=== PATIENT | female | born 1945 | race Caucasian/White ===

== ENCOUNTER 2022-07-15 05:37 | Outpatient (CLI) | payer MEDICARE ==
[~2022-07-15] VITALS: Ht 162.6 cm; Wt 83.9 kg
[~2022-07-15 05:37] MED LIST: DONE10TA5 PO; FLORASTOR 250 MG PO; LEVE100S PO; LEVE500T19 PO; LISI20TA PO; LORA0.5T34 PO; METH500T7 PO; METO25TA PO; NAPR-689 PO; OMEP20CA12 PO; RISP0.2516 PO; ZOLP10TA5 PO; [UNRECOGNIZED DRUG - OTHER] PO
[2022-07-15] MEDS ORDERED: MTP25TSR PO (11:47)
[2022-07-15] MEDS ORDERED: LEVE10006 PO (11:47)
[2022-07-15] MEDS ORDERED: DONE10TA41 PO (11:47)
[2022-07-15] MEDS ORDERED: CHOL10007 PO (11:47)
[2022-07-15] MEDS ORDERED: FERR-84 PO (11:47)
[2022-07-15] MEDS ORDERED: OXYB5TAB13 PO (11:47)
[2022-07-15] MEDS ORDERED: RISP0.5T65 PO (11:47)
[2022-07-15] MEDS ORDERED: PRAM0.252 PO (11:47)
[2022-07-15] MEDS ORDERED: LISI20TA26 PO (11:47)
[2022-07-15] MEDS ORDERED: OMEP20TA56 PO (11:47)
== END 2022-07-15 11:50 | disposition home or self-care (01) ==
LOC: PREOP 05:37
PROVIDERS: ATTEND Surgery
DX: Z01.818 Encounter for other preprocedural examination (principal)

== ENCOUNTER 2022-07-26 10:00 | Day surgery (SDC) | payer MEDICAID, MEDICARE ==
[~2022-07-26] VITALS: Ht 162.6 cm; Wt 83.9 kg
[~2022-07-26 10:00] MED LIST changes: +CHOL10007 PO; +DONE10TA41 PO; +FERR-84 PO; +LEVE10006 PO; +LISI20TA26 PO; +MTP25TSR PO; +OMEP20TA56 PO; +OXYB5TAB13 PO; +PRAM0.252 PO; +RISP0.5T65 PO
[2022-07-26] MEDS ORDERED: LACTATED RINGERS 1,000 ML IV STA (10:02)
[2022-07-26] MEDS ORDERED: HURRICAINE EXT TUBE (BENZOCAINE) XX PRN (10:15)
[2022-07-26 10:20] VITALS: BP 168/79
--- NOTE | 2022-07-26 10:46 | Progress Note-Pre Operative ---
Pre-Operative Progress Note Date of Available H&P: Jul 08, 2022 Date H&P Reviewed: Jul 26, 2022 Time H&P Reviewed: 10:45 History & Physical: H&P Reviewed, Patient Examed, No changes noted Pre-Operative Diagnosis: Anemia, colon screening KOURTNEY BHATIA DO Jul 26, 2022 10:46
[2022-07-26] MEDS ORDERED: PROPOFOL INJECTION 50 ML IV ONE (11:37)
[2022-07-26 12:10] VITALS: BP 121/60
[2022-07-26 12:15] VITALS: BP 143/119
--- NOTE | 2022-07-26 12:16 | Progress Note-Post Operative ---
Post-Operative Progess Note Surgeon (s)/Lcac Operator (s) Surgeon KOURTNEY BHATIA DO Lcac Operator: none Pre-Operative Diagnosis Anemia, colon screening Post-Operative Diagnosis Gastritis Hiatal Hernia Polyp/mass Asc colon diverticula int hemorrhoids Procedure & Operative Findings Date of Procedure 07/26/22 Procedure Performed/Findings EGD with biopsy Colonoscopy with hot biopsy PROCEDURE NOTE: After informed consent was obtained, the patient was brought to the endoscopy suite, placed in bed in left lateral decubitus position. She was administered IV sedation by Anesthesia who then monitored vitals the entire time, heart rate, blood pressure and pulse ox and the scope was inserted down the mouth through the esophagus into the stomach. On the way down, noted some mild esophagitis, took a picture, pushed into the stomach, pushed past the antrum into the duodenum. Duodenum looked good. Pulled back and did a biopsy of antrum, then retroflexed the scope, saw very small hiatal hernia, took a picture of this and then pulled the scope into the GE junction and then did a biopsy of the GE junction. Pushed the scope back into the stomach, suctioned all the air out of the stomach. At this point pulled the scope up the esophagus and out the mouth. Switched camera, switched gloves, went down below and started the colonoscopy. Pushed towards the cecum and just before I got to the cecum saw a mass/large polyp. I took a picture of this and then pushed past it and was only about 15cm from the cecum, took a picture of appendiceal orifice and noted the ileocecal valve. Then slowly withdrew the scope insufflating to look circumferentially at the clark starting in the cecum and up the ascending colon. Elected to do a hot biopsy of the mass/large polyp; got two biopsies. Continued up to the hepatic flexure, then down the transverse colon to the splenic flexure, into the descending colon and down into the sigmoid. Throughout here I saw some large diverticula and took a picture. Finally, into the rectal vault and retroflexed the scope. Took picture of the internal hemorrhoids. The patient tolerated the procedure and she recovered in the endoscopy suite. Recommended for repeat colonoscopy in 1 year Anesthesia Type IV sedation by Anesthesia Estimated Blood Loss Estimated blood loss (mL): scant Specimens/Packing Specimens Removed antral bx GE jxn bx Asc colon mass KOURTNEY BHATIA DO Jul 26, 2022 12:16
--- NOTE | 2022-07-26 12:18 | Endoscopy Discharge Instruct ---
Endo Procedure/Findings Findings 1.: Hiatal Hernia, Gastritis 2.: Polyp 3.: Diverticulosis 4.: Internal Hemorrhoids Discharge Instructions - Activity: You might feel a little sleepy until tomorrow. This is due to the medicine you received to relax you. Until tomorrow, you should: NOT drive a car, operate machinery or power tools. NOT drink any alcoholic beverages. NOT make any important decisions or sign importortant papers. Do not return to work until tomorrow, unless otherwise instructed. Resume previous activities tomorrow. Diet: Start by taking liquids. If you tolerate liquids, advance to solid food. 1.: EGD in 3 years 2.: Colonoscopy in 1 year Notify Physician - If you experience excessive bleeding, unusual abdominal pain, fever, or chest pain, contact your doctor immediately. KOURTNEY BHATIA DO Jul 26, 2022 12:18
[2022-07-26 12:20] VITALS: BP 146/71
[2022-07-26 12:55] VITALS: BP 150/72
--- NOTE | 2022-07-26 13:27 | Anesthesia-General Post-Op ---
MAC Patient Condition Mental Status/LOC: Same as Preop Cardiovascular: Satisfactory Nausea/Vomiting: Absent Respiratory: Satisfactory Pain: Controlled Complications: Absent Post Op Complications Complications None Follow Up Care/Instructions Patient Instructions None needed. Anesthesiology Discharge Order Discharge Order Patient was doing well after the procedure with no complaints, stable vital signs, no apparent adverse anesthesia problems. No complications reported per nursing. RUBEN MENA DO Jul 26, 2022 13:27
== END 2022-07-26 13:19 | disposition home or self-care (01) ==
LOC: ENDO 10:00
PROVIDERS: ATTEND Surgery
DX: C18.2 Malignant neoplasm of ascending colon (principal); K29.50 Unspecified chronic gastritis without bleeding; K44.9 Diaphragmatic hernia without obstruction or gangrene; K57.30 Diverticulosis of large intestine without perforation or abscess without bleeding; K64.8 Other hemorrhoids; K63.5 Polyp of colon; K20.90 Esophagitis, unspecified without bleeding; D50.9 Iron deficiency anemia, unspecified; E66.9 Obesity, unspecified; Z68.31 Body mass index [BMI] 31.0-31.9, adult

== ENCOUNTER → 2022-08-09 | Outpatient (CLI) | payer MEDICARE | LOC: CARD 12:58 | PROVIDERS: ATTEND Internal Medicine Cardiovascular Disease | DX: I08.3 Combined rheumatic disorders of mitral, aortic and tricuspid valves (principal); I11.9 Hypertensive heart disease without heart failure; I25.10 Atherosclerotic heart disease of native coronary artery without angina pectoris | CPT/HCPCS: 93306 ==

== ENCOUNTER 2022-08-11 05:58 | Outpatient (CLI) | payer MEDICARE ==
[~2022-08-11] VITALS: Ht 162.6 cm; Wt 84.8 kg
[2022-08-12] MEDS ORDERED: FERR220S15 PO (10:15)
== END 2022-08-12 10:16 | disposition home or self-care (01) ==
LOC: PREOP 05:58
PROVIDERS: ATTEND Surgery
DX: Z01.818 Encounter for other preprocedural examination (principal)

== ENCOUNTER 2022-08-18 08:55 | Inpatient (IN) | payer MEDICARE ==
[2022-08-18] VITALS (11 sets, daily range): BP systolic 116–187; BP diastolic 69–104
[~2022-08-18] VITALS: Ht 162.5 cm; Wt 98.7 kg
[~2022-08-18 08:55] MED LIST changes: +FERR220S15 PO
[2022-08-18] MEDS ORDERED: CLINDAMYCIN 600 MG/50 ML IVPB 50 ML IV ONE (09:15)
[2022-08-18] MEDS ORDERED: BUP/EPI 0.5% 1:200,000 (SENSORCAINE) 30 ML VIAL ONE (09:15)
[2022-08-18] MEDS ORDERED: ROCURONIUM 50 MG/5 ML (ZEMURON) VIAL IV ONE (09:58)
[2022-08-18] MEDS ORDERED: proPOfol 200 MG/20 ML (DIPRIVAN) VIAL IV ONE (09:58)
[2022-08-18] MEDS ORDERED: ONDANSETRON 4 MG/2 ML (SDV) Z0FRAN ONE (09:58)
[2022-08-18] MEDS ORDERED: LIDOCAINE PF 2% 5 ML (XYLOCAINE) VIAL ONE (09:58)
[2022-08-18] MEDS ORDERED: fentaNYL INJ 100 MCG/2 ML AMP ONE ×2 (09:58→12:44)
[2022-08-18] MEDS ORDERED: MIDAZOLAM 2 MG/2 ML (VERSED) VIAL ONE (09:59)
[2022-08-18 10:10] LABS: BASOPHILS % (AUTO) 1 % (0-10); EOSINOPHILS # (AUTO) 0.1 10^3/uL (0.0-0.3); EOSINOPHILS % (AUTO) 2 % (0-10); HEMATOCRIT 30 % (35-52); HEMOGLOBIN 8.8 g/dL (11.5-16.0); LYMPHOCYTES # (AUTO) 1.1 10^3/uL (1.0-4.0); LYMPHOCYTES % (AUTO) 29 % (12-44); MEAN CORPUSCULAR HEMOGLOBIN 21 pg (25-34); MEAN CORPUSCULAR HGB CONC 29 g/dL (32-36); MEAN CORPUSCULAR VOLUME 72 fL (80-99); MEAN PLATELET VOLUME 9.5 fL (9.0-12.2); MONOCYTES # (AUTO) 0.5 10^3/uL (0.0-1.0); MONOCYTES % (AUTO) 13 % (0-12); NEUTROPHILS # (AUTO) 2.2 10^3/uL (1.8-7.8); NEUTROPHILS % (AUTO) 56 % (42-75); PLATELET COUNT 294 10^3/uL (130-400); WHITE BLOOD COUNT 3.9 10^3/uL (4.3-11.0)
[2022-08-18] MEDS: LACTATED RINGERS 1,000 ML IV PRN ×3 (10:39→13:04)
--- NOTE | 2022-08-18 10:43 | Progress Note-Pre Operative ---
Pre-Operative Progress Note Date of Available H&P: Aug 03, 2022 Date H&P Reviewed: Aug 18, 2022 Time H&P Reviewed: 10:39 History & Physical: H&P Reviewed, Patient Examed, No changes noted Pre-Operative Diagnosis: Colon Cancer - right side KOURTNEY BHATIA DO Aug 18, 2022 10:43
[2022-08-18] MEDS ORDERED: BUP/EPI 0.5% 1:200,000 (SENSORCAINE) 30 ML VIAL INJ ONE (11:35)
[2022-08-18] MEDS ORDERED: GLYCOPYRROLATE 0.2 MG/ML (ROBINUL) 2 ML VIAL ONE (12:11)
[2022-08-18] MEDS ORDERED: NEOSTIGMINE (BLOXIVERZ ) 1 MG/1ML 10 ML VIAL ONE (12:11)
[2022-08-18] MEDS ORDERED: PHENYLEPHRINE INJ 10 MG/ML (FOR PYXIS KITS ONLY) ONE (12:13)
[2022-08-18] MEDS ORDERED: PHENYLEPHRINE 100 MCG/ML 10 ML (ANESTHESIA) SYR ONE (12:14)
--- NOTE | 2022-08-18 12:14 | Progress Note-Post Operative ---
Post-Operative Progess Note Surgeon (s)/Media Promoter (s) Surgeon KOURTNEY BHATIA DO Media Promoter: Jah Pre-Operative Diagnosis Colon Cancer - right side Post-Operative Diagnosis same plus intraperitoneal mass Procedure & Operative Findings Date of Procedure 08/18/22 Procedure Performed/Findings 1) Lap hand assisted Right Hemicolectomy 2) Exc intraperitoneal mass Anesthesia Type GET Estimated Blood Loss Estimated blood loss (mL): less than 50ml Specimens/Packing Specimens Removed right colon with appy and portion of TI intraperitoneal mass KOURTNEY BHATIA DO Aug 18, 2022 12:14
[2022-08-18] MEDS ORDERED: BUPIVACAINE 0.5% 30 ML (SENSORCAINE) VIAL ONE (12:17)
[2022-08-18] MEDS ORDERED: BUPIVACAINE 0.5% 30 ML (SENSORCAINE) VIAL INJ ONE (12:19)
[2022-08-18] MEDS ORDERED: SUGAMMADEX 500 MG/5 ML VIAL (BRIDION) IV ONE ×2 (12:43→13:14)
[2022-08-18] MEDS ORDERED: HYDROmorphone 2 MG/ML VIAL (DILAUDID) ONE (12:56)
[2022-08-18] MEDS ORDERED: HYDROmorphone 2 MG/ML VIAL (DILAUDID) IV ONE (13:00)
[2022-08-18] MEDS ORDERED: fentaNYL INJ 100 MCG/2 ML AMP IVP ONE (13:00)
[2022-08-18] MEDS ORDERED: ONDANSETRON 4 MG/2 ML (SDV) Z0FRAN IVP PRN (13:00)
[2022-08-18] MEDS ORDERED: ESMOLOL 100 MG/10 ML (BREVIBLOC) VIAL ONE (13:14)
[2022-08-18] MEDS: metroNIDAZOLE 500MG/100ML IVPB 100 ML IV SCH ×2 (16:01→23:30)
[2022-08-18] MEDS: LACTATED RINGERS 1,000 ML IV SCH ×2 (16:01→19:55)
[2022-08-18] MEDS: ACETAMINOPHEN 500 MG TAB (TYLENOL) PO SCH ×2 (16:02→23:31)
[2022-08-18] MEDS: KETOROLAC 30 MG/ML VIAL IVP SCH ×2 (16:02→21:51)
[2022-08-18] MEDS: morphine INJ 4 MG/ML 1 ML (VIAL/SYRINGE) IVP PRN (20:06)
[2022-08-18] MEDS: CLINDAMYCIN 600 MG/50 ML IVPB 50 ML IV SCH (20:06)
--- NOTE | 2022-08-18 23:36 | OPERATIVE REPORT ---
DATE OF SERVICE: 08/18/2022 PREOPERATIVE DIAGNOSIS: Right colon cancer. POSTOPERATIVE DIAGNOSES: 1. Right colon cancer. 2. Intraperitoneal mass. SURGEON: Cruzito Aragon DO TRIMMER HELPER: Monico Tyson DO ANESTHESIA: General endotracheal tube. SPECIMEN: 1. Right colon with cecum, ascending colon, appendix and portion of terminal ileum. 2. Intraperitoneal mass. ESTIMATED BLOOD LOSS: Less than 50 mL FLUIDS: Per anesthesia. POSTOPERATIVE CONDITION: Stable. INDICATIONS FOR PROCEDURE: The patient is a 76-year-old female who had a colonoscopy, which unfortunately found colon cancer on the right colon, needed to get this removed. FINDINGS: The patient had a right colon mass. Did not feel any obvious lymphadenopathy. Liver felt okay. There was a small white mass on the small intestine. This intraperitoneal mass was removed and sent to pathology. DESCRIPTION OF PROCEDURE: After informed consent was obtained, the patient was brought to the operating room and placed on the table in supine position. She was sterilely prepped and draped in normal fashion. We made an incision in the midline from just below the umbilicus to just above. Approximately 8 cm incision using a 15 blade, carried down through the skin and subcutaneous tissue, then deepened down to subcutaneous tissue with Bovie electrocautery down to fascia. Fascia incised with Bovie electrocautery and bluntly entered the abdomen, swept a finger around and made sure the fascia was about 8 cm defect as well. Placed a malleable and then placed another port, a 12 mm port in the upper abdomen using local lidocaine. An 11 blade for stab incision and VersaStep system, all done under direct visualization. At this point, hooked this up to the pneumoperitoneum and placed a wound protector and then the GelPort and then placed another port in the right lower quadrant, a 5 mm VersaStep system using local lidocaine 11 blade for stab incision and VersaStep system, all under direct visualization. The patient was placed slightly reverse Trendelenburg, rotated to the left, placed my hand into the abdomen. I could feel the tumor and then used the spatula with Bovie cautery to come along the white line of Toldt in the right pericolic gutter going up around the hepatic flexure and across taking some adhesions down from the liver and found the duodenum, pushed this away and down and rotated the rest of the specimen. The right colon and some of the transverse colon into the midline, freed up down around the terminal ileum as well. Once I had this freed up with some blunt dissection and Bovie electrocautery, then elected to pull this through the hand port, able to get this up and placed a GAYATHRI-75 across the terminal ileum just past the mesenteric sail, clamped and fired thereby transecting and made a defect in the mesentery with Bovie electrocautery and then went above on the transverse colon about 6 inches away from the colon cancer. Made a defect in the mesentery with Bovie cautery. Then, using another GAYATHRI-75 clamped, held for 30 seconds and then fired thereby transecting this and then came across the mesentery going straight down and then across to take this portion of colon out. The cecum, ascending colon and portion of transverse colon as well as terminal ileum and appendix. This was removed, passed off the table and sent to pathology. I then elected to create a [id number] functional end-to-end anastomosis coloenterotomy. Made a defect in the antimesenteric border of the small intestine as well another defect in the taenia of the transverse colon with Bovie electrocautery, placed a GAYATHRI-75 one side on either one of the intestine clamped and held this together then held for 30 seconds and then fired thereby creating a [id number] functional end-to-end anastomosis using another GAYATHRI-75 to close the coloenterotomy. This closed nicely. I had irrigated with IrriSept to reduce infection, then irrigated with some saline, suctioned this out. There was no bleeding. Found what looked like a small white mass in the peritoneum right along the small intestine. Elected to remove this with Bovie electrocautery. There was a little bit of bleeding. This was controlled with 3-0 Vicryl suture. The patient was then placed supine, dropped everything back in, suctioned this out, looked around, did not see any other obvious pathology. At this point, then elected to close the incision, removed the wound protector, closed the fascia with #1 PDS suture running from the inferior to the superior portion tying to itself and then looked back in the abdomen. The incision was closed nicely, took a picture of this and then removed all ports under direct visualization allowed pneumoperitoneum to escape, closed the port incisions with adriana as well as closed the midline incision with adriana. Area was cleaned and dried, dressings placed. The patient tolerated the procedure. Sponge and needle counts correct at the end of the case and she was transferred to recovery room in stable condition. Dr. Tyson assisted in this case, helping to make incisions, close incisions, identify anatomy and hold anatomy out of the way. Job ID: [id number] DocumentID: [id number] Dictated Date: 08/18/2022 15:17:53 [place] Mixer Operator Date: 08/18/2022 23:34:00 Dictated By: DO JERO MCKNIGHT
[2022-08-19] VITALS (7 sets, daily range): BP systolic 105–164; BP diastolic 52–74
[2022-08-19] MEDS: morphine INJ 4 MG/ML 1 ML (VIAL/SYRINGE) IVP PRN ×2 (00:21→23:08)
[2022-08-19] MEDS: LACTATED RINGERS 1,000 ML IV SCH ×4 (01:10→22:49)
[2022-08-19] MEDS: KETOROLAC 30 MG/ML VIAL IVP SCH ×4 (03:58→20:03)
[2022-08-19] MEDS: CLINDAMYCIN 600 MG/50 ML IVPB 50 ML IV SCH (03:58)
[2022-08-19] MEDS: ACETAMINOPHEN 500 MG TAB (TYLENOL) PO SCH ×3 (06:29→22:50)
--- NOTE | 2022-08-19 08:01 | Progress Note - Surgery ---
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 She says that she is feeling tired this morning and has been experiencing some pain in her stomach that she describes as crampy, 4/10, worsened by movement and mostly present in the midline of her abdomen. She has not yet had a BM or passed flatus. Has not been up and ambulating since her surgery. During the interview, she became nauseous and vomited while complaining of worsening stomach pain. For this she was administered toradol. Review of Systems General: No Chills, No Night Sweats; Fatigue HEENT: No Head Aches, No Visual Changes Pulmonary: No Dyspnea, No Cough Cardiovascular: No: Chest Pain, Palpitations Gastrointestinal: Nausea, Vomiting, Abdominal Pain, Other (Has not passed flatus or had a BM) Genitourinary: Other (Has not urinated since her catheter was removed) Neurological: No: Weakness, Numbness, Confusion Objective Exam Vital Signs Date Time Temp Pulse Resp B/P (MAP) Pulse Ox O2 Delivery O2 Flow Rate FiO2 08/19/22 07:40 36.5 68 18 105/53 (70) 100 Nasal Cannula 3.00 08/19/22 06:13 Nasal Cannula 3.00 08/19/22 04:31 36.3 69 20 105/53 (70) 98 Nasal Cannula 3.00 08/19/22 00:02 36.6 75 20 109/52 (71) 95 Nasal Cannula 3.00 08/18/22 20:10 Nasal Cannula 3.00 08/18/22 19:57 36.5 82 16 116/69 (85) 98 Nasal Cannula 3.00 08/18/22 16:39 Nasal Cannula 3.00 08/18/22 16:06 36.4 118 10 133/75 (94) 99 Nasal Cannula 3.00 08/18/22 14:06 36.1 105 18 163/74 (103) 96 Nasal Cannula 3.00 08/18/22 13:50 Nasal Cannula 3.00 08/18/22 13:40 Nasal Cannula 3.00 08/18/22 13:40 36.5 22 160/80 (106) 95 Nasal Cannula 3.00 08/18/22 13:30 14 162/81 (108) 93 OxyMask 4.00 08/18/22 13:25 OxyMask 10 08/18/22 13:20 16 166/87 (113) 94 OxyMask 10 08/18/22 13:10 24 175/95 (121) 94 OxyMask 10 08/18/22 13:10 OxyMask 10 08/18/22 13:00 12 160/91 (114) 93 OxyMask 10 08/18/22 12:55 OxyMask 10 08/18/22 12:50 12 183/104 (130) 96 OxyMask 10 08/18/22 12:40 Non Rebreather 10 08/18/22 12:40 36.5 20 187/102 (130) 95 Non Rebreather 10 08/18/22 09:15 36.6 104 20 147/90 (109) 98 Room Air 08/18/22 09:05 98 Room Air I & O 08/19/22 07:00 Intake Total 3400 ml Output Total 650 ml Balance 2750 ml Capillary Refill : General Appearance: Mild Distress (Patient became nauseous during the interview and began to experience increased abdominal pain) HEENT: PERRL/EOMI, Moist Mucous Membranes; No Scleral Icterus (L), No Scleral Icterus (R) Neck: Non Tender, Supple; No Carotid Bruit, No Thyromegaly Respiratory: Chest Non Tender, Lungs Clear, Normal Breath Sounds, No Accessory Muscle Use, No Respiratory Distress Cardiovascular: No Gallop, No Murmur, Normal Peripheral Pulses Peripheral Pulses: 2+ Radial Pulses (R), 2+ Radial Pulses (L) Gastrointestinal: soft, abnormal bowel sounds (Absent bowel sounds), distended; No guarding; tenderness (Mostly relegated to midline) Extremity: Normal Capillary Refill, Non Tender, No Calf Tenderness, Calf Tenderness, Pedal Edema (Wearing sequential compression stockings) Neurologic/Psychiatric: Alert, Oriented x3 Skin: Normal Color, Warm/Dry; No Jaundice Results Lab Laboratory Tests 08/18/22 10:00: White Blood Count 3.9L, Red Blood Count 4.17, Hemoglobin 8.8L, Hematocrit 30L, Mean Corpuscular Volume 72L, Mean Corpuscular Hemoglobin 21L, Mean Corpuscular Hemoglobin Concent 29L, Red Cell Distribution Width 18.2H, Platelet Count 294, Mean Platelet Volume 9.5, Immature Granulocyte % (Auto) 0, Neutrophils (%) (Auto) 56, Lymphocytes (%) (Auto) 29, Monocytes (%) (Auto) 13H, Eosinophils (%) (Auto) 2, Basophils (%) (Auto) 1, Neutrophils # (Auto) 2.2, Lymphocytes # (Auto) 1.1, Monocytes # (Auto) 0.5, Eosinophils # (Auto) 0.1, Basophils # (Auto) 0.0, Immature Granulocyte # (Auto) 0.0 Assessment/Plan Assessment/Plan Admission Diagonsis Moderately differentiated adenocarcinoma of ascending colon Assessment/Plan Moderately differentiated adenocarcinoma of ascending colon - post-op day 1 following bowel resection, patient has not yet passed flatus or had a BM, not yet up and ambulating, will continue pain and nausea management and plan to have patient up and walking with nursing assistance. Anemia - possibly due to iron deficiency or chronic disease, continue to monitor for changes in hemoglobin and physical signs of worsening anemia. DVT prophylaxis - enoxaparin sodium to be administered. CRUZITO ARAGON DO 08/19/22 1648: Subjective Time Seen by a Provider: 11:47 Subjective/Events-last exam Pt seen and examined, sitting up in chair. She had some emesis this am and still feels a little nauseous. She would like to advance her diet, wants more than liquids. She apparently did not walk until just before I saw her this morning. Review of Systems General: No Chills, No Night Sweats; Fatigue Pulmonary: No Dyspnea, No Cough Cardiovascular: No: Chest Pain, Palpitations Gastrointestinal: Nausea, Vomiting, Abdominal Pain, Other (Has not passed flatus or had a BM) Genitourinary: Other (Has not urinated since her catheter was removed) Objective Exam General Appearance: Mild Distress (Patient became nauseous during the interview and began to experience increased abdominal pain) HEENT: PERRL/EOMI, Moist Mucous Membranes Respiratory: Lungs Clear, Normal Breath Sounds, No Accessory Muscle Use, No Respiratory Distress Cardiovascular: Regular Rate, Rhythm, No Murmur Gastrointestinal: abnormal bowel sounds (Absent bowel sounds), distended; No guarding; tenderness (Mostly relegated to midline), other (incisions are c/d/i) Extremity: Pedal Edema (Wearing sequential compression stockings) Assessment/Plan Assessment/Plan Assessment/Plan S/P Right Hemicolectomy Plan to encourage ambulation and IS use, will also have PT see to help pt walk. Will keep on clears and if she feel better will try soft diet at dinner. Supervisory-Addendum Brief Verification & Attestation Participated in pt care: history, MDM, physical Personally performed: exam, history, MDM, supervision of care Care discussed with: Medical Student Procedures: n/a Verification and Attestation of Medical Student E/M Service A medical student performed and documented this service. I then reviewed and verified all information documented by the medical student and made modifications to such information, when appropriate. I personally performed a physical exam, medical decision making and then discussed any differences between the notes and made revisions as necessary to create one note. Cruzito Aragon , 08/19/22 , 16:48 MARY ANN RAMIREZ Aug 19, 2022 08:01 CRUZITO ARAGON DO Aug 19, 2022 16:48
--- NOTE | 2022-08-19 08:26 | Anesthesia-General Post-Op ---
General Patient Condition Mental Status/LOC: Same as Preop Cardiovascular: Satisfactory Nausea/Vomiting: Absent Respiratory: Satisfactory Pain: Controlled Complications: Absent Post Op Complications Complications None Follow Up Care/Instructions Patient Instructions None needed. Anesthesia/Patient Condition Patient Condition Patient is doing well, no complaints, stable vital signs, no apparent adverse anesthesia problems. No complications reported per nursing. FRANCESCO SHEIKH CRNA Aug 19, 2022 08:26
[2022-08-19] MEDS: PANTOPRAZOLE 40 MG (PROTONIX) VIAL IVP SCH (08:40)
[2022-08-19] MEDS ORDERED: CATHETER FLUSH 10 ML SYR IVP PRN (09:00)
[2022-08-19] MEDS ORDERED: PRAM0.257 PO (11:08)
[2022-08-19] MEDS: ENOXAPARIN 40 MG/0.4 ML (LOVENOX) SYR SC SCH (14:12)
--- NOTE | 2022-08-19 14:26 | Physical Therapy Evaluation ---
PT Evaluation-General Medical Diagnosis Admission Date Aug 18, 2022 at 08:55 Medical Diagnosis: colon cancer Onset Date: Aug 18, 2022 Therapy Diagnosis Therapy Diagnosis: debility Height/Weight Height (Feet): 5 Height (Inches): 4.00 Weight (Pounds): 193 Weight (Ounces): 3.0 Precautions Precautions/Isolations: Fall Prevention, Standard Precautions Referral Physician: Margo Medical History Current History s/p colon resection Reviewed History: Yes Social History Home: Single Level Current Living Status: Other Family Prior Prior Level of Function SCALE: Activities may be completed with or without assistive devices. 7-Rsdzlbdiqn-roaaysl completes the activity by him/herself with no assistance from a helper. 5-Set-up or Clean-up Assistance-helper sets up or cleans up; patient completes activity. [place] assists only prior to or following the activity. 4-Supervision or Touching Assistance-helper provides verbal cues and/or touching/steadying and/or contact guard assistance as patient completes activity. Assistance may be provided throughout the activity or intermittently. 3-Partial/Moderate Assistance-helper does LESS THAN HALF the effort. [place] lifts, holds or supports trunk or limbs, but provides less than half the effort. 2-Substantial/Maximal Assistance-helper does MORE THAN HALF the effort. [place] lifts or holds trunk or limbs and provides more than half the effort. 2-Hsopnjgme-elskvn does ALL the effort. Patient does none of the effort to complete the activity. Or, the assistance of 2 or more helpers is required for the patient to complete the activity. If activity was not attempted, code reason: 7-Patient Refused. 9-Not Applicable-not attempted and the patient did not perform the activity before the current illness, exacerbation or injury. 10-Not Attempted due to Environmental Limitations-(lack of equipment, weather restraints, etc.). 88-Not Attempted due to Medical Conditions or Safety Concerns. Bed Mobility: 6 Transfers (B,C,W/C): 6 Gait: 6 Stairs: 6 Indoor Mobility (Ambulation): Independent Stairs: Independent Prior Devices Use: None PT Evaluation-Current Subjective Patient agrees to PT. Pain Numeric Pain Scale: 8 Location: Lower Location Body Site: Abdomen Pain Description: Acute Objective Patient Orientation: Person, Time, Situation Attachments: IV ROM/Strength ROM Lower Extremities bilateral LE WFL Strength Lower Extremities 3/5 grossly bilateral LE all planes Sensory Vision: Functional Hearing: Functional Transfers Sit to Lying (QC): 3 Lying to Sitting/Side of Bed(Q: 3 Sit to Stand (QC): 3 Gait Mode of Locomotion: Walk Anticipated Mode of Locomotion: Walk Walk 10 feet (QC): 4 Walk 50 ft with 2 Turns(QC): 4 Walk 150 ft (QC): 4 Distance: 225' Gait Assistive Device: FWW Comments/Gait Description slow, steady pace Balance Sitting Static: Normal Sitting Dynamic: Normal Standing Static: Fair Standing Dynamic: Fair Assessment/Needs Patient will benefit from skilled PT to address functional strength and mobility to improve current LOF to safely return to home with family at maximum LOF. Rehab Potential: Fair PT Mcc Goals Radial Saw Operator Goals PT Mcc Goals Time Frame: Sep 04, 2022 Roll Left & Right (QC): 6 Sit to Lying (QC): 6 Lying-Sitting on Side/Bed(QC): 6 Sit to Stand (QC): 6 Chair/Bxi-uq-Mikos Xfer(QC): 6 Toilet Transfer (QC): 6 Walk 10 feet (QC): 6 Walk 50ft with 2 Turns (QC): 6 Walk 150 ft (QC): 6 PT Plan Problem List Problem List: Activity Tolerance, Functional Strength, Safety, Balance, Gait, Transfer, Bed Mobility Treatment/Plan Treatment Plan: Continue Plan of Care Treatment Plan: Bed Mobility, Education, Functional Activity Earlene, Functional Strength, Gait, Safety, Therapeutic Exercise, Transfers Treatment Duration: Sep 04, 2022 Frequency: 6 times per week Estimated Hrs Per Day: .25 hour per day Patient and/or Family Agrees t: Yes Time Time In: 1322 Time Out: 1340 DATE: Aug 19, 2022 Total Billed Treatment Time: 18 Total Billed Treatment 1 visit EVMod 18 min BRIGETTE FRANCISCO PT Aug 19, 2022 14:26
[2022-08-19] MEDS: ONDANSETRON 4 MG/2 ML (SDV) Z0FRAN IVP PRN (20:03)
[2022-08-20 03:29] VITALS: BP 163/72
[2022-08-20] MEDS: KETOROLAC 30 MG/ML VIAL IVP SCH ×4 (03:32→21:58)
[2022-08-20] MEDS: ACETAMINOPHEN 500 MG TAB (TYLENOL) PO SCH ×3 (06:02→23:47)
[2022-08-20] MEDS: LACTATED RINGERS 1,000 ML IV SCH ×3 (06:14→22:09)
--- NOTE | 2022-08-20 07:26 | Progress Note - Surgery ---
TOYA JUNG 08/20/22 0726: Subjective Date Seen by a Provider: Aug 20, 2022 Time Seen by a Provider: 07:14 Subjective/Events-last exam Patient is sitting up in bed uncomfortably this morning. Stating that she has a "rough" night. She had worsening abdominal pain throughout the night which she said was an 8/10 and then received morphine which she says improved it to a 5/10 currently. Her current pain has remained unchanged from yesterday. She was not able to eat any soft food. She sipped some apple juice yesterday with little discomfort, but has not sipped any other liquids at this time. She has not had any flatus or BM since surgery. She was able to ambulate down the trivedi twice yesterday with PT. She is using IS. She had multiple episodes of dry heaving throughout the night. She did have nausea this morning but was improved with Zofran. She denies SOB, chest pain, fever, or chills. Is voiding without problem. She has no other complaints at this time. Review of Systems General: No Chills, No Night Sweats; Fatigue HEENT: No Head Aches, No Sore Throat Pulmonary: No Dyspnea, No Cough Cardiovascular: No: Chest Pain, Edema Gastrointestinal: Nausea, Vomiting (Dry heaving), Abdominal Pain Genitourinary: No Dysuria, No Hematuria Musculoskeletal: No: neck pain, back pain Neurological: Weakness; No: Numbness Objective Exam Vital Signs Date Time Temp Pulse Resp B/P (MAP) Pulse Ox O2 Delivery O2 Flow Rate FiO2 08/20/22 03:29 36.3 105 20 163/72 (102) 93 Nasal Cannula 2.00 08/19/22 23:05 37.0 94 20 164/74 (104) 95 Nasal Cannula 2.00 08/19/22 20:11 95 Nasal Cannula 2.00 08/19/22 20:10 36.3 95 16 137/63 (87) 83 Room Air 08/19/22 19:50 Room Air 08/19/22 16:00 36.9 75 16 149/67 (94) 91 Room Air 08/19/22 15:33 Room Air 08/19/22 11:33 36.7 66 18 110/57 (74) 91 Room Air 08/19/22 08:18 Room Air 0.00 08/19/22 08:07 99 Nasal Cannula 3.00 08/19/22 08:00 99 Room Air 08/19/22 07:40 36.5 68 18 105/53 (70) 100 Nasal Cannula 3.00 I & O 08/20/22 07:00 Intake Total 5920 ml Output Total 1800 ml Balance 4120 ml Capillary Refill : General Appearance: No Apparent Distress, Anxious, Mild Distress, Obese HEENT: PERRL/EOMI, Moist Mucous Membranes Neck: Non Tender, Supple Respiratory: Lungs Clear, Normal Breath Sounds, No Accessory Muscle Use, No Respiratory Distress Cardiovascular: Regular Rate, Rhythm, No Murmur Peripheral Pulses: 2+ Radial Pulses (R), 2+ Radial Pulses (L) Gastrointestinal: distended; No guarding; tenderness (Diffuse) Extremity: No Pedal Edema, Calf Tenderness, Other (Wearing sequential compression stockings) Neurologic/Psychiatric: Alert, Oriented x3 Skin: Normal Color, Warm/Dry, Other (Incisions are dry, clean, and intact) Results Lab Microbiology 08/18/22 MRSA Screen - Final, Complete MRSA not isolated Assessment/Plan Assessment/Plan Assessment/Plan S/P Right Hemicolectomy- Day 2 Moderately differentiated adenocarcinoma of ascending colon Anemia DVT prophylaxis Plan Continue pain management Continue with PT/ encourage ambulation Continue with clear liquid diet/ advance as tolerated IS CRUZITO ARAGON DO 08/20/22 1511: Subjective Time Seen by a Provider: 14:34 Subjective/Events-last exam Pt seen and examined, she was asleep in her bed. She was easily arousable and stated pain is a little better. Still only taking liquids. Review of Systems General: Fatigue Pulmonary: No Dyspnea, No Cough Cardiovascular: No: Chest Pain Gastrointestinal: Nausea, Vomiting (Dry heaving), Abdominal Pain Neurological: Weakness Objective Exam General Appearance: No Apparent Distress, Anxious, Obese HEENT: Moist Mucous Membranes Respiratory: Lungs Clear, Normal Breath Sounds, No Accessory Muscle Use, No Respiratory Distress Cardiovascular: Regular Rate, Rhythm, No Murmur Gastrointestinal: No distended, No guarding; tenderness (Diffuse), other (incisions c/d/i) Extremity: Other (Wearing sequential compression stockings) Neurologic/Psychiatric: Alert, Oriented x3 Assessment/Plan Assessment/Plan Assessment/Plan S/P Right Hemicolectomy- Day 2 Moderately differentiated adenocarcinoma of ascending colon Anemia DVT prophylaxis Plan Continue pain management Continue with PT - pt told she has to get up and ambulate, its the only way she is going to get better Continue with clear liquid diet/ advance as tolerated. Encourage IS Supervisory-Addendum Brief Verification & Attestation Participated in pt care: history, MDM, physical Personally performed: exam, history, MDM, supervision of care Care discussed with: Medical Student Procedures: n/a Verification and Attestation of Medical Student E/M Service A medical student performed and documented this service. I then reviewed and verified all information documented by the medical student and made modifications to such information, when appropriate. I personally performed a physical exam, medical decision making and then discussed any differences between the notes and made revisions as necessary to create one note. Cruzito Aragon , 08/20/22 , 15:11 TOYA JUNG Aug 20, 2022 07:26 CRUZITO ARAGON DO Aug 20, 2022 15:11
[2022-08-20 07:44] VITALS: BP 143/69
[2022-08-20] MEDS: PANTOPRAZOLE 40 MG (PROTONIX) VIAL IVP SCH (09:21)
--- NOTE | 2022-08-20 11:13 | Physical Therapy Daily Note ---
PT Daily Note-Current Subjective Patient agrees to PT. Pain Section J - Health Conditions 1. Rarely or not at all 2. Occasionally 3. Frequently 4. Almost constantly 8. Unable to answer Pain Effect on Sleep: 2 Pain Interference with Therapy: 2 Pain Interference w/Day-to-Day: 2 Mental Status Patient Orientation: Normal For Age Attachments: IV Transfers SCALE: Activities may be completed with or without assistive devices. 8-Hbtmlbnmys-xqzobog completes the activity by him/herself with no assistance from a helper. 5-Set-up or Clean-up Assistance-helper sets up or cleans up; patient completes activity. [place] assists only prior to or following the activity. 4-Supervision or Touching Assistance-helper provides verbal cues and/or touching/steadying and/or contact guard assistance as patient completes ac tivity. Assistance may be provided throughout the activity or intermittently. 3-Partial/Moderate Assistance-helper does LESS THAN HALF the effort. [place] lifts, holds or supports trunk or limbs, but provides less than half the effort. 2-Substantial/Maximal Assistance-helper does MORE THAN HALF the effort. [place] lifts or holds trunk or limbs and provides more than half the effort. 7-Uhbdmoass-xcjywk does ALL the effort. Patient does none of the effort to complete the activity. Or, the assistance of 2 or more helpers is required for the patient to complete the activity. If activity was not attempted, code reason: 7-Patient Refused. 9-Not Applicable-not attempted and the patient did not perform the activity before the current illness, exacerbation or injury. 10-Not Attempted due to Environmental Limitations-(lack of equipment, weather restraints, etc.). 88-Not Attempted due to Medical Conditions or Safety Concerns. Sit to Lying (QC): 3 (assist for bilateral LE's) Lying to Sitting/Side of Bed(Q: 4 Sit to Stand (QC): 4 Gait Training Distance: 300' Walk 10 feet (QC): 4 Walk 50 ft with 2 Turns(QC): 4 Walk 150 ft (QC): 4 Gait Assistive Device: FWW slow, steady gait sequence with multiple standing recovery periods due to SOA and fatigue Exercises Seated Therapy Exercises: Ankle pumps, Long arc quads Seated Reps: 15 Assessment Patient requires time to complete all functional tasks due to fatigue and decreased functional endurance. PT to continue to increase activity as patient tolerates. PT Prison Goals Prison Goals PT Prison Goals Time Frame: Sep 04, 2022 Roll Left & Right (QC): 6 Sit to Lying (QC): 6 Lying-Sitting on Side/Bed(QC): 6 Sit to Stand (QC): 6 Chair/Nux-vn-Hhxof Xfer(QC): 6 Toilet Transfer (QC): 6 Walk 10 feet (QC): 6 Walk 50ft with 2 Turns (QC): 6 Walk 150 ft (QC): 6 PT Plan Treatment/Plan Treatment Plan: Continue Plan of Care Treatment Plan: Bed Mobility, Education, Functional Activity Earlene, Functional Strength, Gait, Safety, Therapeutic Exercise, Transfers Treatment Duration: Sep 04, 2022 Frequency: 6 times per week Estimated Hrs Per Day: .25 hour per day Patient and/or Family Agrees t: Yes Time Time In: 1030 Time Out: 1053 DATE: Aug 20, 2022 Total Billed Treatment Time: 23 Total Billed Treatment 1 visit FA x 2 23 min BRIGETTE FRANCISCO PT Aug 20, 2022 11:13
[2022-08-20 11:24] VITALS: BP 111/66
[2022-08-20] MEDS: ENOXAPARIN 40 MG/0.4 ML (LOVENOX) SYR SC SCH (12:10)
[2022-08-20] MEDS: morphine INJ 4 MG/ML 1 ML (VIAL/SYRINGE) IVP PRN (12:11)
[2022-08-20 16:00] VITALS: BP 159/81
[2022-08-20 20:03] VITALS: BP 145/70
[2022-08-20 23:14] VITALS: BP 145/77
[2022-08-21] VITALS (8 sets, daily range): BP systolic 133–192; BP diastolic 65–89
[2022-08-21] MEDS: KETOROLAC 30 MG/ML VIAL IVP SCH ×4 (03:44→19:34)
[2022-08-21] MEDS: LACTATED RINGERS 1,000 ML IV SCH ×2 (06:13→20:25)
[2022-08-21] MEDS: ACETAMINOPHEN 500 MG TAB (TYLENOL) PO SCH ×2 (06:49→14:18)
[2022-08-21] MEDS ORDERED: NON-FORMULARY MEDICATION 1 EA EA (Cholecalciferol (Vitamin D3) (Vitamin D3) 25 MCG) PO SCH (09:00)
--- NOTE | 2022-08-21 09:02 | Progress Note - Surgery ---
TOYA JUNG 08/21/22 0902: Subjective Date Seen by a Provider: Aug 21, 2022 Time Seen by a Provider: 08:56 Subjective/Events-last exam Patient is sitting up in the chair this morning appearing uncomfortable. She states that her abdominal pain is worse than yesterday, rating it a 6/10 compare d to a 5/10 yesterday. She does endorse flatus today but no BM yet. She was able to walk the trivedi 4 times yesterday. She is tolerating liquids currently. She has not been using her IS as instructed. She denies any fever, chills, chest pain, N/V/D, dysuria, or hematuria. Review of Systems General: No Chills, No Night Sweats; Fatigue HEENT: No Head Aches, No Sore Throat Pulmonary: Dyspnea, Cough Cardiovascular: Edema; No: Chest Pain Gastrointestinal: Abdominal Pain; No: Nausea, Vomiting Genitourinary: No Dysuria, No Hematuria Musculoskeletal: back pain, leg pain Neurological: Weakness; No: Numbness Objective Exam Vital Signs Date Time Temp Pulse Resp B/P (MAP) Pulse Ox O2 Delivery O2 Flow Rate FiO2 08/21/22 08:05 36.6 116 20 171/85 (113) 97 Nasal Cannula 2.00 08/21/22 03:21 37.1 109 18 156/70 (98) 95 High Flow N/C 2.00 08/20/22 23:14 36.5 105 16 145/77 (99) 98 High Flow N/C 1.00 08/20/22 20:03 36.6 103 20 145/70 (95) 94 Nasal Cannula 2.00 08/20/22 20:00 Nasal Cannula 1.00 08/20/22 19:18 Nasal Cannula 1.00 08/20/22 16:00 36.9 114 20 159/81 (107) 92 High Flow N/C 1.00 08/20/22 11:24 36.1 101 18 111/66 (81) 90 Room Air I & O 08/21/22 07:00 Intake Total 2200 ml Output Total 950 ml Balance 1250 ml Capillary Refill : General Appearance: No Apparent Distress, Anxious, Obese HEENT: PERRL/EOMI, Moist Mucous Membranes Neck: Non Tender, Supple Respiratory: No Accessory Muscle Use, No Respiratory Distress, Crackles (Bilateral lower lobes) Cardiovascular: No Murmur, Tachycardia Peripheral Pulses: 2+ Radial Pulses (R), 2+ Radial Pulses (L) Gastrointestinal: No distended, No guarding; tenderness (Diffuse, very minor) Extremity: Calf Tenderness, Pedal Edema (+2 bilaterally), Other Neurologic/Psychiatric: Alert, Oriented x3 Skin: Normal Color, Warm/Dry, Other (Incisions clean, dry, and intact) Results Lab Microbiology 08/18/22 MRSA Screen - Final, Complete MRSA not isolated Assessment/Plan Assessment/Plan Assessment/Plan S/P Right Hemicolectomy- POD #3 Moderately differentiated adenocarcinoma of ascending colon Anemia DVT prophylaxis HTN/Tachycardia Plan Continue pain management Continue with PT - encourage ambulation Continue with clear liquid diet/ advance as tolerated. Encourage IS CRUZITO ARAGON DO 08/21/22 1414: Subjective Time Seen by a Provider: 12:34 Subjective/Events-last exam Pt seen and examined, she states pain is better now and she passed some gas. She is tolerating clears. Nurse is concerned about elevated BP and mild tachycardia. Review of Systems General: No Chills, No Night Sweats; Fatigue Pulmonary: Dyspnea, Cough Cardiovascular: Edema; No: Chest Pain Gastrointestinal: Abdominal Pain; No: Nausea, Vomiting Musculoskeletal: back pain, leg pain Neurological: Weakness Objective Exam General Appearance: No Apparent Distress, Anxious, Obese HEENT: Moist Mucous Membranes Respiratory: No Accessory Muscle Use, No Respiratory Distress, Crackles (Bilateral lower lobes) Cardiovascular: No Murmur, Tachycardia Gastrointestinal: soft; No distended, No guarding; tenderness (Diffuse, very minor), other (incisions c/d/i) Extremity: Calf Tenderness, Pedal Edema (+2 bilaterally) Neurologic/Psychiatric: Alert, Oriented x3 Assessment/Plan Assessment/Plan Assessment/Plan S/P Right Hemicolectomy- POD #3 for Moderately differentiated adenocarcinoma of ascending colon HTN - resumed home meds and will monitor Tachycardia - ordered Metoprolol 5mg Anemia DVT prophylaxis Plan Continue pain management Continue with PT - encourage ambulation Continue with clear liquid diet/ advance as tolerated. Encourage IS Supervisory-Addendum Brief Verification & Attestation Participated in pt care: history, MDM, physical Personally performed: exam, history, MDM, supervision of care Care discussed with: Medical Student Procedures: n/a Verification and Attestation of Medical Student E/M Service A medical student performed and documented this service. I then reviewed and verified all information documented by the medical student and made modifications to such information, when appropriate. I personally performed a physical exam, medical decision making and then discussed any differences between the notes and made revisions as necessary to create one note. Cruzito Aragon , 08/21/22 , 14:14 TOYA JUNG Aug 21, 2022 09:02 CRUZITO ARAGON DO Aug 21, 2022 14:14
[2022-08-21] MEDS: OXYBUTYNIN (DITROPAN) 5 MG TAB PO SCH ×2 (09:31→21:27)
[2022-08-21] MEDS: PANTOPRAZOLE 40 MG (PROTONIX) VIAL IVP SCH (09:31)
[2022-08-21] MEDS: risperiDONE 0.5 MG (RisperDAL) TABLET PO SCH ×2 (09:31→21:48)
[2022-08-21] MEDS: lisINopril 20 MG (PRINIVIL) TABLET PO SCH (09:31)
--- NOTE | 2022-08-21 10:01 | Physical Therapy Daily Note ---
PT Daily Note-Current Subjective Pt agreeable to ambulation. Pain Section J - Health Conditions 1. Rarely or not at all 2. Occasionally 3. Frequently 4. Almost constantly 8. Unable to answer Pain Effect on Sleep: 2 Pain Interference with Therapy: 2 Pain Interference w/Day-to-Day: 2 Transfers SCALE: Activities may be completed with or without assistive devices. 7-Uxnaxybans-hyctcbh completes the activity by him/herself with no assistance from a helper. 5-Set-up or Clean-up Assistance-helper sets up or cleans up; patient completes activity. [place] assists only prior to or following the activity. 4-Supervision or Touching Assistance-helper provides verbal cues and/or touching/steadying and/or contact guard assistance as patient completes activity. Assistance may be provided throughout the activity or intermittently. 3-Partial/Moderate Assistance-helper does LESS THAN HALF the effort. [place] lifts, holds or supports trunk or limbs, but provides less than half the effort. 2-Substantial/Maximal Assistance-helper does MORE THAN HALF the effort. [place] lifts or holds trunk or limbs and provides more than half the effort. 7-Yetqrblll-lchovr does ALL the effort. Patient does none of the effort to complete the activity. Or, the assistance of 2 or more helpers is required for the patient to complete the activity. If activity was not attempted, code reason: 7-Patient Refused. 9-Not Applicable-not attempted and the patient did not perform the activity before the current illness, exacerbation or injury. 10-Not Attempted due to Environmental Limitations-(lack of equipment, weather restraints, etc.). 88-Not Attempted due to Medical Conditions or Safety Concerns. Sit to Stand (QC): 4 Chair/Tmu-rm-Sljcm Xfer(QC): 4 Gait Training Gait Assistive Device: FWW Ambulated 350ft with FWW and SBA for balance. Pt had some shortness of breath, requiring verbal cues for pacing. Assessment Demonstrated steady gait with no lateral deviation. She will benefit from continued PT for generalized strengthening and mobility training. PT Assisted Goals [facility] Representative Goals PT Assisted Goals Time Frame: Sep 04, 2022 Roll Left & Right (QC): 6 Sit to Lying (QC): 6 Lying-Sitting on Side/Bed(QC): 6 Sit to Stand (QC): 6 Chair/Qdf-sg-Xwoik Xfer(QC): 6 Toilet Transfer (QC): 6 Walk 10 feet (QC): 6 Walk 50ft with 2 Turns (QC): 6 Walk 150 ft (QC): 6 PT Plan Treatment/Plan Treatment Plan: Continue Plan of Care Treatment Plan: Bed Mobility, Education, Functional Activity Earlene, Functional Strength, Gait, Safety, Therapeutic Exercise, Transfers Treatment Duration: Sep 04, 2022 Frequency: 6 times per week Estimated Hrs Per Day: .25 hour per day Patient and/or Family Agrees t: Yes Time Time In: 929 Time Out: 944 DATE: Aug 21, 2022 Total Billed Treatment Time: 15 Total Billed Treatment visit, gait 15 minutes KAYA BROWN PT Aug 21, 2022 10:01
[2022-08-21] MEDS ORDERED: RT-ALBUTEROL SULF 2.5 MG/3 ML PRE-MIX VIAL ONE (10:19)
[2022-08-21] MEDS ORDERED: RT-ALBUTEROL SULF 2.5 MG/3 ML PRE-MIX VIAL INH PRN (10:30)
[2022-08-21] MEDS: ENOXAPARIN 40 MG/0.4 ML (LOVENOX) SYR SC SCH (12:20)
[2022-08-21] MEDS: meTOprolol 5 MG/5 ML (LOPRESSOR) VIAL IV PRN ×2 (14:17→22:28)
[2022-08-21] MEDS: ONDANSETRON 4 MG/2 ML (SDV) Z0FRAN IVP PRN (20:32)
[2022-08-21] MEDS ORDERED: NON-FORMULARY MEDICATION 1 EA EA (Pramipexole Di-HCl (Pramipexole Dihydrochloride) 0.25 MG PO SCH (21:00)
[2022-08-21] MEDS: PRAMIPEXOLE 0.125 MG (MIRAPEX) TABLET PO SCH (21:11)
[2022-08-21] MEDS: DONEPEZIL 10 MG (ARICEPT) TAB PO SCH ×2 (21:27→21:49)
[2022-08-21] MEDS: morphine INJ 4 MG/ML 1 ML (VIAL/SYRINGE) IVP PRN ×2 (21:50→23:47)
[2022-08-21] MEDS: RT-ALBUTEROL SULF 2.5 MG/3 ML PRE-MIX VIAL INH SCH (22:13)
[2022-08-21] MEDS ORDERED: morphine INJ 4 MG/ML 1 ML (VIAL/SYRINGE) IVP ONE (23:30)
[2022-08-21] MEDS ORDERED: ENALAPRILAT 2.5 MG/2 ML (VASOTEC) VIAL IV ONE ×2 (23:30→23:38)
[2022-08-22] VITALS: BP 179/83
[2022-08-22] MEDS: ACETAMINOPHEN 500 MG TAB (TYLENOL) PO SCH ×4 (00:16→22:01)
[2022-08-22 01:53] LABS: BASOPHILS % (AUTO) 0 % (0-10); EOSINOPHILS % (AUTO) 1 % (0-10); HEMATOCRIT 32 % (35-52); HEMOGLOBIN 9.3 g/dL (11.5-16.0); LYMPHOCYTES # (AUTO) 0.2 10^3/uL (1.0-4.0); LYMPHOCYTES % (AUTO) 8 % (12-44); MEAN CORPUSCULAR HEMOGLOBIN 21 pg (25-34); MEAN CORPUSCULAR HGB CONC 29 g/dL (32-36); MEAN CORPUSCULAR VOLUME 73 fL (80-99); MEAN PLATELET VOLUME 9.8 fL (9.0-12.2); MONOCYTES # (AUTO) 0.1 10^3/uL (0.0-1.0); MONOCYTES % (AUTO) 7 % (0-12); NEUTROPHILS # (AUTO) 1.6 10^3/uL (1.8-7.8); NEUTROPHILS % (AUTO) 83 % (42-75); PLATELET COUNT 309 10^3/uL (130-400); WHITE BLOOD COUNT 1.9 10^3/uL (4.3-11.0)
[2022-08-22 02:02] LABS: ALBUMIN 2.6 GM/DL (3.2-4.5); POTASSIUM 3.9 MMOL/L (3.6-5.0)
[2022-08-22 02:03] LABS: CALCIUM 8.6 MG/DL (8.5-10.1)
[2022-08-22 02:06] LABS: BILIRUBIN,TOTAL 0.9 MG/DL (0.1-1.0)
[2022-08-22 02:08] LABS: CREATININE SERUM 0.92 MG/DL (0.60-1.30)
[2022-08-22] MEDS ORDERED: APIXABAN 5 MG (ELIQUIS) TABLET PO ONE (02:30)
[2022-08-22] MEDS ORDERED: meTOprolol SUCCINATE 100 MG (TOPROL XL) TAB PO ONE (02:30)
[2022-08-22] MEDS ORDERED: LACTATED RINGERS 1,000 ML IV SCH ×3 (02:30→22:30)
[2022-08-22 03:30] VITALS: BP 88/51
[2022-08-22] MEDS: KETOROLAC 30 MG/ML VIAL IVP SCH ×3 (03:48→15:59)
[2022-08-22] MEDS: ONDANSETRON 4 MG/2 ML (SDV) Z0FRAN IVP PRN (05:58)
--- NOTE | 2022-08-22 06:06 | Progress Note - Surgery ---
TOYA JUNG 08/22/22 0606: Subjective Date Seen by a Provider: Aug 22, 2022 Time Seen by a Provider: 06:01 Subjective/Events-last exam Patient is laying in bed this morning in mild distress. She is repeatedly exclaiming "it hurts" this morning referring to her abdominal pain, which she rates a 7/10 this morning. Last night she received her first solid meal since surgery and ate all her mashed potatoes and chicken and wanted more after she was finished. After eating she started having increased pain. She has not had any flatus since eating dinner last night, and no BM since yesterday morning. She was able to ambulate yesterday. She has not be using her IS routinely. She denies any N/V/D, fever, chills, or chest pain at this time. She does endorse SOB. Review of Systems General: No Chills; Fatigue, Malaise HEENT: No Head Aches, No Sore Throat Pulmonary: Dyspnea; No Cough Cardiovascular: Edema; No: Chest Pain Gastrointestinal: Abdominal Pain; No: Nausea, Vomiting Genitourinary: No Dysuria, No Hematuria Musculoskeletal: back pain; No: leg pain Neurological: Weakness; No: Numbness Focused Exam Lactate Level 08/22/22 01:45: Lactic Acid Level 1.92 Objective Exam Vital Signs Date Time Temp Pulse Resp B/P (MAP) Pulse Ox O2 Delivery O2 Flow Rate FiO2 08/22/22 03:30 37.7 130 22 88/51 (63) 98 Nasal Cannula 3.00 08/22/22 01:01 134 08/22/22 00:00 38.3 126 24 179/83 (115) 94 Nasal Cannula 2.00 08/21/22 22:13 87 Nasal Cannula 2.00 08/21/22 20:00 Nasal Cannula 1.00 08/21/22 19:40 36.9 103 20 136/65 (88) 93 Nasal Cannula 2.00 08/21/22 19:22 36.8 106 91 08/21/22 19:05 88 Nasal Cannula 2.00 08/21/22 16:30 37.1 95 22 133/77 (95) 94 Nasal Cannula 2.00 08/21/22 11:49 36.7 119 20 161/79 (106) 97 Nasal Cannula 2.00 08/21/22 10:46 36.8 106 95 08/21/22 10:22 95 Nasal Cannula 1.00 08/21/22 09:07 36.8 106 20 192/89 (123) 94 Nasal Cannula 2.00 08/21/22 09:00 Nasal Cannula 1.00 08/21/22 08:05 36.6 116 20 171/85 (113) 97 Nasal Cannula 2.00 I & O 08/22/22 07:00 Intake Total 840 ml Output Total 400 ml Balance 440 ml Capillary Refill : General Appearance: Anxious, Mild Distress, Obese HEENT: PERRL/EOMI, Moist Mucous Membranes Neck: Non Tender, Supple Respiratory: No Accessory Muscle Use, No Respiratory Distress, Crackles (Bilateral lower lobes) Cardiovascular: No Murmur, Tachycardia Peripheral Pulses: 2+ Radial Pulses (R), 2+ Radial Pulses (L) Gastrointestinal: soft; No distended, No guarding; tenderness (Tender to pa lpation in epigastsric region), other (Incison clean, dry, intact.) Extremity: Calf Tenderness, Pedal Edema (+2 bilaterally) Neurologic/Psychiatric: Alert, Oriented x3 Skin: Normal Color, Warm/Dry Results Lab Laboratory Tests 08/22/22 01:45: White Blood Count 1.9L, Red Blood Count 4.39, Hemoglobin 9.3L, Hematocrit 32L, Mean Corpuscular Volume 73L, Mean Corpuscular Hemoglobin 21L, Mean Corpuscular Hemoglobin Concent 29L, Red Cell Distribution Width 18.6H, Platelet Count 309, Mean Platelet Volume 9.8, Immature Granulocyte % (Auto) 1, Neutrophils (%) (Auto) 83H, Lymphocytes (%) (Auto) 8L, Monocytes (%) (Auto) 7, Eosinophils (%) (Auto) 1, Basophils (%) (Auto) 0, Neutrophils # (Auto) 1.6L, Lymphocytes # (Auto) 0.2L, Monocytes # (Auto) 0.1, Eosinophils # (Auto) 0.0, Basophils # (Auto) 0.0, Immature Granulocyte # (Auto) 0.0, Sodium Level 139, Potassium Level 3.9, Chloride Level 109H, Carbon Dioxide Level 21, Anion Gap 9, Blood Urea Nitrogen 15, Creatinine 0.92, Estimat Glomerular Filtration Rate 64, BUN/Creatinine Ratio 16, Glucose Level 110H, Lactic Acid Level 1.92, Calcium Level 8.6, Corrected Calcium 9.7, Total Bilirubin 0.9, Aspartate Amino Transf (AST/SGOT) 16, Alanine Aminotransferase (ALT/SGPT) 19, Alkaline Phosphatase 53, Total Protein 5.0L, Albumin 2.6L Microbiology 08/18/22 MRSA Screen - Final, Complete MRSA not isolated Assessment/Plan Assessment/Plan Assessment/Plan S/P Right Hemicolectomy- POD #4 for Moderately differentiated adenocarcinoma of ascending colon HTN - resumed home meds and will monitor. Last BP of 88/51 Tachycardia - ordered Metoprolol 5mg, currently active Anemia- Hgb at 9.3 from 8.8 DVT prophylaxis Plan Continue pain management Continue with PT - encourage ambulation Soft diet currently- continue but encourage slower eating and smaller portions Monitor HR and BP Encourage IS CRUZITO ARAGON DO 08/22/22 1237: Subjective Time Seen by a Provider: 12:51 Subjective/Events-last exam Pt seen and examined, lying in bed sleeping and does not appear to be in any distress. Easily arousable and does complain of some abdominal pain. I spoke with the nurse multiple times during the night regarding the patient and coordinated care with Hospitalist. Review of Systems General: No Chills; Fatigue HEENT: No Head Aches Pulmonary: Dyspnea; No Cough Cardiovascular: Edema; No: Chest Pain Gastrointestinal: No: Nausea, Vomiting Genitourinary: No Dysuria, No Hematuria Neurological: Weakness Objective Exam General Appearance: Anxious, Mild Distress, Obese Respiratory: No Accessory Muscle Use, No Respiratory Distress, Crackles (Bilateral lower lobes) Cardiovascular: No Murmur, Tachycardia (with occasional skipped beat) Gastrointestinal: soft, distended; No guarding; tenderness (Tender to palpation in epigastsric region), other ([place]ison clean, dry, intact.) Extremity: Calf Tenderness, Pedal Edema Neurologic/Psychiatric: Alert Skin: Normal Color, Warm/Dry Assessment/Plan Assessment/Plan Assessment/Plan S/P Right Hemicolectomy- POD #4 for Moderately differentiated adenocarcinoma of ascending colon HTN - resumed home meds and will monitor. Last BP of 88/51 Tachycardia - ordered Metoprolol 5mg, currently active Anemia- Hgb at 9.3 from 8.8 DVT prophylaxis Plan Pt was transferred to ICU, because after having problems with HTN she became hypotensive. I reviewed the CT myself, upper lungs look fine; she does have atelectasis and some pleural effusion. Abd/Pelvis shows fluid, dilated stomach and very dilated large bowel as well. I don't think she has leak, there is no free air in the abdomen. Most likely the fluid is the saline we washed abdomen with and some old blood. I had nurse place NGT and she is NPO. Continue pain management Continue with PT - encourage ambulation Monitor HR and BP - will control with pressors if needed (will watch MAC and try to keep above 65) she is getting her third bolus of LR Encourage IS Supervisory-Addendum Brief Verification & Attestation Participated in pt care: history, MDM, physical Personally performed: exam, history, MDM, supervision of care Care discussed with: Medical Student Procedures: n/a Verification and Attestation of Medical Student E/M Service A medical student performed and documented this service. I then reviewed and verified all information documented by the medical student and made modifications to such information, when appropriate. I personally performed a physical exam, medical decision making and then discussed any differences between the notes and made revisions as necessary to create one note. Cruzito Aragon , 08/22/22 , 12:37 TOYA JUNG Aug 22, 2022 06:06 CRUZITO ARAGON DO Aug 22, 2022 12:37
[2022-08-22 07:49] LABS: BILIRUBIN,URINE 1+ (NEGATIVE); CLARITY,URINE SL CLOUDY; COLOR,URINE ORANGE; GLUCOSE, URINE (UA) NEGATIVE (NEGATIVE); KETONES,URINE NEGATIVE (NEGATIVE); LEUKOCYTE ESTERASE ,URINE NEGATIVE (NEGATIVE); NITRITE,URINE NEGATIVE (NEGATIVE); PH,URINE 5.5 (5-9); PROTEIN,URINE 2+ (NEGATIVE)
[2022-08-22] MEDS: meTOprolol 5 MG/5 ML (LOPRESSOR) VIAL IV SCH (08:05)
[2022-08-22 08:09] LABS: BACTERIA,URINE FEW /HPF
[2022-08-22 08:10] LABS: GRANULAR CASTS,URINE RARE /LPF
[2022-08-22] MEDS: lisINopril 20 MG (PRINIVIL) TABLET PO SCH (08:35)
[2022-08-22] MEDS: OXYBUTYNIN (DITROPAN) 5 MG TAB PO SCH ×2 (08:36→22:01)
[2022-08-22] MEDS ORDERED: GENTAMICIN 40 MG/ML 2 ML INJ SDV IV SCH (08:45)
--- NOTE | 2022-08-22 08:55 | Tele-ICU Consult ---
Progress Note video rounds completed 76 y/o female who underwent a right hemicolectomy for cancer on aug 18. So now 4 days post op. Developed severe abdominal pain and transferred to ICU Currently tachycardic to 111 and also received beta blockers so pulse may be blunted BP: 91/46 LR bolus of 1 liter currently running WBC has gone from 3.9 on 08/[address] of abdomen IMP: sepsis, possible anastomtic leak PLAN: antibiotics started, she is allergic to pen and floxins so I chose clinda and gent Awaiting CT abdomen Stop beta blockets Hold apixaban Keep NPO Focused Exam Lactate Level 08/22/22 01:45: Lactic Acid Level 1.92 Height, Weight, BMI Height: 5'4.00" Weight: 193lbs. 3.0oz. 87.274664lo; 32.11 BMI Method: Labs Laboratory Tests 08/22/22 01:45 Results Results/Procedures Labs Laboratory Tests 08/22/22 01:45 Patient resulted labs reviewed. Results Labs Labs Laboratory Tests 08/22/22 01:45: White Blood Count 1.9L, Red Blood Count 4.39, Hemoglobin 9.3L, Hematocrit 32L, Mean Corpuscular Volume 73L, Mean Corpuscular Hemoglobin 21L, Mean Corpuscular Hemoglobin Concent 29L, Red Cell Distribution Width 18.6H, Platelet Count 309, Mean Platelet Volume 9.8, Immature Granulocyte % (Auto) 1, Neutrophils (%) (Auto) 83H, Lymphocytes (%) (Auto) 8L, Monocytes (%) (Auto) 7, Eosinophils (%) (Auto) 1, Basophils (%) (Auto) 0, Neutrophils # (Auto) 1.6L, Lymphocytes # (Auto) 0.2L, Monocytes # (Auto) 0.1, Eosinophils # (Auto) 0.0, Basophils # (Auto) 0.0, Immature Granulocyte # (Auto) 0.0, Sodium Level 139, Potassium Level 3.9, Chloride Level 109H, Carbon Dioxide Level 21, Anion Gap 9, Blood Urea Nitrogen 15, Creatinine 0.92, Estimat Glomerular Filtration Rate 64, BUN/Creatinine Ratio 16, Glucose Level 110H, Lactic Acid Level 1.92, Calcium Level 8.6, Corrected Calcium 9.7, Total Bilirubin 0.9, Aspartate Amino Transf (AST/SGOT) 16, Alanine Aminotransferase (ALT/SGPT) 19, Alkaline Phosphatase 53, Total Protein 5.0L, Albumin 2.6L 08/22/22 07:00: Urine Color ORANGE, Urine Clarity SL CLOUDY, Urine pH 5.5, Urine Specific [place] 1.025H, Urine Protein 2+H, Urine Glucose (UA) NEGATIVE, Urine Ketones NEGATIVE, Urine Nitrite NEGATIVE, Urine Bilirubin 1+H, Urine Urobilinogen 0.2, Urine Leukocyte Esterase NEGATIVE, Urine RBC (Auto) NEGATIVE, Urine RBC NONE, Urine WBC 2-5, Urine Squamous Epithelial Cells 5-10, Urine Crystals NONE, Urine Bacteria FEWH, Urine Casts PRESENT, Urine Hyaline Casts 5-10H, Urine Granular Casts RARE, Urine Mucus MODERATEH, Urine Culture Indicated YES Microbiology 08/18/22 MRSA Screen - Final, Complete MRSA not isolated MARY ANN CLIFFORD MD Aug 22, 2022 08:55
[2022-08-22] MEDS ORDERED: meTOprolol SUCCINATE 100 MG (TOPROL XL) TAB PO SCH (09:00)
[2022-08-22] MEDS ORDERED: APIXABAN 5 MG (ELIQUIS) TABLET PO SCH (09:00)
[2022-08-22] MEDS ORDERED: GENTAMICIN IV SCH (09:00)
[2022-08-22] MEDS ORDERED: NS IV SCH (09:00)
[2022-08-22] MEDS: PANTOPRAZOLE 40 MG (PROTONIX) VIAL IVP SCH (09:06)
[2022-08-22] MEDS: LACTATED RINGERS 1,000 ML IV SCH ×3 (09:07→20:26)
[2022-08-22] MEDS ORDERED: NS 100 ML (IVPB) BAG IV ONE (09:45)
[2022-08-22] MEDS ORDERED: IOHEXOL 350 MG/ML 100 ML (OMNIPAQUE 350) VIAL IV ONE (09:45)
--- NOTE | 2022-08-22 09:54 | Diagnostic Imaging Report ---
PROCEDURE: CT abdomen and pelvis without contrast. TECHNIQUE: Multiple contiguous axial images were obtained through the abdomen and pelvis without the use of intravenous contrast. Auto Exposure Controls were utilized during the CT exam to meet ALARA standards for radiation dose reduction. DATE: August 22, 2022. COMPARISON: None. INDICATION: 76-year-old female, abdominal pain. FINDINGS: There are limitations for evaluation of the abdominal organs, neoplastic processes, abscess, and limited evaluation of the vasculature relating to the lack of intravenous contrast. There are trace bilateral pleural effusions. There is nonspecific dependent airspace consolidation in the right lower lobe and left lower lobe. There is mild atelectasis in the lingula and right middle lobe. The heart is not grossly enlarged. There is no identified pericardial effusion. The liver is unremarkable in size and contour. The gallbladder is surgically absent. There is no biliary ductal dilation. The main pancreatic duct is not grossly dilated. Noncontrast assessment of the pancreatic parenchyma is unremarkable. The spleen is normal in size. There are accessory splenules. The adrenal glands are unremarkable. There is a low-attenuation right renal lesion on axial image 76 measuring 2.8 cm in size. Internal attenuation is consistent with a benign cyst. There is an exophytic left renal lesion which is indeterminate on axial image 86 measuring 1.3 cm in size. The urinary collecting systems are not distended. There is no identified renal or ureteral stone. Urinary bladder is collapsed. There is a Phillips catheter in the urinary bladder. There is distention of the colon up to approximately 6.6 cm in diameter. There are sutures at the level of the right colon. There is no evidence to suggest acute appendicitis. There are skin adriana along the midline anterior abdominal wall. There is a small volume ascites with attenuation compatible with simple fluid. There is no identified free intraperitoneal air. There is no identified focal well-demarcated drainable fluid collection. There are atherosclerotic calcifications. There is no identified abnormally enlarged lymph node in the abdomen or pelvis which meets CT size criteria for adenopathy. There are areas of nonspecific subcutaneous edema. There are multilevel degenerative changes of the spine. There is no identified acute bony abnormality. IMPRESSION: CT ABDOMEN AND PELVIS. 1. Trace bilateral pleural effusions. 2. Dependent airspace consolidation in the right and left lower lobes which may reflect aspiration, pneumonia, and/or atelectasis. 3. Small volume ascites. No identified focal drainable fluid collection. 4. Mild distention of the colon up to 6.6 cm in diameter. Dictated by: Dictated on workstation # [id number]
[2022-08-22] MEDS: morphine INJ 4 MG/ML 1 ML (VIAL/SYRINGE) IVP PRN ×3 (09:55→20:01)
[2022-08-22] MEDS: CLINDAMYCIN 900 MG/50 ML IVPB 50 ML IV SCH ×2 (09:55→16:55)
--- NOTE | 2022-08-22 09:57 | Diagnostic Imaging Report ---
Exam: CT angiography chest with intravenous contrast. Date: August 22, 2022. Indication: 76-year-old female, tachycardia, shortness of breath. Comparison: None. Technique: Axial CT angiographic images of the chest were obtained with intravenous contrast. Coronal and sagittal reformats were obtained and provided. 3-dimensional reformats were also obtained and provided. All CT scans use one or more of the following dose optimizing techniques: automated exposure control, MA and/or KvP adjustment based on patient size and exam type or iterative reconstruction. . Findings: There is no identified pulmonary embolus. The heart is not enlarged. There is no identified pericardial effusion. There are atherosclerotic calcifications. There are trace bilateral pleural effusions. There is dependent airspace consolidation in the right and left lower lobes which is largely homogeneously enhancing most consistent with atelectasis. There is no pneumothorax. The central airways are patent. There is no identified abnormally enlarged mediastinal, hilar, or axillary lymph node meeting CT size criteria for adenopathy. There is no identified acute bony abnormality. Impression: 1. No identified pulmonary embolus. 2. Trace bilateral pleural effusions with dependent atelectasis in the right and left lower lobes. Dictated by: Dictated on workstation # [id number]
--- NOTE | 2022-08-22 10:01 | Consultation - Hospitalist ---
HPI History of Present Illness: HPI/Chief Complaint Pt is a 76yoCF who was admitted to the hospital for colon resection due to adenocarcinoma. She underwent resection on 08/18. She had been doing well postoperatively until last night per patient. She states she was advanced to a soft diet and ate too much and then developed severe abd pain. Overnight she developed sinus tachycardia and hypertension. Cardiology was consulted for this and recommended EKG which confirmed sinus tachycardia. He started IV lopressor and Eliquis. She remained tachycardiac as well and then developed hypotension at that point medicine consult was requested. I recommended transfer to ICU and updated eICU. CTA chest was ordered and eICU recommended adding abd/pelvis which I agree with. I saw patient in the ICU just shortly after returning from CT though reports are not back yet. She states she is short of breath and is unsure when that started. She is limited by her dyspnea in giving me history thus most of history is obtained from the records. She does request pain medicine for her abd though. Source: patient Date Seen 08/22/22 Attending Physician [place] PCP Admitting Physician: Cruzito Aragon DO Attending Physician: Cruzito Aragon DO Referring Physician Date of Admission Aug 18, 2022 at 08:55 Home Medications & Allergies Home Medications Reviewed patient Home Medication Reconciliation performed by pharmacy medication reconciliations bench technician and/or nursing. Patients Allergies have been reviewed. Allergies Allergies Coded Allergies amoxicillin (Verified Allergy, Unknown, ENDS UP IN HOSPITAL DOESN'T KNOW FOR SURE, 08/12/22) moxifloxacin (Verified Allergy, Unknown, NOT SURE, 08/12/22) penicillin G (Unverified Allergy, Unknown, ?, 08/12/22) polyethylene glycol 3350 (Verified Allergy, Unknown, SKIN ISSUES TURNS BROWN, 08/12/22) Sulfa (Sulfonamide Antibiotics) (Verified Adverse Reaction, Unknown, EMESIS, 08/18/22) aspirin (Verified Adverse Reaction, Unknown, EMESIS, 08/18/22) Past Vayxzzf-Lqoonz-Rappvs Hx Patient Social History Tobacco Use?: No Smoking Status: Never a Smoker Substance use?: No Alcohol Use?: No Pt feels they are or have been: No Immunizations Up To Date Date of Influenza Vaccine: May 27, 2022 First/Initial COVID19 Vaccinat: 2020 Second COVID19 Vaccination Asim: 2021 Tetanus Booster (TDap): Unknown Date of Pneumonia Vaccine: May 27, 2022 Seasonal Allergies Seasonal Allergies: Yes Current Status Advance Directives: No Communicates: Verbally Primary Language: Ecuadorean Past Medical History Surgeries: Adenoidectomy, Hysterectomy, Tonsillectomy Currently Using CPAP: No Currently Using BIPAP: No Hypertension Dementia, Seizure Disorder 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 Review of Systems Constitutional: see HPI Physical Exam Physical Exam Vital Signs Vital Signs - First Documented 08/18/22 08/18/22 09:05 09:15 Temp 36.6 Pulse 104 Resp 20 B/P (MAP) 147/90 (109) Pulse Ox 98 O2 Delivery Room Air Capillary Refill : Height, Weight, BMI Height: 5'4.00" Weight: 193lbs. 3.0oz. 87.277050ac; 32.11 BMI Method: General Appearance: Anxious, Mild Distress (short of breath), Obese Respiratory: No Respiratory Distress, Crackles (in both bases), Other (shallow respirations) Cardiovascular: No Murmur, Tachycardia (regular) Gastrointestinal: Abnormal Bowel Sounds (quiet though present), Distended, Tenderness (mild and diffuse), Other (surgical wounds appear clean, dry, and intact) Genital/Rectal: Other (catheter in plae) Extremity: Calf Tenderness (right), Pedal Edema (+2 bilaterally) Neurologic/Psychiatric: Alert, Oriented x3 Skin: No Mottled Results Results/Procedures Labs Laboratory Tests 08/22/22 01:45 Patient resulted labs reviewed. Imaging: Reviewed Imaging Report Assessment/Plan Assessment and Plan Assess & Plan/Chief Complaint Sinus tachycardia Hypotension Etiology unclear at this time She is leukopenia so infectious work up started UA and blood cultures ordered CT Chest Abd Pelvis ordered as well Lactic acid this AM normal Cardiology consulted, appreciate recs Lopressor as BP can tolerate (SBP was 127 when I was in room) Continue abx IVF increased this AM to 150ml/hr and received 1 L bolus per eICU I spoke with Dr Aragon and with eICU physician this AM in coordinating care Adenocarcinoma of colon s/p resection by Dr Aragon Management per primary Pain regimen 2 BMs on 08/20 DVT ppx: LUCA Darling MD Aug 22, 2022 10:01
[2022-08-22] MEDS: VITAMIN D3 25 MCG (1,000 UNITS) TABLET PO SCH (10:05)
[2022-08-22] MEDS: risperiDONE 0.5 MG (RisperDAL) TABLET PO SCH ×2 (10:06→22:01)
[2022-08-22] MEDS: RT-ALBUTEROL SULF 2.5 MG/3 ML PRE-MIX VIAL INH SCH ×2 (10:47→21:44)
[2022-08-22] MEDS: ENOXAPARIN 40 MG/0.4 ML (LOVENOX) SYR SC SCH (10:53)
--- NOTE | 2022-08-22 12:39 | Diagnostic Imaging Report ---
Indication: NG placement FINDINGS: NG catheter in its lucent port are below the diaphragm in the stomach. There is mild patchy bibasilar opacities likely partial atelectasis. IMPRESSION: Og catheter in good position within the stomach. Dictated by: Dictated on workstation # [id number]
[2022-08-22] MEDS: NOREPINEPHRINE 8 MG/250 ML 250 ML IV SCH ×2 (14:18→21:00)
[2022-08-22 14:28] LABS: BASOPHILS % (AUTO) 0 % (0-10); EOSINOPHILS % (AUTO) 0 % (0-10); HEMATOCRIT 32 % (35-52); HEMOGLOBIN 9.1 g/dL (11.5-16.0); LYMPHOCYTES # (AUTO) 0.7 10^3/uL (1.0-4.0); LYMPHOCYTES % (AUTO) 8 % (12-44); MEAN CORPUSCULAR HEMOGLOBIN 21 pg (25-34); MEAN CORPUSCULAR HGB CONC 28 g/dL (32-36); MEAN CORPUSCULAR VOLUME 75 fL (80-99); MEAN PLATELET VOLUME 10.4 fL (9.0-12.2); MONOCYTES # (AUTO) 0.5 10^3/uL (0.0-1.0); MONOCYTES % (AUTO) 6 % (0-12); NEUTROPHILS # (AUTO) 7.6 10^3/uL (1.8-7.8); NEUTROPHILS % (AUTO) 86 % (42-75); PLATELET COUNT 340 10^3/uL (130-400); WHITE BLOOD COUNT 8.8 10^3/uL (4.3-11.0)
--- NOTE | 2022-08-22 15:51 | Progress Note-Post Operative ---
Post-Operative Progess Note Surgeon (s)/Ad Operations Intern (s) Surgeon KOURTNEY BHATIA DO Ad Operations Intern: none Pre-Operative Diagnosis Hypotension Post-Operative Diagnosis same Procedure & Operative Findings Date of Procedure 08/22/22 Procedure Performed/Findings Central Line Placement The patient was in their bed in the ICU, was prepped and draped in a sterile fashion. A surgical pause was performed. Ultrasound was used to locate the internal jugular vein. Once located anesthetic was infiltrated above it. Using an 18 gauge finder needle and watching with the US; the left internal jugular vein was accessed. Dark nonpulsatile blood was withdrawn. The wire was inserted. US assured proper placement. The needle was removed. A [#11] blade scalpel was used to make a stab incision along the guidewire. Dilator sheath was then advanced over the wire using Seldinger technique and the dilator was removed. The [place] catheter was inserted over the guide wire using the Seldinger technique. The [place] wire was removed. The catheter was then accessed in all three ports, good flash of blood was seen and it was then flushed with saline without any difficulty. The catheter was sutured in place with 3-0 silk on a needle. The area was then washed and dried. Sterile dressing was placed over incision. The patient tolerated the procedure well without complication. Anesthesia Type Local lidocaine Estimated Blood Loss Estimated blood loss (mL): scant Specimens/Packing Specimens Removed none KOURTNEY BHATIA DO Aug 22, 2022 15:51
[2022-08-22 16:02] LABS: BAND NEUTROPHILS 36 %; LYMPHOCYTES % (MANUAL) 8 %; METAMYELOCYTES % 6 %; MONOCYTES % (MANUAL) 5 %; MYELOCYTES % 1 %; NEUTROPHILS % (MANUAL) 44 %
[2022-08-22 16:03] LABS: BURR CELLS MODERATE; HYPOCHROMASIA SLIGHT; PLATELET ESTIMATE NORMAL; POIKILOCYTOSIS MODERATE; TOXIC GRANULATION/VACUOLAZATIO 2+
--- NOTE | 2022-08-22 16:18 | Consultation-Cardiology ---
HPI-Cardiology Cardiology Consultation: Date of Consultation 08/22/22 Time Seen by a Provider: 15:50 Date of Admission Attending Physician [place]/On License Of [facility] Admitting Physician Admitting Physician: Cruzito Aragon DO Attending Physician: Cruzito Aragon DO Consulting Physician NEAL ROMERO MD, MA, FACP, FACC, [facility] [place] Physician requesting consult: Dr Aragon HPI: Chief Complaint: Reason for Card consult: Tachycardia 76 yo woman who underwent partial colectomy and excision of intraperitoneal mass by Dr Aragon on 08/18/22. On the floor she became tachycardic in the early hours of today. ECG showed sinus tach, but A Fl with 2:1 AV conduction couldn't be definitively excluded. Accordingly, treatment with beta-mercedes (for rate control) and apixaban (for stroke prophylaxis was given). She had been noting gen malaise and some shortness of breath. Earlier, on the evening of 08/21/22, she had developed marked abdominal discomfort after diet advancement which had gradually improved but not resolved. Later this morning (08/22/22) she had started to become hypotensive and was still exhibiting sinus tach. After establishing that tachycardia is sinus tach, apixaban has been stopped. Dr Aragon asked for Hospitalist and ICU consults and pt was transferred to the ICU. Heart rate improved with fluid boluses for hypotension. She is currently awake but does not communicate much. She does not report cp or shortness of breath. Has gen malaise. Review of Systems-Cardiology Review of Systems Constitutional: other (She is not able to respond to question in detail. To the extent a review of systems could be obtained is detailed above under HPI) WTO-Iigwge-Ojymis Hx Patient Social History Smoking Status: Never a Smoker 2nd Hand Smoke Exposure: No Have you traveled recently?: No Alcohol Use?: No Pt feels they are or have been: No Immunizations Up To Date Tetanus Booster (TDap): Unknown Date of Pneumonia Vaccine: May 27, 2022 Date of Influenza Vaccine: May 27, 2022 Past Medical History PMH As described under Assessment. Family Medical History Family History: Patient reports no known family medical history. Allergies and Home Medications Allergies Coded Allergies: amoxicillin (Verified Allergy, Unknown, ENDS UP IN HOSPITAL DOESN'T KNOW FOR SURE, 08/12/22) moxifloxacin (Verified Allergy, Unknown, NOT SURE, 08/12/22) penicillin G (Unverified Allergy, Unknown, ?, 08/12/22) polyethylene glycol 3350 (Verified Allergy, Unknown, SKIN ISSUES TURNS BROWN, 08/12/22) Sulfa (Sulfonamide Antibiotics) (Verified Adverse Reaction, Unknown, EMESIS, 08/18/22) aspirin (Verified Adverse Reaction, Unknown, EMESIS, 08/18/22) Patient Home Medication List Home Medication List Reviewed: Yes Cholecalciferol (Vitamin D3) (Vitamin D3) 25 Mcg (1000 Unit) Capsule, 25 MCG PO DAILY, (Reported) Entered as Reported by: JOSHUA BASHIR on 07/15/221146 Last Action: Converted Donepezil HCl (Donepezil HCl) 10 Mg Tablet, 10 MG PO HS, (Reported) Entered as Reported by: JOSHUA BASHIR on 07/15/221146 Last Action: Continued Ferrous Sulfate (Ferrous Sulfate) 220 Mg (44 Mg Iron)/5 Ml Elix, 5 ML PO MO,WE,FR, (Reported) Entered as Reported by: ALECIA VAZQUEZ on 08/12/22 1015 Last Action: Held Levetiracetam (Levetiracetam) 1,000 Mg Tablet, 1,000 MG PO BID, (Reported) Entered as Reported by: JOSHUA BASHIR on 07/15/221146 Last Action: Continued Lisinopril (Lisinopril) 20 Mg Tablet, 20 MG PO DAILY, (Reported) Entered as Reported by: JOSHUA BASHIR on 07/15/221146 Last Action: Continued Metoprolol Succinate (Metoprolol Succinate) 25 Mg Tab.er.24h, 25 MG PO DAILY, (Reported) Entered as Reported by: JOSHUA BASHIR on 07/15/221146 Last Action: Continued Omeprazole (Omeprazole) 20 Mg Tablet.dr, 20 MG PO BID, (Reported) Entered as Reported by: JOSHUA BASHIR on 07/15/221146 Last Action: Converted Oxybutynin Chloride (Oxybutynin Chloride) 5 Mg Tablet, 5 MG PO BID, (Reported) Entered as Reported by: JOSHUA BASHIR on 07/15/221146 Last Action: Continued Pramipexole Di-HCl (Pramipexole Dihydrochloride) 0.25 Mg Tablet, 0.25 MG PO HS, (Reported) Entered as Reported by: TRACY ORELLANA on 08/19/22 1108 Last Action: Converted Risperidone (Risperidone) 0.5 Mg Tablet, 0.5 MG PO BID, (Reported) Entered as Reported by: JOSHUA BASHIR on 07/15/22 1147 Last Action: Continued Discontinued Medications Pramipexole Di-HCl (Mirapex) 0.25 Mg Tablet, 0.25 MG PO DAILY, (Reported) Discontinued Reason: Duplicate Order Entered as Reported by: JOSHUA BASHIR on 07/15/22 1147 Last Action: Discontinued Physical Exam-Cardiology Physical Exam Vital Signs/I&O 08/22/22 08/22/22 08/22/22 08/22/22 07:00 07:00 08:00 08:00 Temp 37.5 Pulse 115 113 111 Resp 42 15 B/P (MAP) 84/53 (68) 92/55 (66) Pulse Ox 94 97 O2 Delivery Nasal Cannula Nasal Cannula O2 Flow Rate 3.00 3.00 08/22/22 08/22/22 08/22/22 08/22/22 09:00 10:00 10:47 11:00 Pulse 110 118 113 Resp 15 28 21 B/P (MAP) 91/46 (61) 127/64 (85) 97/50 (56) Pulse Ox 96 97 95 93 O2 Delivery Nasal Cannula Nasal Cannula Nasal Cannula Nasal Cannula O2 Flow Rate 3.00 3.00 4.00 3.00 08/22/22 08/22/22 08/22/22 08/22/22 11:19 12:00 12:00 12:35 Temp 37.1 Pulse 109 107 Resp 13 B/P (MAP) 93/42 (58) Pulse Ox 97 94 O2 Delivery Nasal Cannula Nasal Cannula O2 Flow Rate 3.00 3.00 08/22/22 08/22/22 08/22/22 08/22/22 13:00 14:00 14:18 15:00 Pulse 106 105 112 110 Resp 11 9 21 B/P (MAP) 95/58 (73) 75/48 (59) 75/48 89/56 (70) Pulse Ox 98 97 98 O2 Delivery Nasal Cannula Nasal Cannula Nasal Cannula O2 Flow Rate 3.00 3.00 3.00 08/22/22 16:00 Pulse 115 Resp 15 B/P (MAP) 89/50 (67) Pulse Ox 99 O2 Delivery Nasal Cannula O2 Flow Rate 3.00 08/22/22 00:00 Intake Total 840 ml Output Total 400 ml Balance 440 ml Capillary Refill : Constitutional: well-developed, well-nourished, other (awake but provides minimal or no response to questions) HEENT: PERRL, EOMI Neck: carotid pulses are 2 + bilaterally, with good upstrokes Respiratory: No accessory muscle use; chest expansion is symmetric, chest is bilaterally symmetric, other (fair to good, bilateral air entry) Cardiovascular: regular rate-rhythm, S1 and S2, systolic murmur (soft SAM at cardb ase) Gastrointestinal: distended; No audible bowel sounds Extremities: No clubbing, No cyanosis, No significant edema Neurologic/Psychiatric: other (appears to be able to move all limbs) Skin: normal color, cool; No rash on exposed areas, No ulcerations on exposed areas Data Review Labs Laboratory Tests 08/22/22 01:45: White Blood Count 1.9L, Red Blood Count 4.39, Hemoglobin 9.3L, Hematocrit 32L, Mean Corpuscular Volume 73L, Mean Corpuscular Hemoglobin 21L, Mean Corpuscular Hemoglobin Concent 29L, Red Cell Distribution Width 18.6H, Platelet Count 309, Mean Platelet Volume 9.8, Immature Granulocyte % (Auto) 1, Neutrophils (%) (Auto) 83H, Lymphocytes (%) (Auto) 8L, Monocytes (%) (Auto) 7, Eosinophils (%) (Auto) 1, Basophils (%) (Auto) 0, Neutrophils # (Auto) 1.6L, Lymphocytes # (Auto) 0.2L, Monocytes # (Auto) 0.1, Eosinophils # (Auto) 0.0, Basophils # (Auto) 0.0, Immature Granulocyte # (Auto) 0.0, Sodium Level 139, Potassium Level 3.9, Chloride Level 109H, Carbon Dioxide Level 21, Anion Gap 9, Blood Urea Nitrogen 15, Creatinine 0.92, Estimat Glomerular Filtration Rate 64, BUN/Creatinine Ratio 16, Glucose Level 110H, Lactic Acid Level 1.92, Calcium Level 8.6, Corrected Calcium 9.7, Total Bilirubin 0.9, Aspartate Amino Transf (AST/SGOT) 16, Alanine Aminotransferase (ALT/SGPT) 19, Alkaline Phosphatase 53, Total Protein 5.0L, Albumin 2.6L 08/22/22 07:00: Urine Color ORANGE, Urine Clarity SL CLOUDY, Urine pH 5.5, Urine Specific [place] 1.025H, Urine Protein 2+H, Urine Glucose (UA) NEGATIVE, Urine Ketones NEGATIVE, Urine Nitrite NEGATIVE, Urine Bilirubin 1+H, Urine Urobilinogen 0.2, Urine Leukocyte Esterase NEGATIVE, Urine RBC (Auto) NEGATIVE, Urine RBC NONE, Urine WBC 2-5, Urine Squamous Epithelial Cells 5-10, Urine Crystals NONE, Urine Bacteria FEWH, Urine Casts PRESENT, Urine Hyaline Casts 5-10H, Urine Granular Casts RARE, Urine Mucus MODERATEH, Urine Culture Indicated YES 08/22/22 14:16: White Blood Count 8.8, Red Blood Count 4.32, Hemoglobin 9.1L, Hematocrit 32L, Mean Corpuscular Volume 75L, Mean Corpuscular Hemoglobin 21L, Mean Corpuscular Hemoglobin Concent 28L, Red Cell Distribution Width 19.0H, Platelet Count 340, Mean Platelet Volume 10.4, Immature Granulocyte % (Auto) 0, Neutrophils (%) (Auto) 86H, Lymphocytes (%) (Auto) 8L, Monocytes (%) (Auto) 6, Eosinophils (%) (Auto) 0, Basophils (%) (Auto) 0, Neutrophils # (Auto) 7.6, Lymphocytes # (Auto) 0.7L, Monocytes # (Auto) 0.5, Eosinophils # (Auto) 0.0, Basophils # (Auto) 0.0, Immature Granulocyte # (Auto) 0.0, Neutrophils % (Manual) 44, Lymphocytes % (Manual) 8, Monocytes % (Manual) 5, Metamyelocytes % 6, Myelocytes % 1, Band Neutrophils 36, Toxic Granulation 2+, Platelet Estimate NORMAL, Hypochromasia SLIGHT, Poikilocytosis MODERATE, Arik Cells MODERATE Microbiology 08/18/22 MRSA Screen - Final, Complete MRSA not isolated Laboratory Tests 08/22/22 01:45 08/22/22 14:16 A/P-Cardiology Assessment/Admission Diagnosis Probable septic shock - Day 5 of partial colon and intraperitoneal mass resection - Leukopenia Sinus tach and hypotension due to shock No evidence of PE on pulm CT angio of 2/26/23 Discussion and Recomendations * Management of septic shock is with Hosp and Surg and eICU svces * DVT prophylaxis * Not suitable for bb at this time * Monitor labs * Discussed case with NEAL Prasad MD FACP FACC [facility] Aug 22, 2022 16:18
--- NOTE | 2022-08-22 17:20 | Tele-ICU Progress Note ---
Progress Note WBC has risen to 8.8 from 1.9 with 36% bands HR 140 levophed started due to persistent hypotension despite fluids Surgeon has seen patient and ordered an NGT Antibiotics start (gent/clinda) Focused Exam Lactate Level 08/22/22 01:45: Lactic Acid Level 1.92 Height, Weight, BMI Height: 5'4.00" Weight: 193lbs. 3.0oz. [id number]; 32.11 BMI Method: Labs Laboratory Tests 08/22/22 01:45 08/22/22 14:16 Results Results/Procedures Labs Laboratory Tests 08/22/22 01:45 08/22/22 14:16 Patient resulted labs reviewed. Imaging: Reviewed Imaging Report Results Labs Labs Laboratory Tests 08/22/22 01:45: White Blood Count 1.9L, Red Blood Count 4.39, Hemoglobin 9.3L, Hematocrit 32L, Mean Corpuscular Volume 73L, Mean Corpuscular Hemoglobin 21L, Mean Corpuscular Hemoglobin Concent 29L, Red Cell Distribution Width 18.6H, Platelet Count 309, Mean Platelet Volume 9.8, Immature Granulocyte % (Auto) 1, Neutrophils (%) (Auto) 83H, Lymphocytes (%) (Auto) 8L, Monocytes (%) (Auto) 7, Eosinophils (%) (Auto) 1, Basophils (%) (Auto) 0, Neutrophils # (Auto) 1.6L, Lymphocytes # (Auto) 0.2L, Monocytes # (Auto) 0.1, Eosinophils # (Auto) 0.0, Basophils # (Auto) 0.0, Immature Granulocyte # (Auto) 0.0, Sodium Level 139, Potassium Level 3.9, Chloride Level 109H, Carbon Dioxide Level 21, Anion Gap 9, Blood Urea Nitrogen 15, Creatinine 0.92, Estimat Glomerular Filtration Rate 64, BUN/Creati nine Ratio 16, Glucose Level 110H, Lactic Acid Level 1.92, Calcium Level 8.6, C orrected Calcium 9.7, Total Bilirubin 0.9, Aspartate Amino Transf (AST/SGOT) 16, Alanine Aminotransferase (ALT/SGPT) 19, Alkaline Phosphatase 53, Total Protein 5.0L, Albumin 2.6L 08/22/22 07:00: Urine Color ORANGE, Urine Clarity SL CLOUDY, Urine pH 5.5, Urine Specific [place] 1.025H, Urine Protein 2+H, Urine Glucose (UA) NEGATIVE, Urine Ketones NEGATIVE, Urine Nitrite NEGATIVE, Urine Bilirubin 1+H, Urine Urobilinogen 0.2, Urine Leukocyte Esterase NEGATIVE, Urine RBC (Auto) NEGATIVE, Urine RBC NONE, Urine WBC 2-5, Urine Squamous Epithelial Cells 5-10, Urine Crystals NONE, Urine Bacteria FEWH, Urine Casts PRESENT, Urine Hyaline Casts 5-10H, Urine Granular Casts RARE, Urine Mucus MODERATEH, Urine Culture Indicated YES 08/22/22 14:16: White Blood Count 8.8, Red Blood Count 4.32, Hemoglobin 9.1L, Hematocrit 32L, Mean Corpuscular Volume 75L, Mean Corpuscular Hemoglobin 21L, Mean Corpuscular Hemoglobin Concent 28L, Red Cell Distribution Width 19.0H, Platelet Count 340, Mean Platelet Volume 10.4, Immature Granulocyte % (Auto) 0, Neutrophils (%) (Auto) 86H, Lymphocytes (%) (Auto) 8L, Monocytes (%) (Auto) 6, Eosinophils (%) (Auto) 0, Basophils (%) (Auto) 0, Neutrophils # (Auto) 7.6, Lymphocytes # (Auto) 0.7L, Monocytes # (Auto) 0.5, Eosinophils # (Auto) 0.0, Basophils # (Auto) 0.0, Immature Granulocyte # (Auto) 0.0, Neutrophils % (Manual) 44, Lymphocytes % (Manual) 8, Monocytes % (Manual) 5, Metamyelocytes % 6, Myelocytes % 1, Band Neutrophils 36, Toxic Granulation 2+, Platelet Estimate NORMAL, Hypochromasia SLIGHT, Poikilocytosis MODERATE, [place] Cells MODERATE Microbiology 08/18/22 MRSA Screen - Final, Complete MRSA not isolated MARY ANN CLIFFORD MD Aug 22, 2022 17:20
[2022-08-22] MEDS ORDERED: TROUGH ORDER-PHARMACY XX NR (18:00)
[2022-08-22 21:57] LABS: BASOPHILS # (AUTO) 0.1 10^3/uL (0.0-0.1); BASOPHILS % (AUTO) 1 % (0-10); EOSINOPHILS % (AUTO) 0 % (0-10); HEMATOCRIT 35 % (35-52); HEMOGLOBIN 9.8 g/dL (11.5-16.0); LYMPHOCYTES % (AUTO) 6 % (12-44); MEAN CORPUSCULAR HEMOGLOBIN 21 pg (25-34); MEAN CORPUSCULAR HGB CONC 28 g/dL (32-36); MEAN CORPUSCULAR VOLUME 75 fL (80-99); MEAN PLATELET VOLUME 10.6 fL (9.0-12.2); MONOCYTES # (AUTO) 0.8 10^3/uL (0.0-1.0); MONOCYTES % (AUTO) 5 % (0-12); NEUTROPHILS # (AUTO) 14.9 10^3/uL (1.8-7.8); NEUTROPHILS % (AUTO) 87 % (42-75); PLATELET COUNT 459 10^3/uL (130-400); WHITE BLOOD COUNT 17.1 10^3/uL (4.3-11.0)
[2022-08-22] MEDS: DONEPEZIL 10 MG (ARICEPT) TAB PO SCH (22:01)
[2022-08-22] MEDS: PRAMIPEXOLE 0.125 MG (MIRAPEX) TABLET PO SCH (22:01)
[2022-08-22 22:20] LABS: ALBUMIN 2.1 GM/DL (3.2-4.5); CALCIUM 8.5 MG/DL (8.5-10.1); CREATININE SERUM 2.29 MG/DL (0.60-1.30); POTASSIUM 4.7 MMOL/L (3.6-5.0); TOTAL PROTEIN 4.5 GM/DL (6.4-8.2)
[2022-08-22 22:21] LABS: BAND NEUTROPHILS 41 %; NEUTROPHILS % (MANUAL) 29 %
[2022-08-22 22:22] LABS: ATYPICAL LYMPHOCYTES 3 %; ELLIPT/OVALOCYTES SLIGHT; HYPOCHROMASIA MODERATE; LYMPHOCYTES % (MANUAL) 6 %; METAMYELOCYTES % 19 %; MONOCYTES % (MANUAL) 1 %; MYELOCYTES % 1 %; NUCLEATED RED BLOOD CELLS 5; POIKILOCYTOSIS MODERATE; TOXIC GRANULATION/VACUOLAZATIO 2+
[2022-08-22 22:23] LABS: BURR CELLS MODERATE
[2022-08-22 22:24] LABS: PLATELET ESTIMATE SLIGHTLY ELEVATED
[2022-08-22 23:26] VITALS: BP 88/49
[2022-08-22] MEDS ORDERED: HYDROCORTISONE 100 MG/2 ML (Solu-CORTEF) VIAL IV ONE (23:30)
[2022-08-22] MEDS ORDERED: ALBUMIN 5% 12.5 GM/250 ML 250 ML IV ONE ×2 (23:30→23:33)
[2022-08-22] MEDS ORDERED: HYDROCORTISONE 100 MG/2 ML (Solu-CORTEF) VIAL ONE (23:32)
[2022-08-23] VITALS (8 sets, daily range): BP systolic 87–137; BP diastolic 39–64
[2022-08-23] MEDS: NOREPINEPHRINE 8 MG/250 ML 250 ML IV SCH ×8 (00:05→21:33)
[2022-08-23] MEDS: CLINDAMYCIN 900 MG/50 ML IVPB 50 ML IV SCH ×3 (00:28→17:10)
[2022-08-23] MEDS: LACTATED RINGERS 1,000 ML IV SCH ×4 (02:46→23:27)
[2022-08-23 03:25] LABS: BASOPHILS # (AUTO) 0.1 10^3/uL (0.0-0.1); BASOPHILS % (AUTO) 1 % (0-10); EOSINOPHILS % (AUTO) 0 % (0-10); HEMATOCRIT 30 % (35-52); HEMOGLOBIN 8.7 g/dL (11.5-16.0); LYMPHOCYTES # (AUTO) 0.9 10^3/uL (1.0-4.0); LYMPHOCYTES % (AUTO) 5 % (12-44); MEAN CORPUSCULAR HEMOGLOBIN 22 pg (25-34); MEAN CORPUSCULAR HGB CONC 29 g/dL (32-36); MEAN CORPUSCULAR VOLUME 75 fL (80-99); MEAN PLATELET VOLUME 10.5 fL (9.0-12.2); MONOCYTES % (AUTO) 5 % (0-12); NEUTROPHILS # (AUTO) 17.2 10^3/uL (1.8-7.8); NEUTROPHILS % (AUTO) 87 % (42-75); PLATELET COUNT 417 10^3/uL (130-400); WHITE BLOOD COUNT 19.9 10^3/uL (4.3-11.0)
[2022-08-23 03:38] LABS: CALCIUM 8.3 MG/DL (8.5-10.1); CREATININE SERUM 2.41 MG/DL (0.60-1.30); MAGNESIUM 1.5 MG/DL (1.6-2.4); PHOSPHORUS 5.1 MG/DL (2.3-4.7); POTASSIUM 4.7 MMOL/L (3.6-5.0)
[2022-08-23] MEDS ORDERED: MAGNESIUM 1 GM/100 ML IVPB 400 ML IV ONE (04:38)
[2022-08-23] MEDS: MAGNESIUM 1 GM/100 ML IVPB 100 ML IV SCH ×3 (04:42→06:41)
[2022-08-23] MEDS ORDERED: NS IV 500 ML 500 ML IV PRN (04:45)
[2022-08-23] MEDS: POTASSIUM CL 10MEQ/50ML IVPB 50 ML IV SCH (04:50)
[2022-08-23] MEDS: KCL 20 MEQ TAB (K-DUR) PO SCH (04:50)
--- NOTE | 2022-08-23 06:09 | Progress Note - Surgery ---
TOYA JUNG 08/23/22 0609: Subjective Date Seen by a Provider: Aug 23, 2022 Time Seen by a Provider: 06:01 Subjective/Events-last exam Patient is laying in bed sleeping this morning. She is somnolent and has difficulty maintaining awareness. She is currently on BiPAP and able to nod yes or no to answer pointed questions briefly before returning to sleep. She responds no when asked if she is having stomach pain, but nods yes when asked if she feels the same as yesterday. Patient unable to endorse or describe in any detail how she is feeling otherwise. She is currently on Levophed and has NG tube in place. Urine output has been minimal since 18:00 last night. No BM was recorded according to nursing staff since moving up to ICU. Clindamycin currently running. Hilton is here in waiting room at this time. Review of Systems General: Night Sweats Pulmonary: Cough Cardiovascular: Edema Gastrointestinal: No: Vomiting Genitourinary: No Hematuria Neurological: Weakness Focused Exam Lactate Level 08/22/22 21:45: Lactic Acid Level 3.82*H 08/23/22 03:00: Lactic Acid Level 3.60*H 08/23/22 04:50: Lactic Acid Level 2.80*H Lactic Acid Level Laboratory Tests Test 08/23/22 03:00 08/23/22 04:50 Lactic Acid Level 3.60 MMOL/L (0.50-2.00) *H 2.80 MMOL/L (0.50-2.00) *H Objective Exam Vital Signs Date Time Temp Pulse Resp B/P (MAP) Pulse Ox O2 Delivery O2 Flow Rate FiO2 08/23/22 05:00 108 15 110/57 (65) 97 NIV Bilevel 30.00 08/23/22 04:42 121 123/51 08/23/22 04:00 36.0 08/23/22 04:00 111 14 114/57 (74) 97 NIV Bilevel 30.00 08/23/22 04:00 99 NIV Bilevel 30 08/23/22 03:00 113 9 112/53 (76) 96 NIV Bilevel 30.00 08/23/22 02:25 121 12 95 30.00 08/23/22 02:04 128 88/49 08/23/22 02:00 120 8 138/54 (81) 93 NIV Bilevel 30.00 08/23/22 01:45 120 7 130/63 (98) 93 NIV Bilevel 30.00 08/23/22 01:30 118 9 122/58 (77) 94 NIV Bilevel 30.00 08/23/22 01:19 118 10 99/56 (67) 95 NIV Bilevel 30.00 08/23/22 01:00 120 08/23/22 01:00 120 11 103/51 (67) 95 NIV Bilevel 30.00 08/23/22 00:20 36.8 08/23/22 00:05 128 88/49 08/23/22 00:00 126 8 108/52 (70) 94 NIV Bilevel 30.00 08/22/22 23:59 99 NIV Bilevel 30 08/22/22 23:55 NIV Bilevel 30.00 08/22/22 23:45 125 12 94/54 (67) 95 Simple Mask 5.00 08/22/22 23:26 128 14 97 30.00 08/22/22 23:08 124 15 85/52 (63) 98 Simple Mask 5.00 08/22/22 22:54 Simple Mask 5.00 08/22/22 22:39 130 19 88 Nasal Cannula 4.00 08/22/22 22:15 131 18 99/61 (78) 91 Nasal Cannula 3.00 08/22/22 22:00 134 25 101/46 (51) 93 Nasal Cannula 3.00 08/22/22 21:45 93 Nasal Cannula 3.00 08/22/22 21:00 116 94/50 08/22/22 21:00 126 28 89/53 (65) 96 Nasal Cannula 3.00 08/22/22 20:01 124 31 82/66 (71) 91 Nasal Cannula 3.00 08/22/22 20:00 97 Nasal Cannula 3.00 08/22/22 19:36 36.6 Nasal Cannula 3.00 08/22/22 19:20 131 25 96/59 (73) 95 Nasal Cannula 3.00 08/22/22 19:00 117 08/22/22 19:00 117 10 94/58 (64) 95 Nasal Cannula 3.00 08/22/22 18:20 18 94/50 (65) 97 Nasal Cannula 3.00 08/22/22 18:00 116 30 101/62 (74) 97 Nasal Cannula 3.00 08/22/22 17:00 110 18 99/73 (84) 99 Nasal Cannula 3.00 08/22/22 16:00 115 15 89/50 (67) 99 Nasal Cannula 3.00 08/22/22 16:00 96 Nasal Cannula 3.00 08/22/22 15:00 110 21 89/56 (70) 98 Nasal Cannula 3.00 08/22/22 14:18 112 75/48 08/22/22 14:00 105 9 75/48 (59) 97 Nasal Cannula 3.00 08/22/22 13:00 106 11 95/58 (73) 98 Nasal Cannula 3.00 08/22/22 12:35 107 08/22/22 12:00 109 13 93/42 (58) 94 Nasal Cannula 3.00 08/22/22 12:00 97 Nasal Cannula 3.00 08/22/22 11:19 37.1 08/22/22 11:00 113 21 97/50 (56) 93 Nasal Cannula 3.00 08/22/22 10:47 95 Nasal Cannula 4.00 08/22/22 10:00 118 28 127/64 (85) 97 Nasal Cannula 3.00 08/22/22 09:00 110 15 91/46 (61) 96 Nasal Cannula 3.00 08/22/22 08:00 111 15 92/55 (66) 97 Nasal Cannula 3.00 08/22/22 08:00 37.5 08/22/22 07:00 113 08/22/22 07:00 115 42 84/53 (68) 94 Nasal Cannula 3.00 I & O 08/23/22 07:00 Intake Total 3234.5 ml Output Total 600 ml Balance 2634.5 ml Capillary Refill : General Appearance: Anxious, Mild Distress, Obese HEENT: PERRL/EOMI; No Scleral Icterus (L), No Scleral Icterus (R) Neck: Non Tender, Supple Respiratory: Chest Non Tender, No Accessory Muscle Use, No Respiratory Distress, Crackles (Bilateral lower lobes), Other (On BiPAP) Cardiovascular: No Murmur, Tachycardia Peripheral Pulses: 2+ Radial Pulses (R), 2+ Radial Pulses (L) Gastrointestinal: soft, distended; No guarding; tenderness (Tender to palpation in epigastsric region), other (Incison clean, dry, intact. NG tube in place) Extremity: Calf Tenderness, Pedal Edema (+1 bilaterally), Other (Compression cuffs on lower extremity bilaterally) Neurologic/Psychiatric: Alert, Other (Orientited to person, arouses to name being called) Skin: Normal Color, Diaphoresis Lymphatic: No Adenopathy Results Lab Laboratory Tests 08/22/22 07:00: Urine Color ORANGE, Urine Clarity SL CLOUDY, Urine pH 5.5, Urine Specific [place] 1.025H, Urine Protein 2+H, Urine Glucose (UA) NEGATIVE, Urine Ketones NEGATIVE, Urine Nitrite NEGATIVE, Urine Bilirubin 1+H, Urine Urobilinogen 0.2, Urine Leukocyte Esterase NEGATIVE, Urine RBC (Auto) NEGATIVE, Urine RBC NONE, Urine WBC 2-5, Urine Squamous Epithelial Cells 5-10, Urine Crystals NONE, Urine Bacteria FEWH, Urine Casts PRESENT, Urine Hyaline Casts 5-10H, Urine Granular Casts RARE, Urine Mucus MODERATEH, Urine Culture Indicated YES 08/22/22 14:16: White Blood Count 8.8, Red Blood Count 4.32, Hemoglobin 9.1L, Hematocrit 32L, Mean Corpuscular Volume 75L, Mean Corpuscular Hemoglobin 21L, Mean Corpuscular Hemoglobin Concent 28L, Red Cell Distribution Width 19.0H, Platelet Count 340, Mean Platelet Volume 10.4, Immature Granulocyte % (Auto) 0, Neutrophils (%) (Auto) 86H, Lymphocytes (%) (Auto) 8L, Monocytes (%) (Auto) 6, Eosinophils (%) (Auto) 0, Basophils (%) (Auto) 0, Neutrophils # (Auto) 7.6, Lymphocytes # (Auto) 0.7L, Monocytes # (Auto) 0.5, Eosinophils # (Auto) 0.0, Basophils # (Auto) 0.0, Immature Granulocyte # (Auto) 0.0, Neutrophils % (Manual) 44, Lymphocytes % (Manual) 8, Monocytes % (Manual) 5, Metamyelocytes % 6, Myelocytes % 1, Band Neutrophils 36, Toxic Granulation 2+, Platelet Estimate NORMAL, Hypochromasia SLIGHT, Poikilocytosis MODERATE, [place] Cells MODERATE 08/22/22 21:45: White Blood Count 17.1H, Red Blood Count 4.65, Hemoglobin 9.8L, Hematocrit 35, Mean Corpuscular Volume 75L, Mean Corpuscular Hemoglobin 21L, Mean Corpuscular Hemoglobin Concent 28L, Red Cell Distribution Width 19.6H, Platelet Count 459H, Mean Platelet Volume 10.6, Immature Granulocyte % (Auto) 1, Neutrophils (%) (Auto) 87H, Lymphocytes (%) (Auto) 6L, Monocytes (%) (Auto) 5, Eosinophils (%) (Auto) 0, Basophils (%) (Auto) 1, Neutrophils # (Auto) 14.9H, Lymphocytes # (Auto) 1.0, Monocytes # (Auto) 0.8, Eosinophils # (Auto) 0.0, Basophils # (Auto) 0.1, Immature Granulocyte # (Auto) 0.2H, Neutrophils % (Manual) 29, Lymphocytes % (Manual) 6, Monocytes % (Manual) 1, Metamyelocytes % 19, Myelocytes % 1, Band Neutrophils 41, Toxic Granulation 2+, Platelet Estimate SLIGHTLY ELEVATED, Hypochromasia MODERATE, Poikilocytosis MODERATE, [place] Cells MODERATE, Nucleated Red Blood Cells 5, Atypical Lymphocytes 3, Elliptocytes SLIGHT, Sodium Level 140, Potassium Level 4.7, Chloride Level 108H, Carbon Dioxide Level 19L, Anion Gap 13, Blood Urea Nitrogen 22H, Creatinine 2.29H, Estimat Glomerular Filtration Rate 21, BUN/Creatinine Ratio 10, Glucose Level 113H, Lactic Acid Level 3.82*H, Calcium Level 8.5, Corrected Calcium 10.0, Total Bilirubin 1.0, Aspartate Amino Transf (AST/SGOT) 16, Alanine Aminotransferase (ALT/SGPT) 15, Alkaline Phosphatase 43, Total Protein 4.5L, Albumin 2.1L, Random Gentamicin Level 8.8 08/22/22 22:40: Venous Blood pH 7.17L, Venous Blood Partial Pressure CO2 61H, Venous Blood HCO3 22 08/23/22 03:00: White Blood Count 19.9H, Red Blood Count 4.00, Hemoglobin 8.7L, Hematocrit 30L, Mean Corpuscular Volume 75L, Mean Corpuscular Hemoglobin 22L, Mean Corpuscular Hemoglobin Concent 29L, Red Cell Distribution Width 19.3H, Platelet Count 417H, Mean Platelet Volume 10.5, Immature Granulocyte % (Auto) 3, Neutrophils (%) (Auto) 87H, Lymphocytes (%) (Auto) 5L, Monocytes (%) (Auto) 5, Eosinophils (%) (Auto) 0, Basophils (%) (Auto) 1, Neutrophils # (Auto) 17.2H, Lymphocytes # (Auto) 0.9L, Monocytes # (Auto) 1.0, Eosinophils # (Auto) 0.0, Basophils # (Auto) 0.1, Immature Granulocyte # (Auto) 0.6H, Sodium Level 137, Potassium L evel 4.7, Chloride Level 108H, Carbon Dioxide Level 18L, Anion Gap 11, Blood Urea Nitrogen 23H, Creatinine 2.41H, Estimat Glomerular Filtration Rate 20, BUN/Creatinine Ratio 10, Glucose Level 139H, Lactic Acid Level 3.60*H, Calcium Level 8.3L, Phosphorus Level 5.1H, Magnesium Level 1.5L 08/23/22 04:50: Lactic Acid Level 2.80*H Microbiology 08/18/22 MRSA Screen - Final, Complete MRSA not isolated Assessment/Plan Assessment/Plan Assessment/Plan S/P Right Hemicolectomy- POD #5 for Moderately differentiated adenocarcinoma of ascending colon Acute Hypotension/Possible septic shock- On levophed Acute respiratory distress- On BiPAP Leukocytosis HTN Tachycardia Anemia- Hgb at 8.7 from 9.8 DVT prophylaxis Plan: In ICU Continue IV fluids, Abx, BiPAP Continue levophed/Monitor vitals/Fluid bolus as needed NPO NG tube in place Pain management KOURTNEY ARAGON DO 08/23/22 1245: Subjective Time Seen by a Provider: 10:14 Subjective/Events-last exam Pt seen and examined, she is on BiPap but alert. Complains of abdominal pain only when moving or if abd is palpated. Her Lactic Acid came down a little bit and she started making a little bit of urine. I saw her twice, once at 10 and once just afternoon. Spoke with Hilton who is power of sports attorney. Spoke with nurse all night long and today, as well as coordinated with Hospitalist. Review of Systems General: Night Sweats, Fatigue, Malaise Pulmonary: Dyspnea, Cough Cardiovascular: Edema; No: Chest Pain Gastrointestinal: Abdominal Pain; No: Vomiting Genitourinary: No Hematuria Objective Exam General Appearance: Anxious, Mild Distress, Obese HEENT: PERRL/EOMI, Other (NG tube in place) Respiratory: Chest Non Tender, No Accessory Muscle Use, No Respiratory Distress, Crackles (Bilateral lower lobes) Cardiovascular: No Murmur, Tachycardia Peripheral Pulses: 2+ Radial Pulses (R), 2+ Radial Pulses (L) Gastrointestinal: soft, distended; No guarding; tenderness (Tender to palpation in epigastsric region), other (Incison clean, dry, intact) Extremity: Calf Tenderness, Pedal Edema (+1 bilaterally), Other (Compression cuffs on lower extremity bilaterally) Neurologic/Psychiatric: Alert, Other (Orientited to person, arouses to name being called) Skin: Diaphoresis Assessment/Plan Assessment/Plan Assessment/Plan Acute Hypotension/Possible septic shock- On levophed Acute respiratory distress- On BiPAP S/P Right Hemicolectomy- POD #5 for Moderately differentiated adenocarcinoma of ascending colon Leukocytosis HTN Tachycardia Anemia- Hgb at 8.7 from 9.8 DVT prophylaxis Plan: I ordered a bladder pressure to rule out Abdominal compartment syndrome and it was 12; which is normal. I tried some Solucortef last night and still we are having problems with her pressure. I spoke with another surgeon, discussing options and even though there is no free air; best thing to do is probably at least put a scope in and look. I spoke to [facility] about this and to get consent; Diagnostic Laparoscopy, possible Laparotomy and all other indicated procedures. Will go to the OR now. She has had multiple fluid boluses. Continue IV fluids, Abx, BiPAP, Continue levophed/Monitor vitals/Fluid bolus as needed, NPO, NG tube in place Supervisory-Addendum Brief Verification & Attestation Participated in pt care: history, MDM, physical Personally performed: exam, history, MDM, supervision of care Care discussed with: Medical Student Procedures: n/a Verification and Attestation of Medical Student E/M Service A medical student performed and documented this service. I then reviewed and verified all information documented by the medical student and made modifications to such information, when appropriate. I personally performed a physical exam, medical decision making and then discussed any differences between the notes and made revisions as necessary to create one note. Kourtney Aragon , 08/23/22 , 12:46 TOYA JUNG Aug 23, 2022 06:09 KOURTNEY ARAGON DO Aug 23, 2022 12:45
[2022-08-23] MEDS: ACETAMINOPHEN 500 MG TAB (TYLENOL) PO SCH ×3 (06:41→22:25)
[2022-08-23] MEDS: RT-ALBUTEROL SULF 2.5 MG/3 ML PRE-MIX VIAL INH SCH ×2 (06:49→21:23)
--- NOTE | 2022-08-23 06:56 | Diagnostic Imaging Report ---
INDICATION: Fluid overload Portable chest 11:42 PM There is an NG tube that enters the stomach. Left IJ central line tip projects over the SVC. There is vascular congestion. There are no effusions or pneumothoraces. Heart size is within normal limits. IMPRESSION: Pulmonary vascular congestion. No significant change from earlier the day. Dictated by: Dictated on workstation # [id number]
--- NOTE | 2022-08-23 07:40 | Physical Therapy Progress Note ---
Therapy Progress Note Patient transferred to ICU due to decline in status. PT will require new orders. BRIGETTE FRANCISCO PT Aug 23, 2022 07:40
[2022-08-23] MEDS ORDERED: NS IV 1000 ML 1,000 ML ONE ×2 (08:01→20:08)
[2022-08-23] MEDS: levETIRAcetam 1000 mg/NS 100ml IVPB IV SCH ×2 (09:02→20:22)
[2022-08-23] MEDS: VITAMIN D3 25 MCG (1,000 UNITS) TABLET PO SCH (09:17)
[2022-08-23] MEDS: OXYBUTYNIN (DITROPAN) 5 MG TAB PO SCH ×2 (09:17→20:21)
[2022-08-23] MEDS: risperiDONE 0.5 MG (RisperDAL) TABLET PO SCH ×2 (09:17→20:21)
[2022-08-23] MEDS: lisINopril 20 MG (PRINIVIL) TABLET PO SCH (09:17)
[2022-08-23] MEDS: PANTOPRAZOLE 40 MG (PROTONIX) VIAL IVP SCH (09:17)
[2022-08-23] MEDS: ENOXAPARIN 40 MG/0.4 ML (LOVENOX) SYR SC SCH (09:33)
--- NOTE | 2022-08-23 10:14 | Tele-ICU Progress Note ---
Subjective Date Seen by a Provider: Aug 23, 2022 Time Seen by a Provider: 11:56 Subjective/Events-last exam (Tele-ICU Physician , consultation) Available chart/ vitals / labs / Images reviewed H&P is from ER notes Patient's information available about PMH, allergy reviewed in EMR. ROS as per chart and RN report Video assessment done using teleICU camera, rest of exam as per RN Discussed with RN. She is a 76-year-old female who is morbidly obese apparently found to have adenocarcinoma of the ascending colon for which she underwent right hemicolectomy on 08/18/2022 and postoperatively she was recuperating and surgical floor and today she developed a respiratory distress hypoxia, hypotension. Her lactic acid is elevated. Also her urine output is decreased. She has signs and symptoms of sepsis hence she is transferred to the intensive care unit and started on IV Levophed. She is also placed on a BiPAP ventilation. Her abdomen is markedly distended and tender suspicious for some acute process. Hence she is being taken to operating room for diagnostic laparoscopy and further evalua tion. It is expected that she would come back on mechanical ventilation. Impression 1. Acute hypoxic respiratory failure secondary to possible underlying sepsis, pneumonia and bibasilar atelectasis 2. Hypotension secondary to possible sepsis 3. Lactic acidosis secondary to sepsis 4. 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 5. Morbid obesity. 6. Perioperative anemia stable. Recommendations 1. We will await the operative report 2. Patient will be possibly on mechanical ventilation and I will start on vent settings and sedation. 3. DVT prophylaxis and ulcer prophylaxis 4. Continue IV antibiotics with clindamycin and gentamicin as she has multiple allergies 5. Continue monitor her urine output and resuscitate with IV fluids 6. Continue Levophed and add vasopressin if necessary. 7. Continue keep her n.p.o. for now Coordination of care with bedside consultants and primary care physician Critical care time spent today is 38 minutes 14.52 OP NOTE REVIEWED. SHE HAS ANASTAMOTIC LEAK. SEE DETAILS IN OP NOTE Sepsis Event Evaluation Height, Weight, BMI Height: 5'4.00" Weight: 193lbs. 3.0oz. 87.667505zp; 32.11 BMI Method: Focused Exam Lactate Level 08/23/22 04:50: Lactic Acid Level 2.80*H 08/23/22 06:30: Lactic Acid Level 2.58*H 08/23/22 08:20: Lactic Acid Level 2.78*H Lactic Acid Level Laboratory Tests Test 08/23/22 06:30 08/23/22 08:20 Lactic Acid Level 2.58 MMOL/L (0.50-2.00) *H 2.78 MMOL/L (0.50-2.00) *H Exam Exam Patient acknowledged, consented, and participated in this virtual visit which was conducted using real time audio/video Vital Signs Date Time Temp Pulse Resp B/P (MAP) Pulse Ox O2 Delivery O2 Flow Rate FiO2 08/23/22 09:00 116 14 113/48 (69) 93 NIV Bilevel 30.00 08/23/22 08:24 122 115/50 08/23/22 08:00 120 21 126/46 (72) 96 NIV Bilevel 30.00 08/23/22 08:00 37.1 08/23/22 07:29 112 08/23/22 07:00 112 12 117/58 (77) 96 NIV Bilevel 30.00 08/23/22 06:49 110 17 97 30.00 08/23/22 06:00 112 12 107/64 (78) 97 NIV Bilevel 30.00 08/23/22 05:00 108 15 110/57 (65) 97 NIV Bilevel 30.00 08/23/22 04:42 121 123/51 08/23/22 04:00 36.0 08/23/22 04:00 111 14 114/57 (74) 97 NIV Bilevel 30.00 08/23/22 04:00 99 NIV Bilevel 30 08/23/22 03:00 113 9 112/53 (76) 96 NIV Bilevel 30.00 08/23/22 02:25 121 12 95 30.00 08/23/22 02:04 128 88/49 08/23/22 02:00 120 8 138/54 (81) 93 NIV Bilevel 30.00 08/23/22 01:45 120 7 130/63 (98) 93 NIV Bilevel 30.00 08/23/22 01:30 118 9 122/58 (77) 94 NIV Bilevel 30.00 08/23/22 01:19 118 10 99/56 (67) 95 NIV Bilevel 30.00 08/23/22 01:00 120 08/23/22 01:00 120 11 103/51 (67) 95 NIV Bilevel 30.00 08/23/22 00:20 36.8 08/23/22 00:05 128 88/49 08/23/22 00:00 126 8 108/52 (70) 94 NIV Bilevel 30.00 08/22/22 23:59 99 NIV Bilevel 30 08/22/22 23:55 NIV Bilevel 30.00 08/22/22 23:45 125 12 94/54 (67) 95 Simple Mask 5.00 08/22/22 23:26 128 14 97 30.00 08/22/22 23:08 124 15 85/52 (63) 98 Simple Mask 5.00 08/22/22 22:54 Simple Mask 5.00 08/22/22 22:39 130 19 88 Nasal Cannula 4.00 08/22/22 22:15 131 18 99/61 (78) 91 Nasal Cannula 3.00 08/22/22 22:00 134 25 101/46 (51) 93 Nasal Cannula 3.00 08/22/22 21:45 93 Nasal Cannula 3.00 08/22/22 21:00 116 94/50 08/22/22 21:00 126 28 89/53 (65) 96 Nasal Cannula 3.00 08/22/22 20:01 124 31 82/66 (71) 91 Nasal Cannula 3.00 08/22/22 20:00 97 Nasal Cannula 3.00 08/22/22 19:36 36.6 Nasal Cannula 3.00 08/22/22 19:20 131 25 96/59 (73) 95 Nasal Cannula 3.00 08/22/22 19:00 117 08/22/22 19:00 117 10 94/58 (64) 95 Nasal Cannula 3.00 08/22/22 18:20 18 94/50 (65) 97 Nasal Cannula 3.00 08/22/22 18:00 116 30 101/62 (74) 97 Nasal Cannula 3.00 08/22/22 17:00 110 18 99/73 (84) 99 Nasal Cannula 3.00 08/22/22 16:00 115 15 89/50 (67) 99 Nasal Cannula 3.00 08/22/22 16:00 96 Nasal Cannula 3.00 08/22/22 15:00 110 21 89/56 (70) 98 Nasal Cannula 3.00 08/22/22 14:18 112 75/48 08/22/22 14:00 105 9 75/48 (59) 97 Nasal Cannula 3.00 08/22/22 13:00 106 11 95/58 (73) 98 Nasal Cannula 3.00 08/22/22 12:35 107 08/22/22 12:00 109 13 93/42 (58) 94 Nasal Cannula 3.00 08/22/22 12:00 97 Nasal Cannula 3.00 08/22/22 11:19 37.1 08/22/22 11:00 113 21 97/50 (56) 93 Nasal Cannula 3.00 08/22/22 10:47 95 Nasal Cannula 4.00 I & O 08/23/22 07:00 Intake Total 3234.5 ml Output Total 600 ml Balance 2634.5 ml Height & Weight Height: 5'4.00" Weight: 193lbs. 3.0oz. 87.057888eq; 32.11 BMI Method: General Appearance: Anxious, Mild Distress, Obese HEENT: PERRL/EOMI; No Scleral Icterus (L), No Scleral Icterus (R) Neck: Non Tender, Supple Respiratory: Chest Non Tender, No Accessory Muscle Use, No Respiratory Dis tress, Crackles (Bilateral lower lobes), Other (On BiPAP) Cardiovascular: No Murmur, Tachycardia Peripheral Pulses: 2+ Radial Pulses (R), 2+ Radial Pulses (L) Gastrointestinal: soft, distended; No guarding; tenderness (Tender to palpation in epigastsric region), other (Incison clean, dry, intact. NG tube in place) Extremity: Calf Tenderness, Pedal Edema (+1 bilaterally), Other (Compression cuffs on lower extremity bilaterally) Neurologic/Psychiatric: Alert, Other (Orientited to person, arouses to name being called) Skin: Normal Color, Diaphoresis Lymphatic: No Adenopathy Other comments PE PER RN Results Lab Laboratory Tests 08/22/22 01:45 08/22/22 14:16 08/22/22 21:45 08/23/22 03:00 Assessment/Plan Assessment/Plan ABOVE Critical Care: Ventilator Management Time spent with patient (mins): 38 ALEK MINOR MD Aug 23, 2022 10:14
--- NOTE | 2022-08-23 10:19 | Cardiology Progress Note ---
Subjective Date Seen by Provider: Aug 23, 2022 Time Seen by Provider: 10:14 Subjective/Events-last exam Patient in bed, currently maintained on BiPAP, NG tube in place. C/o nose pain. Review of Systems General: Fatigue, Malaise Pulmonary: Dyspnea Cardiovascular: No: Chest Pain, Palpitations, Orthopnea, Paroxysmal Noc. Dyspnea, Edema, Lt Headedness, Other Focused Exam Lactate Level 08/23/22 04:50: Lactic Acid Level 2.80*H 08/23/22 06:30: Lactic Acid Level 2.58*H 08/23/22 08:20: Lactic Acid Level 2.78*H Lactic Acid Level Laboratory Tests Test 08/23/22 08:20 Lactic Acid Level 2.78 MMOL/L (0.50-2.00) *H Objective-Cardiology Exam Last Set of Vital Signs Vital Signs 08/23/22 08/23/22 08/23/22 08/23/22 08/23/22 04:00 08:00 09:00 10:16 10:18 Temp 37.1 Pulse 109 Resp 19 B/P (MAP) 113/48 (69) Pulse Ox 94 O2 Delivery Nasal Cannula O2 Flow Rate 2.00 FiO2 30 I&O Intake and Output 08/23/22 00:00 Intake Total 3634.5 ml Output Total 235 ml Balance 3399.5 ml Intake Oral 425 ml IV Total 3209.5 ml Output Urine Total 235 ml General: Alert, Cooperative Lungs: Other (decreased breath sounds) Heart: Normal S1, Normal S2, Other (tachycardic) Abdomen: Other (Distended, diminished bowel sounds, diffuse tenderness) Extremities: No Clubbing, Other (+1-2 edema BLE) Skin: No Rashes, No Significant Lesion Results Lab Laboratory Tests 08/22/22 14:16 08/22/22 21:45 08/23/22 03:00 A/P-Cardiology Admission Diagnosis Septic shock Hypotension Adenocardinoma Assessment/Plan Adenocarinoma of ascending colon, post op Day 6 of partial colon and intraperitoneal mass resection Abdominal pain with abdominal distention, hypotension Discussed with Dr. Aragon, possible laparoscopy to evaluate for any causes for sepsis. Sinus tach and hypotension due toprobable septic shock, maintained on pressors, continue to monitor. No evidence of PE on pulm CT angio of 08/22/22 Hypertension, currently hypotensive, continue to monitor. Nonobstructive carotid artery stenosis per carotid duplex done Jul 2022. Supervisory-Addendum Brief Supervisory Addendum Participated in pt care: history, MDM, physical Personally performed: exam, history, MDM Care discussed with: PIERO Results interpretation: Verified all documentation Notes: Patient was seen and evaluated with Nick, examination performed, management plan was discussed, agree with the current scribed note, I made few changes to the note using Italic font Patient was seen at bedside, lethargic, having significant abdominal pain Diffuse abdominal tenderness on exam with diminished bowel sounds Discussed with Dr. Aragon, due to her deterioration possible laparoscopic evaluation for any other sources of her sepsis Continue with supportive care with pressors and IV fluid Monitor H&H. NICK MONAHAN Aug 23, 2022 10:19 NORMA DIAMOND MD Aug 23, 2022 10:39
[2022-08-23] MEDS ORDERED: LACTATED RINGERS 1,000 ML IV SCH ×2 (10:30→18:30)
[2022-08-23] MEDS ORDERED: ETOMIDATE IV SOLN 20 MG/10 ML VIAL ONE (12:26)
[2022-08-23] MEDS ORDERED: LIDOCAINE PF 2% 5 ML (XYLOCAINE) VIAL ONE (12:28)
[2022-08-23] MEDS ORDERED: ROCURONIUM 50 MG/5 ML (ZEMURON) VIAL IV ONE (12:28)
[2022-08-23] MEDS ORDERED: fentaNYL INJ 100 MCG/2 ML AMP ONE (12:29)
[2022-08-23] MEDS ORDERED: SUCCINYLCHOLINE INJ 20 MG/1 ML 10 ML VIAL ONE (13:43)
[2022-08-23] MEDS ORDERED: ISOFLURANE (FORANE) 15 ML/15 MIN INHALATION ONE (13:51)
--- NOTE | 2022-08-23 14:23 | Progress Note-Post Operative ---
Post-Operative Progess Note Surgeon (s)/Last Remodeler Repairer (s) Surgeon KOURTNEY BHATIA DO Last Remodeler Repairer: Jah Pre-Operative Diagnosis Hypotension, Sepsis Post-Operative Diagnosis Anastomotic leak Procedure & Operative Findings Date of Procedure 08/23/22 Procedure Performed/Findings Diagnostic Laparoscopy, Laparotomy with colon resection Abd washout Anesthesia Type GET Estimated Blood Loss Estimated blood loss (mL): less than 30ml Specimens/Packing Specimens Removed portion of colon, TI KOURTNEY BHATIA DO Aug 23, 2022 14:23
--- NOTE | 2022-08-23 14:27 | Progress Note ---
Subjective Subjective/Events-last exam Pt seen at 1030. She nods and shakes head. When asked if she could speak, she shook her head. She does nod when asked if she has pain, and grabs her abdomen when she coughs. Focused Exam Lactate Level 08/23/22 04:50: Lactic Acid Level 2.80*H 08/23/22 06:30: Lactic Acid Level 2.58*H 08/23/22 08:20: Lactic Acid Level 2.78*H Objective Exam Last Set of Vital Signs Vital Signs Date Time Temp Pulse Resp B/P (MAP) Pulse Ox O2 Delivery O2 Flow Rate FiO2 08/23/22 13:00 121 25 126/54 (78) 96 NIV Bilevel 30.00 08/23/22 12:00 37.6 08/23/22 11:55 30 Capillary Refill : I&O Intake and Output 08/23/22 00:00 Intake Total 3634.5 ml Output Total 235 ml Balance 3399.5 ml Intake Oral 425 ml IV Total 3209.5 ml Output Urine Total 235 ml General: Severe Distress Lungs: Clear to Auscultation Heart: Other (tachycardia) Abdomen: Soft, Other (diffuse ttp) Extremities: Other (1+ pedal edema) Neuro: Other (somnolent, but does nod/shake head when spoken to, laying with eyes closed) Results/Procedures Lab Laboratory Tests 08/22/22 21:45: White Blood Count 17.1H, Red Blood Count 4.65, Hemoglobin 9.8L, Hematocrit 35, Mean Corpuscular Volume 75L, Mean Corpuscular Hemoglobin 21L, Mean Corpuscular Hemoglobin Concent 28L, Red Cell Distribution Width 19.6H, Platelet Count 459H, Mean Platelet Volume 10.6, Immature Granulocyte % (Auto) 1, Neutrophils (%) (Auto) 87H, Lymphocytes (%) (Auto) 6L, Monocytes (%) (Auto) 5, Eosinophils (%) (Auto) 0, Basophils (%) (Auto) 1, Neutrophils # (Auto) 14.9H, Lymphocytes # (Auto) 1.0, Monocytes # (Auto) 0.8, Eosinophils # (Auto) 0.0, Basophils # (Auto) 0.1, Immature Granulocyte # (Auto) 0.2H, Neutrophils % (Manual) 29, Lymphocytes % (Manual) 6, Monocytes % (Manual) 1, Metamyelocytes % 19, Myelocytes % 1, Band Neutrophils 41, Nucleated Red Blood Cells 5, Atypical Lymphocytes 3, Toxic Granulation 2+, Platelet Estimate SLIGHTLY ELEVATED, Hypochromasia MODERATE, Poikilocytosis MODERATE, [place] Cells MODERATE, Elliptocytes SLIGHT, Sodium Level 140, Potassium Level 4.7, Chloride Level 108H, Carbon Dioxide Level 19L, Anion Gap 13, Blood Urea Nitrogen 22H, Creatinine 2.29H, Estimat Glomerular Filtration Rate 21, BUN/Creatinine Ratio 10, Glucose Level 113H, Lactic Acid Level 3.82*H, Calcium Level 8.5, Corrected Calcium 10.0, Total Bilirubin 1.0, Aspartate Amino Transf (AST/SGOT) 16, Alanine Aminotransferase (ALT/SGPT) 15, Alkaline Phosphatase 43, Total Protein 4.5L, Albumin 2.1L, Random Gentamicin Level 8.8 08/22/22 22:40: Venous Blood pH 7.17L, Venous Blood Partial Pressure CO2 61H, Venous Blood HCO3 22 08/23/22 03:00: White Blood Count 19.9H, Red Blood Count 4.00, Hemoglobin 8.7L, Hematocrit 30L, Mean Corpuscular Volume 75L, Mean Corpuscular Hemoglobin 22L, Mean Corpuscular Hemoglobin Concent 29L, Red Cell Distribution Width 19.3H, Platelet Count 417H, Mean Platelet Volume 10.5, Immature Granulocyte % (Auto) 3, Neutrophils (%) (Auto) 87H, Lymphocytes (%) (Auto) 5L, Monocytes (%) (Auto) 5, Eosinophils (%) (Auto) 0, Basophils (%) (Auto) 1, Neutrophils # (Auto) 17.2H, Lymphocytes # (Auto) 0.9L, Monocytes # (Auto) 1.0, Eosinophils # (Auto) 0.0, Basophils # (Auto) 0.1, Immature Granulocyte # (Auto) 0.6H, Sodium Level 137, Potassium Level 4.7, Chloride Level 108H, Carbon Dioxide Level 18L, Anion Gap 11, Blood Urea Nitrogen 23H, Creatinine 2.41H, Estimat Glomerular Filtration Rate 20, BUN/Creatinine Ratio 10, Glucose Level 139H, Lactic Acid Level 3.60*H, Calcium Level 8.3L, Phosphorus Level 5.1H, Magnesium Level 1.5L 08/23/22 04:50: Lactic Acid Level 2.80*H 08/23/22 06:30: Lactic Acid Level 2.58*H 08/23/22 08:20: Lactic Acid Level 2.78*H Microbiology 08/22/22 Blood Culture - Preliminary, Resulted Gram Positive Cocci in Chains 08/18/22 MRSA Screen - Final, Complete MRSA not isolated Assessment/Plan Assessment/Plan (1) S/P colon resection Status: Acute Assessment & Plan: Surgery following, appreciate recommendations. (2) Sepsis Status: Acute Assessment & Plan: Moved to ICU, received IVF boluses, remained hypotensive and started on norepinephrine. Blood cx with gram pos cocci. Continued on clindamycin and gentamicin. Qualifiers: (3) Acute kidney injury Status: Acute Assessment & Plan: Acute on chronic, suspect secondary to sepsis. IVF and n orepi as above as well as treating underlying infection. Monitor closely. (4) Hyperphosphatemia Status: Acute (5) Colon cancer Assessment & Plan: s/p resection as above. (6) GERD (gastroesophageal reflux disease) Status: Chronic (7) Seizure disorder Status: Chronic (8) Hypertension Status: Chronic Assessment & Plan: Currently hypotensive Qualifiers: Qualified Codes: I10 - Essential (primary) hypertension (9) Alzheimer disease Status: Chronic (10) CKD (chronic kidney disease) Status: Chronic Qualifiers: Qualified Codes: N18.31 - Chronic kidney disease, stage 3a (11) Goals of care, counseling/discussion Status: Acute Assessment & Plan: Critically ill, No family at bedside currently, when asked if she would want compressions and intubation, she did shake her head yes. BETTY CASTILLO MD Aug 23, 2022 14:27
[2022-08-23] MEDS ORDERED: VASOPRESSIN (PYXIS DRIP KIT) 20 UNIT/1 ML VIAL IV PRN (14:45)
[2022-08-23] MEDS: PROPOFOL DRIP (ICU) 100 ML IV SCH ×3 (15:00→23:27)
--- NOTE | 2022-08-23 15:17 | Diagnostic Imaging Report ---
INDICATION: Intubation. TECHNIQUE: Single view chest 2:49 PM. CORRELATION STUDY: 08/22/2022 FINDINGS: Endotracheal tube has been placed. Tip is at the level of the clavicles, approximately 5.2 cm above the ai. Nasogastric tube tip passes below the left hemidiaphragm with tip in the body of the stomach. Left-sided central line unchanged, tip at the cavoatrial junction. Heart is enlarged. Mediastinum unremarkable. Vasculature overall within normal limits. Small pleural effusion, minimal atelectasis or infiltrate in both lung bases bases appears increased on the right . IMPRESSION: 1. Bibasilar atelectasis and/or infiltrate along with small effusions adversely changed at the right lung base. Dictated by: Dictated on workstation # [id number]
[2022-08-23 16:22] LABS: ABG BASE EXCESS -4.8 MMOL/L (-2.5-2.5); ABG OXYGEN SATURATION 99 % (94-100); ABG PCO2 41 MMHG (35-45); ABG PO2 133 MMHG (79-93); ABG TCO2 21.7 MMOL/L (21.0-31.0)
[2022-08-23 16:23] LABS: ABG PH 7.32 (7.37-7.43)
[2022-08-23 16:24] LABS: INSPIRED O2 30%; PATIENT TEMP 36.6; VENTILATOR YES
[2022-08-23] MEDS: morphine INJ 4 MG/ML 1 ML (VIAL/SYRINGE) IVP PRN (17:24)
[2022-08-23] MEDS ORDERED: ALBUMIN 25% 25 GM/100 ML 200 ML IV ONE (18:30)
[2022-08-23] MEDS: PRAMIPEXOLE 0.125 MG (MIRAPEX) TABLET PO SCH (20:21)
[2022-08-23] MEDS: DONEPEZIL 10 MG (ARICEPT) TAB PO SCH (20:21)
[2022-08-23] MEDS: ALBUMIN 25% 25 GM/100 ML 100 ML IV SCH (21:36)
--- NOTE | 2022-08-23 22:29 | OPERATIVE REPORT ---
DATE OF SERVICE: 08/23/2022 PREOPERATIVE DIAGNOSES: Hypotension, sepsis, fluid in the abdomen. POSTOPERATIVE DIAGNOSIS: Anastomotic leak. PROCEDURES: 1. Diagnostic laparoscopy with laparotomy and colon resection. 2. Abdominal washout, placement of drains. SURGEON: Cruzito Aragon DO COMMODITY MANAGEMENT SPECIALIST: Monico Tyson DO ANESTHESIA: General endotracheal tube. SPECIMENS: Portion of colon and terminal ileum. ESTIMATED BLOOD LOSS: Less than 30 mL. FLUIDS: Per Anesthesia. POSTOPERATIVE CONDITION: Stable. INDICATIONS FOR PROCEDURE: The patient is a 76-year-old female who had a colon resection on 08/18/2022, has been doing okay, but not really progressing very well and then became hypotensive late Tuesday night. CT showed some fluid, but no free air, no really other obvious source, today tried abdominal compartment pressure appeared to be normal, but elected to take her to the OR to look just to be safe. FINDINGS: The patient had an anastomotic leak right at the crotch of the anastomosis. DESCRIPTION OF PROCEDURE: After informed consent was obtained, the patient was brought to the operating room and placed on the table in supine position. She was sterilely prepped and draped in normal fashion. I started by first taking out the adriana in the upper port incision and then gently inserting the 12-Irish VersaStep port through the previous opening, went in easily, created pneumoperitoneum and then placed the scope. There was a lot of bile-stained liquid, very dilated colon. At this point, then just elected to open, went through the previous midline incision and then opened superiorly and inferiorly found a lot of the feculent liquid, suctioned all of this out and then started copiously irrigating, first started with 2-3 liters of warm normal saline, looked at the transverse colon and anastomosis; it was very distended and then looked it appeared to be at the crotch of the terminal ileum to the transverse colon. There was a small leak coming out with some thick greenish fluid coming out. This was probably the site of the problem. At this point, I elected to resect this, went distal to this about 8-10 cm on the terminal ileum, made a defect in the mesentery with Bovie electrocautery and then we placed a GAYATHRI-75 here. Clamp held for 30 seconds and then transected. From the stretching of the colon was dilated, there was a small serosal tear, elected to go just distal to this, freed the omentum off of this transverse colon and then at the mesentery made a defect with Bovie electrocautery as well as blunt dissection, placed a GAYATHRI-75 across, clamp, held for 30 seconds, then fired thereby resecting this and then came across the mesentery with a LigaSure, clamping, coagulating and transecting. This was then passed off the table, then made a defect in the tinea of the transverse colon, allowed the air to escape and then made another defect with the Bovie electrocautery on the antimesenteric portion of the terminal ileum, placed a small portion of the GAYATHRI in this, the larger portion of the transverse colon brought in together, clamped, held for 30 seconds and then fired, also through a crotch stitch to hold this together and then closed the enterocolotomy with TA stapler. At this point, then irrigated with another 5 liters of warm normal saline until it was almost clear. No other obvious pathology. A drain placed in the right pericolic gutter, placed through the previous right lower quadrant port, made another small stab incision in the left lower quadrant and brought a hemostat through this incision through the skin wall and into the abdomen and then placed another RICCARDO drain down in the pelvis and then up in the left pericolic gutter. Both of these were sutured in place with a 2-0 silk suture. We then dropped the anastomosis back in, it looked good. I tried to free up as much of the fibrinous material as possible. There was no bleeding and then placed the omentum back into the midline and then elected to close this incision closing with #1 double stranded PDS suture running from superior portion to the inferior portion tying to itself, elected to close the upper port site with adriana again and because this was gross contamination, elected to just place a Kerlix with Betadine into the midline incision. Area was cleaned and dried. A drain sponge was placed and were hooked up to bulb suction. Area was cleaned and dried dressing placed and the patient transferred back to ICU in stable condition. Her blood pressure got better as soon as we opened the belly as did breathing a little bit better too. Dr. Tyson assisted in this case helping to make incisions, identify anatomy, hold anatomy out of the way and help with the anastomosis. Job ID: [id number] DocumentID: [id number] Dictated Date: 08/23/2022 14:48:13 High School Director Date: 08/23/2022 22:27:00 Dictated By: DO JERO MCKNIGHT
[2022-08-24] VITALS (9 sets, daily range): BP systolic 112–151; BP diastolic 50–71
[2022-08-24] MEDS ORDERED: LACTATED RINGERS 1,000 ML IV ONE
[2022-08-24] MEDS: NOREPINEPHRINE 8 MG/250 ML 250 ML IV SCH ×6 (00:44→18:49)
[2022-08-24] MEDS: CLINDAMYCIN 900 MG/50 ML IVPB 50 ML IV SCH ×2 (00:44→08:07)
[2022-08-24] MEDS: morphine INJ 4 MG/ML 1 ML (VIAL/SYRINGE) IVP PRN ×3 (02:31→08:35)
[2022-08-24 05:00] LABS: BASOPHILS # (AUTO) 0.1 10^3/uL (0.0-0.1); BASOPHILS % (AUTO) 1 % (0-10); EOSINOPHILS # (AUTO) 0.2 10^3/uL (0.0-0.3); EOSINOPHILS % (AUTO) 2 % (0-10); HEMATOCRIT 22 % (35-52); LYMPHOCYTES # (AUTO) 1.5 10^3/uL (1.0-4.0); LYMPHOCYTES % (AUTO) 11 % (12-44); MEAN CORPUSCULAR HEMOGLOBIN 21 pg (25-34); MEAN CORPUSCULAR HGB CONC 30 g/dL (32-36); MEAN CORPUSCULAR VOLUME 70 fL (80-99); MEAN PLATELET VOLUME 10.7 fL (9.0-12.2); MONOCYTES # (AUTO) 0.5 10^3/uL (0.0-1.0); MONOCYTES % (AUTO) 4 % (0-12); NEUTROPHILS # (AUTO) 11.2 10^3/uL (1.8-7.8); NEUTROPHILS % (AUTO) 83 % (42-75); PLATELET COUNT 299 10^3/uL (130-400); WHITE BLOOD COUNT 13.6 10^3/uL (4.3-11.0)
[2022-08-24 05:04] LABS: ABG OXYGEN SATURATION 98 % (94-100); ABG PCO2 46 MMHG (35-45); ABG PO2 118 MMHG (79-93); ABG TCO2 23.6 MMOL/L (21.0-31.0)
[2022-08-24 05:08] LABS: ABG PH 7.31 (7.37-7.43); ALLENS TEST YES-POS
[2022-08-24 05:09] LABS: INSPIRED O2 40%; PATIENT TEMP 37.4; VENTILATOR YES
[2022-08-24 05:10] LABS: HEMOGLOBIN 6.6 g/dL (11.5-16.0)
[2022-08-24 05:21] LABS: ALBUMIN 2.2 GM/DL (3.2-4.5); BILIRUBIN,TOTAL 1.2 MG/DL (0.1-1.0); CALCIUM 8.1 MG/DL (8.5-10.1); CREATININE SERUM 3.14 MG/DL (0.60-1.30); POTASSIUM 3.8 MMOL/L (3.6-5.0); TOTAL PROTEIN 3.9 GM/DL (6.4-8.2)
[2022-08-24] MEDS: inSUlin ASPART (NovoLOG) 1 UNIT/0.01 ML (CHARGE PER UNIT) SC SCH ×3 (05:29→18:02)
[2022-08-24] MEDS: KCL 20 MEQ TAB (K-DUR) PO SCH (05:38)
[2022-08-24] MEDS: ACETAMINOPHEN 500 MG TAB (TYLENOL) PO SCH ×3 (05:38→23:22)
[2022-08-24] MEDS: MAGNESIUM 1 GM/100 ML IVPB 100 ML IV SCH (05:38)
[2022-08-24] MEDS: POTASSIUM CL 10MEQ/50ML IVPB 50 ML IV SCH (05:38)
[2022-08-24] MEDS ORDERED: NS IV 500 ML 500 ML IV SCH (05:45)
[2022-08-24] MEDS: ALBUMIN 25% 25 GM/100 ML 100 ML IV SCH ×3 (05:48→17:54)
[2022-08-24] MEDS: LACTATED RINGERS 1,000 ML IV SCH ×3 (05:51→17:54)
[2022-08-24] MEDS: PROPOFOL DRIP (ICU) 100 ML IV SCH ×4 (06:34→20:54)
--- NOTE | 2022-08-24 06:46 | Diagnostic Imaging Report ---
INDICATION: Respiratory failure Portable chest 4:12 AM There is ET tube projects over the trachea. NG tube enters the stomach. Left IJ central line tip projects over the SVC. There is some volume loss at both lung bases. Pulmonary vascularity is upper limits of normal. Heart does not appear enlarged. IMPRESSION: Basilar atelectasis. There is shallow lung volumes compared to previous day, which accentuates the bronchovascular lung markings. Dictated by: Dictated on workstation # [id number]
[2022-08-24] MEDS: RT-ALBUTEROL SULF 2.5 MG/3 ML PRE-MIX VIAL INH SCH ×2 (07:00→21:28)
--- NOTE | 2022-08-24 07:27 | Physical Therapy Progress Note ---
Therapy Progress Note Patient transferred to ICU due to decline in status. PT will require new orders. BRIGETTE FRANCISCO PT Aug 24, 2022 07:27
[2022-08-24] MEDS: levETIRAcetam 1000 mg/NS 100ml IVPB IV SCH ×2 (08:06→20:55)
[2022-08-24] MEDS: PANTOPRAZOLE 40 MG (PROTONIX) VIAL IVP SCH (08:06)
--- NOTE | 2022-08-24 08:31 | Cardiology Progress Note ---
Subjective Date Seen by Provider: Aug 24, 2022 Time Seen by Provider: 08:28 Subjective/Events-last exam Patient was seen at bedside, laying down comfortably Sedated and intubated Review of Systems General: Other (Unable to provide review of system) Focused Exam Lactate Level 08/23/22 04:50: Lactic Acid Level 2.80*H 08/23/22 06:30: Lactic Acid Level 2.58*H 08/23/22 08:20: Lactic Acid Level 2.78*H Objective-Cardiology Exam Last Set of Vital Signs Vital Signs 08/24/22 08/24/22 06:00 07:50 Temp 37.6 Pulse 137 Resp 16 B/P (MAP) 118/51 Pulse Ox 95 O2 Delivery Mechanical Ventilator O2 Flow Rate 40.00 FiO2 40 I&O Intake and Output 08/24/22 00:00 Intake Total 4600 ml Output Total 1440 ml Balance 3160 ml Intake Oral 0 ml IV Total 4600 ml Output Urine Total 260 ml Oral Regurgitation 350 ml Drainage Total 780 ml Estimated Blood Loss 50 ml General: Other (Sedated and intubated) Lungs: Clear to Auscultation Heart: Other (tachycardia) Abdomen: Soft, Other (Absent bowel sounds) Extremities: Other (1+ pedal edema) Skin: No Rashes, No Significant Lesion Neuro: Other (Sedated and intubated) Psych/Mental Status: Other (Sedated and intubated) Results Lab Laboratory Tests 08/24/22 04:50 A/P-Cardiology Admission Diagnosis Septic shock Hypotension Adenocardinoma Assessment/Plan Adenocarinoma of ascending colon, post op Day 6 of partial colon and intraperitoneal mass resection Status post acute abdomen on August 23, 2022 underwent exploratory laparotomy, anastomosis leak was noted Currently having a drain, managed by surgical team Septic shock, hypotensive, tachycardic, respiratory failure Receiving IV fluid Receiving Levophed Continue with supportive care Ventilator dependent respiratory failure, sedated and intubated Managed by medical team Sinus tachycardia secondary to sepsis Continue with supportive care History of hypertension Currently hypotensive, maintained on IV fluid and Levophed Continue to monitor Nonobstructive carotid artery stenosis per carotid duplex done Jul 2022. NORMA DIAMOND MD Aug 24, 2022 08:31
--- NOTE | 2022-08-24 08:33 | Progress Note - Surgery ---
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 She is being followed for sepsis and hemodynamic instability necessitating mechanical ventilation as well as anemia, RA, and postoperative dementia. At the time of this encounter, she is intubated and sedated. Focused Exam Sepsis Stage: Sepsis Lactate Level 08/23/22 04:50: Lactic Acid Level 2.80*H 08/23/22 06:30: Lactic Acid Level 2.58*H 08/23/22 08:20: Lactic Acid Level 2.78*H Objective Exam Vital Signs Date Time Temp Pulse Resp B/P (MAP) Pulse Ox O2 Delivery O2 Flow Rate FiO2 08/24/22 07:50 37.6 137 16 118/51 95 Mechanical Ventilator 40 08/24/22 07:32 37.4 130 18 132/61 99 Mechanical Ventilator 40 08/24/22 07:06 124 08/24/22 07:00 123 18 100 40 08/24/22 06:35 122 116/60 08/24/22 06:34 113 119/59 08/24/22 06:33 113 119/59 08/24/22 06:00 113 16 119/59 (77) 100 Mechanical Ventilator 40.00 08/24/22 05:00 113 16 118/52 (76) 100 Mechanical Ventilator 40.00 08/24/22 04:00 100 Mechanical Ventilator 40 08/24/22 04:00 112 16 100 Mechanical Ventilator 40.00 08/24/22 03:55 112 122/83 08/24/22 03:27 112 122/83 08/24/22 03:00 113 16 100 Mechanical Ventilator 40.00 08/24/22 02:38 112 122/83 08/24/22 02:26 109 16 100 40 08/24/22 02:00 111 16 100 Mechanical Ventilator 40.00 08/24/22 01:00 109 16 100 Mechanical Ventilator 40.00 08/24/22 01:00 109 08/24/22 00:54 37.4 Mechanical Ventilator 40.00 08/24/22 00:44 113 146/47 08/24/22 00:00 109 16 100 Mechanical Ventilator 45.00 08/23/22 23:59 100 Mechanical Ventilator 45 08/23/22 23:27 113 146/47 08/23/22 23:26 112 121/65 08/23/22 23:00 117 16 100 Mechanical Ventilator 45.00 08/23/22 22:47 Mechanical Ventilator 45.00 08/23/22 22:05 113 146/47 08/23/22 22:00 112 16 100 Mechanical Ventilator 50.00 08/23/22 21:33 105 137/64 08/23/22 21:23 105 16 100 60 08/23/22 21:00 103 16 100 Mechanical Ventilator 50.00 08/23/22 20:46 103 106/58 08/23/22 20:26 Mechanical Ventilator 50.00 08/23/22 20:19 102 131/52 08/23/22 20:00 100 Mechanical Ventilator 60 08/23/22 20:00 99 16 100 Mechanical Ventilator 60.00 08/23/22 19:44 98 142/52 08/23/22 19:12 36.9 08/23/22 19:11 98 151/61 08/23/22 19:00 96 08/23/22 19:00 96 16 128/54 (78) 100 Mechanical Ventilator 60.00 08/23/22 18:47 98 104/56 08/23/22 18:46 99 16 100 60 08/23/22 18:00 98 15 104/56 (72) 100 Mechanical Ventilator 60.00 08/23/22 17:00 104 16 107/61 (76) 100 Mechanical Ventilator 60.00 08/23/22 16:38 100 Mechanical Ventilator 60 08/23/22 16:00 108 15 92/53 (66) 100 Mechanical Ventilator 60.00 08/23/22 15:59 105 76/41 08/23/22 15:00 105 114/47 08/23/22 15:00 109 15 92/57 (69) 100 Mechanical Ventilator 60.00 08/23/22 14:45 36.5 15 90/52 (65) 97 Mechanical Ventilator 08/23/22 14:45 109 16 83/50 (61) 98 Mechanical Ventilator 60.00 08/23/22 14:45 Mechanical Ventilator 08/23/22 14:32 Mechanical Ventilator 08/23/22 14:32 36.5 20 87/39 (55) 98 Mechanical Ventilator 2/27/23 14:32 115 16 98 60 2/27/23 14:30 115 90/52 (65) Mechanical Ventilator 60.00 08/23/22 13:00 121 25 126/54 (78) 96 NIV Bilevel 30.00 08/23/22 12:24 122 82/45 08/23/22 12:22 115 08/23/22 12:00 117 16 97/44 (61) 96 NIV Bilevel 30.00 08/23/22 12:00 37.6 08/23/22 11:59 NIV Bilevel 30.00 08/23/22 11:55 97 NIV Bilevel 30 08/23/22 11:51 126 22 95 30.00 08/23/22 11:00 124 17 103/45 (64) 95 NIV Bilevel 30.00 08/23/22 10:18 94 Nasal Cannula 2.00 08/23/22 10:16 109 19 96 30.00 08/23/22 10:00 114 36 102/49 (66) 98 NIV Bilevel 30.00 08/23/22 09:00 116 14 113/48 (69) 93 NIV Bilevel 30.00 I & O 08/24/22 07:00 Intake Total 6500 ml Output Total 1355 ml Balance 5145 ml Capillary Refill : Less Than 3 Seconds General Appearance: Chronically ill, Other (intubated and sedated) HEENT: Pharynx Normal, Moist Mucous Membranes Neck: Non Tender, Supple Respiratory: No Accessory Muscle Use, Crackles (Bilateral lower lobes), Other (on mechanical ventilation) Cardiovascular: No Murmur, Tachycardia Peripheral Pulses: 2+ Radial Pulses (R), 2+ Radial Pulses (L) Gastrointestinal: soft, abnormal bowel sounds, distended (mildly) Extremity: Pedal Edema (marked, bilateral ), Other (Compression cuffs on lower extremity bilaterally) Neurologic/Psychiatric: Other (intubated and sedated currently) Skin: Normal Color, Diaphoresis Lymphatic: No Adenopathy Results Lab Laboratory Tests 08/23/22 16:14: Blood Gas Puncture Site LEFT RADIAL, Blood Gas Patient Temperature 36.6, Arterial Blood pH 7.32*L, Arterial Blood Partial Pressure CO2 41, Arterial Blood Partial Pressure O2 133H, Arterial Blood HCO3 20L, Arterial Blood Total CO2 21.7, Arterial Blood Oxygen Saturation 99, Arterial Blood Base Excess -4.8L, Aiden Test NA, Blood Gas Ventilator Setting YES, Blood Gas Inspired Oxygen 30% 08/24/22 04:46: Blood Gas Puncture Site LT RADIAL, Blood Gas Patient Temperature 37.4, Arterial Blood pH 7.31*L, Arterial Blood Partial Pressure CO2 46H, Arterial Blood Partial Pressure O2 118H, Arterial Blood HCO3 22L, Arterial Blood Total CO2 23.6, Arterial Blood Oxygen Saturation 98, Arterial Blood Base Excess -3.0L, Aiden Test YES-POS, Blood Gas Ventilator Setting YES, Blood Gas Inspired Oxygen 40% 08/24/22 04:50: White Blood Count 13.6H, Red Blood Count 3.13L, Hemoglobin 6.6#*L, Hematocrit 22L, Mean Corpuscular Volume 70L, Mean Corpuscular Hemoglobin 21L, Mean Corpuscular Hemoglobin Concent 30L, Red Cell Distribution Width 18.7H, Platelet Count 299, Mean Platelet Volume 10.7, Immature Granulocyte % (Auto) 1, Neutrophils (%) (Auto) 83H, Lymphocytes (%) (Auto) 11L, Monocytes (%) (Auto) 4, Eosinophils (%) (Auto) 2, Basophils (%) (Auto) 1, Neutrophils # (Auto) 11.2H, Lymphocytes # (Auto) 1.5, Monocytes # (Auto) 0.5, Eosinophils # (Auto) 0.2, Basophils # (Auto) 0.1, Immature Granulocyte # (Auto) 0.1, Sodium Level 132L, Potassium Level 3.8, Chloride Level 103, Carbon Dioxide Level 20L, Anion Gap 9, Blood Urea Nitrogen 29H, Creatinine 3.14#H, Estimat Glomerular Filtration Rate 15, BUN/Creatinine Ratio 9, Glucose Level 109H, Calcium Level 8.1L, Corrected Calcium 9.5, Phosphorus Level 3.0, Magnesium Level 2.0, Total Bilirubin 1.2H, Aspartate Amino Transf (AST/SGOT) 16, Alanine Aminotransferase (ALT/SGPT) 11, Alkaline Phosphatase 44, Total Protein 3.9L, Albumin 2.2L Microbiology 08/23/22 Gram Stain, Resulted Pending 08/23/22 Sputum Culture - Preliminary, Resulted Oxidase Pos Gram Negative Jon 08/22/22 Blood Culture - Preliminary, Resulted Streptococcus viridans 08/22/22 Urine Culture - Final, Complete NO GROWTH Assessment/Plan Assessment/Plan Assessment/Plan Sepsis/Hypotension/Metabolic acidosis - streptococcus viridins isolated in blood culture (2/27) - normotensive as of 08/24; pressors discontinued - continue IV fluids - continue gentamicin and clindamycin Acute kidney injury - likely related to sepsis - Cr 3.14 on 08/24 up from 2.42 on 08/23 Anemia - Hb 6.6 on 08/24; currently receiving 1 unit - monitor and transfuse as needed S/P colon resection - adenocarcinoma of ascending colon - right hemicolectomy on 08/18 - colon resection on 08/23 - continue soft diet KOURTNEY ARAGON DO 08/24/22 1438: Subjective Time Seen by a Provider: 11:12 Subjective/Events-last exam Pt seen and examined, sedated and intubated. Review of Systems unable to obtain, pt intubated Objective Exam General Appearance: Chronically ill, Other (intubated and sedated) HEENT: Other (ET and NGT in place) Respiratory: Crackles (Bilateral lower lobes), Other (on mechanical ventilation) Cardiovascular: No Murmur, Tachycardia Gastrointestinal: soft, abnormal bowel sounds, distended (mildly), other (incision still packed with Betadine soaked kerlix, drain sites look fine and bulb suction with serous fluid only) Extremity: Pedal Edema (marked, bilateral ), Other (Compression cuffs on lower extremity bilaterally) Neurologic/Psychiatric: Other (intubated and sedated currently) Skin: Pallor Assessment/Plan Assessment/Plan Assessment/Plan Sepsis/Hypotension/Metabolic acidosis - due to anastomotic Leak - streptococcus viridins isolated in blood culture (08/23) - normotensive as of 08/24 still on pressors - continue IV fluids - continue gentamicin and clindamycin Acute kidney injury - likely related to sepsis - Cr 3.14 on 08/24 up from 2.42 on 08/23 Anemia - Hb 6.6 on 08/24; received 1 unit - monitor and transfuse as needed S/P colon resection - adenocarcinoma of ascending colon - right hemicolectomy on 08/18 - repeat colon resection on 08/23 Pt is fluid overloaded now, this usually takes about 3 days after surgery for pt to diurese; may take longer if renal function doesn't come back. Hopefully the RA is only due to sepsis and now that the problem has been fixed they will get better. Wean from vent as tolerated. Supervisory-Addendum Brief Verification & Attestation Participated in pt care: history, MDM, physical Personally performed: exam, history, MDM, supervision of care Care discussed with: Medical Student Procedures: n/a Verification and Attestation of Medical Student E/M Service A medical student performed and documented this service. I then reviewed and verified all information documented by the medical student and made modifications to such information, when appropriate. I personally performed a physical exam, medical decision making and then discussed any differences between the notes and made revisions as necessary to create one note. Kourtney Aragon , 08/24/22 , 14:38 DARRON HIGGINS Aug 24, 2022 08:33 KOURTNEY ARAGON DO Aug 24, 2022 14:38
[2022-08-24] MEDS: VITAMIN D3 25 MCG (1,000 UNITS) TABLET PO SCH (08:38)
[2022-08-24] MEDS: lisINopril 20 MG (PRINIVIL) TABLET PO SCH (08:38)
[2022-08-24] MEDS: OXYBUTYNIN (DITROPAN) 5 MG TAB PO SCH ×2 (08:38→20:44)
[2022-08-24] MEDS: risperiDONE 0.5 MG (RisperDAL) TABLET PO SCH ×2 (08:38→20:44)
--- NOTE | 2022-08-24 08:45 | Progress Note ---
Subjective Subjective/Events-last exam Went back to OR yesterday, anastomotic leak repaired. This morning she is still on the mechanical ventilator, significantly tachycardic, creatinine continues to worsen and urine output has decreased. Focused Exam Lactate Level 08/23/22 04:50: Lactic Acid Level 2.80*H 08/23/22 06:30: Lactic Acid Level 2.58*H 08/23/22 08:20: Lactic Acid Level 2.78*H Objective Exam Last Set of Vital Signs Vital Signs Date Time Temp Pulse Resp B/P (MAP) Pulse Ox O2 Delivery O2 Flow Rate FiO2 08/24/22 08:00 130 17 117/56 (76) 99 Mechanical Ventilator 40.00 08/24/22 07:50 37.6 40 Capillary Refill : Less Than 3 Seconds I&O Intake and Output 08/24/22 00:00 Intake Total 4600 ml Output Total 1440 ml Balance 3160 ml Intake Oral 0 ml IV Total 4600 ml Output Urine Total 260 ml Oral Regurgitation 350 ml Drainage Total 780 ml Estimated Blood Loss 50 ml General: Other (intubated) Lungs: Other (ronchi) Heart: Other (tachycardic) Abdomen: Normal Bowel Sounds, Other (distended but relatively soft, drain in place, dressing in place) Extremities: Other (2+ pitting edema) Results/Procedures Lab Laboratory Tests 08/23/22 16:14: Blood Gas Puncture Site LEFT RADIAL, Blood Gas Patient Temperature 36.6, Arterial Blood pH 7.32*L, Arterial Blood Partial Pressure CO2 41, Arterial Blood Partial Pressure O2 133H, Arterial Blood HCO3 20L, Arterial Blood Total CO2 21.7, Arterial Blood Oxygen Saturation 99, Arterial Blood Base Excess -4.8L, Aiden Test NA, Blood Gas Ventilator Setting YES, Blood Gas Inspired Oxygen 30% 08/24/22 04:46: Blood Gas Puncture Site LT RADIAL, Blood Gas Patient Temperature 37.4, Arterial Blood pH 7.31*L, Arterial Blood Partial Pressure CO2 46H, Arterial Blood Partial Pressure O2 118H, Arterial Blood HCO3 22L, Arterial Blood Total CO2 23.6, Arterial Blood Oxygen Saturation 98, Arterial Blood Base Excess -3.0L, Aiden Test YES-POS, Blood Gas Ventilator Setting YES, Blood Gas Inspired Oxygen 40% 08/24/22 04:50: White Blood Count 13.6H, Red Blood Count 3.13L, Hemoglobin 6.6#*L, Hematocrit 22L, Mean Corpuscular Volume 70L, Mean Corpuscular Hemoglobin 21L, Mean Corpusc ular Hemoglobin Concent 30L, Red Cell Distribution Width 18.7H, Platelet Count 299, Mean Platelet Volume 10.7, Immature Granulocyte % (Auto) 1, Neutrophils (%) (Auto) 83H, Lymphocytes (%) (Auto) 11L, Monocytes (%) (Auto) 4, Eosinophils (%) (Auto) 2, Basophils (%) (Auto) 1, Neutrophils # (Auto) 11.2H, Lymphocytes # (Auto) 1.5, Monocytes # (Auto) 0.5, Eosinophils # (Auto) 0.2, Basophils # (Auto) 0.1, Immature Granulocyte # (Auto) 0.1, Sodium Level 132L, Potassium Level 3.8, Chloride Level 103, Carbon Dioxide Level 20L, Anion Gap 9, Blood Urea Nitrogen 29H, Creatinine 3.14#H, Estimat Glomerular Filtration Rate 15, BUN/Creatinine Ratio 9, Glucose Level 109H, Calcium Level 8.1L, Corrected Calcium 9.5, Phosphorus Level 3.0, Magnesium Level 2.0, Total Bilirubin 1.2H, Aspartate Amino Transf (AST/SGOT) 16, Alanine Aminotransferase (ALT/SGPT) 11, Alkaline Phosphatase 44, Total Protein 3.9L, Albumin 2.2L Microbiology 08/23/22 Gram Stain, Resulted Pending 08/23/22 Sputum Culture - Preliminary, Resulted Oxidase Pos Gram Negative Jon 08/22/22 Blood Culture - Preliminary, Resulted Streptococcus viridans 08/22/22 Urine Culture - Final, Complete NO GROWTH Assessment/Plan Assessment/Plan (1) S/P colon resection Status: Acute Assessment & Plan: Surgery following, appreciate recommendations. To OR for anastomotic leak repair on 08/23 (2) Sepsis Status: Acute Assessment & Plan: Moved to ICU, received IVF boluses, remained hypotensive and started on norepinephrine. Blood cx with gram pos cocci. Continued on clindamycin and gentamicin. 08/24- worsening in spite of surgical repair, change antibiotics to meropnem to avoid nephrotoxicity. Remaining tachycardic and hypotensive, now with decreasing urine output as well. Albumin ordered per [facility], appreciate recommendations. Qualifiers: (3) Acute kidney injury Status: Acute Assessment & Plan: Acute on chronic, suspect secondary to sepsis. IVF and norepi as above as well as treating underlying infection. Monitor closely. 08/24- worsening, but as of yet potassium remains normal. Treating infection with antibiotic change as above, continue IVF and norepinephrine. (4) Hyperphosphatemia Status: Acute Assessment & Plan: 08/24 normal today (5) Colon cancer Assessment & Plan: s/p resection as above. (6) GERD (gastroesophageal reflux disease) Status: Chronic (7) Seizure disorder Status: Chronic (8) Hypertension Status: Chronic Assessment & Plan: Currently hypotensive Qualifiers: Qualified Codes: I10 - Essential (primary) hypertension (9) Alzheimer disease Status: Chronic (10) CKD (chronic kidney disease) Status: Chronic Qualifiers: Qualified Codes: N18.31 - Chronic kidney disease, stage 3a (11) Goals of care, counseling/discussion Status: Acute Assessment & Plan: 08/23 Critically ill, No family at bedside currently, when asked if she would want compressions and intubation, she did shake her head yes. 08/24 updated granddaughter/DPOA by phone this morning BETTY CASTILLO MD Aug 24, 2022 08:45
[2022-08-24] MEDS ORDERED: NS IV SCH (09:00)
[2022-08-24] MEDS ORDERED: GENTAMICIN IV SCH (09:00)
--- NOTE | 2022-08-24 09:17 | Anesthesia-General Post-Op ---
General Patient Condition Mental Status/LOC: Same as Preop Cardiovascular: Satisfactory Nausea/Vomiting: Absent Respiratory: Unsatisfactory (remains on ventilator) Pain: Controlled Complications: Absent Post Op Complications Complications None Follow Up Care/Instructions Patient Instructions None needed. Anesthesia/Patient Condition Patient Condition Patient remains intubated, stable vital signs, no apparent adverse anesthesia problems. RACHEL Vail reported high BUN/Creatinine. Will be available for further consultation. JOYCELYN METZGER CRNA Aug 24, 2022 09:17
[2022-08-24] MEDS ORDERED: ENOXAPARIN INJECTION 30 MG/0.3 ML SYR SC SCH (10:30)
[2022-08-24] MEDS: VASOPRESSIN INJECTION 20 UNIT in NS (IVPB) 100 ML IV SCH ×2 (10:44→19:20)
[2022-08-24] MEDS: MEROPENEM 500 MG/NS 100 ML IVPB IV SCH ×4 (10:50→22:53)
--- NOTE | 2022-08-24 11:30 | Tele-ICU Progress Note ---
Subjective Date Seen by a Provider: Aug 24, 2022 Time Seen by a Provider: 11:30 Subjective/Events-last exam (Tele-ICU Physician , Progress Note ) Service provided via interactive audio and video telecommunications E-CARE system to a patient admitted to ICU bed in [facility]. Patient is seen today due to persistent need of ICU care Available chart/ vitals / labs / Images reviewed Video assessment done using teleICU camera, rest of exam as per RN Discussed with RN Events overnight : febrile hemodynamically stable Respiratory - 40 % I/O = pos VENT SETTINGS and ABG reviewed NOT CANDIDATE for SBTreviewed possible contraindications including Cardiovascular Stability /Sedation Score / FI02/PEEP / ABG / CXR/ secretions Sedation, discussed with RN, RASS on propofol 25 , morphine prn Drips: LR 150 Pressors- levo 0.47 Hospital course: (08/18) 76F s/p Lap R hemicolectomy and excision of intraperitoneal mass. (08/22) to ICU with hypotension, tachycardia, and increased pain, r/o Intra- abdominal process - ?Anastomosis leak. CTA = Neg P Embolus. CT A/P = ?Asp PN A. (08/23) OR-Diagnostic Laparoscopy, laparotomy with colon resection and washout INTUBATED A/P Acute hypoxic respiratory failure secondary to possible underlying sepsis, pneumonia and bibasilar atelectasis- INTUBATED 08/20 - AC 40 % . increase rr to 22 with acidosis Shock -?secondary to possible sepsis -LEVO 0.47 adding vaso 08/24 Sepsis -clindamycin and gentamicin 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 - as per sx RA - worsenig Cr to 3 on 08/24 - follow with hydration , albumin , transfusion Anemia - hb 6.6 - tramsfusion 1 u PRBC 08/24 (Perioperative anemia hb 9 - no obvious bleeding - follow Lines : L IJ 08/22 (Central Line Necessity Reviewed) Phillips: + OG: Nutrition: npo - as per SX Analgesia: Anxiety/ delirium VTE Prophylaxis: heparin sq if no active bleeding Stress Ulcer Prophylaxis: ppi Plans in collaboration with bedside consultants and IM MDs. Discussed with RN to reach out if any questions or concerns A total of 35 minutes of critical care time was devoted to this patient today, required to treat and/or prevent further deterioration of critical care condition ( as above ) . I am remotely monitoring this patient from another state. I am unable to do the bedside exam, and history/physical and pertinent information is taken from other notes in the computer and bedside staff. Sepsis Event Evaluation Height, Weight, BMI Height: 5'4.00" Weight: 193lbs. 3.0oz. [id number]; 32.11 BMI Method: Focused Exam Lactate Level 08/23/22 04:50: Lactic Acid Level 2.80*H 08/23/22 06:30: Lactic Acid Level 2.58*H 08/23/22 08:20: Lactic Acid Level 2.78*H Exam Exam Patient acknowledged, consented, and participated in this virtual visit which was conducted using real time audio/video Vital Signs Date Time Temp Pulse Resp B/P (MAP) Pulse Ox O2 Delivery O2 Flow Rate FiO2 08/24/22 11:24 124 151/71 08/24/22 11:00 131 30 137/60 (85) 97 Mechanical Ventilator 40.00 08/24/22 10:56 124 22 98 40 08/24/22 10:50 123 80/58 08/24/22 10:44 123 80/58 08/24/22 10:31 125 80/58 08/24/22 10:07 37.7 129 20 135/68 98 Mechanical Ventilator 40 08/24/22 10:00 131 22 135/68 (90) 100 Mechanical Ventilator 40.00 08/24/22 09:00 137 17 145/62 (89) 99 Mechanical Ventilator 40.00 08/24/22 08:00 130 17 117/56 (76) 99 Mechanical Ventilator 40.00 08/24/22 07:50 37.6 137 16 118/51 95 Mechanical Ventilator 40 08/24/22 07:32 37.4 130 18 132/61 99 Mechanical Ventilator 40 08/24/22 07:06 124 08/24/22 07:00 123 18 100 40 08/24/22 07:00 122 17 112/50 (70) 100 Mechanical Ventilator 40.00 08/24/22 06:35 122 116/60 08/24/22 06:34 113 119/59 08/24/22 06:33 113 119/59 08/24/22 06:00 113 16 119/59 (77) 100 Mechanical Ventilator 40.00 08/24/22 05:00 113 16 118/52 (76) 100 Mechanical Ventilator 40.00 08/24/22 04:00 100 Mechanical Ventilator 40 08/24/22 04:00 112 16 100 Mechanical Ventilator 40.00 08/24/22 03:55 112 122/83 08/24/22 03:27 112 122/83 08/24/22 03:00 113 16 100 Mechanical Ventilator 40.00 08/24/22 02:38 112 122/83 08/24/22 02:26 109 16 100 40 08/24/22 02:00 111 16 100 Mechanical Ventilator 40.00 08/24/22 01:00 109 16 100 Mechanical Ventilator 40.00 08/24/22 01:00 109 08/24/22 00:54 37.4 Mechanical Ventilator 40.00 08/24/22 00:44 113 146/47 08/24/22 00:00 109 16 100 Mechanical Ventilator 45.00 08/23/22 23:59 100 Mechanical Ventilator 45 08/23/22 23:27 113 146/47 08/23/22 23:26 112 121/65 08/23/22 23:00 117 16 100 Mechanical Ventilator 45.00 08/23/22 22:47 Mechanical Ventilator 45.00 08/23/22 22:05 113 146/47 08/23/22 22:00 112 16 100 Mechanical Ventilator 50.00 08/23/22 21:33 105 137/64 08/23/22 21:23 105 16 100 60 08/23/22 21:00 103 16 100 Mechanical Ventilator 50.00 08/23/22 20:46 103 106/58 08/23/22 20:26 Mechanical Ventilator 50.00 08/23/22 20:19 102 131/52 08/23/22 20:00 100 Mechanical Ventilator 60 08/23/22 20:00 99 16 100 Mechanical Ventilator 60.00 08/23/22 19:44 98 142/52 08/23/22 19:12 36.9 08/23/22 19:11 98 151/61 08/23/22 19:00 96 08/23/22 19:00 96 16 128/54 (78) 100 Mechanical Ventilator 60.00 08/23/22 18:47 98 104/56 08/23/22 18:46 99 16 100 60 08/23/22 18:00 98 15 104/56 (72) 100 Mechanical Ventilator 60.00 08/23/22 17:00 104 16 107/61 (76) 100 Mechanical Ventilator 60.00 08/23/22 16:38 100 Mechanical Ventilator 60 08/23/22 16:00 108 15 92/53 (66) 100 Mechanical Ventilator 60.00 08/23/22 15:59 105 76/41 08/23/22 15:00 105 114/47 08/23/22 15:00 109 15 92/57 (69) 100 Mechanical Ventilator 60.00 08/23/22 14:45 36.5 15 90/52 (65) 97 Mechanical Ventilator 08/23/22 14:45 109 16 83/50 (61) 98 Mechanical Ventilator 60.00 08/23/22 14:45 Mechanical Ventilator 08/23/22 14:32 Mechanical Ventilator 08/23/22 14:32 36.5 20 87/39 (55) 98 Mechanical Ventilator 08/23/22 14:32 115 16 98 60 08/23/22 14:30 115 90/52 (65) Mechanical Ventilator 60.00 08/23/22 13:00 121 25 126/54 (78) 96 NIV Bilevel 30.00 08/23/22 12:24 122 82/45 08/23/22 12:22 115 08/23/22 12:00 117 16 97/44 (61) 96 NIV Bilevel 30.00 08/23/22 12:00 37.6 08/23/22 11:59 NIV Bilevel 30.00 08/23/22 11:55 97 NIV Bilevel 30 08/23/22 11:51 126 22 95 30.00 I & O 08/24/22 07:00 Intake Total 6500 ml Output Total 1355 ml Balance 5145 ml Height & Weight Height: 5'4.00" Weight: 193lbs. 3.0oz. 87.415213oq; 32.11 BMI Method: General Appearance: Chronically ill, Other (intubated and sedated) HEENT: Pharynx Normal, Moist Mucous Membranes Neck: Non Tender, Supple Respiratory: No Accessory Muscle Use, Crackles (Bilateral lower lobes), Other (on mechanical ventilation) Cardiovascular: No Murmur, Tachycardia Capillary Refill: Less Than 3 Seconds Peripheral Pulses: 2+ Radial Pulses (R), 2+ Radial Pulses (L) Gastrointestinal: soft, abnormal bowel sounds, distended (mildly) Extremity: Pedal Edema (marked, bilateral ), Other (Compression cuffs on lower extremity bilaterally) Neurologic/Psychiatric: Other (intubated and sedated currently) Skin: Normal Color, Diaphoresis Lymphatic: No Adenopathy Results Lab Laboratory Tests 08/22/22 14:16 08/22/22 21:45 08/23/22 03:00 08/24/22 04:50 Assessment/Plan Assessment/Plan 1 WALI HOGAN MD Aug 24, 2022 11:30
[2022-08-24 12:06] LABS: HEMOGLOBIN 7.3 g/dL (11.5-16.0)
[2022-08-24] MEDS: APAP 325 MG/10.15 ML LIQ (TYLENOL) UDC NG PRN (12:06)
[2022-08-24] MEDS ORDERED: APAP 325 MG/10.15 ML LIQ (TYLENOL) UDC PO PRN (12:15)
[2022-08-24 16:55] LABS: BASOPHILS # (AUTO) 0.1 10^3/uL (0.0-0.1); BASOPHILS % (AUTO) 1 % (0-10); EOSINOPHILS # (AUTO) 0.4 10^3/uL (0.0-0.3); EOSINOPHILS % (AUTO) 2 % (0-10); HEMATOCRIT 22 % (35-52); LYMPHOCYTES # (AUTO) 1.2 10^3/uL (1.0-4.0); LYMPHOCYTES % (AUTO) 6 % (12-44); MEAN CORPUSCULAR HEMOGLOBIN 23 pg (25-34); MEAN CORPUSCULAR HGB CONC 32 g/dL (32-36); MEAN CORPUSCULAR VOLUME 71 fL (80-99); MEAN PLATELET VOLUME 9.8 fL (9.0-12.2); MONOCYTES # (AUTO) 0.6 10^3/uL (0.0-1.0); MONOCYTES % (AUTO) 3 % (0-12); NEUTROPHILS % (AUTO) 88 % (42-75); PLATELET COUNT 224 10^3/uL (130-400); WHITE BLOOD COUNT 20.5 10^3/uL (4.3-11.0)
[2022-08-24 17:20] LABS: POTASSIUM 3.9 MMOL/L (3.6-5.0)
[2022-08-24 17:25] LABS: CREATININE SERUM 3.39 MG/DL (0.60-1.30)
--- NOTE | 2022-08-24 17:56 | Tele-ICU Progress Note ---
Progress Note almost anuric - UO last 8 h only 90 cc ( as per RN , abd is not ditendenet , + soft - do not suspect high intraabd pressure on Fio2 40 % , but exam is worse as per RN CVP 12 cmH20 ECHO 08/09/22 - EF 55% , RVSP 50 mmHg repeated Hb 7.[address] 3.4- worsening more acidotic will cont gentle hydration , try bumex x1 with albumin will benefit from renal consult will page PCP Focused Exam Lactate Level 08/23/22 04:50: Lactic Acid Level 2.80*H 08/23/22 06:30: Lactic Acid Level 2.58*H 08/23/22 08:20: Lactic Acid Level 2.78*H Height, Weight, BMI Height: 5'4.00" Weight: 193lbs. 3.0oz. 87.720933js; 32.11 BMI Method: WALI HOGAN MD Aug 24, 2022 17:56
[2022-08-24] MEDS ORDERED: BUMETANIDE 1 MG/4 ML (BUMEX) VIAL IV NR (18:00)
--- NOTE | 2022-08-24 18:34 | Consultation ---
History of Present Illness History of Present Illness Patient Consulted On(asim/time) 08/24/22 18:34 Date Seen by Provider: Aug 24, 2022 Time Seen by Provider: 09:22 Reason for Visit: ra History of Present Illness Mrs. Mcnamara is a 76yoCF who was admitted to the hospital for colon resection due to adenocarcinoma s/p resection on 08/18 complicated by anastomotic leak now with RA. Pt is current on the vent and the history was obtained from her daughter and the RN. Pt was not on nsaids at home. making urine. noe in place. Has edema Allergies and Home Medications Allergies Coded Allergies: amoxicillin (Verified Allergy, Unknown, ENDS UP IN HOSPITAL DOESN'T KNOW FOR SURE, 08/12/22) moxifloxacin (Verified Allergy, Unknown, NOT SURE, 08/12/22) penicillin G (Unverified Allergy, Unknown, ?, 08/12/22) polyethylene glycol 3350 (Verified Allergy, Unknown, SKIN ISSUES TURNS BROWN, 08/12/22) Sulfa (Sulfonamide Antibiotics) (Verified Adverse Reaction, Unknown, EMESIS, 08/18/22) aspirin (Verified Adverse Reaction, Unknown, EMESIS, 08/18/22) Patient Home Medication List Home Medication List Reviewed: Yes Cholecalciferol (Vitamin D3) (Vitamin D3) 25 Mcg (1000 Unit) Capsule, 25 MCG PO DAILY, (Reported) Entered as Reported by: JOSHUA BASHIR on 07/15/22 1147 Last Action: Converted Donepezil HCl (Donepezil HCl) 10 Mg Tablet, 10 MG PO HS, (Reported) Entered as Reported by: JOSHUA BASHIR on 07/15/22 1147 Last Action: Continued Ferrous Sulfate (Ferrous Sulfate) 220 Mg (44 Mg Iron)/5 Ml Elix, 5 ML PO MO,WE,FR, (Reported) Entered as Reported by: ALECIA VAZQUEZ on 08/12/22 1015 Last Action: Held Levetiracetam (Levetiracetam) 1,000 Mg Tablet, 1,000 MG PO BID, (Reported) Entered as Reported by: JOSHUA BASHIR on 07/15/22 1147 Last Action: Continued Lisinopril (Lisinopril) 20 Mg Tablet, 20 MG PO DAILY, (Reported) Entered as Reported by: JOSHUA BASHIR on 07/15/221146 Last Action: Continued Metoprolol Succinate (Metoprolol Succinate) 25 Mg Tab.er.24h, 25 MG PO DAILY, (Reported) Entered as Reported by: JOSHUA BASHIR on 07/15/221146 Last Action: Continued Omeprazole (Omeprazole) 20 Mg Tablet.dr, 20 MG PO BID, (Reported) Entered as Reported by: JOSHUA BASHIR on 07/15/221146 Last Action: Converted Oxybutynin Chloride (Oxybutynin Chloride) 5 Mg Tablet, 5 MG PO BID, (Reported) Entered as Reported by: JOSHUA BASHIR on 07/15/221146 Last Action: Continued Pramipexole Di-HCl (Pramipexole Dihydrochloride) 0.25 Mg Tablet, 0.25 MG PO HS, (Reported) Entered as Reported by: TRACY ORELLANA on 08/19/22 1108 Last Action: Converted Risperidone (Risperidone) 0.5 Mg Tablet, 0.5 MG PO BID, (Reported) Entered as Reported by: JOSHUA BASHIR on 07/15/221146 Last Action: Continued Past Yxqtujk-Tztqhl-Szgzai Hx Patient Social History Tobacco Use?: No Smoking Status: Never a Smoker Substance use?: No Alcohol Use?: No Pt feels they are or have been: No Immunizations Up To Date Tetanus Booster (TDap): Unknown Influenza Vaccine Up-to-Date: Yes; Up-to-Date First/Initial COVID19 Vaccinat: 2020 Second COVID19 Vaccination Asim: 2020 Third COVID19 Vaccination Date: yes COVID19 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[employer] Seasonal Allergies Seasonal Allergies: Yes Past Medical History Surgeries: Yes ( cyst off of neck removed, tumor on right leg removed.) Adenoidectomy, Hysterectomy, Tonsillectomy Respiratory: No Currently Using CPAP: No Currently Using BIPAP: No Cardiac: Yes (BILAT LE VEIN STRIPPING) Hypertension Neurological: Yes (history seizures) Dementia, Seizure Disorder 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 Review of Systems-General Constitutional: see HPI Physical Exam-General Problems Physical Exam Vital Signs Vital Signs - First Documented 08/18/22 08/18/22 08/22/22 09:05 09:15 23:59 Temp 36.6 Pulse 104 Resp 20 B/P (MAP) 147/90 (109) Pulse Ox 98 O2 Delivery Room Air FiO2 30 Capillary Refill : Less Than 3 Seconds General Appearance: no apparent distress Cardiovascular: no JVD Extremities: pedal edema Assessment/Plan Assessment/Plan Admission Diagnosis/Plan RA due to infection, hypotension continue supportive care renally dose meds avoid hypotension and nephrotoxins will reduce rate of ivf to avoid overloading acute resp failure on vent cc managing adenocarcinoma s/p resection complicated by anastomotic leak surgery following supportive care anemia monitor closely Thank you for allowing me to participate in the care of this very pleasant patient. Today's visit was conducted via secure video chat. Admission Status: Inpatient Order (span 2 midnights) LINDA DORSEY MD Aug 24, 2022 18:34
[2022-08-24] MEDS: PRAMIPEXOLE 0.125 MG (MIRAPEX) TABLET PO SCH (20:44)
[2022-08-24] MEDS: DONEPEZIL 10 MG (ARICEPT) TAB PO SCH (20:44)
[2022-08-25] VITALS (15 sets, daily range): BP systolic 95–151; BP diastolic 42–63
[2022-08-25] MEDS: inSUlin ASPART (NovoLOG) 1 UNIT/0.01 ML (CHARGE PER UNIT) SC SCH ×4 (00:28→18:00)
[2022-08-25] MEDS: PROPOFOL DRIP (ICU) 100 ML IV SCH ×4 (02:04→19:30)
[2022-08-25] MEDS: NOREPINEPHRINE 8 MG/250 ML 250 ML IV SCH (02:15)
[2022-08-25] MEDS: morphine INJ 4 MG/ML 1 ML (VIAL/SYRINGE) IVP PRN (04:22)
[2022-08-25 04:44] LABS: ABG BASE EXCESS -4.6 MMOL/L (-2.5-2.5); ABG OXYGEN SATURATION 93 % (94-100); ABG PCO2 33 MMHG (35-45); ABG PH 7.39 (7.37-7.43); ABG PO2 61 MMHG (79-93); ABG TCO2 20.5 MMOL/L (21.0-31.0)
[2022-08-25 04:45] LABS: ALLENS TEST YES-POS
[2022-08-25 04:46] LABS: INSPIRED O2 30%; PATIENT TEMP 36.6; VENTILATOR YES
[2022-08-25 05:20] LABS: BASOPHILS # (AUTO) 0.1 10^3/uL (0.0-0.1); BASOPHILS % (AUTO) 1 % (0-10); EOSINOPHILS # (AUTO) 0.4 10^3/uL (0.0-0.3); EOSINOPHILS % (AUTO) 2 % (0-10); LYMPHOCYTES # (AUTO) 1.2 10^3/uL (1.0-4.0); LYMPHOCYTES % (AUTO) 6 % (12-44); MEAN CORPUSCULAR HEMOGLOBIN 22 pg (25-34); MEAN CORPUSCULAR HGB CONC 32 g/dL (32-36); MEAN CORPUSCULAR VOLUME 69 fL (80-99); MONOCYTES # (AUTO) 0.9 10^3/uL (0.0-1.0); MONOCYTES % (AUTO) 4 % (0-12); NEUTROPHILS # (AUTO) 17.6 10^3/uL (1.8-7.8); NEUTROPHILS % (AUTO) 86 % (42-75); PLATELET COUNT 211 10^3/uL (130-400); WHITE BLOOD COUNT 20.4 10^3/uL (4.3-11.0)
[2022-08-25 05:29] LABS: HEMOGLOBIN 6.6 g/dL (11.5-16.0)
[2022-08-25 05:30] LABS: HEMATOCRIT 20 % (35-52)
[2022-08-25] MEDS: LACTATED RINGERS 1,000 ML IV SCH (05:39)
[2022-08-25] MEDS: ALBUMIN 25% 25 GM/100 ML 100 ML IV SCH ×2 (05:39→14:04)
[2022-08-25 05:41] LABS: CALCIUM 8.2 MG/DL (8.5-10.1); CREATININE SERUM 3.01 MG/DL (0.60-1.30); MAGNESIUM 1.9 MG/DL (1.6-2.4); PHOSPHORUS 3.3 MG/DL (2.3-4.7); POTASSIUM 3.6 MMOL/L (3.6-5.0)
[2022-08-25] MEDS: POTASSIUM CL 10MEQ/50ML IVPB 50 ML IV SCH (06:04)
[2022-08-25] MEDS: MAGNESIUM 1 GM/100 ML IVPB 100 ML IV SCH (06:04)
[2022-08-25] MEDS: ACETAMINOPHEN 500 MG TAB (TYLENOL) PO SCH ×3 (06:05→21:53)
[2022-08-25] MEDS: KCL 20 MEQ TAB (K-DUR) PO SCH (06:05)
[2022-08-25] MEDS: RT-ALBUTEROL SULF 2.5 MG/3 ML PRE-MIX VIAL INH SCH ×2 (06:34→19:05)
[2022-08-25] MEDS: VASOPRESSIN INJECTION 20 UNIT in NS (IVPB) 100 ML IV SCH (07:16)
--- NOTE | 2022-08-25 08:09 | Physical Therapy Progress Note ---
Therapy Progress Note Patient transferred to ICU due to decline in status. PT will require new orders. EDMUNDO GREGORY PT Aug 25, 2022 08:09
--- NOTE | 2022-08-25 08:14 | Progress Note - Surgery ---
DARRON HIGGINS 08/25/22 0814: Subjective Date Seen by a Provider: Aug 25, 2022 Time Seen by a Provider: 07:40 Subjective/Events-last exam Patient currently intubated and mechanically ventilated. Per nursing, drainage in her RICCARDO bag has been serous with the left draining more than the right. 400 mL of urine output from 7:00 pm - 7:00 am (compared to ~ 50 mL yesterday). Focused Exam Lactate Level 08/23/22 04:50: Lactic Acid Level 2.80*H 08/23/22 06:30: Lactic Acid Level 2.58*H 08/23/22 08:20: Lactic Acid Level 2.78*H Objective Exam Vital Signs Date Time Temp Pulse Resp B/P (MAP) Pulse Ox O2 Delivery O2 Flow Rate FiO2 08/25/22 07:48 36.0 08/25/22 07:17 105 127/48 08/25/22 07:16 102 127/48 08/25/22 06:36 95 151/55 08/25/22 06:35 93 22 92 30 08/25/22 06:04 101 138/55 08/25/22 06:00 100 22 141/61 (88) 92 Mechanical Ventilator 30.00 08/25/22 05:00 101 22 138/55 (91) 94 Mechanical Ventilator 30.00 08/25/22 04:00 96 22 130/51 (77) 95 Mechanical Ventilator 30.00 08/25/22 04:00 94 Mechanical Ventilator 30 08/25/22 03:37 93 134/58 08/25/22 03:00 96 22 145/57 (86) 93 Mechanical Ventilator 30.00 08/25/22 02:36 98 22 96 30 08/25/22 02:15 104 146/65 08/25/22 02:04 104 146/65 08/25/22 02:00 98 22 141/59 (80) 95 Mechanical Ventilator 30.00 08/25/22 01:00 112 08/25/22 01:00 112 22 133/63 (83) Mechanical Ventilator 30.00 08/25/22 00:54 104 146/65 08/25/22 00:00 104 22 146/65 (82) 98 Mechanical Ventilator 30.00 08/24/22 23:59 99 Mechanical Ventilator 30 08/24/22 23:45 101 149/65 08/24/22 23:00 107 22 139/62 (81) 97 Mechanical Ventilator 30.00 08/24/22 22:24 111 163/66 08/24/22 22:00 110 22 158/70 (96) 97 Mechanical Ventilator 30.00 08/24/22 21:30 105 22 158/69 (98) 100 Mechanical Ventilator 30.00 08/24/22 21:28 105 22 100 40 08/24/22 20:54 109 155/65 08/24/22 20:43 109 155/65 08/24/22 20:24 105 150/69 08/24/22 20:05 37.6 107 18 159/73 (101) 100 Mechanical Ventilator 40.00 08/24/22 20:00 100 Mechanical Ventilator 40 08/24/22 19:40 106 153/71 08/24/22 19:20 107 147/54 08/24/22 19:00 108 08/24/22 19:00 108 22 140/67 (94) 100 Mechanical Ventilator 40.00 08/24/22 18:59 Arterial Line 08/24/22 18:49 107 147/54 08/24/22 18:32 107 22 100 40 08/24/22 18:00 107 21 138/66 (90) 100 Mechanical Ventilator 40.00 08/24/22 17:00 112 21 126/60 (82) 100 Mechanical Ventilator 40.00 08/24/22 16:34 37.8 08/24/22 16:24 112 154/67 08/24/22 16:10 100 Mechanical Ventilator 40 08/24/22 16:00 108 21 154/75 (101) 100 Mechanical Ventilator 40.00 08/24/22 16:00 112 154/67 08/24/22 15:00 112 21 150/64 (92) 98 Mechanical Ventilator 40.00 08/24/22 14:50 112 22 98 40 08/24/22 14:11 111 145/52 08/24/22 14:00 125 13 135/68 (90) 96 Mechanical Ventilator 40.00 08/24/22 13:00 111 08/24/22 13:00 110 21 145/52 (83) 100 Mechanical Ventilator 40.00 08/24/22 12:45 38.3 08/24/22 12:15 96 Mechanical Ventilator 40 08/24/22 12:06 38.5 08/24/22 12:00 124 22 138/71 (93) 94 Mechanical Ventilator 40.00 08/24/22 11:24 124 151/71 08/24/22 11:00 131 30 137/60 (85) 97 Mechanical Ventilator 40.00 08/24/22 10:56 124 22 98 40 08/24/22 10:50 123 80/58 08/24/22 10:44 123 80/58 08/24/22 10:31 125 80/58 08/24/22 10:07 37.7 129 20 135/68 98 Mechanical Ventilator 40 08/24/22 10:00 131 22 135/68 (90) 100 Mechanical Ventilator 40.00 08/24/22 09:00 137 17 145/62 (89) 99 Mechanical Ventilator 40.00 I & O 08/25/22 07:00 Intake Total 750 ml Output Total 1310 ml Balance -560 ml Capillary Refill : Less Than 3 Seconds General Appearance: Chronically ill, Other (intubated and sedated) HEENT: Other (ET and NGT in place) Neck: Supple; No Thyromegaly Respiratory: Crackles (Bilateral lower lobes), Other (on mechanical ventilation) Cardiovascular: No Murmur, Tachycardia Peripheral Pulses: 2+ Radial Pulses (R), 2+ Radial Pulses (L) Gastrointestinal: soft, abnormal bowel sounds (hypoactive), distended (mildly), other (incision still packed with Betadine soaked kerlix, some serosanginuous fluid along incision ) Extremity: Pedal Edema (marked, bilateral ), Other (Compression cuffs on lower extremity bilaterally) Neurologic/Psychiatric: Other (intubated and sedated currently) Skin: Pallor Lymphatic: No Adenopathy Results Lab Laboratory Tests 08/24/22 11:23: Glucometer 77 08/24/22 11:55: Hemoglobin 7.3L, Hematocrit 23L 08/24/22 16:50: Hemoglobin 7.0L, Hematocrit 22L, White Blood Count 20.5H, Red Blood Count 3.08L, Mean Corpuscular Volume 71L, Mean Corpuscular Hemoglobin 23L, Mean Corpuscular Hemoglobin Concent 32, Red Cell Distribution Width 19.9H, Platelet Count 224, Mean Platelet Volume 9.8, Immature Granulocyte % (Auto) 1, Neutrophils (%) (Auto) 88H, Lymphocytes (%) (Auto) 6L, Monocytes (%) (Auto) 3, Eosinophils (%) (Auto) 2, Basophils (%) (Auto) 1, Neutrophils # (Auto) 18.0H, Lymphocytes # (Auto) 1.2, Monocytes # (Auto) 0.6, Eosinophils # (Auto) 0.4H, Basophils # (Auto) 0.1, Immature Granulocyte # (Auto) 0.2H, Sodium Level 130L, Potassium Level 3.9, Chloride Level 101, Carbon Dioxide Level 18L, Anion Gap 11, Blood Urea Nitrogen 28H, Creatinine 3.39H, Estimat Glomerular Filtration Rate 13, BUN/Creatinine Ratio 8, Glucose Level 100, Calcium Level 8.0L 08/25/22 00:27: Glucometer 93 08/25/22 04:40: Blood Gas Puncture Site RT RADIAL, Blood Gas Patient Temperature 36.6, Arterial Blood pH 7.39, Arterial Blood Partial Pressure CO2 33L, Arterial Blood Partial Pressure O2 61L, Arterial Blood HCO3 20L, Arterial Blood Total CO2 20.5L, Arterial Blood Oxygen Saturation 93L, Arterial Blood Base Excess -4.6L, Aiden Test YES-POS, Blood Gas Ventilator Setting YES, Blood Gas Inspired Oxygen 30% 08/25/22 04:55: White Blood Count 20.4H, Red Blood Count 2.97L, Hemoglobin 6.6*L, Hematocrit 20*L, Mean Corpuscular Volume 69L, Mean Corpuscular Hemoglobin 22L, Mean Corpuscular Hemoglobin Concent 32, Red Cell Distribution Width 19.9H, Platelet Count 211, Mean Platelet Volume 10.0, Immature Granulocyte % (Auto) 1, Neutrophils (%) (Auto) 86H, Lymphocytes (%) (Auto) 6L, Monocytes (%) (Auto) 4, Eosinophils (%) (Auto) 2, Basophils (%) (Auto) 1, Neutrophils # (Auto) 17.6H, Lymphocytes # (Auto) 1.2, Monocytes # (Auto) 0.9, Eosinophils # (Auto) 0.4H, Basophils # (Auto) 0.1, Immature Granulocyte # (Auto) 0.3H, Sodium Level 131L, Potassium Level 3.6, Chloride Level 102, Carbon Dioxide Level 17L, Anion Gap 12, Blood Urea Nitrogen 28H, Creatinine 3.01H, Estimat Glomerular Filtration Rate 15, BUN/Creatinine Ratio 9, Glucose Level 97, Calcium Level 8.2L, Phosphorus Level 3.3, Magnesium Level 1.9, Triglycerides Level 137 Microbiology 08/23/22 Gram Stain - Final, Resulted 08/23/22 Sputum Culture - Preliminary, Resulted Pseudomonas aeruginosa 08/22/22 Blood Culture - Preliminary, Resulted Streptococcus mitis group 08/22/22 Urine Culture - Final, Complete NO GROWTH Assessment/Plan Assessment/Plan Assessment/Plan Sepsis/Hypotension/Metabolic acidosis - due to anastomotic Leak - streptococcus viridins isolated in blood culture (08/23) - normotensive as of 08/24 still on pressors - continue IV fluids - continue gentamicin and clindamycin Acute kidney injury - likely related to sepsis - Cr 3.01 down from 3.39 on 08/24 Anemia - Hb 6.6 on 08/25 s/p transfusion of 1 unit on 08/24 - monitor and transfuse as needed S/P colon resection - adenocarcinoma of ascending colon - right hemicolectomy on 08/18 - repeat colon resection on 08/23 Pt is fluid overloaded now, this usually takes about 3 days after surgery for pt to diurese; may take longer if renal function doesn't come back. Hopefully the RA is only due to sepsis and now that the problem has been fixed they will get better. Wean from vent as tolerated. KOURTNEY ARAGON DO 08/25/22 1613: Subjective Time Seen by a Provider: 08:31 Subjective/Events-last exam Pt seen and examined, intubated and sedated. Review of Systems unable to obtain, pt sedated Objective Exam General Appearance: Chronically ill, Other (intubated and sedated) HEENT: Other (ET and NGT in place) Respiratory: Crackles (Bilateral lower lobes), Other (on mechanical ventilation) Cardiovascular: Regular Rate, Rhythm, No Murmur Gastrointestinal: soft, abnormal bowel sounds (hypoactive), distended (mildly), other (incision still packed with Betadine soaked kerlix, some serosanginuous fluid along incision, serous fluid in drains) Extremity: Pedal Edema (marked, bilateral ), Other (Compression cuffs on lower extremity bilaterally) Skin: Pallor Assessment/Plan Assessment/Plan Assessment/Plan Sepsis/Hypotension/Metabolic acidosis - due to anastomotic Leak - streptococcus viridins isolated in blood culture (08/23) - normotensive as of 08/24 still on pressors - continue IV fluids - continue gentamicin and clindamycin Acute kidney injury - likely related to sepsis - Cr 3.01 down from 3.39 on 08/24 Anemia - Hb 6.6 on 08/25 s/p transfusion of 1 unit on 08/24, she is getting another unit - monitor and transfuse as needed S/P colon resection - adenocarcinoma of ascending colon - right hemicolectomy on 08/18 - repeat colon resection on 08/23 Pt is fluid overloaded now, this usually takes about 3 days after surgery for pt to diurese; may take longer if renal function doesn't come back. Hopefully the RA is only due to sepsis and now that the problem has been fixed they will get better. Wean from vent as tolerated. Supervisory-Addendum Brief Verification & Attestation Participated in pt care: history, MDM, physical Personally performed: exam, history, MDM, supervision of care Care discussed with: Medical Student Procedures: n/a Verification and Attestation of Medical Student E/M Service A medical student performed and documented this service. I then reviewed and verified all information documented by the medical student and made modifications to such information, when appropriate. I personally performed a physical exam, medical decision making and then discussed any differences between the notes and made revisions as necessary to create one note. Kourtney Aragon , 08/25/22 , 16:13 DARRON HIGGINS Aug 25, 2022 08:14 KOURTNEY ARAGON DO Aug 25, 2022 16:13
[2022-08-25] MEDS: OXYBUTYNIN (DITROPAN) 5 MG TAB PO SCH ×2 (08:38→19:34)
[2022-08-25] MEDS: PANTOPRAZOLE 40 MG (PROTONIX) VIAL IVP SCH (08:38)
[2022-08-25] MEDS: levETIRAcetam 1000 mg/NS 100ml IVPB IV SCH ×2 (08:38→21:36)
[2022-08-25] MEDS: lisINopril 20 MG (PRINIVIL) TABLET PO SCH (08:39)
[2022-08-25] MEDS: VITAMIN D3 25 MCG (1,000 UNITS) TABLET PO SCH (08:39)
[2022-08-25] MEDS: risperiDONE 0.5 MG (RisperDAL) TABLET PO SCH ×2 (08:39→19:34)
[2022-08-25] MEDS: MEROPENEM 500 MG/NS 100 ML IVPB IV SCH ×4 (09:44→22:27)
[2022-08-25] MEDS ORDERED: NS IV 500 ML 500 ML IV SCH ×2 (10:45→17:30)
[2022-08-25] MEDS: HYPOCHLOROUS ACID/NaCl (VASHE) 250 ML IR PRN (10:50)
--- NOTE | 2022-08-25 10:52 | Tele-ICU Progress Note ---
Subjective Date Seen by a Provider: Aug 25, 2022 Time Seen by a Provider: 10:52 Subjective/Events-last exam (Tele-ICU Physician , Progress Note ) Service provided via interactive audio and video telecommunications E-CARE system to a patient admitted to ICU bed in [facility]. Patient is seen today due to persistent need of ICU care Available chart/ vitals / labs / Images reviewed Video assessment done using teleICU camera, rest of exam as per RN Discussed with RN Events overnight : febrile hemodynamically stable Respiratory - 40 % I/O = pos VENT SETTINGS and ABG reviewed NOT CANDIDATE for SBTreviewed possible contraindications including Cardiovascular Stability /Sedation Score / FI02/PEEP / ABG / CXR/ secretions Sedation, discussed with RN, RASS on propofol 30 , morphine prn Drips: LR 42 Pressors- levo 0.47 Hospital course: (08/18) 76F s/p Lap R hemicolectomy and excision of intraperitoneal mass. (08/22) to ICU with hypotension, tachycardia, and increased pain, r/o Intra- abdominal process - ?Anastomosis leak. CTA = Neg P Embolus. CT A/P = ?Asp PNA. (08/23) OR-Diagnostic Laparoscopy, laparotomy with colon resection and washout INTUBATED 08/24 - AC 16 40 % levo , added vaso 1 u PRBC transfused ( hb 6.6) , CR 3.4 - hydration and lasix x1 ( anuric ) renal consult , CVP 12 , Echo ef 55% 08/25 - AC 22 450 30% +6 , Cr 3 , Hb 6.6 - 1uPRBC , wound vac placed 08/25 , OFF LEVO , vaso A/P Acute hypoxic respiratory failure secondary to possible underlying sepsis, pneumonia and bibasilar atelectasis- INTUBATED 08/20 - AC 22 450 30% +6 - minimal secretions Shock -?secondary to possible sepsis -LEVO OFF 08/25 , vaso 08/24 -ECHO 08/09/22 - EF 55% , RVSP 50 mmHg , CVP12 Sepsis ( off -clindamycin and gentamicin) - sputum + for PSA - changed to merrem 08/24 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 - as per sx , wound vac placed 08/25 RA - Cr to 3 on 08/24 , UO only 90 cc for day shift 08/24 - received lasix 40 x1 - -> UO 1200 - renal consulted - follow with hydration , albumin , transfusion Anemia (Perioperative anemia hb 9 - hb 6.6 - no obvious bleeding - follow -s/p tramsfusion 1 u PRBC 08/24 and 08/25 Hyponatremia - mild , follow Pulm HTN - ECHO 08/09/22 RVSP 50 mmHg - fluid status as per renal now - follow Nutrition - as per Sx , no parental feeding post op 08/23--> Lines : L IJ 08/22 (Central Line Necessity Reviewed) Phillips: + OG: Nutrition: npo - as per SX Analgesia: Anxiety/ delirium VTE Prophylaxis: heparin sq if no active bleeding Stress Ulcer Prophylaxis: ppi Plans in collaboration with bedside consultants and IM MDs. Discussed with RN to reach out if any questions or concerns A total of 34 minutes of critical care time was devoted to this patient today, required to treat and/or prevent further deterioration of critical care condition ( as above ) . I am remotely monitoring this patient from another state. I am unable to do the bedside exam, and history/physical and pertinent information is taken from other notes in the computer and bedside staff. Sepsis Event Evaluation Height, Weight, BMI Height: 5'4.00" Weight: 193lbs. 3.0oz. [id number]; 32.11 BMI Method: Focused Exam Lactate Level 08/23/22 04:50: Lactic Acid Level 2.80*H 08/23/22 06:30: Lactic Acid Level 2.58*H 08/23/22 08:20: Lactic Acid Level 2.78*H Exam Exam Patient acknowledged, consented, and participated in this virtual visit which was conducted using real time audio/video Vital Signs Date Time Temp Pulse Resp B/P (MAP) Pulse Ox O2 Delivery O2 Flow Rate FiO2 08/25/22 10:13 95 22 100 30 08/25/22 09:00 96 22 109/50 (69) 99 Mechanical Ventilator 30.00 08/25/22 08:35 98 108/51 08/25/22 08:00 104 21 121/55 (77) 92 Mechanical Ventilator 30.00 08/25/22 07:55 97 126/63 08/25/22 07:48 36.0 08/25/22 07:17 105 127/48 08/25/22 07:16 102 127/48 08/25/22 07:00 99 21 137/59 (85) 93 Mechanical Ventilator 30.00 08/25/22 06:56 99 08/25/22 06:36 95 151/55 08/25/22 06:35 93 22 92 30 08/25/22 06:04 101 138/55 08/25/22 06:00 100 22 141/61 (88) 92 Mechanical Ventilator 30.00 08/25/22 05:00 101 22 138/55 (91) 94 Mechanical Ventilator 30.00 08/25/22 04:00 96 22 130/51 (77) 95 Mechanical Ventilator 30.00 08/25/22 04:00 94 Mechanical Ventilator 30 08/25/22 03:37 93 134/58 08/25/22 03:00 96 22 145/57 (86) 93 Mechanical Ventilator 30.00 08/25/22 02:36 98 22 96 30 08/25/22 02:15 104 146/65 08/25/22 02:04 104 146/65 08/25/22 02:00 98 22 141/59 (80) 95 Mechanical Ventilator 30.00 08/25/22 01:00 112 08/25/22 01:00 112 22 133/63 (83) Mechanical Ventilator 30.00 08/25/22 00:54 104 146/65 08/25/22 00:00 104 22 146/65 (82) 98 Mechanical Ventilator 30.00 08/24/22 23:59 99 Mechanical Ventilator 30 08/24/22 23:45 101 149/65 08/24/22 23:00 107 22 139/62 (81) 97 Mechanical Ventilator 30.00 08/24/22 22:24 111 163/66 08/24/22 22:00 110 22 158/70 (96) 97 Mechanical Ventilator 30.00 08/24/22 21:30 105 22 158/69 (98) 100 Mechanical Ventilator 30.00 08/24/22 21:28 105 22 100 40 08/24/22 20:54 109 155/65 08/24/22 20:43 109 155/65 08/24/22 20:24 105 150/69 08/24/22 20:05 37.6 107 18 159/73 (101) 100 Mechanical Ventilator 40.00 08/24/22 20:00 100 Mechanical Ventilator 40 08/24/22 19:40 106 153/71 08/24/22 19:20 107 147/54 08/24/22 19:00 108 08/24/22 19:00 108 22 140/67 (94) 100 Mechanical Ventilator 40.00 08/24/22 18:59 Arterial Line 08/24/22 18:49 107 147/54 08/24/22 18:32 107 22 100 40 08/24/22 18:00 107 21 138/66 (90) 100 Mechanical Ventilator 40.00 08/24/22 17:00 112 21 126/60 (82) 100 Mechanical Ventilator 40.00 08/24/22 16:34 37.8 08/24/22 16:24 112 154/67 08/24/22 16:10 100 Mechanical Ventilator 40 08/24/22 16:00 108 21 154/75 (101) 100 Mechanical Ventilator 40.00 08/24/22 16:00 112 154/67 08/24/22 15:00 112 21 150/64 (92) 98 Mechanical Ventilator 40.00 08/24/22 14:50 112 22 98 40 08/24/22 14:11 111 145/52 08/24/22 14:00 125 13 135/68 (90) 96 Mechanical Ventilator 40.00 08/24/22 13:00 111 08/24/22 13:00 110 21 145/52 (83) 100 Mechanical Ventilator 40.00 08/24/22 12:45 38.3 08/24/22 12:15 96 Mechanical Ventilator 40 08/24/22 12:06 38.5 08/24/22 12:00 124 22 138/71 (93) 94 Mechanical Ventilator 40.00 08/24/22 11:24 124 151/71 08/24/22 11:00 131 30 137/60 (85) 97 Mechanical Ventilator 40.00 08/24/22 10:56 124 22 98 40 I & O 08/25/22 07:00 Intake Total 750 ml Output Total 1310 ml Balance -560 ml Height & Weight Height: 5'4.00" Weight: 193lbs. 3.0oz. 87.855253fc; 32.11 BMI Method: General Appearance: Chronically ill, Other (intubated and sedated) HEENT: Other (ET and NGT in place) Neck: Supple; No Thyromegaly Respiratory: Crackles (Bilateral lower lobes), Other (on mechanical ventilation) Cardiovascular: No Murmur, Tachycardia Capillary Refill: Less Than 3 Seconds Peripheral Pulses: 2+ Radial Pulses (R), 2+ Radial Pulses (L) Gastrointestinal: soft, abnormal bowel sounds (hypoactive), distended (mildly), other (incision still packed with Betadine soaked kerlix, some serosanginuous fluid along incision ) Extremity: Pedal Edema (marked, bilateral ), Other (Compression cuffs on lower extremity bilaterally) Neurologic/Psychiatric: Other (intubated and sedated currently) Skin: Pallor Lymphatic: No Adenopathy Results Lab Laboratory Tests 08/24/22 04:50 08/24/22 11:55 08/24/22 16:50 08/25/22 04:55 Assessment/Plan Assessment/Plan 1 WALI HOGAN MD Aug 25, 2022 10:52
--- NOTE | 2022-08-25 11:04 | Cardiology Progress Note ---
Subjective Date Seen by Provider: Aug 25, 2022 Time Seen by Provider: 10:45 Subjective/Events-last exam Patient sedated and intubated Focused Exam Lactate Level 08/23/22 04:50: Lactic Acid Level 2.80*H 08/23/22 06:30: Lactic Acid Level 2.58*H 08/23/22 08:20: Lactic Acid Level 2.78*H Objective-Cardiology Exam Last Set of Vital Signs Vital Signs 08/25/22 08/25/22 08/25/22 11:41 12:00 12:40 Temp 36.8 Pulse 98 Resp 21 B/P (MAP) 106/64 Pulse Ox 94 O2 Delivery Mechanical Ventilator O2 Flow Rate 30.00 FiO2 30 I&O Intake and Output 08/25/22 00:00 Intake Total 2650 ml Output Total 1205 ml Balance 1445 ml Intake Oral 0 ml IV Total 2550 ml Other 100 ml Output Urine Total 240 ml Drainage Total 965 ml General: Other (intubated) Lungs: Other (ronchi) Heart: Other (tachycardic) Abdomen: Normal Bowel Sounds, Other (distended but relatively soft, drain in place, dressing in place) Extremities: Other (2+ pitting edema) Skin: No Rashes, No Significant Lesion Neuro: Other (Sedated and intubated) Psych/Mental Status: Other (Sedated and intubated) Results Lab Laboratory Tests 08/24/22 16:50 08/25/22 04:55 A/P-Cardiology Admission Diagnosis Septic shock Hypotension Adenocardinoma Assessment/Plan Adenocarinoma of ascending colon, s/p partial colon and intraperitoneal mass resection Status post acute abdomen on August 23, 2022 underwent exploratory laparotomy, anastomosis leak was noted Currently having a drain, managed by surgical team Septic shock, hypotensive, tachycardic, respiratory failure Receiving IV fluid Receiving Levophed Continue with supportive care Ventilator dependent respiratory failure, sedated and intubated Managed by medical team Sinus tachycardia secondary to sepsis Continue with supportive care History of hypertension Currently hypotensive, maintained on IV fluid and Levophed Continue to monitor Nonobstructive carotid artery stenosis per carotid duplex done Jul 2022. Supervisory-Addendum Brief Supervisory Addendum Participated in pt care: history, MDM, physical Personally performed: exam, history, MDM Care discussed with: PIERO Results interpretation: Verified all documentation Notes: Patient was seen and evaluated with Nick, examination performed, management plan was discussed, agree with the current scribed note, I made few changes to the note using Italic font Patient was seen at bedside, laying down comfortably, sedated and intubated Heart rate is better today, blood pressure appears to be more stable Continue to monitor, try to wean her off the ventilator. NICK MONAHAN Aug 25, 2022 11:04 NORMA DIAMOND MD Aug 25, 2022 13:29
--- NOTE | 2022-08-25 11:17 | Progress Note ---
Subjective Subjective/Events-last exam Pt started on vasopressin last night and tapering norepinephrine. Renal function slightly improved this am and having better urine out put this morning. Focused Exam Lactate Level 08/23/22 04:50: Lactic Acid Level 2.80*H 08/23/22 06:30: Lactic Acid Level 2.58*H 08/23/22 08:20: Lactic Acid Level 2.78*H Objective Exam Last Set of Vital Signs Vital Signs Date Time Temp Pulse Resp B/P (MAP) Pulse Ox O2 Delivery O2 Flow Rate FiO2 08/25/22 10:13 95 22 100 30 08/25/22 09:00 109/50 (69) Mechanical Ventilator 30.00 08/25/22 07:48 36.0 Capillary Refill : Less Than 3 Seconds I&O Intake and Output 08/25/22 00:00 Intake Total 2650 ml Output Total 1205 ml Balance 1445 ml Intake Oral 0 ml IV Total 2550 ml Other 100 ml Output Urine Total 240 ml Drainage Total 965 ml General: Other (intubated) Lungs: Other (ronchi) Heart: Other (tachycardic) Abdomen: Normal Bowel Sounds, Soft Extremities: Other (2+ pitting edema) Results/Procedures Lab Laboratory Tests 08/24/22 11:23: Glucometer 77 08/24/22 11:55: Hemoglobin 7.3L, Hematocrit 23L 08/24/22 16:50: Hemoglobin 7.0L, Hematocrit 22L, White Blood Count 20.5H, Red Blood Count 3.08L, Mean Corpuscular Volume 71L, Mean Corpuscular Hemoglobin 23L, Mean Corpuscular Hemoglobin Concent 32, Red Cell Distribution Width 19.9H, Platelet Count 224, Mean Platelet Volume 9.8, Immature Granulocyte % (Auto) 1, Neutrophils (%) (Auto) 88H, Lymphocytes (%) (Auto) 6L, Monocytes (%) (Auto) 3, Eosinophils (%) (Auto) 2, Basophils (%) (Auto) 1, Neutrophils # (Auto) 18.0H, Lymphocytes # (Auto) 1.2, Monocytes # (Auto) 0.6, Eosinophils # (Auto) 0.4H, Basophils # (Auto) 0.1, Immature Granulocyte # (Auto) 0.2H, Sodium Level 130L, Potassium Level 3.9, Chloride Level 101, Carbon Dioxide Level 18L, Anion Gap 11, Blood Urea Nitrogen 28H, Creatinine 3.39H, Estimat Glomerular Filtration Rate 13, BUN/Creatinine Ratio 8, Glucose Level 100, Calcium Level 8.0L 08/25/22 00:27: Glucometer 93 08/25/22 04:40: Blood Gas Puncture Site RT RADIAL, Blood Gas Patient Temperature 36.6, Arterial Blood pH 7.39, Arterial Blood Partial Pressure CO2 33L, Arterial Blood Partial Pressure O2 61L, Arterial Blood HCO3 20L, Arterial Blood Total CO2 20.5L, Arterial Blood Oxygen Saturation 93L, Arterial Blood Base Excess -4.6L, Aiden Test YES-POS, Blood Gas Ventilator Setting YES, Blood Gas Inspired Oxygen 30% 08/25/22 04:55: White Blood Count 20.4H, Red Blood Count 2.97L, Hemoglobin 6.6*L, Hematocrit 20*L, Mean Corpuscular Volume 69L, Mean Corpuscular Hemoglobin 22L, Mean Corpuscular Hemoglobin Concent 32, Red Cell Distribution Width 19.9H, Platelet Count 211, Mean Platelet Volume 10.0, Immature Granulocyte % (Auto) 1, Kenny trophils (%) (Auto) 86H, Lymphocytes (%) (Auto) 6L, Monocytes (%) (Auto) 4, Eosinophils (%) (Auto) 2, Basophils (%) (Auto) 1, Neutrophils # (Auto) 17.6H, Lymphocytes # (Auto) 1.2, Monocytes # (Auto) 0.9, Eosinophils # (Auto) 0.4H, Basophils # (Auto) 0.1, Immature Granulocyte # (Auto) 0.3H, Sodium Level 131L, Potassium Level 3.6, Chloride Level 102, Carbon Dioxide Level 17L, Anion Gap 12, Blood Urea Nitrogen 28H, Creatinine 3.01H, Estimat Glomerular Filtration Rate 15, BUN/Creatinine Ratio 9, Glucose Level 97, Calcium Level 8.2L, Phosphorus Level 3.3, Magnesium Level 1.9, Triglycerides Level 137 Microbiology 08/23/22 Gram Stain - Final, Resulted 08/23/22 Sputum Culture - Preliminary, Resulted Pseudomonas aeruginosa 08/22/22 Blood Culture - Preliminary, Resulted Streptococcus mitis group 08/22/22 Urine Culture - Final, Complete NO GROWTH Assessment/Plan Assessment/Plan (1) S/P colon resection Status: Acute Assessment & Plan: Surgery following, appreciate recommendations. To OR for anastomotic leak repair on 08/23 (2) Sepsis Status: Acute Assessment & Plan: Moved to ICU, received IVF boluses, remained hypotensive and started on norepinephrine. Blood cx with gram pos cocci. Continued on clindamycin and gentamicin. 08/24- worsening in spite of surgical repair, change antibiotics to meropnem to avoid nephrotoxicity. Remaining tachycardic and hypotensive, now with decreasing urine output as well. Albumin ordered per [facility] ICU, appreciate recommendations. 08/25- slight improvement in renal function and heart rate, continue meropenem and vasopressin, titrate as able. Remains on ventilator, on 30% FiO2. Qualifiers: (3) Acute kidney injury Status: Acute Assessment & Plan: Acute on chronic, suspect secondary to sepsis. IVF and norepi as above as well as treating underlying infection. Monitor closely. 08/24- worsening, but as of yet potassium remains normal. Treating infection with antibiotic change as above, continue IVF and norepinephrine. 08/25- Nephrology consulted last night, anticipated need for transfer if UOP persistently decreased, but has improved this am and creatinine slightly improved also. Appreciate Nephrology recommendations. (4) Hyperphosphatemia Status: Resolved Assessment & Plan: 08/24 normalized. (5) Colon cancer Assessment & Plan: s/p resection as above. (6) GERD (gastroesophageal reflux disease) Status: Chronic (7) Seizure disorder Status: Chronic Assessment & Plan: On IV Keppra (8) Hypertension Status: Chronic Assessment & Plan: Currently hypotensive Qualifiers: Qualified Codes: I10 - Essential (primary) hypertension (9) Alzheimer disease Status: Chronic (10) CKD (chronic kidney disease) Status: Chronic Qualifiers: Qualified Codes: N18.31 - Chronic kidney disease, stage 3a (11) Anemia Status: Acute Assessment & Plan: Acute on chronic, suspect blood loss related to procedures and lab draws. s/p 1 unit PRBC 08/24 with improvement, but down below 7 again today, repeat transfusion. (12) Goals of care, counseling/discussion Status: Acute Assessment & Plan: 08/23 Critically ill, No family at bedside currently, when asked if she would want compressions and intubation, she did shake her head yes. 08/24 updated granddaughter/DPOA by phone this morning (13) DVT prophylaxis Status: Acute Assessment & Plan: heparin BETTY CASTILLO MD Aug 25, 2022 11:17
[2022-08-25 16:54] LABS: HEMOGLOBIN 6.9 g/dL (11.5-16.0)
[2022-08-25] MEDS: DONEPEZIL 10 MG (ARICEPT) TAB PO SCH (19:34)
[2022-08-25] MEDS: PRAMIPEXOLE 0.125 MG (MIRAPEX) TABLET PO SCH (19:34)
[2022-08-26] MEDS: inSUlin ASPART (NovoLOG) 1 UNIT/0.01 ML (CHARGE PER UNIT) SC SCH ×5 (00:13→23:38)
[2022-08-26] MEDS ORDERED: DEXTROSE 50% 50 ML (IMS) SYR IV ONE ×2 (00:15→12:45)
[2022-08-26] MEDS ORDERED: DEXTROSE 50% 50 ML (IMS) SYR ONE ×2 (00:17→12:35)
[2022-08-26] MEDS: PROPOFOL DRIP (ICU) 100 ML IV SCH ×2 (00:53→06:33)
[2022-08-26 02:22] VITALS: BP 118/59
[2022-08-26 03:30] LABS: ABG BASE EXCESS -4.5 MMOL/L (-2.5-2.5); ABG OXYGEN SATURATION 97 % (94-100); ABG PCO2 32 MMHG (35-45); ABG PO2 78 MMHG (79-93); ABG TCO2 20.4 MMOL/L (21.0-31.0); ALLENS TEST YES-POS
[2022-08-26 03:31] LABS: INSPIRED O2 30%; PATIENT TEMP 37.1; VENTILATOR YES
[2022-08-26 03:33] LABS: BASOPHILS # (AUTO) 0.1 10^3/uL (0.0-0.1); BASOPHILS % (AUTO) 0 % (0-10); EOSINOPHILS # (AUTO) 0.4 10^3/uL (0.0-0.3); EOSINOPHILS % (AUTO) 2 % (0-10); HEMATOCRIT 24 % (35-52); HEMOGLOBIN 8.1 g/dL (11.5-16.0); LYMPHOCYTES # (AUTO) 0.9 10^3/uL (1.0-4.0); LYMPHOCYTES % (AUTO) 4 % (12-44); MEAN CORPUSCULAR HEMOGLOBIN 24 pg (25-34); MEAN CORPUSCULAR HGB CONC 34 g/dL (32-36); MEAN CORPUSCULAR VOLUME 70 fL (80-99); MEAN PLATELET VOLUME 10.1 fL (9.0-12.2); MONOCYTES # (AUTO) 1.2 10^3/uL (0.0-1.0); MONOCYTES % (AUTO) 6 % (0-12); NEUTROPHILS # (AUTO) 18.2 10^3/uL (1.8-7.8); NEUTROPHILS % (AUTO) 84 % (42-75); PLATELET COUNT 186 10^3/uL (130-400); WHITE BLOOD COUNT 21.7 10^3/uL (4.3-11.0)
[2022-08-26 03:52] LABS: POTASSIUM 3.7 MMOL/L (3.6-5.0)
[2022-08-26 03:53] LABS: CALCIUM 8.2 MG/DL (8.5-10.1)
[2022-08-26 03:57] LABS: PHOSPHORUS 3.3 MG/DL (2.3-4.7)
[2022-08-26 03:58] LABS: CREATININE SERUM 2.71 MG/DL (0.60-1.30)
[2022-08-26] MEDS: POTASSIUM CL 10MEQ/50ML IVPB 50 ML IV SCH (04:28)
[2022-08-26] MEDS: MAGNESIUM 1 GM/100 ML IVPB 100 ML IV SCH (04:28)
[2022-08-26] MEDS: KCL 20 MEQ TAB (K-DUR) PO SCH (04:28)
[2022-08-26] MEDS: ACETAMINOPHEN 500 MG TAB (TYLENOL) PO SCH ×3 (04:29→22:30)
[2022-08-26] MEDS: RT-ALBUTEROL SULF 2.5 MG/3 ML PRE-MIX VIAL INH SCH ×2 (06:38→21:35)
[2022-08-26 06:39] VITALS: BP 112/64
--- NOTE | 2022-08-26 07:14 | Physical Therapy Progress Note ---
Therapy Progress Note Due to transfer to ICU and currently sedated and intubated, PT will require new orders when patient is deemed medically stable and able to actively participate with skilled PT. Until then, PT will remove patient from current schedule. BRIGETTE FRANCISCO PT Aug 26, 2022 07:14
--- NOTE | 2022-08-26 07:25 | Progress Note - Surgery ---
DARRON HIGGINS 08/26/22 0725: Subjective Date Seen by a Provider: Aug 26, 2022 Time Seen by a Provider: 07:00 Subjective/Events-last exam Patient sedated for mechanical intubation. RICCARDO bag draining serous fluid. Urine output 375 mL from 7:00pm to 7:00 am (compared to 500 mL the previous night. Focused Exam Lactate Level 08/23/22 08:20: Lactic Acid Level 2.78*H Objective Exam Vital Signs Date Time Temp Pulse Resp B/P (MAP) Pulse Ox O2 Delivery O2 Flow Rate FiO2 08/26/22 06:47 98 119/55 08/26/22 06:39 97 22 94 30 08/26/22 06:33 89 135/67 08/26/22 06:00 89 22 135/67 (89) 97 Mechanical Ventilator 30.00 08/26/22 05:00 91 21 119/58 (78) 97 Mechanical Ventilator 30.00 08/26/22 04:53 94 111/56 08/26/22 04:21 94 111/56 08/26/22 04:00 98 Mechanical Ventilator 30 08/26/22 04:00 93 21 111/57 (75) 97 Mechanical Ventilator 30.00 08/26/22 03:00 96 23 128/64 (85) 97 Mechanical Ventilator 30.00 08/26/22 02:22 98 22 95 30 08/26/22 02:00 98 32 123/61 (81) 95 Mechanical Ventilator 30.00 08/26/22 01:00 100 08/26/22 01:00 98 21 136/57 (83) 97 Mechanical Ventilator 30.00 08/26/22 00:53 99 115/57 08/26/22 00:25 36.9 08/26/22 00:00 96 21 123/56 (78) 96 Mechanical Ventilator 30.00 08/25/22 23:59 97 Mechanical Ventilator 30 08/25/22 23:42 99 115/57 08/25/22 23:00 99 21 115/57 (76) 96 Mechanical Ventilator 30.00 08/25/22 22:10 102 22 97 30 08/25/22 22:00 100 21 122/56 (78) 96 Mechanical Ventilator 30.00 08/25/22 21:00 90 22 128/58 (81) 98 Mechanical Ventilator 30.00 08/25/22 20:20 36.9 94 22 116/63 96 Mechanical Ventilator 30 08/25/22 20:00 96 Mechanical Ventilator 30 08/25/22 20:00 99 21 118/71 (87) 95 Mechanical Ventilator 30.00 08/25/22 20:00 98 83/43 08/25/22 19:59 36.7 08/25/22 19:53 101 84/41 08/25/22 19:30 103 101/47 08/25/22 19:25 37.1 103 22 101/47 (65) 93 Mechanical Ventilator 30.00 08/25/22 19:00 103 08/25/22 18:55 102 22 94 30 08/25/22 18:35 37.3 105 21 98/45 Mechanical Ventilator 30 08/25/22 18:30 37.3 105 22 97/46 94 Mechanical Ventilator 30 08/25/22 18:24 37.0 105 21 95/46 94 Mechanical Ventilator 30 08/25/22 18:19 37.2 105 21 99/42 94 Mechanical Ventilator 30 08/25/22 18:00 107 21 88/42 (57) 94 Mechanical Ventilator 30.00 08/25/22 17:00 104 21 98/50 (66) 94 Mechanical Ventilator 30.00 08/25/22 16:40 98 93/59 08/25/22 16:00 98 22 93/59 (70) 94 Mechanical Ventilator 30.00 08/25/22 16:00 94 Mechanical Ventilator 30 08/25/22 15:45 36.9 08/25/22 15:00 96 21 100/64 (76) 93 Mechanical Ventilator 30.00 08/25/22 14:00 96 22 96/45 (62) 95 Mechanical Ventilator 30.00 08/25/22 14:00 95 22 95 30 08/25/22 13:00 98 22 103/52 (69) 94 Mechanical Ventilator 30.00 08/25/22 13:00 98 08/25/22 12:40 98 106/64 08/25/22 12:00 94 Mechanical Ventilator 30 08/25/22 12:00 92 21 106/51 (69) 98 Mechanical Ventilator 30.00 08/25/22 11:41 36.8 08/25/22 11:38 36.9 93 22 104/48 99 Mechanical Ventilator 30 08/25/22 11:33 36.8 94 22 104/47 98 Mechanical Ventilator 30 08/25/22 11:27 36.6 93 22 109/52 99 Mechanical Ventilator 08/25/22 11:22 36.8 93 22 105/52 99 Mechanical Ventilator 30 08/25/22 11:17 98 106/64 08/25/22 11:00 93 21 108/53 (71) 99 Mechanical Ventilator 30.00 08/25/22 10:13 95 22 100 30 08/25/22 10:00 95 21 116/54 (74) 97 Mechanical Ventilator 30.00 08/25/22 09:00 96 22 109/50 (69) 99 Mechanical Ventilator 30.00 08/25/22 08:35 98 108/51 08/25/22 08:00 104 21 121/55 (77) 92 Mechanical Ventilator 30.00 08/25/22 08:00 94 Mechanical Ventilator 30 08/25/22 07:55 97 126/63 08/25/22 07:48 36.0 I & O 08/26/22 07:00 Intake Total 1000 ml Output Total 1340 ml Balance -340 ml Capillary Refill : Less Than 3 Seconds General Appearance: Chronically ill, Other (intubated and sedated) HEENT: Other (ET and NGT in place) Neck: Supple; No Thyromegaly Respiratory: Crackles (Bilateral lower lobes), Other (on mechanical ventilation) Cardiovascular: No Murmur, Tachycardia, Other (normal rhythm) Peripheral Pulses: 2+ Radial Pulses (R), 2+ Radial Pulses (L) Gastrointestinal: soft, abnormal bowel sounds (hypoactive), distended (mildly), other (incision still packed with Betadine soaked kerlix, some serosanginuous fluid along incision, serous fluid in drains) Extremity: Pedal Edema (bilateral, improving), Other (Compression cuffs on lower extremity bilaterally) Neurologic/Psychiatric: Other (intubated and sedated currently) Skin: Normal Color Lymphatic: No Adenopathy Results Lab Laboratory Tests 08/25/22 11:33: Glucometer 90 08/25/22 16:34: Hemoglobin 6.9*L, Hematocrit 21L 08/25/22 18:05: Glucometer 71 08/25/22 23:30: Hemoglobin 8.0L, Hematocrit 24L 08/26/22 00:11: Glucometer 69L 08/26/22 03:10: White Blood Count 21.7H, Red Blood Count 3.38L, Hemoglobin 8.1L, Hematocrit 24L, Mean Corpuscular Volume 70L, Mean Corpuscular Hemoglobin 24L, Mean Corpuscular Hemoglobin Concent 34, Red Cell Distribution Width 22.2H, Platelet Count 186, Mean Platelet Volume 10.1, Immature Granulocyte % (Auto) 4, Neutrophils (%) (Auto) 84H, Lymphocytes (%) (Auto) 4L, Monocytes (%) (Auto) 6, Eosinophils (%) (Auto) 2, Basophils (%) (Auto) 0, Neutrophils # (Auto) 18.2H, Lymphocytes # (Au to) 0.9L, Monocytes # (Auto) 1.2H, Eosinophils # (Auto) 0.4H, Basophils # (Auto) 0.1, Immature Granulocyte # (Auto) 0.9H, Sodium Level 133L, Potassium Level 3.7, Chloride Level 102, Carbon Dioxide Level 17L, Anion Gap 14, Blood Urea Nitrogen 29H, Creatinine 2.71H, Estimat Glomerular Filtration Rate 18, BUN/Creatinine Ratio 11, Glucose Level 78, Calcium Level 8.2L, Phosphorus Level 3.3, Magnesium Level 2.0 08/26/22 03:25: Blood Gas Puncture Site RRAD, Blood Gas Patient Temperature 37.1, Arterial Blood pH 7.40, Arterial Blood Partial Pressure CO2 32L, Arterial Blood Partial Pressure O2 78L, Arterial Blood HCO3 19L, Arterial Blood Total CO2 20.4L, Arterial Blood Oxygen Saturation 97, Arterial Blood Base Excess -4.5L, Aiden Test YES-POS, Blood Gas Ventilator Setting YES, Blood Gas Inspired Oxygen 30% Microbiology 08/23/22 Gram Stain - Final, Resulted 08/23/22 Sputum Culture - Preliminary, Resulted Pseudomonas aeruginosa 08/22/22 Blood Culture - Final, Complete Streptococcus mitis group See Comments 08/22/22 Urine Culture - Final, Complete NO GROWTH Assessment/Plan Assessment/Plan Assessment/Plan Sepsis/Hypotension/Metabolic acidosis - due to anastomotic Leak - streptococcus viridins isolated in blood culture (08/23) - normotensive as of 08/24 still on pressors - pH in normal range since 08/25 - continue IV fluids - continue gentamicin and clindamycin Acute kidney injury - likely related to sepsis - Cr continuing to trend down (2.71 today) Anemia - Hb stable 8.1 today s/p 3 units of blood - continue to monitor S/P colon resection - adenocarcinoma of ascending colon - right hemicolectomy on 08/18 - repeat colon resection on 08/23 Pt is fluid overloaded now, this usually takes about 3 days after surgery for pt to diurese; may take longer if renal function doesn't come back. Hopefully the RA is only due to sepsis and now that the problem has been fixed they will get better. Wean from vent as tolerated. KOURTNEY ARAGON DO 08/26/22 0948: Subjective Time Seen by a Provider: 08:38 Subjective/Events-last exam Pt seen and examined, intubated and sedated Objective Exam General Appearance: Chronically ill, Other (intubated and sedated) HEENT: Other (ET tube in place) Respiratory: Crackles (Bilateral lower lobes), Other (on mechanical ventilation) Cardiovascular: Regular Rate, Rhythm, No Murmur Gastrointestinal: soft, abnormal bowel sounds (hypoactive), distended (mildly), other (Wound VAC in place, some serosanginuous fluid along incision, serous fluid in drains) Extremity: Pedal Edema (bilateral, improving), Other (Compression cuffs on lower extremity bilaterally) Neurologic/Psychiatric: Other (intubated and sedated currently) Skin: Pallor Assessment/Plan Assessment/Plan Assessment/Plan Sepsis/Hypotension/Metabolic acidosis - improved - streptococcus viridins isolated in blood culture (08/23) - normotensive and now off pressors - pH in normal range since 08/25 - continue IV fluids - continue gentamicin and clindamycin Acute kidney injury - improving - likely related to sepsis - Cr continuing to trend down (2.71 today) Anemia - Hb stable 8.1 today s/p 3 units of blood - continue to monitor S/P colon resection - adenocarcinoma of ascending colon - right hemicolectomy on 08/18 - repeat colon resection on 08/23 Pt is fluid overloaded now, this usually takes about 3 days after surgery for pt to diurese; may take longer if renal function doesn't come back. Hopefully the RA is only due to sepsis and now that the problem has been fixed they will get better. Wean from vent as tolerated. Supervisory-Addendum Brief Verification & Attestation Participated in pt care: history, MDM, physical Personally performed: exam, history, MDM, supervision of care Care discussed with: Medical Student Procedures: n/a Verification and Attestation of Medical Student E/M Service A medical student performed and documented this service. I then reviewed and verified all information documented by the medical student and made modif ications to such information, when appropriate. I personally performed a physical exam, medical decision making and then discussed any differences between the notes and made revisions as necessary to create one note. Kourtney Aragon , 08/26/22 , 09:48 DARRON HIGGINS Aug 26, 2022 07:25 KOURTNEY ARAGON DO Aug 26, 2022 09:48
--- NOTE | 2022-08-26 07:48 | Cardiology Progress Note ---
Subjective Date Seen by Provider: Aug 26, 2022 Time Seen by Provider: 07:47 Subjective/Events-last exam Patient is sedated and intubated. Review of Systems General: Other (Unable to provide review of system) Focused Exam Lactate Level 08/23/22 08:20: Lactic Acid Level 2.78*H Objective-Cardiology Exam Last Set of Vital Signs Vital Signs 08/26/22 08/26/22 08/26/22 08/26/22 08/26/22 00:25 06:00 06:39 06:47 07:00 Temp 36.9 Pulse 98 Resp 22 B/P (MAP) 119/55 Pulse Ox 94 O2 Delivery Mechanical Ventilator O2 Flow Rate 30.00 FiO2 30 I&O Intake and Output 08/26/22 00:00 Intake Total 800 ml Output Total 1305 ml Balance -505 ml Intake Oral 0 ml IV Total 700 ml Other 100 ml Output Urine Total 760 ml Drainage Total 545 ml # Bowel Movements 1 General: Other (intubated) Lungs: Normal Air Movement, Other (ronchi) Heart: Other (tachycardic) Abdomen: Normal Bowel Sounds, Soft Extremities: Other (2+ pitting edema) Skin: No Rashes, No Significant Lesion Neuro: Other (Sedated and intubated) Psych/Mental Status: Other (Sedated and intubated) Results Lab Laboratory Tests 08/25/22 16:34 08/25/22 23:30 08/26/22 03:10 A/P-Cardiology Admission Diagnosis Septic shock Hypotension Adenocardinoma Assessment/Plan Adenocarinoma of ascending colon, s/p partial colon and intraperitoneal mass resection Status post acute abdomen on August 23, 2022 underwent exploratory laparotomy, anastomosis leak was noted Currently having a drain, managed by surgical team Septic shock, hypotensive, tachycardic, respiratory failure Receiving IV fluid Receiving norepinephrine Continue with supportive care Ventilator dependent respiratory failure, sedated and intubated Managed by medical team Sinus tachycardia secondary to sepsis Continue with supportive care History of hypertension Currently hypotensive, maintained on IV fluid and Levophed Continue to monitor Nonobstructive carotid artery stenosis per carotid duplex done Jul 2022. NORMA DIAMOND MD Aug 26, 2022 07:48
[2022-08-26] MEDS: levETIRAcetam 1000 mg/NS 100ml IVPB IV SCH ×2 (08:20→21:11)
[2022-08-26] MEDS: PANTOPRAZOLE 40 MG (PROTONIX) VIAL IVP SCH (08:20)
[2022-08-26] MEDS: VITAMIN D3 25 MCG (1,000 UNITS) TABLET PO SCH (08:23)
[2022-08-26] MEDS: risperiDONE 0.5 MG (RisperDAL) TABLET PO SCH ×2 (08:23→20:41)
[2022-08-26] MEDS: OXYBUTYNIN (DITROPAN) 5 MG TAB PO SCH ×2 (08:23→20:41)
[2022-08-26] MEDS: lisINopril 20 MG (PRINIVIL) TABLET PO SCH (08:24)
--- NOTE | 2022-08-26 09:20 | Progress Note ---
LINDA DORSEY MD 08/26/22 0920: Progress Note Assessment/Plan Assessment/Plan Sepsis/Hypotension/Metabolic acidosis - due to anastomotic Leak - streptococcus viridins isolated in blood culture (08/23) - normotensive as of 08/24 still on pressors - pH in normal range since 08/25 - continue IV fluids - continue gentamicin and clindamycin Acute kidney injury - likely related to sepsis - Cr continuing to trend down (2.71 today) Anemia - Hb stable 8.1 today s/p 3 units of blood - continue to monitor S/P colon resection - adenocarcinoma of ascending colon - right hemicolectomy on 08/18 - repeat colon resection on 08/23 Pt is fluid overloaded now, this usually takes about 3 days after surgery for pt to diurese; may take longer if renal function doesn't come back. Hopefully the RA is only due to sepsis and now that the problem has been fixed they will get better. Wean from vent as tolerated. Vitals Last set of Vitals Signs Vital Signs Date Time Temp Pulse Resp B/P (MAP) Pulse Ox O2 Delivery O2 Flow Rate FiO2 08/26/22 08:00 90 21 95/49 (64) 95 Mechanical Ventilator 30.00 08/26/22 08:00 36.5 08/26/22 06:39 30 I&O I&O Intake and Output 08/26/22 00:00 Intake Total 800 ml Output Total 1305 ml Balance -505 ml Intake Oral 0 ml IV Total 700 ml Other 100 ml Output Urine Total 760 ml Drainage Total 545 ml # Bowel Movements 1 Labs Laboratory Tests 08/25/22 11:33: Glucometer 90 08/25/22 16:34: Hemoglobin 6.9*L, Hematocrit 21L 08/25/22 18:05: Glucometer 71 08/25/22 23:30: Hemoglobin 8.0L, Hematocrit 24L 08/26/22 00:11: Glucometer 69L 08/26/22 03:10: White Blood Count 21.7H, Red Blood Count 3.38L, Hemoglobin 8.1L, Hematocrit 24L, Mean Corpuscular Volume 70L, Mean Corpuscular Hemoglobin 24L, Mean Corpuscular Hemoglobin Concent 34, Red Cell Distribution Width 22.2H, Platelet Count 186, Mean Platelet Volume 10.1, Immature Granulocyte % (Auto) 4, Neutrophils (%) (Auto) 84H, Lymphocytes (%) (Auto) 4L, Monocytes (%) (Auto) 6, Eosinophils (%) (Auto) 2, Basophils (%) (Auto) 0, Neutrophils # (Auto) 18.2H, Lymphocytes # (A uto) 0.9L, Monocytes # (Auto) 1.2H, Eosinophils # (Auto) 0.4H, Basophils # ( Auto) 0.1, Immature Granulocyte # (Auto) 0.9H, Sodium Level 133L, Potassium Level 3.7, Chloride Level 102, Carbon Dioxide Level 17L, Anion Gap 14, Blood Urea Nitrogen 29H, Creatinine 2.71H, Estimat Glomerular Filtration Rate 18, BUN/Creatinine Ratio 11, Glucose Level 78, Calcium Level 8.2L, Phosphorus Level 3.3, Magnesium Level 2.0 08/26/22 03:25: Blood Gas Puncture Site RRAD, Blood Gas Patient Temperature 37.1, Arterial Blood pH 7.40, Arterial Blood Partial Pressure CO2 32L, Arterial Blood Partial Pressure O2 78L, Arterial Blood HCO3 19L, Arterial Blood Total CO2 20.4L, Arterial Blood Oxygen Saturation 97, Arterial Blood Base Excess -4.5L, Aiden Test YES-POS, Blood Gas Ventilator Setting YES, Blood Gas Inspired Oxygen 30% Microbiology 08/23/22 Gram Stain - Final, Resulted 08/23/22 Sputum Culture - Preliminary, Resulted Pseudomonas aeruginosa 08/22/22 Blood Culture - Final, Complete Streptococcus mitis group See Comments 08/22/22 Urine Culture - Final, Complete NO GROWTH 09/29/22 0849: LINDA DORSEY MD Aug 26, 2022 09:20 Sep 29, 2022 08:49
[2022-08-26] MEDS: MEROPENEM 500 MG/NS 100 ML IVPB IV SCH ×4 (10:11→21:18)
[2022-08-26 10:34] VITALS: BP 101/54
--- NOTE | 2022-08-26 10:37 | Tele-ICU Progress Note ---
Subjective Date Seen by a Provider: Aug 26, 2022 Time Seen by a Provider: 10:37 Subjective/Events-last exam (Tele-ICU Physician , Progress Note ) Service provided via interactive audio and video telecommunications E-CARE system to a patient admitted to ICU bed in [facility]. Patient is seen today due to persistent need of ICU care Available chart/ vitals / labs / Images reviewed Video assessment done using teleICU camera, rest of exam as per RN Discussed with RN Events overnight : Afebrile hemodynamically stable Respiratory - 40 % I/O = pos VENT SETTINGS and ABG reviewed CANDIDATE for SBTreviewed possible contraindications including Cardiovascular Stability /Sedation Score / FI02/PEEP / ABG / CXR/ secretions Sedation, discussed with RN, RASS- 2 on propofol 30 , morphine prn Drips: off IV Pressors- OFF Hospital course: (08/18) 76F s/p Lap R hemicolectomy and excision of intraperitoneal mass. (08/22) to ICU with hypotension, tachycardia, and increased pain, r/o Intra- abdominal process - ?Anastomosis leak. CTA = Neg P Embolus. CT A/P = ?Asp PNA. (08/23) OR-Diagnostic Laparoscopy, laparotomy with colon resection and washout INTUBATED 08/24 - AC 16 40 % levo , added vaso 1 u PRBC transfused ( hb 6.6) , CR 3.4 - hydration and lasix x1 ( anuric ) renal consult , CVP 12 , Echo ef 55% 08/25 - AC 22 450 30% +6 , Cr 3 , Hb 6.6 - 2uPRBC , wound vac placed 08/25 , OFF LEVO , vaso 08/26- 30 % + 5 OFF levo A/P Acute hypoxic respiratory failure secondary to possible underlying sepsis, pneumonia and bibasilar atelectasis- INTUBATED 08/20 - AC 22 450 30% +6 - minimal secretions - try to decrease sedation , CANDIDAT for SBT, but not planning for liberation from vent today Shock -?secondary to possible sepsis -pressors OFF 08/26 -ECHO 08/09/22 - EF 55% , RVSP 50 mmHg , CVP12 Sepsis ( off -clindamycin and gentamicin) - sputum + for PSA - changed to merrem 08/24 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 - as per sx , wound vac placed 08/25 RA - Cr to 3 on 08/24 - renal consulted - follow with hydration , albumin , transfusion Volume overload - RVSP 50 mmHg , CVP12 - Cr improving , negative volume status now , will initiate diuresis soon Anemia (Perioperative anemia hb 9 - no obvious bleeding -s/p transfusion 1 u PRBC 08/24 , and 2 u PRBC 08/25 Hyponatremia - mild , follow Pulm HTN - ECHO 08/09/22 RVSP 50 mmHg - fluid status as per renal now - follow Nutrition - as per Sx , no parental feeding post op 08/23--> Lines : L IJ 08/22 (Central Line Necessity Reviewed) Phillips: + OG: Nutrition: npo - as per SX Analgesia: Anxiety/ delirium VTE Prophylaxis: heparin sq if no active bleeding Stress Ulcer Prophylaxis: ppi Plans in collaboration with bedside consultants and IM MDs. Discussed with RN to reach out if any questions or concerns A total of 34 minutes of critical care time was devoted to this patient today, required to treat and/or prevent further deterioration of critical care condition ( as above ) . Sepsis Event Evaluation Height, Weight, BMI Height: 5'4.00" Weight: 193lbs. 3.0oz. [id number]; 32.11 BMI Method: Exam Exam Patient acknowledged, consented, and participated in this virtual visit which was conducted using real time audio/video Vital Signs Date Time Temp Pulse Resp B/P (MAP) Pulse Ox O2 Delivery O2 Flow Rate FiO2 08/26/22 09:00 93 21 92/51 (65) 95 Mechanical Ventilator 30.00 08/26/22 08:00 90 21 95/49 (64) 95 Mechanical Ventilator 30.00 08/26/22 08:00 36.5 08/26/22 07:00 98 08/26/22 07:00 98 21 96/45 (62) 96 Mechanical Ventilator 30.00 08/26/22 06:47 98 119/55 08/26/22 06:39 97 22 94 30 08/26/22 06:33 89 135/67 08/26/22 06:00 89 22 135/67 (89) 97 Mechanical Ventilator 30.00 08/26/22 05:00 91 21 119/58 (78) 97 Mechanical Ventilator 30.00 08/26/22 04:53 94 111/56 3/2/23 04:21 94 111/56 08/26/22 04:00 98 Mechanical Ventilator 30 08/26/22 04:00 93 21 111/57 (75) 97 Mechanical Ventilator 30.00 08/26/22 03:00 96 23 128/64 (85) 97 Mechanical Ventilator 30.00 08/26/22 02:22 98 22 95 30 08/26/22 02:00 98 32 123/61 (81) 95 Mechanical Ventilator 30.00 08/26/22 01:00 100 08/26/22 01:00 98 21 136/57 (83) 97 Mechanical Ventilator 30.00 08/26/22 00:53 99 115/57 08/26/22 00:25 36.9 08/26/22 00:00 96 21 123/56 (78) 96 Mechanical Ventilator 30.00 08/25/22 23:59 97 Mechanical Ventilator 30 08/25/22 23:42 99 115/57 08/25/22 23:00 99 21 115/57 (76) 96 Mechanical Ventilator 30.00 08/25/22 22:10 102 22 97 30 08/25/22 22:00 100 21 122/56 (78) 96 Mechanical Ventilator 30.00 08/25/22 21:00 90 22 128/58 (81) 98 Mechanical Ventilator 30.00 08/25/22 20:20 36.9 94 22 116/63 96 Mechanical Ventilator 30 08/25/22 20:00 96 Mechanical Ventilator 30 08/25/22 20:00 99 21 118/71 (87) 95 Mechanical Ventilator 30.00 08/25/22 20:00 98 83/43 08/25/22 19:59 36.7 08/25/22 19:53 101 84/41 08/25/22 19:30 103 101/47 08/25/22 19:25 37.1 103 22 101/47 (65) 93 Mechanical Ventilator 30.00 08/25/22 19:00 103 08/25/22 18:55 102 22 94 30 08/25/22 18:35 37.3 105 21 98/45 Mechanical Ventilator 30 08/25/22 18:30 37.3 105 22 97/46 94 Mechanical Ventilator 30 08/25/22 18:24 37.0 105 21 95/46 94 Mechanical Ventilator 30 08/25/22 18:19 37.2 105 21 99/42 94 Mechanical Ventilator 30 08/25/22 18:00 107 21 88/42 (57) 94 Mechanical Ventilator 30.00 08/25/22 17:00 104 21 98/50 (66) 94 Mechanical Ventilator 30.00 08/25/22 16:40 98 93/59 08/25/22 16:00 98 22 93/59 (70) 94 Mechanical Ventilator 30.00 08/25/22 16:00 94 Mechanical Ventilator 30 08/25/22 15:45 36.9 08/25/22 15:00 96 21 100/64 (76) 93 Mechanical Ventilator 30.00 08/25/22 14:00 96 22 96/45 (62) 95 Mechanical Ventilator 30.00 08/25/22 14:00 95 22 95 30 08/25/22 13:00 98 22 103/52 (69) 94 Mechanical Ventilator 30.00 08/25/22 13:00 98 08/25/22 12:40 98 106/64 08/25/22 12:00 94 Mechanical Ventilator 30 08/25/22 12:00 92 21 106/51 (69) 98 Mechanical Ventilator 30.00 08/25/22 11:41 36.8 08/25/22 11:38 36.9 93 22 104/48 99 Mechanical Ventilator 30 08/25/22 11:33 36.8 94 22 104/47 98 Mechanical Ventilator 30 08/25/22 11:27 36.6 93 22 109/52 99 Mechanical Ventilator 08/25/22 11:22 36.8 93 22 105/52 99 Mechanical Ventilator 30 08/25/22 11:17 98 106/64 08/25/22 11:00 93 21 108/53 (71) 99 Mechanical Ventilator 30.00 I & O 08/26/22 07:00 Intake Total 1000 ml Output Total 1340 ml Balance -340 ml Height & Weight Height: 5'4.00" Weight: 193lbs. 3.0oz. [id number]; 32.11 BMI Method: General Appearance: Chronically ill, Other (intubated and sedated) HEENT: Other (ET tube in place) Neck: Supple; No Thyromegaly Respiratory: Crackles (Bilateral lower lobes), Other (on mechanical ventilation) Cardiovascular: Regular Rate, Rhythm, No Murmur Capillary Refill: Less Than 3 Seconds Peripheral Pulses: 2+ Radial Pulses (R), 2+ Radial Pulses (L) Gastrointestinal: soft, abnormal bowel sounds (hypoactive), distended (mildly), other (Wound VAC in place, some serosanginuous fluid along incision, serous fluid in drains) Extremity: Pedal Edema (bilateral, improving), Other (Compression cuffs on lower extremity bilaterally) Neurologic/Psychiatric: Other (intubated and sedated currently) Skin: Pallor Lymphatic: No Adenopathy Results Lab Laboratory Tests 08/24/22 11:55 08/24/22 16:50 08/25/22 04:55 08/25/22 16:34 08/25/22 23:30 08/26/22 03:10 Assessment/Plan Assessment/Plan 1 WALI HOGAN MD Aug 26, 2022 10:37
[2022-08-26] MEDS: NOREPINEPHRINE 8 MG/250 ML 250 ML IV SCH (12:34)
[2022-08-26 14:12] VITALS: BP 136/58
--- NOTE | 2022-08-26 14:39 | Progress Note - Hospitalist ---
KAYA SANCHES 08/26/22 1439: Subjective HPI/CC On Admission Date Seen by Provider: Aug 26, 2022 Time Seen by Provider: 09:30 Pt is sedated on propofol and on vent today. Pressors on standby at visit with maps in 60s trending up, propofol paused as well. Granddaughter at bedside and confirms hx of seizure, though last was in 2016. Very fluid overloaded with weight gain of 32 kg since 08/18/22. Nephro consulted. No major overnight events. Objective Exam Vital Signs Vital Signs Date Time Temp Pulse Resp B/P (MAP) Pulse Ox O2 Delivery O2 Flow Rate FiO2 08/26/22 14:12 103 20 94 30 08/26/22 12:00 112/87 (95) Mechanical Ventilator 30.00 08/26/22 12:00 36.7 Capillary Refill : Less Than 3 Seconds General Appearance: Obese, Other (on vent.) HEENT: Moist Mucous Membranes Neck: Supple; No JVD Respiratory: Lungs Clear, Other (on vent, equal chest expansion) Cardiovascular: Regular Rate, Rhythm, No JVD, No Murmur, Normal Peripheral Pulses Gastrointestinal: Soft, Distended Extremity: Pedal Edema, Swelling, Other (swelling in all extremities) Neurologic/Psychiatric: No Facial Droop; Other (occulocephalic mildly present, PERRL.) Skin: Normal Color Results/Procedures Lab Laboratory Tests 08/25/22 16:34 08/25/22 23:30 08/26/22 03:10 Patient resulted labs reviewed. 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 -08/23 anastomotic leak noted -drain placed by surgery, monitoring Septic shock AHRF Pneumonia -NorE, vaso paused, MAPs in 60s trending up -on vent with propofol for sedation, just paused at time of exam -cxr reviewed -blood cx grew nml skin edward x1 -sputum culture obtained from ET tube grew p aeru, on meropenem -awaiting susceptibility RA Fluid Overload -Rise to >3 creatinine, trending down -30kg weight gain since 08/18 -very edematous on exam -having adequate urine output -nephro on board Seizure d/o -on IV keppra, continue Hx of HTN -monitor Dispo: very fluid overloaded, can consider diuresis if urine outpt inadequate. off pressors and sedation this afternoon. Can try SBT on vent tomorrow. Critical Care: Critically Ill Patient CLARISSA FREDERICK DO 08/27/22 0500: Supervisory-Addendum Brief Verification & Attestation Participated in pt care: history, MDM, physical Personally performed: exam, history, MDM, supervision of care Care discussed with: Medical Student Procedures: n/a Results interpretation: Verified all documentation Verification and Attestation of Medical Student E/M Service A medical student performed and documented this service in my presence. I reviewed and verified all information documented by the medical student and made modifications to such information, when appropriate. I personally performed the physical exam and medical decision making. Clarissa Frederick, Aug 27, 2022,05:00 KAYA SANCHES Aug 26, 2022 14:39 CLARISSA FREDERICK DO Aug 27, 2022 05:00
[2022-08-26 18:40] VITALS: BP 123/59
[2022-08-26] MEDS: PRAMIPEXOLE 0.125 MG (MIRAPEX) TABLET PO SCH (20:41)
[2022-08-26] MEDS: DONEPEZIL 10 MG (ARICEPT) TAB PO SCH (20:41)
[2022-08-26 21:35] VITALS: BP 134/70
[2022-08-27 02:27] VITALS: BP 129/93
[2022-08-27] MEDS: NOREPINEPHRINE 8 MG/250 ML 250 ML IV SCH ×2 (04:12→19:43)
[2022-08-27 04:41] LABS: BASOPHILS % (AUTO) 0 % (0-10); LYMPHOCYTES % (AUTO) 5 % (12-44)
[2022-08-27 04:42] LABS: BASOPHILS # (AUTO) 0.1 10^3/uL (0.0-0.1); EOSINOPHILS # (AUTO) 0.3 10^3/uL (0.0-0.3); EOSINOPHILS % (AUTO) 1 % (0-10); HEMATOCRIT 25 % (35-52); HEMOGLOBIN 8.4 g/dL (11.5-16.0); MEAN CORPUSCULAR HEMOGLOBIN 24 pg (25-34); MEAN CORPUSCULAR HGB CONC 34 g/dL (32-36); MEAN CORPUSCULAR VOLUME 71 fL (80-99); MEAN PLATELET VOLUME 10.4 fL (9.0-12.2); MONOCYTES # (AUTO) 1.6 10^3/uL (0.0-1.0); MONOCYTES % (AUTO) 7 % (0-12); NEUTROPHILS # (AUTO) 17.1 10^3/uL (1.8-7.8); NEUTROPHILS % (AUTO) 81 % (42-75); PLATELET COUNT 240 10^3/uL (130-400); WHITE BLOOD COUNT 21.2 10^3/uL (4.3-11.0)
[2022-08-27 05:04] LABS: CALCIUM 8.4 MG/DL (8.5-10.1); CREATININE SERUM 1.82 MG/DL (0.60-1.30); PHOSPHORUS 3.5 MG/DL (2.3-4.7); POTASSIUM 3.6 MMOL/L (3.6-5.0)
[2022-08-27 05:06] LABS: ALBUMIN 2.4 GM/DL (3.2-4.5); BILIRUBIN,DIRECT 1.3 MG/DL (0.0-0.3); BILIRUBIN,INDIRECT 0.5 MG/DL; BILIRUBIN,TOTAL 1.8 MG/DL (0.1-1.0); TOTAL PROTEIN 4.4 GM/DL (6.4-8.2)
[2022-08-27 05:07] LABS: SMEAR SCAN COMMENT YES
[2022-08-27] MEDS: KCL 20 MEQ TAB (K-DUR) PO SCH (05:14)
[2022-08-27] MEDS: MAGNESIUM 1 GM/100 ML IVPB 100 ML IV SCH (05:14)
[2022-08-27] MEDS: POTASSIUM CL 10MEQ/50ML IVPB 50 ML IV SCH ×3 (05:21→07:39)
[2022-08-27] MEDS: inSUlin ASPART (NovoLOG) 1 UNIT/0.01 ML (CHARGE PER UNIT) SC SCH ×4 (06:07→23:44)
[2022-08-27] MEDS: PROPOFOL DRIP (ICU) 100 ML IV SCH ×3 (06:17→22:08)
[2022-08-27] MEDS: ACETAMINOPHEN 500 MG TAB (TYLENOL) PO SCH ×3 (06:18→22:07)
[2022-08-27 07:07] VITALS: BP 134/70
--- NOTE | 2022-08-27 07:12 | Progress Note - Surgery ---
DARRON HIGGINS 08/27/22 0712: Subjective Date Seen by a Provider: Aug 27, 2022 Time Seen by a Provider: 07:00 Subjective/Events-last exam Patient intubated for mechanical ventilation. She has been off propofal since last evening. She was somnolent on exam but responsive to questions on commands (shook head no when asked about abdominal pain, squeezed her hands when instructed). RICCARDO bag is draining serous fluid. Per nursing, she has a small BM yesterday. Urine output from 7pm - 7am was was 825 mL. Per E-ICU notes and nursing, E-ICU did not feel that patient was responsive or strong yesterday to enough to attempt an SBT. They plan to attempt an SBT today. Review of Systems Gastrointestinal: No: Nausea, Vomiting, Abdominal Pain Objective Exam Vital Signs Date Time Temp Pulse Resp B/P (MAP) Pulse Ox O2 Delivery O2 Flow Rate FiO2 08/27/22 06:00 101 19 136/68 (92) 97 Mechanical Ventilator 30.00 08/27/22 05:00 100 18 145/61 (86) 98 08/27/22 04:05 Mechanical Ventilator 30 08/27/22 04:00 103 19 147/67 (96) 97 08/27/22 03:36 37.0 08/27/22 03:00 105 18 132/72 (92) 97 08/27/22 02:27 108 22 97 30 08/27/22 02:00 113 21 129/93 (98) 96 08/27/22 01:30 105 21 151/83 (104) 96 08/27/22 01:00 147/73 (118) 08/27/22 01:00 105 08/27/22 01:00 105 19 147/73 (118) 95 08/27/22 00:00 114 20 158/68 (98) 94 Mechanical Ventilator 30.00 08/27/22 00:00 Mechanical Ventilator 30 08/26/22 23:51 37.1 08/26/22 23:00 105 24 130/62 (84) 96 Mechanical Ventilator 30.00 08/26/22 22:00 116 22 149/64 (92) 96 Mechanical Ventilator 30.00 08/26/22 21:35 98 18 98 30 08/26/22 21:00 18 08/26/22 21:00 98 14 130/67 (88) 98 Mechanical Ventilator 30.00 08/26/22 20:00 Mechanical Ventilator 30 08/26/22 20:00 100 18 128/63 (84) 97 Mechanical Ventilator 30.00 08/26/22 19:45 36.7 08/26/22 19:30 20 08/26/22 19:00 100 08/26/22 19:00 98 17 132/64 (86) 96 Mechanical Ventilator 30.00 08/26/22 18:40 99 19 96 30 08/26/22 18:00 100 18 118/57 (77) 96 Mechanical Ventilator 30.00 08/26/22 17:00 101 19 129/60 (83) 96 Mechanical Ventilator 30.00 08/26/22 16:00 101 22 125/60 (81) 95 Mechanical Ventilator 30.00 08/26/22 16:00 98 Mechanical Ventilator 30 08/26/22 15:00 104 20 118/57 (77) 95 Mechanical Ventilator 30.00 08/26/22 14:12 103 20 94 30 08/26/22 14:00 105 25 125/61 (82) 93 Mechanical Ventilator 30.00 08/26/22 13:00 110 08/26/22 13:00 110 24 119/56 (77) 93 Mechanical Ventilator 30.00 08/26/22 12:00 101 22 112/87 (95) 96 Mechanical Ventilator 30.00 08/26/22 12:00 98 Mechanical Ventilator 30 08/26/22 12:00 36.7 08/26/22 11:00 96 22 109/59 (76) 97 Mechanical Ventilator 30.00 08/26/22 10:34 93 22 95 30 08/26/22 10:00 91 21 106/59 (75) 94 Mechanical Ventilator 30.00 08/26/22 09:00 93 21 92/51 (65) 95 Mechanical Ventilator 30.00 08/26/22 08:00 90 21 95/49 (64) 95 Mechanical Ventilator 30.00 08/26/22 08:00 36.5 08/26/22 08:00 98 Mechanical Ventilator 30 I & O 08/27/22 07:00 Intake Total 1500 ml Output Total 2280 ml Balance -780 ml Capillary Refill : Less Than 3 Seconds General Appearance: Obese, Other (on vent.) HEENT: Moist Mucous Membranes Neck: Supple; No JVD Respiratory: Crackles (bilateral lower lobes), Other (on vent, equal chest expansion) Cardiovascular: Regular Rate, Rhythm, No JVD, No Murmur, Normal Peripheral Pulses Peripheral Pulses: 2+ Radial Pulses (R), 2+ Radial Pulses (L) Gastrointestinal: non tender, soft, abnormal bowel sounds (hypoactive), distended (mildly), other (Wound VAC in place, some serosanginuous fluid along incision, serous fluid in drains) Extremity: Pedal Edema, Swelling, Other (swelling in all extremities) Neurologic/Psychiatric: No Facial Droop Skin: Normal Color Lymphatic: No Adenopathy Results Lab Laboratory Tests 08/26/22 08:40: Stool Occult Blood Immunoassay POSITIVEH 08/26/22 11:57: Glucometer 62L 08/26/22 14:57: Glucometer 79 08/26/22 16:21: Glucometer 78 08/26/22 23:36: Glucometer 68L 08/27/22 04:15: White Blood Count 21.2H, Red Blood Count 3.50L, Hemoglobin 8.4L, Hematocrit 25L, Mean Corpuscular Volume 71L, Mean Corpuscular Hemoglobin 24L, Mean Corpuscular Hemoglobin Concent 34, Red Cell Distribution Width 22.9H, Platelet Count 240, Mean Platelet Volume 10.4, Immature Granulocyte % (Auto) 6, Neutrophils (%) (Auto) 81H, Lymphocytes (%) (Auto) 5L, Monocytes (%) (Auto) 7, Eosinophils (%) (Auto) 1, Basophils (%) (Auto) 0, Neutrophils # (Auto) 17.1H, Lymphocytes # (Auto) 1.0, Monocytes # (Auto) 1.6H, Eosinophils # (Auto) 0.3, Basophils # (Auto) 0.1, Immature Granulocyte # (Auto) 1.3H, Percent Immature Platelet Fraction 5.2, Sodium Level 135, Potassium Level 3.6, Chloride Level 105, Carbon Dioxide Level 18L, Anion Gap 12, Blood Urea Nitrogen 29H, Creatinine 1.82H, Estimat Glomerular Filtration Rate 28, BUN/Creatinine Ratio 16, Glucose Level 75, Calcium Level 8.4L, Phosphorus Level 3.5, Magnesium Level 2.0, Total Bilirubin 1.8H, Direct Bilirubin 1.3H, Indirect Bilirubin 0.5, Aspartate Amino Transf (AST/SGOT) 27, Alanine Aminotransferase (ALT/SGPT) 12, Alkaline Phosphatase 80, Total Protein 4.4L, Albumin 2.4L, Smear Scan YES 08/27/22 06:07: Glucometer 76 Microbiology 08/23/22 Gram Stain - Final, Resulted 08/23/22 Sputum Culture - Preliminary, Resulted Pseudomonas aeruginosa Culture In Progress 08/22/22 Blood Culture - Final, Complete Streptococcus mitis group See Comments 08/22/22 Urine Culture - Final, Complete NO GROWTH Assessment/Plan Assessment/Plan Assessment/Plan Sepsis/Hypotension/Metabolic acidosis - improved - streptococcus viridins isolated in blood culture (08/23) - normotensive and now off pressors - pH in normal range since 08/25 - continue IV fluids - continue gentamicin and clindamycin Acute kidney injury - improving - likely related to sepsis - Cr continuing to trend down (1.82 today) Anemia - Hb stable s/p 3 units of blood - continue to monitor S/P colon resection - adenocarcinoma of ascending colon - right hemicolectomy on 08/18 - repeat colon resection on 08/23 CRUZITO ARAGON DO 08/27/22 1239: Subjective Time Seen by a Provider: 08:41 Subjective/Events-last exam Pt seen and examined, on vent but off propofol. She does wake up and respond to some questions. Objective Exam General Appearance: Obese, Other (on vent.) Respiratory: Crackles (bilateral lower lobes), Other (on vent, equal chest expansion) Cardiovascular: Regular Rate, Rhythm, No Murmur Gastrointestinal: non tender, soft, abnormal bowel sounds (hypoactive), distended (mildly), other (Wound VAC in place, some serosanginuous fluid along incision, serous fluid in drains) Extremity: Pedal Edema, Swelling, Other (swelling in all extremities) Assessment/Plan Assessment/Plan Assessment/Plan Sepsis/Hypotension/Metabolic acidosis - improved - streptococcus viridins isolated in blood culture (08/23) - normotensive and now off pressors - pH in normal range since 08/25 - continue IV fluids - continue gentamicin and clindamycin Acute kidney injury - improving - likely related to sepsis - Cr continuing to trend down (1.82 today) and making much more urine Anemia - Hb stable s/p 3 units of blood - continue to monitor S/P colon resection - adenocarcinoma of ascending colon - right hemicolectomy on 08/18 - repeat colon resection on 08/23 Supervisory-Addendum Brief Verification & Attestation Participated in pt care: history, MDM, physical Personally performed: exam, history, MDM, supervision of care Care discussed with: Medical Student Procedures: n/a Verification and Attestation of Medical Student E/M Service A medical student performed and documented this service. I then reviewed and verified all information documented by the medical student and made modifications to such information, when appropriate. I personally performed a physical exam, medical decision making and then discussed any differences between the notes and made revisions as necessary to create one note. Cruzito Aragon , 08/27/22 , 12:39 DARRON HIGGINS Aug 27, 2022 07:12 CRUZITO ARAGON DO Aug 27, 2022 12:39
[2022-08-27] MEDS: RT-ALBUTEROL SULF 2.5 MG/3 ML PRE-MIX VIAL INH SCH ×2 (07:13→20:11)
[2022-08-27] MEDS: levETIRAcetam 1000 mg/NS 100ml IVPB IV SCH ×2 (08:29→20:56)
[2022-08-27] MEDS: MEROPENEM 500 MG/NS 100 ML IVPB IV SCH ×6 (08:30→23:42)
[2022-08-27] MEDS: PANTOPRAZOLE 40 MG (PROTONIX) VIAL IVP SCH (08:30)
[2022-08-27] MEDS: OXYBUTYNIN (DITROPAN) 5 MG TAB PO SCH ×2 (09:40→20:34)
[2022-08-27] MEDS: risperiDONE 0.5 MG (RisperDAL) TABLET PO SCH ×2 (09:40→20:34)
[2022-08-27] MEDS: lisINopril 20 MG (PRINIVIL) TABLET PO SCH (09:41)
[2022-08-27] MEDS: VITAMIN D3 25 MCG (1,000 UNITS) TABLET PO SCH (09:41)
[2022-08-27 10:13] VITALS: BP 133/65
[2022-08-27] MEDS: morphine INJ 4 MG/ML 1 ML (VIAL/SYRINGE) IVP PRN ×2 (10:19→15:22)
--- NOTE | 2022-08-27 10:25 | Cardiology Progress Note ---
Subjective Date Seen by Provider: Aug 27, 2022 Time Seen by Provider: 10:20 Subjective/Events-last exam Patient was seen at bedside, sedated and intubated. Has been doing well Review of Systems General: Other (Unable to provide review of system) Objective-Cardiology Exam Last Set of Vital Signs Vital Signs 08/27/22 08/27/22 08/27/22 08:00 09:00 10:13 Temp 36.7 Pulse 102 Resp 21 B/P (MAP) 124/59 (74) Pulse Ox 100 O2 Delivery Mechanical Ventilator O2 Flow Rate 30.00 FiO2 30 I&O Intake and Output 08/27/22 00:00 Intake Total 1600 ml Output Total 1915 ml Balance -315 ml Intake Oral 0 ml IV Total 1600 ml Output Urine Total 1300 ml Gastric Drainage Total 150 ml Drainage Total 465 ml # Bowel Movements 1 General: Other (intubated) Lungs: Normal Air Movement, Other Heart: Other (tachycardic) Abdomen: Normal Bowel Sounds, Soft Extremities: Other (2+ pitting edema) Skin: No Rashes, No Significant Lesion Neuro: Other (Sedated and intubated) Psych/Mental Status: Other (Sedated and intubated) Results Lab Laboratory Tests 08/27/22 04:15 A/P-Cardiology Admission Diagnosis Septic shock Hypotension Adenocardinoma Assessment/Plan Adenocarinoma of ascending colon, s/p partial colon and intraperitoneal mass resection Status post acute abdomen on August 23, 2022 underwent exploratory laparotomy, anastomosis leak was noted Currently having a drain, managed by surgical team Septic shock, hypotensive, tachycardic, respiratory failure Currently blood pressure and heart rate are better Managed by medical team. Ventilator dependent respiratory failure, sedated and intubated Managed by medical team Sinus tachycardia secondary to sepsis Continue with supportive care History of hypertension Currently hypotensive, maintained on IV fluid and Levophed Continue to monitor Nonobstructive carotid artery stenosis per carotid duplex done Jul 2022. NORMA DIAMOND MD Aug 27, 2022 10:25
--- NOTE | 2022-08-27 10:51 | Tele-ICU Progress Note ---
Subjective Date Seen by a Provider: Aug 27, 2022 Time Seen by a Provider: 10:51 Subjective/Events-last exam (Tele-ICU Physician , Progress Note ) Service provided via interactive audio and video telecommunications E-CARE system to a patient admitted to ICU bed in [facility]. Patient is seen today due to persistent need of ICU care Available chart/ vitals / labs / Images reviewed Video assessment done using teleICU camera, rest of exam as per RN Discussed with RN Events overnight : Afebrile hemodynamically stable Respiratory - 40 % I/O = pos VENT SETTINGS and ABG reviewed CANDIDATE for SBTreviewed possible contraindications including Cardiovascular Stability /Sedation Score / FI02/PEEP / ABG / CXR/ secretions Sedation, discussed with RN, RASS- 2 OFF Drips: off IV Pressors- OFF Hospital course: (08/18) 76F s/p Lap R hemicolectomy and excision of intraperitoneal mass. (08/22) to ICU with hypotension, tachycardia, and increased pain, r/o Intra- abdominal process - ?Anastomosis leak. CTA = Neg P Embolus. CT A/P = ?Asp PNA. (08/23) OR-Diagnostic Laparoscopy, laparotomy with colon resection and washout INTUBATED 08/24 - AC 16 40 % levo , added vaso 1 u PRBC transfused ( hb 6.6) , CR 3.4 - hydration and lasix x1 ( anuric ) renal consult , CVP 12 , Echo ef 55% 08/25 - AC 22 450 30% +6 , Cr 3 , Hb 6.6 - 2uPRBC , wound vac placed 08/25 , OFF LEVO , vaso 08/26- 30 % + 5 OFF levo A/P Acute hypoxic respiratory failure secondary to possible underlying sepsis, pneumonia and bibasilar atelectasis- INTUBATED 08/20 - AC 22 450 30% +6 - increased secretions -OFF sedation , CANDIDATE for SBT, but not planning for liberation from vent today Shock -?secondary to possible sepsis -pressors OFF 08/26 -ECHO 08/09/22 - EF 55% , RVSP 50 mmHg , CVP12 Sepsis ( off -clindamycin and gentamicin) - sputum + for PSA - changed to merrem 08/24 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 TPN - as per sx Lines : L IJ 08/22 (Central Line Necessity Reviewed) Phillips: + OG: Nutrition: npo - as per SX Analgesia: Anxiety/ delirium VTE Prophylaxis: heparin sq if no active bleeding Stress Ulcer Prophylaxis: ppi Plans in collaboration with bedside consultants and IM MDs. Discussed with RN to reach out if any questions or concerns A total of 34 minutes of critical care time was devoted to this patient today, required to treat and/or prevent further deterioration of critical care condition ( as above ) . Sepsis Event Evaluation Height, Weight, BMI Height: 5'4.00" Weight: 193lbs. 3.0oz. [id number]; 32.11 BMI Method: Exam Exam Patient acknowledged, consented, and participated in this virtual visit which was conducted using real time audio/video Vital Signs Date Time Temp Pulse Resp B/P (MAP) Pulse Ox O2 Delivery O2 Flow Rate FiO2 08/27/22 10:13 102 21 100 30 08/27/22 10:00 98 18 133/65 (88) 98 Mechanical Ventilator 30.00 08/27/22 09:00 98 18 124/59 (74) 98 Mechanical Ventilator 30.00 08/27/22 08:00 100 18 135/60 (82) 98 Mechanical Ventilator 30.00 08/27/22 08:00 36.7 08/27/22 08:00 Mechanical Ventilator 30 08/27/22 07:07 98 18 98 30 08/27/22 07:00 105 19 160/75 (103) 99 Mechanical Ventilator 30.00 08/27/22 07:00 99 08/27/22 06:00 101 19 136/68 (92) 97 Mechanical Ventilator 30.00 08/27/22 05:00 100 18 145/61 (86) 98 08/27/22 04:05 Mechanical Ventilator 30 08/27/22 04:00 103 19 147/67 (96) 97 08/27/22 03:36 37.0 08/27/22 03:00 105 18 132/72 (92) 97 08/27/22 02:27 108 22 97 30 08/27/22 02:00 113 21 129/93 (98) 96 08/27/22 01:30 105 21 151/83 (104) 96 08/27/22 01:00 147/73 (118) 08/27/22 01:00 105 08/27/22 01:00 105 19 147/73 (118) 95 08/27/22 00:00 114 20 158/68 (98) 94 Mechanical Ventilator 30.00 08/27/22 00:00 Mechanical Ventilator 30 08/26/22 23:51 37.1 08/26/22 23:00 105 24 130/62 (84) 96 Mechanical Ventilator 30.00 08/26/22 22:00 116 22 149/64 (92) 96 Mechanical Ventilator 30.00 08/26/22 21:35 98 18 98 30 08/26/22 21:00 18 08/26/22 21:00 98 14 130/67 (88) 98 Mechanical Ventilator 30.00 08/26/22 20:00 Mechanical Ventilator 30 08/26/22 20:00 100 18 128/63 (84) 97 Mechanical Ventilator 30.00 08/26/22 19:45 36.7 08/26/22 19:30 20 08/26/22 19:00 100 08/26/22 19:00 98 17 132/64 (86) 96 Mechanical Ventilator 30.00 08/26/22 18:40 99 19 96 30 08/26/22 18:00 100 18 118/57 (77) 96 Mechanical Ventilator 30.00 08/26/22 17:00 101 19 129/60 (83) 96 Mechanical Ventilator 30.00 08/26/22 16:00 101 22 125/60 (81) 95 Mechanical Ventilator 30.00 08/26/22 16:00 98 Mechanical Ventilator 30 08/26/22 15:00 104 20 118/57 (77) 95 Mechanical Ventilator 30.00 08/26/22 14:12 103 20 94 30 08/26/22 14:00 105 25 125/61 (82) 93 Mechanical Ventilator 30.00 08/26/22 13:00 110 08/26/22 13:00 110 24 119/56 (77) 93 Mechanical Ventilator 30.00 08/26/22 12:00 101 22 112/87 (95) 96 Mechanical Ventilator 30.00 08/26/22 12:00 98 Mechanical Ventilator 30 08/26/22 12:00 36.7 08/26/22 11:00 96 22 109/59 (76) 97 Mechanical Ventilator 30.00 I & O 08/27/22 07:00 Intake Total 1500 ml Output Total 2280 ml Balance -780 ml Height & Weight Height: 5'4.00" Weight: 193lbs. 3.0oz. 87.426952kb; 32.11 BMI Method: General Appearance: Obese, Other (on vent.) HEENT: Moist Mucous Membranes Neck: Supple; No JVD Respiratory: Crackles (bilateral lower lobes), Other (on vent, equal chest expansion) Cardiovascular: Regular Rate, Rhythm, No JVD, No Murmur, Normal Peripheral Pulses Capillary Refill: Less Than 3 Seconds Peripheral Pulses: 2+ Radial Pulses (R), 2+ Radial Pulses (L) Gastrointestinal: non tender, soft, abnormal bowel sounds (hypoactive), d istended (mildly), other (Wound VAC in place, some serosanginuous fluid along incision, serous fluid in drains) Extremity: Pedal Edema, Swelling, Other (swelling in all extremities) Neurologic/Psychiatric: No Facial Droop Skin: Normal Color Lymphatic: No Adenopathy Results Lab Laboratory Tests 08/25/22 16:34 08/25/22 23:30 08/26/22 03:10 08/27/22 04:15 Assessment/Plan Assessment/Plan 1 WALI HOGAN MD Aug 27, 2022 10:51
--- NOTE | 2022-08-27 11:54 | Wound Care Assessment ---
Wound Care Assessment Date Seen by Provider: Aug 27, 2022 Time Seen by Provider: 11:49 Chief Complaint Surgical dehiscence HPI This 76 year old patient was admitted to the hospital and found to have numerous complex medical ailments. 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 She did experience post-operative anemia. She does also exhibit signs of sepsis with pseudomonas on sputum culture (managed by primary team). She continues with leukocytosis. She has experienced acute kidney injury and nephrology is monitoring. GFR is 28 (baseline in 60's). She does also have PEM (see albumin). I was consulted to assist in wound vac management. She has had device on now for several days and has some improvements in measurements and new granulation. She continues with serous drainage (less noted today on exam). I will continue to follow while in hospital and will plan for follow up as outpatient (should she stay local) for advance wound care. Past Medical History: Admits Cancer, Treaments Adenocarcinoma ascending colon, PEM, Sepsis, pneumonia, acute renal injury, post-operative anemia, seizure disorder, difficulty weaning from vent Smoking Status: Never a Smoker Review of Systems Other systems Unable to obtain ROS due to vent status Exam Vital Signs Date Time Temp Pulse Resp B/P (MAP) Pulse Ox O2 Delivery O2 Flow Rate FiO2 08/27/22 11:00 102 25 137/82 (97) 97 Mechanical Ventilator 30.00 08/27/22 10:13 30 08/27/22 08:00 36.7 Capillary Refill : Less Than 3 Seconds General Appearance: mild distress (with wound vac change), obese Respiratory: other (on mechanical ventilator) Neurologic/Psychiatric: other (sedated on ventilator) Skin: normal color, warm/dry Wound assessment: 22x5x4.7cm. The epithelialization is small. There is no tunneling or undermining. Drainage is large and serosanguinous. Granulation is small and pink. Necrotic is small and slough. Fat is exposed, suture is exposed. The margins are flat. Results Laboratory Tests 08/26/22 11:57: Glucometer 62L 08/26/22 14:57: Glucometer 79 08/26/22 16:21: Glucometer 78 08/26/22 23:36: Glucometer 68L 08/27/22 04:15: White Blood Count 21.2H, Red Blood Count 3.50L, Hemoglobin 8.4L, Hematocrit 25L, Mean Corpuscular Volume 71L, Mean Corpuscular Hemoglobin 24L, Mean Corpuscular Hemoglobin Concent 34, Red Cell Distribution Width 22.9H, Platelet Count 240, Mean Platelet Volume 10.4, Immature Granulocyte % (Auto) 6, Neutrophils (%) (Auto) 81H, Lymphocytes (%) (Auto) 5L, Monocytes (%) (Auto) 7, Eosinophils (%) (Auto) 1, Basophils (%) (Auto) 0, Neutrophils # (Auto) 17.1H, Lymphocytes # (Auto) 1.0, Monocytes # (Auto) 1.6H, Eosinophils # (Auto) 0.3, Basophils # (Auto) 0.1, Immature Granulocyte # (Auto) 1.3H, Percent Immature Platelet Fraction 5.2, Sodium Level 135, Potassium Level 3.6, Chloride Level 105, Carbon Dioxide Level 18L, Anion Gap 12, Blood Urea Nitrogen 29H, Creatinine 1.82H, Estimat Glomerular Filtration Rate 28, BUN/Creatinine Ratio 16, Glucose Level 75, Calcium Level 8.4L, Phosphorus Level 3.5, Magnesium Level 2.0, Total Bilirubin 1.8H, Direct Bilirubin 1.3H, Indirect Bilirubin 0.5, Aspartate Amino Transf (AST/SGOT) 27, Alanine Aminotransferase (ALT/SGPT) 12, Alkaline Phosphatase 80, Total Protein 4.4L, Albumin 2.4L, Smear Scan YES 08/27/22 06:07: Glucometer 76 Microbiology 08/23/22 Gram Stain - Final, Resulted 08/23/22 Sputum Culture - Preliminary, Resulted Pseudomonas aeruginosa Culture In Progress 08/22/22 Blood Culture - Final, Complete Streptococcus mitis group See Comments 08/22/22 Urine Culture - Final, Complete NO GROWTH Assessment/Plan/Dx Assessment: 1. Surgical dehiscence 2. Adenocarcinoma s/p colonic resection 3. Acute kidney injury 4. Sepsis 5. Pneumonia (pseudomonal) 6. Post operative anemia 7. PEM Plan: 1. Continue wound vac at current settings. Beginning to see small improvements. 2. Defer to Surgical team 3. Defer to Nephrology 4. Defer to primary team 5. Defer to primary team 6. Defer to primary team 7. Protein supplementation would be warranted once feeding initiated MARK DIANA MD Aug 27, 2022 11:54
--- NOTE | 2022-08-27 14:26 | Progress Note - Hospitalist ---
KAYA SANCHES 08/27/22 1426: Subjective HPI/CC On Admission Roseann has been off of pressors and propofol since yesterday. She is satting well into 90s with vent at FiO2 30%. She nods her head when asked if she can hear me, squeezes hand on command. Granddaughter at bedside agrees she is less edematous. plan for SBT today. Review of Systems Gastrointestinal: No: Abdominal Pain Neurological: Weakness Objective Exam Vital Signs Vital Signs Date Time Temp Pulse Resp B/P (MAP) Pulse Ox O2 Delivery O2 Flow Rate FiO2 08/27/22 13:00 97 18 130/64 (78) 100 Mechanical Ventilator 30.00 08/27/22 12:00 30 08/27/22 08:00 36.7 Capillary Refill : Less Than 3 Seconds General Appearance: No Apparent Distress, Obese HEENT: PERRL/EOMI, Moist Mucous Membranes Neck: Non Tender, Supple; No JVD Respiratory: Rhonci, Other (some rhonci on exam, equal chest expansion. Vented on AC/VC+ with FiO2 30%.) Cardiovascular: Regular Rate, Rhythm, No JVD, No Murmur, Normal Peripheral Pulses Gastrointestinal: Normal Bowel Sounds, Non Tender, Soft; No Distended; Other (abdominal drain in place. output of ~0.5L since yesterday) Extremity: Swelling, Other (extremities with edema, mild improvement from yesterday. 2+ pitting edema at b/l ankles.) Neurologic/Psychiatric: Alert, Other (PERRL. corneal reflex intact.) Skin: Normal Color, Warm/Dry Results/Procedures Lab Laboratory Tests 08/27/22 04:15 Patient resulted labs reviewed. 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 -08/23 anastomotic leak noted -drain placed by surgery, monitoring -output from drain 465mL -BMx1 yesterday Septic shock AHRF Pneumonia -NorE, vaso paused, MAPs in 70s-90s over 24 hours -propofol paused since yesterday -cxr reviewed -blood cx grew nml skin edward x1 -sputum culture obtained from ET tube grew p aeru, on meropenem -awaiting susceptibility -Plan for SBT today, wean off vent as tolerated RA Fluid Overload -Rise to >3 creatinine, trending down, 1.82 today -30kg weight gain since 08/18 -very edematous on exam, improved today -having adequate urine output -nephro on board, happy with urine output Seizure d/o -on IV keppra, continue Hx of HTN -monitor Microcytic Anemia -received 3x blood transfusions so far. -Hgb trending up -[facility] noted hx of iron deficiency anemia -ordering iron studies Dispo: very fluid overloaded, improving. Weaning off vent with SBT today. possible extubation tomorrow if breathing improves. Only requiring 30% o2 with good o2 sats. CLARISSA FREDERICK DO 08/28/22 0540: Supervisory-Addendum Brief Verification & Attestation Participated in pt care: history, MDM, physical Personally performed: exam, history, MDM, supervision of care Care discussed with: Medical Student Procedures: n/a Results interpretation: Verified all documentation Verification and Attestation of Medical Student E/M Service A medical student performed and documented this service in my presence. I reviewed and verified all information documented by the medical student and made modifications to such information, when appropriate. I personally performed the physical exam and medical decision making. Clarissa Frederick Aug 28, 2022,05:40 KAYA SANCHES Aug 27, 2022 14:26 CLARISSA FREDERICK DO Aug 28, 2022 05:40
[2022-08-27 14:27] VITALS: BP 135/67
[2022-08-27 18:53] VITALS: BP 121/72
[2022-08-27 20:21] VITALS: BP 134/70
[2022-08-27] MEDS: DONEPEZIL 10 MG (ARICEPT) TAB PO SCH (20:33)
[2022-08-27] MEDS: PRAMIPEXOLE 0.125 MG (MIRAPEX) TABLET PO SCH (20:34)
[2022-08-28] VITALS (8 sets, daily range): BP systolic 125–153; BP diastolic 69–83
[2022-08-28 03:20] LABS: BASOPHILS # (AUTO) 0.1 10^3/uL (0.0-0.1); BASOPHILS % (AUTO) 0 % (0-10); EOSINOPHILS # (AUTO) 0.3 10^3/uL (0.0-0.3); EOSINOPHILS % (AUTO) 2 % (0-10); HEMATOCRIT 25 % (35-52); HEMOGLOBIN 8.4 g/dL (11.5-16.0); LYMPHOCYTES % (AUTO) 7 % (12-44); MEAN CORPUSCULAR HEMOGLOBIN 24 pg (25-34); MEAN CORPUSCULAR HGB CONC 34 g/dL (32-36); MEAN CORPUSCULAR VOLUME 72 fL (80-99); MEAN PLATELET VOLUME 10.4 fL (9.0-12.2); MONOCYTES # (AUTO) 1.2 10^3/uL (0.0-1.0); MONOCYTES % (AUTO) 8 % (0-12); NEUTROPHILS # (AUTO) 11.6 10^3/uL (1.8-7.8); NEUTROPHILS % (AUTO) 76 % (42-75); PLATELET COUNT 277 10^3/uL (130-400); WHITE BLOOD COUNT 15.2 10^3/uL (4.3-11.0)
[2022-08-28 03:40] LABS: ALBUMIN 2.2 GM/DL (3.2-4.5); BILIRUBIN,DIRECT 0.9 MG/DL (0.0-0.3); BILIRUBIN,INDIRECT 0.4 MG/DL; BILIRUBIN,TOTAL 1.3 MG/DL (0.1-1.0); CALCIUM 8.4 MG/DL (8.5-10.1); CREATININE SERUM 1.17 MG/DL (0.60-1.30); MAGNESIUM 1.9 MG/DL (1.6-2.4); POTASSIUM 3.9 MMOL/L (3.6-5.0); TOTAL PROTEIN 4.7 GM/DL (6.4-8.2)
[2022-08-28 03:51] LABS: EOSINOPHILS % (MANUAL) 1 %; LYMPHOCYTES % (MANUAL) 8 %; METAMYELOCYTES % 2 %; MONOCYTES % (MANUAL) 8 %; MYELOCYTES % 2 %; NEUTROPHILS % (MANUAL) 79 %; NUCLEATED RED BLOOD CELLS 1
[2022-08-28 03:52] LABS: HYPOCHROMASIA SLIGHT; POLYCHROMASIA SLIGHT
[2022-08-28] MEDS: POTASSIUM CL 10MEQ/50ML IVPB 50 ML IV SCH (04:04)
[2022-08-28] MEDS: MAGNESIUM 1 GM/100 ML IVPB 100 ML IV SCH ×2 (04:04→04:11)
[2022-08-28] MEDS: inSUlin ASPART (NovoLOG) 1 UNIT/0.01 ML (CHARGE PER UNIT) SC SCH ×4 (04:11→23:16)
[2022-08-28] MEDS: KCL 20 MEQ TAB (K-DUR) PO SCH (04:11)
[2022-08-28] MEDS: RT-ALBUTEROL SULF 2.5 MG/3 ML PRE-MIX VIAL INH SCH ×2 (06:35→22:33)
[2022-08-28] MEDS: ACETAMINOPHEN 500 MG TAB (TYLENOL) PO SCH ×3 (07:22→22:06)
[2022-08-28] MEDS: PROPOFOL DRIP (ICU) 100 ML IV SCH ×3 (07:23→23:33)
[2022-08-28] MEDS: OXYBUTYNIN (DITROPAN) 5 MG TAB PO SCH ×2 (07:25→20:15)
[2022-08-28] MEDS: lisINopril 20 MG (PRINIVIL) TABLET PO SCH (07:25)
[2022-08-28] MEDS: risperiDONE 0.5 MG (RisperDAL) TABLET PO SCH ×2 (07:25→20:15)
[2022-08-28] MEDS: VITAMIN D3 25 MCG (1,000 UNITS) TABLET PO SCH (07:25)
--- NOTE | 2022-08-28 07:36 | Progress Note - Hospitalist ---
Subjective HPI/CC On Admission Date Seen by Provider: Aug 28, 2022 Time Seen by Provider: 11:00 Roseann has been off of pressors and propofol since yesterday. She is satting well into 90s with vent at FiO2 30%. She nods her head when asked if she can hear me, squeezes hand on command. Granddaughter at bedside agrees she is less edematous. plan for SBT today. Subjective/Events-last exam Still intubated Labs reviewed Feeds tolerated Reviewed vent settings Review of Systems General: Fatigue, Malaise Objective Exam Vital Signs Vital Signs Date Time Temp Pulse Resp B/P (MAP) Pulse Ox O2 Delivery O2 Flow Rate FiO2 08/29/22 06:00 97 24 149/65 (93) 97 Mechanical Ventilator 21.00 08/29/22 04:00 36.2 08/29/22 04:00 21 Capillary Refill : Less Than 3 Seconds General Appearance: No Apparent Distress, WD/WN, Chronically ill, Other (sedated ) Respiratory: No Accessory Muscle Use, No Respiratory Distress, Decreased Breath Sounds Results/Procedures Lab Laboratory Tests 08/29/22 03:35 Patient resulted labs reviewed. Imaging: Reviewed Imaging Report Assessment/Plan Assessment and Plan Assess & Plan/Chief Complaint Assess & Plan/Chief Complaint Adenocarinoma of ascending colon s/p partial colon and intraperitoneal mass resection -08/23 anastomotic leak noted -drain placed by surgery, monitoring -output from drain 465mL -BMx1 yesterday Septic shock AHRF Pneumonia -NorE, vaso paused, MAPs in 70s-90s over 24 hours -propofol paused since yesterday -cxr reviewed -blood cx grew nml skin edward x1 -sputum culture obtained from ET tube grew p aeru, on meropenem -awaiting susceptibility -Plan for SBT today, wean off vent as tolerated RA Fluid Overload -Rise to >3 creatinine, trending down, 1.82 today -30kg weight gain since 08/18 -very edematous on exam, improved today -having adequate urine output -nephro on board, happy with urine output Seizure d/o -on IV keppra, continue Hx of HTN -monitor Microcytic Anemia -received 3x blood transfusions so far. -Hgb trending up -[facility] noted hx of iron deficiency anemia -ordering iron studies Dispo: very fluid overloaded, improving. Weaning off vent with SBT today. possible extubation soon if breathing improves. Only requiring 30% o2 with good o2 sats. Critical Care Critically Ill Patient KOBY FREDERICK DO Aug 28, 2022 07:36
--- NOTE | 2022-08-28 08:30 | Diagnostic Imaging Report ---
INDICATION: Pneumonia, intubated. TECHNIQUE: Single view chest 8:03 AM. CORRELATION STUDY: 08/24/2022 FINDINGS: Left IJ central line tip over the SVC along with endotracheal tube are present. Heart size and mediastinum are stable. Rather prominent infiltrate particularly in the right perihilar and basilar region, appears adversely increased from prior. Small effusions. Mildly prominent interstitial markings could be reflective of mild edema. IMPRESSION: 1. Stable support lines and tubes. 2. Increasing infiltrate like opacity in the right perihilar and basilar region. Small effusion along with probable component of interstitial edema. Dictated by: Dictated on workstation # [id number]
--- NOTE | 2022-08-28 08:32 | Progress Note - Surgery ---
ZAYALICE 08/28/22 0831: Subjective Date Seen by a Provider: Aug 28, 2022 Time Seen by a Provider: 07:10 Subjective/Events-last exam Pt s/p Laparoscopic hand assisted R hemicolonectomy and diagnostic lap with abd washout Pt is laying in bed, intubated. Pt is not on sedatives at this time and can nod to questions. Pt states that she is feeling worse today and c/o abd pain, this may be secondary to surgical pain now that pt is no longer sedated. Per nurse, pt had a small BM last night. L RICCARDO drain contains serous fluid and per nurse pt had 30-50mLs every 4hours overnight. R RICCARDO drain contains scant serosangous fluid and per nurse has had 5-20mls overnight. Pt urine output is .5ml/kg/hr today. Pt's WBC has improved but remains elevated, Hgb stable today. Pt was started on tube feeds yesterday and has been tolerating well per nurse. Pt started to become anxious and frustrated d/t to intubation and was unable to question her regarding ROS. SBT will attempted again today per nurse. Review of Systems Pulmonary: Cough Gastrointestinal: Abdominal Pain; No: Nausea, Vomiting limited d/t pt intubation and frustration Objective Exam Vital Signs Date Time Temp Pulse Resp B/P (MAP) Pulse Ox O2 Delivery O2 Flow Rate FiO2 08/28/22 08:00 107 24 148/71 (100) 90 Mechanical Ventilator 21.00 08/28/22 07:51 36.5 08/28/22 07:49 36.5 08/28/22 07:00 102 24 144/73 (98) 93 Mechanical Ventilator 21.00 08/28/22 07:00 99 08/28/22 06:35 99 22 96 21 08/28/22 06:00 96 22 153/70 (97) 95 Mechanical Ventilator 21.00 08/28/22 05:00 90 21 127/62 (83) 100 Mechanical Ventilator 21.00 08/28/22 04:00 88 21 132/60 (84) 93 Mechanical Ventilator 21.00 08/28/22 03:57 36.8 94 Mechanical Ventilator 21.00 08/28/22 03:56 94 Mechanical Ventilator 21 08/28/22 03:00 84 21 126/65 (85) 98 Mechanical Ventilator 30.00 08/28/22 02:00 93 22 125/69 (87) 97 Mechanical Ventilator 30.00 08/28/22 01:59 89 22 96 21 08/28/22 01:00 84 22 126/69 (88) 100 Mechanical Ventilator 30.00 08/28/22 01:00 87 08/28/22 00:00 86 21 125/71 (89) 100 Mechanical Ventilator 30.00 08/27/22 23:59 100 Mechanical Ventilator 30 08/27/22 23:41 36.6 100 Mechanical Ventilator 30.00 08/27/22 23:00 85 22 129/71 (90) 100 Mechanical Ventilator 30.00 08/27/22 22:08 88 131/71 08/27/22 22:00 89 17 133/81 (98) 100 Mechanical Ventilator 30.00 08/27/22 21:00 88 22 131/71 (91) 100 Mechanical Ventilator 30.00 08/27/22 20:35 37.2 18 100 Mechanical Ventilator 30.00 08/27/22 20:21 98 18 98 30 08/27/22 20:00 88 22 131/70 (90) 100 Mechanical Ventilator 30.00 08/27/22 19:43 98 134/70 08/27/22 19:17 100 Mechanical Ventilator 30 08/27/22 19:00 100 08/27/22 19:00 96 18 132/75 (94) 100 Mechanical Ventilator 30.00 08/27/22 18:53 97 19 100 30 08/27/22 18:00 90 18 121/72 (84) 100 Mechanical Ventilator 30.00 08/27/22 17:00 95 18 121/60 (75) 98 Mechanical Ventilator 30.00 08/27/22 16:18 Mechanical Ventilator 30 08/27/22 16:00 92 17 117/56 (74) 97 Mechanical Ventilator 30.00 08/27/22 15:50 36.9 08/27/22 15:31 99 135/67 08/27/22 15:00 96 18 130/62 (81) 98 Mechanical Ventilator 30.00 08/27/22 14:27 99 19 99 30 08/27/22 14:00 98 18 135/67 (90) 100 Mechanical Ventilator 30.00 08/27/22 13:00 97 18 130/64 (78) 100 Mechanical Ventilator 30.00 08/27/22 12:47 101 08/27/22 12:00 Mechanical Ventilator 30 08/27/22 12:00 102 18 137/64 (85) 98 Mechanical Ventilator 30.00 08/27/22 11:00 102 25 137/82 (97) 97 Mechanical Ventilator 30.00 08/27/22 10:13 102 21 100 30 08/27/22 10:00 98 18 133/65 (88) 98 Mechanical Ventilator 30.00 08/27/22 09:00 98 18 124/59 (74) 98 Mechanical Ventilator 30.00 I & O 08/28/22 07:00 Intake Total 890 ml Output Total 2555 ml Balance -1665 ml Capillary Refill : Less Than 3 Seconds General Appearance: Anxious, Mild Distress (secondary to intubation), Obese HEENT: PERRL/EOMI, Moist Mucous Membranes Neck: Non Tender, Supple; No JVD Respiratory: Crackles (B/L and diffuse), Rhonci, Other (some rhonci on exam, equal chest expansion. Vented on AC/VC+ with FiO2 30%.) Cardiovascular: No JVD, No Murmur, Tachycardia Gastrointestinal: soft, distended (mildly), other (Wound VAC in place, some some tissue granulation present incision, serous fluid in drains in L drain, serosangous in R drain) Extremity: No Calf Tenderness, Pedal Edema (1-2+ BL ), Swelling (UE B/L) Neurologic/Psychiatric: Alert, Oriented x3 (unable to fully assess d/t intubation) Skin: Normal Color, Warm/Dry, Other (some erythema and tenderness noted on lateral L neck beside bandage for central line) Lymphatic: No Adenopathy Results Lab Laboratory Tests 08/27/22 12:59: Glucometer 70 08/27/22 19:09: Glucometer 66L 08/27/22 23:41: Glucometer 75 08/28/22 03:05: White Blood Count 15.2H, Red Blood Count 3.44L, Hemoglobin 8.4L, Hematocrit 25L, Mean Corpuscular Volume 72L, Mean Corpuscular Hemoglobin 24L, Mean Corpuscular Hemoglobin Concent 34, Red Cell Distribution Width 23.3H, Platelet Count 277, Mean Platelet Volume 10.4, Immature Granulocyte % (Auto) 7, Neutrophils (%) (Auto) 76H, Lymphocytes (%) (Auto) 7L, Monocytes (%) (Auto) 8, Eosinophils (%) (Auto) 2, Basophils (%) (Auto) 0, Neutrophils # (Auto) 11.6H, Lymphocytes # (Auto) 1.0, Monocytes # (Auto) 1.2H, Eosinophils # (Auto) 0.3, Basophils # (Auto) 0.1, Immature Granulocyte # (Auto) 1.0H, Neutrophils % (Manual) 79, Lymphocytes % (Manual) 8, Monocytes % (Manual) 8, Eosinophils % (Manual) 1, Metamyelocytes % 2, Myelocytes % 2, Nucleated Red Blood Cells 1, Polychromasia SLIGHT, Hypochromasia SLIGHT, Sodium Level 136, Potassium Level 3.9, Chloride Level 107, Carbon Dioxide Level 19L, Anion Gap 10, Blood Urea Nitrogen 31H, Creatinine 1.17, Estimat Glomerular Filtration Rate 48, BUN/Creatinine Ratio 26, Glucose Level 93, Calcium Level 8.4L, Phosphorus Level 3.0, Magnesium Level 1.9, Total Bilirubin 1.3H, Direct Bilirubin 0.9H, Indirect Bilirubin 0.4, Aspartate Amino Transf (AST/SGOT) 33, Alanine Aminotransferase (ALT/SGPT) 14, Alkaline Phosphatase 73, Total Protein 4.7L, Albumin 2.2L Microbiology 08/23/22 Gram Stain - Final, Complete 08/23/22 Sputum Culture - Final, Complete Pseudomonas aeruginosa Mixed Bacterial Maida 08/22/22 Blood Culture - Final, Complete Streptococcus mitis group See Comments 08/22/22 Urine Culture - Final, Complete NO GROWTH Assessment/Plan Assessment/Plan Assessment/Plan S/P DAY 8 Laparoscopic hand assisted right hemicolectomy S/P DAY 5 Diagnostic lap with abd washout Septic shock secondary to S. viridins-resolved RA-improving Anemia-stable Leukocytosis-improving Continue Meropenem continue pain medication prn continue IVF continue tube feeds, consider moving medications to PO if tolerated via tube continue to monitor Hgb, transfuse <7 MONICO TYSON DO 08/28/22 1229: Subjective Subjective/Events-last exam Intubated not sedated. Pain present, not quite controlled she states. Adequte urine output. WBC decreasing. RICCARDO's serous drainage. Wound vac at midline. Objective Exam General Appearance: No Apparent Distress, Other (laying down, more comfortable at time of my visit, ) HEENT: PERRL/EOMI, Other (intubated) Neck: Non Tender, Supple Respiratory: Chest Non Tender, No Accessory Muscle Use, No Respiratory Distress Cardiovascular: Regular Rate, Rhythm, No JVD Gastrointestinal: soft, distended (minimal), other (Wound VAC in place, some some tissue granulation present incision, serous fluid in drains in L and R drains) Extremity: Pedal Edema (1-2+ BL ), Swelling (UE B/L) Neurologic/Psychiatric: Alert, No Motor/Sensory Deficits Skin: Normal Color, Warm/Dry Lymphatic: No Adenopathy Assessment/Plan Assessment/Plan Assessment/Plan S/P DAY 8 Laparoscopic hand assisted right hemicolectomy S/P DAY 5 Diagnostic lap with abd washout and colon resection and reanastamosis Septic shock secondary to S. viridins-resolved RA-improving Anemia-stable Leukocytosis-improving Continue Meropenem continue pain medication prn continue IVF continue tube feeds, consider moving medications to PO if tolerated via tube continue to monitor Hgb, transfuse <7 Supervisory-Addendum Brief Verification & Attestation Participated in pt care: history, MDM, physical Personally performed: exam, history, MDM, supervision of care Care discussed with: Medical Student Procedures: n/a Results interpretation: Verified all documentation Verification and Attestation of Medical Student E/M Service A medical student performed and documented this service in my presence. I reviewed and verified all information documented by the medical student and made modifications to such information, when appropriate. I personally performed the physical exam and medical decision making. Monico Tyson Aug 28, 2022,12:29 ALICE COLLAZO Aug 28, 2022 08:31 MONICO TYSON DO Aug 28, 2022 12:29
[2022-08-28] MEDS: PANTOPRAZOLE 40 MG (PROTONIX) VIAL IVP SCH (08:37)
[2022-08-28] MEDS: MEROPENEM 500 MG/NS 100 ML IVPB IV SCH ×6 (08:37→23:15)
[2022-08-28] MEDS: levETIRAcetam 1000 mg/NS 100ml IVPB IV SCH ×2 (08:37→20:15)
--- NOTE | 2022-08-28 08:56 | Cardiology Progress Note ---
Subjective Date Seen by Provider: Aug 28, 2022 Time Seen by Provider: 08:54 Subjective/Events-last exam Patient was seen at bedside, intubated, opening her eyes, following commands Review of Systems General: Other (Unable to provide review of system) Objective-Cardiology Exam Last Set of Vital Signs Vital Signs 08/28/22 08/28/22 08/28/22 06:35 07:51 08:00 Temp 36.5 Pulse 107 Resp 24 B/P (MAP) 148/71 (100) Pulse Ox 90 O2 Delivery Mechanical Ventilator O2 Flow Rate 21.00 FiO2 21 I&O Intake and Output 08/28/22 00:00 Intake Total 290 ml Output Total 2955 ml Balance -2665 ml Intake Oral 0 ml IV Total 200 ml Tube Feeding 40 ml Other 50 ml Output Urine Total 1625 ml Gastric Drainage Total 75 ml Drainage Total 355 ml Other 900 ml General: Other (intubated) Lungs: Normal Air Movement, Other Heart: Other (tachycardic) Abdomen: Normal Bowel Sounds, Soft Extremities: Other (2+ pitting edema) Skin: No Rashes, No Significant Lesion Neuro: Other (Intubated, following commands) Psych/Mental Status: Other (Intubated) Results Lab Laboratory Tests 08/28/22 03:05 A/P-Cardiology Admission Diagnosis Septic shock Hypotension Adenocardinoma Assessment/Plan Adenocarinoma of ascending colon, s/p partial colon and intraperitoneal mass resection Status post acute abdomen on August 23, 2022 underwent exploratory laparotomy, anastomosis leak was noted Currently having a drain, managed by surgical team Septic shock, hypotensive, tachycardic, respiratory failure Currently blood pressure and heart rate are better Currently off pressors Has significant peripheral edema, I will give Lasix 40 mg IV and evaluate response Ventilator dependent respiratory failure, Currently off sedation, multiple weaning trials. Managed by medical team Sinus tachycardia secondary to sepsis Continue with supportive care History of hypertension Currently hypotensive, maintained on IV fluid and Levophed Continue to monitor Nonobstructive carotid artery stenosis per carotid duplex done Jul 2022. NORMA DIAMOND MD Aug 28, 2022 08:56
[2022-08-28] MEDS ORDERED: FUROSEMIDE 40 MG/4 ML INJ (LASIX) IVP ONE ×2 (09:00)
--- NOTE | 2022-08-28 09:31 | Tele-ICU Progress Note ---
Subjective Date Seen by a Provider: Aug 28, 2022 Subjective/Events-last exam This virtual visit was conducted using real time audio/video. Thank you for asking us to see this patient for respiratory insufficiency due to pna, deconditioning Recent events: Short SBT this AM ended after 5 minutes: fatigue, increased RR, low TVs. Still creamy secretions. Repat CXR ordered and reviewed. PE: VSS. O2 sat 96% on AC 18/450/30/+5 HEENT: No obvious masses, adenopathy or JVD. Chest: clear to auscultation. CV: RRR S1 S2 No murmur or added sounds. Abd: Non-tender. Bowel sounds Y. : Unremarkable. [employer] MANAGEMENT SPECIALIST/psychiatric: Grossly intact. No obvious focal findings. Extremities: 2+ edema. Capillary refill < 3 seconds. Skin: unremarkable. Results: Elevated WCC 15.2, decreasing, BUN 31, Creat 2.2. Decreased Albumin 2.2. BG: none recently. CXR: Large RML infilt. Available chart/ vitals / labs / images reviewed. Video assessment done using teleICU camera, rest of exam as per RN. A/P: Respiratory insufficiency: Continue present management with vent, albut., prop. Monitor for increasing oxygenation needs. Critical Care: critically ill patient. Cont. PPI, keppra, abx, aricept, lisin., risperdal, Mirapex, SSI, Heparin. Discussed with RN . Asked RN to reach out to eICU if any questions or concerns later. Time spent with patient/coordination of care with other health professionals (mins): Sepsis Event Evaluation Height, Weight, BMI Height: 5'4.00" Weight: 193lbs. 3.0oz. 87.534475ps; 41.16 BMI Method: Exam Exam Patient acknowledged, consented, and participated in this virtual visit which was conducted using real time audio/video Vital Signs Date Time Temp Pulse Resp B/P (MAP) Pulse Ox O2 Delivery O2 Flow Rate FiO2 08/28/22 09:00 98 25 145/85 (107) 99 Mechanical Ventilator 21.00 08/28/22 08:00 107 24 148/71 (100) 90 Mechanical Ventilator 21.00 08/28/22 07:51 36.5 08/28/22 07:49 36.5 08/28/22 07:00 102 24 144/73 (98) 93 Mechanical Ventilator 21.00 08/28/22 07:00 99 08/28/22 06:35 99 22 96 21 08/28/22 06:00 96 22 153/70 (97) 95 Mechanical Ventilator 21.00 08/28/22 05:00 90 21 127/62 (83) 100 Mechanical Ventilator 21.00 08/28/22 04:00 88 21 132/60 (84) 93 Mechanical Ventilator 21.00 08/28/22 03:57 36.8 94 Mechanical Ventilator 21.00 08/28/22 03:56 94 Mechanical Ventilator 21 08/28/22 03:00 84 21 126/65 (85) 98 Mechanical Ventilator 30.00 08/28/22 02:00 93 22 125/69 (87) 97 Mechanical Ventilator 30.00 08/28/22 01:59 89 22 96 21 08/28/22 01:00 84 22 126/69 (88) 100 Mechanical Ventilator 30.00 08/28/22 01:00 87 08/28/22 00:00 86 21 125/71 (89) 100 Mechanical Ventilator 30.00 08/27/22 23:59 100 Mechanical Ventilator 30 08/27/22 23:41 36.6 100 Mechanical Ventilator 30.00 08/27/22 23:00 85 22 129/71 (90) 100 Mechanical Ventilator 30.00 08/27/22 22:08 88 131/71 08/27/22 22:00 89 17 133/81 (98) 100 Mechanical Ventilator 30.00 08/27/22 21:00 88 22 131/71 (91) 100 Mechanical Ventilator 30.00 08/27/22 20:35 37.2 18 100 Mechanical Ventilator 30.00 08/27/22 20:21 98 18 98 30 08/27/22 20:00 88 22 131/70 (90) 100 Mechanical Ventilator 30.00 08/27/22 19:43 98 134/70 08/27/22 19:17 100 Mechanical Ventilator 30 08/27/22 19:00 100 08/27/22 19:00 96 18 132/75 (94) 100 Mechanical Ventilator 30.00 08/27/22 18:53 97 19 100 30 08/27/22 18:00 90 18 121/72 (84) 100 Mechanical Ventilator 30.00 08/27/22 17:00 95 18 121/60 (75) 98 Mechanical Ventilator 30.00 08/27/22 16:18 Mechanical Ventilator 30 08/27/22 16:00 92 17 117/56 (74) 97 Mechanical Ventilator 30.00 08/27/22 15:50 36.9 08/27/22 15:31 99 135/67 08/27/22 15:00 96 18 130/62 (81) 98 Mechanical Ventilator 30.00 08/27/22 14:27 99 19 99 30 08/27/22 14:00 98 18 135/67 (90) 100 Mechanical Ventilator 30.00 08/27/22 13:00 97 18 130/64 (78) 100 Mechanical Ventilator 30.00 08/27/22 12:47 101 08/27/22 12:00 Mechanical Ventilator 30 08/27/22 12:00 102 18 137/64 (85) 98 Mechanical Ventilator 30.00 08/27/22 11:00 102 25 137/82 (97) 97 Mechanical Ventilator 30.00 08/27/22 10:13 102 21 100 30 08/27/22 10:00 98 18 133/65 (88) 98 Mechanical Ventilator 30.00 I & O 08/28/22 07:00 Intake Total 890 ml Output Total 2555 ml Balance -1665 ml Height & Weight Height: 5'4.00" Weight: 193lbs. 3.0oz. 87.591222jg; 41.16 BMI Method: General Appearance: Anxious, Mild Distress (secondary to intubation), Obese HEENT: PERRL/EOMI, Moist Mucous Membranes Neck: Non Tender, Supple; No JVD Respiratory: Crackles (B/L and diffuse), Rhonci, Other (some rhonci on exam, equal chest expansion. Vented on AC/VC+ with FiO2 30%.) Cardiovascular: No JVD, No Murmur, Tachycardia Capillary Refill: Less Than 3 Seconds Gastrointestinal: soft, distended (mildly), other (Wound VAC in place, some some tissue granulation present incision, serous fluid in drains in L drain, serosangous in R drain) Extremity: No Calf Tenderness, Pedal Edema (1-2+ BL ), Swelling (UE B/L) Neurologic/Psychiatric: Alert, Oriented x3 (unable to fully assess d/t intubation) Skin: Normal Color, Warm/Dry, Other (some erythema and tenderness noted on lateral L neck beside bandage for central line) Lymphatic: No Adenopathy Results Lab Laboratory Tests 08/27/22 04:15 08/28/22 03:05 Assessment/Plan Assessment/Plan See free text. Critical Care: Ventilator Management MAIA MCCLURE MD Aug 28, 2022 09:31
[2022-08-28] MEDS: morphine INJ 4 MG/ML 1 ML (VIAL/SYRINGE) IVP PRN ×2 (13:07→17:06)
[2022-08-28] MEDS: NOREPINEPHRINE 8 MG/250 ML 250 ML IV SCH (13:09)
[2022-08-28] MEDS: DONEPEZIL 10 MG (ARICEPT) TAB PO SCH (20:15)
[2022-08-28] MEDS: PRAMIPEXOLE 0.125 MG (MIRAPEX) TABLET PO SCH (20:15)
[2022-08-29] MEDS: morphine INJ 4 MG/ML 1 ML (VIAL/SYRINGE) IVP PRN ×4 (00:07→19:15)
[2022-08-29 02:06] VITALS: BP 107/83
[2022-08-29] MEDS: NOREPINEPHRINE 8 MG/250 ML 250 ML IV SCH ×2 (03:05→17:09)
[2022-08-29 03:53] LABS: BASOPHILS # (AUTO) 0.1 10^3/uL (0.0-0.1); BASOPHILS % (AUTO) 0 % (0-10); EOSINOPHILS # (AUTO) 0.4 10^3/uL (0.0-0.3); EOSINOPHILS % (AUTO) 2 % (0-10); HEMATOCRIT 25 % (35-52); HEMOGLOBIN 8.3 g/dL (11.5-16.0); LYMPHOCYTES # (AUTO) 0.9 10^3/uL (1.0-4.0); LYMPHOCYTES % (AUTO) 6 % (12-44); MEAN CORPUSCULAR HEMOGLOBIN 24 pg (25-34); MEAN CORPUSCULAR HGB CONC 33 g/dL (32-36); MEAN CORPUSCULAR VOLUME 73 fL (80-99); MEAN PLATELET VOLUME 10.2 fL (9.0-12.2); MONOCYTES # (AUTO) 1.2 10^3/uL (0.0-1.0); MONOCYTES % (AUTO) 8 % (0-12); NEUTROPHILS # (AUTO) 12.2 10^3/uL (1.8-7.8); NEUTROPHILS % (AUTO) 78 % (42-75); PLATELET COUNT 334 10^3/uL (130-400); WHITE BLOOD COUNT 15.6 10^3/uL (4.3-11.0)
[2022-08-29 04:03] LABS: ALBUMIN 2.2 GM/DL (3.2-4.5)
[2022-08-29 04:05] LABS: POTASSIUM 3.8 MMOL/L (3.6-5.0)
[2022-08-29 04:06] LABS: TOTAL PROTEIN 4.8 GM/DL (6.4-8.2)
[2022-08-29 04:08] LABS: BILIRUBIN,TOTAL 0.7 MG/DL (0.1-1.0)
[2022-08-29 04:10] LABS: PHOSPHORUS 3.3 MG/DL (2.3-4.7)
[2022-08-29 04:11] LABS: BILIRUBIN,DIRECT 0.5 MG/DL (0.0-0.3); BILIRUBIN,INDIRECT 0.2 MG/DL; CREATININE SERUM 0.89 MG/DL (0.60-1.30)
[2022-08-29] MEDS: POTASSIUM CL 10MEQ/50ML IVPB 50 ML IV SCH ×2 (04:54→04:59)
[2022-08-29] MEDS: MAGNESIUM 1 GM/100 ML IVPB 100 ML IV SCH (04:54)
[2022-08-29] MEDS: KCL 20 MEQ TAB (K-DUR) PO SCH (04:54)
[2022-08-29] MEDS: inSUlin ASPART (NovoLOG) 1 UNIT/0.01 ML (CHARGE PER UNIT) SC SCH ×4 (04:55→23:15)
[2022-08-29] MEDS: ACETAMINOPHEN 500 MG TAB (TYLENOL) PO SCH ×3 (06:48→22:20)
--- NOTE | 2022-08-29 07:15 | Progress Note - Hospitalist ---
Subjective HPI/CC On Admission Date Seen by Provider: Aug 29, 2022 Time Seen by Provider: 11:00 Roseann has been off of pressors and propofol since yesterday. She is satting well into 90s with vent at FiO2 30%. She nods her head when asked if she can hear me, squeezes hand on command. Granddaughter at bedside agrees she is less edematous. plan for SBT today. Subjective/Events-last exam Still on vent 450/15/11/20 Monitoring closely BM+ Objective Exam Vital Signs Vital Signs Date Time Temp Pulse Resp B/P (MAP) Pulse Ox O2 Delivery O2 Flow Rate FiO2 08/29/22 13:43 102 26 95 21 08/29/22 13:00 149/64 (97) Mechanical Ventilator 21.00 08/29/22 12:28 37.0 Capillary Refill : Less Than 3 Seconds General Appearance: Chronically ill, Other (intubated) Respiratory: Lungs Clear, Normal Breath Sounds Cardiovascular: Regular Rate, Rhythm Results/Procedures Lab Laboratory Tests 08/29/22 03:35 Patient resulted labs reviewed. Imaging: Reviewed Imaging Report Assessment/Plan Assessment and Plan Assess & Plan/Chief Complaint Assess & Plan/Chief Complaint Adenocarinoma of ascending colon s/p partial colon and intraperitoneal mass resection -08/23 anastomotic leak noted -drain placed by surgery, monitoring -output from drain 465mL -BM + Septic shock AHRF Pneumonia -NorE, vaso paused, MAPs in 70s-90s over 24 hours -propofol paused since yesterday -cxr reviewed -blood cx grew nml skin edward x1 -sputum culture obtained from ET tube grew p aeru, on meropenem -awaiting susceptibility -Plan for SBT today, wean off vent as tolerated RA Fluid Overload -Rise to >3 creatinine, trending down, 0/9 today -30kg weight gain since 08/18 -very edematous on exam, improved today -having adequate urine output -nephro on board, happy with urine output Seizure d/o -on IV keppra, continue Hx of HTN -monitor Microcytic Anemia -received 3x blood transfusions so far. -Hgb trending up -grandaughter noted hx of iron deficiency anemia -ordering iron studies Dispo: very fluid overloaded, improving. Weaning off vent with SBT today. possible extubation soon if breathing improves. Only requiring 30% o2 with good o2 sats. Critical Care Ventilator Management KOBY FREDERICK DO Aug 29, 2022 07:15
[2022-08-29] MEDS: RT-ALBUTEROL SULF 2.5 MG/3 ML PRE-MIX VIAL INH SCH ×2 (08:04→20:23)
[2022-08-29 08:10] VITALS: BP 107/83
--- NOTE | 2022-08-29 08:17 | Progress Note - Surgery ---
ZAYALICE 08/29/22 0817: Subjective Date Seen by a Provider: Aug 29, 2022 Time Seen by a Provider: 07:32 Subjective/Events-last exam Pt s/p Laparoscopic hand assisted R hemicolonectomy and diagnostic lap with abd washout Pt intubated and sleeping comfortably. Pt is able to roused and answer simple questions. Pt states that she is still having abd pain that she feels is not well controlled on her current pain medication. R and L RICCARDO drains contain scant serous fluid and wound vac contains serous fluid as well. SBT was attempted yesterday but pt became fatigued after ~5minutes and was placed back on mechanical ventilation. Pt is still coughing and producing sputum. CXR on 08/28 showed increasing infiltrate-like opacity in the R perihilar region and basilar region as well as a small effusion along with probable component of interstitial edema. Last BM was today. WBC today is unchanged from yesterday at 15.6. Was stool occult + on 08/26 but hgb remains stable, positive stool occult likely due to recent colon resections and anastomosis. Review of Systems limited d/t pt intubation and agitation Objective Exam Vital Signs Date Time Temp Pulse Resp B/P (MAP) Pulse Ox O2 Delivery O2 Flow Rate FiO2 08/29/22 07:00 95 14 132/59 (83) 98 Mechanical Ventilator 21.00 08/29/22 07:00 95 08/29/22 06:00 97 24 149/65 (93) 97 Mechanical Ventilator 21.00 08/29/22 05:00 90 22 118/54 (75) 94 Mechanical Ventilator 21.00 08/29/22 04:00 36.2 100 Mechanical Ventilator 21.00 08/29/22 04:00 100 Mechanical Ventilator 21 08/29/22 04:00 88 21 115/50 (71) 95 Mechanical Ventilator 21.00 08/29/22 03:05 88 115/50 08/29/22 03:00 87 21 108/49 (68) 95 Mechanical Ventilator 21.00 08/29/22 02:06 84 22 94 21 08/29/22 02:00 85 22 107/46 (66) 93 Mechanical Ventilator 21.00 08/29/22 01:11 84 08/29/22 01:00 82 22 102/50 (67) 94 Mechanical Ventilator 21.00 08/29/22 00:00 87 20 131/63 (85) 97 Mechanical Ventilator 21.00 08/28/22 23:33 82 144/74 08/28/22 23:31 95 Mechanical Ventilator 21 08/28/22 23:30 35.7 95 Mechanical Ventilator 21.00 08/28/22 23:00 85 20 138/56 (83) 95 Mechanical Ventilator 21.00 08/28/22 22:33 82 22 97 21 08/28/22 22:00 82 20 144/74 (97) 100 Mechanical Ventilator 30.00 08/28/22 21:00 90 20 155/90 (111) 98 Mechanical Ventilator 30.00 08/28/22 20:00 86 21 135/70 (91) 96 Mechanical Ventilator 30.00 08/28/22 19:39 97 Mechanical Ventilator 21 08/28/22 19:07 91 08/28/22 19:00 89 21 137/72 (93) 96 Mechanical Ventilator 30.00 08/28/22 18:58 96 22 97 21 08/28/22 18:00 92 23 145/74 (100) 96 Mechanical Ventilator 30.00 08/28/22 17:00 93 17 153/76 (100) 96 Mechanical Ventilator 30.00 08/28/22 16:00 97 22 153/77 (101) 95 Mechanical Ventilator 30.00 08/28/22 16:00 96 Mechanical Ventilator 21 08/28/22 15:00 98 24 152/74 (100) 95 Mechanical Ventilator 30.00 08/28/22 14:00 94 22 142/69 (96) 98 Mechanical Ventilator 30.00 08/28/22 13:46 94 22 98 21 08/28/22 13:45 95 24 96 21 08/28/22 13:27 96 26 96 21 08/28/22 13:09 99 136/73 08/28/22 13:00 99 08/28/22 13:00 100 22 148/83 (100) 98 Mechanical Ventilator 30.00 08/28/22 12:00 95 Mechanical Ventilator 21 08/28/22 12:00 100 24 140/73 (96) 94 Mechanical Ventilator 30.00 08/28/22 11:50 36.4 08/28/22 11:00 100 21 136/73 (91) 98 Mechanical Ventilator 30.00 08/28/22 10:00 104 21 98 30 3/4/23 10:00 103 21 144/88 (104) 98 Mechanical Ventilator 30.00 08/28/22 09:00 98 25 145/85 (107) 99 Mechanical Ventilator 21.00 I & O 08/29/22 07:00 Intake Total 1760 ml Output Total 2870 ml Balance -1110 ml Capillary Refill : Less Than 3 Seconds General Appearance: No Apparent Distress, WD/WN, Chronically ill, Other (i ntubated) HEENT: PERRL/EOMI, Other (intubated) Neck: Non Tender, Supple Respiratory: No Accessory Muscle Use, No Respiratory Distress, Crackles (present diffusely in b/l lungs) Cardiovascular: No JVD, No Murmur, Tachycardia Gastrointestinal: soft, distended (minimal), tenderness (diffusely), other (Wound VAC in place, some some tissue granulation present incision, serous fluid in drains in L and R drains) Extremity: Pedal Edema (1-2+ BL -unchanged from previous exam), Swelling (UE B/L- unchanged from previous exam) Neurologic/Psychiatric: Alert, No Motor/Sensory Deficits Skin: Normal Color, Warm/Dry Lymphatic: No Adenopathy Results Lab Laboratory Tests 08/28/22 12:00: Glucometer 120H 08/28/22 17:54: Glucometer 121H 08/28/22 23:09: Glucometer 110 08/29/22 03:35: White Blood Count 15.6H, Red Blood Count 3.45L, Hemoglobin 8.3L, Hematocrit 25L, Mean Corpuscular Volume 73L, Mean Corpuscular Hemoglobin 24L, Mean Corpuscular Hemoglobin Concent 33, Red Cell Distribution Width 24.2H, Platelet Count 334, Mean Platelet Volume 10.2, Immature Granulocyte % (Auto) 5, Neutrophils (%) (Auto) 78H, Lymphocytes (%) (Auto) 6L, Monocytes (%) (Auto) 8, Eosinophils (%) (Auto) 2, Basophils (%) (Auto) 0, Neutrophils # (Auto) 12.2H, Lymphocytes # (Auto) 0.9L, Monocytes # (Auto) 1.2H, Eosinophils # (Auto) 0.4H, Basophils # (Auto) 0.1, Immature Granulocyte # (Auto) 0.9H, Sodium Level 139, Potassium Level 3.8, Chloride Level 107, Carbon Dioxide Level 21, Anion Gap 11, Blood Urea Nitrogen 38H, Creatinine 0.89, Estimat Glomerular Filtration Rate 67, BUN/Creatinine Ratio 43, Glucose Level 114H, Calcium Level 8.0L, Phosphorus Level 3.3, Magnesium Level 2.0, Total Bilirubin 0.7, Direct Bilirubin 0.5H, Indirect Bilirubin 0.2, Aspartate Amino Transf (AST/SGOT) 39H, Alanine Aminotransferase (ALT/SGPT) 16, Alkaline Phosphatase 73, Total Protein 4.8L, Albumin 2.2L Microbiology 08/23/22 Gram Stain - Final, Complete 08/23/22 Sputum Culture - Final, Complete Pseudomonas aeruginosa Mixed Bacterial Maida 08/22/22 Blood Culture - Final, Complete Streptococcus mitis group See Comments 08/22/22 Urine Culture - Final, Complete NO GROWTH Assessment/Plan Assessment/Plan Assessment/Plan S/P DAY 8 Laparoscopic hand assisted right hemicolectomy S/P DAY 5 Diagnostic lap with abd washout and colon resection and re-anastamosis Septic shock secondary to S. viridins-resolved RA-improving Anemia-stable Leukocytosis-improving Continue Meropenem continue pain medication continue IVF continue tube feeds and PO medication as tolerated via tube continue to monitor Hgb, transfuse <7 MONICO TYSON DO 08/29/22 1242: Subjective Subjective/Events-last exam Intubated and wakes up to questions. Pain slightly improved. Wound vac in place. Drains serous drainage. Less swelling in upper extremities. Tolerating tube feeds. Tying to wean to extubate. Objective Exam General Appearance: No Apparent Distress, Chronically ill, Other (intubated) HEENT: PERRL/EOMI, Normal ENT Inspection, Other (intubated) Neck: Non Tender, Supple Respiratory: Chest Non Tender, No Accessory Muscle Use, No Respiratory Distress Cardiovascular: No JVD, Tachycardia Gastrointestinal: soft, distended (minimal), tenderness (diffusely miproving), other (Wound VAC in place, serous fluid in drains in L and R drains) Extremity: Pedal Edema (1-2+ BL -unchanged from previous exam), Swelling (UE B/L- less) Neurologic/Psychiatric: Alert Skin: Normal Color, Warm/Dry Lymphatic: No Adenopathy Assessment/Plan Assessment/Plan Assessment/Plan S/P DAY 9 Laparoscopic hand assisted right hemicolectomy S/P DAY 6 Diagnostic lap with abd washout and colon resection and re-anastamosis Septic shock secondary to S. viridins-resolved RA-improving Anemia-stable Leukocytosis-same Continue Meropenem continue pain medication continue IVF continue tube feeds and PO medication as tolerated via tube continue to monitor Hgb, transfuse <7 Hope to extubate soon. Wound vac in place Supervisory-Addendum Brief Verification & Attestation Participated in pt care: history, MDM, physical Personally performed: exam, history, MDM, supervision of care Care discussed with: Medical Student Procedures: n/a Results interpretation: Verified all documentation Verification and Attestation of Medical Student E/M Service A medical student performed and documented this service in my presence. I reviewed and verified all information documented by the medical student and made modifications to such information, when appropriate. I personally performed the physical exam and medical decision making. Monico Tyson Aug 29, 2022,12:42 ALICE COLLAZO Aug 29, 2022 08:17 MONICO TYSON DO Aug 29, 2022 12:42
[2022-08-29] MEDS: PROPOFOL DRIP (ICU) 100 ML IV SCH ×3 (08:28→23:14)
[2022-08-29] MEDS: MEROPENEM 500 MG/NS 100 ML IVPB IV SCH ×6 (08:37→23:14)
[2022-08-29] MEDS: PANTOPRAZOLE 40 MG (PROTONIX) VIAL IVP SCH (08:37)
[2022-08-29] MEDS: VITAMIN D3 25 MCG (1,000 UNITS) TABLET PO SCH (08:38)
[2022-08-29] MEDS: levETIRAcetam 1000 mg/NS 100ml IVPB IV SCH ×2 (08:38→20:40)
[2022-08-29] MEDS: risperiDONE 0.5 MG (RisperDAL) TABLET PO SCH ×2 (08:38→20:40)
[2022-08-29] MEDS: OXYBUTYNIN (DITROPAN) 5 MG TAB PO SCH ×2 (08:38→20:40)
[2022-08-29] MEDS: lisINopril 20 MG (PRINIVIL) TABLET PO SCH (08:38)
--- NOTE | 2022-08-29 09:24 | Cardiology Progress Note ---
Subjective Date Seen by Provider: Aug 29, 2022 Time Seen by Provider: 09:00 Subjective/Events-last exam Patient was seen at bedside, laying down in bed, ventilator dependent Review of Systems General: No Chills, No Night Sweats, No Fatigue, No Malaise, No Appetite; Other (Unable to provide review of system) HEENT: No Head Aches, No Visual Changes, No Eye Pain, No Ear Pain, No Dysphasia, No Sinus Congestion, No Post Nasal Drip, No Sore Throat, No Other Objective-Cardiology Exam Last Set of Vital Signs Vital Signs 08/30/22 08/30/22 08/30/22 00:00 06:43 08:00 Temp 36.9 Pulse 97 Resp 22 B/P (MAP) 118/54 (75) Pulse Ox 100 O2 Delivery Mechanical Ventilator O2 Flow Rate 21.00 FiO2 30 I&O Intake and Output 08/30/22 00:00 Intake Total 1800 ml Output Total 1300 ml Balance 500 ml IV Total 300 ml Tube Feeding 1200 ml Other 300 ml Output Urine Total 975 ml Drainage Total 325 ml # Bowel Movements 1 General: Other (intubated) Lungs: Normal Air Movement, Other Heart: Other (tachycardic) Abdomen: Normal Bowel Sounds, Soft Extremities: Other (2+ pitting edema) Skin: No Rashes, No Significant Lesion Neuro: Other (Intubated, following commands) Psych/Mental Status: Other (Intubated) Results Lab Laboratory Tests 08/30/22 03:40 A/P-Cardiology Admission Diagnosis Septic shock Hypotension Adenocardinoma Assessment/Plan Adenocarinoma of ascending colon, s/p partial colon and intraperitoneal mass resection Status post acute abdomen on August 23, 2022 underwent exploratory laparotomy, anastomosis leak was noted Currently having a drain, managed by surgical team Septic shock, hypotensive, tachycardic, respiratory failure Currently blood pressure and heart rate are better Currently off pressors Has significant peripheral edema, I will give Lasix 40 mg IV and evaluate response Ventilator dependent respiratory failure, Currently off sedation, multiple weaning trials. Managed by medical team Sinus tachycardia secondary to sepsis Continue with supportive care History of hypertension Currently hypotensive, maintained on IV fluid and Levophed Continue to monitor Nonobstructive carotid artery stenosis per carotid duplex done Jul 2022. NORMA DIAMOND MD Aug 29, 2022 09:24
[2022-08-29 10:20] VITALS: BP 113/50
--- NOTE | 2022-08-29 10:32 | Tele-ICU Progress Note ---
Subjective Date Seen by a Provider: Aug 29, 2022 Time Seen by a Provider: 10:26 Subjective/Events-last exam Tele-ICU Physician , consultation) Available chart/ vitals / labs / Images reviewed H&P is from ER notes Patient's information available about PMH, allergy reviewed in EMR. ROS as per chart and RN report Video assessment done using teleICU camera, rest of exam as per RN Discussed with RN. She is a 76-year-old female who is morbidly obese apparently found to have adenocarcinoma of the ascending colon for which she underwent right hemicolectomy on 08/18/2022 and postoperatively she was recuperating and surgical floor and today she developed a respiratory distress hypoxia, hypotension. Her lactic acid is elevated. Also her urine output is decreased. She has signs and symptoms of sepsis hence she is transferred to the intensive care unit and started on IV Levophed. She is also placed on a BiPAP ventilation. Her abdomen is markedly distended and tender suspicious for some acute process. Hence she is being taken to operating room for diagnostic laparoscopy and further evaluati on. It is expected that she would come back on mechanical ventilation. 08/27/22 she remained on vent. she failed SBT on 08/27/22. today she is off sedation, no pressors. on vent rr/21%/450/5. Impression 1. Acute hypoxic respiratory failure secondary to possible underlying sepsis, pneumonia and bibasilar atelectasis slowly improving, on vent 2. Hypotension secondary to possible sepsis improved 3. Lactic acidosis secondary to sepsis resolved 4. 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, had anastomotic leak requiring resection of colon again 5. Morbid obesity. 6. Perioperative anemia stable. Recommendations 1. We will try on sbt again on 30% fio2 and ps 10 and see the response 2. continue antibiotics 3. DVT prophylaxis and ulcer prophylaxis Coordination of care with bedside consultants and primary care physician Sepsis Event Evaluation Height, Weight, BMI Height: 5'4.00" Weight: 193lbs. 3.0oz. [id number]; 40.63 BMI Method: Exam Exam Patient acknowledged, consented, and participated in this virtual visit which was conducted using real time audio/video Vital Signs Date Time Temp Pulse Resp B/P (MAP) Pulse Ox O2 Delivery O2 Flow Rate FiO2 08/29/22 10:20 97 22 94 21 08/29/22 10:00 93 22 113/50 (70) 93 Mechanical Ventilator 21.00 08/29/22 09:00 101 24 133/58 (81) 93 Mechanical Ventilator 21.00 08/29/22 08:28 97 107/83 08/29/22 08:10 97 22 96 21 08/29/22 08:00 96 22 121/54 (77) 95 Mechanical Ventilator 21.00 08/29/22 07:00 95 14 132/59 (83) 98 Mechanical Ventilator 21.00 08/29/22 07:00 95 08/29/22 06:00 97 24 149/65 (93) 97 Mechanical Ventilator 21.00 08/29/22 05:00 90 22 118/54 (75) 94 Mechanical Ventilator 21.00 08/29/22 04:00 36.2 100 Mechanical Ventilator 21.00 08/29/22 04:00 100 Mechanical Ventilator 21 08/29/22 04:00 88 21 115/50 (71) 95 Mechanical Ventilator 21.00 08/29/22 03:05 88 115/50 08/29/22 03:00 87 21 108/49 (68) 95 Mechanical Ventilator 21.00 08/29/22 02:06 84 22 94 21 08/29/22 02:00 85 22 107/46 (66) 93 Mechanical Ventilator 21.00 08/29/22 01:11 84 08/29/22 01:00 82 22 102/50 (67) 94 Mechanical Ventilator 21.00 08/29/22 00:00 87 20 131/63 (85) 97 Mechanical Ventilator 21.00 08/28/22 23:33 82 144/74 08/28/22 23:31 95 Mechanical Ventilator 21 08/28/22 23:30 35.7 95 Mechanical Ventilator 21.00 08/28/22 23:00 85 20 138/56 (83) 95 Mechanical Ventilator 21.00 08/28/22 22:33 82 22 97 21 08/28/22 22:00 82 20 144/74 (97) 100 Mechanical Ventilator 30.00 08/28/22 21:00 90 20 155/90 (111) 98 Mechanical Ventilator 30.00 08/28/22 20:00 86 21 135/70 (91) 96 Mechanical Ventilator 30.00 08/28/22 19:39 97 Mechanical Ventilator 21 08/28/22 19:07 91 08/28/22 19:00 89 21 137/72 (93) 96 Mechanical Ventilator 30.00 08/28/22 18:58 96 22 97 21 08/28/22 18:00 92 23 145/74 (100) 96 Mechanical Ventilator 30.00 08/28/22 17:00 93 17 153/76 (100) 96 Mechanical Ventilator 30.00 08/28/22 16:00 97 22 153/77 (101) 95 Mechanical Ventilator 30.00 08/28/22 16:00 96 Mechanical Ventilator 21 08/28/22 15:00 98 24 152/74 (100) 95 Mechanical Ventilator 30.00 08/28/22 14:00 94 22 142/69 (96) 98 Mechanical Ventilator 30.00 08/28/22 13:46 94 22 98 21 08/28/22 13:45 95 24 96 21 08/28/22 13:27 96 26 96 21 08/28/22 13:09 99 136/73 08/28/22 13:00 99 08/28/22 13:00 100 22 148/83 (100) 98 Mechanical Ventilator 30.00 08/28/22 12:00 95 Mechanical Ventilator 21 08/28/22 12:00 100 24 140/73 (96) 94 Mechanical Ventilator 30.00 08/28/22 11:50 36.4 08/28/22 11:00 100 21 136/73 (91) 98 Mechanical Ventilator 30.00 I & O 08/29/22 07:00 Intake Total 1760 ml Output Total 2870 ml Balance -1110 ml Height & Weight Height: 5'4.00" Weight: 193lbs. 3.0oz. 87.515051vw; 40.63 BMI Method: General Appearance: No Apparent Distress, WD/WN, Chronically ill, Other (intubated) HEENT: PERRL/EOMI, Other (intubated) Neck: Non Tender, Supple Respiratory: No Accessory Muscle Use, No Respiratory Distress, Crackles (present diffusely in b/l lungs) Cardiovascular: No JVD, No Murmur, Tachycardia Capillary Refill: Less Than 3 Seconds Gastrointestinal: soft, distended (minimal), tenderness (diffusely), other (Wound VAC in place, some some tissue granulation present incision, serous fluid in drains in L and R drains) Extremity: Pedal Edema (1-2+ BL -unchanged from previous exam), Swelling (UE B/L- unchanged from previous exam) Neurologic/Psychiatric: Alert, No Motor/Sensory Deficits Skin: Normal Color, Warm/Dry Lymphatic: No Adenopathy Other comments PE PER RN Results Lab Laboratory Tests 08/28/22 03:05 08/29/22 03:35 Assessment/Plan Assessment/Plan ABOVE Critical Care: Critically Ill Patient Time spent with patient (mins): 25 ALEK MINOR MD Aug 29, 2022 10:32
[2022-08-29 10:45] LABS: ABG BASE EXCESS 1.1 MMOL/L (-2.5-2.5); ABG OXYGEN SATURATION 92 % (94-100); ABG PCO2 35 MMHG (35-45); ABG PH 7.47 (7.37-7.43); ABG PO2 61 MMHG (79-93); ABG TCO2 25.4 MMOL/L (21.0-31.0); ALLENS TEST YES-POS
[2022-08-29 10:46] LABS: INSPIRED O2 21%; PATIENT TEMP 37.8; VENTILATOR YES
[2022-08-29 13:43] VITALS: BP 149/64
[2022-08-29 18:44] VITALS: BP 117/53
[2022-08-29 20:25] VITALS: BP 117/53
[2022-08-29] MEDS: DONEPEZIL 10 MG (ARICEPT) TAB PO SCH (20:40)
[2022-08-29] MEDS: PRAMIPEXOLE 0.125 MG (MIRAPEX) TABLET PO SCH (20:40)
[2022-08-30 01:54] VITALS: BP 109/52
[2022-08-30 03:51] LABS: BASOPHILS % (AUTO) 0 % (0-10); EOSINOPHILS # (AUTO) 0.5 10^3/uL (0.0-0.3); EOSINOPHILS % (AUTO) 3 % (0-10); HEMATOCRIT 25 % (35-52); HEMOGLOBIN 7.9 g/dL (11.5-16.0); LYMPHOCYTES # (AUTO) 1.1 10^3/uL (1.0-4.0); LYMPHOCYTES % (AUTO) 8 % (12-44); MEAN CORPUSCULAR HEMOGLOBIN 23 pg (25-34); MEAN CORPUSCULAR HGB CONC 32 g/dL (32-36); MEAN CORPUSCULAR VOLUME 73 fL (80-99); MEAN PLATELET VOLUME 10.4 fL (9.0-12.2); MONOCYTES # (AUTO) 1.2 10^3/uL (0.0-1.0); MONOCYTES % (AUTO) 9 % (0-12); NEUTROPHILS # (AUTO) 10.7 10^3/uL (1.8-7.8); NEUTROPHILS % (AUTO) 76 % (42-75); PLATELET COUNT 433 10^3/uL (130-400); WHITE BLOOD COUNT 14.1 10^3/uL (4.3-11.0)
[2022-08-30 03:57] LABS: POTASSIUM 4.3 MMOL/L (3.6-5.0)
[2022-08-30 03:58] LABS: CALCIUM 7.7 MG/DL (8.5-10.1)
[2022-08-30 03:59] LABS: TOTAL PROTEIN 4.7 GM/DL (6.4-8.2)
[2022-08-30 04:01] LABS: BILIRUBIN,TOTAL 0.6 MG/DL (0.1-1.0)
[2022-08-30 04:02] LABS: PHOSPHORUS 2.9 MG/DL (2.3-4.7)
[2022-08-30 04:03] LABS: CREATININE SERUM 0.79 MG/DL (0.60-1.30)
[2022-08-30 04:04] LABS: BILIRUBIN,DIRECT 0.4 MG/DL (0.0-0.3); BILIRUBIN,INDIRECT 0.2 MG/DL
[2022-08-30] MEDS: inSUlin ASPART (NovoLOG) 1 UNIT/0.01 ML (CHARGE PER UNIT) SC SCH ×4 (04:10→23:41)
[2022-08-30] MEDS: KCL 20 MEQ TAB (K-DUR) PO SCH (04:10)
[2022-08-30] MEDS: MAGNESIUM 1 GM/100 ML IVPB 100 ML IV SCH (04:10)
[2022-08-30] MEDS: POTASSIUM CL 10MEQ/50ML IVPB 50 ML IV SCH (04:10)
[2022-08-30] MEDS: morphine INJ 4 MG/ML 1 ML (VIAL/SYRINGE) IVP PRN ×5 (04:35→18:27)
--- NOTE | 2022-08-30 06:35 | Progress Note - Surgery ---
DARRON HIGGINS 08/30/22 0635: Subjective Date Seen by a Provider: Aug 30, 2022 Time Seen by a Provider: 05:50 Subjective/Events-last exam Patient mechanically ventilated, off of propofal since 08/26. She is rousable and able to follow commands and answer questions; today, she appears uncomfortable and motions to her abdominal region, but shakes her head no when asked if she has pain in the region or pain otherwise. RICCARDO bag is draining serous fluid. Per nursing, her wound vac has been draining minimal, serous fluid. Urine output ~ 575 mL since 7pm last evening. She is continuing to cough and per nursing, has been producing "mucous" like sputum. They performed multiple lavages over the weekend. E-ICU continues to attempt weaning off ventilation. Review of Systems Gastrointestinal: No: Nausea, Vomiting, Abdominal Pain Objective Exam Vital Signs Date Time Temp Pulse Resp B/P (MAP) Pulse Ox O2 Delivery O2 Flow Rate FiO2 08/30/22 06:00 93 20 104/57 (73) 99 Mechanical Ventilator 21.00 08/30/22 05:00 94 20 109/51 (70) 100 Mechanical Ventilator 21.00 08/30/22 04:00 98 Mechanical Ventilator 25 08/30/22 04:00 98 20 136/66 (89) 97 Mechanical Ventilator 21.00 08/30/22 03:00 93 22 108/50 (69) 95 Mechanical Ventilator 21.00 08/30/22 02:00 98 22 105/47 (66) 95 Mechanical Ventilator 21.00 08/30/22 01:54 94 22 96 25 08/30/22 01:00 92 21 110/51 (70) 97 Mechanical Ventilator 21.00 08/30/22 00:23 89 08/30/22 00:00 36.9 99 Mechanical Ventilator 21.00 08/30/22 00:00 89 21 109/52 (71) 96 Mechanical Ventilator 21.00 08/29/22 23:59 96 Mechanical Ventilator 25 08/29/22 23:14 90 113/55 08/29/22 23:00 90 21 113/55 (74) 96 Mechanical Ventilator 21.00 08/29/22 22:00 92 22 101/50 (67) 95 Mechanical Ventilator 21.00 08/29/22 21:00 89 21 102/47 (65) 99 Mechanical Ventilator 21.00 08/29/22 20:25 90 22 100 30 08/29/22 20:00 100 Mechanical Ventilator 30 08/29/22 20:00 94 20 107/52 (70) 100 Mechanical Ventilator 21.00 08/29/22 20:00 36.2 100 Mechanical Ventilator 21.00 08/29/22 19:00 92 21 115/53 (73) 98 Mechanical Ventilator 21.00 08/29/22 18:59 91 08/29/22 18:44 95 22 98 21 08/29/22 18:00 93 23 117/53 (82) 98 Mechanical Ventilator 21.00 08/29/22 17:00 93 22 116/58 (77) 98 Mechanical Ventilator 21.00 08/29/22 16:00 96 12 175/117 (137) 98 Mechanical Ventilator 21.00 08/29/22 16:00 99 Mechanical Ventilator 21 08/29/22 15:00 94 15 159/77 (107) 95 Mechanical Ventilator 21.00 08/29/22 14:00 101 12 154/73 (97) 95 Mechanical Ventilator 21.00 08/29/22 13:43 102 26 95 21 08/29/22 13:00 96 21 149/64 (97) 92 Mechanical Ventilator 21.00 08/29/22 12:51 103 08/29/22 12:28 37.0 08/29/22 12:00 100 Mechanical Ventilator 21 08/29/22 12:00 97 23 147/75 (113) 93 Mechanical Ventilator 21.00 08/29/22 11:00 93 22 93 Mechanical Ventilator 21.00 08/29/22 10:20 97 22 94 21 08/29/22 10:00 93 22 113/50 (70) 93 Mechanical Ventilator 21.00 08/29/22 09:00 101 24 133/58 (81) 93 Mechanical Ventilator 21.00 08/29/22 08:28 97 107/83 08/29/22 08:10 97 22 96 21 08/29/22 08:00 96 22 121/54 (77) 95 Mechanical Ventilator 21.00 08/29/22 08:00 100 Mechanical Ventilator 21 08/29/22 07:00 95 14 132/59 (83) 98 Mechanical Ventilator 21.00 08/29/22 07:00 95 I & O 08/30/22 07:00 Intake Total 1700 ml Output Total 1300 ml Balance 400 ml Capillary Refill : Less Than 3 Seconds General Appearance: Chronically ill, Other (intubated) HEENT: Pharynx Normal, Moist Mucous Membranes, Other (intubated) Neck: Non Tender, Supple Respiratory: Lungs Clear, Normal Breath Sounds Cardiovascular: Regular Rate, Rhythm Gastrointestinal: soft, distended (minimal, improvement from previous examination), tenderness (diffusely, improving), other (Wound VAC in place, serous fluid in drains in L and R drains) Extremity: Pedal Edema (BL - improved from previous exam), Swelling (UE B/L- improved from previous exam) Neurologic/Psychiatric: Alert Skin: Normal Color, Warm/Dry Lymphatic: No Adenopathy Results Lab Laboratory Tests 08/29/22 10:35: Blood Gas Puncture Site RIGHT, Blood Gas Patient Temperature 37.8, Arterial Blood pH 7.47H, Arterial Blood Partial Pressure CO2 35, Arterial Blood Partial Pressure O2 61L, Arterial Blood HCO3 24, Arterial Blood Total CO2 25.4, Arterial Blood Oxygen Saturation 92L, Arterial Blood Base Excess 1.1, Aiden Test YES-POS, Blood Gas Ventilator Setting YES, Blood Gas Inspired Oxygen 21% 08/29/22 11:39: Glucometer 107 08/29/22 11:56: Glucometer 117H 08/29/22 17:02: Glucometer 110 08/29/22 23:14: Glucometer 103 08/30/22 03:40: White Blood Count 14.1H, Red Blood Count 3.37L, Hemoglobin 7.9L, Hematocrit 25L, Mean Corpuscular Volume 73L, Mean Corpuscular Hemoglobin 23L, Mean Corpuscular Hemoglobin Concent 32, Red Cell Distribution Width 25.2H, Platelet Count 433H, Mean Platelet Volume 10.4, Immature Granulocyte % (Auto) 4, Neutrophils (%) (Auto) 76H, Lymphocytes (%) (Auto) 8L, Monocytes (%) (Auto) 9, Eosinophils (%) (Auto) 3, Basophils (%) (Auto) 0, Neutrophils # (Auto) 10.7H, Lymphocytes # (Auto) 1.1, Monocytes # (Auto) 1.2H, Eosinophils # (Auto) 0.5H, Basophils # (Auto) 0.0, Immature Granulocyte # (Auto) 0.6H, Sodium Level 140, Potassium Level 4.3, Chloride Level 110H, Carbon Dioxide Level 20L, Anion Gap 10, Blood Urea Nitrogen 38H, Creatinine 0.79, Estimat Glomerular Filtration Rate 77, BUN/Creatinine Ratio 48, Glucose Level 105, Calcium Level 7.7L, Phosphorus Level 2.9, Magnesium Level 2.0, Total Bilirubin 0.6, Direct Bilirubin 0.4H, Indirect Bilirubin 0.2, Aspartate Amino Transf (AST/SGOT) 35H, Alanine Aminotransferase (ALT/SGPT) 18, Alkaline Phosphatase 58, Total Protein 4.7L, Albumin 2.0L Microbiology 08/23/22 Gram Stain - Final, Complete 08/23/22 Sputum Culture - Final, Complete Pseudomonas aeruginosa Mixed Bacterial Maida 08/22/22 Blood Culture - Final, Complete Streptococcus mitis group See Comments 08/22/22 Urine Culture - Final, Complete NO GROWTH Assessment/Plan Assessment/Plan Assessment/Plan S/P DAY 9 Laparoscopic hand assisted right hemicolectomy S/P DAY 6 Diagnostic lap with abd washout and colon resection and re-anastamosis Septic shock secondary to S. viridins-resolved RA-resolved Anemia-stable Leukocytosis-same Continue Meropenem continue pain medication continue IVF continue tube feeds and PO medication as tolerated via tube continue to monitor Hgb, transfuse <7 Hope to extubate soon. Wound vac in place KOURTNEY ARAGON DO 08/30/22 1124: Subjective Time Seen by a Provider: 10:43 Subjective/Events-last exam Pt seen and examined, still on vent but arousable and can squeeze hand to answer some questions. I was in room as the wound VAC was being changed. Nurse states pt is having small BMs. Review of Systems General: Fatigue Gastrointestinal: No: Nausea, Vomiting, Abdominal Pain Neurological: Weakness Objective Exam General Appearance: Chronically ill, Other (intubated) HEENT: Moist Mucous Membranes, Other (ET tube in place) Respiratory: Lungs Clear, Normal Breath Sounds, Other (mechanical ventilation) Gastrointestinal: soft, distended (minimal, improvement from previous examination), tenderness (diffusely, improving), other (Wound VAC taken down and midline incision looks great, serous fluid in drains in L and R drains) Extremity: Pedal Edema (BL - improved from previous exam), Swelling (UE B/L- improved from previous exam) Neurologic/Psychiatric: Alert Assessment/Plan Assessment/Plan Assessment/Plan S/P DAY 9 Laparoscopic hand assisted right hemicolectomy S/P DAY 6 Diagnostic lap with abd washout and colon resection and re-anastamosis Septic shock secondary to S. viridins-resolved RA-resolved Anemia-stable Leukocytosis-same Continue Meropenem, continue pain medication, continue IVF continue tube feeds and PO medication as tolerated via tube continue to monitor Hgb, transfuse <7 Hope to extubate soon. Wound vacchanged, change again on Supervisory-Addendum Brief Verification & Attestation Participated in pt care: history, MDM, physical Personally performed: exam, history, MDM, supervision of care Care discussed with: Medical Student Procedures: n/a Verification and Attestation of Medical Student E/M Service A medical student performed and documented this service. I then reviewed and verified all information documented by the medical student and made modifications to such information, when appropriate. I personally performed a physical exam, medical decision making and then discussed any differences between the notes and made revisions as necessary to create one note. Kourtney Aragon , 08/30/22 , 11:24 DARRON HIGGINS Aug 30, 2022 06:35 KOURTNEY ARAGON DO Aug 30, 2022 11:24
[2022-08-30] MEDS: RT-ALBUTEROL SULF 2.5 MG/3 ML PRE-MIX VIAL INH SCH ×2 (06:42→18:35)
[2022-08-30 06:43] VITALS: BP 104/57
[2022-08-30] MEDS: ACETAMINOPHEN 500 MG TAB (TYLENOL) PO SCH ×3 (08:33→23:40)
[2022-08-30] MEDS: risperiDONE 0.5 MG (RisperDAL) TABLET PO SCH ×2 (08:33→20:30)
[2022-08-30] MEDS: PANTOPRAZOLE 40 MG (PROTONIX) VIAL IVP SCH (08:33)
[2022-08-30] MEDS: VITAMIN D3 25 MCG (1,000 UNITS) TABLET PO SCH (08:33)
[2022-08-30] MEDS: lisINopril 20 MG (PRINIVIL) TABLET PO SCH (08:33)
[2022-08-30] MEDS: OXYBUTYNIN (DITROPAN) 5 MG TAB PO SCH ×2 (08:33→20:30)
[2022-08-30] MEDS: MEROPENEM 500 MG/NS 100 ML IVPB IV SCH ×6 (08:34→23:41)
--- NOTE | 2022-08-30 09:12 | Cardiology Progress Note ---
Subjective Date Seen by Provider: Aug 30, 2022 Time Seen by Provider: 09:09 Subjective/Events-last exam Patient was seen at bedside, ventilator dependent Review of Systems General: Other (Unable to provide review of system) Objective-Cardiology Exam Last Set of Vital Signs Vital Signs 08/30/22 08/30/22 08/30/22 00:00 06:43 08:00 Temp 36.9 Pulse 97 Resp 22 B/P (MAP) 118/54 (75) Pulse Ox 100 O2 Delivery Mechanical Ventilator O2 Flow Rate 21.00 FiO2 30 I&O Intake and Output 08/30/22 00:00 Intake Total 1800 ml Output Total 1300 ml Balance 500 ml IV Total 300 ml Tube Feeding 1200 ml Other 300 ml Output Urine Total 975 ml Drainage Total 325 ml # Bowel Movements 1 General: Other (intubated) Lungs: Normal Air Movement, Other Heart: Other (tachycardic) Abdomen: Normal Bowel Sounds, Soft Extremities: Other (2+ pitting edema) Skin: No Rashes, No Significant Lesion Neuro: Other (Intubated, following commands) Psych/Mental Status: Other (Intubated) Results Lab Laboratory Tests 08/30/22 03:40 A/P-Cardiology Admission Diagnosis Septic shock Hypotension Adenocardinoma Assessment/Plan Adenocarinoma of ascending colon, s/p partial colon and intraperitoneal mass resection Status post acute abdomen on August 23, 2022 underwent exploratory laparotomy, anastomosis leak was noted Currently having a drain, managed by surgical team Septic shock, hypotensive, tachycardic, respiratory failure Currently blood pressure and heart rate are better Currently off pressors Has significant peripheral edema, I will give Lasix 40 mg IV and evaluate response Ventilator dependent respiratory failure, Currently off sedation, multiple weaning trials. Managed by medical team Sinus tachycardia secondary to sepsis Continue with supportive care History of hypertension Currently hypotensive, maintained on IV fluid and Levophed Continue to monitor Nonobstructive carotid artery stenosis per carotid duplex done Jul 2022. NORMA DIAMOND MD Aug 30, 2022 09:12
[2022-08-30] MEDS: PROPOFOL DRIP (ICU) 100 ML IV SCH ×2 (09:26→17:57)
[2022-08-30] MEDS ORDERED: FUROSEMIDE 40 MG/4 ML INJ (LASIX) IVP NR (09:30)
[2022-08-30 10:30] VITALS: BP 115/56
[2022-08-30] MEDS: HYPOCHLOROUS ACID/NaCl (VASHE) 250 ML IR PRN (11:29)
[2022-08-30] MEDS: levETIRAcetam 1000 mg/NS 100ml IVPB IV SCH ×2 (11:29→20:30)
--- NOTE | 2022-08-30 12:08 | Progress Note - Hospitalist ---
KAYA SANCHES 08/30/22 1208: Subjective HPI/CC On Admission Date Seen by Provider: Aug 30, 2022 Time Seen by Provider: 09:00 Roseann has been off of pressors and propofol since Tuesday. She is satting well into 90s with vent at FiO2 30%. She nods her head when asked if she can hear me, squeezes hand on command. SBT over weekend was unsuccessful. Good UOP with minor edema on exam. Review of Systems HEENT: No Visual Changes Cardiovascular: No: Chest Pain Gastrointestinal: No: Abdominal Pain Objective Exam Vital Signs Vital Signs Date Time Temp Pulse Resp B/P (MAP) Pulse Ox O2 Delivery O2 Flow Rate FiO2 08/30/22 11:00 95 19 101/60 (74) 99 Mechanical Ventilator 21.00 08/30/22 10:30 30 08/30/22 00:00 36.9 Capillary Refill : Less Than 3 Seconds General Appearance: No Apparent Distress HEENT: PERRL/EOMI, Moist Mucous Membranes; No Scleral Icterus (L), No Scleral Icterus (R) Neck: Supple; No JVD Respiratory: Normal Breath Sounds, Other (on vent.) Cardiovascular: Regular Rate, Rhythm, No Gallop, No JVD, No Murmur, Normal Peripheral Pulses Gastrointestinal: Normal Bowel Sounds, Soft; No Distended Extremity: Normal Capillary Refill, No Pedal Edema Neurologic/Psychiatric: Alert, Motor Weakness Skin: Normal Color, Warm/Dry Results/Procedures Lab Laboratory Tests 08/30/22 03:40 Patient resulted labs reviewed. 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 -08/23 anastomotic leak noted -drain placed by surgery, monitoring -output from drain 465mL -BMx1 yesterday Septic shock AHRF Pneumonia -NorE, vaso paused, MAPs in 70s-90s over 24 hours -propofol paused since yesterday -cxr reviewed -blood cx grew nml skin edward x1 -sputum culture obtained from ET tube grew p aeru, on meropenem -awaiting susceptibility -SBT trials per icu team RA Fluid Overload -Rise to >3 creatinine, trending down, 1.82 today -30kg weight gain since 08/18 -very edematous on exam, improved today -having adequate urine output -nephro on board, happy with urine output -significantly improved edema on exam Seizure d/o -on IV keppra, continue Hx of HTN -monitor Microcytic Anemia -received 3x blood transfusions so far. -Hgb trending up -[facility] noted hx of iron deficiency anemia Dispo: Weaning off vent with SBT per icu team. Only requiring 30% o2 with good o2 sats. CLARISSA FREDERICK DO 08/31/22 0445: Supervisory-Addendum Brief Verification & Attestation Participated in pt care: history, MDM, physical Personally performed: exam, history, MDM, supervision of care Care discussed with: Medical Student Procedures: n/a Results interpretation: Verified all documentation Verification and Attestation of Medical Student E/M Service A medical student performed and documented this service in my presence. I reviewed and verified all information documented by the medical student and made modifications to such information, when appropriate. I personally performed the physical exam and medical decision making. Clarissa Frederick Aug 31, 2022,04:45 KAYA SANCHES Aug 30, 2022 12:08 CLARISSA FREDERICK DO Aug 31, 2022 04:45
--- NOTE | 2022-08-30 12:13 | Tele-ICU Progress Note ---
Subjective Date Seen by a Provider: Aug 30, 2022 Time Seen by a Provider: 12:10 Subjective/Events-last exam (Tele-ICU Physician , Progress Note ) Service provided via interactive audio and video telecommunications E-CARE system to a patient admitted to ICU bed in [facility]. Patient is seen today due to persistent need of ICU care Available chart/ vitals / labs / Images reviewed Video assessment done using teleICU camera, rest of exam as per RN Discussed with RN Events overnight : Afebrile hemodynamically stable Respiratory - 21 % I/O = pos VENT SETTINGS and ABG reviewed CANDIDATE for SBTreviewed possible contraindications including Cardiovascular Stability /Sedation Score / FI02/PEEP / ABG / CXR/ secretions Sedation, discussed with RN, RASS- -1 OFF [ropofol morphine qid prn Drips: off IV Pressors- OFF Hospital course: (08/18) 76F s/p Lap R hemicolectomy and excision of intraperitoneal mass. (08/22) to ICU with hypotension, tachycardia, and increased pain, r/o Intra- abdominal process - ?Anastomosis leak. CTA = Neg P Embolus. CT A/P = ?Asp PNA. (08/23) OR-Diagnostic Laparoscopy, laparotomy with colon resection and washout INTUBATED 08/24 - AC 16 40 % levo , added vaso 1 u PRBC transfused ( hb 6.6) , CR 3.4 - hydration and lasix x1 ( anuric ) renal consult , CVP 12 , Echo ef 55% 08/25 - AC 22 450 30% +6 , Cr 3 , Hb 6.6 - 2uPRBC , wound vac placed 08/25 , OFF LEVO , vaso 08/26- 30 % + 5 OFF levo A/P Acute hypoxic respiratory failure secondary to possible underlying sepsis, pneumonia and bibasilar atelectasis- INTUBATED 08/20 - AC 22 450 30% +6 -OFF sedation , CANDIDATE for SBT, planning ( hoping ) for liberation from vent soon Shock -?secondary to possible sepsis -pressors OFF 08/26 -ECHO 08/09/22 - EF 55% , RVSP 50 mmHg Sepsis ( off -clindamycin and gentamicin) - sputum + for PSA - changed to merrem 08/24 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 - as per sx , wound vac placed 08/25 RA resolved - follow with hydration , albumin , transfusion Volume overload - RVSP 50 mmHg , CVP12 - Cr improving , negative volume status now - HAS GOOD OU spontaneously , monitor , no need to initiate diuresis now ( but she is VO Anemia (Perioperative anemia hb 9 - no obvious bleeding -s/p transfusion 1 u PRBC 08/24 , and 2 u PRBC 08/25 Hyponatremia - resolved Pulm HTN - ECHO 08/09/22 RVSP 50 mmHg - fluid status as per renal now - follow Nutrition - as per Sx , no parental feeding post op 08/23--> ? TPN - as per sx LEFT leg tenderness 08/30 - Lines : L IJ 08/22 (Central Line Necessity Reviewed) Phillips: + OG: Nutrition: glycerna - up to goal Analgesia: Anxiety/ delirium VTE Prophylaxis: heparin sq if no active bleeding Stress Ulcer Prophylaxis: ppi Plans in collaboration with bedside consultants and IM MDs. Discussed with RN to reach out if any questions or concerns A total of 34 minutes of critical care time was devoted to this patient today, required to treat and/or prevent further deterioration of critical care condition ( as above ) . Sepsis Event Evaluation Height, Weight, BMI Height: 5'4.00" Weight: 193lbs. 3.0oz. 87.315064hg; 38.85 BMI Method: Exam Exam Patient acknowledged, consented, and participated in this virtual visit which was conducted using real time audio/video Vital Signs Date Time Temp Pulse Resp B/P (MAP) Pulse Ox O2 Delivery O2 Flow Rate FiO2 08/30/22 11:00 95 19 101/60 (74) 99 Mechanical Ventilator 21.00 08/30/22 10:30 100 26 98 30 08/30/22 10:00 98 18 115/56 (75) 98 Mechanical Ventilator 21.00 08/30/22 09:00 101 23 128/62 (84) 99 Mechanical Ventilator 21.00 08/30/22 08:00 97 22 118/54 (75) 100 Mechanical Ventilator 21.00 08/30/22 07:38 97 08/30/22 07:00 95 21 121/60 (80) 100 Mechanical Ventilator 21.00 08/30/22 06:43 95 23 97 30 08/30/22 06:00 93 20 104/57 (73) 99 Mechanical Ventilator 21.00 08/30/22 05:00 94 20 109/51 (70) 100 Mechanical Ventilator 21.00 08/30/22 04:00 98 Mechanical Ventilator 25 08/30/22 04:00 98 20 136/66 (89) 97 Mechanical Ventilator 21.00 08/30/22 03:00 93 22 108/50 (69) 95 Mechanical Ventilator 21.00 08/30/22 02:00 98 22 105/47 (66) 95 Mechanical Ventilator 21.00 08/30/22 01:54 94 22 96 25 08/30/22 01:00 92 21 110/51 (70) 97 Mechanical Ventilator 21.00 08/30/22 00:23 89 08/30/22 00:00 36.9 99 Mechanical Ventilator 21.00 08/30/22 00:00 89 21 109/52 (71) 96 Mechanical Ventilator 21.00 08/29/22 23:59 96 Mechanical Ventilator 25 08/29/22 23:14 90 113/55 08/29/22 23:00 90 21 113/55 (74) 96 Mechanical Ventilator 21.00 08/29/22 22:00 92 22 101/50 (67) 95 Mechanical Ventilator 21.00 08/29/22 21:00 89 21 102/47 (65) 99 Mechanical Ventilator 21.00 08/29/22 20:25 90 22 100 30 08/29/22 20:00 100 Mechanical Ventilator 30 08/29/22 20:00 94 20 107/52 (70) 100 Mechanical Ventilator 21.00 08/29/22 20:00 36.2 100 Mechanical Ventilator 21.00 08/29/22 19:00 92 21 115/53 (73) 98 Mechanical Ventilator 21.00 08/29/22 18:59 91 08/29/22 18:44 95 22 98 21 08/29/22 18:00 93 23 117/53 (82) 98 Mechanical Ventilator 21.00 08/29/22 17:00 93 22 116/58 (77) 98 Mechanical Ventilator 21.00 08/29/22 16:00 96 12 175/117 (137) 98 Mechanical Ventilator 21.00 08/29/22 16:00 99 Mechanical Ventilator 21 08/29/22 15:00 94 15 159/77 (107) 95 Mechanical Ventilator 21.00 08/29/22 14:00 101 12 154/73 (97) 95 Mechanical Ventilator 21.00 08/29/22 13:43 102 26 95 21 08/29/22 13:00 96 21 149/64 (97) 92 Mechanical Ventilator 21.00 08/29/22 12:51 103 08/29/22 12:28 37.0 I & O 08/30/22 07:00 Intake Total 1700 ml Output Total 1300 ml Balance 400 ml Height & Weight Height: 5'4.00" Weight: 193lbs. 3.0oz. 87.855019wn; 38.85 BMI Method: General Appearance: Chronically ill, Other (intubated) HEENT: Moist Mucous Membranes, Other (ET tube in place) Neck: Non Tender, Supple Respiratory: Lungs Clear, Normal Breath Sounds, Other (mechanical ventilation) Cardiovascular: Regular Rate, Rhythm Capillary Refill: Less Than 3 Seconds Gastrointestinal: soft, distended (minimal, improvement from previous examination), tenderness (diffusely, improving), other (Wound VAC taken down and midline incision looks great, serous fluid in drains in L and R drains) Extremity: Pedal Edema (BL - improved from previous exam), Swelling (UE B/L- improved from previous exam) Neurologic/Psychiatric: Alert Skin: Normal Color, Warm/Dry Lymphatic: No Adenopathy Results Lab Laboratory Tests 08/29/22 03:35 08/30/22 03:40 Assessment/Plan Assessment/Plan 1 WALI HOGAN MD Aug 30, 2022 12:13
[2022-08-30 14:20] VITALS: BP 125/59
[2022-08-30] MEDS: NOREPINEPHRINE 8 MG/250 ML 250 ML IV SCH (14:42)
[2022-08-30 18:36] VITALS: BP 115/50
[2022-08-30] MEDS: DexMEDEtomidine 250 ML DRIP 250 ML IV SCH (19:48)
[2022-08-30] MEDS: PRAMIPEXOLE 0.125 MG (MIRAPEX) TABLET PO SCH (20:30)
[2022-08-30] MEDS: DONEPEZIL 10 MG (ARICEPT) TAB PO SCH (20:30)
[2022-08-30] MEDS: MICONAZOLE 2% POWDER (DESENEX AF) 90 GM TOP SCH (20:31)
[2022-08-30 22:11] VITALS: BP 111/51
[2022-08-31] VITALS (10 sets, daily range): BP systolic 78–134; BP diastolic 41–470
[2022-08-31] MEDS: PROPOFOL DRIP (ICU) 100 ML IV SCH ×3 (01:20→14:53)
[2022-08-31] MEDS: NOREPINEPHRINE 8 MG/250 ML 250 ML IV SCH ×2 (03:05→12:23)
[2022-08-31 03:28] LABS: BASOPHILS % (AUTO) 0 % (0-10); EOSINOPHILS # (AUTO) 0.4 10^3/uL (0.0-0.3); EOSINOPHILS % (AUTO) 4 % (0-10); HEMATOCRIT 25 % (35-52); HEMOGLOBIN 7.9 g/dL (11.5-16.0); LYMPHOCYTES # (AUTO) 0.9 10^3/uL (1.0-4.0); LYMPHOCYTES % (AUTO) 8 % (12-44); MEAN CORPUSCULAR HEMOGLOBIN 24 pg (25-34); MEAN CORPUSCULAR HGB CONC 32 g/dL (32-36); MEAN CORPUSCULAR VOLUME 76 fL (80-99); MEAN PLATELET VOLUME 10.2 fL (9.0-12.2); MONOCYTES % (AUTO) 10 % (0-12); NEUTROPHILS # (AUTO) 7.9 10^3/uL (1.8-7.8); NEUTROPHILS % (AUTO) 75 % (42-75); PLATELET COUNT 514 10^3/uL (130-400); WHITE BLOOD COUNT 10.5 10^3/uL (4.3-11.0)
[2022-08-31 03:51] LABS: ALBUMIN 1.8 GM/DL (3.2-4.5); BILIRUBIN,DIRECT 0.4 MG/DL (0.0-0.3); BILIRUBIN,INDIRECT 0.2 MG/DL; BILIRUBIN,TOTAL 0.6 MG/DL (0.1-1.0); CALCIUM 7.9 MG/DL (8.5-10.1); CREATININE SERUM 0.97 MG/DL (0.60-1.30); MAGNESIUM 2.1 MG/DL (1.6-2.4); PHOSPHORUS 3.5 MG/DL (2.3-4.7); POTASSIUM 4.7 MMOL/L (3.6-5.0); TOTAL PROTEIN 4.7 GM/DL (6.4-8.2)
[2022-08-31] MEDS: MAGNESIUM 1 GM/100 ML IVPB 100 ML IV SCH (04:35)
[2022-08-31] MEDS: KCL 20 MEQ TAB (K-DUR) PO SCH (04:35)
[2022-08-31] MEDS: POTASSIUM CL 10MEQ/50ML IVPB 50 ML IV SCH (04:35)
[2022-08-31] MEDS: inSUlin ASPART (NovoLOG) 1 UNIT/0.01 ML (CHARGE PER UNIT) SC SCH ×3 (04:35→18:32)
[2022-08-31] MEDS: RT-ALBUTEROL SULF 2.5 MG/3 ML PRE-MIX VIAL INH SCH (06:27)
[2022-08-31] MEDS: morphine INJ 4 MG/ML 1 ML (VIAL/SYRINGE) IVP PRN ×2 (07:51→14:51)
--- NOTE | 2022-08-31 08:12 | Progress Note - Surgery ---
DARRON HIGGINS 08/31/22 0812: Subjective Date Seen by a Provider: Aug 31, 2022 Time Seen by a Provider: 07:20 Subjective/Events-last exam Patient intubated for mechanical ventilation (FiO2 30%). Per E-ICU notes, an SBT done yesterday lasted 30 minutes (previous SBT on 08/28 lasted 5 minutes). Today, she was awoken for the for the examination and was more notably more responsive when asked questions compared to previous assessments. Additionally, her fiberglass bonding machine tender was much stronger when instructed to squeeze hands. RICCARDO bags both draining serous fluid, approximately 5 mL each over 24 hrs. Per nursing, her wound vac was changed yesterday and draining minimal serous fluid. Urine output over 12 hrs was roughly 2300 mL, likely a result of Lasix given yesterday morning. Review of Systems Gastrointestinal: No: Nausea, Vomiting, Abdominal Pain Objective Exam Vital Signs Date Time Temp Pulse Resp B/P (MAP) Pulse Ox O2 Delivery O2 Flow Rate FiO2 08/31/22 08:01 36.7 08/31/22 07:23 90 08/31/22 06:27 84 26 97 30 08/31/22 06:00 78 16 124/60 (81) 99 Mechanical Ventilator 30.00 08/31/22 05:00 83 21 115/58 (77) 98 Mechanical Ventilator 30.00 08/31/22 04:00 99 Mechanical Ventilator 30 08/31/22 04:00 79 17 116/55 (75) 98 Mechanical Ventilator 30.00 08/31/22 03:00 81 15 114/57 (76) 99 Mechanical Ventilator 30.00 08/31/22 02:15 81 18 99 30 08/31/22 02:00 81 18 104/47 (66) 99 Mechanical Ventilator 30.00 08/31/22 01:20 81 111/51 08/31/22 01:00 80 16 109/54 (72) 99 Mechanical Ventilator 30.00 08/31/22 01:00 80 08/31/22 00:00 36.2 100 Mechanical Ventilator 30.00 08/31/22 00:00 81 17 103/52 (69) 100 Mechanical Ventilator 30.00 08/30/22 23:59 100 Mechanical Ventilator 30 08/30/22 23:48 81 111/51 08/30/22 23:00 81 17 107/58 (74) 100 Mechanical Ventilator 30.00 08/30/22 22:11 81 16 100 30 08/30/22 22:00 80 16 111/50 (70) 100 Mechanical Ventilator 30.00 08/30/22 21:00 90 16 124/50 (74) 100 Mechanical Ventilator 30.00 08/30/22 20:00 93 17 133/56 (81) 100 Mechanical Ventilator 30.00 08/30/22 19:48 94 115/50 08/30/22 19:33 36.5 08/30/22 19:23 100 Mechanical Ventilator 30 08/30/22 19:00 94 16 126/61 (82) 99 Mechanical Ventilator 21.00 08/30/22 19:00 94 08/30/22 18:36 103 18 98 30 08/30/22 18:00 87 16 115/50 (71) 100 Mechanical Ventilator 21.00 08/30/22 17:00 87 15 120/56 (77) 100 Mechanical Ventilator 21.00 08/30/22 16:15 95 Mechanical Ventilator 25 08/30/22 16:03 35.4 08/30/22 16:00 93 14 121/58 (79) 100 Mechanical Ventilator 21.00 08/30/22 15:00 100 27 130/91 (104) 100 Mechanical Ventilator 21.00 08/30/22 14:20 99 33 100 30 08/30/22 14:00 93 16 125/59 (81) 100 Mechanical Ventilator 21.00 08/30/22 13:00 97 15 136/62 (86) 100 Mechanical Ventilator 21.00 08/30/22 12:20 97 08/30/22 12:15 95 Mechanical Ventilator 25 08/30/22 12:00 98 15 109/62 (78) 100 Mechanical Ventilator 21.00 08/30/22 11:00 95 19 101/60 (74) 99 Mechanical Ventilator 21.00 08/30/22 10:30 100 26 98 30 08/30/22 10:00 98 18 115/56 (75) 98 Mechanical Ventilator 21.00 08/30/22 09:00 101 23 128/62 (84) 99 Mechanical Ventilator 21.00 I & O 08/31/22 07:00 Intake Total 1470 ml Output Total 2415 ml Balance -945 ml Capillary Refill : Less Than 3 Seconds General Appearance: No Apparent Distress HEENT: Moist Mucous Membranes; No Scleral Icterus (L), No Scleral Icterus (R) Neck: Non Tender, Supple Respiratory: Normal Breath Sounds, Other (on vent.) Cardiovascular: Regular Rate, Rhythm, No Gallop, No JVD, No Murmur Gastrointestinal: normal bowel sounds, non tender, distended (minimal, improvement from previous examination); No tenderness; other (serous fluid in drains in L and R drains) Extremity: No No Calf Tenderness; No Pedal Edema, Swelling (in hands bilaterally, minimal, improved from previous exam) Neurologic/Psychiatric: Alert, Motor Weakness (improved from previous exam) Skin: Normal Color, Warm/Dry Lymphatic: No Adenopathy Results Lab Laboratory Tests 08/30/22 11:32: Glucometer 105 08/30/22 13:06: Lab Scanned Report Transfusion Reaction Form 08/30/22 17:35: Glucometer 95 08/30/22 23:38: Glucometer 109 08/31/22 03:15: White Blood Count 10.5, Red Blood Count 3.30L, Hemoglobin 7.9L, Hematocrit 25L, Mean Corpuscular Volume 76L, Mean Corpuscular Hemoglobin 24L, Mean Corpuscular Hemoglobin Concent 32, Red Cell Distribution Width 25.3H, Platelet Count 514H, Mean Platelet Volume 10.2, Immature Granulocyte % (Auto) 2, Neutrophils (%) (Auto) 75, Lymphocytes (%) (Auto) 8L, Monocytes (%) (Auto) 10, Eosinophils (%) (Auto) 4, Basophils (%) (Auto) 0, Neutrophils # (Auto) 7.9H, Lymphocytes # (Auto) 0.9L, Monocytes # (Auto) 1.0, Eosinophils # (Auto) 0.4H, Basophils # (Au to) 0.0, Immature Granulocyte # (Auto) 0.2H, Sodium Level 141, Potassium Level 4.7, Chloride Level 110H, Carbon Dioxide Level 24, Anion Gap 7, Blood Urea Nitrogen 43H, Creatinine 0.97, Estimat Glomerular Filtration Rate 60, BUN/Creatinine Ratio 44, Glucose Level 108H, Calcium Level 7.9L, Phosphorus Level 3.5, Magnesium Level 2.1, Total Bilirubin 0.6, Direct Bilirubin 0.4H, Indirect Bilirubin 0.2, Aspartate Amino Transf (AST/SGOT) 36H, Alanine Aminotransferase (ALT/SGPT) 19, Alkaline Phosphatase 57, Total Protein 4.7L, Albumin 1.8L Microbiology 08/23/22 Gram Stain - Final, Complete 08/23/22 Sputum Culture - Final, Complete Pseudomonas aeruginosa Mixed Bacterial Maida 08/22/22 Blood Culture - Final, Complete Streptococcus mitis group See Comments 08/22/22 Urine Culture - Final, Complete NO GROWTH Assessment/Plan Assessment/Plan Assessment/Plan S/P DAY 13 Laparoscopic hand assisted right hemicolectomy S/P DAY 8 Diagnostic lap with abd washout and colon resection and re-anastamosis Septic shock secondary to S. viridins-resolved RA - resolved Anemia - stable Leukocytosis - resolved Continue Meropenem, continue pain medication, continue IVF continue tube feeds and PO medication as tolerated via tube continue to monitor Hgb, transfuse <7 Hope to extubate soon. KOURTNEY ARAGON DO 08/31/22 1406: Subjective Time Seen by a Provider: 11:41 Subjective/Events-last exam Pt seen and examined, she is still intubated but is mostly alert. Nurse states she did get a little hypotensive and E-ICU ordered albumin. Review of Systems unable to obtain Objective Exam General Appearance: No Apparent Distress Respiratory: Normal Breath Sounds, Other (on vent.) Cardiovascular: Regular Rate, Rhythm, No Murmur Gastrointestinal: soft, distended (minimal, improvement from previous examination), other (yellow serous fluid in L drain, the right now looks a little darker) Extremity: No Pedal Edema, Swelling (in hands bilaterally, minimal, improved from previous exam) Neurologic/Psychiatric: Alert Assessment/Plan Assessment/Plan Assessment/Plan Anemia - transfuse 1 Unit of PRBC Hypotension - I doubt albumin has any long lasting affect, hopefully blood will. Will monitor S/P DAY 13 Laparoscopic hand assisted right hemicolectomy S/P DAY 8 Diagnostic lap with abd washout and colon resection and re-anastamosis Septic shock secondary to S. viridins-resolved RA - resolved Leukocytosis - resolved Continue Meropenem, continue pain medication, continue IVF continue tube feeds and PO medication as tolerated via tube continue to monitor Hgb Hope to extubate soon. Supervisory-Addendum Brief Verification & Attestation Participated in pt care: history, MDM, physical Personally performed: exam, history, MDM, supervision of care Care discussed with: Medical Student Procedures: n/a Verification and Attestation of Medical Student E/M Service A medical student performed and documented this service. I then reviewed and verified all information documented by the medical student and made modifications to such information, when appropriate. I personally performed a ph ysical exam, medical decision making and then discussed any differences between the notes and made revisions as necessary to create one note. Kourtney Aragon , 08/31/22 , 14:06 DARRON HIGGINS Aug 31, 2022 08:12 KOURTNEY ARAGON DO Aug 31, 2022 14:06
--- NOTE | 2022-08-31 08:38 | Cardiology Progress Note ---
Subjective Date Seen by Provider: Aug 31, 2022 Time Seen by Provider: 08:37 Subjective/Events-last exam Patient is awake, ventilator dependent Review of Systems General: Other (Unable to provide review of system) Objective-Cardiology Exam Last Set of Vital Signs Vital Signs 08/31/22 08/31/22 08/31/22 08/31/22 06:00 06:27 07:23 08:01 Temp 36.7 Pulse 90 Resp 26 B/P (MAP) 124/60 (81) Pulse Ox 97 O2 Delivery Mechanical Ventilator O2 Flow Rate 30.00 FiO2 30 I&O l Intake and Output 08/31/22 00:00 Intake Total 1470 ml Output Total 2525 ml Balance -1055 ml IV Total 100 ml Tube Feeding 1000 ml Other 370 ml Output Urine Total 2350 ml Drainage Total 175 ml General: Other (intubated) Lungs: Normal Air Movement, Other Heart: Other (tachycardic) Abdomen: Normal Bowel Sounds, Soft Extremities: Other (2+ pitting edema) Skin: No Rashes, No Significant Lesion Neuro: Other (Intubated, following commands) Psych/Mental Status: Other (Intubated) Results Lab Laboratory Tests 08/31/22 03:15 A/P-Cardiology Admission Diagnosis Septic shock Hypotension Adenocardinoma Assessment/Plan Adenocarinoma of ascending colon, s/p partial colon and intraperitoneal mass resection Status post acute abdomen on August 23, 2022 underwent exploratory laparotomy, anastomosis leak was noted Currently having a drain, managed by surgical team Septic shock, hypotensive, tachycardic, respiratory failure Currently blood pressure and heart rate are better Currently off pressors Responded to Lasix, will give additional dose and evaluate tolerance and response Ventilator dependent respiratory failure, Currently off sedation, multiple weaning trials. Managed by medical team Sinus tachycardia secondary to sepsis Continue with supportive care History of hypertension Currently hypotensive, maintained on IV fluid and Levophed Continue to monitor Nonobstructive carotid artery stenosis per carotid duplex done Jul 2022. NORMA DIAMOND MD Aug 31, 2022 08:38
[2022-08-31] MEDS: PANTOPRAZOLE 40 MG (PROTONIX) VIAL IVP SCH (08:42)
[2022-08-31] MEDS: VITAMIN D3 25 MCG (1,000 UNITS) TABLET PO SCH (08:43)
[2022-08-31] MEDS: lisINopril 20 MG (PRINIVIL) TABLET PO SCH (08:43)
[2022-08-31] MEDS: MEROPENEM 500 MG/NS 100 ML IVPB IV SCH ×6 (08:43→21:58)
[2022-08-31] MEDS: OXYBUTYNIN (DITROPAN) 5 MG TAB PO SCH ×2 (08:43→21:56)
[2022-08-31] MEDS: levETIRAcetam 1000 mg/NS 100ml IVPB IV SCH ×2 (08:43→21:56)
[2022-08-31] MEDS: risperiDONE 0.5 MG (RisperDAL) TABLET PO SCH ×2 (08:43→21:56)
[2022-08-31] MEDS: ACETAMINOPHEN 500 MG TAB (TYLENOL) PO SCH ×3 (08:44→22:08)
[2022-08-31] MEDS ORDERED: FUROSEMIDE 40 MG/4 ML INJ (LASIX) IVP NR (09:00)
[2022-08-31] MEDS ORDERED: MEROPENEM 500 MG/NS 100 ML IVPB IV SCH ×2 (09:00)
[2022-08-31] MEDS: MICONAZOLE 2% POWDER (DESENEX AF) 90 GM TOP SCH ×2 (09:42→21:57)
[2022-08-31] MEDS ORDERED: ALBUMIN 25% 25 GM/100 ML 100 ML IV ONE (10:15)
--- NOTE | 2022-08-31 10:40 | Tele-ICU Progress Note ---
Subjective Date Seen by a Provider: Aug 31, 2022 Time Seen by a Provider: 10:39 Subjective/Events-last exam (Tele-ICU Physician , Progress Note ) Service provided via interactive audio and video telecommunications E-CARE system to a patient admitted to ICU bed in [facility]. Patient is seen today due to persistent need of ICU care Available chart/ vitals / labs / Images reviewed Video assessment done using teleICU camera, rest of exam as per RN Discussed with RN Events overnight : Afebrile hemodynamically stable Respiratory - 21 % I/O = pos VENT SETTINGS and ABG reviewed CANDIDATE for SBTreviewed possible contraindications including Cardiovascular Stability /Sedation Score / FI02/PEEP / ABG / CXR/ secretions Sedation, discussed with RN, RASS- -1 OFF [ropofol morphine qid prn Drips: off IV Pressors- OFF Hospital course: (08/18) 76F s/p Lap R hemicolectomy and excision of intraperitoneal mass. (08/22) to ICU with hypotension, tachycardia, and increased pain, r/o Intra- abdominal process - ?Anastomosis leak. CTA = Neg P Embolus. CT A/P = ?Asp PNA. (08/23) OR-Diagnostic Laparoscopy, laparotomy with colon resection and washout INTUBATED 08/24 - AC 16 40 % levo , added vaso 1 u PRBC transfused ( hb 6.6) , CR 3.4 - hydration and lasix x1 ( anuric ) renal consult , CVP 12 , Echo ef 55% 08/25 - AC 22 450 30% +6 , Cr 3 , Hb 6.6 - 2uPRBC , wound vac placed 08/25 , OFF LEVO , vaso 08/26- 30 % + 5 OFF levo , precedex prn 08/31 - followes command , SBT A/P Acute hypoxic respiratory failure secondary to possible underlying sepsis, pneumonia and bibasilar atelectasis- INTUBATED 08/20 - AC 22 450 30% +6 -OFF sedation , CANDIDATE for SBT, planning ( hoping ) for liberation from vent soon Hypoternsion 08/31 - suspected intravascular depletion and opioids effect, doubt new sepsis Shock resolved -pressors OFF 08/26 -ECHO 08/09/22 - EF 55% , RVSP 50 mmHg Sepsis ( off -clindamycin and gentamicin) - sputum + for PSA - changed to merrem 08/24 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 - as per sx , wound vac placed 08/25 RA resolved - follow with hydration , albumin , transfusion Volume overload - RVSP 50 mmHg , CVP12 - Cr improving , negative volume status now - HAS GOOD OU spontaneously , monitor , no need to initiate diuresis now ( but she is VO Anemia (Perioperative anemia hb 9 - no obvious bleeding -s/p transfusion 1 u PRBC 08/24 , and 2 u PRBC 08/25 Hyponatremia - resolved Pulm HTN - ECHO 08/09/22 RVSP 50 mmHg - fluid status as per renal now - follow Nutrition - as per Sx , no parental feeding post op 08/23--> ? TPN - as per sx LEFT leg tenderness 08/30 - Lines : L IJ 08/22 (Central Line Necessity Reviewed) Phillips: + OG: Nutrition: glycerna - up to goal Analgesia: Anxiety/ delirium VTE Prophylaxis: heparin sq if no active bleeding Stress Ulcer Prophylaxis: ppi Plans in collaboration with bedside consultants and IM MDs. Discussed with RN to reach out if any questions or concerns A total of 32 minutes of critical care time was devoted to this patient today, required to treat and/or prevent further deterioration of critical care condition ( as above ) . Sepsis Event Evaluation Height, Weight, BMI Height: 5'4.00" Weight: 193lbs. 3.0oz. [id number]; 38.55 BMI Method: Exam Exam Patient acknowledged, consented, and participated in this virtual visit which was conducted using real time audio/video Vital Signs Date Time Temp Pulse Resp B/P (MAP) Pulse Ox O2 Delivery O2 Flow Rate FiO2 08/31/22 10:17 90 19 97 30 08/31/22 09:00 85 19 84/43 (57) 99 Mechanical Ventilator 30.00 08/31/22 08:01 36.7 08/31/22 08:00 97 Mechanical Ventilator 30 08/31/22 08:00 89 27 103/61 (75) 98 Mechanical Ventilator 30.00 08/31/22 07:23 90 08/31/22 07:00 85 18 108/52 (70) 96 Mechanical Ventilator 30.00 08/31/22 06:27 84 26 97 30 08/31/22 06:00 78 16 124/60 (81) 99 Mechanical Ventilator 30.00 08/31/22 05:00 83 21 115/58 (77) 98 Mechanical Ventilator 30.00 08/31/22 04:00 99 Mechanical Ventilator 30 08/31/22 04:00 79 17 116/55 (75) 98 Mechanical Ventilator 30.00 08/31/22 03:00 81 15 114/57 (76) 99 Mechanical Ventilator 30.00 08/31/22 02:15 81 18 99 30 08/31/22 02:00 81 18 104/47 (66) 99 Mechanical Ventilator 30.00 08/31/22 01:20 81 111/51 08/31/22 01:00 80 16 109/54 (72) 99 Mechanical Ventilator 30.00 08/31/22 01:00 80 08/31/22 00:00 36.2 100 Mechanical Ventilator 30.00 08/31/22 00:00 81 17 103/52 (69) 100 Mechanical Ventilator 30.00 08/30/22 23:59 100 Mechanical Ventilator 30 08/30/22 23:48 81 111/51 08/30/22 23:00 81 17 107/58 (74) 100 Mechanical Ventilator 30.00 08/30/22 22:11 81 16 100 30 08/30/22 22:00 80 16 111/50 (70) 100 Mechanical Ventilator 30.00 08/30/22 21:00 90 16 124/50 (74) 100 Mechanical Ventilator 30.00 08/30/22 20:00 93 17 133/56 (81) 100 Mechanical Ventilator 30.00 08/30/22 19:48 94 115/50 08/30/22 19:33 36.5 08/30/22 19:23 100 Mechanical Ventilator 30 08/30/22 19:00 94 16 126/61 (82) 99 Mechanical Ventilator 21.00 08/30/22 19:00 94 08/30/22 18:36 103 18 98 30 08/30/22 18:00 87 16 115/50 (71) 100 Mechanical Ventilator 21.00 08/30/22 17:00 87 15 120/56 (77) 100 Mechanical Ventilator 21.00 08/30/22 16:15 95 Mechanical Ventilator 25 08/30/22 16:03 35.4 08/30/22 16:00 93 14 121/58 (79) 100 Mechanical Ventilator 21.00 08/30/22 15:00 100 27 130/91 (104) 100 Mechanical Ventilator 21.00 08/30/22 14:20 99 33 100 30 08/30/22 14:00 93 16 125/59 (81) 100 Mechanical Ventilator 21.00 08/30/22 13:00 97 15 136/62 (86) 100 Mechanical Ventilator 21.00 08/30/22 12:20 97 08/30/22 12:15 95 Mechanical Ventilator 25 08/30/22 12:00 98 15 109/62 (78) 100 Mechanical Ventilator 21.00 08/30/22 11:00 95 19 101/60 (74) 99 Mechanical Ventilator 21.00 I & O 08/31/22 07:00 Intake Total 1470 ml Output Total 2415 ml Balance -945 ml Height & Weight Height: 5'4.00" Weight: 193lbs. 3.0oz. [id number]; 38.55 BMI Method: General Appearance: No Apparent Distress HEENT: Moist Mucous Membranes; No Scleral Icterus (L), No Scleral Icterus (R) Neck: Non Tender, Supple Respiratory: Normal Breath Sounds, Other (on vent.) Cardiovascular: Regular Rate, Rhythm, No Gallop, No JVD, No Murmur Capillary Refill: Less Than 3 Seconds Gastrointestinal: normal bowel sounds, non tender, distended (minimal, improvement from previous examination); No tenderness; other (serous fluid in drains in L and R drains) Extremity: No No Calf Tenderness; No Pedal Edema, Swelling (in hands bilaterally, minimal, improved from previous exam) Neurologic/Psychiatric: Alert, Motor Weakness (improved from previous exam) Skin: Normal Color, Warm/Dry Lymphatic: No Adenopathy Results Lab Laboratory Tests 08/30/22 03:40 08/31/22 03:15 Assessment/Plan Assessment/Plan 1 WALI HOGAN MD Aug 31, 2022 10:40
[2022-08-31] MEDS ORDERED: NS IV 500 ML 500 ML IV SCH (11:45)
--- NOTE | 2022-08-31 12:09 | Progress Note - Hospitalist ---
KAYA SANCHES 08/31/22 1209: Subjective HPI/CC On Admission Date Seen by Provider: Aug 31, 2022 Time Seen by Provider: 09:00 Roseann has been off of pressors and propofol since Tuesday. On precedex now. She is satting well into 90s with vent at FiO2 30%. She nods her head when asked if she can hear me, squeezes hand on command. Lasix given yesterday with 2L out. SBT trial yesterday for 30 minutes before needing ACVC back on. Review of Systems Cardiovascular: No: Palpitations Musculoskeletal: other (denies pain.) Objective Exam Vital Signs Vital Signs Date Time Temp Pulse Resp B/P (MAP) Pulse Ox O2 Delivery O2 Flow Rate FiO2 08/31/22 11:00 99 13 100/43 (62) 98 Mechanical Ventilator 30.00 08/31/22 10:17 30 08/31/22 08:01 36.7 Capillary Refill : Less Than 3 Seconds General Appearance: No Apparent Distress HEENT: PERRL/EOMI, Pharynx Normal, Moist Mucous Membranes Neck: Non Tender, Supple; No JVD Respiratory: Lungs Clear, Normal Breath Sounds, Other (equal chest expansion.) Cardiovascular: Regular Rate, Rhythm, No Edema, No Gallop, No JVD, No Murmur, Normal Peripheral Pulses Gastrointestinal: Normal Bowel Sounds, Non Tender, Soft; No Distended; Other (wound vac and drain in place) Extremity: Normal Capillary Refill, Normal Inspection, No Pedal Edema Neurologic/Psychiatric: Alert, Motor Weakness, Other (A&ox2. follows commands. Lifts hand to gesture.) Skin: Normal Color, Warm/Dry Results/Procedures Lab Laboratory Tests 08/31/22 03:15 Patient resulted labs reviewed. 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 -08/23 anastomotic leak noted -drain placed by surgery, monitoring -wound vac and drain in place Septic shock AHRF Pneumonia -NorE, vaso paused, MAPs in 70s-90s over 24 hours -propofol paused since yesterday -cxr reviewed -blood cx grew nml skin edward x1 -sputum culture obtained from ET tube grew p aeru, on meropenem -awaiting susceptibility -SBT trials per icu team RA Fluid Overload -Rise to >3 creatinine, trending down, 1.82 today -30kg weight gain since 08/18 -very edematous on exam, improved today -having adequate urine output -nephro on board, happy with urine output -significantly improved edema on exam -lasix given yesterday -total output yesterday 2L -84 kg on admit, 116 peak, now 101kg Seizure d/o -on IV keppra, continue Hx of HTN -monitor Microcytic Anemia -received 3x blood transfusions so far. -Hgb trending up -[facility] noted hx of iron deficiency anemia Dispo: Weaning off vent with SBT per icu team. Only requiring 30% o2 with good o2 sats. CLARISSA FREDERICK DO 09/01/22 0442: Supervisory-Addendum Brief Verification & Attestation Participated in pt care: history, MDM, physical Personally performed: exam, history, MDM, supervision of care Care discussed with: Medical Student Procedures: n/a Results interpretation: Verified all documentation Verification and Attestation of Medical Student E/M Service A medical student performed and documented this service in my presence. I reviewed and verified all information documented by the medical student and made modifications to such information, when appropriate. I personally performed the physical exam and medical decision making. Clarissa Frederick Sep 01, 2022,04:42 KAYA SANCHES Aug 31, 2022 12:09 CLARISSA FREDERICK DO Sep 01, 2022 04:42
--- NOTE | 2022-08-31 13:50 | Progress Note ---
Progress Note Assessment/Plan Date Seen by Provider: Aug 25, 2022 Time Seen by Provider: 09:28 Events since last exam Pt remains intubated. no acute events overnight. Assessment/Plan RA -improving due to infection, hypotension continue supportive care renally dose meds avoid hypotension and nephrotoxins making urine stop ivf to avoid overloading acute resp failure on vent cc managing adenocarcinoma s/p resection complicated by anastomotic leak surgery following supportive care anemia monitor closely Thank you for allowing me to participate in the care of this very pleasant patient. Today's visit was conducted via secure video chat. Vitals Last set of Vitals Signs Vital Signs Date Time Temp Pulse Resp B/P (MAP) Pulse Ox O2 Delivery O2 Flow Rate FiO2 08/31/22 13:01 87 08/31/22 13:00 16 95/43 (60) 98 Mechanical Ventilator 30.00 08/31/22 12:18 36.9 08/31/22 10:17 30 I&O I&O Intake and Output 08/31/22 00:00 Intake Total 1470 ml Output Total 2525 ml Balance -1055 ml IV Total 100 ml Tube Feeding 1000 ml Other 370 ml Output Urine Total 2350 ml Drainage Total 175 ml Labs Laboratory Tests 08/30/22 17:35: Glucometer 95 08/30/22 23:38: Glucometer 109 08/31/22 03:15: White Blood Count 10.5, Red Blood Count 3.30L, Hemoglobin 7.9L, Hematocrit 25L, Mean Corpuscular Volume 76L, Mean Corpuscular Hemoglobin 24L, Mean Corpuscular Hemoglobin Concent 32, Red Cell Distribution Width 25.3H, Platelet Count 514H, Mean Platelet Volume 10.2, Immature Granulocyte % (Auto) 2, Neutrophils (%) (Auto) 75, Lymphocytes (%) (Auto) 8L, Monocytes (%) (Auto) 10, Eosinophils (%) (Auto) 4, Basophils (%) (Auto) 0, Neutrophils # (Auto) 7.9H, Lymphocytes # (Auto) 0.9L, Monocytes # (Auto) 1.0, Eosinophils # (Auto) 0.4H, Basophils # (Auto) 0.0, Immature Granulocyte # (Auto) 0.2H, Sodium Level 141, Potassium Level 4.7, Chloride Level 110H, Carbon Dioxide Level 24, Anion Gap 7, Blood Urea Nitrogen 43H, Creatinine 0.97, Estimat Glomerular Filtration Rate 60, BUN/Creatinine Ratio 44, Glucose Level 108H, Calcium Level 7.9L, Phosphorus Level 3.5, Magnesium Level 2.1, Total Bilirubin 0.6, Direct Bilirubin 0.4H, Indirect Bilirubin 0.2, Aspartate Amino Transf (AST/SGOT) 36H, Alanine Aminotransferase (ALT/SGPT) 19, Alkaline Phosphatase 57, Total Protein 4.7L, Albumin 1.8L 08/31/22 12:10: Glucometer 115H Microbiology 08/23/22 Gram Stain - Final, Complete 08/23/22 Sputum Culture - Final, Complete Pseudomonas aeruginosa Mixed Bacterial Maida 08/22/22 Blood Culture - Final, Complete Streptococcus mitis group See Comments 08/22/22 Urine Culture - Final, Complete NO GROWTH LINDA DORSEY MD Aug 31, 2022 13:50
--- NOTE | 2022-08-31 13:51 | Progress Note ---
Progress Note Assessment/Plan Date Seen by Provider: Aug 27, 2022 Time Seen by Provider: 11:00 Events since last exam Pt continues to make urine. cr improving. Assessment/Plan RA -improving due to infection, hypotension continue supportive care renally dose meds avoid hypotension and nephrotoxins making urine stop ivf to avoid overloading acute resp failure on vent cc managing adenocarcinoma s/p resection complicated by anastomotic leak surgery following supportive care anemia monitor closely Thank you for allowing me to participate in the care of this very pleasant patient. Today's visit was conducted via secure video chat. Vitals Last set of Vitals Signs Vital Signs Date Time Temp Pulse Resp B/P (MAP) Pulse Ox O2 Delivery O2 Flow Rate FiO2 08/31/22 13:01 87 08/31/22 13:00 16 95/43 (60) 98 Mechanical Ventilator 30.00 08/31/22 12:18 36.9 08/31/22 10:17 30 I&O I&O Intake and Output 08/31/22 00:00 Intake Total 1470 ml Output Total 2525 ml Balance -1055 ml IV Total 100 ml Tube Feeding 1000 ml Other 370 ml Output Urine Total 2350 ml Drainage Total 175 ml Labs Laboratory Tests 08/30/22 17:35: Glucometer 95 08/30/22 23:38: Glucometer 109 08/31/22 03:15: White Blood Count 10.5, Red Blood Count 3.30L, Hemoglobin 7.9L, Hematocrit 25L, Mean Corpuscular Volume 76L, Mean Corpuscular Hemoglobin 24L, Mean Corpuscular Hemoglobin Concent 32, Red Cell Distribution Width 25.3H, Platelet Count 514H, Mean Platelet Volume 10.2, Immature Granulocyte % (Auto) 2, Neutrophils (%) (Auto) 75, Lymphocytes (%) (Auto) 8L, Monocytes (%) (Auto) 10, Eosinophils (%) (Auto) 4, Basophils (%) (Auto) 0, Neutrophils # (Auto) 7.9H, Lymphocytes # (Auto ) 0.9L, Monocytes # (Auto) 1.0, Eosinophils # (Auto) 0.4H, Basophils # (Auto) 0.0, Immature Granulocyte # (Auto) 0.2H, Sodium Level 141, Potassium Level 4.7, Chloride Level 110H, Carbon Dioxide Level 24, Anion Gap 7, Blood Urea Nitrogen 43H, Creatinine 0.97, Estimat Glomerular Filtration Rate 60, BUN/Creatinine Ratio 44, Glucose Level 108H, Calcium Level 7.9L, Phosphorus Level 3.5, Magnesium Level 2.1, Total Bilirubin 0.6, Direct Bilirubin 0.4H, Indirect Bilirubin 0.2, Aspartate Amino Transf (AST/SGOT) 36H, Alanine Aminotransferase (ALT/SGPT) 19, Alkaline Phosphatase 57, Total Protein 4.7L, Albumin 1.8L 08/31/22 12:10: Glucometer 115H Microbiology 08/23/22 Gram Stain - Final, Complete 08/23/22 Sputum Culture - Final, Complete Pseudomonas aeruginosa Mixed Bacterial Maida 08/22/22 Blood Culture - Final, Complete Streptococcus mitis group See Comments 08/22/22 Urine Culture - Final, Complete NO GROWTH LINDA DORSEY MD Aug 31, 2022 13:51
[2022-08-31] MEDS: RT-ALBUTEROL/IPRATROPIUM 3 ML (DUONEB) VIAL INH SCH ×3 (14:15→21:34)
[2022-08-31] MEDS: DONEPEZIL 10 MG (ARICEPT) TAB PO SCH (21:56)
[2022-08-31] MEDS: PRAMIPEXOLE 0.125 MG (MIRAPEX) TABLET PO SCH (21:56)
[2022-08-31] MEDS: DexMEDEtomidine 250 ML DRIP 250 ML IV SCH (22:04)
[2022-09-01] VITALS (8 sets, daily range): BP systolic 106–171; BP diastolic 49–80
[2022-09-01] MEDS: PROPOFOL DRIP (ICU) 100 ML IV SCH ×3 (00:15→16:27)
[2022-09-01] MEDS: RT-ALBUTEROL/IPRATROPIUM 3 ML (DUONEB) VIAL INH SCH ×6 (02:38→22:16)
[2022-09-01] MEDS: MEROPENEM 500 MG/NS 100 ML IVPB IV SCH ×8 (02:56→20:39)
[2022-09-01 05:35] LABS: BASOPHILS % (AUTO) 0 % (0-10); EOSINOPHILS # (AUTO) 0.4 10^3/uL (0.0-0.3); EOSINOPHILS % (AUTO) 5 % (0-10); HEMATOCRIT 29 % (35-52); HEMOGLOBIN 9.4 g/dL (11.5-16.0); LYMPHOCYTES # (AUTO) 0.8 10^3/uL (1.0-4.0); LYMPHOCYTES % (AUTO) 8 % (12-44); MEAN CORPUSCULAR HEMOGLOBIN 25 pg (25-34); MEAN CORPUSCULAR HGB CONC 32 g/dL (32-36); MEAN CORPUSCULAR VOLUME 77 fL (80-99); MEAN PLATELET VOLUME 9.8 fL (9.0-12.2); MONOCYTES # (AUTO) 1.1 10^3/uL (0.0-1.0); MONOCYTES % (AUTO) 11 % (0-12); NEUTROPHILS # (AUTO) 7.3 10^3/uL (1.8-7.8); NEUTROPHILS % (AUTO) 74 % (42-75); PLATELET COUNT 640 10^3/uL (130-400); WHITE BLOOD COUNT 9.8 10^3/uL (4.3-11.0)
[2022-09-01 05:52] LABS: ABG BASE EXCESS 0.9 MMOL/L (-2.5-2.5); ABG OXYGEN SATURATION 97 % (94-100); ABG PCO2 39 MMHG (35-45); ABG PH 7.43 (7.37-7.43); ABG PO2 84 MMHG (79-93); ABG TCO2 25.8 MMOL/L (21.0-31.0); ALLENS TEST YES-POS; INSPIRED O2 30%; PATIENT TEMP 37.6; VENTILATOR YES
[2022-09-01] MEDS: POTASSIUM CL 10MEQ/50ML IVPB 50 ML IV SCH (06:00)
[2022-09-01] MEDS: MAGNESIUM 1 GM/100 ML IVPB 100 ML IV SCH (06:00)
[2022-09-01] MEDS: KCL 20 MEQ TAB (K-DUR) PO SCH (06:00)
[2022-09-01] MEDS: inSUlin ASPART (NovoLOG) 1 UNIT/0.01 ML (CHARGE PER UNIT) SC SCH ×4 (06:00→18:53)
[2022-09-01 06:02] LABS: ALBUMIN 2.2 GM/DL (3.2-4.5); BILIRUBIN,DIRECT 0.5 MG/DL (0.0-0.3); BILIRUBIN,INDIRECT 0.4 MG/DL; BILIRUBIN,TOTAL 0.9 MG/DL (0.1-1.0); CALCIUM 8.3 MG/DL (8.5-10.1); CREATININE SERUM 0.83 MG/DL (0.60-1.30); MAGNESIUM 2.2 MG/DL (1.6-2.4); PHOSPHORUS 3.5 MG/DL (2.3-4.7); POTASSIUM 4.9 MMOL/L (3.6-5.0); TOTAL PROTEIN 5.1 GM/DL (6.4-8.2)
[2022-09-01] MEDS: DexMEDEtomidine 250 ML DRIP 250 ML IV SCH ×2 (06:32→23:41)
[2022-09-01] MEDS: ACETAMINOPHEN 500 MG TAB (TYLENOL) PO SCH ×3 (06:33→22:31)
--- NOTE | 2022-09-01 07:28 | Progress Note - Surgery ---
DARRON HIGGINS 09/01/22 0728: Subjective Date Seen by a Provider: Sep 01, 2022 Time Seen by a Provider: 07:10 Subjective/Events-last exam Patient intubated for ventilation (FiO2 30%). Off propofal since 08/25. She was awoken for examination and was less alert compared to yesterdays assessment; she answered yes/no to questions and squeezed hands but with less strength than yesterday. Right RICCARDO bag draining minimal fluid that is darker than that observed previously and could be due to a blood clot in the RICCARDO tube. She is normotensive this morning after receiving NE, 1 unit of PRBC and albumin yesterday. Review of Systems Gastrointestinal: No: Nausea, Vomiting, Abdominal Pain Objective Exam Vital Signs Date Time Temp Pulse Resp B/P (MAP) Pulse Ox O2 Delivery O2 Flow Rate FiO2 09/01/22 06:33 37.6 09/01/22 06:32 80 116/53 09/01/22 06:00 76 16 116/62 (86) 100 Mechanical Ventilator 30.00 09/01/22 05:00 79 16 117/61 (81) 100 Mechanical Ventilator 30.00 09/01/22 04:00 100 Mechanical Ventilator 30 09/01/22 04:00 80 16 113/55 (79) 100 Mechanical Ventilator 30.00 09/01/22 03:00 80 16 117/57 (82) 100 Mechanical Ventilator 30.00 09/01/22 02:39 79 16 100 30 09/01/22 02:00 82 16 111/56 (78) 100 Mechanical Ventilator 30.00 09/01/22 01:00 85 09/01/22 01:00 85 16 104/53 (72) 100 Mechanical Ventilator 30.00 09/01/22 00:00 82 16 112/57 (78) 98 Mechanical Ventilator 30.00 08/31/22 23:59 98 Mechanical Ventilator 30 08/31/22 23:00 89 16 96/48 (66) 98 Mechanical Ventilator 30.00 08/31/22 22:38 36.9 08/31/22 22:08 37.1 08/31/22 22:04 86 131/61 08/31/22 22:00 87 16 131/61 (92) 100 Mechanical Ventilator 30.00 08/31/22 21:34 86 18 100 30 08/31/22 21:00 87 16 117/54 (80) 100 Mechanical Ventilator 30.00 08/31/22 20:00 37.1 08/31/22 20:00 98 Mechanical Ventilator 30 08/31/22 20:00 97 16 119/53 (75) 100 Mechanical Ventilator 30.00 08/31/22 19:00 101 16 125/57 (75) 100 Mechanical Ventilator 30.00 08/31/22 19:00 101 08/31/22 18:51 98 26 100 30 08/31/22 18:00 101 17 126/54 (78) 100 Mechanical Ventilator 30.00 08/31/22 17:46 36.7 99 16 121/55 100 Mechanical Ventilator 30 08/31/22 17:00 106 23 132/76 (94) 98 Mechanical Ventilator 30.00 08/31/22 16:00 112 26 111/79 (90) 97 Mechanical Ventilator 30.00 08/31/22 16:00 98 Mechanical Ventilator 30 08/31/22 16:00 37.0 08/31/22 15:00 111 18 91/32 (51) 96 Mechanical Ventilator 30.00 08/31/22 14:27 37.4 107 27 105/60 99 Mechanical Ventilator 30 08/31/22 14:17 101 22 100 30 08/31/22 14:10 104 37 99 30 08/31/22 14:07 37.7 93 23 112/42 100 Mechanical Ventilator 30 08/31/22 14:00 93 23 120/51 (74) 100 Mechanical Ventilator 30.00 08/31/22 13:01 87 08/31/22 13:00 90 16 95/43 (60) 98 Mechanical Ventilator 30.00 08/31/22 12:23 90/38 08/31/22 12:18 36.9 08/31/22 12:00 93 14 118/53 (74) 98 Mechanical Ventilator 30.00 08/31/22 12:00 97 Mechanical Ventilator 30 08/31/22 11:00 99 13 100/43 (62) 98 Mechanical Ventilator 30.00 08/31/22 10:17 90 19 97 30 08/31/22 10:00 90 20 89/47 (61) 96 Mechanical Ventilator 30.00 08/31/22 09:00 85 19 84/43 (57) 99 Mechanical Ventilator 30.00 08/31/22 08:01 36.7 08/31/22 08:00 97 Mechanical Ventilator 30 3/7/23 08:00 89 27 103/61 (75) 98 Mechanical Ventilator 30.00 I & O 09/01/22 07:00 Intake Total 2910 ml Output Total 1860 ml Balance 1050 ml Capillary Refill : Less Than 3 Seconds General Appearance: No Apparent Distress HEENT: Pharynx Normal, Moist Mucous Membranes Neck: Non Tender, Supple; No JVD Respiratory: Normal Breath Sounds, Other (on vent.) Cardiovascular: Regular Rate, Rhythm, No Murmur Gastrointestinal: normal bowel sounds, non tender, soft, other (right RICCARDO bag looks slightly darker) Extremity: No Pedal Edema Neurologic/Psychiatric: Alert, Motor Weakness (weaker compared to previous assessment ) Skin: Normal Color, Warm/Dry Lymphatic: No Adenopathy Results Lab Laboratory Tests 08/31/22 12:10: Glucometer 115H 08/31/22 17:51: Glucometer 103 09/01/22 00:35: Glucometer 108 09/01/22 05:20: White Blood Count 9.8, Red Blood Count 3.82, Hemoglobin 9.4L, Hematocrit 29L, Mean Corpuscular Volume 77L, Mean Corpuscular Hemoglobin 25, Mean Corpuscular Hemoglobin Concent 32, Red Cell Distribution Width 25.5H, Platelet Count 640H, Mean Platelet Volume 9.8, Immature Granulocyte % (Auto) 2, Neutrophils (%) (Auto) 74, Lymphocytes (%) (Auto) 8L, Monocytes (%) (Auto) 11, Eosinophils (%) (Auto) 5, Basophils (%) (Auto) 0, Neutrophils # (Auto) 7.3, Lymphocytes # (Auto) 0.8L, Monocytes # (Auto) 1.1H, Eosinophils # (Auto) 0.4H, Basophils # (Auto) 0.0, Immature Granulocyte # (Auto) 0.2H, Sodium Level 142, Potassium Level 4.9, Chloride Level 112H, Carbon Dioxide Level 23, Anion Gap 7, Blood Urea Nitrogen 39H, Creatinine 0.83, Estimat Glomerular Filtration Rate 73, BUN/Creatinine Ra ingrid 47, Glucose Level 111H, Calcium Level 8.3L, Phosphorus Level 3.5, Magnesium Level 2.2, Total Bilirubin 0.9, Direct Bilirubin 0.5H, Indirect Bilirubin 0.4, Aspartate Amino Transf (AST/SGOT) 32, Alanine Aminotransferase (ALT/SGPT) 19, Alkaline Phosphatase 49, Total Protein 5.1L, Albumin 2.2L 09/01/22 05:35: Blood Gas Puncture Site L BRACH, Blood Gas Patient Temperature 37.6, Arterial Blood pH 7.43, Arterial Blood Partial Pressure CO2 39, Arterial Blood Partial Pressure O2 84, Arterial Blood HCO3 25, Arterial Blood Total CO2 25.8, Arterial Blood Oxygen Saturation 97, Arterial Blood Base Excess 0.9, Aiden Test YES-POS, Blood Gas Ventilator Setting YES, Blood Gas Inspired Oxygen 30% Microbiology 08/23/22 Gram Stain - Final, Complete 08/23/22 Sputum Culture - Final, Complete Pseudomonas aeruginosa Mixed Bacterial Maida 08/22/22 Blood Culture - Final, Complete Streptococcus mitis group See Comments 08/22/22 Urine Culture - Final, Complete NO GROWTH Assessment/Plan Assessment/Plan Assessment/Plan Anemia - stable s/p 4th unit of PRBC on 08/31 Hypotension - normotensive today s/p 1 unit of PRBC, NE, and albumin on 08/31 S/P Laparoscopic hand assisted right hemicolectomy (08/18) S/P Diagnostic lap with abd washout and colon resection and re-anastamosis (08/23) Septic shock secondary to S. viridins-resolved RA - resolved Leukocytosis - resolved Continue Meropenem, continue pain medication, continue IVF continue tube feeds and PO medication as tolerated via tube continue to monitor Hgb Hope to extubate soon. KOURTNEY ARAGON DO 09/02/22 1223: Subjective Time Seen by a Provider: 13:11 Subjective/Events-last exam This is a late entry note, pt seen yesterday...note done today. Pt seen and examined, still intubate and nurse states SBT pt only lasted 7 minutes. Objective Exam General Appearance: No Apparent Distress, Other (intubated) Respiratory: Normal Breath Sounds, Other (on vent.) Cardiovascular: Regular Rate, Rhythm, No Murmur Gastrointestinal: normal bowel sounds, soft, other (right RICCARDO bag looks slightly darker, VAC in place) Extremity: No Pedal Edema Neurologic/Psychiatric: Alert, Motor Weakness (weaker compared to previous assessment ) Assessment/Plan Assessment/Plan Assessment/Plan Anemia - stable s/p 4th unit of PRBC on 08/31 Hypotension - normotensive today s/p 1 unit of PRBC, NE, and albumin on 08/31 S/P Laparoscopic hand assisted right hemicolectomy (08/18) S/P Diagnostic lap with abd washout and colon resection and re-anastamosis (08/23) Septic shock secondary to S. viridins-resolved RA - resolved Leukocytosis - resolved Continue Meropenem, continue pain medication, continue IVF continue tube feeds and PO medication as tolerated via tube continue to monitor Hgb, will D/C left RICCARDO drain. Supervisory-Addendum Brief Verification & Attestation Participated in pt care: history, MDM, physical Personally performed: exam, history, MDM, supervision of care Care discussed with: Medical Student Procedures: n/a Verification and Attestation of Medical Student E/M Service A medical student performed and documented this service. I then reviewed and verified all information documented by the medical student and made modifications to such information, when appropriate. I personally performed a physical exam, medical decision making and then discussed any differences andreww een the notes and made revisions as necessary to create one note. Kourtney Aragon , 09/02/22 , 12:23 DARRON HIGGINS Sep 01, 2022 07:28 KOURTNEY ARAGON DO Sep 02, 2022 12:23
[2022-09-01] MEDS: VITAMIN D3 25 MCG (1,000 UNITS) TABLET PO SCH (08:29)
[2022-09-01] MEDS: PANTOPRAZOLE 40 MG (PROTONIX) VIAL IVP SCH (08:29)
[2022-09-01] MEDS: risperiDONE 0.5 MG (RisperDAL) TABLET PO SCH ×2 (08:29→20:39)
[2022-09-01] MEDS: OXYBUTYNIN (DITROPAN) 5 MG TAB PO SCH ×2 (08:29→20:39)
[2022-09-01] MEDS: lisINopril 20 MG (PRINIVIL) TABLET PO SCH (08:32)
[2022-09-01] MEDS: levETIRAcetam 1000 mg/NS 100ml IVPB IV SCH ×2 (08:32→20:39)
[2022-09-01] MEDS: MICONAZOLE 2% POWDER (DESENEX AF) 90 GM TOP SCH ×2 (08:39→20:39)
[2022-09-01] MEDS: NOREPINEPHRINE 8 MG/250 ML 250 ML IV SCH (09:30)
--- NOTE | 2022-09-01 10:30 | Cardiology Progress Note ---
Subjective Date Seen by Provider: Sep 01, 2022 Time Seen by Provider: 09:00 Subjective/Events-last exam Patient intubated but alert, eyes open and following commands Objective-Cardiology Exam Last Set of Vital Signs Vital Signs 09/01/22 09/01/22 09/01/22 09/01/22 11:00 12:00 13:09 15:14 Temp 37.1 Pulse 128 Resp 20 B/P (MAP) 115/55 (75) Pulse Ox 96 O2 Delivery Mechanical Ventilator O2 Flow Rate 21.00 FiO2 30 I&O Intake and Output 09/01/22 00:00 Intake Total 2460 ml Output Total 1570 ml Balance 890 ml IV Total 750 ml Tube Feeding 1200 ml Enteral Flush 100 ml Other 410 ml Output Urine Total 1100 ml Stool Total 425 ml Drainage Total 45 ml # Bowel Movements 3 General: Alert, Cooperative, Other (intubated) Lungs: Normal Air Movement, Other Heart: Other (tachycardic) Abdomen: Normal Bowel Sounds, Soft Extremities: Other (2+ pitting edema) Skin: No Rashes, No Significant Lesion Neuro: Other (Intubated, following commands) Psych/Mental Status: Other (Intubated) Results Lab Laboratory Tests 09/01/22 05:20 A/P-Cardiology Admission Diagnosis Septic shock Hypotension Adenocardinoma Assessment/Plan Adenocarinoma of ascending colon, s/p partial colon and intraperitoneal mass resection Status post acute abdomen on August 23, 2022 underwent exploratory laparotomy, anastomosis leak was noted Currently having a drain, managed by surgical team Septic shock, hypotensive, tachycardic, respiratory failure Currently blood pressure and heart rate are better Currently off pressors Responded to Lasix Ventilator dependent respiratory failure, Currently off sedation, multiple weaning trials. Managed by medical team Sinus tachycardia secondary to sepsis Continue with supportive care History of hypertension, continue to monitor Nonobstructive carotid artery stenosis per carotid duplex done Jul 2022. Supervisory-Addendum Brief Supervisory Addendum Participated in pt care: history, MDM, physical Personally performed: exam, history, MDM Care discussed with: PIERO Results interpretation: Verified all documentation Notes: Patient was seen and evaluated with Nick, examination performed, management plan was discussed, agree with the current scribed note, I made few changes to the note using Italic font Patient was seen at bedside, laying down comfortably She was awake still on the ventilator. Working on weaning her off. Continue to monitor heart rate and blood pressure NICK MONAHAN Sep 01, 2022 10:30 NORMA DIAMOND MD Sep 01, 2022 16:13
--- NOTE | 2022-09-01 10:40 | Tele-ICU Progress Note ---
Subjective Date Seen by a Provider: Sep 01, 2022 Time Seen by a Provider: 10:40 Subjective/Events-last exam (Tele-ICU Physician , Progress Note ) Service provided via interactive audio and video telecommunications E-CARE system to a patient admitted to ICU bed in [facility]. Patient is seen today due to persistent need of ICU care Available chart/ vitals / labs / Images reviewed Video assessment done using teleICU camera, rest of exam as per RN Discussed with RN Events overnight : Afebrile hemodynamically stable Respiratory - 21 % I/O = pos VENT SETTINGS and ABG reviewed CANDIDATE for SBTreviewed possible contraindications including Cardiovascular Stability /Sedation Score / FI02/PEEP / ABG / CXR/ secretions Sedation, discussed with RN, RASS- -1 OFF [ropofol morphine qid prn Drips: off IV Pressors- OFF Hospital course: (08/18) 76F s/p Lap R hemicolectomy and excision of intraperitoneal mass. (08/22) to ICU with hypotension, tachycardia, and increased pain, r/o Intra- abdominal process - ?Anastomosis leak. CTA = Neg P Embolus. CT A/P = ?Asp PNA. (08/23) OR-Diagnostic Laparoscopy, laparotomy with colon resection and washout INTUBATED 08/24 - AC 16 40 % levo , added vaso 1 u PRBC transfused ( hb 6.6) , CR 3.4 - hydration and lasix x1 ( anuric ) renal consult , CVP 12 , Echo ef 55% 08/25 - AC 22 450 30% +6 , Cr 3 , Hb 6.6 - 2uPRBC , wound vac placed 08/25 , OFF LEVO , vaso 08/26- 30 % + 5 OFF levo , precedex prn 08/31 - followes command , SBT failed with rr 30+ and TV 200, 1 u PRBC , levo shortly 09/01 - 21% +5 , OFF levo A/P Acute hypoxic respiratory failure secondary to possible underlying sepsis, pneumonia and bibasilar atelectasis- INTUBATED 08/20 - AC 22 450 30% +6 -OFF sedation , SBT failed 08/31 with rr 30+ and TV 200, CANDIDATE for SBT, planning ( hoping ) for liberation from vent soon IF KEP FAILING SBT WITH WEAKNESS OF RESP MUSCLES , MIGHT NEED TRACH /PEG AND LTAC FOR MORE PROLONGED RECOVERY AND VENT LIBERATION Hypoternsion 08/31 - suspected intravascular depletion and opioids effect, doubt new sepsis Shock resolved -pressors OFF 08/26 - few hours levo 08/31 -ECHO 08/09/22 - EF 55% , RVSP 50 mmHg Sepsis ( off -clindamycin and gentamicin) - sputum + for PSA - changed to merrem 08/24 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 - as per sx , wound vac placed 08/25 RA resolved - follow with hydration , albumin , transfusion Volume overload - RVSP 50 mmHg , CVP12 - Cr improving , negative volume status now - HAS GOOD OU spontaneously , monitor , no need to initiate diuresis now ( but she is VO Anemia (Perioperative anemia hb 9 - no obvious bleeding -s/p transfusion 1 u PRBC 08/24 , and 2 u PRBC 08/25, 1 pRBC 08/31 Hyponatremia - resolved Pulm HTN - ECHO 08/09/22 RVSP 50 mmHg - fluid status as per renal now - follow Nutrition - as per Sx , - on Glycerna with pr Diarrhea- suspected as a result of TF started - FLEXYSEAL 08/30 Lines : L IJ 08/22 (Central Line Necessity Reviewed) Phillips: + FLEXYSEAL 08/30 OG: Nutrition: glycerna - up to goal Analgesia: Anxiety/ delirium VTE Prophylaxis: heparin sq if no active bleeding Stress Ulcer Prophylaxis: ppi Plans in collaboration with bedside consultants and IM MDs. Discussed with RN to reach out if any questions or concerns A total of 32 minutes of critical care time was devoted to this patient today, required to treat and/or prevent further deterioration of critical care condition ( as above ) . Sepsis Event Evaluation Height, Weight, BMI Height: 5'4.00" Weight: 193lbs. 3.0oz. [id number]; 40.55 BMI Method: Exam Exam Patient acknowledged, consented, and participated in this virtual visit which was conducted using real time audio/video Vital Signs Date Time Temp Pulse Resp B/P (MAP) Pulse Ox O2 Delivery O2 Flow Rate FiO2 09/01/22 09:00 117 12 106/47 (66) 99 Mechanical Ventilator 21.00 09/01/22 08:00 61 26 104/63 (77) 100 Mechanical Ventilator 21.00 09/01/22 07:27 21 09/01/22 07:27 89 09/01/22 07:20 Mechanical Ventilator 21.00 09/01/22 07:08 79 18 100 30 09/01/22 07:00 57 21 111/72 (85) 99 Mechanical Ventilator 30.00 09/01/22 06:33 37.6 09/01/22 06:32 80 116/53 09/01/22 06:00 76 16 116/62 (86) 100 Mechanical Ventilator 30.00 09/01/22 05:00 79 16 117/61 (81) 100 Mechanical Ventilator 30.00 09/01/22 04:00 100 Mechanical Ventilator 30 09/01/22 04:00 80 16 113/55 (79) 100 Mechanical Ventilator 30.00 09/01/22 03:00 80 16 117/57 (82) 100 Mechanical Ventilator 30.00 09/01/22 02:39 79 16 100 30 09/01/22 02:00 82 16 111/56 (78) 100 Mechanical Ventilator 30.00 09/01/22 01:00 85 09/01/22 01:00 85 16 104/53 (72) 100 Mechanical Ventilator 30.00 09/01/22 00:00 82 16 112/57 (78) 98 Mechanical Ventilator 30.00 08/31/22 23:59 98 Mechanical Ventilator 30 08/31/22 23:00 89 16 96/48 (66) 98 Mechanical Ventilator 30.00 08/31/22 22:38 36.9 08/31/22 22:08 37.1 08/31/22 22:04 86 131/61 08/31/22 22:00 87 16 131/61 (92) 100 Mechanical Ventilator 30.00 08/31/22 21:34 86 18 100 30 08/31/22 21:00 87 16 117/54 (80) 100 Mechanical Ventilator 30.00 08/31/22 20:00 37.1 08/31/22 20:00 98 Mechanical Ventilator 30 08/31/22 20:00 97 16 119/53 (75) 100 Mechanical Ventilator 30.00 08/31/22 19:00 101 16 125/57 (75) 100 Mechanical Ventilator 30.00 08/31/22 19:00 101 08/31/22 18:51 98 26 100 30 08/31/22 18:00 101 17 126/54 (78) 100 Mechanical Ventilator 30.00 08/31/22 17:46 36.7 99 16 121/55 100 Mechanical Ventilator 30 08/31/22 17:00 106 23 132/76 (94) 98 Mechanical Ventilator 30.00 08/31/22 16:00 112 26 111/79 (90) 97 Mechanical Ventilator 30.00 08/31/22 16:00 98 Mechanical Ventilator 30 08/31/22 16:00 37.0 08/31/22 15:00 111 18 91/32 (51) 96 Mechanical Ventilator 30.00 08/31/22 14:27 37.4 107 27 105/60 99 Mechanical Ventilator 30 08/31/22 14:17 101 22 100 30 08/31/22 14:10 104 37 99 30 08/31/22 14:07 37.7 93 23 112/42 100 Mechanical Ventilator 30 08/31/22 14:00 93 23 120/51 (74) 100 Mechanical Ventilator 30.00 08/31/22 13:01 87 08/31/22 13:00 90 16 95/43 (60) 98 Mechanical Ventilator 30.00 08/31/22 12:23 90/38 08/31/22 12:18 36.9 08/31/22 12:00 93 14 118/53 (74) 98 Mechanical Ventilator 30.00 08/31/22 12:00 97 Mechanical Ventilator 30 08/31/22 11:00 99 13 100/43 (62) 98 Mechanical Ventilator 30.00 I & O 09/01/22 07:00 Intake Total 2910 ml Output Total 1860 ml Balance 1050 ml Height & Weight Height: 5'4.00" Weight: 193lbs. 3.0oz. [id number]; 40.55 BMI Method: General Appearance: No Apparent Distress HEENT: Pharynx Normal, Moist Mucous Membranes Neck: Non Tender, Supple; No JVD Respiratory: Normal Breath Sounds, Other (on vent.) Cardiovascular: Regular Rate, Rhythm, No Murmur Capillary Refill: Less Than 3 Seconds Gastrointestinal: normal bowel sounds, non tender, soft, other (yellow serous fluid in L drain, the right now looks a little darker) Extremity: No Pedal Edema Neurologic/Psychiatric: Alert, Motor Weakness (weaker compared to previous assessment ) Skin: Normal Color, Warm/Dry Lymphatic: No Adenopathy Results Lab Laboratory Tests 08/31/22 03:15 09/01/22 05:20 Assessment/Plan Assessment/Plan 1 WALI HOGAN MD Sep 01, 2022 10:40
[2022-09-01] MEDS: morphine INJ 4 MG/ML 1 ML (VIAL/SYRINGE) IVP PRN ×2 (13:09→20:20)
--- NOTE | 2022-09-01 14:15 | Progress Note - Hospitalist ---
KAYA SANCHES 09/01/22 1415: Subjective HPI/CC On Admission Date Seen by Provider: Sep 01, 2022 Time Seen by Provider: 09:00 Roseann had an SBT trial yesterday, and was only able to tolerate about 5 minutes. She also had a drop in blood pressure yesterday requiring brief pressor support, presumably due to a medication administered. She is off pressors today, off precedex, and satting in 90s on 30% FiO2. Had discussion with granddaughter today about transitioning to a tracheostomy and PEG tube. They are reluctant to do so. They stated that she had poor respiratory function at home and took shallow breaths at baseline. Explained the benefits of doing trach/peg procedure for patients who requiring a longer amount of time on the ventilator. Review of Systems Gastrointestinal: No: Nausea, Abdominal Pain Objective Exam Vital Signs Vital Signs Date Time Temp Pulse Resp B/P (MAP) Pulse Ox O2 Delivery O2 Flow Rate FiO2 09/01/22 13:29 121 35 93 30 09/01/22 13:09 37.1 09/01/22 11:00 115/55 (75) Mechanical Ventilator 21.00 Capillary Refill : Less Than 3 Seconds General Appearance: No Apparent Distress HEENT: PERRL/EOMI, Moist Mucous Membranes; No Scleral Icterus (L), No Scleral Icterus (R) Neck: Normal Inspection, Non Tender, Supple; No JVD Respiratory: Lungs Clear, Other (decreased breath sounds left lower lung. 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 -08/23 anastomotic leak noted -drain placed by surgery, monitoring -wound vac and drain in place Septic shock AHRF Pneumonia -NorE, vaso paused, MAPs in 70s-90s over 24 hours -propofol paused since yesterday -cxr reviewed -blood cx grew nml skin edward x1 -sputum culture obtained from ET tube grew p aeru, on meropenem -awaiting susceptibility -SBT trials per icu team -cxr reviewed this AM, awaiting report, potentially decreased rib spacing left side, will consider bronch -discussion with family this afternoon about trach/peg placement RA Fluid Overload -Rise to >3 creatinine, trending down, 1.82 today -30kg weight gain since 08/18 -very edematous on exam, improved today -having adequate urine output -nephro on board, happy with urine output -significantly improved edema on exam -lasix given yesterday -total output yesterday 2L -84 kg on admit, 116 peak, now 101kg Seizure d/o -on IV keppra, continue Hx of HTN -monitor Microcytic Anemia -received 3x blood transfusions so far. -Hgb trending up -[facility] noted hx of iron deficiency anemia -pRBC transfusion yesterday, hgb up Dispo: To consider bronchoscopy. Day 9 on vent, Discussion with family about Trach/peg. CLARISSA FREDERICK DO 09/01/222051: Supervisory-Addendum Brief Verification & Attestation Participated in pt care: history, MDM, physical Personally performed: exam, history, MDM, supervision of care Care discussed with: Medical Student Procedures: n/a Results interpretation: Verified all documentation Verification and Attestation of Medical Student E/M Service A medical student performed and documented this service in my presence. I reviewed and verified all information documented by the medical student and made modifications to such information, when appropriate. I personally performed the physical exam and medical decision making. Clarissa Frederick Sep 01, 2022,20:52 KAYA SANCHES Sep 01, 2022 14:15 CLARISSA FREDERICK DO Sep 01, 2022 20:52
--- NOTE | 2022-09-01 17:06 | Diagnostic Imaging Report ---
EXAMINATION: Chest, one view. HISTORY: Intubated. COMPARISON: 08/28/2022. FINDINGS: Patient is intubated with the endotracheal tube 5 cm above the ai. Gastric tube is in the body of the stomach. Heart is enlarged. There is bibasilar atelectasis or pneumonia. No pneumothorax. There is superimposed pulmonary edema. IMPRESSION: 1. Bibasilar atelectasis or pneumonia with superimposed pulmonary edema, similar to prior exam. Dictated by: Dictated on workstation # [id number]
[2022-09-01] MEDS: PRAMIPEXOLE 0.125 MG (MIRAPEX) TABLET PO SCH (20:39)
[2022-09-01] MEDS: DONEPEZIL 10 MG (ARICEPT) TAB PO SCH (20:39)
[2022-09-01] MEDS: ALBUMIN 25% 25 GM/100 ML 100 ML IV SCH (22:31)
[2022-09-02] MEDS: inSUlin ASPART (NovoLOG) 1 UNIT/0.01 ML (CHARGE PER UNIT) SC SCH ×4 (00:35→17:05)
[2022-09-02] MEDS: PROPOFOL DRIP (ICU) 100 ML IV SCH ×3 (00:35→16:45)
[2022-09-02] MEDS: MEROPENEM 500 MG/NS 100 ML IVPB IV SCH ×8 (02:19→22:00)
[2022-09-02] MEDS: morphine INJ 4 MG/ML 1 ML (VIAL/SYRINGE) IVP PRN ×3 (02:19→14:17)
[2022-09-02 02:38] VITALS: BP 145/84
[2022-09-02] MEDS: RT-ALBUTEROL/IPRATROPIUM 3 ML (DUONEB) VIAL INH SCH ×6 (02:38→22:28)
[2022-09-02 03:27] LABS: BASOPHILS # (AUTO) 0.1 10^3/uL (0.0-0.1); BASOPHILS % (AUTO) 0 % (0-10); EOSINOPHILS # (AUTO) 0.2 10^3/uL (0.0-0.3); EOSINOPHILS % (AUTO) 1 % (0-10); HEMATOCRIT 28 % (35-52); HEMOGLOBIN 8.8 g/dL (11.5-16.0); LYMPHOCYTES # (AUTO) 1.7 10^3/uL (1.0-4.0); LYMPHOCYTES % (AUTO) 11 % (12-44); MEAN CORPUSCULAR HEMOGLOBIN 25 pg (25-34); MEAN CORPUSCULAR HGB CONC 31 g/dL (32-36); MEAN CORPUSCULAR VOLUME 79 fL (80-99); MEAN PLATELET VOLUME 9.8 fL (9.0-12.2); MONOCYTES # (AUTO) 1.1 10^3/uL (0.0-1.0); MONOCYTES % (AUTO) 7 % (0-12); NEUTROPHILS # (AUTO) 13.1 10^3/uL (1.8-7.8); NEUTROPHILS % (AUTO) 81 % (42-75); PLATELET COUNT 670 10^3/uL (130-400); WHITE BLOOD COUNT 16.3 10^3/uL (4.3-11.0)
[2022-09-02 03:37] LABS: ALBUMIN 2.6 GM/DL (3.2-4.5)
[2022-09-02 03:39] LABS: POTASSIUM 4.6 MMOL/L (3.6-5.0)
[2022-09-02 03:40] LABS: CALCIUM 8.4 MG/DL (8.5-10.1); TOTAL PROTEIN 5.4 GM/DL (6.4-8.2)
[2022-09-02 03:42] LABS: BILIRUBIN,TOTAL 0.5 MG/DL (0.1-1.0)
[2022-09-02 03:44] LABS: PHOSPHORUS 3.1 MG/DL (2.3-4.7)
[2022-09-02 03:45] LABS: BILIRUBIN,DIRECT 0.4 MG/DL (0.0-0.3); BILIRUBIN,INDIRECT 0.1 MG/DL; CREATININE SERUM 0.83 MG/DL (0.60-1.30)
[2022-09-02 03:47] LABS: MAGNESIUM 2.2 MG/DL (1.6-2.4)
[2022-09-02 03:54] LABS: ANISOCYTOSIS SLIGHT; BAND NEUTROPHILS 1 %; BASOPHILS % (MANUAL) 0 %; EOSINOPHILS % (MANUAL) 1 %; HYPOCHROMASIA MARKED; LYMPHOCYTES % (MANUAL) 12 %; MONOCYTES % (MANUAL) 1 %; NEUTROPHILS % (MANUAL) 83 %; REACTIVE LYMPHOCYTES 2 %; SCHISTOCYTES SLIGHT; TARGET CELLS MODERATE; TEAR DROP CELLS SLIGHT
[2022-09-02] MEDS: POTASSIUM CL 10MEQ/50ML IVPB 50 ML IV SCH (04:13)
[2022-09-02] MEDS: MAGNESIUM 1 GM/100 ML IVPB 100 ML IV SCH (04:13)
[2022-09-02] MEDS: KCL 20 MEQ TAB (K-DUR) PO SCH (04:13)
[2022-09-02] MEDS: ALBUMIN 25% 25 GM/100 ML 100 ML IV SCH (05:16)
[2022-09-02 07:19] VITALS: BP 126/63
--- NOTE | 2022-09-02 07:36 | Progress Note - Surgery ---
DARRON HIGGINS 09/02/22 0736: Subjective Date Seen by a Provider: Sep 02, 2022 Time Seen by a Provider: 07:00 Subjective/Events-last exam Patient intubated for ventilation (FiO2 30%). Her response to commands (hand squeeze) is stronger compared to yesterdays assessment. When asked if she is experiencing abdominal pain and nausea, she shakes her head yes. This morning, her RICCARDO bag is draining clear, dark fluid (similar to yesterday morning) as well as light brown, opaque fluid (not observed yesterday). Per nursing, total RICCARDO output was 20 mL over 24 hours, an increased compared to the previous 24 hrs (total drainage 15 mL). Urine output 625 mL over 12 hrs. Stool output 300 mL over 12 hrs. Patient had an episode of hypotension (95/44) yesterday evening; levophed was restarted and she is on a dose of 0.01 and normotensive at this time. Review of Systems Gastrointestinal: Nausea, Abdominal Pain Objective Exam Vital Signs Date Time Temp Pulse Resp B/P (MAP) Pulse Ox O2 Delivery O2 Flow Rate FiO2 09/02/22 07:19 79 16 96 30 09/02/22 07:00 79 09/02/22 06:00 86 16 120/64 (82) 99 Mechanical Ventilator 30.00 09/02/22 05:54 137/79 09/02/22 05:00 85 17 128/63 (84) 100 Mechanical Ventilator 30.00 09/02/22 04:00 90 19 128/59 (82) 98 Mechanical Ventilator 30.00 09/02/22 04:00 100 Mechanical Ventilator 30 09/02/22 04:00 37.2 16 99 Mechanical Ventilator 30.00 09/02/22 03:41 90 128/59 09/02/22 03:00 93 19 141/87 (105) 98 Mechanical Ventilator 30.00 09/02/22 02:38 84 16 100 30 09/02/22 02:30 90/46 09/02/22 02:22 195/84 09/02/22 02:00 93 17 145/73 (97) 99 Mechanical Ventilator 30.00 09/02/22 01:00 83 20 142/68 (92) 99 Mechanical Ventilator 30.00 09/02/22 01:00 82 09/02/22 00:35 93 134/66 09/02/22 00:00 86 16 129/60 (83) 99 Mechanical Ventilator 21.00 09/02/22 00:00 36.9 100 Mechanical Ventilator 30.00 09/01/22 23:59 100 Mechanical Ventilator 30 09/01/22 23:41 93 134/66 09/01/22 23:00 93 19 134/66 (88) 100 Mechanical Ventilator 21.00 09/01/22 22:17 86 20 100 30 09/01/22 22:00 85 19 130/60 (83) 100 Mechanical Ventilator 21.00 09/01/22 21:30 90/41 09/01/22 21:00 93 18 125/61 (82) 100 Mechanical Ventilator 21.00 09/01/22 20:00 98 16 109/49 (69) 100 Mechanical Ventilator 21.00 09/01/22 19:34 100 Mechanical Ventilator 30 09/01/22 19:00 100 09/01/22 19:00 101 20 111/46 (67) 100 Mechanical Ventilator 21.00 09/01/22 18:57 98 23 100 30 09/01/22 18:40 37.1 09/01/22 18:00 101 25 97/44 (61) 99 Mechanical Ventilator 21.00 09/01/22 17:45 99 17 95/44 (61) 99 Mechanical Ventilator 21.00 09/01/22 17:30 100 18 92/42 (59) 98 Mechanical Ventilator 21.00 09/01/22 17:27 37.5 09/01/22 17:15 103 25 91/41 (58) 98 Mechanical Ventilator 21.00 09/01/22 17:00 106 19 95/44 (61) 97 Mechanical Ventilator 21.00 09/01/22 16:30 38.9 09/01/22 16:30 38.9 09/01/22 16:00 126 25 101/38 (59) 97 Mechanical Ventilator 21.00 09/01/22 16:00 100 Mechanical Ventilator 21 09/01/22 15:57 38.8 09/01/22 15:14 128 20 96 30 09/01/22 15:00 131 33 110/45 (66) 97 Mechanical Ventilator 21.00 09/01/22 14:00 130 20 129/64 (85) 96 Mechanical Ventilator 21.00 09/01/22 13:50 134 28 93 30 09/01/22 13:29 121 35 93 30 09/01/22 13:09 37.1 09/01/22 13:00 113 33 151/65 (93) 90 Mechanical Ventilator 21.00 09/01/22 12:51 114 09/01/22 12:00 36.9 09/01/22 12:00 100 Mechanical Ventilator 21 09/01/22 12:00 109 28 149/83 (105) 93 Mechanical Ventilator 21.00 09/01/22 11:27 96 23 92 21 09/01/22 11:00 100 28 115/55 (75) 92 Mechanical Ventilator 21.00 09/01/22 10:32 114 106/57 09/01/22 10:00 112 20 122/54 (76) 91 Mechanical Ventilator 21.00 09/01/22 09:00 117 12 106/47 (66) 99 Mechanical Ventilator 21.00 09/01/22 08:00 61 26 104/63 (77) 100 Mechanical Ventilator 21.00 09/01/22 08:00 100 Mechanical Ventilator 21 I & O 09/02/22 07:00 Intake Total 2890 ml Output Total 1965 ml Balance 925 ml Capillary Refill : Less Than 3 Seconds General Appearance: No Apparent Distress HEENT: Pharynx Normal, Moist Mucous Membranes Neck: Non Tender, Supple; No JVD Respiratory: Normal Breath Sounds, Other (on vent.) Cardiovascular: Regular Rate, Rhythm, No Murmur Gastrointestinal: normal bowel sounds, soft, tenderness (diffusely), other (right RICCARDO bag draining fluid that is dark and clear mixed with opaque light brown) Extremity: No Pedal Edema Neurologic/Psychiatric: Alert, Motor Weakness (stronger today compared to previous assessment) Skin: Normal Color, Warm/Dry Lymphatic: No Adenopathy Results Lab Laboratory Tests 09/01/22 12:13: Glucometer 90 09/01/22 13:46: Lab Scanned Report Transfusion Reaction Form 09/01/22 18:50: Glucometer 117H 09/02/22 00:34: Glucometer 114H 09/02/22 03:14: White Blood Count 16.3H, Red Blood Count 3.58L, Hemoglobin 8.8L, Hematocrit 28L, Mean Corpuscular Volume 79L, Mean Corpuscular Hemoglobin 25, Mean Corpuscular Hemoglobin Concent 31L, Red Cell Distribution Width 25.8H, Platelet Count 670H, Mean Platelet Volume 9.8, Immature Granulocyte % (Auto) 1, Neutrophils (%) (Auto) 81H, Lymphocytes (%) (Auto) 11L, Monocytes (%) (Auto) 7, Eosinophils (%) (Auto) 1, Basophils (%) (Auto) 0, Neutrophils # (Auto) 13.1H, Lymphocytes # (Auto) 1.7, Monocytes # (Auto) 1.1H, Eosinophils # (Auto) 0.2, Basophils # (Auto) 0.1, Immature Granulocyte # (Auto) 0.2H, Neutrophils % (Manual) 83, Lymphocytes % (Manual) 12, Monocytes % (Manual) 1, Eosinophils % (Manual) 1, Basophils % (Manual) 0, Band Neutrophils 1, Reactive Lymphocytes 2, Hypochromasia MARKED, Anisocytosis SLIGHT, Target Cells MODERATE, Tear Drop Cells SLIGHT, Schistocytes SLIGHT, Sodium Level 144, Potassium Level 4.6, Chloride Level 114H, Carbon Dioxide Level 22, Anion Gap 8, Blood Urea Nitrogen 38H, Creatinine 0.83, Estimat Glomerular Filtration Rate 73, BUN/Creatinine Ratio 46, Glucose Level 119H, Calcium Level 8.4L, Phosphorus Level 3.1, Magnesium Level 2.2, Total Bilirubin 0.5, Direct Bilirubin 0.4H, Indirect Bilirubin 0.1, Aspartate Amino Transf (AST/SGOT) 22, Alanine Aminotransferase (ALT/SGPT) 18, Alkaline Phosphatase 47, Total Protein 5.4L, Albumin 2.6L, Procalcitonin 0.73H Microbiology 08/23/22 Gram Stain - Final, Complete 08/23/22 Sputum Culture - Final, Complete Pseudomonas aeruginosa Mixed Bacterial Maida 08/22/22 Blood Culture - Final, Complete Streptococcus mitis group See Comments 08/22/22 Urine Culture - Final, Complete NO GROWTH Assessment/Plan Assessment/Plan Assessment/Plan Anemia - stable Hypotension - normotensive on 0.01 Levophed since yesterday afternoon S/P Laparoscopic hand assisted right hemicolectomy (08/18) S/P Diagnostic lap with abd washout and colon resection and re-anastamosis (08/23) Septic shock secondary to S. viridins-resolved RA - resolved Leukocytosis - WBC 16.3 today after normal WBC on 08/31-09/01 Thrombocythemia - platelets 670 today Continue Meropenem, continue pain medication, continue IVF continue tube feeds and PO medication as tolerated via tube continue to monitor Hgb Hope to extubate soon. CHITRAKOURTNEY DARLING DO 09/02/22 1229: Subjective Time Seen by a Provider: 11:48 Subjective/Events-last exam Pt seen and examined, daughter at bedside. Pt is more alert today than I have seen in her in past week. Nurse states she is off pressors, they just finished wound VAC change and are about to do SBT. Objective Exam General Appearance: No Apparent Distress HEENT: Moist Mucous Membranes, Other (ET tube in place) Respiratory: Normal Breath Sounds, Other (on vent.) Cardiovascular: Regular Rate, Rhythm, No Murmur Gastrointestinal: normal bowel sounds, soft, tenderness (diffusely), other (right RICCARDO bag draining fluid that is darker, but looking more serosanguinous now. Midline incision looks good from picture Wound care team took. Lots of fecal material in bag) Neurologic/Psychiatric: Alert Assessment/Plan Assessment/Plan Assessment/Plan Anemia - stable Hypotension - resolved and off pressors S/P Laparoscopic hand assisted right hemicolectomy (08/18) S/P Diagnostic lap with abd washout and colon resection and re-anastamosis (08/23) Septic shock secondary to S. viridins-resolved RA - resolved Leukocytosis - WBC 16.3 today after normal WBC on 08/31-09/01 Thrombocythemia - platelets 670 today Continue Meropenem, continue pain medication, continue IVF. Will check UA, CXR and D/C central line as soon as pt gets PICC placed continue tube feeds and PO medication as tolerated via tube continue to monitor Hgb Hope to extubate soon, I did talk with Hilton about the fact that if she is on the vent for another 4 days and not improving she may need a trach Supervisory-Addendum Brief Verification & Attestation Participated in pt care: history, MDM, physical Personally performed: exam, history, MDM, supervision of care Care discussed with: Medical Student Procedures: n/a Verification and Attestation of Medical Student E/M Service A medical student performed and documented this service. I then reviewed and verified all information documented by the medical student and made modifications to such information, when appropriate. I personally performed a physical exam, medical decision making and then discussed any differences between the notes and made revisions as necessary to create one note. Kourtney Bhatia , 09/02/22 , 12:28 DARRON HIGGINS Sep 02, 2022 07:36 KOURTNEY BHATIA DO Sep 02, 2022 12:29
[2022-09-02] MEDS ORDERED: FUROSEMIDE 40 MG/4 ML INJ (LASIX) IVP NR (08:00)
[2022-09-02] MEDS: NOREPINEPHRINE 8 MG/250 ML 250 ML IV SCH ×2 (08:00→16:58)
--- NOTE | 2022-09-02 08:31 | Cardiology Progress Note ---
Subjective Date Seen by Provider: Sep 02, 2022 Time Seen by Provider: 08:31 Subjective/Events-last exam Patient is intubated, responding, failing weaning Objective-Cardiology Exam Last Set of Vital Signs Vital Signs 09/02/22 09/02/22 07:19 08:00 Pulse 88 Resp 16 B/P (MAP) 101/48 (65) Pulse Ox 97 O2 Delivery Mechanical Ventilator O2 Flow Rate 30.00 FiO2 30 I&O Intake and Output 09/02/22 00:00 Intake Total 2970 ml Output Total 1895 ml Balance 1075 ml IV Total 1100 ml Tube Feeding 1200 ml Enteral Flush 200 ml Other 470 ml Output Urine Total 1475 ml Stool Total 400 ml Drainage Total 20 ml # Bowel Movements 3 General: Alert, Cooperative, Other (intubated) Lungs: Normal Air Movement, Other Heart: Other (tachycardic) Abdomen: Normal Bowel Sounds, Soft Extremities: Other (2+ pitting edema) Skin: No Rashes, No Significant Lesion Neuro: Other (Intubated, following commands) Psych/Mental Status: Other (Intubated) Results Lab Laboratory Tests 09/02/22 03:14 A/P-Cardiology Admission Diagnosis Septic shock Hypotension Adenocardinoma Assessment/Plan Adenocarinoma of ascending colon, s/p partial colon and intraperitoneal mass resection Status post acute abdomen on August 23, 2022 underwent exploratory laparotomy, anastomosis leak was noted Currently having a drain, managed by surgical team Septic shock, hypotensive, tachycardic, respiratory failure Currently blood pressure and heart rate are better Currently off pressors Responded to Lasix Ventilator dependent respiratory failure, Failed multiple attempt for weaning, possible trach Sinus tachycardia secondary to sepsis Continue with supportive care History of hypertension, continue to monitor Nonobstructive carotid artery stenosis per carotid duplex done Jul 2022. NORMA DIAMOND MD Sep 02, 2022 08:31
[2022-09-02] MEDS: VITAMIN D3 25 MCG (1,000 UNITS) TABLET PO SCH (08:43)
[2022-09-02] MEDS: levETIRAcetam 1000 mg/NS 100ml IVPB IV SCH ×2 (08:43→20:48)
[2022-09-02] MEDS: lisINopril 20 MG (PRINIVIL) TABLET PO SCH (08:44)
[2022-09-02] MEDS: OXYBUTYNIN (DITROPAN) 5 MG TAB PO SCH ×2 (08:44→22:01)
[2022-09-02] MEDS: ACETAMINOPHEN 500 MG TAB (TYLENOL) PO SCH ×2 (08:44→15:00)
[2022-09-02] MEDS: PANTOPRAZOLE 40 MG (PROTONIX) VIAL IVP SCH (08:44)
[2022-09-02] MEDS: risperiDONE 0.5 MG (RisperDAL) TABLET PO SCH ×2 (08:44→22:01)
[2022-09-02] MEDS: ENOXAPARIN 40 MG/0.4 ML (LOVENOX) SYR SC SCH (09:00)
[2022-09-02] MEDS: MICONAZOLE 2% POWDER (DESENEX AF) 90 GM TOP SCH ×2 (09:23→22:01)
--- NOTE | 2022-09-02 09:33 | Tele-ICU Progress Note ---
Subjective Date Seen by a Provider: Sep 02, 2022 Time Seen by a Provider: 09:33 Subjective/Events-last exam Tele-ICU Physician , consultation) Available chart/ vitals / labs / Images reviewed H&P is from ER notes Patient's information available about PMH, allergy reviewed in EMR. ROS as per chart and RN report Video assessment done using teleICU camera, rest of exam as per RN Discussed with RN. She is a 76-year-old female who is morbidly obese apparently found to have adenocarcinoma of the ascending colon for which she underwent right hemicolectomy on 08/18/2022 and postoperatively she was recuperating and surgical floor and today she developed a respiratory distress hypoxia, hypotension. Her lactic acid is elevated. Also her urine output is decreased. She has signs and symptoms of sepsis hence she is transferred to the intensive care unit and started on IV Levophed. She is also placed on a BiPAP ventilation. Her abdomen is markedly distended and tender suspicious for some acute process. Hence she is being taken to operating room for diagnostic laparoscopy and further evaluati on. It is expected that she would come back on mechanical ventilation. 08/27/22 she remained on vent. she failed SBT on 08/27/22. today she is off sedation, no pressors. on vent rr/21%/450/5. 09/02/22 she is still remained on the vent. reportedly failed sbt's before. currently she is off the pressors but has mod. dose of precedex on board. resting comfortably. wbc count jumped to 16.5 she still has ruth drain and wound vac. Impression 1. Acute hypoxic respiratory failure secondary to possible underlying sepsis, pneumonia and clinically improving. 2. Hypotension secondary to possible sepsis improved 3. Lactic acidosis secondary to sepsis resolved 4. 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, had anastomotic leak requiring resection of colon again 5. Leucocytosis. Needs to be concerned about developing abscess in the belly. also troy peritonitis also to be concerned. 6. Perioperative anemia stable. Recommendations 1. We will try on sbt again on 30% fio2 and ps 10 and see the response 2. continue antibiotics and add fluconazole. 3. DVT prophylaxis and ulcer prophylaxis 4. will consider repeat ct abd,pelvis chest Coordination of care with bedside consultants and primary care physician critical care time spent approximately 25 minutes. Review of Systems ros per rn Sepsis Event Evaluation Height, Weight, BMI Height: 5'4.00" Weight: 193lbs. 3.0oz. [id number]; 39.95 BMI Method: Exam Exam Patient acknowledged, consented, and participated in this virtual visit which was conducted using real time audio/video Vital Signs Date Time Temp Pulse Resp B/P (MAP) Pulse Ox O2 Delivery O2 Flow Rate FiO2 09/02/22 08:00 88 16 101/48 (65) 97 Mechanical Ventilator 30.00 09/02/22 07:35 36.6 Mechanical Ventilator 30.00 09/02/22 07:35 84 122/58 09/02/22 07:35 87 122/58 09/02/22 07:19 79 16 96 30 09/02/22 07:00 78 16 122/64 (83) 97 Mechanical Ventilator 30.00 09/02/22 07:00 79 09/02/22 06:00 86 16 120/64 (82) 99 Mechanical Ventilator 30.00 09/02/22 05:54 137/79 09/02/22 05:00 85 17 128/63 (84) 100 Mechanical Ventilator 30.00 09/02/22 04:00 90 19 128/59 (82) 98 Mechanical Ventilator 30.00 09/02/22 04:00 100 Mechanical Ventilator 30 09/02/22 04:00 37.2 16 99 Mechanical Ventilator 30.00 09/02/22 03:41 90 128/59 09/02/22 03:00 93 19 141/87 (105) 98 Mechanical Ventilator 30.00 09/02/22 02:38 84 16 100 30 09/02/22 02:30 90/46 09/02/22 02:22 195/84 09/02/22 02:00 93 17 145/73 (97) 99 Mechanical Ventilator 30.00 09/02/22 01:00 83 20 142/68 (92) 99 Mechanical Ventilator 30.00 09/02/22 01:00 82 09/02/22 00:35 93 134/66 09/02/22 00:00 86 16 129/60 (83) 99 Mechanical Ventilator 21.00 09/02/22 00:00 36.9 100 Mechanical Ventilator 30.00 09/01/22 23:59 100 Mechanical Ventilator 30 09/01/22 23:41 93 134/66 09/01/22 23:00 93 19 134/66 (88) 100 Mechanical Ventilator 21.00 09/01/22 22:17 86 20 100 30 09/01/22 22:00 85 19 130/60 (83) 100 Mechanical Ventilator 21.00 09/01/22 21:30 90/41 09/01/22 21:00 93 18 125/61 (82) 100 Mechanical Ventilator 21.00 09/01/22 20:00 98 16 109/49 (69) 100 Mechanical Ventilator 21.00 09/01/22 19:34 100 Mechanical Ventilator 30 09/01/22 19:00 100 09/01/22 19:00 101 20 111/46 (67) 100 Mechanical Ventilator 21.00 09/01/22 18:57 98 23 100 30 09/01/22 18:40 37.1 09/01/22 18:00 101 25 97/44 (61) 99 Mechanical Ventilator 21.00 09/01/22 17:45 99 17 95/44 (61) 99 Mechanical Ventilator 21.00 09/01/22 17:30 100 18 92/42 (59) 98 Mechanical Ventilator 21.00 09/01/22 17:27 37.5 09/01/22 17:15 103 25 91/41 (58) 98 Mechanical Ventilator 21.00 09/01/22 17:00 106 19 95/44 (61) 97 Mechanical Ventilator 21.00 09/01/22 16:30 38.9 09/01/22 16:30 38.9 09/01/22 16:00 126 25 101/38 (59) 97 Mechanical Ventilator 21.00 09/01/22 16:00 100 Mechanical Ventilator 21 09/01/22 15:57 38.8 09/01/22 15:14 128 20 96 30 09/01/22 15:00 131 33 110/45 (66) 97 Mechanical Ventilator 21.00 09/01/22 14:00 130 20 129/64 (85) 96 Mechanical Ventilator 21.00 09/01/22 13:50 134 28 93 30 09/01/22 13:29 121 35 93 30 09/01/22 13:09 37.1 09/01/22 13:00 113 33 151/65 (93) 90 Mechanical Ventilator 21.00 09/01/22 12:51 114 09/01/22 12:00 36.9 09/01/22 12:00 100 Mechanical Ventilator 21 09/01/22 12:00 109 28 149/83 (105) 93 Mechanical Ventilator 21.00 09/01/22 11:27 96 23 92 21 09/01/22 11:00 100 28 115/55 (75) 92 Mechanical Ventilator 21.00 09/01/22 10:32 114 106/57 09/01/22 10:00 112 20 122/54 (76) 91 Mechanical Ventilator 21.00 I & O 09/02/22 07:00 Intake Total 2890 ml Output Total 1965 ml Balance 925 ml Height & Weight Height: 5'4.00" Weight: 193lbs. 3.0oz. 87.873605qy; 39.95 BMI Method: General Appearance: No Apparent Distress HEENT: Pharynx Normal, Moist Mucous Membranes Neck: Non Tender, Supple; No JVD Respiratory: Normal Breath Sounds, Other (on vent.) Cardiovascular: Regular Rate, Rhythm, No Murmur Capillary Refill: Less Than 3 Seconds Gastrointestinal: normal bowel sounds, soft, tenderness (diffusely), other (right RUTH bag draining fluid that is dark and clear mixed with opaque light brown) Extremity: No Pedal Edema Neurologic/Psychiatric: Alert, Motor Weakness (stronger today compared to previous assessment) Skin: Normal Color, Warm/Dry Lymphatic: No Adenopathy Other comments pe per rn Results Lab Laboratory Tests 09/01/22 05:20 09/02/22 03:14 Assessment/Plan Assessment/Plan as above Critical Care: Critically Ill Patient Time spent with patient (mins): 25 ALEK MINOR MD Sep 02, 2022 09:33
[2022-09-02] MEDS ORDERED: PROCHLORPERAZINE 10 MG/2ML INJ (COMPAZINE) IV PRN (09:45)
[2022-09-02] MEDS ORDERED: FLUCONAZOLE 200 MG/100 ML 100 ML IV NR (10:00)
[2022-09-02] MEDS: HYPOCHLOROUS ACID/NaCl (VASHE) 250 ML IR PRN (12:17)
--- NOTE | 2022-09-02 13:07 | Wound Care Assessment ---
Wound Care Assessment Date Seen by Provider: Sep 02, 2022 Time Seen by Provider: 13:02 Chief Complaint Surgical dehiscence HPI This 76 year old patient was admitted to the hospital and found to have numerous complex medical ailments. 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 She did experience post-operative anemia. She does also exhibit signs of sepsis with pseudomonas on sputum culture (managed by primary team). She does also have PEM (see albumin). I was consulted to assist in wound vac management. She has had improvements in measurement and granulation since initiation of wound vac therapy. She continues with serous drainage (less noted today on exam). She continues to struggle with vent weaning and there is now discussion of PEG, tracheostomy and nursing home acute care stay being appropriately discussed. Past Medical History: Admits Cancer, Treaments Smoking Status: Never a Smoker Review of Systems Other systems Unable to obtain ROS due to ventilator status Exam Vital Signs Date Time Temp Pulse Resp B/P (MAP) Pulse Ox O2 Delivery O2 Flow Rate FiO2 09/02/22 12:53 80 09/02/22 12:00 21 105/56 (72) 94 Mechanical Ventilator 25.00 09/02/22 07:45 30 09/02/22 07:35 36.6 Capillary Refill : Less Than 3 Seconds General Appearance: WD/WN, other (ventilator status) Respiratory: other (ventilator status) Extremities: no pedal edema Neurologic/Psychiatric: other (awake and agitated on occasion) Wound assessment: 21.7x2.8x4.0cm. The epithelialization is none. There is no tunneling or undermining. Drainage is large and serosanguinous. Granulation is medium and pink, necrotic is medium and slough. The margins are flat. Results Laboratory Tests 09/01/22 13:46: Lab Scanned Report Transfusion Reaction Form 09/01/22 18:50: Glucometer 117H 09/02/22 00:34: Glucometer 114H 09/02/22 03:14: White Blood Count 16.3H, Red Blood Count 3.58L, Hemoglobin 8.8L, Hematocrit 28L, Mean Corpuscular Volume 79L, Mean Corpuscular Hemoglobin 25, Mean Corpuscular Hemoglobin Concent 31L, Red Cell Distribution Width 25.8H, Platelet Count 670H, Mean Platelet Volume 9.8, Immature Granulocyte % (Auto) 1, Neutrophils (%) (Auto) 81H, Lymphocytes (%) (Auto) 11L, Monocytes (%) (Auto) 7, Eosinophils (%) (Auto) 1, Basophils (%) (Auto) 0, Neutrophils # (Auto) 13.1H, Lymphocytes # (Aut o) 1.7, Monocytes # (Auto) 1.1H, Eosinophils # (Auto) 0.2, Basophils # (Auto) 0.1, Immature Granulocyte # (Auto) 0.2H, Neutrophils % (Manual) 83, Lymphocytes % (Manual) 12, Monocytes % (Manual) 1, Eosinophils % (Manual) 1, Basophils % (Manual) 0, Band Neutrophils 1, Reactive Lymphocytes 2, Hypochromasia MARKED, Anisocytosis SLIGHT, Target Cells MODERATE, Tear Drop Cells SLIGHT, Schistocytes SLIGHT, Sodium Level 144, Potassium Level 4.6, Chloride Level 114H, Carbon Dioxide Level 22, Anion Gap 8, Blood Urea Nitrogen 38H, Creatinine 0.83, Estimat Glomerular Filtration Rate 73, BUN/Creatinine Ratio 46, Glucose Level 119H, Calcium Level 8.4L, Phosphorus Level 3.1, Magnesium Level 2.2, Total Bilirubin 0.5, Direct Bilirubin 0.4H, Indirect Bilirubin 0.1, Aspartate Amino Transf (AST/SGOT) 22, Alanine Aminotransferase (ALT/SGPT) 18, Alkaline Phosphatase 47, Total Protein 5.4L, Albumin 2.6L, Procalcitonin 0.73H Microbiology 08/23/22 Gram Stain - Final, Complete 08/23/22 Sputum Culture - Final, Complete Pseudomonas aeruginosa Mixed Bacterial Maida 08/22/22 Blood Culture - Final, Complete Streptococcus mitis group See Comments 08/22/22 Urine Culture - Final, Complete NO GROWTH Assessment/Plan/Dx Assessment: 1. Surgical dehiscence 2. Adenocarcinoma s/p colonic resection 3. Acute kidney injury 4. Sepsis 5. Pneumonia (pseudomonal) 6. Post operative anemia 7. PEM Plan: 1. Continue wound vac at current settings. 2. Defer to Surgical team 3. Defer to Nephrology 4. Defer to primary team 5. Defer to primary team 6. Defer to primary team 7. Protein supplementation would be warranted once feeding initiated MARK DIANA MD Sep 02, 2022 13:07
--- NOTE | 2022-09-02 13:10 | Progress Note - Hospitalist ---
KAYA SANCHES 09/02/22 1310: Subjective HPI/CC On Admission Date Seen by Provider: Sep 02, 2022 Time Seen by Provider: 11:00 Roseann had an episode overnight of soft pressures and was placed on .1 levo, off now with MAPs in 80s. She failed another SBT yesterday. Family is at bedside and is reluctant to continue with trach/peg. Granddaughter states that she is waiting for her sister, who is an icu nurse at [employer], to come evaluate her. She says she is worried that her grandma, Roseann, is dependent on the vent because she is allowed to remain on it, and she will take the easier route if given. Explained benefits of transitioning to tracheostomy for longer term ventilator patients, and the process for weaning patients off of a ventilator. Review of Systems General: No Chills Cardiovascular: No: Palpitations Gastrointestinal: No: Abdominal Pain Objective Exam Vital Signs Vital Signs Date Time Temp Pulse Resp B/P (MAP) Pulse Ox O2 Delivery O2 Flow Rate FiO2 09/02/22 12:53 80 09/02/22 12:00 21 105/56 (72) 94 Mechanical Ventilator 25.00 09/02/22 07:45 30 09/02/22 07:35 36.6 Capillary Refill : Less Than 3 Seconds General Appearance: No Apparent Distress, Obese HEENT: PERRL/EOMI, Moist Mucous Membranes; No Scleral Icterus (L), No Scleral Icterus (R) Neck: Normal Inspection, Non Tender, Supple; No JVD Respiratory: Lungs Clear, Normal Breath Sounds, Other (breath sounds heard in all lung lazo. on ventilator at FiO2 30) Cardiovascular: Regular Rate, Rhythm, No JVD, No Murmur, Normal Peripheral Pulses Gastrointestinal: Normal Bowel Sounds; No Distended; Other (drains in place, dressing changed today.) Extremity: Normal Capillary Refill, Normal Inspection, Non Tender, No Calf Tenderness, Pedal Edema Neurologic/Psychiatric: Alert (oriented x2), copping machine operator II-XII Norm as Tested, Other (moves limbs spontaneously) Skin: Normal Color, Warm/Dry; No Jaundice Results/Procedures Lab Laboratory Tests 09/02/22 03:14 Patient resulted labs reviewed. 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 -08/23 anastomotic leak noted -drain placed by surgery, monitoring -wound vac and drain in place Septic shock AHRF Pneumonia -NorE, vaso paused, MAPs in 70s-90s over 24 hours -propofol paused since yesterday -cxr reviewed -blood cx grew nml skin edward x1 -sputum culture obtained from ET tube grew p aeru, on meropenem -awaiting susceptibility -SBT trials per icu team -cxr 09/01 without change from prior -wbc count up, fluconazole added per icu team RA Fluid Overload -Rise to >3 creatinine, trending down -30kg weight gain since 08/18 -very edematous on exam, improved today -having adequate urine output -nephro on board, happy with urine output -significantly improved edema on exam -lasix today -84 kg on admit, 116 peak, now 105kg -1450cc uop yesterday, +900 on balance Seizure d/o -on IV keppra, continue Hx of HTN -monitor Microcytic Anemia -received 3x blood transfusions so far. -Hgb trending up -[facility] noted hx of iron deficiency anemia -pRBC transfusion yesterday, hgb up Dispo: Day 10 on vent, Discussion with family about Trach/peg. CLARISSA FREDERICK DO 09/03/22 0517: Supervisory-Addendum Brief Verification & Attestation Participated in pt care: history, MDM, physical Personally performed: exam, history, MDM, supervision of care Care discussed with: Medical Student Procedures: n/a Results interpretation: Verified all documentation Verification and Attestation of Medical Student E/M Service A medical student performed and documented this service in my presence. I reviewed and verified all information documented by the medical student and made modifications to such information, when appropriate. I personally performed the physical exam and medical decision making. Clarissa Frederick Sep 03, 2022,05:17 KAYA SANCHES Sep 02, 2022 13:10 CLARISSA FREDERICK DO Sep 03, 2022 05:17
[2022-09-02] MEDS: DexMEDEtomidine 250 ML DRIP 250 ML IV SCH (15:00)
[2022-09-02 18:43] VITALS: BP 103/47
[2022-09-02] MEDS: PRAMIPEXOLE 0.125 MG (MIRAPEX) TABLET PO SCH (22:01)
[2022-09-02] MEDS: DONEPEZIL 10 MG (ARICEPT) TAB PO SCH (22:01)
[2022-09-02 22:28] VITALS: BP 123/67
[2022-09-03] MEDS: ACETAMINOPHEN 500 MG TAB (TYLENOL) PO SCH ×4 (00:01→22:06)
[2022-09-03] MEDS: inSUlin ASPART (NovoLOG) 1 UNIT/0.01 ML (CHARGE PER UNIT) SC SCH ×5 (00:14→17:43)
[2022-09-03] MEDS: PROPOFOL DRIP (ICU) 100 ML IV SCH ×3 (02:11→16:54)
[2022-09-03 02:38] VITALS: BP 126/59
[2022-09-03] MEDS: RT-ALBUTEROL/IPRATROPIUM 3 ML (DUONEB) VIAL INH SCH ×6 (02:38→22:58)
[2022-09-03] MEDS: MEROPENEM 500 MG/NS 100 ML IVPB IV SCH ×2 (03:34)
[2022-09-03] MEDS: DexMEDEtomidine 250 ML DRIP 250 ML IV SCH (03:34)
[2022-09-03 03:50] LABS: BASOPHILS # (AUTO) 0.1 10^3/uL (0.0-0.1); BASOPHILS % (AUTO) 1 % (0-10); EOSINOPHILS # (AUTO) 0.4 10^3/uL (0.0-0.3); EOSINOPHILS % (AUTO) 4 % (0-10); HEMATOCRIT 29 % (35-52); LYMPHOCYTES # (AUTO) 1.1 10^3/uL (1.0-4.0); LYMPHOCYTES % (AUTO) 11 % (12-44); MEAN CORPUSCULAR HEMOGLOBIN 25 pg (25-34); MEAN CORPUSCULAR HGB CONC 31 g/dL (32-36); MEAN CORPUSCULAR VOLUME 79 fL (80-99); MEAN PLATELET VOLUME 9.6 fL (9.0-12.2); MONOCYTES # (AUTO) 0.8 10^3/uL (0.0-1.0); MONOCYTES % (AUTO) 8 % (0-12); NEUTROPHILS # (AUTO) 7.8 10^3/uL (1.8-7.8); NEUTROPHILS % (AUTO) 76 % (42-75); PLATELET COUNT 604 10^3/uL (130-400); WHITE BLOOD COUNT 10.2 10^3/uL (4.3-11.0)
[2022-09-03 03:59] LABS: ALBUMIN 2.6 GM/DL (3.2-4.5); POTASSIUM 4.5 MMOL/L (3.6-5.0)
[2022-09-03 04:00] LABS: CALCIUM 8.5 MG/DL (8.5-10.1)
[2022-09-03] MEDS: KCL 20 MEQ TAB (K-DUR) PO SCH (04:01)
[2022-09-03] MEDS: POTASSIUM CL 10MEQ/50ML IVPB 50 ML IV SCH (04:01)
[2022-09-03 04:02] LABS: TOTAL PROTEIN 5.2 GM/DL (6.4-8.2)
[2022-09-03] MEDS: MAGNESIUM 1 GM/100 ML IVPB 100 ML IV SCH (04:02)
[2022-09-03 04:03] LABS: BILIRUBIN,TOTAL 0.5 MG/DL (0.1-1.0)
[2022-09-03 04:05] LABS: CREATININE SERUM 0.81 MG/DL (0.60-1.30); PHOSPHORUS 2.9 MG/DL (2.3-4.7)
[2022-09-03 04:07] LABS: BILIRUBIN,DIRECT 0.4 MG/DL (0.0-0.3); BILIRUBIN,INDIRECT 0.1 MG/DL
[2022-09-03 04:08] LABS: MAGNESIUM 2.1 MG/DL (1.6-2.4)
[2022-09-03 05:39] LABS: ABG BASE EXCESS 0.3 MMOL/L (-2.5-2.5); ABG OXYGEN SATURATION 98 % (94-100); ABG PCO2 36 MMHG (35-45); ABG PH 7.44 (7.37-7.43); ABG PO2 78 MMHG (79-93); ABG TCO2 25.2 MMOL/L (21.0-31.0)
[2022-09-03 05:40] LABS: ALLENS TEST YES-POS; INSPIRED O2 25%; PATIENT TEMP 36.5; VENTILATOR YES
[2022-09-03 07:28] VITALS: BP 126/59
[2022-09-03] MEDS: NOREPINEPHRINE 8 MG/250 ML 250 ML IV SCH (08:08)
[2022-09-03] MEDS: lisINopril 20 MG (PRINIVIL) TABLET PO SCH (08:09)
[2022-09-03] MEDS: risperiDONE 0.5 MG (RisperDAL) TABLET PO SCH ×2 (08:09→20:08)
[2022-09-03] MEDS: VITAMIN D3 25 MCG (1,000 UNITS) TABLET PO SCH (08:09)
[2022-09-03] MEDS: OXYBUTYNIN (DITROPAN) 5 MG TAB PO SCH ×2 (08:09→20:08)
[2022-09-03] MEDS: ENOXAPARIN 40 MG/0.4 ML (LOVENOX) SYR SC SCH (08:09)
[2022-09-03] MEDS: levETIRAcetam 1000 mg/NS 100ml IVPB IV SCH ×2 (08:09→20:02)
[2022-09-03] MEDS: PANTOPRAZOLE 40 MG (PROTONIX) VIAL IVP SCH (08:09)
--- NOTE | 2022-09-03 08:35 | Tele-ICU Progress Note ---
Subjective Date Seen by a Provider: Sep 03, 2022 Subjective/Events-last exam Tele-ICU Physician , consultation) Available chart/ vitals / labs / Images reviewed H&P is from ER notes Patient's information available about PMH, allergy reviewed in EMR. ROS as per chart and RN report Video assessment done using teleICU camera, rest of exam as per RN Discussed with RN. She is a 76-year-old female who is morbidly obese apparently found to have adenocarcinoma of the ascending colon for which she underwent right hemicolectomy on 08/18/2022 and postoperatively she was recuperating and surgical floor and today she developed a respiratory distress hypoxia, hypotension. Her lactic acid is elevated. Also her urine output is decreased. She has signs and symptoms of sepsis hence she is transferred to the intensive care unit and started on IV Levophed. She is also placed on a BiPAP ventilation. Her abdomen is markedly distended and tender suspicious for some acute process. Hence she is being taken to operating room for diagnostic laparoscopy and further evaluation. It is expected that she would come back on mechanical ventilation. 08/27/22 she remained on vent. she failed SBT on 08/27/22. today she is off sedati on, no pressors. on vent rr/21%/450/5. 09/02/22 she is still remained on the vent. reportedly failed sbt's before. currently she is off the pressors but has mod. dose of precedex on board. resting comfortably. wbc count jumped to 16.5 she still has ruth drain and wound vac. 09/03/22. today her wbc count went down. ct of abd.&pelvic done, report still pending. but I have reviewed my self. in the chest she has flores. small to mod. pleural effusions present but no significant infiltrates seen. In the abdomen I noticed only surgical changes. at this we have tried on sbt with ps 10 and abg done after 80 minutes showed adequate gas exchange. I have discussed with her Daughter who is at bed side and explained that she has boarderline parameters to extubate and there some possibility that she might fail again requiring to reintubate. she is agreable to take that risk. Then she is extubated and put on 4l n/c. she tolerating well. no distress. she is able to coverse with her dtr and grand son. before and after extubation i have video watched her for more than 1 hr. I was in contact with her dtr and agricultural engineer frequently. Impression 1. Acute hypoxic respiratory failure secondary to possible underlying sepsis, pneumonia and clinically improved and extubated on 09/03/22. 2. Hypotension secondary to possible sepsis improved 3. Lactic acidosis secondary to sepsis resolved 4. 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, had anastomotic leak requiring resection of colon again 5. Leucocytosis improved. 6. Sunitha operative anemia stable. Recommendations 1. she is extubated this evening ie 09/03/22. tolerating well with 4l n/c 2. continue antibiotics and continue fluconazole. 3. DVT prophylaxis and ulcer prophylaxis 4. repeat ct abd,pelvis chest done final report pending 5. PT &OT Coordination of care with bedside consultants and primary care physician critical care time spent today approximately 60 minutes Review of Systems ros per rn Sepsis Event Evaluation Height, Weight, BMI Height: 5'4.00" Weight: 193lbs. 3.0oz. 87.765144zg; 39.95 BMI Method: Exam Exam Patient acknowledged, consented, and participated in this virtual visit which was conducted using real time audio/video Vital Signs Date Time Temp Pulse Resp B/P (MAP) Pulse Ox O2 Delivery O2 Flow Rate FiO2 09/03/22 08:21 100 Mechanical Ventilator 25 09/03/22 08:08 86 136/63 09/03/22 08:00 86 20 136/63 (87) 100 Mechanical Ventilator 25.00 09/03/22 07:28 86 17 100 25 09/03/22 07:00 81 21 135/66 (89) 100 Mechanical Ventilator 25.00 09/03/22 07:00 82 09/03/22 06:00 99 17 143/73 (96) 100 Mechanical Ventilator 25.00 09/03/22 05:00 85 17 143/73 (96) 100 Mechanical Ventilator 25.00 09/03/22 04:00 97 Mechanical Ventilator 25 09/03/22 04:00 36.2 09/03/22 04:00 93 16 132/64 (86) 100 Mechanical Ventilator 25.00 09/03/22 03:34 89 126/59 09/03/22 03:00 96 20 121/56 (77) 99 Mechanical Ventilator 25.00 09/03/22 02:38 89 17 98 25 09/03/22 02:00 94 18 127/61 (83) 96 Mechanical Ventilator 25.00 09/03/22 01:00 89 17 130/64 (86) 97 Mechanical Ventilator 25.00 09/03/22 01:00 90 09/03/22 00:00 98 37 136/69 (91) 93 Mechanical Ventilator 25.00 09/03/22 00:00 37.0 09/02/22 23:59 96 Mechanical Ventilator 25 09/02/22 23:00 91 16 133/66 (88) 97 Mechanical Ventilator 25.00 09/02/22 22:30 90 126/79 09/02/22 22:28 88 17 97 25 09/02/22 22:00 84 16 122/62 (82) 96 Mechanical Ventilator 25.00 09/02/22 21:00 88 18 124/58 (80) 95 Mechanical Ventilator 25.00 09/02/22 20:48 90 112/52 09/02/22 20:05 89 100/46 09/02/22 20:01 37.4 09/02/22 20:00 97 Mechanical Ventilator 25 09/02/22 19:45 90 104/49 09/02/22 19:42 36.1 90 17 102/48 (66) 99 Mechanical Ventilator 25.00 09/02/22 19:30 90 102/48 09/02/22 19:00 91 09/02/22 19:00 92 19 104/49 (67) 98 Mechanical Ventilator 25.00 09/02/22 19:00 93 103/47 09/02/22 18:43 93 21 98 25 09/02/22 18:00 86 30 108/48 (68) 99 Mechanical Ventilator 25.00 09/02/22 17:50 38.0 09/02/22 17:00 90 27 108/53 (71) 97 Mechanical Ventilator 25.00 09/02/22 16:38 96 Mechanical Ventilator 25 09/02/22 16:00 89 27 117/52 (73) 97 Mechanical Ventilator 25.00 09/02/22 15:27 37.3 09/02/22 15:00 89 112/53 09/02/22 15:00 89 31 119/57 (77) 98 Mechanical Ventilator 25.00 09/02/22 14:00 90 22 115/68 (84) 99 Mechanical Ventilator 25.00 09/02/22 13:30 37.2 09/02/22 13:00 80 20 120/63 (82) 100 Mechanical Ventilator 25.00 09/02/22 12:53 80 09/02/22 12:00 100 21 105/56 (72) 94 Mechanical Ventilator 25.00 09/02/22 12:00 98 Mechanical Ventilator 25 09/02/22 11:00 98 18 124/63 (83) 97 Mechanical Ventilator 25.00 09/02/22 10:45 Mechanical Ventilator 25.00 09/02/22 10:00 102 16 105/52 (69) 98 Mechanical Ventilator 30.00 09/02/22 09:00 103 20 112/55 (74) 99 Mechanical Ventilator 30.00 I & O 09/03/22 07:00 Intake Total 3080 ml Output Total 2415 ml Balance 665 ml Height & Weight Height: 5'4.00" Weight: 193lbs. 3.0oz. 87.633736zo; 39.95 BMI Method: General Appearance: No Apparent Distress, Obese HEENT: PERRL/EOMI, Moist Mucous Membranes; No Scleral Icterus (L), No Scleral Icterus (R) Neck: Normal Inspection, Non Tender, Supple; No JVD Respiratory: Lungs Clear, Normal Breath Sounds, Other (breath sounds heard in all lung lazo. on ventilator at FiO2 30) Cardiovascular: Regular Rate, Rhythm, No JVD, No Murmur, Normal Peripheral Pulses Capillary Refill: Less Than 3 Seconds Gastrointestinal: normal bowel sounds, soft, tenderness (diffusely), other (right RUTH bag draining fluid that is darker, but looking more serosanguinous now. Midline incision looks good from picture Wound care team took. Lots of fecal material in bag) Extremity: Normal Capillary Refill, Normal Inspection, Non Tender, No Calf Tenderness, Pedal Edema Neurologic/Psychiatric: Alert (oriented x2), bleach maker II-XII Norm as Tested, Other (moves limbs spontaneously) Skin: Normal Color, Warm/Dry; No Jaundice Lymphatic: No Adenopathy Other comments PE PER RN Results Lab Laboratory Tests 09/02/22 03:14 09/03/22 03:30 Assessment/Plan Assessment/Plan ABOVE Critical Care: Critically Ill Patient Time spent with patient (mins): 60 ALEK MINOR MD Sep 03, 2022 08:35
[2022-09-03] MEDS: MICONAZOLE 2% POWDER (DESENEX AF) 90 GM TOP SCH ×2 (08:36→20:11)
[2022-09-03] MEDS: FLUCONAZOLE 100 MG/50 ML 50 ML IV SCH (09:00)
--- NOTE | 2022-09-03 09:40 | Progress Note - Hospitalist ---
KAYA SANCHES 09/03/22 0940: Subjective HPI/CC On Admission Date Seen by Provider: Sep 03, 2022 Time Seen by Provider: 10:45 Roseann had a very reassuring SBT yesterday. She lasted 2 hours with SBT. No overnight events, off pressors, on precedex currently for planned ct. Granddaughter reports that she and her sister spoke with Roseann yesterday and affirmed that Roseann herself does not want to do Trach/peg. 2.4L out yesterday after lasix dose, though +565cc on balance. Review of Systems General: No Chills HEENT: No Head Aches Cardiovascular: No: Chest Pain Gastrointestinal: No: Abdominal Pain Objective Exam Vital Signs Vital Signs Date Time Temp Pulse Resp B/P (MAP) Pulse Ox O2 Delivery O2 Flow Rate FiO2 09/03/22 11:13 73 16 100 25 09/03/22 11:00 133/76 (95) Mechanical Ventilator 25.00 09/03/22 04:00 36.2 Capillary Refill : Less Than 3 Seconds General Appearance: No Apparent Distress HEENT: PERRL/EOMI, Moist Mucous Membranes; No Scleral Icterus (L), No Scleral Icterus (R) Neck: Normal Inspection, Non Tender, Supple; No JVD Respiratory: Lungs Clear, Normal Breath Sounds Cardiovascular: Regular Rate, Rhythm, No Gallop, No JVD, No Murmur, Normal Peripheral Pulses Gastrointestinal: Normal Bowel Sounds, Soft; No Distended Extremity: Normal Capillary Refill, Normal Inspection, Pedal Edema Neurologic/Psychiatric: Alert, Oriented x3 Skin: Normal Color, Warm/Dry Results/Procedures Lab Laboratory Tests 09/03/22 03:30 Patient resulted labs reviewed. 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 -08/23 anastomotic leak noted -drain placed by surgery, monitoring -wound vac and drain in place -ct abd pelvis lungs pending results Septic shock AHRF Pneumonia -NorE, vaso paused, MAPs in 70s-90s over 24 hours -propofol paused since yesterday -cxr reviewed -blood cx grew nml skin edward x1 -sputum culture obtained from ET tube grew p aeru, on meropenem -awaiting susceptibility -SBT trials per icu team -cxr 09/01 without change from prior -wbc count up, fluconazole added per icu team, down today RA Fluid Overload -Rise to >3 creatinine, trending down -30kg weight gain since 08/18 -very edematous on exam, improved today -having adequate urine output -nephro on board, happy with urine output -significantly improved edema on exam -lasix today -84 kg on admit, 116 peak, now 105kg -3L in, 2.4L out, 565 up on balance -continue diuresis Seizure d/o -on IV keppra, continue Hx of HTN -monitor Microcytic Anemia -received 4x blood transfusions so far. -Hgb trending up -[facility] noted hx of iron deficiency anemia -hgb trending up Dispo: Day 11 on vent, Discussion with family about Trach/peg. Continue diuresis, continue SBTs. CLARISSA FREDERICK DO 09/04/22 0611: Supervisory-Addendum Brief Verification & Attestation Participated in pt care: history, MDM, physical Personally performed: exam, history, MDM, supervision of care Care discussed with: Medical Student Procedures: n/a Results interpretation: Verified all documentation Verification and Attestation of Medical Student E/M Service A medical student performed and documented this service in my presence. I reviewed and verified all information documented by the medical student and made modifications to such information, when appropriate. I personally performed the physical exam and medical decision making. Clarissa Frederick Sep 04, 2022,06:11 KAYA SANCHES Sep 03, 2022 09:40 CLARISSA FREDERICK DO Sep 04, 2022 06:11
--- NOTE | 2022-09-03 09:40 | Progress Note - Surgery ---
MANUEL SUN 09/03/22 0940: Subjective Date Seen by a Provider: Sep 03, 2022 Time Seen by a Provider: 09:00 Subjective/Events-last exam Pt on vent and unresponsive this morning with family at bedside. Per nurse, pt tolerated SBT yesterday for 90 minutes, plans to CT and try again this morning. Central line was removed yesterday evening and wound vac was changed w/o no issues. Pt continues to to produce urine and stool, 275ml and 300ml respectively. RICCARDO bag continues to have dark red/brown serosanguenous drainage of approx. 10ml, down from 20ml yesterday. Pt did not require pressers overnight. Continued nutrition through feeding tube, tolerated well. Review of Systems Unable to gather information due to pt being unresponsive. Objective Exam Vital Signs Date Time Temp Pulse Resp B/P (MAP) Pulse Ox O2 Delivery O2 Flow Rate FiO2 09/03/22 09:00 86 23 138/67 (90) 100 Mechanical Ventilator 25.00 09/03/22 08:21 100 Mechanical Ventilator 25 09/03/22 08:08 86 136/63 09/03/22 08:00 86 20 136/63 (87) 100 Mechanical Ventilator 25.00 09/03/22 07:28 86 17 100 25 09/03/22 07:00 81 21 135/66 (89) 100 Mechanical Ventilator 25.00 09/03/22 07:00 82 09/03/22 06:00 99 17 143/73 (96) 100 Mechanical Ventilator 25.00 09/03/22 05:00 85 17 143/73 (96) 100 Mechanical Ventilator 25.00 09/03/22 04:00 97 Mechanical Ventilator 25 09/03/22 04:00 36.2 09/03/22 04:00 93 16 132/64 (86) 100 Mechanical Ventilator 25.00 09/03/22 03:34 89 126/59 09/03/22 03:00 96 20 121/56 (77) 99 Mechanical Ventilator 25.00 09/03/22 02:38 89 17 98 25 09/03/22 02:00 94 18 127/61 (83) 96 Mechanical Ventilator 25.00 09/03/22 01:00 89 17 130/64 (86) 97 Mechanical Ventilator 25.00 09/03/22 01:00 90 09/03/22 00:00 98 37 136/69 (91) 93 Mechanical Ventilator 25.00 09/03/22 00:00 37.0 09/02/22 23:59 96 Mechanical Ventilator 25 09/02/22 23:00 91 16 133/66 (88) 97 Mechanical Ventilator 25.00 09/02/22 22:30 90 126/79 09/02/22 22:28 88 17 97 25 09/02/22 22:00 84 16 122/62 (82) 96 Mechanical Ventilator 25.00 09/02/22 21:00 88 18 124/58 (80) 95 Mechanical Ventilator 25.00 09/02/22 20:48 90 112/52 09/02/22 20:05 89 100/46 09/02/22 20:01 37.4 09/02/22 20:00 97 Mechanical Ventilator 25 09/02/22 19:45 90 104/49 09/02/22 19:42 36.1 90 17 102/48 (66) 99 Mechanical Ventilator 25.00 09/02/22 19:30 90 102/48 09/02/22 19:00 91 09/02/22 19:00 92 19 104/49 (67) 98 Mechanical Ventilator 25.00 09/02/22 19:00 93 103/47 09/02/22 18:43 93 21 98 25 09/02/22 18:00 86 30 108/48 (68) 99 Mechanical Ventilator 25.00 09/02/22 17:50 38.0 09/02/22 17:00 90 27 108/53 (71) 97 Mechanical Ventilator 25.00 09/02/22 16:38 96 Mechanical Ventilator 25 09/02/22 16:00 89 27 117/52 (73) 97 Mechanical Ventilator 25.00 09/02/22 15:27 37.3 09/02/22 15:00 89 112/53 09/02/22 15:00 89 31 119/57 (77) 98 Mechanical Ventilator 25.00 09/02/22 14:00 90 22 115/68 (84) 99 Mechanical Ventilator 25.00 09/02/22 13:30 37.2 09/02/22 13:00 80 20 120/63 (82) 100 Mechanical Ventilator 25.00 09/02/22 12:53 80 09/02/22 12:00 100 21 105/56 (72) 94 Mechanical Ventilator 25.00 09/02/22 12:00 98 Mechanical Ventilator 25 09/02/22 11:00 98 18 124/63 (83) 97 Mechanical Ventilator 25.00 09/02/22 10:45 Mechanical Ventilator 25.00 09/02/22 10:00 102 16 105/52 (69) 98 Mechanical Ventilator 30.00 I & O 09/03/22 07:00 Intake Total 3080 ml Output Total 2415 ml Balance 665 ml Capillary Refill : Less Than 3 Seconds General Appearance: No Apparent Distress, Chronically ill, Obese HEENT: Moist Mucous Membranes; No Scleral Icterus (L), No Scleral Icterus (R) Neck: Normal Inspection, Non Tender, Supple, Other (Dressing over left cervial region where central line was placed, no drainage or surrounding errythema ) Respiratory: Lungs Clear, Normal Breath Sounds, Other (breath sounds heard in all lung lazo. on ventilator at FiO2 25) Cardiovascular: Regular Rate, Rhythm, No JVD, No Murmur, Normal Peripheral Pulses Gastrointestinal: normal bowel sounds, soft, other (right RICCARDO bag draining fluid that is dark brown/red,similar to yesterday. Midline incision covered by dressing, no surrounding errythema. 300ml of fecal material in bag) Extremity: Normal Capillary Refill, Normal Inspection, Pedal Edema (2+) Neurologic/Psychiatric: No Alert, No Oriented x3; Other (unresponsive ) Skin: Normal Color, Warm/Dry; No Jaundice Results Lab Laboratory Tests 09/02/22 13:04: Glucometer 100 09/02/22 17:02: Glucometer 109 09/02/22 20:28: Glucometer 98 09/03/22 00:14: Glucometer 98 09/03/22 03:30: White Blood Count 10.2, Red Blood Count 3.64L, Hemoglobin 9.0L, Hematocrit 29L, Mean Corpuscular Volume 79L, Mean Corpuscular Hemoglobin 25, Mean Corpuscular Hemoglobin Concent 31L, Red Cell Distribution Width 25.6H, Platelet Count 604H, Mean Platelet Volume 9.6, Immature Granulocyte % (Auto) 1, Neutrophils (%) (Auto) 76H, Lymphocytes (%) (Auto) 11L, Monocytes (%) (Auto) 8, Eosinophils (%) (Auto) 4, Basophils (%) (Auto) 1, Neutrophils # (Auto) 7.8, Lymphocytes # (Auto) 1.1, Monocytes # (Auto) 0.8, Eosinophils # (Auto) 0.4H, Basophils # (Auto) 0.1, Immature Granulocyte # (Auto) 0.1, Sodium Level 144, Potassium Level 4.5, Chloride Level 114H, Carbon Dioxide Level 22, Anion Gap 8, Blood Urea Nitrogen 36H, Creatinine 0.81, Estimat Glomerular Filtration Rate 75, BUN/Creatinine Ratio 44, Glucose Level 114H, Calcium Level 8.5, Corrected Calcium 9.6, Phosphorus Level 2.9, Magnesium Level 2.1, Total Bilirubin 0.5, Direct Bilirubin 0.4H, Indirect Bilirubin 0.1, Aspartate Amino Transf (AST/SGOT) 20, Alanine Aminotransferase (ALT/SGPT) 16, Alkaline Phosphatase 41, Total Protein 5.2L, Albumin 2.6L 09/03/22 05:20: Blood Gas Puncture Site LEFT RADIAL, Blood Gas Patient Temperature 36.5, Arterial Blood pH 7.44H, Arterial Blood Partial Pressure CO2 36, Arterial Blood Partial Pressure O2 78L, Arterial Blood HCO3 24, Arterial Blood Total CO2 25.2, Arterial Blood Oxygen Saturation 98, Arterial Blood Base Excess 0.3, Aiden Test YES-POS, Blood Gas Ventilator Setting YES, Blood Gas Inspired Oxygen 25% Microbiology 09/02/22 Gram Stain - Final, Resulted 09/02/22 Wound Culture, Resulted Pending 08/23/22 Gram Stain - Final, Complete 08/23/22 Sputum Culture - Final, Complete Pseudomonas aeruginosa Mixed Bacterial Maida 08/22/22 Blood Culture - Final, Complete Streptococcus mitis group See Comments 08/22/22 Urine Culture - Final, Complete NO GROWTH Assessment/Plan Assessment/Plan Assessment/Plan Anemia - stable Hypotension - resolved and off pressors S/P Laparoscopic hand assisted right hemicolectomy (08/18) S/P Diagnostic lap with abd washout and colon resection and re-anastamosis (08/23) Leukocytosis - resolved today. Down from 16.3 to 10.2 Thrombocythemia - platelets 604 today Finished Meropenem today, continue fluconazole therapy, continue pain medication, continue IVF, continue lasix therapy for LE edema continue tube feeds and PO medication as tolerated via tube continue to monitor Hgb, 9 today Per family, pt confirmed that she does not want a trach placed if needed. wound culture from midline incision pending CT and SBT scheduled for this morning KOURTNEY ARAGON DO 09/03/22 1453: Subjective Time Seen by a Provider: 14:46 Subjective/Events-last exam Pt seen and examined, on vent but getting SBT (doing well for past hour and a half). She is alert Objective Exam General Appearance: No Apparent Distress, Chronically ill, Obese HEENT: No Scleral Icterus (L), No Scleral Icterus (R) Neck: Other (Dressing over left cervial region where central line was placed, no drainage or surrounding errythema ) Respiratory: Lungs Clear, Normal Breath Sounds, Other (breath sounds heard in all lung lazo. on ventilator at FiO2 25) Cardiovascular: Regular Rate, Rhythm, No Murmur Gastrointestinal: normal bowel sounds, soft, other (right RICCARDO bag draining fluid that is dark brown/red,similar to yesterday. Midline incision covered by dressing, no surrounding errythema. 300ml of fecal material in bag) Extremity: Pedal Edema (2+, not worse than it has been) Neurologic/Psychiatric: No Alert, No Oriented x3; Other (unresponsive ) Skin: Normal Color, Warm/Dry Assessment/Plan Assessment/Plan Assessment/Plan Anemia - stable Hypotension - resolved and off pressors S/P Laparoscopic hand assisted right hemicolectomy (08/18) S/P Diagnostic lap with abd washout and colon resection and re-anastamosis (08/23) Leukocytosis - resolved today. Down from 16.3 to 10.2 Thrombocythemia - platelets 604 today Finished Meropenem today, continue fluconazole therapy, continue pain medication, continue IVF, continue lasix therapy for LE edema continue tube feeds and PO medication as tolerated via tube continue to monitor Hgb, 9 today Per family, pt confirmed that she does not want a trach placed if needed. wound culture from midline incision pending CT and SBT scheduled for this morning Supervisory-Addendum Brief Verification & Attestation Participated in pt care: history Personally performed: exam, history, MDM, supervision of care Care discussed with: Medical Student Procedures: n/a Verification and Attestation of Medical Student E/M Service A medical student performed and documented this service. I then reviewed and verified all information documented by the medical student and made modifications to such information, when appropriate. I personally performed a physical exam, medical decision making and then discussed any differences between the notes and made revisions as necessary to create one note. Kourtney Aragon 09/03/22 , 14:53 MANUEL SUN Sep 03, 2022 09:40 KOURTNEY ARAGON DO Sep 03, 2022 14:53
--- NOTE | 2022-09-03 09:41 | Cardiology Progress Note ---
Subjective Date Seen by Provider: Sep 03, 2022 Time Seen by Provider: 09:40 Subjective/Events-last exam Patient is ventilator dependent Review of Systems General: Other (Unable to provide review of system) Objective-Cardiology Exam Last Set of Vital Signs Vital Signs 09/03/22 09/03/22 09/03/22 04:00 08:21 09:00 Temp 36.2 Pulse 86 Resp 23 B/P (MAP) 138/67 (90) Pulse Ox 100 O2 Delivery Mechanical Ventilator O2 Flow Rate 25.00 FiO2 25 I&O Intake and Output 09/03/22 00:00 Intake Total 2910 ml Output Total 2820 ml Balance 90 ml IV Total 850 ml Tube Feeding 1200 ml Enteral Flush 200 ml Other 660 ml Output Urine Total 2275 ml Stool Total 525 ml Drainage Total 20 ml General: Alert, Cooperative, Other (intubated) Lungs: Normal Air Movement, Other Heart: Normal S1, Normal S2, Other (tachycardic) Abdomen: Normal Bowel Sounds, Soft Extremities: Other (2+ pitting edema) Skin: No Rashes, No Significant Lesion Neuro: Other (Intubated, following commands) Psych/Mental Status: Other (Intubated) Results Lab Laboratory Tests 09/03/22 03:30 A/P-Cardiology Admission Diagnosis Septic shock Hypotension Adenocardinoma Assessment/Plan Adenocarinoma of ascending colon, s/p partial colon and intraperitoneal mass resection Status post acute abdomen on August 23, 2022 underwent exploratory laparotomy, anastomosis leak was noted Currently having a drain, managed by surgical team Septic shock, hypotensive, tachycardic, respiratory failure Currently blood pressure and heart rate are better Currently off pressors Responded to Lasix Ventilator dependent respiratory failure, Failed multiple attempt for weaning, possible trach Had slightly better response yesterday, possible another trial today. Sinus tachycardia secondary to sepsis Heart rate is better, had transient episode of tachycardia probably during weaning. History of hypertension, continue to monitor Nonobstructive carotid artery stenosis per carotid duplex done Jul 2022. NORMA DIAMOND MD Sep 03, 2022 09:41
[2022-09-03 11:13] VITALS: BP 133/76
[2022-09-03] MEDS ORDERED: FUROSEMIDE 40 MG/4 ML INJ (LASIX) IVP NR ×2 (11:30→11:45)
[2022-09-03] MEDS: morphine INJ 4 MG/ML 1 ML (VIAL/SYRINGE) IVP PRN ×3 (13:31→21:43)
[2022-09-03 14:25] VITALS: BP 133/76
[2022-09-03 14:38] LABS: ABG BASE EXCESS 0.7 MMOL/L (-2.5-2.5); ABG OXYGEN SATURATION 95 % (94-100); ABG PCO2 36 MMHG (35-45); ABG PH 7.44 (7.37-7.43); ABG PO2 65 MMHG (79-93); ABG TCO2 25.5 MMOL/L (21.0-31.0)
[2022-09-03 14:39] LABS: ALLENS TEST YES-POS; INSPIRED O2 25%; PATIENT TEMP 36.9; VENTILATOR YES
--- NOTE | 2022-09-03 15:48 | Diagnostic Imaging Report ---
PROCEDURE: CT chest, abdomen, and pelvis without contrast. TECHNIQUE: Multiple contiguous axial images were obtained through the chest, abdomen, and pelvis without the use of intravenous contrast. Auto Exposure Controls were utilized during the CT exam to meet ALARA standards for radiation dose reduction. INDICATION: Pneumonia, anterior abdominal abscess. COMPARISON: CT chest of 08/22/[address] abdomen and pelvis of 08/22/2022. FINDINGS: CT CHEST: ET tube terminates in the upper trachea. Small bilateral pleural effusions have increased. The consolidation is associated with no pneumothorax. Enteric tube courses through the esophagus and into the stomach. The heart is enlarged without pericardial effusion. No mediastinal lymphadenopathy. No supraclavicular or axillary lymphadenopathy. No worrisome focal osseous lesion. CT ABDOMEN AND PELVIS: No free intraperitoneal air. A 4.4 x 5.3 cm fluid collection is present in the pelvis located cranial to the urinary bladder. There is a small amount of fluid but persistent in the right upper quadrant which may be partially loculated. Small amount of perisplenic fluid remains nonloculated. Unenhanced liver is grossly normal. No adrenal mass. No renal mass or obstructive uropathy. Urinary bladder is decompressed by a Phillips catheter. No bowel obstruction or pericolonic inflammatory change. The stomach is distended with fluid and air. No worrisome focal osseous lesion. IMPRESSION: 1. Small bilateral pleural effusions have increased in size. 2. The airspace consolidations adjacent to the effusions are most likely due to relaxation atelectasis. However, in the appropriate setting, pneumonia could be present. 3. The free fluid within the abdomen has diminished since the prior examination. There is now a small pocket loculated within the pelvis above the urinary bladder. The indwelling drain does not communicate with this region. Dictated by: Dictated on workstation # [id number]
[2022-09-03] MEDS: DONEPEZIL 10 MG (ARICEPT) TAB PO SCH (20:08)
[2022-09-03] MEDS: PRAMIPEXOLE 0.125 MG (MIRAPEX) TABLET PO SCH (20:08)
[2022-09-04] MEDS: NOREPINEPHRINE 8 MG/250 ML 250 ML IV SCH ×2 (00:04→15:19)
[2022-09-04] MEDS: PROPOFOL DRIP (ICU) 100 ML IV SCH ×4 (00:04→22:47)
[2022-09-04] MEDS: inSUlin ASPART (NovoLOG) 1 UNIT/0.01 ML (CHARGE PER UNIT) SC SCH ×4 (00:04→19:26)
[2022-09-04] MEDS: RT-ALBUTEROL/IPRATROPIUM 3 ML (DUONEB) VIAL INH SCH ×6 (02:28→22:35)
[2022-09-04 04:21] LABS: BASOPHILS # (AUTO) 0.1 10^3/uL (0.0-0.1); BASOPHILS % (AUTO) 1 % (0-10); EOSINOPHILS # (AUTO) 0.3 10^3/uL (0.0-0.3); EOSINOPHILS % (AUTO) 3 % (0-10); HEMATOCRIT 29 % (35-52); LYMPHOCYTES % (AUTO) 11 % (12-44); MEAN CORPUSCULAR HEMOGLOBIN 25 pg (25-34); MEAN CORPUSCULAR HGB CONC 31 g/dL (32-36); MEAN CORPUSCULAR VOLUME 80 fL (80-99); MEAN PLATELET VOLUME 9.4 fL (9.0-12.2); MONOCYTES % (AUTO) 11 % (0-12); NEUTROPHILS # (AUTO) 6.8 10^3/uL (1.8-7.8); NEUTROPHILS % (AUTO) 75 % (42-75); PLATELET COUNT 626 10^3/uL (130-400); WHITE BLOOD COUNT 9.1 10^3/uL (4.3-11.0)
[2022-09-04] MEDS: KCL 20 MEQ TAB (K-DUR) PO SCH (04:21)
[2022-09-04 04:32] LABS: ALBUMIN 2.5 GM/DL (3.2-4.5); POTASSIUM 3.9 MMOL/L (3.6-5.0)
[2022-09-04 04:33] LABS: CALCIUM 8.4 MG/DL (8.5-10.1)
[2022-09-04 04:34] LABS: TOTAL PROTEIN 5.1 GM/DL (6.4-8.2)
[2022-09-04 04:36] LABS: BILIRUBIN,TOTAL 0.5 MG/DL (0.1-1.0)
[2022-09-04 04:38] LABS: CREATININE SERUM 0.7 MG/DL (0.60-1.30); PHOSPHORUS 3.2 MG/DL (2.3-4.7)
[2022-09-04 04:40] LABS: BILIRUBIN,DIRECT 0.4 MG/DL (0.0-0.3); BILIRUBIN,INDIRECT 0.1 MG/DL
[2022-09-04] MEDS: MAGNESIUM 1 GM/100 ML IVPB 100 ML IV SCH (04:43)
[2022-09-04] MEDS: morphine INJ 4 MG/ML 1 ML (VIAL/SYRINGE) IVP PRN ×5 (04:47→20:43)
[2022-09-04] MEDS: POTASSIUM CL 10MEQ/50ML IVPB 50 ML IV SCH ×3 (04:48→05:37)
[2022-09-04] MEDS: ACETAMINOPHEN 500 MG TAB (TYLENOL) PO SCH ×3 (06:18→20:28)
[2022-09-04] MEDS: FLUCONAZOLE 100 MG/50 ML 50 ML IV SCH (08:17)
[2022-09-04] MEDS: MICONAZOLE 2% POWDER (DESENEX AF) 90 GM TOP SCH ×2 (08:18→20:22)
[2022-09-04] MEDS: ENOXAPARIN 40 MG/0.4 ML (LOVENOX) SYR SC SCH (08:18)
[2022-09-04] MEDS: levETIRAcetam 1000 mg/NS 100ml IVPB IV SCH ×2 (08:18→20:22)
[2022-09-04] MEDS: PANTOPRAZOLE 40 MG (PROTONIX) VIAL IVP SCH (08:18)
--- NOTE | 2022-09-04 08:32 | Progress Note - Surgery ---
DARRON HIGGINS 09/04/22 0832: Subjective Date Seen by a Provider: Sep 04, 2022 Time Seen by a Provider: 07:50 Subjective/Events-last exam Patient extubated and on 4.00 L of supplemental oxygen by nasal canula since 3:00 pm yesterday. She is alert but unable to answer questions verbally on exam; she continues to shake her head yes when asked about abdominal pain. 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 RICCARDO bag continues to drain dark red/brown serosanguinous fluid, approximately 17.5 mL overnight. Per nursing, overnight urine output was approximately 675 mL and stool output was approximately 800 mL. She has not required pressors since 09/02. Review of Systems Gastrointestinal: Abdominal Pain Objective Exam Vital Signs Date Time Temp Pulse Resp B/P (MAP) Pulse Ox O2 Delivery O2 Flow Rate FiO2 09/04/22 08:15 100 High Flow N/C 3.00 09/04/22 08:00 103 23 124/58 (83) 93 High Flow N/C 4.00 09/04/22 07:22 100 Nasal Cannula 3.00 09/04/22 07:00 109 25 126/62 (83) 100 High Flow N/C 4.00 09/04/22 07:00 109 09/04/22 06:00 110 24 129/60 (83) 100 High Flow N/C 4.00 09/04/22 05:00 120 149/76 (100) 100 High Flow N/C 4.00 09/04/22 04:00 36.7 09/04/22 04:00 97 High Flow N/C 5.00 09/04/22 04:00 113 27 122/57 (78) 100 High Flow N/C 4.00 09/04/22 03:00 114 19 125/56 (79) 100 High Flow N/C 4.00 09/04/22 02:28 100 Nasal Cannula 4.00 09/04/22 02:00 112 21 130/63 (85) 100 High Flow N/C 4.00 09/04/22 01:00 114 24 124/56 (78) 100 High Flow N/C 4.00 09/04/22 01:00 116 09/04/22 00:00 124 21 144/64 (90) 97 High Flow N/C 4.00 09/04/22 00:00 36.6 09/03/22 23:59 97 High Flow N/C 5.00 09/03/22 23:00 108 28 126/61 (82) 100 High Flow N/C 4.00 09/03/22 22:58 100 Nasal Cannula 5.00 09/03/22 22:00 116 31 126/59 (81) 100 High Flow N/C 4.00 09/03/22 21:00 112 27 132/62 (85) 100 High Flow N/C 4.00 09/03/22 20:00 118 37 146/63 (90) 99 High Flow N/C 4.00 09/03/22 20:00 97 High Flow N/C 5.00 09/03/22 19:34 37.5 09/03/22 19:26 37.5 09/03/22 19:00 122 36 141/73 (95) 95 High Flow N/C 4.00 09/03/22 19:00 120 09/03/22 18:49 100 Nasal Cannula 4.00 09/03/22 18:00 108 45 132/58 (82) 95 High Flow N/C 4.00 09/03/22 17:00 109 36 125/63 (83) 100 High Flow N/C 4.00 09/03/22 16:00 High Flow N/C 4.00 09/03/22 16:00 101 13 128/61 (83) 95 High Flow N/C 4.00 09/03/22 15:45 36.8 09/03/22 15:21 High Flow N/C 4.00 09/03/22 15:00 92 28 99/45 (65) 98 Mechanical Ventilator 25.00 09/03/22 14:25 90 28 99 25 09/03/22 14:00 81 26 96/44 (61) 98 Mechanical Ventilator 25.00 09/03/22 13:00 77 17 107/53 (71) 97 Mechanical Ventilator 25.00 09/03/22 12:41 84 09/03/22 12:00 84 17 135/64 (92) 97 Mechanical Ventilator 25.00 09/03/22 12:00 100 Mechanical Ventilator 25 09/03/22 12:00 36.9 09/03/22 11:13 73 16 100 25 09/03/22 11:00 84 21 133/76 (95) 100 Mechanical Ventilator 25.00 09/03/22 10:00 80 16 140/70 (93) 100 Mechanical Ventilator 25.00 09/03/22 09:00 86 23 138/67 (90) 100 Mechanical Ventilator 25.00 I & O 09/04/22 07:00 Intake Total 970 ml Output Total 3550 ml Balance -2580 ml Capillary Refill : Less Than 3 Seconds General Appearance: Mild Distress, Obese HEENT: No Scleral Icterus (L), No Scleral Icterus (R); Other (dry oral mucosa ) Neck: Normal Inspection, Non Tender, Supple; No JVD Respiratory: Lungs Clear, Normal Breath Sounds, Other (breath sounds heard in all lung lazo. on ventilator at FiO2 30) Cardiovascular: No JVD, No Murmur, Normal Peripheral Pulses, Tachycardia Gastrointestinal: normal bowel sounds, soft, guarding (on palpation of RLQ), tenderness (diffusely, worst in RLQ), other (right RICCARDO bag draining fluid that is darker, but looking more serosanguinous now.) Extremity: Normal Capillary Refill, Normal Inspection, Non Tender, No Calf Tenderness, Pedal Edema (2+ pitting) Neurologic/Psychiatric: Alert (oriented x2), Other (moves limbs spontaneously) Skin: Normal Color, Warm/Dry; No Jaundice Lymphatic: No Adenopathy Results Lab Laboratory Tests 09/03/22 11:27: Glucometer 113H 09/03/22 14:31: Blood Gas Puncture Site L RAD, Blood Gas Patient Temperature 36.9, Arterial Blood pH 7.44H, Arterial Blood Partial Pressure CO2 36, Arterial Blood Partial Pressure O2 65L, Arterial Blood HCO3 24, Arterial Blood Total CO2 25.5, Arterial Blood Oxygen Saturation 95, Arterial Blood Base Excess 0.7, Aiden Test YES-POS, Blood Gas Ventilator Setting YES, Blood Gas Inspired Oxygen 25% 09/03/22 17:37: Glucometer 77 09/03/22 23:51: Glucometer 89 09/04/22 04:15: White Blood Count 9.1, Red Blood Count 3.63L, Hemoglobin 9.0L, Hematocrit 29L, Mean Corpuscular Volume 80, Mean Corpuscular Hemoglobin 25, Mean Corpuscular Hemoglobin Concent 31L, Red Cell Distribution Width 26.0H, Platelet Count 626H, Mean Platelet Volume 9.4, Immature Granulocyte % (Auto) 0, Neutrophils (%) (Auto) 75, Lymphocytes (%) (Auto) 11L, Monocytes (%) (Auto) 11, Eosinophils (%) (Auto) 3, Basophils (%) (Auto) 1, Neutrophils # (Auto) 6.8, Lymphocytes # (Auto) 1.0, Monocytes # (Auto) 1.0, Eosinophils # (Auto) 0.3, Basophils # (Auto) 0.1, Immature Granulocyte # (Auto) 0.0, Sodium Level 145, Potassium Level 3.9, Chloride Level 114H, Carbon Dioxide Level 24, Anion Gap 7, Blood Urea Nitrogen 32H, Creatinine 0.70, Estimat Glomerular Filtration Rate 89, BUN/Creatinine Ratio 46, Glucose Level 87, Calcium Level 8.4L, Corrected Calcium 9.6, Phosphorus Level 3.2, Magnesium Level 2.0, Total Bilirubin 0.5, Direct Bilirubin 0.4H, Indirect Bilirubin 0.1, Aspartate Amino Transf (AST/SGOT) 32, Alanine Aminotransferase (ALT/SGPT) 22, Alkaline Phosphatase 42, Total Protein 5.1L, Albumin 2.5L Microbiology 09/02/22 Catheter Tip Culture - Preliminary, Resulted No growth 09/02/22 Gram Stain - Final, Resulted 09/02/22 Wound Culture - Preliminary, Resulted Pseudomonas aeruginosa 08/23/22 Gram Stain - Final, Complete 08/23/22 Sputum Culture - Final, Complete Pseudomonas aeruginosa Mixed Bacterial Maida 08/22/22 Urine Culture - Final, Complete NO GROWTH Assessment/Plan Assessment/Plan Assessment/Plan Anemia - stable Hypotension - resolved and off pressors S/P Laparoscopic hand assisted right hemicolectomy (08/18) S/P Diagnostic lap with abd washout and colon resection and re-anastamosis (08/23) Leukocytosis - resolved today Thrombocythemia - platelets 626 today continue fluconazole therapy, continue pain medication, continue IVF, continue lasix therapy for LE edema continue to monitor Hgb, 9 today wound culture from midline incision grew rare pseudomonas on 09/02 KOURTNEY ARAGON DO 09/04/22 1340: Subjective Time Seen by a Provider: 12:21 Subjective/Events-last exam Pt seen and examined, extubated and appears comfortable. She has a hard time answering questions, not much of a voice and takes a while to answer. Review of Systems Gastrointestinal: Abdominal Pain (mild) Objective Exam General Appearance: Mild Distress, Obese HEENT: Other (dry oral mucosa ) Respiratory: Lungs Clear (except at bases), Normal Breath Sounds, Other (breath sounds heard in all lung lazo, dullness to percussion bases) Cardiovascular: No Murmur, Tachycardia Gastrointestinal: normal bowel sounds, soft, guarding (on palpation of RLQ), tenderness (diffusely, worst in RLQ), other (right RICCARDO bag draining fluid that is darker, but looking more serosanguinous now.) Extremity: Pedal Edema (2+ pitting) Neurologic/Psychiatric: Alert (oriented x2) Assessment/Plan Assessment/Plan Assessment/Plan Anemia - stable Hypotension - resolved and off pressors S/P Laparoscopic hand assisted right hemicolectomy (08/18) S/P Diagnostic lap with abd washout and colon resection and re-anastamosis (08/23) Leukocytosis - resolved today Thrombocythemia - platelets 626 today continue fluconazole therapy, continue pain medication, continue IVF, continue lasix therapy for LE edema continue to monitor Hgb, 9 today wound culture from midline incision grew rare pseudomonas on 09/02 Supervisory-Addendum Brief Verification & Attestation Participated in pt care: history, MDM, physical Personally performed: exam, history, MDM, supervision of care Care discussed with: Medical Student Procedures: n/a Verification and Attestation of Medical Student E/M Service A medical student performed and documented this service. I then reviewed and verified all information documented by the medical student and made modifications to such information, when appropriate. I personally performed a physical exam, medical decision making and then discussed any differences between the notes and made revisions as necessary to create one note. Kourtney Aragon , 09/04/22 , 13:40 DARRON HIGGINS Sep 04, 2022 08:32 KOURTNEY ARAGON DO Sep 04, 2022 13:40
--- NOTE | 2022-09-04 08:50 | Progress Note - Hospitalist ---
Subjective HPI/CC On Admission Date Seen by Provider: Sep 04, 2022 Time Seen by Provider: 11:00 Roseann had a very reassuring SBT yesterday. She lasted 2 hours with SBT. No overnight events, off pressors, on precedex currently for planned ct. Granddaughter reports that she and her sister spoke with Roseann yesterday and affirmed that Roseann herself does not want to do Trach/peg. 2.4L out yesterday after lasix dose, though +565cc on balance. Subjective/Events-last exam Extubated yesterday afternoon Patient still very debilitated Appears chronically ill at baseline Does not converse Objective Exam Vital Signs Vital Signs Date Time Temp Pulse Resp B/P (MAP) Pulse Ox O2 Delivery O2 Flow Rate FiO2 09/05/22 06:19 93 High Flow N/C 3.00 09/05/22 06:14 36.6 110 09/05/22 06:00 19 128/61 (83) 09/03/22 14:25 25 Capillary Refill : Less Than 3 Seconds General Appearance: No Apparent Distress, WD/WN, Chronically ill Respiratory: Lungs Clear, Normal Breath Sounds Cardiovascular: Regular Rate, Rhythm Neurologic/Psychiatric: Alert Results/Procedures Lab Laboratory Tests 09/05/22 03:15 Patient resulted labs reviewed. Imaging: Reviewed Imaging Films, Reviewed Imaging Report Assessment/Plan Assessment and Plan Assess & Plan/Chief Complaint Assess & Plan/Chief Complaint Adenocarinoma of ascending colon s/p partial colon and intraperitoneal mass resection -08/23 anastomotic leak noted -drain placed by surgery, monitoring -output from drain 465mL -BM + Septic shock AHRF Pneumonia RA Fluid Overload Seizure d/o -on IV keppra, continue Hx of HTN -monitor Microcytic Anemia Critical Care Critically Ill Patient FREDERICK,KOBY SAL Sep 04, 2022 08:50
[2022-09-04] MEDS: VITAMIN D3 25 MCG (1,000 UNITS) TABLET PO SCH (09:00)
[2022-09-04] MEDS: OXYBUTYNIN (DITROPAN) 5 MG TAB PO SCH ×2 (09:00→19:27)
[2022-09-04] MEDS: risperiDONE 0.5 MG (RisperDAL) TABLET PO SCH ×2 (09:00→19:27)
[2022-09-04] MEDS: lisINopril 20 MG (PRINIVIL) TABLET PO SCH (09:00)
--- NOTE | 2022-09-04 09:32 | Tele-ICU Progress Note ---
Subjective Date Seen by a Provider: Sep 04, 2022 Subjective/Events-last exam This virtual visit was conducted using real time audio/video. Thank you for asking us to see this patient for respiratory insufficiency due to pna, deconditioning, sepsis. Pt has colon CA and is S/P ex lap x 2. Ptis currently growing PSA from abd incision. Extubated 09/03/2022. PE: VSS. O2 sat 100% on 4 LPM HEENT: No obvious masses, adenopathy or JVD. Chest: clear to auscultation, diminished. CV: RRR S1 S2 No murmur or added sounds. Abd: Non-tender. Bowel sounds Y. : Unremarkable. [employer]/psychiatric: Grossly intact. No obvious focal findings. Extremities: 3+ edema. Capillary refill < 3 seconds. Skin: unremarkable. Results: Elevated BUN 32, Creat 2.2. Decreased Albumin 2.5. AB.44/36/65 on 25%. CXR: Large RML infilt. Available chart/ vitals / labs / images reviewed. Video assessment done using teleICU camera, rest of exam as per RN. A/P: Respiratory insufficiency: Continue present management with Duonebs, O2. Monitor for increasing oxygenation needs. Critical Care: critically ill patient. Cont. PPI, keppra, abx, antifungal, aricept, lisin., risperdal, Mirapex, SSI, Lovenox. Discussed with RACHEL Mas. Asked RN to reach out to eICU if any questions or concerns later. Time spent with patient/coordination of care with other health professionals (mins): 22 Sepsis Event Evaluation Height, Weight, BMI Height: 5'4.00" Weight: 193lbs. 3.0oz. [id number]; 39.95 BMI Method: Exam Exam Patient acknowledged, consented, and participated in this virtual visit which was conducted using real time audio/video Vital Signs Date Time Temp Pulse Resp B/P (MAP) Pulse Ox O2 Delivery O2 Flow Rate FiO2 09/04/22 09:00 109 21 130/64 (91) 100 High Flow N/C 4.00 09/04/22 08:15 100 High Flow N/C 3.00 09/04/22 08:00 103 23 124/58 (83) 93 High Flow N/C 4.00 09/04/22 07:22 100 Nasal Cannula 3.00 09/04/22 07:00 109 25 126/62 (83) 100 High Flow N/C 4.00 09/04/22 07:00 109 09/04/22 06:00 110 24 129/60 (83) 100 High Flow N/C 4.00 09/04/22 05:00 120 149/76 (100) 100 High Flow N/C 4.00 09/04/22 04:00 36.7 09/04/22 04:00 97 High Flow N/C 5.00 09/04/22 04:00 113 27 122/57 (78) 100 High Flow N/C 4.00 09/04/22 03:00 114 19 125/56 (79) 100 High Flow N/C 4.00 09/04/22 02:28 100 Nasal Cannula 4.00 09/04/22 02:00 112 21 130/63 (85) 100 High Flow N/C 4.00 09/04/22 01:00 114 24 124/56 (78) 100 High Flow N/C 4.00 09/04/22 01:00 116 09/04/22 00:00 124 21 144/64 (90) 97 High Flow N/C 4.00 09/04/22 00:00 36.6 09/03/22 23:59 97 High Flow N/C 5.00 09/03/22 23:00 108 28 126/61 (82) 100 High Flow N/C 4.00 09/03/22 22:58 100 Nasal Cannula 5.00 09/03/22 22:00 116 31 126/59 (81) 100 High Flow N/C 4.00 09/03/22 21:00 112 27 132/62 (85) 100 High Flow N/C 4.00 09/03/22 20:00 118 37 146/63 (90) 99 High Flow N/C 4.00 09/03/22 20:00 97 High Flow N/C 5.00 09/03/22 19:34 37.5 09/03/22 19:26 37.5 09/03/22 19:00 122 36 141/73 (95) 95 High Flow N/C 4.00 09/03/22 19:00 120 09/03/22 18:49 100 Nasal Cannula 4.00 09/03/22 18:00 108 45 132/58 (82) 95 High Flow N/C 4.00 09/03/22 17:00 109 36 125/63 (83) 100 High Flow N/C 4.00 09/03/22 16:00 High Flow N/C 4.00 09/03/22 16:00 101 13 128/61 (83) 95 High Flow N/C 4.00 09/03/22 15:45 36.8 09/03/22 15:21 High Flow N/C 4.00 09/03/22 15:00 92 28 99/45 (65) 98 Mechanical Ventilator 25.00 09/03/22 14:25 90 28 99 25 09/03/22 14:00 81 26 96/44 (61) 98 Mechanical Ventilator 25.00 09/03/22 13:00 77 17 107/53 (71) 97 Mechanical Ventilator 25.00 09/03/22 12:41 84 09/03/22 12:00 84 17 135/64 (92) 97 Mechanical Ventilator 25.00 09/03/22 12:00 100 Mechanical Ventilator 25 09/03/22 12:00 36.9 09/03/22 11:13 73 16 100 25 09/03/22 11:00 84 21 133/76 (95) 100 Mechanical Ventilator 25.00 09/03/22 10:00 80 16 140/70 (93) 100 Mechanical Ventilator 25.00 I & O 09/04/22 07:00 Intake Total 970 ml Output Total 3550 ml Balance -2580 ml Height & Weight Height: 5'4.00" Weight: 193lbs. 3.0oz. [id number]; 39.95 BMI Method: General Appearance: Mild Distress, Obese HEENT: No Scleral Icterus (L), No Scleral Icterus (R); Other (dry oral mucosa ) Neck: Normal Inspection, Non Tender, Supple; No JVD Respiratory: Lungs Clear, Normal Breath Sounds, Other (breath sounds heard in all lung lazo. on ventilator at FiO2 30) Cardiovascular: No JVD, No Murmur, Normal Peripheral Pulses, Tachycardia Capillary Refill: Less Than 3 Seconds Gastrointestinal: normal bowel sounds, soft, guarding (on palpation of RLQ), tenderness (diffusely, worst in RLQ), other (right RICCARDO bag draining fluid that is darker, but looking more serosanguinous now.) Extremity: Normal Capillary Refill, Normal Inspection, Non Tender, No Calf Tenderness, Pedal Edema (2+ pitting) Neurologic/Psychiatric: Alert (oriented x2), Other (moves limbs spontaneously) Skin: Normal Color, Warm/Dry; No Jaundice Lymphatic: No Adenopathy Results Lab Laboratory Tests 09/03/22 03:30 09/04/22 04:15 Assessment/Plan Assessment/Plan See free text. Critical Care: Critically Ill Patient MAIA MCCLURE MD Sep 04, 2022 09:32
--- NOTE | 2022-09-04 10:43 | Cardiology Progress Note ---
Subjective Date Seen by Provider: Sep 04, 2022 Time Seen by Provider: 08:30 Subjective/Events-last exam Extubated. No acute events overnight. HRs higher but pt complaining of more pain. Objective-Cardiology Exam Last Set of Vital Signs Vital Signs 09/03/22 09/04/22 14:25 10:00 Pulse 106 Resp 24 B/P (MAP) 135/64 (96) Pulse Ox 100 O2 Delivery High Flow N/C O2 Flow Rate 4.00 FiO2 25 I&O Intake and Output 09/04/22 00:00 Intake Total 2010 ml Output Total 3450 ml Balance -1440 ml Intake Oral 30 ml IV Total 600 ml Tube Feeding 800 ml Enteral Flush 100 ml Other 480 ml Output Urine Total 2625 ml Stool Total 800 ml Drainage Total 25 ml General: Alert, Cooperative, Other (intubated) Lungs: Normal Air Movement, Other Heart: Normal S1, Normal S2, Other (tachycardic) Abdomen: Normal Bowel Sounds, Soft Extremities: Other (2+ pitting edema) Skin: No Rashes, No Significant Lesion Neuro: Other (Intubated, following commands) Psych/Mental Status: Other (Intubated) Other physical findings Gen: No acute distress; responding to yes and no questions appropriately. recently extubated. Neck: soft supple, no cervical LAD Luns: CTA-bilaterally, no wheezing, rales or rhonchi CV: nl s1/s2, no m-g-r, RRR Abd: soft nd, no HSM, + BS Ext: wwp, no c-c; 1+BLE edema; 2+ DP and femoral pulses skin: no lesions rashes or ecchymoses are noted. Results Lab Laboratory Tests 09/04/22 04:15 A/P-Cardiology Admission Diagnosis Septic shock Hypotension Adenocardinoma Assessment/Plan ## Adenocarinoma of ascending colon, s/p partial colon and intraperitoneal mass resection with acute abdomen on August 23, 2022 underwent exploratory laparotomy, anastomosis leak was noted - drain in place - management per surgical team. ## Septic shock, hypotensive, tachycardic, respiratory failure- RESOLVing, now off pressors - cont to monitor ## Ventilator dependent respiratory failure, IMPROVEd; now extubated. - cont to monitor ## Sinus tachycardia- normal physiologic response to pain, infection, stress - cont to monitor - no need for intervention at this time ## Dispo: - no need for active cardiology based interventions - we will sign off; pl call if questions JOSE MARTIN WEAVER MD Sep 04, 2022 10:43
[2022-09-04] MEDS: PRAMIPEXOLE 0.125 MG (MIRAPEX) TABLET PO SCH (19:27)
[2022-09-04] MEDS: DONEPEZIL 10 MG (ARICEPT) TAB PO SCH (19:27)
[2022-09-05] MEDS: morphine INJ 4 MG/ML 1 ML (VIAL/SYRINGE) IVP PRN ×5 (01:20→23:53)
[2022-09-05] MEDS: RT-ALBUTEROL/IPRATROPIUM 3 ML (DUONEB) VIAL INH SCH ×3 (03:20→21:15)
[2022-09-05] MEDS: RT-ALBUTEROL SULF 2.5 MG/3 ML PRE-MIX VIAL INH PRN (03:21)
[2022-09-05 03:23] LABS: BASOPHILS # (AUTO) 0.1 10^3/uL (0.0-0.1); BASOPHILS % (AUTO) 1 % (0-10); EOSINOPHILS # (AUTO) 0.3 10^3/uL (0.0-0.3); EOSINOPHILS % (AUTO) 3 % (0-10); HEMATOCRIT 31 % (35-52); HEMOGLOBIN 9.4 g/dL (11.5-16.0); LYMPHOCYTES # (AUTO) 0.9 10^3/uL (1.0-4.0); LYMPHOCYTES % (AUTO) 9 % (12-44); MEAN CORPUSCULAR HEMOGLOBIN 25 pg (25-34); MEAN CORPUSCULAR HGB CONC 30 g/dL (32-36); MEAN CORPUSCULAR VOLUME 82 fL (80-99); MEAN PLATELET VOLUME 9.6 fL (9.0-12.2); MONOCYTES # (AUTO) 0.9 10^3/uL (0.0-1.0); MONOCYTES % (AUTO) 10 % (0-12); NEUTROPHILS # (AUTO) 7.3 10^3/uL (1.8-7.8); NEUTROPHILS % (AUTO) 77 % (42-75); PLATELET COUNT 639 10^3/uL (130-400); WHITE BLOOD COUNT 9.6 10^3/uL (4.3-11.0)
[2022-09-05] MEDS: KCL 20 MEQ TAB (K-DUR) PO SCH (03:23)
[2022-09-05] MEDS: ACETAMINOPHEN 500 MG TAB (TYLENOL) PO SCH ×3 (03:23→19:40)
[2022-09-05 03:31] LABS: ALBUMIN 2.5 GM/DL (3.2-4.5); POTASSIUM 4.2 MMOL/L (3.6-5.0)
[2022-09-05 03:32] LABS: CALCIUM 8.8 MG/DL (8.5-10.1)
[2022-09-05 03:34] LABS: TOTAL PROTEIN 5.3 GM/DL (6.4-8.2)
[2022-09-05 03:35] LABS: BILIRUBIN,TOTAL 0.5 MG/DL (0.1-1.0)
[2022-09-05 03:37] LABS: CREATININE SERUM 0.64 MG/DL (0.60-1.30); PHOSPHORUS 3.2 MG/DL (2.3-4.7)
[2022-09-05 03:39] LABS: BILIRUBIN,DIRECT 0.4 MG/DL (0.0-0.3); BILIRUBIN,INDIRECT 0.1 MG/DL
[2022-09-05 03:40] LABS: MAGNESIUM 1.9 MG/DL (1.6-2.4)
[2022-09-05] MEDS: POTASSIUM CL 10MEQ/50ML IVPB 50 ML IV SCH (03:42)
[2022-09-05] MEDS: inSUlin ASPART (NovoLOG) 1 UNIT/0.01 ML (CHARGE PER UNIT) SC SCH ×4 (03:42→18:16)
[2022-09-05] MEDS: MAGNESIUM 1 GM/100 ML IVPB 100 ML IV SCH ×3 (03:55→05:10)
[2022-09-05 06:14] VITALS: BP 128/61
--- NOTE | 2022-09-05 07:36 | Progress Note - Hospitalist ---
Subjective HPI/CC On Admission Date Seen by Provider: Sep 05, 2022 Time Seen by Provider: 11:00 Roseann had a very reassuring SBT yesterday. She lasted 2 hours with SBT. No overnight events, off pressors, on precedex currently for planned ct. Granddaughter reports that she and her sister spoke with Roseann yesterday and affirmed that Roseann herself does not want to do Trach/peg. 2.4L out yesterday after lasix dose, though +565cc on balance. Subjective/Events-last exam Maintaining off vent Very slow progress Dysphagia prevents PO intake Overall prognosis poor Review of Systems HEENT: Dysphasia Neurological: Confusion Objective Exam Vital Signs Vital Signs Date Time Temp Pulse Resp B/P (MAP) Pulse Ox O2 Delivery O2 Flow Rate FiO2 09/05/22 13:00 112 09/05/22 13:00 27 159/78 (110) 92 High Flow N/C 3.00 09/05/22 11:54 36.5 09/03/22 14:25 25 Capillary Refill : Less Than 3 Seconds General Appearance: No Apparent Distress, WD/WN, Chronically ill Respiratory: Lungs Clear, Normal Breath Sounds, Decreased Breath Sounds Cardiovascular: Regular Rate, Rhythm Neurologic/Psychiatric: Alert, Disoriented Results/Procedures Lab Laboratory Tests 09/05/22 03:15 Patient resulted labs reviewed. Imaging: Reviewed Imaging Films, Reviewed Imaging Report Assessment/Plan Assessment and Plan Assess & Plan/Chief Complaint Assess & Plan/Chief Complaint Adenocarinoma of ascending colon s/p partial colon and intraperitoneal mass resection -08/23 anastomotic leak noted -drain placed by surgery, monitoring -output from drain 465mL -BM + Septic shock AHRF Pneumonia RA Fluid Overload Seizure d/o -on IV keppra, continue Hx of HTN -monitor Microcytic Anemia Plan: Speech therapy tomorrow for dysphagia Prognosis poor Needs [facility] Critical Care Critically Ill Patient FREDERICKLUCRETIA NATARAJANAmanda SAL Sep 05, 2022 07:36
[2022-09-05] MEDS: NOREPINEPHRINE 8 MG/250 ML 250 ML IV SCH ×2 (07:58→22:20)
[2022-09-05] MEDS: lisINopril 20 MG (PRINIVIL) TABLET PO SCH (08:19)
[2022-09-05] MEDS: ENOXAPARIN 40 MG/0.4 ML (LOVENOX) SYR SC SCH (08:19)
[2022-09-05] MEDS: PANTOPRAZOLE 40 MG (PROTONIX) VIAL IVP SCH (08:19)
[2022-09-05] MEDS: levETIRAcetam 1000 mg/NS 100ml IVPB IV SCH ×2 (08:19→20:36)
[2022-09-05] MEDS: VITAMIN D3 25 MCG (1,000 UNITS) TABLET PO SCH (08:20)
[2022-09-05] MEDS: risperiDONE 0.5 MG (RisperDAL) TABLET PO SCH ×2 (08:20→19:39)
[2022-09-05] MEDS: MICONAZOLE 2% POWDER (DESENEX AF) 90 GM TOP SCH ×2 (08:20→20:36)
[2022-09-05] MEDS: OXYBUTYNIN (DITROPAN) 5 MG TAB PO SCH ×2 (08:20→19:39)
--- NOTE | 2022-09-05 09:44 | Progress Note - Surgery ---
DARRON HIGGINS 09/05/22 0944: Subjective Subjective/Events-last exam On 5.00L of supplemental oxygen by nasal canula with saturation in the low 90s at this time. She is increasingly alert and making effort to talk but is still unable to verbally communicate. She shakes her head "yes" when asked if her abdomen hurts and also shakes her head "yes" when asked it is it getting better. Dark red/brown fluid similar to before is seen in RICCARDO drain, approximately 5 mL overnight. Urine output approximately 0.8 mL/kg/hr overnight. Review of Systems Gastrointestinal: Abdominal Pain; No: Nausea Objective Exam Vital Signs Date Time Temp Pulse Resp B/P (MAP) Pulse Ox O2 Delivery O2 Flow Rate FiO2 09/05/22 09:00 117 133/77 (90) 97 High Flow N/C 3.00 09/05/22 08:24 90 High Flow N/C 5.00 09/05/22 08:00 113 18 149/73 (109) 90 High Flow N/C 3.00 09/05/22 07:54 36.6 09/05/22 07:00 113 19 139/66 (84) 94 High Flow N/C 3.00 09/05/22 07:00 112 09/05/22 06:19 93 High Flow N/C 3.00 09/05/22 06:14 36.6 110 92 09/05/22 06:00 111 19 128/61 (83) 91 High Flow N/C 3.00 09/05/22 05:00 112 20 138/63 (88) 89 High Flow N/C 3.00 09/05/22 04:00 99 High Flow N/C 2.00 09/05/22 04:00 110 17 126/56 (79) 95 High Flow N/C 3.00 09/05/22 03:21 96 High Flow N/C 09/05/22 03:00 112 19 98 High Flow N/C 3.00 09/05/22 01:00 114 15 127/57 (80) 98 High Flow N/C 3.00 09/05/22 01:00 105 09/05/22 00:00 111 16 124/62 (82) 97 High Flow N/C 3.00 09/05/22 00:00 36.6 09/04/22 23:59 99 High Flow N/C 2.00 09/04/22 23:00 117 17 125/58 (80) 100 High Flow N/C 3.00 09/04/22 22:45 High Flow N/C 3.00 09/04/22 22:35 High Flow N/C 3.00 09/04/22 22:00 115 24 144/69 (94) 97 High Flow N/C 2.00 09/04/22 21:00 118 22 144/61 (88) 89 High Flow N/C 2.00 09/04/22 20:00 99 High Flow N/C 2.00 09/04/22 20:00 112 19 124/54 (77) 94 High Flow N/C 2.00 09/04/22 19:47 37.2 09/04/22 19:00 115 25 130/63 (85) 97 High Flow N/C 2.00 09/04/22 19:00 113 09/04/22 18:44 96 High Flow N/C 2.50 09/04/22 18:00 117 21 135/69 (82) 95 High Flow N/C 2.00 09/04/22 17:00 112 127/52 (87) 90 High Flow N/C 2.00 09/04/22 16:00 100 High Flow N/C 2.00 09/04/22 16:00 111 26 135/60 (86) 100 High Flow N/C 2.00 09/04/22 15:55 36.3 09/04/22 15:16 96 Nasal Cannula 2.00 09/04/22 15:00 112 22 139/87 (108) 97 High Flow N/C 2.00 09/04/22 14:00 113 18 128/67 (75) 100 High Flow N/C 2.00 09/04/22 13:00 100 High Flow N/C 2.00 09/04/22 13:00 108 21 127/60 (74) 100 High Flow N/C 2.00 09/04/22 12:38 117 09/04/22 12:00 37.5 09/04/22 12:00 115 25 125/57 (82) 100 High Flow N/C 2.00 09/04/22 11:08 100 Nasal Cannula 2.00 09/04/22 11:00 107 27 117/54 (82) 100 High Flow N/C 2.00 09/04/22 10:00 106 24 135/64 (96) 100 High Flow N/C 4.00 I & O 09/05/22 07:00 Intake Total 675 ml Output Total 985 ml Balance -310 ml Capillary Refill : Less Than 3 Seconds General Appearance: No Apparent Distress, Chronically ill HEENT: Other (dry oral mucosa ) Neck: Non Tender, Supple Respiratory: Lungs Clear, Normal Breath Sounds Cardiovascular: Regular Rate, Rhythm, Tachycardia, Other (regular rhythm) Gastrointestinal: normal bowel sounds, soft, guarding (on palpation of RLQ), tenderness (diffusely, worst in RLQ), other (right RICCARDO draining serosanguinous appearing fluid) Extremity: Pedal Edema (2+ pitting) Neurologic/Psychiatric: Alert Skin: Normal Color, Warm/Dry; No Jaundice Lymphatic: No Adenopathy Results Lab Laboratory Tests 09/04/22 11:31: Glucometer 77 09/04/22 18:47: Glucometer 86 09/05/22 01:10: Glucometer 82 09/05/22 03:15: White Blood Count 9.6, Red Blood Count 3.78L, Hemoglobin 9.4L, Hematocrit 31L, Mean Corpuscular Volume 82, Mean Corpuscular Hemoglobin 25, Mean Corpuscular Hemoglobin Concent 30L, Red Cell Distribution Width 25.7H, Platelet Count 639H, Mean Platelet Volume 9.6, Immature Granulocyte % (Auto) 1, Neutrophils (%) (Auto) 77H, Lymphocytes (%) (Auto) 9L, Monocytes (%) (Auto) 10, Eosinophils (%) (Auto) 3, Basophils (%) (Auto) 1, Neutrophils # (Auto) 7.3, Lymphocytes # (Auto) 0.9L, Monocytes # (Auto) 0.9, Eosinophils # (Auto) 0.3, Basophils # (Auto) 0.1, Immature Granulocyte # (Auto) 0.1, Sodium Level 149H, Potassium Level 4.2, Chloride Level 117H, Carbon Dioxide Level 21, Anion Gap 11, Blood Urea Nitrogen 28H, Creatinine 0.64, Estimat Glomerular Filtration Rate 91, BUN/Creatinine Ratio 44, Glucose Level 87, Calcium Level 8.8, Corrected Calcium 10.0, Phosphorus Level 3.2, Magnesium Level 1.9, Total Bilirubin 0.5, Direct Bilirubin 0.4H, Indirect Bilirubin 0.1, Aspartate Amino Transf (AST/SGOT) 27, Alanine Aminotransferase (ALT/SGPT) 24, Alkaline Phosphatase 52, Total Protein 5.3L, Albumin 2.5L Microbiology 09/02/22 Catheter Tip Culture - Preliminary, Resulted No growth 09/02/22 Gram Stain - Final, Resulted 09/02/22 Wound Culture - Preliminary, Resulted Pseudomonas aeruginosa YEAST 08/23/22 Gram Stain - Final, Complete 08/23/22 Sputum Culture - Final, Complete Pseudomonas aeruginosa Mixed Bacterial Maida 08/22/22 Urine Culture - Final, Complete NO GROWTH Assessment/Plan Assessment/Plan Assessment/Plan Anemia - stable Hypotension - resolved and off pressors S/P Laparoscopic hand assisted right hemicolectomy (08/18) S/P Diagnostic lap with abd washout and colon resection and re-anastamosis (08/23) Leukocytosis - resolved today Thrombocythemia - same continue fluconazole therapy, continue pain medication, continue IVF continue to monitor Hgb KOURTNEY ARAGON DO 09/05/22 1210: Subjective Time Seen by a Provider: 11:19 Subjective/Events-last exam Pt seen and examined, she is trying to talk more....just can't really get the words out. She is alert. Nurse is stating she is unable to swallow and cannot cough out the phlegm in back of throat. She has a rattling cough/breathing. Review of Systems Gastrointestinal: Abdominal Pain; No: Nausea Objective Exam General Appearance: No Apparent Distress, Chronically ill Respiratory: No Accessory Muscle Use, No Respiratory Distress, Decreased Breath Sounds (at base), Other (dullness to percussion base) Cardiovascular: Tachycardia Gastrointestinal: normal bowel sounds, soft, guarding (on palpation of RLQ), tenderness (diffusely, worst in RLQ), other (right RICCARDO draining serosanguinous appearing fluid, VAC in place) Extremity: Pedal Edema (2+ pitting) Neurologic/Psychiatric: Alert Assessment/Plan Assessment/Plan Assessment/Plan Anemia - stable Hypotension - resolved and off pressors S/P Laparoscopic hand assisted right hemicolectomy (08/18) S/P Diagnostic lap with abd washout and colon resection and re-anastamosis (08/23) Leukocytosis - resolved today Thrombocythemia - same continue fluconazole therapy, continue pain medication, continue IVF continue to monitor Hgb Need to get RT to aggressively treat lungs Pt will need some sort of outpt rehab Supervisory-Addendum Brief Verification & Attestation Participated in pt care: history, MDM, physical Personally performed: exam, history, MDM, supervision of care Care discussed with: Medical Student Procedures: n/a Verification and Attestation of Medical Student E/M Service A medical student performed and documented this service. I then reviewed and verified all information documented by the medical student and made modifications to such information, when appropriate. I personally performed a physical exam, medical decision making and then discussed any differences between the notes and made revisions as necessary to create one note. Kourtney Aragon , 09/05/22 , 12:10 DARRON HIGGINS Sep 05, 2022 09:44 KOURTNEY ARAGON DO Sep 05, 2022 12:10
--- NOTE | 2022-09-05 10:10 | Tele-ICU Progress Note ---
Progress Note video rounds completed 76 y/o female underwent right hemicolectomy complicated by anastomotic leak and taken back to OR on POD #5 Currently doing better afterrecovering from septic shock PE: VSS labs stable, rising WBC PLAN: continue current management, being followed by surgery Focused Exam Height, Weight, BMI Height: 5'4.00" Weight: 193lbs. 3.0oz. 87.581585sq; 39.95 BMI Method: Labs Laboratory Tests 09/05/22 03:15 Results Results/Procedures Labs Laboratory Tests 09/04/22 04:15 09/05/22 03:15 Patient resulted labs reviewed. Imaging: Reviewed Imaging Films, Reviewed Imaging Report Results Labs Labs Laboratory Tests 09/04/22 11:31: Glucometer 77 09/04/22 18:47: Glucometer 86 09/05/22 01:10: Glucometer 82 09/05/22 03:15: White Blood Count 9.6, Red Blood Count 3.78L, Hemoglobin 9.4L, Hematocrit 31L, Mean Corpuscular Volume 82, Mean Corpuscular Hemoglobin 25, Mean Corpuscular Hemoglobin Concent 30L, Red Cell Distribution Width 25.7H, Platelet Count 639H, Mean Platelet Volume 9.6, Immature Granulocyte % (Auto) 1, Neutrophils (%) (Aut o) 77H, Lymphocytes (%) (Auto) 9L, Monocytes (%) (Auto) 10, Eosinophils (%) (Auto) 3, Basophils (%) (Auto) 1, Neutrophils # (Auto) 7.3, Lymphocytes # (Auto) 0.9L, Monocytes # (Auto) 0.9, Eosinophils # (Auto) 0.3, Basophils # (Auto) 0.1, Immature Granulocyte # (Auto) 0.1, Sodium Level 149H, Potassium Level 4.2, Chlo ride Level 117H, Carbon Dioxide Level 21, Anion Gap 11, Blood Urea Nitrogen 28H, Creatinine 0.64, Estimat Glomerular Filtration Rate 91, BUN/Creatinine Ratio 44, Glucose Level 87, Calcium Level 8.8, Corrected Calcium 10.0, Phosphorus Level 3.2, Magnesium Level 1.9, Total Bilirubin 0.5, Direct Bilirubin 0.4H, Indirect Bilirubin 0.1, Aspartate Amino Transf (AST/SGOT) 27, Alanine Aminotransferase (ALT/SGPT) 24, Alkaline Phosphatase 52, Total Protein 5.3L, Albumin 2.5L Microbiology 09/02/22 Catheter Tip Culture - Preliminary, Resulted No growth 09/02/22 Gram Stain - Final, Resulted 09/02/22 Wound Culture - Preliminary, Resulted Pseudomonas aeruginosa YEAST 08/23/22 Gram Stain - Final, Complete 08/23/22 Sputum Culture - Final, Complete Pseudomonas aeruginosa Mixed Bacterial Maida 08/22/22 Urine Culture - Final, Complete NO GROWTH MARY ANN CLIFFORD MD Sep 05, 2022 10:10
[2022-09-05] MEDS: PROPOFOL DRIP (ICU) 100 ML IV SCH ×2 (10:28→17:22)
[2022-09-05] MEDS: FLUCONAZOLE 100 MG/50 ML 50 ML IV SCH (10:28)
[2022-09-05] MEDS: PRAMIPEXOLE 0.125 MG (MIRAPEX) TABLET PO SCH (19:39)
[2022-09-05] MEDS: DONEPEZIL 10 MG (ARICEPT) TAB PO SCH (19:39)
[2022-09-06] MEDS: inSUlin ASPART (NovoLOG) 1 UNIT/0.01 ML (CHARGE PER UNIT) SC SCH ×4 (00:26→18:26)
[2022-09-06] MEDS: PROPOFOL DRIP (ICU) 100 ML IV SCH ×2 (00:27→09:57)
[2022-09-06 03:00] LABS: BASOPHILS # (AUTO) 0.1 10^3/uL (0.0-0.1); BASOPHILS % (AUTO) 1 % (0-10); EOSINOPHILS # (AUTO) 0.4 10^3/uL (0.0-0.3); EOSINOPHILS % (AUTO) 4 % (0-10); HEMATOCRIT 33 % (35-52); HEMOGLOBIN 9.7 g/dL (11.5-16.0); LYMPHOCYTES # (AUTO) 1.1 10^3/uL (1.0-4.0); LYMPHOCYTES % (AUTO) 13 % (12-44); MEAN CORPUSCULAR HEMOGLOBIN 25 pg (25-34); MEAN CORPUSCULAR HGB CONC 29 g/dL (32-36); MEAN CORPUSCULAR VOLUME 84 fL (80-99); MEAN PLATELET VOLUME 9.4 fL (9.0-12.2); MONOCYTES # (AUTO) 1.1 10^3/uL (0.0-1.0); MONOCYTES % (AUTO) 13 % (0-12); NEUTROPHILS # (AUTO) 6.2 10^3/uL (1.8-7.8); NEUTROPHILS % (AUTO) 69 % (42-75); PLATELET COUNT 627 10^3/uL (130-400)
[2022-09-06 03:08] LABS: ALBUMIN 2.5 GM/DL (3.2-4.5)
[2022-09-06 03:09] LABS: CALCIUM 8.8 MG/DL (8.5-10.1)
[2022-09-06 03:11] LABS: TOTAL PROTEIN 5.3 GM/DL (6.4-8.2)
[2022-09-06] MEDS: POTASSIUM CL 10MEQ/50ML IVPB 50 ML IV SCH (03:11)
[2022-09-06] MEDS: KCL 20 MEQ TAB (K-DUR) PO SCH (03:11)
[2022-09-06 03:12] LABS: BILIRUBIN,TOTAL 0.4 MG/DL (0.1-1.0)
[2022-09-06 03:14] LABS: CREATININE SERUM 0.68 MG/DL (0.60-1.30); PHOSPHORUS 3.2 MG/DL (2.3-4.7)
[2022-09-06 03:16] LABS: BILIRUBIN,DIRECT 0.3 MG/DL (0.0-0.3); BILIRUBIN,INDIRECT 0.1 MG/DL
[2022-09-06 03:17] LABS: MAGNESIUM 2.1 MG/DL (1.6-2.4)
[2022-09-06] MEDS: MAGNESIUM 1 GM/100 ML IVPB 100 ML IV SCH (03:26)
[2022-09-06] MEDS: ACETAMINOPHEN 500 MG TAB (TYLENOL) PO SCH ×3 (06:36→22:39)
--- NOTE | 2022-09-06 07:19 | Progress Note - Surgery ---
DARRON HIGGINS 09/06/22 0719: Subjective Date Seen by a Provider: Sep 06, 2022 Time Seen by a Provider: 07:00 Subjective/Events-last exam On 3.00L of supplemental oxygen by nasal canula with saturation in the upper 90s at this time. She is alert on examination and making effort to talk but is still unable to verbally communicate. She shakes her head "yes" when asked if her abdomen hurts. RICCARDO is draining red-orange fluid tipple engineer than yesterday, approximately 5 mL overnight. Urine output approximately 0.96 mL/kg/hr overnight. Review of Systems Gastrointestinal: Abdominal Pain Objective Exam Vital Signs Date Time Temp Pulse Resp B/P (MAP) Pulse Ox O2 Delivery O2 Flow Rate FiO2 09/06/22 06:00 81 10 139/72 (94) 98 High Flow N/C 3.00 09/06/22 05:00 97 17 143/72 (100) 99 High Flow N/C 3.00 09/06/22 04:41 155 09/06/22 04:00 103 13 136/74 (94) 97 High Flow N/C 3.00 09/06/22 04:00 99 High Flow N/C 3.00 09/06/22 03:54 36.5 09/06/22 03:00 105 11 137/70 (92) 99 High Flow N/C 3.00 09/06/22 02:00 106 11 138/63 (92) 100 High Flow N/C 3.00 09/06/22 01:00 100 11 134/59 (89) 100 High Flow N/C 3.00 09/06/22 01:00 100 09/06/22 00:00 107 29 151/75 (100) 97 High Flow N/C 3.00 09/05/22 23:59 99 High Flow N/C 3.00 09/05/22 23:43 167 09/05/22 23:00 102 14 151/72 (99) 97 High Flow N/C 3.00 09/05/22 22:00 107 12 151/73 (98) 96 High Flow N/C 3.00 09/05/22 21:15 97 High Flow N/C 5.00 09/05/22 21:00 103 18 158/82 (111) 97 High Flow N/C 3.00 09/05/22 20:00 102 18 155/71 (108) 98 High Flow N/C 3.00 09/05/22 20:00 99 High Flow N/C 3.00 09/05/22 19:39 36.4 09/05/22 19:00 100 09/05/22 19:00 98 20 163/93 (135) 96 High Flow N/C 3.00 09/05/22 18:00 99 26 158/75 (107) 97 High Flow N/C 3.00 09/05/22 17:00 107 16 154/74 (102) 97 High Flow N/C 3.00 09/05/22 16:00 108 29 160/77 (109) 95 High Flow N/C 3.00 09/05/22 16:00 94 High Flow N/C 3.00 09/05/22 15:30 36.5 09/05/22 15:00 110 27 154/76 (106) 97 High Flow N/C 3.00 09/05/22 14:00 109 31 159/77 (108) 97 High Flow N/C 3.00 09/05/22 13:00 112 09/05/22 13:00 112 27 159/78 (110) 92 High Flow N/C 3.00 09/05/22 12:00 94 High Flow N/C 4.00 09/05/22 12:00 115 151/75 (101) 92 High Flow N/C 3.00 09/05/22 11:54 36.5 09/05/22 11:00 108 21 155/94 (122) 92 High Flow N/C 3.00 09/05/22 10:00 113 151/96 (123) 94 High Flow N/C 3.00 09/05/22 09:00 117 133/77 (90) 97 High Flow N/C 3.00 09/05/22 08:24 90 High Flow N/C 5.00 09/05/22 08:00 113 18 149/73 (109) 90 High Flow N/C 3.00 09/05/22 07:54 36.6 I & O 09/06/22 07:00 Intake Total 750 ml Output Total 830 ml Balance -80 ml Capillary Refill : Less Than 3 Seconds General Appearance: No Apparent Distress, Chronically ill HEENT: Other (dry oral mucosa ) Neck: Non Tender, Supple Respiratory: Lungs Clear, Normal Breath Sounds Cardiovascular: Regular Rate, Rhythm, Tachycardia Gastrointestinal: normal bowel sounds, soft, guarding (on palpation of RLQ), tenderness (diffusely, worst in RLQ), other (right RICCARDO draining serosanguinous appearing fluid, VAC in place) Extremity: Pedal Edema (2+ pitting) Neurologic/Psychiatric: Alert, Disoriented Skin: Normal Color, Warm/Dry; No Jaundice Lymphatic: No Adenopathy Results Lab Laboratory Tests 09/05/22 13:34: Glucometer 87 09/05/22 17:55: Glucometer 84 09/05/22 23:47: Glucometer 78 09/06/22 02:50: White Blood Count 9.0, Red Blood Count 3.95, Hemoglobin 9.7L, Hematocrit 33L, Mean Corpuscular Volume 84, Mean Corpuscular Hemoglobin 25, Mean Corpuscular Hemoglobin Concent 29L, Red Cell Distribution Width 25.3H, Platelet Count 627H, Mean Platelet Volume 9.4, Immature Granulocyte % (Auto) 1, Neutrophils (%) (Auto) 69, Lymphocytes (%) (Auto) 13, Monocytes (%) (Auto) 13H, Eosinophils (%) (Auto) 4, Basophils (%) (Auto) 1, Neutrophils # (Auto) 6.2, Lymphocytes # (Auto) 1.1, Monocytes # (Auto) 1.1H, Eosinophils # (Auto) 0.4H, Basophils # (Auto) 0.1, Immature Granulocyte # (Auto) 0.1, Sodium Level 150H, Potassium Level 4.0, Chloride Level 117H, Carbon Dioxide Level 23, Anion Gap 10, Blood Urea Nitrogen 25H, Creatinine 0.68, Estimat Glomerular Filtration Rate 90, BUN/Creatinine Ratio 37, Glucose Level 86, Calcium Level 8.8, Corrected Calcium 10.0, Phosphorus Level 3.2, Magnesium Level 2.1, Total Bilirubin 0.4, Direct Bilirubin 0.3, Indirect Bilirubin 0.1, Aspartate Amino Transf (AST/SGOT) 23, Alanine Aminotransferase (ALT/SGPT) 23, Alkaline Phosphatase 53, Total Protein 5.3L, Albumin 2.5L Microbiology 09/02/22 Catheter Tip Culture - Final, Complete No growth 09/02/22 Gram Stain - Final, Complete 09/02/22 Wound Culture - Final, Complete Pseudomonas aeruginosa YEAST 08/23/22 Gram Stain - Final, Complete 08/23/22 Sputum Culture - Final, Complete Pseudomonas aeruginosa Mixed Bacterial Maida 08/22/22 Urine Culture - Final, Complete NO GROWTH Assessment/Plan Assessment/Plan Assessment/Plan Anemia - stable Hypotension - resolved and off pressors S/P Laparoscopic hand assisted right hemicolectomy (08/18) S/P Diagnostic lap with abd washout and colon resection and re-anastamosis (08/23) Leukocytosis - resolved Thrombocythemia - same continue fluconazole therapy, continue pain medication, continue IVF continue to monitor Hgb Need to get RT to aggressively treat lungs Pt will need some sort of outpt rehab KOURTNEY ARAGON DO 09/06/22 1340: Subjective Time Seen by a Provider: 12:01 Subjective/Events-last exam Pt seen and examined, alert but still can't talk. Review of Systems Gastrointestinal: Abdominal Pain Objective Exam General Appearance: No Apparent Distress, Chronically ill Respiratory: Lungs Clear, Normal Breath Sounds, No Accessory Muscle Use, No Respiratory Distress, Decreased Breath Sounds (at bases) Cardiovascular: Regular Rate, Rhythm Gastrointestinal: soft, guarding (on palpation of RLQ), tenderness (minimal), other (right RICCARDO draining serosanguinous appearing fluid, VAC in place) Neurologic/Psychiatric: Alert Assessment/Plan Assessment/Plan Assessment/Plan Anemia - stable Hypotension - resolved and off pressors S/P Laparoscopic hand assisted right hemicolectomy (08/18) S/P Diagnostic lap with abd washout and colon resection and re-anastamosis (08/23) Leukocytosis - resolved Thrombocythemia - same continue fluconazole therapy, continue pain medication, continue IVF continue to monitor Hgb Need to get RT to aggressively treat lungs Pt will need some sort of outpt rehab Supervisory-Addendum Brief Verification & Attestation Participated in pt care: history, MDM, physical Personally performed: exam, history, MDM, supervision of care Care discussed with: Medical Student Procedures: n/a Verification and Attestation of Medical Student E/M Service A medical student performed and documented this service. I then reviewed and verified all information documented by the medical student and made modifications to such information, when appropriate. I personally performed a physical exam, medical decision making and then discussed any differences between the notes and made revisions as necessary to create one note. Kourtney Aragon , 09/06/22 , 13:40 DARRON HIGGINS Sep 06, 2022 07:19 KOURTNEY ARAGON DO Sep 06, 2022 13:40
[2022-09-06] MEDS: RT-ALBUTEROL/IPRATROPIUM 3 ML (DUONEB) VIAL INH SCH ×2 (07:56→19:52)
[2022-09-06] MEDS: levETIRAcetam 1000 mg/NS 100ml IVPB IV SCH ×2 (08:40→20:29)
[2022-09-06] MEDS: PANTOPRAZOLE 40 MG (PROTONIX) VIAL IVP SCH (08:40)
[2022-09-06] MEDS: FLUCONAZOLE 100 MG/50 ML 50 ML IV SCH (08:40)
[2022-09-06] MEDS: ENOXAPARIN 40 MG/0.4 ML (LOVENOX) SYR SC SCH (08:41)
[2022-09-06] MEDS: morphine INJ 4 MG/ML 1 ML (VIAL/SYRINGE) IVP PRN ×3 (09:02→22:38)
[2022-09-06] MEDS: risperiDONE 0.5 MG (RisperDAL) TABLET PO SCH ×2 (09:27→20:29)
[2022-09-06] MEDS: OXYBUTYNIN (DITROPAN) 5 MG TAB PO SCH ×2 (09:27→20:29)
[2022-09-06] MEDS: VITAMIN D3 25 MCG (1,000 UNITS) TABLET PO SCH (09:28)
[2022-09-06] MEDS: lisINopril 20 MG (PRINIVIL) TABLET PO SCH (09:28)
[2022-09-06] MEDS: MICONAZOLE 2% POWDER (DESENEX AF) 90 GM TOP SCH ×2 (09:28→20:30)
[2022-09-06] MEDS: D5W 1000 ML IV SOLUTION 1,000 ML IV SCH (09:57)
[2022-09-06] MEDS ORDERED: MEROPENEM 500 MG in NS (IVPB) 100 ML IV ONE (11:00)
--- NOTE | 2022-09-06 12:20 | Tele-ICU Progress Note ---
Subjective Date Seen by a Provider: Sep 06, 2022 Time Seen by a Provider: 12:19 Subjective/Events-last exam Subjective/Events-last exam (Tele-ICU Physician , Progress Note ) Service provided via interactive audio and video telecommunications E-CARE system to a patient admitted to ICU bed in [facility]. Patient is seen today due to persistent need of ICU care Available chart/ vitals / labs / Images reviewed Video assessment done using teleICU camera, rest of exam as per RN Discussed with RN Events overnight : Afebrile hemodynamically stable Respiratory - 2l I/O = even Drips: off IV Pressors- OFF Hospital course: (08/18) 76F s/p Lap R hemicolectomy and excision of intraperitoneal mass. (08/22) to ICU with hypotension, tachycardia, and increased pain, r/o Intra- abdominal process - ?Anastomosis leak. CTA = Neg P Embolus. CT A/P = ?Asp PNA. (08/23) OR-Diagnostic Laparoscopy, laparotomy with colon resection and washout INTUBATED 08/24 - AC 16 40 % levo , added vaso 1 u PRBC transfused ( hb 6.6) , CR 3.4 - hydration and lasix x1 ( anuric ) renal consult , CVP 12 , Echo ef 55% 08/25 - AC 22 450 30% +6 , Cr 3 , Hb 6.6 - 2uPRBC , wound vac placed 08/25 , OFF LEVO , vaso 08/26- 30 % + 5 OFF levo , precedex prn 08/31 - followes command , SBT failed with rr 30+ and TV 200, 1 u PRBC , levo shortly 09/01 - 21% +5 , OFF levo 09/03 EXTUBATED A/P Acute hypoxic respiratory failure secondary to possible underlying sepsis, pneumonia and bibasilar atelectasis - INTUBATED 08/20-EXTUBATED 09/03 Hypoternsion 08/31 - suspected intravascular depletion and opioids effect, doubt new sepsis Shock resolved -pressors OFF 08/26 - few hours levo 08/31 -ECHO 08/09/22 - EF 55% , RVSP 50 mmHg Sepsis ( off -clindamycin and gentamicin) - sputum + for PSA - changed to merrem 08/24 0 stopped 09/03 - fluconason 09/03 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 - as per sx , wound vac placed 08/25 RA resolved Anemia (Perioperative anemia hb 9 - no obvious bleeding -s/p transfusion 1 u PRBC 08/24 , and 2 u PRBC 08/25, 1 pRBC 08/31 Hyper natremia - start D5W until canstart PO Pulm HTN - ECHO 08/09/22 RVSP 50 mmHg Nutrition - need to assess wallow Diarrhea- suspected as a result of TF started - FLEXYSEAL 08/30 Lines : L IJ 08/22 - removed 09/02, PICC 09/02 (Central Line Necessity Reviewed) Phillips: + ,, FLEXYSEAL 08/30- [id number] 09/06 OG: Nutrition: need Analgesia: Anxiety/ delirium VTE Prophylaxis: heparin sq if no active bleeding Stress Ulcer Prophylaxis: ppi Plans in collaboration with bedside consultants and IM MDs. Discussed with RN to reach out if any questions or concerns A total of 20 minutes of critical care time was devoted to this patient today, required to treat and/or prevent further deterioration of critical care condition ( as above ) . Sepsis Event Evaluation Height, Weight, BMI Height: 5'4.00" Weight: 193lbs. 3.0oz. [id number]; 39.95 BMI Method: Exam Exam Patient acknowledged, consented, and participated in this virtual visit which was conducted using real time audio/video Vital Signs Date Time Temp Pulse Resp B/P (MAP) Pulse Ox O2 Delivery O2 Flow Rate FiO2 09/06/22 12:09 95 09/06/22 11:45 36.6 09/06/22 11:00 106 30 165/80 (108) 97 High Flow N/C 2.00 09/06/22 10:00 126 23 147/76 (99) 100 High Flow N/C 2.00 09/06/22 09:00 105 16 163/84 (110) 97 High Flow N/C 2.00 09/06/22 08:15 99 High Flow N/C 3.00 09/06/22 08:04 2.00 09/06/22 08:00 82 16 154/78 (103) 100 High Flow N/C 3.00 09/06/22 08:00 36.3 09/06/22 07:56 99 High Flow N/C 3.00 09/06/22 07:00 97 09/06/22 07:00 97 10 136/69 (91) 99 High Flow N/C 3.00 09/06/22 06:00 81 10 139/72 (94) 98 High Flow N/C 3.00 09/06/22 05:00 97 17 143/72 (100) 99 High Flow N/C 3.00 09/06/22 04:41 155 09/06/22 04:00 103 13 136/74 (94) 97 High Flow N/C 3.00 09/06/22 04:00 99 High Flow N/C 3.00 09/06/22 03:54 36.5 09/06/22 03:00 105 11 137/70 (92) 99 High Flow N/C 3.00 09/06/22 02:00 106 11 138/63 (92) 100 High Flow N/C 3.00 09/06/22 01:00 100 11 134/59 (89) 100 High Flow N/C 3.00 09/06/22 01:00 100 09/06/22 00:00 107 29 151/75 (100) 97 High Flow N/C 3.00 09/05/22 23:59 99 High Flow N/C 3.00 09/05/22 23:43 167 09/05/22 23:00 102 14 151/72 (99) 97 High Flow N/C 3.00 09/05/22 22:00 107 12 151/73 (98) 96 High Flow N/C 3.00 09/05/22 21:15 97 High Flow N/C 5.00 09/05/22 21:00 103 18 158/82 (111) 97 High Flow N/C 3.00 09/05/22 20:00 102 18 155/71 (108) 98 High Flow N/C 3.00 09/05/22 20:00 99 High Flow N/C 3.00 09/05/22 19:39 36.4 09/05/22 19:00 100 09/05/22 19:00 98 20 163/93 (135) 96 High Flow N/C 3.00 09/05/22 18:00 99 26 158/75 (107) 97 High Flow N/C 3.00 09/05/22 17:00 107 16 154/74 (102) 97 High Flow N/C 3.00 09/05/22 16:00 108 29 160/77 (109) 95 High Flow N/C 3.00 09/05/22 16:00 94 High Flow N/C 3.00 09/05/22 15:30 36.5 09/05/22 15:00 110 27 154/76 (106) 97 High Flow N/C 3.00 09/05/22 14:00 109 31 159/77 (108) 97 High Flow N/C 3.00 09/05/22 13:00 112 09/05/22 13:00 112 27 159/78 (110) 92 High Flow N/C 3.00 I & O 09/06/22 07:00 Intake Total 750 ml Output Total 830 ml Balance -80 ml Height & Weight Height: 5'4.00" Weight: 193lbs. 3.0oz. 87.499171zz; 39.95 BMI Method: General Appearance: No Apparent Distress, Chronically ill HEENT: Other (dry oral mucosa ) Neck: Non Tender, Supple Respiratory: Lungs Clear, Normal Breath Sounds Cardiovascular: Regular Rate, Rhythm, Tachycardia Capillary Refill: Less Than 3 Seconds Gastrointestinal: normal bowel sounds, soft, guarding (on palpation of RLQ), te nderness (diffusely, worst in RLQ), other (right RICCARDO draining serosanguinous appearing fluid, VAC in place) Extremity: Pedal Edema (2+ pitting) Neurologic/Psychiatric: Alert, Disoriented Skin: Normal Color, Warm/Dry; No Jaundice Lymphatic: No Adenopathy Results Lab Laboratory Tests 09/05/22 03:15 09/06/22 02:50 Assessment/Plan Assessment/Plan 1 WALI HOGAN MD Sep 06, 2022 12:20
[2022-09-06] MEDS: meTOprolol 5 MG/5 ML (LOPRESSOR) VIAL IV PRN (13:52)
[2022-09-06] MEDS: NOREPINEPHRINE 8 MG/250 ML 250 ML IV SCH (15:22)
--- NOTE | 2022-09-06 18:00 | Progress Note ---
Subjective Subjective/Events-last exam Patient able to answer simple questions as she is not able to talk. NPO. Review of Systems HEENT: Dysphasia, Sore Throat Pulmonary: Dyspnea Gastrointestinal: Abdominal Pain; No: Nausea, Vomiting Neurological: Weakness, Incoordination, Confusion Objective Exam Last Set of Vital Signs Vital Signs Date Time Temp Pulse Resp B/P (MAP) Pulse Ox O2 Delivery O2 Flow Rate FiO2 09/06/22 17:00 74 21 165/78 (107) 90 Room Air 09/06/22 16:00 2.00 09/06/22 15:59 36.6 09/03/22 14:25 25 Capillary Refill : Less Than 3 Seconds I&O Intake and Output 09/06/22 00:00 Intake Total 750 ml Output Total 905 ml Balance -155 ml Intake Oral 100 ml IV Total 650 ml Output Urine Total 900 ml Drainage Total 5 ml General: Alert, No Acute Distress Lungs: Other (basilar crackles, normal work of breathing) Heart: Regular Rate, No Murmurs Abdomen: Soft, Other (Wound vac in place) Extremities: Other (1+ pitting edema bilateral LE) Results/Procedures Lab Laboratory Tests 09/05/22 23:47: Glucometer 78 09/06/22 02:50: White Blood Count 9.0, Red Blood Count 3.95, Hemoglobin 9.7L, Hematocrit 33L, Mean Corpuscular Volume 84, Mean Corpuscular Hemoglobin 25, Mean Corpuscular Hemoglobin Concent 29L, Red Cell Distribution Width 25.3H, Platelet Count 627H, Mean Platelet Volume 9.4, Immature Granulocyte % (Auto) 1, Neutrophils (%) (Auto) 69, Lymphocytes (%) (Auto) 13, Monocytes (%) (Auto) 13H, Eosinophils (%) (Auto) 4, Basophils (%) (Auto) 1, Neutrophils # (Auto) 6.2, Lymphocytes # (Auto) 1.1, Monocytes # (Auto) 1.1H, Eosinophils # (Auto) 0.4H, Basophils # (Auto) 0.1, Immature Granulocyte # (Auto) 0.1, Sodium Level 150H, Potassium Level 4.0, Chloride Level 117H, Carbon Dioxide Level 23, Anion Gap 10, Blood Urea Nitrogen 25H, Creatinine 0.68, Estimat Glomerular Filtration Rate 90, BUN/Creatinine Ratio 37, Glucose Level 86, Calcium Level 8.8, Corrected Calcium 10.0, Phosphorus Level 3.2, Magnesium Level 2.1, Total Bilirubin 0.4, Direct Bilirubin 0.3, Indirect Bilirubin 0.1, Aspartate Amino Transf (AST/SGOT) 23, Alanine Aminotransferase (ALT/SGPT) 23, Alkaline Phosphatase 53, Total Protein 5.3L, Albumin 2.5L 09/06/22 11:38: Glucometer 87 Microbiology 09/02/22 Catheter Tip Culture - Final, Complete No growth 09/02/22 Gram Stain - Final, Complete 09/02/22 Wound Culture - Final, Complete Pseudomonas aeruginosa YEAST 08/23/22 Gram Stain - Final, Complete 08/23/22 Sputum Culture - Final, Complete Pseudomonas aeruginosa Mixed Bacterial Maida 08/22/22 Urine Culture - Final, Complete NO GROWTH Assessment/Plan Assessment/Plan (1) Sepsis Status: Resolved Assessment & Plan: Moved to ICU, received IVF boluses, remained hypotensive and started on norepinephrine. Blood cx with gram pos cocci. Continued on clindamycin and gentamicin. 08/24- worsening in spite of surgical repair, change antibiotics to meropnem to avoid nephrotoxicity. Remaining tachycardic and hypotensive, now with decreasing urine output as well. Albumin ordered per [facility] ICU, appreciate recommendations. 08/25- slight improvement in renal function and heart rate, continue meropenem and vasopressin, titrate as able. Remains on ventilator, on 30% FiO2. 09/07: Extubated over the weekend, wound culture pending, off antibiotics other then antifungals, spoke with Frieda and wound is still growing psuedomonas, Christiana openum restarted Qualifiers: (2) Dysphasia Status: Acute Assessment & Plan: 09/07: Speech out today but will be back tomorrow, patient has failed bedside swallow, continue NPO status (3) S/P colon resection Status: Acute Assessment & Plan: Surgery following, appreciate recommendations. To OR for anastomotic leak repair on 08/23 (4) Acute kidney injury Status: Resolved Assessment & Plan: Acute on chronic, suspect secondary to sepsis. IVF and norepi as above as well as treating underlying infection. Monitor closely. 08/24- worsening, but as of yet potassium remains normal. Treating infection with antibiotic change as above, continue IVF and norepinephrine. 08/25- Nephrology consulted last night, anticipated need for transfer if UOP persistently decreased, but has improved this am and creatinine slightly improved also. Appreciate Nephrology recommendations. (5) Hyperphosphatemia Status: Resolved Assessment & Plan: 08/24 normalized. (6) Colon cancer Assessment & Plan: s/p resection as above. (7) GERD (gastroesophageal reflux disease) Status: Chronic (8) Seizure disorder Status: Chronic Assessment & Plan: On IV Keppra (9) Hypertension Status: Chronic Assessment & Plan: Currently hypotensive 09/07: Will continue to monitor may need to restart home meds now that sepsis is resolved Qualifiers: Qualified Codes: I10 - Essential (primary) hypertension (10) Alzheimer disease Status: Chronic (11) CKD (chronic kidney disease) Status: Chronic Qualifiers: Qualified Codes: N18.31 - Chronic kidney disease, stage 3a (12) Anemia Status: Acute Assessment & Plan: Acute on chronic, suspect blood loss related to procedures and lab draws. s/p 1 unit PRBC 08/24 with improvement, but down below 7 again today, repeat transfusion. (13) Goals of care, counseling/discussion Status: Acute Assessment & Plan: 08/23 Critically ill, No family at bedside currently, when asked if she would want compressions and intubation, she did shake her head yes. 08/24 updated granddaughter/DPOA by phone this morning 09/07: Patient extubated over the weekend, will need SNF at discharge (14) DVT prophylaxis Status: Acute Assessment & Plan: heparin AMANDA ALLRED MD Sep 06, 2022 18:00
[2022-09-06] MEDS: PRAMIPEXOLE 0.125 MG (MIRAPEX) TABLET PO SCH (20:29)
[2022-09-06] MEDS: DONEPEZIL 10 MG (ARICEPT) TAB PO SCH (20:30)
[2022-09-07] MEDS: inSUlin ASPART (NovoLOG) 1 UNIT/0.01 ML (CHARGE PER UNIT) SC SCH ×5 (00:21→23:59)
[2022-09-07] MEDS: morphine INJ 4 MG/ML 1 ML (VIAL/SYRINGE) IVP PRN ×4 (02:51→21:14)
[2022-09-07 04:36] LABS: BASOPHILS # (AUTO) 0.1 10^3/uL (0.0-0.1); BASOPHILS % (AUTO) 1 % (0-10); EOSINOPHILS # (AUTO) 0.5 10^3/uL (0.0-0.3); EOSINOPHILS % (AUTO) 5 % (0-10); HEMATOCRIT 32 % (35-52); HEMOGLOBIN 9.5 g/dL (11.5-16.0); LYMPHOCYTES % (AUTO) 11 % (12-44); MEAN CORPUSCULAR HEMOGLOBIN 25 pg (25-34); MEAN CORPUSCULAR HGB CONC 30 g/dL (32-36); MEAN CORPUSCULAR VOLUME 83 fL (80-99); MEAN PLATELET VOLUME 9.4 fL (9.0-12.2); MONOCYTES # (AUTO) 1.1 10^3/uL (0.0-1.0); MONOCYTES % (AUTO) 13 % (0-12); NEUTROPHILS # (AUTO) 6.1 10^3/uL (1.8-7.8); NEUTROPHILS % (AUTO) 70 % (42-75); PLATELET COUNT 539 10^3/uL (130-400); WHITE BLOOD COUNT 8.7 10^3/uL (4.3-11.0)
[2022-09-07 04:48] LABS: ALBUMIN 2.3 GM/DL (3.2-4.5)
[2022-09-07 04:49] LABS: POTASSIUM 3.5 MMOL/L (3.6-5.0)
[2022-09-07 04:50] LABS: CALCIUM 8.8 MG/DL (8.5-10.1)
[2022-09-07 04:51] LABS: TOTAL PROTEIN 5.1 GM/DL (6.4-8.2)
[2022-09-07 04:53] LABS: BILIRUBIN,TOTAL 0.4 MG/DL (0.1-1.0)
[2022-09-07 04:54] LABS: PHOSPHORUS 3.1 MG/DL (2.3-4.7)
[2022-09-07 04:55] LABS: CREATININE SERUM 0.66 MG/DL (0.60-1.30)
[2022-09-07 04:58] LABS: MAGNESIUM 1.8 MG/DL (1.6-2.4)
[2022-09-07] MEDS: POTASSIUM CL 10MEQ/50ML IVPB 50 ML IV SCH ×4 (05:14→07:29)
[2022-09-07] MEDS: KCL 20 MEQ TAB (K-DUR) PO SCH (05:14)
[2022-09-07] MEDS: MAGNESIUM 1 GM/100 ML IVPB 100 ML IV SCH ×3 (05:15→05:36)
[2022-09-07] MEDS: D5W 1000 ML IV SOLUTION 1,000 ML IV SCH ×2 (05:35→21:14)
[2022-09-07] MEDS: ACETAMINOPHEN 500 MG TAB (TYLENOL) PO SCH ×3 (05:36→23:08)
[2022-09-07] MEDS: NOREPINEPHRINE 8 MG/250 ML 250 ML IV SCH (05:36)
[2022-09-07] MEDS: RT-ALBUTEROL/IPRATROPIUM 3 ML (DUONEB) VIAL INH SCH ×2 (07:03→20:33)
--- NOTE | 2022-09-07 08:23 | Physical Therapy Evaluation ---
PT Evaluation-General Medical Diagnosis Admission Date Aug 18, 2022 at 08:55 Medical Diagnosis: colon cancer Onset Date: Aug 18, 2022 Therapy Diagnosis Therapy Diagnosis: generalized weakness/debility Height/Weight Height (Feet): 5 Height (Inches): 4.00 Weight (Pounds): 193 Weight (Ounces): 3.0 Precautions Precautions/Isolations: Standard Precautions Weight Bear Status Right Lower Extremity: Right Weight Bearing/Tolerated Left Lower Extremity: Left Weight Bearing/Tolerated Referral Physician: Sharita Reason for Referral: Evaluation/Treatment Medical History Additional Medical History colon cancer Current History Patient transferred to ICU due to decline in status. Intubated for several days and recently extubated. Reviewed History: Yes Social History Home: Single Level Current Living Status: Other Family Prior Prior Level of Function SCALE: Activities may be completed with or without assistive devices. 5-Cxxdzoccad-bbzcbzu completes the activity by him/herself with no assistance from a helper. 5-Set-up or Clean-up Assistance-helper sets up or cleans up; patient completes activity. Alta assists only prior to or following the activity. 4-Supervision or Touching Assistance-helper provides verbal cues and/or touching/steadying and/or contact guard assistance as patient completes activity. Assistance may be provided throughout the activity or intermittently. 3-Partial/Moderate Assistance-helper does LESS THAN HALF the effort. Alta lifts, holds or supports trunk or limbs, but provides less than half the effort. 2-Substantial/Maximal Assistance-helper does MORE THAN HALF the effort. Alta lifts or holds trunk or limbs and provides more than half the effort. 4-Auqhshtxm-rqvkqm does ALL the effort. Patient does none of the effort to complete the activity. Or, the assistance of 2 or more helpers is required for the patient to complete the activity. If activity was not attempted, code reason: 7-Patient Refused. 9-Not Applicable-not attempted and the patient did not perform the activity before the current illness, exacerbation or injury. 10-Not Attempted due to Environmental Limitations-(lack of equipment, weather restraints, etc.). 88-Not Attempted due to Medical Conditions or Safety Concerns. Bed Mobility: 6 Transfers (B,C,W/C): 6 Gait: 6 Stairs: 6 Indoor Mobility (Ambulation): Independent Stairs: Independent Prior Devices Use: None PT Evaluation-Current Subjective Patient alert and agrees to PT. RN present to assist. Pain Numeric Pain Scale: 8 Location: Medial, Lower Location Body Site: Abdomen Pain Description: Acute Objective Patient Orientation: Person, Time, Situation Attachments: Central Line, Oxygen, Phillips Catheter wound vac abdomen ROM/Strength ROM Lower Extremities bilateral LE WFL (with noted edema) Strength Lower Extremities 2/5 grossly bilateral LE all planes Integumentary/Posture Integumentary refer to nursing notes Bladder Incontinence: Phillips Cath Posture WFL Neuromuscular (Tone, Coordination, Reflexes) diminished with all Sensory Vision: Functional Hearing: Functional Transfers Roll Left to Right (QC): 1 Sit to Lying (QC): 1 (x 2) Lying to Sitting/Side of Bed(Q: 1 (x 2) Sit to Stand (QC): 88 Chair/Kbo-vo-Hjpsk Xfer(QC): 88 Gait Does the Patient Walk?: No and Walking Goal IS indicated Balance Sitting Static: Poor Sitting Dynamic: Poor Assessment/Needs Patient will benefit from skilled PT to address functional strength and mobility to improve current LOF. Patient is severely debilitated and weak requiring d ependent assist of 2 for all mobility. Rehab Potential: Guarded PT Short Term Goals Short Term Goals Time Frame: Sep 18, 2022 Roll Left & Right: 2 Sit to lyin Lying to sitting on side of be: 2 Sit to stand: 2 Chair/[id number]-[id number] transfer: 2 PT Driving School Instructor Goals Driving School Instructor Goals PT Driving School Instructor Goals Time Frame: Oct 09, 2022 Roll Left & Right (QC): 6 Sit to Lying (QC): 6 Lying-Sitting on Side/Bed(QC): 6 Sit to Stand (QC): 6 Chair/Gzi-tz-Mjvbk Xfer(QC): 6 Toilet Transfer (QC): 6 Walk 10 feet (QC): 6 Walk 50ft with 2 Turns (QC): 6 Walk 150 ft (QC): 6 PT Plan Problem List Problem List: Activity Tolerance, Functional Strength, Safety, Balance, Gait, Transfer, Bed Mobility Treatment/Plan Treatment Plan: Continue Plan of Care Treatment Plan: Bed Mobility, Education, Functional Activity Earlene, Functional Strength, Gait, Safety, Therapeutic Exercise, Transfers Treatment Duration: Oct 09, 2022 Frequency: 6 times per week Estimated Hrs Per Day: .25 hour per day Patient and/or Family Agrees t: Yes Time Time In: 730 Time Out: 751 DATE: Sep 07, 2022 Total Billed Treatment Time: 21 Total Billed Treatment 1 visit EVModC 21 min BRIGETTE FRANCISCO PT Sep 07, 2022 08:23
[2022-09-07] MEDS: ENOXAPARIN 40 MG/0.4 ML (LOVENOX) SYR SC SCH (08:50)
[2022-09-07] MEDS: levETIRAcetam 1000 mg/NS 100ml IVPB IV SCH ×2 (08:50→21:14)
[2022-09-07] MEDS: FLUCONAZOLE 100 MG/50 ML 50 ML IV SCH (08:50)
[2022-09-07] MEDS: PANTOPRAZOLE 40 MG (PROTONIX) VIAL IVP SCH (08:50)
--- NOTE | 2022-09-07 09:19 | Occ Therapy Progress Note ---
Therapy Progress Note OT order received, RN advised to hold til this afternoon d/t recent pain medication makes pt sleepy and pt reports increased pain following PT HOLLIE DENSON OT Sep 07, 2022 09:19
--- NOTE | 2022-09-07 09:23 | Speech Therapy Progress Note ---
Therapy Progress Note Speech pathology received a clinical bedside swallowing evaluation and reviewed the patient's chart. ST attempted the evaluation at 0920. The patient recently received morphine and displayed increased drowsiness. The RN requested the ST return at a later time, approximately 1100, to re-attempt the evaluation. ST agrees with this plan of care and will return at a more appropriate time for the patient. Thank you for the consultation. MELINA GASPAR Sep 07, 2022 09:23
[2022-09-07] MEDS: lisINopril 20 MG (PRINIVIL) TABLET PO SCH (09:29)
[2022-09-07] MEDS: MICONAZOLE 2% POWDER (DESENEX AF) 90 GM TOP SCH ×2 (09:29→21:14)
[2022-09-07] MEDS: VITAMIN D3 25 MCG (1,000 UNITS) TABLET PO SCH (09:29)
[2022-09-07] MEDS: OXYBUTYNIN (DITROPAN) 5 MG TAB PO SCH ×2 (09:29→20:50)
[2022-09-07] MEDS: risperiDONE 0.5 MG (RisperDAL) TABLET PO SCH ×2 (09:29→20:50)
--- NOTE | 2022-09-07 09:39 | Tele-ICU Progress Note ---
Subjective Date Seen by a Provider: Sep 07, 2022 Time Seen by a Provider: 09:39 Subjective/Events-last exam (Tele-ICU Physician , Progress Note ) Service provided via interactive audio and video telecommunications E-CARE system to a patient admitted to ICU bed in [facility]. Patient is seen today due to persistent need of ICU care Available chart/ vitals / labs / Images reviewed Video assessment done using teleICU camera, rest of exam as per RN Discussed with RN Events overnight : Afebrile hemodynamically stable Respiratory - 2l I/O = even Drips: off IV Pressors- OFF Hospital course: (08/18) 76F s/p Lap R hemicolectomy and excision of intraperitoneal mass. (08/22) to ICU with hypotension, tachycardia, and increased pain, r/o Intra- abdominal process - ?Anastomosis leak. CTA = Neg P Embolus. CT A/P = ?Asp PNA. (08/23) OR-Diagnostic Laparoscopy, laparotomy with colon resection and washout INTUBATED 08/24 - AC 16 40 % levo , added vaso 1 u PRBC transfused ( hb 6.6) , CR 3.4 - hydration and lasix x1 ( anuric ) renal consult , CVP 12 , Echo ef 55% 08/25 - AC 22 450 30% +6 , Cr 3 , Hb 6.6 - 2uPRBC , wound vac placed 08/25 , OFF LEVO , vaso 08/26- 30 % + 5 OFF levo , precedex prn 08/31 - followes command , SBT failed with rr 30+ and TV 200, 1 u PRBC , levo shortly 09/01 - 21% +5 , OFF levo 09/03 EXTUBATED A/P Acute hypoxic respiratory failure secondary to possible underlying sepsis, pneumonia and bibasilar atelectasis - INTUBATED 08/20- EXTUBATED 09/03 Shock resolved -pressors OFF 08/26 - few hours levo 08/31 -ECHO 08/09/22 - EF 55% , RVSP 50 mmHg Sepsis ( off -clindamycin and gentamicin) - sputum + for PSA - changed to merrem 08/24 0 stopped 09/03 - fluconason 09/03 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 - as per sx , wound vac placed 08/25 RA resolved Anemia (Perioperative anemia hb 9 - no obvious bleeding -s/p transfusion 1 u PRBC 08/24 , and 2 u PRBC 08/25, 1 pRBC 08/31 Hyper natremia - start D5W until can start PO Pulm HTN - ECHO 08/09/22 RVSP 50 mmHg Nutrition - po Diarrhea- suspected as a result of TF started - FLEXYSEAL 08/30 - removed 09/06 Lines : L IJ 08/22 - removed 09/02, PICC 09/02 (Central Line Necessity Reviewed) Phillips: + ,, FLEXYSEAL 08/30- [id number] 09/06 OG: Nutrition: need Analgesia: Anxiety/ delirium VTE Prophylaxis: heparin sq if no active bleeding Stress Ulcer Prophylaxis: ppi Plans in collaboration with bedside consultants and IM MDs. Discussed with RN to reach out if any questions or concerns A total of 20 minutes of critical care time was devoted to this patient today, required to treat and/or prevent further deterioration of critical care condition ( as above ) . Sepsis Event Evaluation Height, Weight, BMI Height: 5'4.00" Weight: 193lbs. 3.0oz. [id number]; 39.95 BMI Method: Exam Exam Patient acknowledged, consented, and participated in this virtual visit which was conducted using real time audio/video Vital Signs Date Time Temp Pulse Resp B/P (MAP) Pulse Ox O2 Delivery O2 Flow Rate FiO2 09/07/22 09:00 89 13 141/69 (93) 99 Nasal Cannula 2.00 09/07/22 08:04 36.9 09/07/22 08:00 102 16 149/73 (98) 95 Nasal Cannula 2.00 09/07/22 07:48 95 Nasal Cannula 2.00 09/07/22 07:29 105 09/07/22 07:03 96 High Flow N/C 2.00 09/07/22 07:00 103 16 155/75 (101) 98 Nasal Cannula 2.00 09/07/22 06:00 103 15 148/71 (96) 97 Nasal Cannula 2.00 09/07/22 05:47 Nasal Cannula 2.00 09/07/22 05:00 102 14 152/75 (100) 88 Nasal Cannula 4.00 09/07/22 04:18 92 Nasal Cannula 4.00 09/07/22 04:00 92 Nasal Cannula 4.00 09/07/22 04:00 102 14 150/71 (105) 89 Nasal Cannula 3.00 09/07/22 03:27 36.6 09/07/22 03:00 104 26 159/76 (115) 89 Nasal Cannula 3.00 09/07/22 02:00 98 15 157/76 (87) 97 Nasal Cannula 3.00 09/07/22 01:00 100 09/07/22 01:00 100 15 153/72 (107) 96 Nasal Cannula 3.00 09/07/22 00:21 94 Nasal Cannula 3.00 09/07/22 00:00 96 13 156/73 (103) 94 Nasal Cannula 3.00 09/06/22 23:49 36.6 09/06/22 23:00 97 16 155/85 (119) 91 Nasal Cannula 3.00 09/06/22 22:00 93 21 156/75 (103) 95 Nasal Cannula 3.00 09/06/22 21:00 94 24 162/76 (119) 94 Nasal Cannula 3.00 09/06/22 20:52 100 35 88 Nasal Cannula 3.00 09/06/22 20:35 92 Nasal Cannula 1.00 09/06/22 20:10 98 14 99 Nasal Cannula 1.00 09/06/22 20:00 101 15 159/73 (89) 98 Nasal Cannula 1.00 09/06/22 19:52 100 High Flow N/C 2.00 09/06/22 19:00 98 16 151/77 (103) 100 09/06/22 19:00 36.8 Nasal Cannula 1.00 09/06/22 19:00 97 09/06/22 19:00 97 14 151/77 (103) 100 Nasal Cannula 1.00 09/06/22 18:00 100 32 160/80 (106) 95 Room Air 09/06/22 17:00 74 21 165/78 (107) 90 Room Air 09/06/22 16:50 92 Room Air 09/06/22 16:34 Room Air 09/06/22 16:00 84 15 159/74 (102) 100 High Flow N/C 2.00 09/06/22 15:59 36.6 09/06/22 15:00 84 13 149/68 (95) 100 High Flow N/C 2.00 09/06/22 14:00 71 14 144/69 (94) 100 High Flow N/C 2.00 09/06/22 13:00 105 25 167/81 (109) 100 High Flow N/C 2.00 09/06/22 12:15 100 High Flow N/C 2.00 09/06/22 12:09 95 09/06/22 12:00 90 25 156/75 (102) 100 High Flow N/C 2.00 09/06/22 11:45 36.6 09/06/22 11:00 106 30 165/80 (108) 97 High Flow N/C 2.00 09/06/22 10:00 126 23 147/76 (99) 100 High Flow N/C 2.00 I & O 09/07/22 07:00 Intake Total 1350 ml Output Total 1235 ml Balance 115 ml Height & Weight Height: 5'4.00" Weight: 193lbs. 3.0oz. 87.781180rd; 39.95 BMI Method: General Appearance: No Apparent Distress, Chronically ill HEENT: Other (dry oral mucosa ) Neck: Non Tender, Supple Respiratory: Lungs Clear, Normal Breath Sounds, No Accessory Muscle Use, No Respiratory Distress, Decreased Breath Sounds (at bases) Cardiovascular: Regular Rate, Rhythm Capillary Refill: Less Than 3 Seconds Gastrointestinal: soft, guarding (on palpation of RLQ), tenderness (minimal), other (right RICCARDO draining serosanguinous appearing fluid, VAC in place) Extremity: Pedal Edema (2+ pitting) Neurologic/Psychiatric: Alert Skin: Normal Color, Warm/Dry; No Jaundice Lymphatic: No Adenopathy Results Lab Laboratory Tests 09/06/22 02:50 09/07/22 04:15 Assessment/Plan Assessment/Plan 1 WALI HOGAN MD Sep 07, 2022 09:39
--- NOTE | 2022-09-07 09:42 | Tele-ICU Progress Note ---
Subjective Date Seen by a Provider: Sep 07, 2022 Time Seen by a Provider: 09:41 Subjective/Events-last exam (Tele-ICU Physician , Progress Note ) Service provided via interactive audio and video telecommunications E-CARE system to a patient admitted to ICU bed in [facility]. Patient is seen today due to persistent need of ICU care Available chart/ vitals / labs / Images reviewed Video assessment done using teleICU camera, rest of exam as per RN Discussed with RN Events overnight : Afebrile hemodynamically stable Respiratory - 2l I/O = even Drips: off IV Pressors- OFF Hospital course: (08/18) 76F s/p Lap R hemicolectomy and excision of intraperitoneal mass. (08/22) to ICU with hypotension, tachycardia, and increased pain, r/o Intra- abdominal process - ?Anastomosis leak. CTA = Neg P Embolus. CT A/P = ?Asp PNA. (08/23) OR-Diagnostic Laparoscopy, laparotomy with colon resection and washout INTUBATED 08/24 - AC 16 40 % levo , added vaso 1 u PRBC transfused ( hb 6.6) , CR 3.4 - hydration and lasix x1 ( anuric ) renal consult , CVP 12 , Echo ef 55% 08/25 - AC 22 450 30% +6 , Cr 3 , Hb 6.6 - 2uPRBC , wound vac placed 08/25 , OFF LEVO , vaso 08/26- 30 % + 5 OFF levo , precedex prn 08/31 - followes command , SBT failed with rr 30+ and TV 200, 1 u PRBC , levo shortly 09/01 - 21% +5 , OFF levo 09/03 EXTUBATED A/P Acute hypoxic respiratory failure secondary to possible underlying sepsis, pneumonia and bibasilar atelectasis - INTUBATED 08/20- EXTUBATED 09/03 Shock resolved -pressors OFF 08/26 - few hours levo 08/31 -ECHO 08/09/22 - EF 55% , RVSP 50 mmHg Sepsis ( off -clindamycin and gentamicin) - sputum + for PSA - changed to merrem 08/24 0 stopped 09/03 - fluconason 09/03 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 - as per sx , wound vac placed 08/25 RA resolved Anemia (Perioperative anemia hb 9 - no obvious bleeding -s/p transfusion 1 u PRBC 08/24 , and 2 u PRBC 08/25, 1 pRBC 08/31 Hyper natremia - start D5W until can start PO Pulm HTN - ECHO 08/09/22 RVSP 50 mmHg Nutrition - po Diarrhea- suspected as a result of TF started - FLEXYSEAL 08/30 - removed 09/06 Lines : L IJ 08/22 - removed 09/02, PICC 09/02 (Central Line Necessity Reviewed) Phillips: + ,, FLEXYSEAL 08/30- [id number] 09/06 OG: Nutrition: need Analgesia: Anxiety/ delirium VTE Prophylaxis: heparin sq if no active bleeding Stress Ulcer Prophylaxis: ppi Plans in collaboration with bedside consultants and IM MDs. Discussed with RN to reach out if any questions or concerns A total of 20 minutes of critical care time was devoted to this patient today, required to treat and/or prevent further deterioration of critical care condition ( as above ) . Sepsis Event Evaluation Height, Weight, BMI Height: 5'4.00" Weight: 193lbs. 3.0oz. 87.065741kn; 39.95 BMI Method: Exam Exam Patient acknowledged, consented, and participated in this virtual visit which was conducted using real time audio/video Vital Signs Date Time Temp Pulse Resp B/P (MAP) Pulse Ox O2 Delivery O2 Flow Rate FiO2 09/07/22 09:00 89 13 141/69 (93) 99 Nasal Cannula 2.00 09/07/22 08:04 36.9 09/07/22 08:00 102 16 149/73 (98) 95 Nasal Cannula 2.00 09/07/22 07:48 95 Nasal Cannula 2.00 09/07/22 07:29 105 09/07/22 07:03 96 High Flow N/C 2.00 09/07/22 07:00 103 16 155/75 (101) 98 Nasal Cannula 2.00 09/07/22 06:00 103 15 148/71 (96) 97 Nasal Cannula 2.00 09/07/22 05:47 Nasal Cannula 2.00 09/07/22 05:00 102 14 152/75 (100) 88 Nasal Cannula 4.00 09/07/22 04:18 92 Nasal Cannula 4.00 09/07/22 04:00 92 Nasal Cannula 4.00 09/07/22 04:00 102 14 150/71 (105) 89 Nasal Cannula 3.00 09/07/22 03:27 36.6 09/07/22 03:00 104 26 159/76 (115) 89 Nasal Cannula 3.00 09/07/22 02:00 98 15 157/76 (87) 97 Nasal Cannula 3.00 09/07/22 01:00 100 09/07/22 01:00 100 15 153/72 (107) 96 Nasal Cannula 3.00 09/07/22 00:21 94 Nasal Cannula 3.00 09/07/22 00:00 96 13 156/73 (103) 94 Nasal Cannula 3.00 09/06/22 23:49 36.6 09/06/22 23:00 97 16 155/85 (119) 91 Nasal Cannula 3.00 09/06/22 22:00 93 21 156/75 (103) 95 Nasal Cannula 3.00 09/06/22 21:00 94 24 162/76 (119) 94 Nasal Cannula 3.00 09/06/22 20:52 100 35 88 Nasal Cannula 3.00 09/06/22 20:35 92 Nasal Cannula 1.00 09/06/22 20:10 98 14 99 Nasal Cannula 1.00 09/06/22 20:00 101 15 159/73 (89) 98 Nasal Cannula 1.00 09/06/22 19:52 100 High Flow N/C 2.00 09/06/22 19:00 98 16 151/77 (103) 100 09/06/22 19:00 36.8 Nasal Cannula 1.00 09/06/22 19:00 97 09/06/22 19:00 97 14 151/77 (103) 100 Nasal Cannula 1.00 09/06/22 18:00 100 32 160/80 (106) 95 Room Air 09/06/22 17:00 74 21 165/78 (107) 90 Room Air 09/06/22 16:50 92 Room Air 09/06/22 16:34 Room Air 09/06/22 16:00 84 15 159/74 (102) 100 High Flow N/C 2.00 09/06/22 15:59 36.6 09/06/22 15:00 84 13 149/68 (95) 100 High Flow N/C 2.00 09/06/22 14:00 71 14 144/69 (94) 100 High Flow N/C 2.00 09/06/22 13:00 105 25 167/81 (109) 100 High Flow N/C 2.00 09/06/22 12:15 100 High Flow N/C 2.00 09/06/22 12:09 95 09/06/22 12:00 90 25 156/75 (102) 100 High Flow N/C 2.00 09/06/22 11:45 36.6 09/06/22 11:00 106 30 165/80 (108) 97 High Flow N/C 2.00 09/06/22 10:00 126 23 147/76 (99) 100 High Flow N/C 2.00 I & O 09/07/22 07:00 Intake Total 1350 ml Output Total 1235 ml Balance 115 ml Height & Weight Height: 5'4.00" Weight: 193lbs. 3.0oz. 87.105960zi; 39.95 BMI Method: General Appearance: No Apparent Distress, Chronically ill HEENT: Other (dry oral mucosa ) Neck: Non Tender, Supple Respiratory: Lungs Clear, Normal Breath Sounds, No Accessory Muscle Use, No Respiratory Distress, Decreased Breath Sounds (at bases) Cardiovascular: Regular Rate, Rhythm Capillary Refill: Less Than 3 Seconds Gastrointestinal: soft, guarding (on palpation of RLQ), tenderness (minimal), other (right RICCARDO draining serosanguinous appearing fluid, VAC in place) Extremity: Pedal Edema (2+ pitting) Neurologic/Psychiatric: Alert Skin: Normal Color, Warm/Dry; No Jaundice Lymphatic: No Adenopathy Results Lab Laboratory Tests 09/06/22 02:50 09/07/22 04:15 Assessment/Plan Assessment/Plan 1 WALI HOGAN MD Sep 07, 2022 09:42
--- NOTE | 2022-09-07 10:20 | Progress Note - Surgery ---
DARRON HIGGINS 09/07/22 1020: Subjective Date Seen by a Provider: Sep 07, 2022 Time Seen by a Provider: 09:30 Subjective/Events-last exam Patient on 2.00 L of supplemental oxygen by nasal canula with oxygen saturation in the mid-upper 90s. She appears to be gaining strength; she was able to form 3-4 words during assessment. Fluid in RICCARDO drain (total of ~ 8 mL overnight) appears less serosanginous than previous two days; still has a orange/red hue. Her wound vac was changed overnight. Urine output 425 mL from 7 pm to 7 am. Per nursing, she failed her bedside dysphagia study yesterday and has a speech evaluation study today. Review of Systems Gastrointestinal: Abdominal Pain Objective Exam Vital Signs Date Time Temp Pulse Resp B/P (MAP) Pulse Ox O2 Delivery O2 Flow Rate FiO2 09/07/22 10:00 103 12 147/74 (98) 100 Nasal Cannula 2.00 09/07/22 09:00 89 13 141/69 (93) 99 Nasal Cannula 2.00 09/07/22 08:04 36.9 09/07/22 08:00 102 16 149/73 (98) 95 Nasal Cannula 2.00 09/07/22 07:48 95 Nasal Cannula 2.00 09/07/22 07:29 105 09/07/22 07:03 96 High Flow N/C 2.00 09/07/22 07:00 103 16 155/75 (101) 98 Nasal Cannula 2.00 09/07/22 06:00 103 15 148/71 (96) 97 Nasal Cannula 2.00 09/07/22 05:47 Nasal Cannula 2.00 09/07/22 05:00 102 14 152/75 (100) 88 Nasal Cannula 4.00 09/07/22 04:18 92 Nasal Cannula 4.00 09/07/22 04:00 92 Nasal Cannula 4.00 09/07/22 04:00 102 14 150/71 (105) 89 Nasal Cannula 3.00 09/07/22 03:27 36.6 09/07/22 03:00 104 26 159/76 (115) 89 Nasal Cannula 3.00 09/07/22 02:00 98 15 157/76 (87) 97 Nasal Cannula 3.00 09/07/22 01:00 100 09/07/22 01:00 100 15 153/72 (107) 96 Nasal Cannula 3.00 09/07/22 00:21 94 Nasal Cannula 3.00 09/07/22 00:00 96 13 156/73 (103) 94 Nasal Cannula 3.00 09/06/22 23:49 36.6 09/06/22 23:00 97 16 155/85 (119) 91 Nasal Cannula 3.00 09/06/22 22:00 93 21 156/75 (103) 95 Nasal Cannula 3.00 09/06/22 21:00 94 24 162/76 (119) 94 Nasal Cannula 3.00 09/06/22 20:52 100 35 88 Nasal Cannula 3.00 09/06/22 20:35 92 Nasal Cannula 1.00 09/06/22 20:10 98 14 99 Nasal Cannula 1.00 09/06/22 20:00 101 15 159/73 (89) 98 Nasal Cannula 1.00 09/06/22 19:52 100 High Flow N/C 2.00 09/06/22 19:00 98 16 151/77 (103) 100 09/06/22 19:00 36.8 Nasal Cannula 1.00 09/06/22 19:00 97 09/06/22 19:00 97 14 151/77 (103) 100 Nasal Cannula 1.00 09/06/22 18:00 100 32 160/80 (106) 95 Room Air 09/06/22 17:00 74 21 165/78 (107) 90 Room Air 09/06/22 16:50 92 Room Air 09/06/22 16:34 Room Air 09/06/22 16:00 84 15 159/74 (102) 100 High Flow N/C 2.00 09/06/22 15:59 36.6 09/06/22 15:00 84 13 149/68 (95) 100 High Flow N/C 2.00 09/06/22 14:00 71 14 144/69 (94) 100 High Flow N/C 2.00 09/06/22 13:00 105 25 167/81 (109) 100 High Flow N/C 2.00 09/06/22 12:15 100 High Flow N/C 2.00 09/06/22 12:09 95 09/06/22 12:00 90 25 156/75 (102) 100 High Flow N/C 2.00 09/06/22 11:45 36.6 09/06/22 11:00 106 30 165/80 (108) 97 High Flow N/C 2.00 I & O 09/07/22 07:00 Intake Total 1350 ml Output Total 1235 ml Balance 115 ml Capillary Refill : Less Than 3 Seconds General Appearance: No Apparent Distress, Chronically ill HEENT: Other (dry oral mucosa ) Neck: Non Tender, Supple Respiratory: Lungs Clear, Normal Breath Sounds, No Accessory Muscle Use, No Respiratory Distress Cardiovascular: Regular Rate, Rhythm Gastrointestinal: soft, guarding (on palpation of RLQ), tenderness (diffuse), other (right RICCARDO draining more serous appearing fluid compared to previous assessment, still orange/red tinged VAC in place) Extremity: Other (compression socks placed bilaterally) Neurologic/Psychiatric: Alert Skin: Normal Color, Warm/Dry; No Jaundice Lymphatic: No Adenopathy (cervical) Results Lab Laboratory Tests 09/06/22 11:38: Glucometer 87 09/06/22 18:07: Glucometer 91 09/06/22 23:17: Glucometer 90 09/07/22 04:15: White Blood Count 8.7, Red Blood Count 3.84, Hemoglobin 9.5L, Hematocrit 32L, Mean Corpuscular Volume 83, Mean Corpuscular Hemoglobin 25, Mean Corpuscular Hemoglobin Concent 30L, Red Cell Distribution Width 25.2H, Platelet Count 539H, Mean Platelet Volume 9.4, Immature Granulocyte % (Auto) 1, Neutrophils (%) (Auto) 70, Lymphocytes (%) (Auto) 11L, Monocytes (%) (Auto) 13H, Eosinophils (%) (Auto) 5, Basophils (%) (Auto) 1, Neutrophils # (Auto) 6.1, Lymphocytes # (Auto) 1.0, Monocytes # (Auto) 1.1H, Eosinophils # (Auto) 0.5H, Basophils # (Auto) 0.1, Immature Granulocyte # (Auto) 0.1, Sodium Level 148H, Potassium Level 3.5L, Chloride Level 114H, Carbon Dioxide Level 24, Anion Gap 10, Blood Urea Nitrogen 21H, Creatinine 0.66, Estimat Glomerular Filtration Rate 90, BUN/Creatinine Ratio 32, Glucose Level 98, Calcium Level 8.8, Corrected Calcium 10.2H, Phosphorus Level 3.1, Magnesium Level 1.8, Total Bilirubin 0.4, Aspartate Amino Transf (AST/SGOT) 20, Alanine Aminotransferase (ALT/SGPT) 20, Alkaline Phosphatase 49, Total Protein 5.1L, Albumin 2.3L Microbiology 09/02/22 Catheter Tip Culture - Final, Complete No growth 09/02/22 Gram Stain - Final, Complete 09/02/22 Wound Culture - Final, Complete Pseudomonas aeruginosa YEAST 08/23/22 Gram Stain - Final, Complete 08/23/22 Sputum Culture - Final, Complete Pseudomonas aeruginosa Mixed Bacterial [place] 08/22/22 Urine Culture - Final, Complete NO GROWTH Assessment/Plan Assessment/Plan Assessment/Plan Anemia - stable Hypotension - resolved and off pressors S/P Laparoscopic hand assisted right hemicolectomy (08/18) S/P Diagnostic lap with abd washout and colon resection and re-anastamosis (08/23) Leukocytosis - resolved Thrombocythemia - improving continue fluconazole therapy, continue pain medication, continue IVF continue to monitor Hgb Need to get RT to aggressively treat lungs Pt transferred to med-surg today KOURTNEY ARAGON DO 09/07/22 1826: Subjective Time Seen by a Provider: 17:58 Subjective/Events-last exam Pt seen and examined, she appears comfortable in her bed. Nurse states they had a little bit of hard time getting NGT down (pt didn't like and there was some bleeding), but has already put TF down and pt tolerated without difficulty. Review of Systems Gastrointestinal: Abdominal Pain Objective Exam General Appearance: No Apparent Distress, Chronically ill HEENT: Other (dry oral mucosa ) Respiratory: No Accessory Muscle Use, No Respiratory Distress, Crackles (??mild), Decreased Breath Sounds (at bases) Gastrointestinal: soft, guarding (on palpation of RLQ), tenderness (diffuse), other (right RICCARDO draining more serous appearing fluid compared to previous assessment, still orange/red tinged VAC in place) Extremity: Other (compression socks placed bilaterally) Neurologic/Psychiatric: Alert Assessment/Plan Assessment/Plan Assessment/Plan Anemia - stable Hypotension - resolved and off pressors S/P Laparoscopic hand assisted right hemicolectomy (08/18) S/P Diagnostic lap with abd washout and colon resection and re-anastamosis (08/23) Leukocytosis - resolved Thrombocythemia - improving continue fluconazole therapy, continue pain medication, continue IVF continue to monitor Hgb Need to get RT to aggressively treat lungs Pt transferred to med-surg today Supervisory-Addendum Brief Verification & Attestation Participated in pt care: history, MDM, physical Personally performed: exam, history, MDM, supervision of care Care discussed with: Medical Student Procedures: n/a Verification and Attestation of Medical Student E/M Service A medical student performed and documented this service. I then reviewed and verified all information documented by the medical student and made modifications to such information, when appropriate. I personally performed a physical exam, medical decision making and then discussed any differences between the notes and made revisions as necessary to create one note. Kourtney Aragon , 09/07/22 , 18:26 DARRON HIGGINS Sep 07, 2022 10:20 KOURTNEY ARAGON DO Sep 07, 2022 18:26
--- NOTE | 2022-09-07 11:16 | Speech Therapy Progress Note ---
Therapy Progress Note ST re-attempted the evaluation at 1107. At this time, the patient requested to use the bedpan. ST assisted the RN with placement of the bedpan and will return shortly once the patient is appropriate for participation. Thank you. MELINA GASPAR Sep 07, 2022 11:16
[2022-09-07 12:00] VITALS: BP 155/77
--- NOTE | 2022-09-07 13:22 | ST Dysphagia Evaluation ---
Speech Evaluation-General Medical Diagnosis Colon Cancer Onset Date: Aug 18, 2022 Therapy Diagnosis Therapy Diagnosis: Suspected Oropharyngeal Dysphagia Precautions Precautions: Fall, Pressure Ulcer, Aspiration Precautions/Isolations: Aspiration, Fall Prevention, Standard Precautions, Pressure Ulcer Referral Referring Physician: Dr. Gerber Reason for Referral: Evaluation/Treatment Medical History Reviewed History: Yes Social History Current Living Status: Other Family Speech PLF/Current-Dysphagia Prior Level of Function The patient was unable to provide prior level of P.O. intake information to the clinician at this time. The patient currently has a PEG tube in place and is receiving total nutrition, hydration, and medication via PEG tube. Subjective The patient was lying in bed, sleeping, upon entrance to her room by the clinician. The patient woke easily to gentle clinician verbal cueing and was agreeable to participation in the clinical bedside swallowing evaluation. The patient is currently receiving 3L supplemental oxygen. The patient was intubated from 08/23/2022 to 09/03/2022. Cognitive Status Patient Orientation: Person, Place Oral Motor Skills Dentition: Natural Ability to Follow Directions: Fair Oral Expression Ability: Mild Impairment (Secondary to fatigue.) Voice Voice Phonatory-Based Quality: Breathy, Weak Voice Pitch: Normal Voice Loudness: Severely Soft/Quiet (Suspected secondary to prolonged intubation.) Face Facial Symmetry: Symmetrical Oral-Facial Assessment Oral-Facial Dentition: Normal Labial Seal Description: Weak Lingual Protrusion: Abnormal (Decreased.) Lingual ROM: Abnormal (Decreased bilaterally.) Lingual Strength: Abnormal (Decreased.) Volitional Dry Swallow: Yes Voluntary Cough: Yes Can Clear Throat Volitionally: Yes Productive Cough: Yes Productive Throat Clear: Yes Dysphagia Evaluation Consistencies Presented: Thin Liquid (Ice chips. The patient politely deferred additional P.O. consistencies including teaspoons of water and puree.) The patient displayed excellent oral and lingual coordination of the ice chip, demonstrating adequate bilateral manipulation and closure of the lips to provide pressure for a timely posterior oral transfer. The patient displayed an initial "rocking" on the thyroid cartilage in attempts to initiate the first pharyngeal swallow. Following the initial attempt, a timely pharyngeal swallow response was demonstrated. The patient does not display any s/s of suspected aspiration with the multiple ice chips provided. The patient's aphonic voice quality improves throughout the trials, as the patient displays a more clear, strong vocal quality at the close of bolus trials. The patient politely deferred additional consistencies on this date secondary to fatigue. Dietary Recommendations: NPO Liquid Recommendations: NPO Recommendations: - The patient should continued to receive her primary nutrition, hydration, and medication via PEG tube. - Excellent and frequent oral care to be provided to reduce the transfer of oral bacteria to the lungs should aspiration of secretions be experienced. - Following excellent oral care, ice chips (sparingly, three to five per hour) to aid in oral comfort and the rehabilitation of the oropharyngeal swallow response. - Speech pathology to continue daily evaluation of the oropharyngeal swallow response; The results and recommendations were provided to the patient and the RN immediately following the evaluation. While the patient's voice is aphonic, she remains able to verbalize her wants and needs to the clinician. The patient denied questions or concerns for the clinician at this time. Dysphagia Evaluation Summary The patient displayed suspected oropharyngeal dysphagia secondary to lingual weakness and poor glottal closure. Continued and ongoing oropharyngeal swallowing assessment will take place daily. Speech Short Term Goals Short Term Goals Short Term Goals 1. The patient will tolerate trials of the least restrictive consistency without s/s of suspected aspiration. Time Frame-STG: Five Days. Speech Chcf Goals Wood Fence Installer Goals 1. The patient will tolerate the least restrictive diet consistency without s/s of suspected aspiration. Time Frame: Two Weeks. Speech-Plan Treatment Plan Speech Therapy Treatment Plan: Continue Plan of Care Treatment Duration: Sep 24, 2022 Frequency: 4 times per week Estimated Hrs Per Day: .25 hour per day Rehab Potential: Guarded Pt/Family Agrees to Plan: Yes Safety Risks/Education Teaching Recipient: Patient Teaching Methods: Discussion Response to Teaching: Verbalize Understanding Education Topics Provided: Results, Recommendations, Plan of Care, Safe Swallowing Precautions, S/s of Suspected Aspiration Time Speech Therapy Time In: 12:28 Speech Therapy Time Out: 12:48 DATE: Sep 07, 2022 Total Billed Time: 20 Billed Treatment Time 1, CLAIRE SHER [facility] ST Sep 07, 2022 13:22
--- NOTE | 2022-09-07 15:36 | Occupational Therapy Eval ---
OT Evaluation-General/PLF Medical Diagnosis Admission Date Aug 18, 2022 at 08:55 Medical Diagnosis: Colon Cancer Onset Date: Aug 18, 2022 Therapy Diagnosis Therapy Diagnosis: weakness Height/Weight Height (Feet): 5 Height (Inches): 4.00 Weight (Pounds): 193 Weight (Ounces): 3.0 Precautions Precautions/Isolations: Aspiration, Fall Prevention, Standard Precautions, Pressure Ulcer Weight Bear Status Weight Bearing Restriction: Weight Bearing/Tolerated Referral Physician: Sharita Medical History Additional Medical History CANCER Current History The patient was intubated from 08/23/2022 to 09/03/2022. Social History Home: Single Level Current Living Status: Other Family ADL-Prior Level of Function SCALE: Activities may be completed with or without assistive devices. 5-Jebcivkqoe-mwdibjd completes the activity by him/herself with no assistance from a helper. 5-Set-up or Clean-up Assistance-helper sets up or cleans up; patient completes activity. [place] assists only prior to or following the activity. 4-Supervision or Touching Assistance-helper provides verbal cues and/or touching/steadying and/or contact guard assistance as patient completes activity. Assistance may be provided throughout the activity or intermittently. 3-Partial/Moderate Assistance-helper does LESS THAN HALF the effort. [place] lifts, holds or supports trunk or limbs, but provides less than half the effort. 2-Substantial/Maximal Assistance-helper does MORE THAN HALF the effort. [place] lifts or holds trunk or limbs and provides more than half the effort. 6-Uewcgbonf-qvigjc does ALL the effort. Patient does none of the effort to complete the activity. Or, the assistance of 2 or more helpers is required for the patient to complete the activity. If activity was not attempted, code reason: 7-Patient Refused. 9-Not Applicable-not attempted and the patient did not perform the activity before the current illness, exacerbation or injury. 10-Not Attempted due to Environmental Limitations-(lack of equipment, weather restraints, etc.). 88-Not Attempted due to Medical Conditions or Safety Concerns. Self Care: Independent Functional Cognition: Independent OT Current Status Subjective Patient responds in whisper. agreeable to OT Mental Status/Objective Patient Orientation: Person, Place, Situation Attachments: IV, Oxygen, PEG Tube, SCD's, Telemetry Current Upper Extremity ROM AROM in supine WFLS Upper Extremity Strength +3/5 BUE grossly ADL-Treatment Eating (QC): 88 Oral Hygiene (QC): 1 Shower/Bathe Self (QC): 88 Upper Body Dressing (QC): 2 Lower Body Dressing (QC): 1 On/Off Footwear (QC): 1 Toileting Hygiene (QC): 1 Education OT Patient Education: Progress toward Goal/Update tx plan, Purpose of tx/functional activities, Reviewed precautions, Rehab process, Safety issues Teaching Recipient: Patient Teaching Methods: Demonstration Response to Teaching: Verbalize Understanding, Reinforcement Needed OT Vice President Planning Goals [facility] Goals Eating (QC): 4 Oral Hygiene (QC): 4 Toileting Hygiene (QC): 4 Shower/Bathe Self (QC): 4 Upper Body Dressing (QC): 4 Lower Body Dressing (QC): 4 On/Off Footwear (QC): 4 1=Demonstrate adherence to instructed precautions during ADL tasks. 2=Patient will verbalize/demonstrate understanding of assistive devices/modifications for ADL. 3=Patient will improve strength/tolerance for activity to enable patient to perform ADL's. OT Education/Plan Problem List/Assessment Assessment: Decreased Activ Tolerance, Decreased Safety Aware, Decreased UE Strength, Dependent Transfers, Impaired Funct Balance, Impaired Self-Care Skills Discharge Recommendations Plan/Recommendations: Continue POC Therapy Discharge Recommendati: Post Acute OT Treatment Plan/Plan of Care Patient would benefit from OT for education, treatment and training to promote independence in ADL's, mobility, safety and/or upper extremity function for ADL's. Plan of Care: ADL Retraining, Cognitive Retraining, Functional Mobility, Group Exercise/Act as Ind, UE Funct Exercise/Act Treatment Duration: Sep 11, 2022 Frequency: 3 times per week (3-5 times per week) Estimated Hrs Per Day: .25 hour per day Rehab Potential: Guarded Time Start Time: 15:00 Stop Time: 15:23 DATE: Sep 07, 2022 Total Time Billed (hr/min): 23 Billed Treatment Time EVH, EX 1 23 min HOLLIE DENSON OT Sep 07, 2022 15:36
[2022-09-07 16:00] VITALS: BP 159/71
--- NOTE | 2022-09-07 16:12 | Diagnostic Imaging Report ---
INDICATION: Nasogastric tube placement. TECHNIQUE: Single view chest at 3:52 PM. CORRELATION STUDY: 09/01/2022. FINDINGS: Interval extubation. Orogastric tube is present which appears to pass below the left diaphragm and edge of the film. This likely extends into the body of the stomach. A right-sided central line tip over the SVC has been placed since the prior exam. The left IJ central line has been removed. The heart size, mediastinum, and vasculature are enlarged and prominent, appearing increased from prior exam. Bilateral particularly basilar opacities are likely a combination of effusion along with atelectasis, infiltrate, and/or edema have also worsened. IMPRESSION: 1. Interval extubation with presence of a new right upper extremity central line as well as presence of a gastric tube. Removal of the left IJ central line. 2. There appears to be increasing severity of edema from prior exam. Superimposed opacities at the lung bases is likely underlying effusion along with atelectasis, infiltrate, and/or edema at both lung bases. This has adversely changed from prior exam. Dictated by: Dictated on workstation # [id number]
[2022-09-07] MEDS ORDERED: FUROSEMIDE 40 MG/4 ML INJ (LASIX) IVP NR (17:00)
[2022-09-07 19:24] VITALS: BP 149/67
--- NOTE | 2022-09-07 19:30 | Progress Note ---
Subjective Subjective/Events-last exam Patient able to whisper answers. States that she is feeling better. Still NPO. Review of Systems General: Fatigue, Malaise HEENT: Dysphasia Pulmonary: No Dyspnea Cardiovascular: No: Chest Pain, Palpitations Gastrointestinal: Abdominal Pain; No: Nausea, Vomiting Neurological: Weakness, Incoordination Objective Exam Last Set of Vital Signs Vital Signs Date Time Temp Pulse Resp B/P (MAP) Pulse Ox O2 Delivery O2 Flow Rate FiO2 09/07/22 16:00 36.9 99 18 159/71 (100) 90 High Flow N/C 3.00 09/03/22 14:25 25 Capillary Refill : Less Than 3 Seconds I&O Intake and Output 09/07/22 00:00 Intake Total 350 ml Output Total 1230 ml Balance -880 ml Intake Oral 0 ml IV Total 350 ml Output Urine Total 1225 ml Drainage Total 5 ml General: Alert, No Acute Distress Lungs: Other (Diffuse wheezing and basilar crackles) Heart: Regular Rate, No Murmurs Abdomen: Soft, Other (wound vac in place) Neuro: Other (whisper speech, appropriate answers) Results/Procedures Lab Laboratory Tests 09/06/22 23:17: Glucometer 90 09/07/22 04:15: White Blood Count 8.7, Red Blood Count 3.84, Hemoglobin 9.5L, Hematocrit 32L, M steven Corpuscular Volume 83, Mean Corpuscular Hemoglobin 25, Mean Corpuscular Hemoglobin Concent 30L, Red Cell Distribution Width 25.2H, Platelet Count 539H, Mean Platelet Volume 9.4, Immature Granulocyte % (Auto) 1, Neutrophils (%) (Auto) 70, Lymphocytes (%) (Auto) 11L, Monocytes (%) (Auto) 13H, Eosinophils (%) (Auto) 5, Basophils (%) (Auto) 1, Neutrophils # (Auto) 6.1, Lymphocytes # (Auto) 1.0, Monocytes # (Auto) 1.1H, Eosinophils # (Auto) 0.5H, Basophils # (Auto) 0.1, Immature Granulocyte # (Auto) 0.1, Sodium Level 148H, Potassium Level 3.5L, Chloride Level 114H, Carbon Dioxide Level 24, Anion Gap 10, Blood Urea Nitrogen 21H, Creatinine 0.66, Estimat Glomerular Filtration Rate 90, BUN/Creatinine Ratio 32, Glucose Level 98, Calcium Level 8.8, Corrected Calcium 10.2H, Phosphorus Level 3.1, Magnesium Level 1.8, Total Bilirubin 0.4, Aspartate Amino Transf (AST/SGOT) 20, Alanine Aminotransferase (ALT/SGPT) 20, Alkaline Phosphatase 49, Total Protein 5.1L, Albumin 2.3L 09/07/22 12:25: Glucometer 102 09/07/22 13:16: Glucometer 108 09/07/22 17:48: Glucometer 139H Microbiology 09/02/22 Catheter Tip Culture - Final, Complete No growth 09/02/22 Gram Stain - Final, Complete 09/02/22 Wound Culture - Final, Complete Pseudomonas aeruginosa YEAST 08/23/22 Gram Stain - Final, Complete 08/23/22 Sputum Culture - Final, Complete Pseudomonas aeruginosa Mixed Bacterial Maida 08/22/22 Urine Culture - Final, Complete NO GROWTH Assessment/Plan Assessment/Plan (1) Sepsis Status: Resolved Assessment & Plan: Moved to ICU, received IVF boluses, remained hypotensive and started on norepinephrine. Blood cx with gram pos cocci. Continued on clindamycin and gentamicin. 08/24- worsening in spite of surgical repair, change antibiotics to meropnem to avoid nephrotoxicity. Remaining tachycardic and hypotensive, now with decreasing urine output as well. Albumin ordered per [facility] ICU, appreciate recommendations. 08/25- slight improvement in renal function and heart rate, continue meropenem and vasopressin, titrate as able. Remains on ventilator, on 30% FiO2. 09/06: Extubated over the weekend, wound culture pending, off antibiotics other then antifungals, spoke with Frieda and wound is still growing psuedomonas, Meropenum restarted 09/07: HDS, will transfer to 4th floor Qualifiers: (2) Dysphasia Status: Acute Assessment & Plan: 09/06: Speech out today but will be back tomorrow, patient has failed bedside swallow, continue NPO status 09/07: Speech working with patient today (3) S/P colon resection Status: Acute Assessment & Plan: Surgery following, appreciate recommendations. To OR for anastomotic leak repair on 08/23 (4) Acute kidney injury Status: Resolved Assessment & Plan: Acute on chronic, suspect secondary to sepsis. IVF and norepi as above as well as treating underlying infection. Monitor closely. 08/24- worsening, but as of yet potassium remains normal. Treating infection with antibiotic change as above, continue IVF and norepinephrine. 08/25- Nephrology consulted last night, anticipated need for transfer if UOP persistently decreased, but has improved this am and creatinine slightly improved also. Appreciate Nephrology recommendations. (5) Hyperphosphatemia Status: Resolved Assessment & Plan: 08/24 normalized. (6) Colon cancer Assessment & Plan: s/p resection as above. 09/07: will need to establish with oncology after d/c (7) GERD (gastroesophageal reflux disease) Status: Chronic (8) Seizure disorder Status: Chronic Assessment & Plan: On IV Keppra (9) Hypertension Status: Chronic Assessment & Plan: Currently hypotensive 09/07: Will continue to monitor may need to restart home meds now that sepsis is resolved Qualifiers: Qualified Codes: I10 - Essential (primary) hypertension (10) Alzheimer disease Status: Chronic (11) CKD (chronic kidney disease) Status: Chronic Qualifiers: Qualified Codes: N18.31 - Chronic kidney disease, stage 3a (12) Anemia Status: Acute Assessment & Plan: Acute on chronic, suspect blood loss related to procedures and lab draws. s/p 1 unit PRBC 08/24 with improvement, but down below 7 again today, repeat transfusion. (13) Goals of care, counseling/discussion Status: Acute Assessment & Plan: 08/23 Critically ill, No family at bedside currently, when asked if she would want compressions and intubation, she did shake her head yes. 08/24 updated granddaughter/DPOA by phone this morning 09/07: Patient extubated over the weekend, will need SNF at discharge (14) DVT prophylaxis Status: Acute Assessment & Plan: heparin AMANDA ALLRED MD Sep 07, 2022 19:30
[2022-09-07] MEDS: DONEPEZIL 10 MG (ARICEPT) TAB PO SCH (20:50)
[2022-09-07] MEDS: PRAMIPEXOLE 0.125 MG (MIRAPEX) TABLET PO SCH (20:50)
[2022-09-08] VITALS (7 sets, daily range): BP systolic 137–168; BP diastolic 63–74
[2022-09-08] MEDS: ACETAMINOPHEN 500 MG TAB (TYLENOL) PO SCH ×3 (04:23→21:34)
[2022-09-08 04:56] LABS: BASOPHILS # (AUTO) 0.1 10^3/uL (0.0-0.1); BASOPHILS % (AUTO) 1 % (0-10); EOSINOPHILS # (AUTO) 0.7 10^3/uL (0.0-0.3); EOSINOPHILS % (AUTO) 7 % (0-10); HEMATOCRIT 31 % (35-52); HEMOGLOBIN 9.3 g/dL (11.5-16.0); LYMPHOCYTES # (AUTO) 1.1 10^3/uL (1.0-4.0); LYMPHOCYTES % (AUTO) 11 % (12-44); MEAN CORPUSCULAR HEMOGLOBIN 25 pg (25-34); MEAN CORPUSCULAR HGB CONC 30 g/dL (32-36); MEAN CORPUSCULAR VOLUME 83 fL (80-99); MEAN PLATELET VOLUME 9.7 fL (9.0-12.2); MONOCYTES # (AUTO) 1.1 10^3/uL (0.0-1.0); MONOCYTES % (AUTO) 12 % (0-12); NEUTROPHILS # (AUTO) 6.3 10^3/uL (1.8-7.8); NEUTROPHILS % (AUTO) 68 % (42-75); PLATELET COUNT 461 10^3/uL (130-400); WHITE BLOOD COUNT 9.3 10^3/uL (4.3-11.0)
[2022-09-08 05:08] LABS: ALBUMIN 2.4 GM/DL (3.2-4.5); POTASSIUM 3.6 MMOL/L (3.6-5.0)
[2022-09-08 05:09] LABS: CALCIUM 8.6 MG/DL (8.5-10.1)
[2022-09-08 05:12] LABS: BILIRUBIN,TOTAL 0.3 MG/DL (0.1-1.0)
[2022-09-08 05:13] LABS: PHOSPHORUS 2.9 MG/DL (2.3-4.7)
[2022-09-08 05:14] LABS: CREATININE SERUM 0.67 MG/DL (0.60-1.30)
[2022-09-08 05:17] LABS: MAGNESIUM 1.8 MG/DL (1.6-2.4)
[2022-09-08] MEDS: inSUlin ASPART (NovoLOG) 1 UNIT/0.01 ML (CHARGE PER UNIT) SC SCH ×4 (05:20→23:34)
--- NOTE | 2022-09-08 07:14 | Progress Note - Surgery ---
DARRON HIGGINS 09/08/22 0714: Subjective Date Seen by a Provider: Sep 08, 2022 Time Seen by a Provider: 06:50 Subjective/Events-last exam Patient is appearing stronger and able to carry a full conversation today. She complains of dry mouth and coughing up mucous as well as urinary frequency and occasional incontinence. She denies abdominal pain as well as SOB or chest pain, and says that her NG tube is not bothering her at the moment. Per nursing, there has been no fluid in RICCARDO drain since 2 pm yesterday; the fluid that is present this morning is serous appearing. There has been no output from NG tube. She is on 3.00 L of supplemental oxygen by nasal canula at this time. Per speech therapy she can still only tolerate ice chips but her speech is improving and she is able to sunction herself. They reevaluating her today. Review of Systems General: Fatigue Pulmonary: No Dyspnea; Cough (intermittent, producing mucous) Cardiovascular: No: Chest Pain Gastrointestinal: No: Nausea, Vomiting, Abdominal Pain Genitourinary: Frequency, Incontinence (minimal) Objective Exam Vital Signs Date Time Temp Pulse Resp B/P (MAP) Pulse Ox O2 Delivery O2 Flow Rate FiO2 09/08/22 06:48 153 09/08/22 05:00 36.9 98 18 157/74 (101) 95 High Flow N/C 3.00 09/08/22 01:00 96 09/08/22 00:00 35.3 94 20 156/70 (98) 96 High Flow N/C 3.00 09/07/22 21:00 Nasal Cannula 3.00 09/07/22 20:33 96 High Flow N/C 2.00 09/07/22 19:24 36.7 110 18 149/67 (94) 96 High Flow N/C 3.00 09/07/22 19:00 111 09/07/22 16:00 36.9 99 18 159/71 (100) 90 High Flow N/C 3.00 09/07/22 13:20 84 09/07/22 12:00 36.7 109 18 155/77 (103) 94 High Flow N/C 3.00 09/07/22 10:23 107 09/07/22 10:00 103 12 147/74 (98) 100 Nasal Cannula 2.00 09/07/22 09:00 89 13 141/69 (93) 99 Nasal Cannula 2.00 09/07/22 08:04 36.9 09/07/22 08:00 102 16 149/73 (98) 95 Nasal Cannula 2.00 09/07/22 07:48 95 Nasal Cannula 2.00 09/07/22 07:29 105 I & O 09/08/22 07:00 Intake Total 680 ml Output Total 1463 ml Balance -783 ml Capillary Refill : Less Than 3 Seconds General Appearance: No Apparent Distress, Chronically ill HEENT: Other (dry oral mucosa ) Neck: Non Tender, Supple Respiratory: No Accessory Muscle Use, No Respiratory Distress, Crackles (??mi ld), Decreased Breath Sounds (at bases) Cardiovascular: Regular Rate, Rhythm Gastrointestinal: soft, tenderness (diffuse), other (right RICCARDO draining serous fluid) Extremity: Other (compression socks placed bilaterally) Neurologic/Psychiatric: Alert Skin: Normal Color, Warm/Dry Lymphatic: No Adenopathy (cervical) Results Lab Laboratory Tests 09/07/22 12:25: Glucometer 102 09/07/22 13:16: Glucometer 108 09/07/22 17:48: Glucometer 139H 09/07/22 23:59: Glucometer 103 09/08/22 04:50: White Blood Count 9.3, Red Blood Count 3.76L, Hemoglobin 9.3L, Hematocrit 31L, Mean Corpuscular Volume 83, Mean Corpuscular Hemoglobin 25, Mean Corpuscular Hemoglobin Concent 30L, Red Cell Distribution Width 25.2H, Platelet Count 461H, Mean Platelet Volume 9.7, Immature Granulocyte % (Auto) 1, Neutrophils (%) (Auto) 68, Lymphocytes (%) (Auto) 11L, Monocytes (%) (Auto) 12, Eosinophils (%) (Auto) 7, Basophils (%) (Auto) 1, Neutrophils # (Auto) 6.3, Lymphocytes # (Auto) 1.1, Monocytes # (Auto) 1.1H, Eosinophils # (Auto) 0.7H, Basophils # (Auto) 0.1, Immature Granulocyte # (Auto) 0.1, Sodium Level 143, Potassium Level 3.6, Ch [place]or[place] Level 109H, Carbon Dioxide Level 27, Anion Gap 7, Blood Urea Nitrogen 19H , Creatinine 0.67, Estimat Glomerular Filtration Rate 90, BUN/Creatinine Ratio 28, Glucose Level 130H, Calcium Level 8.6, Corrected Calcium 9.9, Phosphorus Level 2.9, Magnesium Level 1.8, Total Bilirubin 0.3, Aspartate Amino Transf (AST/SGOT) 37H, Alanine Aminotransferase (ALT/SGPT) 20, Alkaline Phosphatase 51, Total Protein 5.0L, Albumin 2.4L Microbiology 09/02/22 Catheter Tip Culture - Final, Complete No growth 09/02/22 Gram Stain - Final, Complete 09/02/22 Wound Culture - Final, Complete Pseudomonas aeruginosa YEAST 08/23/22 Gram Stain - Final, Complete 08/23/22 Sputum Culture - Final, Complete Pseudomonas aeruginosa Mixed Bacterial [place] 08/22/22 Urine Culture - Final, Complete NO GROWTH Assessment/Plan Assessment/Plan Assessment/Plan Anemia - stable Hypotension - resolved and off pressors S/P Laparoscopic hand assisted right hemicolectomy (08/18) S/P Diagnostic lap with abd washout and colon resection and re-anastamosis (08/23) Leukocytosis - resolved Thrombocythemia - improving Hypertension continue fluconazole therapy, continue pain medication, continue IVF continue to monitor Hgb Need to get RT to aggressively treat lungs Pt transferred to med-surg today CHITRALISSETKOURTNEY B DO 09/08/22 1423: Subjective Time Seen by a Provider: 12:19 Subjective/Events-last exam Pt seen and examined, eating some ice. Nurse stated speech therapy still does not want her to eat. She did get tube feeding by gravity without difficulty. She is able to talk now and carry on conversation. Review of Systems General: Fatigue Pulmonary: No Dyspnea, No Cough (intermittent, producing mucous) Cardiovascular: No: Chest Pain Gastrointestinal: No: Nausea, Vomiting, Abdominal Pain Objective Exam General Appearance: No Apparent Distress, Chronically ill HEENT: Other (dry oral mucosa, NGT in place) Respiratory: No Accessory Muscle Use, No Respiratory Distress, Crackles (??mild), Decreased Breath Sounds (at bases) Cardiovascular: Regular Rate, Rhythm Gastrointestinal: soft, tenderness (diffuse), other (right RICCARDO draining serous fluid, Wound VAC in place) Extremity: Other (compression socks placed bilaterally) Neurologic/Psychiatric: Alert Assessment/Plan Assessment/Plan Assessment/Plan Anemia - stable Hypotension - resolved and off pressors S/P Laparoscopic hand assisted right hemicolectomy (08/18) S/P Diagnostic lap with abd washout and colon resection and re-anastamosis (08/23) Leukocytosis - resolved Thrombocythemia - improving Hypertension continue fluconazole therapy, continue pain medication, continue IVF continue to monitor Hgb Need to get RT to aggressively treat lungs Pt transferred to med-surg today Supervisory-Addendum Brief Verification & Attestation Participated in pt care: history, MDM, physical Personally performed: exam, history, MDM, supervision of care Care discussed with: Medical Student Procedures: n/a Verification and Attestation of Medical Student E/M Service A medical student performed and documented this service. I then reviewed and verified all information documented by the medical student and made modifications to such information, when appropriate. I personally performed a physical exam, medical decision making and then discussed any differences between the notes and made revisions as necessary to create one note. Kourtney Aragon , 09/08/22 , 14:23 DARRON HIGGINS Sep 08, 2022 07:14 KOURTNEY ARAGON DO Sep 08, 2022 14:23
[2022-09-08] MEDS: RT-ALBUTEROL/IPRATROPIUM 3 ML (DUONEB) VIAL INH SCH ×2 (07:38→20:40)
[2022-09-08] MEDS: FLUCONAZOLE 100 MG/50 ML 50 ML IV SCH (08:39)
[2022-09-08] MEDS: PANTOPRAZOLE 40 MG (PROTONIX) VIAL IVP SCH (08:44)
[2022-09-08] MEDS: MICONAZOLE 2% POWDER (DESENEX AF) 90 GM TOP SCH ×2 (08:45→21:34)
[2022-09-08] MEDS: lisINopril 20 MG (PRINIVIL) TABLET PO SCH (08:45)
[2022-09-08] MEDS: ENOXAPARIN 40 MG/0.4 ML (LOVENOX) SYR SC SCH (08:45)
[2022-09-08] MEDS: OXYBUTYNIN (DITROPAN) 5 MG TAB PO SCH ×2 (08:45→21:34)
[2022-09-08] MEDS: risperiDONE 0.5 MG (RisperDAL) TABLET PO SCH ×2 (08:45→21:34)
[2022-09-08] MEDS: VITAMIN D3 25 MCG (1,000 UNITS) TABLET PO SCH (08:45)
[2022-09-08] MEDS: levETIRAcetam 1000 mg/NS 100ml IVPB IV SCH ×2 (08:48→21:33)
[2022-09-08] MEDS: morphine INJ 4 MG/ML 1 ML (VIAL/SYRINGE) IVP PRN (09:26)
--- NOTE | 2022-09-08 09:40 | Occupational Ther Daily Note ---
OT Current Status-Daily Note Subjective On arrival OT assisted in bed mobility and UE strength to hold position for BM hygiene w/ nursing staff Mental Status/Objective Patient Orientation: Situation Attachments: IV, NG Tube, Oxygen, SCD's, Telemetry, Other-See Comments (wound vac) ADL-Treatment Therapy Code Descriptions/Definitions Functional Edwards Measure: 0=Not Assessed/NA 4=Minimal Assistance 1=Total Assistance 5=Supervision or Setup 2=Maximal Assistance 6=Modified Edwards 3=Moderate Assistance 7=Complete IndependenceSCALE: Activities may be completed with or without assistive devices. 6-Beocrifwaj-idsoiik completes the activity by him/herself with no assistance from a helper. 5-Set-up or Clean-up Assistance-helper sets up or cleans up; patient completes activity. [place] assists only prior to or following the activity. 4-Supervision or Touching Assistance-helper provides verbal cues and/or touching/steadying and/or contact guard assistance as patient completes activity. Assistance may be provided throughout the activity or intermittently. 3-Partial/Moderate Assistance-helper does LESS THAN HALF the effort. [place] lifts, holds or supports trunk or limbs, but provides less than half the effort. 2-Substantial/Maximal Assistance-helper does MORE THAN HALF the effort. [place] lifts or holds trunk or limbs and provides more than half the effort. 1-Fmkcchrvn-palpbl does ALL the effort. Patient does none of the effort to complete the activity. Or, the assistance of 2 or more helpers is required for the patient to complete the activity. If activity was not attempted, code reason: 7-Patient Refused. 9-Not Applicable-not attempted and the patient did not perform the activity before the current illness, exacerbation or injury. 10-Not Attempted due to Environmental Limitations-(lack of equipment, weather restraints, etc.). 88-Not Attempted due to Medical Conditions or Safety Concerns. Eating (QC): 88 (sponge swabs) Oral Hygiene (QC): 88 Shower/Bathe Self (QC): 88 Upper Body Dressing (QC): 3 Lower Body Dressing (QC): 1 On/Off Footwear: 1 Toileting Hygiene (QC): 1 Toilet Transfer (QC): 88 Patient in tachy sinus w/ nurse present, call from telemetry during session, OT notified PT to hold Education OT Patient Education: Correct positioning, Modified ADL techniques, Reviewed precautions, Rehab process, Safety issues Teaching Recipient: Patient Teaching Methods: Demonstration, Discussion Response to Teaching: Verbalize Understanding, Reinforcement Needed OT Tank Processor Goals Longterm Goals Eating (QC): 4 Oral Hygiene (QC): 4 Toileting Hygiene (QC): 4 Shower/Bathe Self (QC): 4 Upper Body Dressing (QC): 4 Lower Body Dressing (QC): 4 On/Off Footwear (QC): 4 1=Demonstrate adherence to instructed precautions during ADL tasks. 2=Patient will verbalize/demonstrate understanding of assistive devices/modifications for ADL. 3=Patient will improve strength/tolerance for activity to enable patient to perform ADL's. OT Education/Plan Discharge Recommendations Plan/Recommendations: Continue POC Treatment Plan/Plan of Care Treatment,Training & Education: Yes Patient would benefit from OT for education, treatment and training to promote independence in ADL's, mobility, safety and/or upper extremity function for ADL's. Plan of Care: ADL Retraining, Cognitive Retraining, Functional Mobility, Group Exercise/Act as Ind, UE Funct Exercise/Act Treatment Duration: Sep 11, 2022 Frequency: 3 times per week (3-5 times per week) Estimated Hrs Per Day: .25 hour per day Rehab Potential: Guarded Patient set up for oral spnge use, self suction, call lights and warm blanket, Nurse remain n room, wound nurse assisting Time Start Time: 09:00 Stop Time: 09:32 DATE: Sep 08, 2022 Total Time Billed (hr/min): 32 Billed Treatment Time ADL 1, EX 1 HOLLIE DENSON OT Sep 08, 2022 09:40
[2022-09-08] MEDS: meTOprolol 5 MG/5 ML (LOPRESSOR) VIAL IV PRN (10:12)
[2022-09-08] MEDS: HYPOCHLOROUS ACID/NaCl (VASHE) 250 ML IR PRN (10:23)
--- NOTE | 2022-09-08 12:09 | Speech Therapy Daily Note ---
Speech Daily Progress Note Subjective Date Seen by Provider: Sep 08, 2022 Time Seen by Provider: 10:50 The patient was lying in bed, sleeping, upon entrance to her room by the clinician. The patient woke easily to a verbal greeting from the clinician and was agreeable to participation in the dysphagia treatment session. The patient was seated upright in bed for safe swallowing position. The patient is receiving 2l supplemental oxygen via nasal cannula and has a NG tube in place at this time. Objective The patient participates appropriately in structured conversation, displaying improved strength to her vocal quality on this date. The patient holds her [place] and frequently self-suctions her oral cavity. The patient is provided five ice chips, ten teaspoons of water, and five teaspoons of applesauce. The patient fatigues extremely quickly, requesting rest breaks following three ice chips, four teaspoons of water, and three teaspoons of applesauce. The limited P.O. intake required 30 minutes. The patient displayed a delayed cough following trials five and trial seven of teaspoons of water characterized as a rigorous, cough with self-suction by the patient. No overt s/s of suspected aspiration were displayed with ice chips or puree trials. At this time, the patient is unable to draw bolus material from a straw which may be secondary to reduced velopharyngeal closure as the NG tube is eliminating a complete seal. The patient frequently closes her eyes and displays increased respiratory effort throughout limited P.O. trials. Following the fifth trial of puree, the patient requested P.O. trials to end. As described above, the patient's fatigue limited multiple, prolonged P.O. trials. Following P.O. trials, the patient was reclined to 30 degrees due to the presence of the NG tube. The clinician discussed the patient's overall fatigue and how the fatigue places her at an increased risk for aspiration with P.O. intake. Additionally, the patient demonstrated an effortful swallow, with the patient displaying the swallowing exercise immediately following. The patient was encouraged to continue practicing the effortful swallowing exercise to improve rehabilitation of the oropharyngeal swallowing muscles. Recommendations: - The patient should continued to receive her primary nutrition, hydration, and medication via NG tube. - Excellent and frequent oral care to be provided to reduce the transfer of oral bacteria to the lungs should aspiration of secretions be experienced. - Following excellent oral care, ice chips (sparingly, three to five per hour) to aid in oral comfort and the rehabilitation of the oropharyngeal swallow response. - Continue effortful swallowing exercise, as able. - Speech pathology to continue daily evaluation of the oropharyngeal swallow response. To note, the patient is displaying positive progression towards oropharyngeal swallowing goals. At this time, the largest barrier towards P.O. intake appears to be the patient's fatigue. Assessment Assessment Current Status: Fair Progress Treatment Plan Continue Plan of Care Speech Short Term Goals Short Term Goals Short Term Goals 1. The patient will tolerate trials of the least restrictive consistency without s/s of suspected aspiration. Time Frame-STG: Five Days. Speech Shelter Goals Shelter Goals 1. The patient will tolerate the least restrictive diet consistency without s/s of suspected aspiration. Time Frame: Two Weeks. Speech-Plan Treatment Plan Speech Therapy Treatment Plan: Continue Plan of Care Treatment Duration: Sep 24, 2022 Frequency: 4 times per week Estimated Hrs Per Day: .25 hour per day Rehab Potential: Guarded Pt/Family Agrees to Plan: Yes Safety Risks/Education Teaching Recipient: Patient Teaching Methods: Demonstration, Discussion Response to Teaching: Verbalize Understanding, Return Demonstration, Reinforcement Needed Education Topics Provided: Effortful Swallowing Exercise, Safe Swallowing Precautions, Plan of Care Time Speech Therapy Time In: 10:50 Speech Therapy Time Out: 11:20 DATE: Sep 08, 2022 Total Billed Time: 30 Billed Treatment Time 1, MELINA GALLARDO Sep 08, 2022 12:09
--- NOTE | 2022-09-08 13:05 | Physical Therapy Progress Note ---
Therapy Progress Note Nurse requested hold on patient treatment this date to patient currently experiencing cardiac issues. Will attempt treatment again in the am. EDMUNDO GREGORY PT Sep 08, 2022 13:05
--- NOTE | 2022-09-08 17:05 | Progress Note ---
Subjective Subjective/Events-last exam Patient feeling better. Able to talk in complete sentences. Breathing more comfortable. Tolerating ice chips Review of Systems General: Fatigue, Malaise Pulmonary: Dyspnea Cardiovascular: Edema; No: Chest Pain, Palpitations Gastrointestinal: Abdominal Pain; No: Diarrhea, Constipation Neurological: Weakness, Incoordination Objective Exam Last Set of Vital Signs Vital Signs Date Time Temp Pulse Resp B/P (MAP) Pulse Ox O2 Delivery O2 Flow Rate FiO2 09/08/22 15:15 37.0 102 19 168/71 (103) 93 High Flow N/C 3.00 09/03/22 14:25 25 Capillary Refill : Less Than 3 Seconds I&O Intake and Output 09/08/22 00:00 Intake Total 1580 ml Output Total 1473 ml Balance 107 ml Intake Oral 0 ml IV Total 1550 ml Enteral Flush 30 ml Output Urine Total 1455 ml Drainage Total 18 ml General: Alert, No Acute Distress HEENT: Mucous Memb Moist/Elmer Lungs: Clear to Auscultation, Normal Air Movement Heart: Regular Rate, No Murmurs Abdomen: Soft, Other (mild ttp around wound vac) Extremities: Other (trace edema) Results/Procedures Lab Laboratory Tests 09/07/22 17:48: Glucometer 139H 09/07/22 23:59: Glucometer 103 09/08/22 04:50: White Blood Count 9.3, Red Blood Count 3.76L, Hemoglobin 9.3L, Hematocrit 31L, Mean Corpuscular Volume 83, Mean Corpuscular Hemoglobin 25, Mean Corpuscular Hemoglobin Concent 30L, Red Cell Distribution Width 25.2H, Platelet Count 461H, Mean Platelet Volume 9.7, Immature Granulocyte % (Auto) 1, Neutrophils (%) (Auto) 68, Lymphocytes (%) (Auto) 11L, Monocytes (%) (Auto) 12, Eosinophils (%) (Auto) 7, Basophils (%) (Auto) 1, Neutrophils # (Auto) 6.3, Lymphocytes # (Auto) 1.1, Monocytes # (Auto) 1.1H, Eosinophils # (Auto) 0.7H, Basophils # (Auto) 0.1, Immature Granulocyte # (Auto) 0.1, Sodium Level 143, Potassium Level 3.6, Chloride Level 109H, Carbon Dioxide Level 27, Anion Gap 7, Blood Urea Nitrogen 19H, Creatinine 0.67, Estimat Glomerular Filtration Rate 90, BUN/Creatinine Ratio 28, Glucose Level 130H, Calcium Level 8.6, Corrected Calcium 9.9, Phosphorus Level 2.9, Magnesium Level 1.8, Total Bilirubin 0.3, Aspartate Amino Transf (AST/SGOT) 37H, Alanine Aminotransferase (ALT/SGPT) 20, Alkaline Phosphatase 51, Total Protein 5.0L, Albumin 2.4L 09/08/22 11:21: Glucometer 99 Microbiology 09/02/22 Catheter Tip Culture - Final, Complete No growth 09/02/22 Gram Stain - Final, Complete 09/02/22 Wound Culture - Final, Complete Pseudomonas aeruginosa YEAST 08/23/22 Gram Stain - Final, Complete 08/23/22 Sputum Culture - Final, Complete Pseudomonas aeruginosa Mixed Bacterial Maida 08/22/22 Urine Culture - Final, Complete NO GROWTH Assessment/Plan Assessment/Plan (1) Sepsis Status: Resolved Assessment & Plan: Moved to ICU, received IVF boluses, remained hypotensive and started on norepinephrine. Blood cx with gram pos cocci. Continued on clindamycin and gentamicin. 08/24- worsening in spite of surgical repair, change antibiotics to meropnem to avoid nephrotoxicity. Remaining tachycardic and hypotensive, now with decreasing urine output as well. Albumin ordered per [facility], appreciate recommendations. 08/25- slight improvement in renal function and heart rate, continue meropenem and vasopressin, titrate as able. Remains on ventilator, on 30% FiO2. 09/06: Extubated over the weekend, wound culture pending, off antibiotics other then antifungals, spoke with Frieda and wound is still growing psuedomonas, Meropenum restarted 09/07: HDS, will transfer to 4th floor Qualifiers: (2) Dysphasia Status: Acute Assessment & Plan: 09/06: Speech out today but will be back tomorrow, patient has failed bedside swallow, continue NPO status 09/07: Speech working with patient today 09/08: tolerating ice chips, will advance as tolerated per speech (3) S/P colon resection Status: Acute Assessment & Plan: Surgery following, appreciate recommendations. To OR for anastomotic leak repair on 08/23 (4) Acute kidney injury Status: Resolved Assessment & Plan: Acute on chronic, suspect secondary to sepsis. IVF and norepi as above as well as treating underlying infection. Monitor closely. 08/24- worsening, but as of yet potassium remains normal. Treating infection with antibiotic change as above, continue IVF and norepinephrine. 08/25- Nephrology consulted last night, anticipated need for transfer if UOP persistently decreased, but has improved this am and creatinine slightly improved also. Appreciate Nephrology recommendations. (5) Hyperphosphatemia Status: Resolved Assessment & Plan: 08/24 normalized. (6) Colon cancer Assessment & Plan: s/p resection as above. 09/07: will need to establish with oncology after d/c (7) GERD (gastroesophageal reflux disease) Status: Chronic (8) Seizure disorder Status: Chronic Assessment & Plan: On IV Keppra (9) Hypertension Status: Chronic Assessment & Plan: Currently hypotensive 09/07: Will continue to monitor may need to restart home meds now that sepsis is resolved Qualifiers: Qualified Codes: I10 - Essential (primary) hypertension (10) Alzheimer disease Status: Chronic (11) CKD (chronic kidney disease) Status: Chronic Qualifiers: Qualified Codes: N18.31 - Chronic kidney disease, stage 3a (12) Anemia Status: Acute Assessment & Plan: Acute on chronic, suspect blood loss related to procedures and lab draws. s/p 1 unit PRBC 08/24 with improvement, but down below 7 again t amelia, repeat transfusion. (13) Goals of care, counseling/discussion Status: Acute Assessment & Plan: 08/23 Critically ill, No family at bedside currently, when asked if she would want compressions and intubation, she did shake her head yes. 08/24 updated granddaughter/DPOA by phone this morning 09/07: Patient extubated over the weekend, will need SNF at discharge (14) DVT prophylaxis Status: Acute Assessment & Plan: heparin AMANDA ALLRED MD Sep 08, 2022 17:05
[2022-09-08] MEDS: PRAMIPEXOLE 0.125 MG (MIRAPEX) TABLET PO SCH (21:34)
[2022-09-08] MEDS: DONEPEZIL 10 MG (ARICEPT) TAB PO SCH (21:34)
[2022-09-08] MEDS: D5W 1000 ML IV SOLUTION 1,000 ML IV SCH (21:45)
[2022-09-09] MEDS: D5W 1000 ML IV SOLUTION 1,000 ML IV SCH (01:03)
[2022-09-09] MEDS: meTOprolol 5 MG/5 ML (LOPRESSOR) VIAL IV PRN (01:05)
[2022-09-09 03:30] VITALS: BP 158/73
[2022-09-09 05:12] LABS: BASOPHILS % (AUTO) 0 % (0-10); EOSINOPHILS # (AUTO) 0.7 10^3/uL (0.0-0.3); EOSINOPHILS % (AUTO) 7 % (0-10); HEMATOCRIT 29 % (35-52); HEMOGLOBIN 8.9 g/dL (11.5-16.0); LYMPHOCYTES # (AUTO) 1.1 10^3/uL (1.0-4.0); LYMPHOCYTES % (AUTO) 12 % (12-44); MEAN CORPUSCULAR HEMOGLOBIN 25 pg (25-34); MEAN CORPUSCULAR HGB CONC 30 g/dL (32-36); MEAN CORPUSCULAR VOLUME 81 fL (80-99); MEAN PLATELET VOLUME 9.6 fL (9.0-12.2); MONOCYTES # (AUTO) 1.1 10^3/uL (0.0-1.0); MONOCYTES % (AUTO) 12 % (0-12); NEUTROPHILS # (AUTO) 6.6 10^3/uL (1.8-7.8); NEUTROPHILS % (AUTO) 68 % (42-75); PLATELET COUNT 417 10^3/uL (130-400); WHITE BLOOD COUNT 9.6 10^3/uL (4.3-11.0)
[2022-09-09] MEDS: inSUlin ASPART (NovoLOG) 1 UNIT/0.01 ML (CHARGE PER UNIT) SC SCH ×4 (05:30→23:47)
[2022-09-09 05:40] LABS: ALBUMIN 2.1 GM/DL (3.2-4.5); BILIRUBIN,TOTAL 0.4 MG/DL (0.1-1.0); CALCIUM 8.5 MG/DL (8.5-10.1); CREATININE SERUM 0.64 MG/DL (0.60-1.30); MAGNESIUM 1.6 MG/DL (1.6-2.4); PHOSPHORUS 2.6 MG/DL (2.3-4.7); POTASSIUM 3.3 MMOL/L (3.6-5.0); TOTAL PROTEIN 4.7 GM/DL (6.4-8.2)
--- NOTE | 2022-09-09 05:56 | Progress Note - Surgery ---
DARRON HIGGINS 09/09/22 0556: Subjective Subjective/Events-last exam She says she has not had an appetite since her NG tube was placed and that she gets "worn out" with ice chips . Per speech therapy notes, her swallowing is slowly improving but not to the extent that they feel the will tolerate oral feeds and and she tolerated 5-6 ice chips yesterday. She is receiving 4 NG tube feeds q6h. Her chief complaints at this time are dry mouth and coughing up mucous; she only has abdominal pain when she is moved by nursing. She an episode of tachycardia last night requiring lopressor; at this time her heart rate is stable and she denies palpitations, chest pain or SOB. Serous fluid is present right RICCARDO drain; approximately 8 mL overnight. Per nursing, she is still having decent urine and stool output; 350 mL overnight and 4-5 loose stools/day, respectively. Review of Systems HEENT: No Sore Throat Pulmonary: No Dyspnea; Cough Cardiovascular: No: Chest Pain, Palpitations Gastrointestinal: Abdominal Pain (mild, only when she is moved by staff); No: Nausea, Vomiting Genitourinary: Frequency Objective Exam Vital Signs Date Time Temp Pulse Resp B/P (MAP) Pulse Ox O2 Delivery O2 Flow Rate FiO2 09/09/22 03:30 36.1 85 20 158/73 (101) 97 High Flow N/C 3.00 09/09/22 01:05 120 09/09/22 01:00 101 09/08/22 23:30 36.9 107 20 137/63 (87) 94 High Flow N/C 3.00 09/08/22 21:00 Nasal Cannula 3.00 09/08/22 19:22 36.7 92 18 142/63 (89) 97 High Flow N/C 3.00 09/08/22 19:00 86 09/08/22 15:15 37.0 102 19 168/71 (103) 93 High Flow N/C 3.00 09/08/22 15:03 36.6 09/08/22 14:33 36.6 09/08/22 13:07 109 09/08/22 12:05 36.6 99 18 149/70 (96) 92 High Flow N/C 3.00 09/08/22 09:56 36.8 09/08/22 09:34 96 High Flow N/C 3.00 09/08/22 09:27 153 09/08/22 07:50 36.8 94 18 161/73 (102) 96 High Flow N/C 3.00 09/08/22 07:40 96 High Flow N/C 3.00 09/08/22 07:03 87 09/08/22 06:48 153 I & O 09/09/22 07:00 Intake Total 1000 ml Output Total 550 ml Balance 450 ml Capillary Refill : Less Than 3 Seconds General Appearance: No Apparent Distress, Chronically ill HEENT: Other (dry oral mucosa, NGT in place) Neck: Non Tender, Supple Respiratory: No Accessory Muscle Use, No Respiratory Distress, Crackles, Decreased Breath Sounds (at bases) Cardiovascular: Regular Rate, Rhythm Gastrointestinal: soft, tenderness (diffuse), other (right RICCARDO draining serous fluid, Wound VAC in place) Extremity: Other (compression socks placed bilaterally) Neurologic/Psychiatric: Alert Skin: Normal Color, Warm/Dry Lymphatic: No Adenopathy (cervical) Results Lab Laboratory Tests 09/08/22 11:21: Glucometer 99 09/08/22 17:22: Glucometer 108 09/08/22 23:30: Glucometer 146H 09/09/22 05:00: White Blood Count 9.6, Red Blood Count 3.62L, Hemoglobin 8.9L, Hematocrit 29L, Mean Corpuscular Volume 81, Mean Corpuscular Hemoglobin 25, Mean Corpuscular Hemoglobin Concent 30L, Red Cell Distribution Width 25.1H, Platelet Count 417H, Mean Platelet Volume 9.6, Immature Granulocyte % (Auto) 1, Neutrophils (%) (Auto) 68, Lymphocytes (%) (Auto) 12, Monocytes (%) (Auto) 12, Eosinophils (%) ( Auto) 7, Basophils (%) (Auto) 0, Neutrophils # (Auto) 6.6, Lymphocytes # (Auto) 1.1, Monocytes # (Auto) 1.1H, Eosinophils # (Auto) 0.7H, Basophils # (Auto) 0.0, Immature Granulocyte # (Auto) 0.1, Sodium Level 143, Potassium Level 3.3L, Chloride Level 108H, Carbon Dioxide Level 26, Anion Gap 9, Blood Urea Nitrogen 15, Creatinine 0.64, Estimat Glomerular Filtration Rate 91, BUN/Creatinine Ratio 23, Glucose Level 124H, Calcium Level 8.5, Corrected Calcium 10.0, Phosphorus Level 2.6, Magnesium Level 1.6, Total Bilirubin 0.4, Aspartate Amino Transf (AST/SGOT) 25, Alanine Aminotransferase (ALT/SGPT) 13, Alkaline Phosphatase 45, Total Protein 4.7L, Albumin 2.1L Microbiology 09/02/22 Catheter Tip Culture - Final, Complete No growth 09/02/22 Gram Stain - Final, Complete 09/02/22 Wound Culture - Final, Complete Pseudomonas aeruginosa YEAST 08/23/22 Gram Stain - Final, Complete 08/23/22 Sputum Culture - Final, Complete Pseudomonas aeruginosa Mixed Bacterial Maida 08/22/22 Urine Culture - Final, Complete NO GROWTH Assessment/Plan Assessment/Plan Assessment/Plan Dysphagia - slowly improving, able to tolerate 5-6 ice chips during speech therapy S/P Laparoscopic hand assisted right hemicolectomy (08/18) S/P Diagnostic lap with abd washout and colon resection and re-anastamosis (08/23) Hypertension Anemia - stable Leukocytosis - resolved Hypotension - resolved and off pressors Thrombocythemia - improving Advanced diet as tolerated by speech continue fluconazole therapy, continue pain medication, continue IVF Need to get RT to aggressively treat lungs KOURTNEY ARAGON DO 09/09/22 1515: Subjective Time Seen by a Provider: 12:46 Subjective/Events-last exam Pt seen and examined, no new complaints she is still not able to eat but TF are going smoothly. Review of Systems Pulmonary: No Dyspnea; Cough Cardiovascular: No: Chest Pain, Palpitations Gastrointestinal: Abdominal Pain (mild, only when she is moved by staff); No: Nausea, Vomiting Genitourinary: Frequency Objective Exam General Appearance: No Apparent Distress, Chronically ill HEENT: Other (dry oral mucosa, NGT in place) Neck: Non Tender, Supple Respiratory: No Accessory Muscle Use, No Respiratory Distress, Crackles, Decreased Breath Sounds (at bases) Cardiovascular: Regular Rate, Rhythm Gastrointestinal: soft, tenderness (diffuse), other (right RICCARDO draining serous fluid, Wound VAC in place) Extremity: Other (compression socks placed bilaterally) Neurologic/Psychiatric: Alert Assessment/Plan Assessment/Plan Assessment/Plan Dysphagia - slowly improving, able to tolerate 5-6 ice chips during speech therapy S/P Laparoscopic hand assisted right hemicolectomy (08/18) S/P Diagnostic lap with abd washout and colon resection and re-anastamosis (08/23) Hypertension Anemia - stable Leukocytosis - resolved Hypotension - resolved and off pressors Thrombocythemia - improving Advanced diet as tolerated by speech continue fluconazole therapy, continue pain medication, continue IVF Need to get RT to aggressively treat lungs Supervisory-Addendum Brief Verification & Attestation Participated in pt care: history, MDM, physical Personally performed: exam, history, MDM, supervision of care Care discussed with: Medical Student Procedures: n/a Verification and Attestation of Medical Student E/M Service A medical student performed and documented this service. I then reviewed and verified all information documented by the medical student and made modifications to such information, when appropriate. I personally performed a physical exam, medical decision making and then discussed any differences between the notes and made revisions as necessary to create one note. Kourtney Aragon , 09/09/22 , 15:14 DARRON HIGGINS Sep 09, 2022 05:56 KOURTNEY ARAGON DO Sep 09, 2022 15:15
[2022-09-09] MEDS: ACETAMINOPHEN 500 MG TAB (TYLENOL) PO SCH ×3 (06:08→21:56)
--- NOTE | 2022-09-09 06:22 | Progress Note - Hospitalist ---
Subjective HPI/CC On Admission Date Seen by Provider: Sep 09, 2022 Time Seen by Provider: 11:00 Roseann had a very reassuring SBT yesterday. She lasted 2 hours with SBT. No overnight events, off pressors, on precedex currently for planned ct. Granddaughter reports that she and her sister spoke with Roseann yesterday and affirmed that Roseann herself does not want to do Trach/peg. 2.4L out yesterday after lasix dose, though +565cc on balance. Subjective/Events-last exam No major issues Talks a little bit No pain reported Awaiting [facility] Review of Systems General: Fatigue, Malaise Objective Exam Vital Signs Vital Signs Date Time Temp Pulse Resp B/P (MAP) Pulse Ox O2 Delivery O2 Flow Rate FiO2 09/09/22 21:06 Nasal Cannula 2.00 09/09/22 19:44 37.0 91 20 156/81 (106) 94 09/03/22 14:25 25 Capillary Refill : Less Than 3 Seconds General Appearance: No Apparent Distress, WD/WN, Chronically ill Respiratory: Lungs Clear, Normal Breath Sounds Cardiovascular: Regular Rate, Rhythm Neurologic/Psychiatric: Alert Results/Procedures Lab Laboratory Tests 09/09/22 05:00 Patient resulted labs reviewed. 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
[2022-09-09] MEDS: RT-ALBUTEROL/IPRATROPIUM 3 ML (DUONEB) VIAL INH SCH ×2 (07:03→19:00)
[2022-09-09 08:22] VITALS: BP 158/69
[2022-09-09] MEDS: PANTOPRAZOLE 40 MG (PROTONIX) VIAL IVP SCH (08:24)
[2022-09-09] MEDS: VITAMIN D3 25 MCG (1,000 UNITS) TABLET PO SCH (08:24)
[2022-09-09] MEDS: ENOXAPARIN 40 MG/0.4 ML (LOVENOX) SYR SC SCH (08:24)
[2022-09-09] MEDS: OXYBUTYNIN (DITROPAN) 5 MG TAB PO SCH ×2 (08:24→20:38)
[2022-09-09] MEDS: lisINopril 20 MG (PRINIVIL) TABLET PO SCH (08:24)
[2022-09-09] MEDS: risperiDONE 0.5 MG (RisperDAL) TABLET PO SCH ×2 (08:24→20:38)
[2022-09-09] MEDS: FLUCONAZOLE 100 MG/50 ML 50 ML IV SCH (08:37)
[2022-09-09] MEDS: levETIRAcetam 1000 mg/NS 100ml IVPB IV SCH ×2 (08:37→20:44)
[2022-09-09] MEDS: MICONAZOLE 2% POWDER (DESENEX AF) 90 GM TOP SCH ×2 (08:38→20:49)
--- NOTE | 2022-09-09 10:51 | Speech Therapy Daily Note ---
Speech Daily Progress Note Subjective Date Seen by Provider: Sep 09, 2022 Time Seen by Provider: 09:00 The patient was lying in bed, sleeping with the lights off, upon entrance to the patient's room by the clinician. The patient woke with a verbal greeting from the clinician and was initially hesitant towards participation in the dysphagia treatment session ("shaking her head no"). With gentle verbal encouragement, the patient was agreeable to participation and was seated upright in her bed for safe swallowing position. The patient is receiving 2L supplemental oxygen via nasal cannula. The patient stated, "I feel sometimes my breathing is hard." The clinician requested additional information and if the patient was comfortable at this time. The patient stated she was not short of breath at this moment but "doesn't feel like enough is being done for it." and "isn't sure of the plan." The clinician shared the patient's concerns with the RN immediately following completion of the treatment session. Objective The patient displays a productive, rigorous cough prior to P.O. intake. Additionally, the patient utilizes the [place]auer to self-suction oral secretions. The patient presents with an aphonic vocal quality, attempting phonation with one word per breath. At this time, attempts at phonation appear fatiguing for the patient. Oral care was provided by the clinician and requested by the patient prior to P.O. intake. The patient was provided four ice chips (self-fed by patient) and nine teaspoons of applesauce (seven trials followed by a self-requested rest break of approximately twenty minutes, with two additional trials at the close of the treatment session). The patient does not display s/s of suspected aspiration with ice chips. The patient displayed an immediate, rigorous cough following two of nine trials of puree. The patient takes frequent rest breaks between P.O. trials, displaying increased respiratory effort throughout the session. Per patient, "I'm full, I just cannot do more." The effortful swallowing exercise was reviewed and demonstrated by the patient with direct modeling provided by the clinician. The patient was encouraged to practice the exercise throughout her downtime to build oropharyngeal musculature. The patient reports right foot pain which is shared with the RN at completion of the treatment session. At this time, the largest barriers towards diet advancement include respiratory strength, overall fatigue, and weakness. Continue with the current plan of care: Recommendations: - The patient should continued to receive her primary nutrition, hydration, and medication via NG tube. - Excellent and frequent oral care to be provided to reduce the transfer of oral bacteria to the lungs should aspiration of secretions be experienced. - Following excellent oral care, ice chips (sparingly, three to five per hour) to aid in oral comfort and the rehabilitation of the oropharyngeal swallow response. - Continue effortful swallowing exercise, as able. - Speech pathology to continue daily evaluation of the oropharyngeal swallow response. To note, the patient is displaying positive progression towards oropharyngeal swallowing goals. Assessment Assessment Current Status: Fair Progress Treatment Plan Continue Plan of Care Speech Short Term Goals Short Term Goals Short Term Goals 1. The patient will tolerate trials of the least restrictive consistency without s/s of suspected aspiration. Time Frame-STG: Five Days. Speech Penitentiary Goals Relations Coordinator Goals 1. The patient will tolerate the least restrictive diet consistency without s/s of suspected aspiration. Time Frame: Two Weeks. Speech-Plan Treatment Plan Speech Therapy Treatment Plan: Continue Plan of Care Treatment Duration: Sep 24, 2022 Frequency: 4 times per week Estimated Hrs Per Day: .25 hour per day Rehab Potential: Guarded Pt/Family Agrees to Plan: Yes Safety Risks/Education Teaching Recipient: Patient Teaching Methods: Handout, Discussion Response to Teaching: Return Demonstration, Reinforcement Needed Education Topics Provided: Safe Swallowing Precautions, Effortful Swallowing Exercise, Plan of Care Time Speech Therapy Time In: 09:00 Speech Therapy Time Out: 10:01 DATE: Sep 09, 2022 Total Billed Time: 61 Billed Treatment Time 1CLAIRE ELIZABETH Sep 09, 2022 10:51
[2022-09-09 11:40] VITALS: BP 155/66
--- NOTE | 2022-09-09 11:41 | Physical Therapy Daily Note ---
PT Daily Note-Current Subjective Patient agrees to exercises. Pain Section J - Health Conditions 1. Rarely or not at all 2. Occasionally 3. Frequently 4. Almost constantly 8. Unable to answer Pain Effect on Sleep: 2 Pain Interference with Therapy: 2 Pain Interference w/Day-to-Day: 2 Mental Status Patient Orientation: Person Attachments: Central Line, SCD's, Oxygen wound vac abdomen Transfers SCALE: Activities may be completed with or without assistive devices. 6-Hmrjnsblvw-hotqyvg completes the activity by him/herself with no assistance from a helper. 5-Set-up or Clean-up Assistance-helper sets up or cleans up; patient completes activity. [place] assists only prior to or following the activity. 4-Supervision or Touching Assistance-helper provides verbal cues and/or touching/steadying and/or contact guard assistance as patient completes activity. Assistance may be provided throughout the activity or intermittently. 3-Partial/Moderate Assistance-helper does LESS THAN HALF the effort. [place] lifts, holds or supports trunk or limbs, but provides less than half the effort. 2-Substantial/Maximal Assistance-helper does MORE THAN HALF the effort. [place] lifts or holds trunk or limbs and provides more than half the effort. 2-Kivibihov-okttfc does ALL the effort. Patient does none of the effort to comp lete the activity. Or, the assistance of 2 or more helpers is required for the patient to complete the activity. If activity was not attempted, code reason: 7-Patient Refused. 9-Not Applicable-not attempted and the patient did not perform the activity before the current illness, exacerbation or injury. 10-Not Attempted due to Environmental Limitations-(lack of equipment, weather restraints, etc.). 88-Not Attempted due to Medical Conditions or Safety Concerns. Weight Bearing Right Lower Extremity: Right Weight Bearing/Tolerated Left Lower Extremity: Left Weight Bearing/Tolerated Exercises Supine Ex: Ankle pumps, Quad Set, Heel Slides, Straight leg raise, Hip abd/add Supine Reps: 15 (x 2 sets AAROM bilaterally) Assessment Patient tolerates minimal activity on this date. Patient remains supine in bed. PT Short Term Goals Short Term Goals Time Frame: Sep 18, 2022 Roll Left & Right: 2 Sit to lyin Lying to sitting on side of be: 2 Sit to stand: 2 Chair/erd-jg-jmuhx transfer: 2 PT Snf Goals Body Shop Worker Goals PT Snf Goals Time Frame: Oct 09, 2022 Roll Left & Right (QC): 6 Sit to Lying (QC): 6 Lying-Sitting on Side/Bed(QC): 6 Sit to Stand (QC): 6 Chair/Woq-le-Ccovx Xfer(QC): 6 Toilet Transfer (QC): 6 Walk 10 feet (QC): 6 Walk 50ft with 2 Turns (QC): 6 Walk 150 ft (QC): 6 PT Plan Treatment/Plan Treatment Plan: Continue Plan of Care Treatment Plan: Bed Mobility, Education, Functional Activity Earlene, Functional Strength, Gait, Safety, Therapeutic Exercise, Transfers Treatment Duration: Oct 09, 2022 Frequency: 6 times per week Estimated Hrs Per Day: .25 hour per day Patient and/or Family Agrees t: Yes Time Time In: 1114 Time Out: 1125 DATE: Sep 09, 2022 Total Billed Treatment Time: 11 Total Billed Treatment 1 visit EX 11 min BRIGETTE FRANCISCO PT Sep 09, 2022 11:41
[2022-09-09 15:51] VITALS: BP 158/77
--- NOTE | 2022-09-09 16:16 | Occupational Ther Daily Note ---
OT Current Status-Daily Note Subjective Patient agreeable to OT, however reports needs line change and gown change. Mental Status/Objective Patient Orientation: Situation Attachments: IV, NG Tube ADL-Treatment Therapy Code Descriptions/Definitions Functional [place] Measure: 0=Not Assessed/NA 4=Minimal Assistance 1=Total Assistance 5=Supervision or Setup 2=Maximal Assistance 6=Modified [place] 3=Moderate Assistance 7=Complete IndependenceSCALE: Activities may be completed with or without assistive devices. 6-Pizdrdrrhp-cpcpfxy completes the activity by him/herself with no assistance from a helper. 5-Set-up or Clean-up Assistance-helper sets up or cleans up; patient completes a ctivity. [place] assists only prior to or following the activity. 4-Supervision or Touching Assistance-helper provides verbal cues and/or touching/steadying and/or contact guard assistance as patient completes activity. Assistance may be provided throughout the activity or intermittently. 3-Partial/Moderate Assistance-helper does LESS THAN HALF the effort. [place] lifts, holds or supports trunk or limbs, but provides less than half the effort. 2-Substantial/Maximal Assistance-helper does MORE THAN HALF the effort. [place] lifts or holds trunk or limbs and provides more than half the effort. 7-Nlmyqsjmk-oyzuyy does ALL the effort. Patient does none of the effort to complete the activity. Or, the assistance of 2 or more helpers is required for the patient to complete the activity. If activity was not attempted, code reason: 7-Patient Refused. 9-Not Applicable-not attempted and the patient did not perform the activity before the current illness, exacerbation or injury. 10-Not Attempted due to Environmental Limitations-(lack of equipment, weather restraints, etc.). 88-Not Attempted due to Medical Conditions or Safety Concerns. Eating (QC): 88 Oral Hygiene (QC): 2 Upper Body Dressing (QC): 3 Lower Body Dressing (QC): 1 On/Off Footwear: 1 Toileting Hygiene (QC): 1 Toilet Transfer (QC): 1 (bed rolling x2 person) Patein rolling in bed and change of linens and gown while supine and 30 reclined alters patient heart alarm and telemetry called nurse to monitor patient, RN reported to OT, OT ceased therapy and assisted patient to HOB supine position in bed assist of 2 with patient crossing BUE over chest. Education OT Patient Education: Correct positioning, Energy conservation, Reviewed precautions, Safety issues Teaching Recipient: Patient, Family Teaching Methods: Demonstration Response to Teaching: Verbalize Understanding, Reinforcement Needed OT Hyperbaric Technician Goals Hyperbaric Technician Goals Eating (QC): 4 Oral Hygiene (QC): 4 Toileting Hygiene (QC): 4 Shower/Bathe Self (QC): 4 Upper Body Dressing (QC): 4 Lower Body Dressing (QC): 4 On/Off Footwear (QC): 4 1=Demonstrate adherence to instructed precautions during ADL tasks. 2=Patient will verbalize/demonstrate understanding of assistive devices/modifications for ADL. 3=Patient will improve strength/tolerance for activity to enable patient to perform ADL's. OT Education/Plan Discharge Recommendations Plan/Recommendations: Continue POC (required frequent rest periods) Therapy Discharge Recommendati: Post Acute OT Treatment Plan/Plan of Care Treatment,Training & Education: Yes Patient would benefit from OT for education, treatment and training to promote independence in ADL's, mobility, safety and/or upper extremity function for ADL's. Plan of Care: ADL Retraining, Cognitive Retraining, Functional Mobility, Group Exercise/Act as Ind, UE Funct Exercise/Act Treatment Duration: Sep 11, 2022 Frequency: 3 times per week (3-5 times per week) Estimated Hrs Per Day: .25 hour per day Rehab Potential: Guarded Time Start Time: 13:40 Stop Time: 14:20 DATE: Sep 09, 2022 Total Time Billed (hr/min): 40 Billed Treatment Time ADL: 1, FA 2 40 min HOLLIE DENSON OT Sep 09, 2022 16:16
[2022-09-09 19:44] VITALS: BP 156/81
[2022-09-09] MEDS: PRAMIPEXOLE 0.125 MG (MIRAPEX) TABLET PO SCH (20:38)
[2022-09-09] MEDS: DONEPEZIL 10 MG (ARICEPT) TAB PO SCH (20:38)
[2022-09-09] MEDS: morphine INJ 4 MG/ML 1 ML (VIAL/SYRINGE) IVP PRN (22:00)
[2022-09-09 23:35] VITALS: BP 146/70
[2022-09-10] MEDS: D5W 1000 ML IV SOLUTION 1,000 ML IV SCH ×2 (00:03→19:29)
[2022-09-10 03:15] VITALS: BP 158/77
--- NOTE | 2022-09-10 05:47 | Progress Note - Hospitalist ---
Subjective HPI/CC On Admission Date Seen by Provider: Sep 10, 2022 Time Seen by Provider: 11:00 Roseann had a very reassuring SBT yesterday. She lasted 2 hours with SBT. No overnight events, off pressors, on precedex currently for planned ct. Granddaughter reports that she and her sister spoke with Roseann yesterday and affirmed that Roseann herself does not want to do Trach/peg. 2.4L out yesterday after lasix dose, though +565cc on balance. Subjective/Events-last exam No major issues Awaiting NHP Talking a lot more TF maintained Review of Systems General: Fatigue, Malaise Objective Exam Vital Signs Vital Signs Date Time Temp Pulse Resp B/P (MAP) Pulse Ox O2 Delivery O2 Flow Rate FiO2 09/10/22 21:02 93 High Flow N/C 2.00 09/10/22 19:21 88 09/10/22 19:16 37.6 18 146/67 (93) Capillary Refill : Less Than 3 Seconds General Appearance: No Apparent Distress, WD/WN, Chronically ill Respiratory: Lungs Clear, Normal Breath Sounds Cardiovascular: Regular Rate, Rhythm Neurologic/Psychiatric: Alert, Depressed Affect Results/Procedures Lab Laboratory Tests 09/10/22 06:28 Patient resulted labs reviewed. 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
[2022-09-10] MEDS: inSUlin ASPART (NovoLOG) 1 UNIT/0.01 ML (CHARGE PER UNIT) SC SCH ×3 (05:51→19:04)
[2022-09-10] MEDS: ACETAMINOPHEN 500 MG TAB (TYLENOL) PO SCH ×3 (06:13→22:40)
[2022-09-10 06:40] LABS: BASOPHILS # (AUTO) 0.1 10^3/uL (0.0-0.1); BASOPHILS % (AUTO) 1 % (0-10); EOSINOPHILS # (AUTO) 0.5 10^3/uL (0.0-0.3); EOSINOPHILS % (AUTO) 5 % (0-10); HEMATOCRIT 31 % (35-52); HEMOGLOBIN 9.5 g/dL (11.5-16.0); LYMPHOCYTES # (AUTO) 1.1 10^3/uL (1.0-4.0); LYMPHOCYTES % (AUTO) 11 % (12-44); MEAN CORPUSCULAR HEMOGLOBIN 25 pg (25-34); MEAN CORPUSCULAR HGB CONC 31 g/dL (32-36); MEAN CORPUSCULAR VOLUME 80 fL (80-99); MEAN PLATELET VOLUME 9.8 fL (9.0-12.2); MONOCYTES # (AUTO) 1.2 10^3/uL (0.0-1.0); MONOCYTES % (AUTO) 11 % (0-12); NEUTROPHILS # (AUTO) 7.6 10^3/uL (1.8-7.8); NEUTROPHILS % (AUTO) 72 % (42-75); PLATELET COUNT 407 10^3/uL (130-400); WHITE BLOOD COUNT 10.5 10^3/uL (4.3-11.0)
[2022-09-10 07:03] LABS: ALBUMIN 2.3 GM/DL (3.2-4.5); BILIRUBIN,TOTAL 0.5 MG/DL (0.1-1.0); CALCIUM 8.7 MG/DL (8.5-10.1); CREATININE SERUM 0.64 MG/DL (0.60-1.30); MAGNESIUM 1.6 MG/DL (1.6-2.4); PHOSPHORUS 2.2 MG/DL (2.3-4.7); POTASSIUM 3.2 MMOL/L (3.6-5.0); TOTAL PROTEIN 5.3 GM/DL (6.4-8.2)
[2022-09-10] MEDS: RT-ALBUTEROL/IPRATROPIUM 3 ML (DUONEB) VIAL INH SCH ×2 (07:20→21:02)
[2022-09-10 07:54] VITALS: BP 151/75
[2022-09-10] MEDS: morphine INJ 4 MG/ML 1 ML (VIAL/SYRINGE) IVP PRN ×2 (08:25→16:12)
[2022-09-10] MEDS: levETIRAcetam 1000 mg/NS 100ml IVPB IV SCH ×2 (08:25→22:33)
[2022-09-10] MEDS: lisINopril 20 MG (PRINIVIL) TABLET PO SCH (08:26)
[2022-09-10] MEDS: VITAMIN D3 25 MCG (1,000 UNITS) TABLET PO SCH (08:26)
[2022-09-10] MEDS: risperiDONE 0.5 MG (RisperDAL) TABLET PO SCH ×2 (08:26→22:33)
[2022-09-10] MEDS: ENOXAPARIN 40 MG/0.4 ML (LOVENOX) SYR SC SCH (08:26)
[2022-09-10] MEDS: PANTOPRAZOLE 40 MG (PROTONIX) VIAL IVP SCH (08:26)
[2022-09-10] MEDS: OXYBUTYNIN (DITROPAN) 5 MG TAB PO SCH ×2 (08:26→22:33)
--- NOTE | 2022-09-10 08:31 | Progress Note - Surgery ---
MANUEL SUN 09/10/22 0831: Subjective Date Seen by a Provider: Sep 10, 2022 Time Seen by a Provider: 08:25 Subjective/Events-last exam 76 F of admission continues to show signs of increasing strength and verbal communication. Pt was able to squeeze my hand and move upper and lower extremities against gravity. Was able to speak in 3-5 word sentences States she is in no pain this morning and was able to eat apple sauce yesterday evening w/o issues. Per speech, pt should continue to receive nutrition via NG tube but is progressing with oropharyngeal function. Pt denies any fever, chills, n/v, or CP. She does state that it continues to be difficult to take a deep breath with an associated cough. Review of Systems General: No Chills, No Night Sweats HEENT: No Head Aches; Dysphasia Pulmonary: No Dyspnea, No Cough Cardiovascular: No: Chest Pain, Palpitations Gastrointestinal: No: Nausea, Vomiting, Abdominal Pain Genitourinary: No Dysuria, No Frequency Musculoskeletal: No: neck pain, leg pain Neurological: Weakness; No: Confusion Objective Exam Vital Signs Date Time Temp Pulse Resp B/P (MAP) Pulse Ox O2 Delivery O2 Flow Rate FiO2 09/10/22 07:54 36.1 106 20 151/75 (100) 91 High Flow N/C 2.00 09/10/22 07:21 92 High Flow N/C 2.00 09/10/22 07:00 98 09/10/22 03:15 36.8 102 16 158/77 (104) 94 High Flow N/C 3.00 09/10/22 01:00 92 09/09/22 23:35 36.5 99 16 146/70 (95) High Flow N/C 3.00 09/09/22 21:06 Nasal Cannula 2.00 09/09/22 19:44 37.0 91 20 156/81 (106) 94 High Flow N/C 2.00 09/09/22 19:00 95 High Flow N/C 2.00 09/09/22 19:00 84 09/09/22 15:51 37.1 97 20 158/77 (104) 95 High Flow N/C 2.00 09/09/22 13:00 87 09/09/22 11:40 37.2 84 16 155/66 (95) 96 High Flow N/C 3.00 09/09/22 09:00 Nasal Cannula 2.00 I & O 09/10/22 07:00 Intake Total 2129 ml Output Total 1920 ml Balance 209 ml Capillary Refill : Less Than 3 Seconds General Appearance: No Apparent Distress, WD/WN, Chronically ill HEENT: PERRL/EOMI, Other (dry oral mucosa, NGT in place) Neck: Non Tender, Supple Respiratory: Lungs Clear, Normal Breath Sounds Cardiovascular: Regular Rate, Rhythm, No Murmur Peripheral Pulses: 2+ Dorsalis Pedis (R), 2+ Left Dors-Pedis (L), 2+ Radial Pulses (R), 2+ Radial Pulses (L) Gastrointestinal: normal bowel sounds, soft, other (right RICCARDO draining serous fluid, Wound VAC in place, dressings were being changed after encounter ) Extremity: No Calf Tenderness, Pedal Edema (1+ BL), Other (compression socks placed bilaterally) Neurologic/Psychiatric: Alert Skin: Normal Color, Warm/Dry Lymphatic: Other (no cervical or axillary LAD ) Results Lab Laboratory Tests 09/09/22 11:46: Glucometer 114H 09/09/22 17:45: Glucometer 101 09/09/22 23:39: Glucometer 126H 09/10/22 05:11: Glucometer 115H 09/10/22 06:28: White Blood Count 10.5, Red Blood Count 3.85, Hemoglobin 9.5L, Hematocrit 31L, Mean Corpuscular Volume 80, Mean Corpuscular Hemoglobin 25, Mean Corpuscular Hemoglobin Concent 31L, Red Cell Distribution Width 25.1H, Platelet Count 407H, Mean Platelet Volume 9.8, Immature Granulocyte % (Auto) 1, Neutrophils (%) (Auto) 72, Lymphocytes (%) (Auto) 11L, Monocytes (%) (Auto) 11, Eosinophils (%) (Auto) 5, Basophils (%) (Auto) 1, Neutrophils # (Auto) 7.6, Lymphocytes # (Auto) 1.1, Monocytes # (Auto) 1.2H, Eosinophils # (Auto) 0.5H, Basophils # (Auto) 0.1, Immature Granulocyte # (Auto) 0.1, Sodium Level 140, Potassium Level 3.2L, Chloride Level 104, Carbon Dioxide Level 27, Anion Gap 9, Blood Urea Nitrogen 13, Creatinine 0.64, Estimat Glomerular Filtration Rate 91, BUN/Creatinine Ratio 20, Glucose Level 123H, Calcium Level 8.7, Corrected Calcium 10.1, Phosphorus Level 2.2L, Magnesium Level 1.6, Total Bilirubin 0.5, Aspartate Amino Transf (AST/SGOT) 20, Alanine Aminotransferase (ALT/SGPT) 16, Alkaline Phosphatase 54, Total Protein 5.3L, Albumin 2.3L Microbiology 09/02/22 Catheter Tip Culture - Final, Complete No growth 09/02/22 Gram Stain - Final, Complete 09/02/22 Wound Culture - Final, Complete Pseudomonas aeruginosa YEAST 08/23/22 Gram Stain - Final, Complete 08/23/22 Sputum Culture - Final, Complete Pseudomonas aeruginosa Mixed Bacterial Maida 08/22/22 Urine Culture - Final, Complete NO GROWTH Assessment/Plan Assessment/Plan Assessment/Plan Dysphagia - continues to slowly improve, able to tolerate 5-6 ice chips during speech therapy, tolerated applesauce last night S/P Laparoscopic hand assisted right hemicolectomy (08/18) S/P Diagnostic lap with abd washout and colon resection and re-anastamosis (08/23) Hypertension- controlled Anemia - stable Leukocytosis - resolved Hypotension - resolved and off pressors Thrombocythemia - improving Advanced diet as tolerated by speech, still continue nutrition via NG tube continue fluconazole therapy, continue pain medication, continue IVF start breathing treatments, repeat CXR to access pleurel effusions Per SS, referral to [facility] has been made, continue to follow KOURTNEY ARAGON DO 09/10/22 1216: Subjective Time Seen by a Provider: 09:38 Subjective/Events-last exam Pt seen and examined, no new changes. Review of Systems General: No Chills, No Night Sweats Pulmonary: No Dyspnea, No Cough Cardiovascular: No: Chest Pain, Palpitations Gastrointestinal: No: Nausea, Vomiting, Abdominal Pain Objective Exam General Appearance: No Apparent Distress, Chronically ill HEENT: PERRL/EOMI, Other (dry oral mucosa, NGT in place) Respiratory: Lungs Clear, Normal Breath Sounds, No Accessory Muscle Use, No Respiratory Distress Cardiovascular: Regular Rate, Rhythm Gastrointestinal: normal bowel sounds, soft, other (right RICCARDO draining serous fluid, Wound VAC in place, dressings were being changed after encounter ) Extremity: Pedal Edema (1+ BL), Other (compression socks placed bilaterally) Assessment/Plan Assessment/Plan Assessment/Plan Dysphagia - continues to slowly improve, able to tolerate 5-6 ice chips during speech therapy, tolerated applesauce last night S/P Laparoscopic hand assisted right hemicolectomy (08/18) S/P Diagnostic lap with abd washout and colon resection and re-anastamosis (08/23) Hypertension- controlled Anemia - stable Leukocytosis - resolved Hypotension - resolved and off pressors Thrombocythemia - improving Advanced diet as tolerated by speech, still continue nutrition via NG tube continue fluconazole therapy, continue pain medication, continue IVF start breathing treatments, repeat CXR to access pleurel effusions Per SS, referral to [facility] has been made, continue to follow Supervisory-Addendum Brief Verification & Attestation Participated in pt care: history, MDM, physical Personally performed: exam, history, MDM, supervision of care Care discussed with: Medical Student Procedures: n/a Verification and Attestation of Medical Student E/M Service A medical student performed and documented this service. I then reviewed and verified all information documented by the medical student and made modifications to such information, when appropriate. I personally performed a physical exam, medical decision making and then discussed any differences genet een the notes and made revisions as necessary to create one note. Kourtney Aragon , 09/10/22 , 12:16 MANUEL SUN Sep 10, 2022 08:31 KOURTNEY ARAGON DO Sep 10, 2022 12:16
[2022-09-10] MEDS: MICONAZOLE 2% POWDER (DESENEX AF) 90 GM TOP SCH ×2 (08:36→22:33)
[2022-09-10] MEDS: FLUCONAZOLE 100 MG/50 ML 50 ML IV SCH (08:53)
[2022-09-10] MEDS: RT-ALBUTEROL SULF 2.5 MG/3 ML PRE-MIX VIAL INH PRN (10:23)
--- NOTE | 2022-09-10 10:46 | Speech Therapy Daily Note ---
Speech Daily Progress Note Subjective Date Seen by Provider: Sep 10, 2022 Time Seen by Provider: 00:27 Pt was completing OT session and was alert and willing to participate in ST treatment. Pt reported taking a nap prior to therapies and feeling more alert today. Objective The patient was provided 4 ice chips (self-fed by patient) and 15 teaspoons of applesauce with no overt s/s of aspiration with ice chips. Cough x1/15 trials of puree. Pt required frequent rest breaks between P.O. trials due to increased respiratory effort, but was eager to continue PO trials. Pt c/o dry mouth/throat and reported puree, ice chips were helpful. Pt re-educated on safe swallow precautions and strategies (e.g. effortful swallow). Barriers towards diet advancement continue to include respiratory strength, overall fatigue, and weakness. Recommendations: - The patient should continued to receive her primary nutrition, hydration, and medication via NG tube. - Excellent and frequent oral care to be provided to reduce the transfer of oral bacteria to the lungs should aspiration of secretions be experienced. - Following excellent oral care, ice chips (sparingly, three to five per hour) to aid in oral comfort and the rehabilitation of the oropharyngeal swallow response. - Continue effortful swallowing exercise, as able. - Speech pathology to continue daily evaluation of the oropharyngeal swallow response. Pt is displaying positive progression towards oropharyngeal swallowing goals. Assessment Assessment Current Status: Good Progress Treatment Plan Continue Plan of Care Speech Short Term Goals Short Term Goals Short Term Goals 1. The patient will tolerate trials of the least restrictive consistency without s/s of suspected aspiration. Time Frame-STG: Five Days. Speech Senior Climate Advisor Goals Snf Goals 1. The patient will tolerate the least restrictive diet consistency without s/s of suspected aspiration. Time Frame: Two Weeks. Speech-Plan Patient/Family Goals Patient/Family Goals: diet advancement, increased PO intake Treatment Plan Speech Therapy Treatment Plan: Continue Plan of Care Treatment Duration: Sep 24, 2022 Frequency: 4 times per week Estimated Hrs Per Day: .25 hour per day Rehab Potential: Guarded Barriers to Learning: fatigue, respiration, weakness Pt/Family Agrees to Plan: Yes Safety Risks/Education Teaching Recipient: Patient Teaching Methods: Discussion Response to Teaching: Verbalize Understanding Education Topics Provided: safe swallow precautions and strategies Time Speech Therapy Time In: 09:57 Speech Therapy Time Out: 10:24 DATE: Sep 10, 2022 Total Billed Time: 27 Billed Treatment Time 1, JOSEPH BANUELOS Sep 10, 2022 10:46
--- NOTE | 2022-09-10 11:10 | Physical Therapy Daily Note ---
PT Daily Note-Current Subjective Patient agrees to PT Pain Section J - Health Conditions 1. Rarely or not at all 2. Occasionally 3. Frequently 4. Almost constantly 8. Unable to answer Pain Effect on Sleep: 2 Pain Interference with Therapy: 2 Pain Interference w/Day-to-Day: 2 Mental Status Attachments: Oxygen, Phillips Catheter, IV TPN, wound vac Transfers SCALE: Activities may be completed with or without assistive devices. 9-Tqbzgvhvlq-jaotpat completes the activity by him/herself with no assistance from a helper. 5-Set-up or Clean-up Assistance-helper sets up or cleans up; patient completes activity. [place] assists only prior to or following the activity. 4-Supervision or Touching Assistance-helper provides verbal cues and/or touching/steadying and/or contact guard assistance as patient completes activity. Assistance may be provided throughout the activity or intermittently. 3-Partial/Moderate Assistance-helper does LESS THAN HALF the effort. [place] lifts, holds or supports trunk or limbs, but provides less than half the effort. 2-Substantial/Maximal Assistance-helper does MORE THAN HALF the effort. [place] lifts or holds trunk or limbs and provides more than half the effort. 0-Wmhtsqtgf-upavso does ALL the effort. Patient does none of the effort to complete the activity. Or, the assistance of 2 or more helpers is required for the patient to complete the activity. If activity was not attempted, code reason: 7-Patient Refused. 9-Not Applicable-not attempted and the patient did not perform the activity before the current illness, exacerbation or injury. 10-Not Attempted due to Environmental Limitations-(lack of equipment, weather restraints, etc.). 88-Not Attempted due to Medical Conditions or Safety Concerns. Sit to Lying (QC): 1 (x 2) Lying to Sitting/Side of Bed(Q: 1 (x 2) Weight Bearing Right Lower Extremity: Right Weight Bearing/Tolerated Left Lower Extremity: Left Weight Bearing/Tolerated Exercises Seated Therapy Exercises: Ankle pumps, Long arc quads Seated Reps: 15 (AAROM) Assessment Patient tolerated treatment well and returned to supine then bed placed in chair position. PT Short Term Goals Short Term Goals Time Frame: Sep 18, 2022 Roll Left & Right: 2 Sit to lyin Lying to sitting on side of be: 2 Sit to stand: 2 Chair/wmp-xj-uckdu transfer: 2 PT Retirement Goals Retirement Goals PT Retirement Goals Time Frame: Oct 09, 2022 Roll Left & Right (QC): 6 Sit to Lying (QC): 6 Lying-Sitting on Side/Bed(QC): 6 Sit to Stand (QC): 6 Chair/Wge-gc-Bllsx Xfer(QC): 6 Toilet Transfer (QC): 6 Walk 10 feet (QC): 6 Walk 50ft with 2 Turns (QC): 6 Walk 150 ft (QC): 6 PT Plan Treatment/Plan Treatment Plan: Continue Plan of Care Treatment Plan: Bed Mobility, Education, Functional Activity Earlene, Functional Strength, Gait, Safety, Therapeutic Exercise, Transfers Treatment Duration: Oct 09, 2022 Frequency: 6 times per week Estimated Hrs Per Day: .25 hour per day Patient and/or Family Agrees t: Yes Time Time In: 942 Time Out: 955 DATE: Sep 10, 2022 Total Billed Treatment Time: 13 Total Billed Treatment 1 visit FA 13 min BRIGETTE FRANCISCO PT Sep 10, 2022 11:10
[2022-09-10 11:27] VITALS: BP 151/72
[2022-09-10] MEDS: POTASSIUM CL 10MEQ/50ML IVPB 50 ML IV SCH ×4 (11:45→15:43)
--- NOTE | 2022-09-10 12:54 | Occupational Ther Daily Note ---
OT Current Status-Daily Note Subjective AWAKE IN BED, AGREEABLE TO OT Mental Status/Objective Patient Orientation: Situation Attachments: IV, NG Tube, Oxygen, SCD's ADL-Treatment Therapy Code Descriptions/Definitions Functional [place] Measure: 0=Not Assessed/NA 4=Minimal Assistance 1=Total Assistance 5=Supervision or Setup 2=Maximal Assistance 6=Modified Cascade 3=Moderate Assistance 7=Complete IndependenceSCALE: Activities may be completed with or without assistive devices. 5-Lxrnawvbfl-egtgfrg completes the activity by him/herself with no assistance from a helper. 5-Set-up or Clean-up Assistance-helper sets up or cleans up; patient completes activity. [place] assists only prior to or following the activity. 4-Supervision or Touching Assistance-helper provides verbal cues and/or touching/steadying and/or contact guard assistance as patient completes activity. Assistance may be provided throughout the activity or intermittently. 3-Partial/Moderate Assistance-helper does LESS THAN HALF the effort. [place] lifts, holds or supports trunk or limbs, but provides less than half the effort. 2-Substantial/Maximal Assistance-helper does MORE THAN HALF the effort. [place] lifts or holds trunk or limbs and provides more than half the effort. 2-Tfxmyfzfj-gokywo does ALL the effort. Patient does none of the effort to complete the activity. Or, the assistance of 2 or more helpers is required for the patient to complete the activity. If activity was not attempted, code reason: 7-Patient Refused. 9-Not Applicable-not attempted and the patient did not perform the activity before the current illness, exacerbation or injury. 10-Not Attempted due to Environmental Limitations-(lack of equipment, weather restraints, etc.). 88-Not Attempted due to Medical Conditions or Safety Concerns. Eating (QC): 4 Oral Hygiene (QC): 3 Upper Body Dressing (QC): 3 Lower Body Dressing (QC): 1 On/Off Footwear: 1 Toileting Hygiene (QC): 1 Toilet Transfer (QC): 1 Other Treatment EOB SITTING DYNAMIC REACH AND BALANCE Education OT Patient Education: Correct positioning, Exercise program, Modified ADL techniques, Progress toward Goal/Update tx plan, Purpose of tx/functional activities, Reviewed precautions, Rehab process, Safety issues Teaching Recipient: Patient Teaching Methods: Demonstration, Discussion Response to Teaching: Reinforcement Needed OT Hospital Superintendent Goals Hospital Superintendent Goals Eating (QC): 4 Oral Hygiene (QC): 4 Toileting Hygiene (QC): 4 Shower/Bathe Self (QC): 4 Upper Body Dressing (QC): 4 Lower Body Dressing (QC): 4 On/Off Footwear (QC): 4 1=Demonstrate adherence to instructed precautions during ADL tasks. 2=Patient will verbalize/demonstrate understanding of assistive devices/modifications for ADL. 3=Patient will improve strength/tolerance for activity to enable patient to perform ADL's. OT Education/Plan Discharge Recommendations Plan/Recommendations: Continue POC Patient/Family Goals CORRECTLY POSITIONED PATIENT IN BED, NO TELEMETRY CONCERNS, ALL NEEDS MET Treatment Plan/Plan of Care Patient would benefit from OT for education, treatment and training to promote independence in ADL's, mobility, safety and/or upper extremity function for ADL's. Plan of Care: ADL Retraining, Cognitive Retraining, Functional Mobility, Group Exercise/Act as Ind, UE Funct Exercise/Act Treatment Duration: Sep 11, 2022 Frequency: 3 times per week (3-5 times per week) Estimated Hrs Per Day: .25 hour per day Rehab Potential: Guarded Time Start Time: 09:43 Stop Time: 09:58 DATE: Sep 10, 2022 Total Time Billed (hr/min): 15 Billed Treatment Time FA 15 MIN HOLLIE DENSON OT Sep 10, 2022 12:54
[2022-09-10 15:22] VITALS: BP 157/74
[2022-09-10 19:16] VITALS: BP 146/67
[2022-09-10] MEDS: PRAMIPEXOLE 0.125 MG (MIRAPEX) TABLET PO SCH (22:33)
[2022-09-10] MEDS: DONEPEZIL 10 MG (ARICEPT) TAB PO SCH (22:33)
[2022-09-10 23:43] VITALS: BP 155/69
[2022-09-11] VITALS (8 sets, daily range): BP systolic 143–178; BP diastolic 72–83
[2022-09-11] MEDS: inSUlin ASPART (NovoLOG) 1 UNIT/0.01 ML (CHARGE PER UNIT) SC SCH ×5 (00:22→23:23)
[2022-09-11] MEDS: morphine INJ 4 MG/ML 1 ML (VIAL/SYRINGE) IVP PRN ×3 (03:46→21:04)
[2022-09-11] MEDS: meTOprolol 5 MG/5 ML (LOPRESSOR) VIAL IV PRN ×3 (03:46→22:51)
[2022-09-11 05:04] LABS: ALBUMIN 2.3 GM/DL (3.2-4.5); POTASSIUM 3.8 MMOL/L (3.6-5.0)
[2022-09-11 05:05] LABS: CALCIUM 8.5 MG/DL (8.5-10.1)
[2022-09-11 05:06] LABS: TOTAL PROTEIN 5.3 GM/DL (6.4-8.2)
[2022-09-11 05:08] LABS: BILIRUBIN,TOTAL 0.5 MG/DL (0.1-1.0)
[2022-09-11 05:10] LABS: CREATININE SERUM 0.66 MG/DL (0.60-1.30); PHOSPHORUS 2.8 MG/DL (2.3-4.7)
[2022-09-11 05:13] LABS: MAGNESIUM 1.6 MG/DL (1.6-2.4)
[2022-09-11 05:17] LABS: BASOPHILS # (AUTO) 0.1 10^3/uL (0.0-0.1); BASOPHILS % (AUTO) 1 % (0-10); EOSINOPHILS # (AUTO) 0.8 10^3/uL (0.0-0.3); EOSINOPHILS % (AUTO) 7 % (0-10); HEMATOCRIT 29 % (35-52); HEMOGLOBIN 9.1 g/dL (11.5-16.0); LYMPHOCYTES % (AUTO) 9 % (12-44); MEAN CORPUSCULAR HEMOGLOBIN 25 pg (25-34); MEAN CORPUSCULAR HGB CONC 31 g/dL (32-36); MEAN CORPUSCULAR VOLUME 79 fL (80-99); MEAN PLATELET VOLUME 10.2 fL (9.0-12.2); MONOCYTES # (AUTO) 1.3 10^3/uL (0.0-1.0); MONOCYTES % (AUTO) 11 % (0-12); NEUTROPHILS # (AUTO) 8.7 10^3/uL (1.8-7.8); NEUTROPHILS % (AUTO) 73 % (42-75); PLATELET COUNT 374 10^3/uL (130-400); WHITE BLOOD COUNT 11.9 10^3/uL (4.3-11.0)
[2022-09-11] MEDS: ACETAMINOPHEN 500 MG TAB (TYLENOL) PO SCH ×3 (06:03→22:57)
[2022-09-11] MEDS: RT-ALBUTEROL/IPRATROPIUM 3 ML (DUONEB) VIAL INH SCH ×2 (07:35→21:16)
[2022-09-11] MEDS: PANTOPRAZOLE 40 MG (PROTONIX) VIAL IVP SCH (08:18)
[2022-09-11] MEDS: ENOXAPARIN 40 MG/0.4 ML (LOVENOX) SYR SC SCH (08:19)
[2022-09-11] MEDS: OXYBUTYNIN (DITROPAN) 5 MG TAB PO SCH ×2 (08:20→20:20)
[2022-09-11] MEDS: VITAMIN D3 25 MCG (1,000 UNITS) TABLET PO SCH (08:20)
[2022-09-11] MEDS: lisINopril 20 MG (PRINIVIL) TABLET PO SCH (08:20)
[2022-09-11] MEDS: risperiDONE 0.5 MG (RisperDAL) TABLET PO SCH ×2 (08:20→20:20)
[2022-09-11] MEDS: levETIRAcetam 1000 mg/NS 100ml IVPB IV SCH ×4 (08:21→21:13)
[2022-09-11] MEDS: MICONAZOLE 2% POWDER (DESENEX AF) 90 GM TOP SCH ×2 (08:22→20:20)
[2022-09-11] MEDS: APAP 325 MG/10.15 ML LIQ (TYLENOL) UDC NG PRN (08:44)
--- NOTE | 2022-09-11 08:58 | Physical Therapy Daily Note ---
PT Daily Note-Current Subjective Patient c/o mouth pain. RN notified. Pain Section J - Health Conditions 1. Rarely or not at all 2. Occasionally 3. Frequently 4. Almost constantly 8. Unable to answer Pain Effect on Sleep: 2 Pain Interference with Therapy: 2 Pain Interference w/Day-to-Day: 2 Mental Status Patient Orientation: Person Transfers SCALE: Activities may be completed with or without assistive devices. 3-Ofkwdxsumo-kgjwnaf completes the activity by him/herself with no assistance from a helper. 5-Set-up or Clean-up Assistance-helper sets up or cleans up; patient completes activity. [place] assists only prior to or following the activity. 4-Supervision or Touching Assistance-helper provides verbal cues and/or touching/steadying and/or contact guard assistance as patient completes activity. Assistance may be provided throughout the activity or intermittently. 3-Partial/Moderate Assistance-helper does LESS THAN HALF the effort. [place] lifts, holds or supports trunk or limbs, but provides less than half the effort. 2-Substantial/Maximal Assistance-helper does MORE THAN HALF the effort. [place] lifts or holds trunk or limbs and provides more than half the effort. 0-Mvmackpod-dzfepr does ALL the effort. Patient does none of the effort to complete the activity. Or, the assistance of 2 or more helpers is required for the patient to complete the activity. If activity was not attempted, code reason: 7-Patient Refused. 9-Not Applicable-not attempted and the patient did not perform the activity before the current illness, exacerbation or injury. 10-Not Attempted due to Environmental Limitations-(lack of equipment, weather restraints, etc.). 88-Not Attempted due to Medical Conditions or Safety Concerns. Weight Bearing Right Lower Extremity: Right Weight Bearing/Tolerated Left Lower Extremity: Left Weight Bearing/Tolerated Exercises Supine Ex: Ankle pumps, Quad Set, Heel Slides, Straight leg raise, Hip abd/add Supine Reps: 15 (AAROM bilaterally) Assessment Patient tolerated exercises. bilateral LE elevated with pillows to relieve heel pressure. Bed alarm activated. PT Short Term Goals Short Term Goals Time Frame: Sep 18, 2022 Roll Left & Right: 2 Sit to lyin Lying to sitting on side of be: 2 Sit to stand: 2 Chair/vdu-pg-nykiv transfer: 2 PT [facility] Goals Door To Door Salesman Goals PT Door To Door Salesman Goals Time Frame: Oct 09, 2022 Roll Left & Right (QC): 6 Sit to Lying (QC): 6 Lying-Sitting on Side/Bed(QC): 6 Sit to Stand (QC): 6 Chair/Yix-ln-Rsrjw Xfer(QC): 6 Toilet Transfer (QC): 6 Walk 10 feet (QC): 6 Walk 50ft with 2 Turns (QC): 6 Walk 150 ft (QC): 6 PT Plan Treatment/Plan Treatment Plan: Continue Plan of Care Treatment Plan: Bed Mobility, Education, Functional Activity Earlene, Functional Strength, Gait, Safety, Therapeutic Exercise, Transfers Treatment Duration: Oct 09, 2022 Frequency: 6 times per week Estimated Hrs Per Day: .25 hour per day Patient and/or Family Agrees t: Yes Time Time In: 730 Time Out: 746 DATE: Sep 11, 2022 Total Billed Treatment Time: 16 Total Billed Treatment 1 visit EX 16 min BRIGETTE FRANCISCO PT Sep 11, 2022 08:58
[2022-09-11] MEDS: FLUCONAZOLE 100 MG/50 ML 50 ML IV SCH (09:39)
--- NOTE | 2022-09-11 10:58 | Progress Note - Hospitalist ---
Subjective HPI/CC On Admission Date Seen by Provider: Sep 11, 2022 Time Seen by Provider: 10:54 Roseann had a very reassuring SBT yesterday. She lasted 2 hours with SBT. No overnight events, off pressors, on precedex currently for planned ct. Granddaughter reports that she and her sister spoke with Roseann yesterday and affirmed that Roseann herself does not want to do Trach/peg. 2.4L out yesterday after lasix dose, though +565cc on balance. Subjective/Events-last exam Patient confused but does not appear to be in acute distress NG tube placed chronically ill in appearance. Patient voicing no complaints. Objective Exam Vital Signs Vital Signs Date Time Temp Pulse Resp B/P (MAP) Pulse Ox O2 Delivery O2 Flow Rate FiO2 09/11/22 07:36 93 High Flow N/C 2.00 09/11/22 07:31 37.3 109 20 157/77 (103) Capillary Refill : Less Than 3 Seconds General Appearance: No Apparent Distress, Chronically ill Respiratory: Lungs Clear, No Accessory Muscle Use, No Respiratory Distress Cardiovascular: Regular Rate, Rhythm, No Gallop, No Murmur Gastrointestinal: Soft, Other (Bowel sounds absent) Results/Procedures Lab Laboratory Tests 09/11/22 04:30 Patient resulted labs reviewed. 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 Critical Care Critically Ill Patient MIGDALIA EVANS MD Sep 11, 2022 10:58
--- NOTE | 2022-09-11 12:46 | Progress Note ---
Subjective Date Seen by a Provider: Sep 11, 2022 Time Seen by a Provider: 11:30 Subjective/Events-last exam Patient seen with Dr. Long. Patient reports difficult for her to talk. NGT in place with tube feeds. Patient denies any N/V or abdominal pain. wound vac in place with no surrounding redness or erythema. Right lower quadrant RICCARDO drain in place with minimal serous drainage. Objective Exam Vital Signs Date Time Temp Pulse Resp B/P (MAP) Pulse Ox O2 Delivery O2 Flow Rate FiO2 09/11/22 12:39 91 09/11/22 12:02 37.1 95 18 143/72 (95) 93 High Flow N/C 3.00 09/11/22 09:00 Nasal Cannula 2.00 09/11/22 07:36 93 High Flow N/C 2.00 09/11/22 07:31 37.3 109 20 157/77 (103) 92 High Flow N/C 2.00 09/11/22 07:00 105 09/11/22 03:32 37.3 99 18 162/76 (104) 94 High Flow N/C 2.00 09/11/22 01:00 102 09/10/22 23:43 37.0 90 16 155/69 (97) 92 High Flow N/C 2.00 09/10/22 21:02 93 High Flow N/C 2.00 09/10/22 21:00 Nasal Cannula 2.00 09/10/22 19:21 88 09/10/22 19:16 37.6 99 18 146/67 (93) 95 Nasal Cannula 2.00 09/10/22 15:22 37.4 97 20 157/74 (101) 96 High Flow N/C 2.00 09/10/22 13:00 106 I & O 09/11/22 07:00 Intake Total 280 ml Output Total 1965 ml Balance -1685 ml Capillary Refill : Less Than 3 Seconds General Appearance: No Apparent Distress, WD/WN Neck: Normal Inspection, Supple Respiratory: No Accessory Muscle Use, No Respiratory Distress Gastrointestinal: normal bowel sounds, non tender, soft, other (RLQ RICCARDO drain with serous drainage) Neurologic/Psychiatric: Alert, Normal Mood/Affect Skin: Normal Color, Warm/Dry, Other (abdominal wound vac in place with no signs of infection.) Results Lab Laboratory Tests 09/10/22 18:09: Glucometer 127H 3/17/23 23:42: Glucometer 105 09/11/22 04:30: White Blood Count 11.9H, Red Blood Count 3.66L, Hemoglobin 9.1L, Hematocrit 29L, Mean Corpuscular Volume 79L, Mean Corpuscular Hemoglobin 25, Mean Corpuscular Hemoglobin Concent 31L, Red Cell Distribution Width 25.3H, Platelet Count 374, Mean Platelet Volume 10.2, Immature Granulocyte % (Auto) 1, Neutrophils (%) (Auto) 73, Lymphocytes (%) (Auto) 9L, Monocytes (%) (Auto) 11, Eosinophils (%) (Auto) 7, Basophils (%) (Auto) 1, Neutrophils # (Auto) 8.7H, Lymphocytes # (Auto) 1.0, Monocytes # (Auto) 1.3H, Eosinophils # (Auto) 0.8H, Basophils # (Auto) 0.1, Immature Granulocyte # (Auto) 0.1, Sodium Level 140, Potassium Level 3.8, Chloride Level 103, Carbon Dioxide Level 28, Anion Gap 9, Blood Urea Nitrogen 13, Creatinine 0.66, Estimat Glomerular Filtration Rate 90, BUN/Creatinine Ratio 20, Glucose Level 127H, Calcium Level 8.5, Corrected Calcium 9.9, Phosphorus Level 2.8, Magnesium Level 1.6, Total Bilirubin 0.5, Aspartate Amino Transf (AST/SGOT) 17, Alanine Aminotransferase (ALT/SGPT) 18, Alkaline Phosphatase 47, Total Protein 5.3L, Albumin 2.3L 09/11/22 05:36: Glucometer 119H 09/11/22 11:59: Glucometer 109 Microbiology 09/02/22 Catheter Tip Culture - Final, Complete No growth 09/02/22 Gram Stain - Final, Complete 09/02/22 Wound Culture - Final, Complete Pseudomonas aeruginosa YEAST 08/23/22 Gram Stain - Final, Complete 08/23/22 Sputum Culture - Final, Complete Pseudomonas aeruginosa Mixed Bacterial [place] 08/22/22 Urine Culture - Final, Complete NO GROWTH Assessment/Plan Assessment/Plan Assess & Plan/Chief Complaint A 76 year old female with adenocarcinoma of right colon who is S/P Laparoscopic hand assisted right hemicolectomy (08/18) S/P Diagnostic lap with abd washout and colon resection and re-anastamosis (08/23) Dysphagia - continues to slowly improve Hypertension- controlled Anemia - stable Leukocytosis - resolved Hypotension - resolved and off pressors Thrombocythemia - improving Advanced diet as tolerated by speech, still continue nutrition via NG tube continue fluconazole therapy, continue pain medication, continue IVF start breathing treatments, repeat CXR to access pleurel effusions Per SS, referral to [facility] has been made, continue to follow ANSON SOLIS APRN Sep 11, 2022 12:46
[2022-09-11] MEDS ORDERED: CHLORASEPTIC SPRAY 177 ML LIQUID MC PRN (13:15)
[2022-09-11] MEDS: D5W 1000 ML IV SOLUTION 1,000 ML IV SCH (18:52)
[2022-09-11] MEDS: PRAMIPEXOLE 0.125 MG (MIRAPEX) TABLET PO SCH (20:20)
[2022-09-11] MEDS: DONEPEZIL 10 MG (ARICEPT) TAB PO SCH (20:20)
[2022-09-11] MEDS ORDERED: levETIRAcetam 1000 mg/NS 100ml 100 ML IV ONE (21:12)
[2022-09-12] VITALS (9 sets, daily range): BP systolic 123–169; BP diastolic 70–90
[2022-09-12] MEDS: morphine INJ 4 MG/ML 1 ML (VIAL/SYRINGE) IVP PRN ×4 (04:18→22:04)
[2022-09-12 04:21] LABS: BASOPHILS # (AUTO) 0.1 10^3/uL (0.0-0.1); BASOPHILS % (AUTO) 0 % (0-10); EOSINOPHILS # (AUTO) 0.6 10^3/uL (0.0-0.3); EOSINOPHILS % (AUTO) 4 % (0-10); HEMATOCRIT 31 % (35-52); HEMOGLOBIN 9.8 g/dL (11.5-16.0); LYMPHOCYTES # (AUTO) 1.4 10^3/uL (1.0-4.0); LYMPHOCYTES % (AUTO) 10 % (12-44); MEAN CORPUSCULAR HEMOGLOBIN 25 pg (25-34); MEAN CORPUSCULAR HGB CONC 32 g/dL (32-36); MEAN CORPUSCULAR VOLUME 79 fL (80-99); MEAN PLATELET VOLUME 9.9 fL (9.0-12.2); MONOCYTES # (AUTO) 1.6 10^3/uL (0.0-1.0); MONOCYTES % (AUTO) 10 % (0-12); NEUTROPHILS # (AUTO) 11.1 10^3/uL (1.8-7.8); NEUTROPHILS % (AUTO) 75 % (42-75); PLATELET COUNT 383 10^3/uL (130-400); WHITE BLOOD COUNT 14.9 10^3/uL (4.3-11.0)
[2022-09-12 04:43] LABS: ALBUMIN 2.3 GM/DL (3.2-4.5); BILIRUBIN,TOTAL 0.5 MG/DL (0.1-1.0); CALCIUM 8.9 MG/DL (8.5-10.1); CREATININE SERUM 0.64 MG/DL (0.60-1.30); MAGNESIUM 1.6 MG/DL (1.6-2.4); PHOSPHORUS 2.5 MG/DL (2.3-4.7); POTASSIUM 3.8 MMOL/L (3.6-5.0); TOTAL PROTEIN 5.6 GM/DL (6.4-8.2)
[2022-09-12] MEDS: inSUlin ASPART (NovoLOG) 1 UNIT/0.01 ML (CHARGE PER UNIT) SC SCH ×4 (04:47→23:49)
[2022-09-12 05:16] LABS: EOSINOPHILS % (MANUAL) 5 %; HYPOCHROMASIA SLIGHT; LYMPHOCYTES % (MANUAL) 8 %; MONOCYTES % (MANUAL) 14 %; NEUTROPHILS % (MANUAL) 73 %; STOMATOCYTES SLIGHT
[2022-09-12] MEDS: ACETAMINOPHEN 500 MG TAB (TYLENOL) PO SCH ×3 (06:31→21:56)
[2022-09-12] MEDS: RT-ALBUTEROL/IPRATROPIUM 3 ML (DUONEB) VIAL INH SCH ×2 (07:12→20:47)
[2022-09-12] MEDS: meTOprolol 5 MG/5 ML (LOPRESSOR) VIAL IV PRN ×2 (07:31→22:04)
[2022-09-12] MEDS: levETIRAcetam 1000 mg/NS 100ml IVPB IV SCH ×2 (08:25→21:55)
[2022-09-12] MEDS: PANTOPRAZOLE 40 MG (PROTONIX) VIAL IVP SCH (08:28)
[2022-09-12] MEDS: VITAMIN D3 25 MCG (1,000 UNITS) TABLET PO SCH (08:29)
[2022-09-12] MEDS: OXYBUTYNIN (DITROPAN) 5 MG TAB PO SCH ×2 (08:29→21:56)
[2022-09-12] MEDS: lisINopril 20 MG (PRINIVIL) TABLET PO SCH (08:29)
[2022-09-12] MEDS: MICONAZOLE 2% POWDER (DESENEX AF) 90 GM TOP SCH ×2 (08:29→21:56)
[2022-09-12] MEDS: risperiDONE 0.5 MG (RisperDAL) TABLET PO SCH ×2 (08:29→21:56)
[2022-09-12] MEDS: ENOXAPARIN 40 MG/0.4 ML (LOVENOX) SYR SC SCH (08:29)
[2022-09-12] MEDS: FLUCONAZOLE 100 MG/50 ML 50 ML IV SCH (08:47)
--- NOTE | 2022-09-12 09:32 | Progress Note ---
Subjective Date Seen by a Provider: Sep 12, 2022 Time Seen by a Provider: 09:10 Subjective/Events-last exam Patient seen with Dr. Long. Patient denies any nausea or vomiting. Does report right side abdominal pain. Denies any other issues. NGT in place with tube feed. Objective Exam Vital Signs Date Time Temp Pulse Resp B/P (MAP) Pulse Ox O2 Delivery O2 Flow Rate FiO2 09/12/22 08:33 36.2 99 24 150/84 (106) 96 High Flow N/C 3.00 09/12/22 07:21 95 High Flow N/C 3.00 09/12/22 07:21 37.4 118 24 146/81 (102) 95 High Flow N/C 3.00 09/12/22 07:00 118 09/12/22 03:13 37.2 109 16 169/90 (116) 96 High Flow N/C 3.00 09/12/22 01:00 113 09/11/22 23:16 37.4 105 16 157/78 (104) 96 High Flow N/C 3.00 09/11/22 21:16 94 High Flow N/C 2.00 09/11/22 21:00 Nasal Cannula 2.00 09/11/22 19:27 36.6 108 20 161/74 (103) 97 High Flow N/C 3.00 09/11/22 19:00 97 09/11/22 18:13 36.1 107 20 156/83 (107) 96 High Flow N/C 3.00 09/11/22 17:15 108 157/73 (101) 09/11/22 16:02 37.6 114 22 178/77 (110) 91 High Flow N/C 3.00 09/11/22 12:39 91 09/11/22 12:02 37.1 95 18 143/72 (95) 93 High Flow N/C 3.00 I & O 09/12/22 07:00 Intake Total 975 ml Output Total 3265 ml Balance -2290 ml Capillary Refill : Less Than 3 Seconds General Appearance: No Apparent Distress, WD/WN Neck: Normal Inspection, Supple Respiratory: No Accessory Muscle Use, No Respiratory Distress Gastrointestinal: normal bowel sounds, soft, tenderness (Right side), other (RLQ RICCARDO drain with serous drainage. Wound vac in place with no signs of infection) Extremity: Normal Capillary Refill, Pedal Edema Neurologic/Psychiatric: Alert, Normal Mood/Affect Skin: Normal Color, Warm/Dry Results Lab Laboratory Tests 09/11/22 11:59: Glucometer 109 09/11/22 17:59: Glucometer 111H 09/11/22 23:20: Glucometer 107 09/12/22 04:13: White Blood Count 14.9H, Red Blood Count 3.91, Hemoglobin 9.8L, Hematocrit 31L, Mean Corpuscular Volume 79L, Mean Corpuscular Hemoglobin 25, Mean Corpuscular Hemoglobin Concent 32, Red Cell Distribution Width 25.2H, Platelet Count 383, Mean Platelet Volume 9.9, Immature Granulocyte % (Auto) 1, Neutrophils (%) (Auto) 75, Lymphocytes (%) (Auto) 10L, Monocytes (%) (Auto) 10, Eosinophils (%) (Auto) 4, Basophils (%) (Auto) 0, Neutrophils # (Auto) 11.1H, Lymphocytes # (Auto) 1.4, Monocytes # (Auto) 1.6H, Eosinophils # (Auto) 0.6H, Basophils # (Auto) 0.1, Immature Granulocyte # (Auto) 0.1, Neutrophils % (Manual) 73, Lymphocytes % (Manual) 8, Monocytes % (Manual) 14, Eosinophils % (Manual) 5, Hypochromasia SLIGHT, Stomatocytes SLIGHT, Sodium Level 138, Potassium Level 3. 8, Chloride Level 101, Carbon Dioxide Level 28, Anion Gap 9, Blood Urea Nitrogen 17, Creatinine 0.64, Estimat Glomerular Filtration Rate 91, BUN/Creatinine Ratio 27, Glucose Level 121H, Calcium Level 8.9, Corrected Calcium 10.3H, Phosphorus Level 2.5, Magnesium Level 1.6, Total Bilirubin 0.5, Aspartate Amino Transf (AST/SGOT) 18, Alanine Aminotransferase (ALT/SGPT) 15, Alkaline Phosphatase 52, Total Protein 5.6L, Albumin 2.3L 09/12/22 05:25: Glucometer 127H Microbiology 09/02/22 Catheter Tip Culture - Final, Complete No growth 09/02/22 Gram Stain - Final, Complete 09/02/22 Wound Culture - Final, Complete Pseudomonas aeruginosa YEAST 08/23/22 Gram Stain - Final, Complete 08/23/22 Sputum Culture - Final, Complete Pseudomonas aeruginosa Mixed Bacterial [place] 08/22/22 Urine Culture - Final, Complete NO GROWTH Assessment/Plan Assessment/Plan Assess & Plan/Chief Complaint A 76 year old female with adenocarcinoma of right colon who is S/P Laparoscopic hand assisted right hemicolectomy (08/18) S/P Diagnostic lap with abd washout and colon resection and re-anastamosis (08/23) Dysphagia - continues to slowly improve Hypertension- controlled Anemia - stable Leukocytosis - WBC up to 14.9 - will start levaquin Hypotension - resolved and off pressors Thrombocythemia - improving Advanced diet as tolerated by speech, still continue nutrition via NG tube continue fluconazole therapy, continue pain medication, continue IVF start breathing treatments, Will repeat CXR and UA due to increasing WBC Per SS, [facility], continue to follow ANSON SOLIS APRN Sep 12, 2022 09:32
--- NOTE | 2022-09-12 09:59 | Diagnostic Imaging Report ---
INDICATION: Colon carcinoma and leukocytosis. Time of Exam: 9:49 AM Correlation is made with prior chest from 09/07/2022. NG tube has the tip just beyond the GE junction. Proximal side-port is located in the distal esophagus. This could be advanced. Right upper extremity PICC line has tip overlying the SVC right atrial junction. There is some left basilar consolidation and left basilar fluid. There is a small right effusion. Upper lung lazo appear to be fairly clear. There is no pneumothorax. IMPRESSION: 1. Left basilar consolidation and bilateral effusions. 2. NG tube, as described. Dictated by: Dictated on workstation # [id number]
--- NOTE | 2022-09-12 11:47 | Progress Note - Hospitalist ---
Subjective HPI/CC On Admission Date Seen by Provider: Sep 12, 2022 Time Seen by Provider: 11:43 Roseann had a very reassuring SBT yesterday. She lasted 2 hours with SBT. No overnight events, off pressors, on precedex currently for planned ct. Granddaughter reports that she and her sister spoke with Roseann yesterday and affirmed that Roseann herself does not want to do Trach/peg. 2.4L out yesterday after lasix dose, though +565cc on balance. Subjective/Events-last exam Patient opens eyes and orients to sound just shakes her head when answering yes/no questions indicating no shortness of breath or pain. Objective Exam Vital Signs Vital Signs Date Time Temp Pulse Resp B/P (MAP) Pulse Ox O2 Delivery O2 Flow Rate FiO2 09/12/22 08:33 36.2 99 24 150/84 (106) 96 High Flow N/C 3.00 Capillary Refill : Less Than 3 Seconds General Appearance: No Apparent Distress, Chronically ill Respiratory: Chest Non Tender, No Accessory Muscle Use, No Respiratory Distress, Other (Scattered rhonchi with bibasilar rales worse on the left side.) Cardiovascular: Regular Rate, Rhythm, No Edema, No Gallop, No JVD, No Murmur, Normal Peripheral Pulses Results/Procedures Lab Laboratory Tests 09/12/22 04:13 Patient resulted labs reviewed. 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 09/12: White count is up to 14,000 with chest x-ray revealing increasing consolidation in the left base. The patient has not been on levofloxacin for endotracheally cultured Pseudomonas with history of pen allergy that does not appear to be anaphylaxis as best I can tell. We will discontinue levofloxacin that she has been on the medication for well over a week and initiate cefepime and vancomycin for presumed left lower lobe pneumonia. Prognosis remains extremely poor. CODE STATUS needs to be readdressed with family. Critical Care Critically Ill Patient MIGDALIA EVANS MD Sep 12, 2022 11:47
[2022-09-12] MEDS ORDERED: VANCOMYCIN INJECTION 0.1 MG in NS (IVPB) 250 ML IV SCH (12:00)
[2022-09-12] MEDS ORDERED: VANCOMYCIN 2000 MG/NS 500 ML IVPB IV NR ×2 (13:00)
[2022-09-12] MEDS: D5W 1000 ML IV SOLUTION 1,000 ML IV SCH (13:21)
[2022-09-12 14:34] LABS: BILIRUBIN,URINE NEGATIVE (NEGATIVE); CLARITY,URINE CLEAR; COLOR,URINE YELLOW; GLUCOSE, URINE (UA) NEGATIVE (NEGATIVE); KETONES,URINE NEGATIVE (NEGATIVE); LEUKOCYTE ESTERASE ,URINE NEGATIVE (NEGATIVE); NITRITE,URINE NEGATIVE (NEGATIVE); PROTEIN,URINE TRACE (NEGATIVE)
[2022-09-12 14:43] LABS: BACTERIA,URINE TRACE /HPF; GRANULAR CASTS,URINE RARE /LPF; WBC,URINE 0-2 /HPF
[2022-09-12 14:44] LABS: YEAST,URINE FEW /HPF
[2022-09-12] MEDS ORDERED: CEFEPIME INJECTION 1,000 MG in NS (IVPB) 50 ML IV SCH (21:00)
[2022-09-12] MEDS: DONEPEZIL 10 MG (ARICEPT) TAB PO SCH (21:56)
[2022-09-12] MEDS: PRAMIPEXOLE 0.125 MG (MIRAPEX) TABLET PO SCH (21:56)
[2022-09-12] MEDS: VANCOMYCIN 1250 MG/NS 250 ML PREMIX IV SCH (22:51)
[2022-09-13 03:42] VITALS: BP 140/63
[2022-09-13] MEDS: morphine INJ 4 MG/ML 1 ML (VIAL/SYRINGE) IVP PRN ×5 (04:16→21:28)
[2022-09-13] MEDS: meTOprolol 5 MG/5 ML (LOPRESSOR) VIAL IV PRN ×2 (04:16→12:02)
[2022-09-13 04:25] LABS: BASOPHILS # (AUTO) 0.1 10^3/uL (0.0-0.1); BASOPHILS % (AUTO) 0 % (0-10); EOSINOPHILS # (AUTO) 0.8 10^3/uL (0.0-0.3); EOSINOPHILS % (AUTO) 7 % (0-10); HEMATOCRIT 29 % (35-52); LYMPHOCYTES # (AUTO) 1.3 10^3/uL (1.0-4.0); LYMPHOCYTES % (AUTO) 12 % (12-44); MEAN CORPUSCULAR HEMOGLOBIN 25 pg (25-34); MEAN CORPUSCULAR HGB CONC 31 g/dL (32-36); MEAN CORPUSCULAR VOLUME 81 fL (80-99); MEAN PLATELET VOLUME 10.2 fL (9.0-12.2); MONOCYTES # (AUTO) 1.5 10^3/uL (0.0-1.0); MONOCYTES % (AUTO) 13 % (0-12); NEUTROPHILS # (AUTO) 7.9 10^3/uL (1.8-7.8); NEUTROPHILS % (AUTO) 68 % (42-75); PLATELET COUNT 361 10^3/uL (130-400); WHITE BLOOD COUNT 11.6 10^3/uL (4.3-11.0)
[2022-09-13 04:35] LABS: ALBUMIN 2.3 GM/DL (3.2-4.5); POTASSIUM 3.8 MMOL/L (3.6-5.0)
[2022-09-13 04:36] LABS: CALCIUM 8.9 MG/DL (8.5-10.1)
[2022-09-13 04:38] LABS: TOTAL PROTEIN 5.3 GM/DL (6.4-8.2)
[2022-09-13 04:39] LABS: BILIRUBIN,TOTAL 0.3 MG/DL (0.1-1.0)
[2022-09-13 04:41] LABS: CREATININE SERUM 0.7 MG/DL (0.60-1.30); PHOSPHORUS 3.6 MG/DL (2.3-4.7)
[2022-09-13 04:45] LABS: MAGNESIUM 1.8 MG/DL (1.6-2.4)
[2022-09-13] MEDS: inSUlin ASPART (NovoLOG) 1 UNIT/0.01 ML (CHARGE PER UNIT) SC SCH ×4 (06:16→23:40)
[2022-09-13] MEDS: ACETAMINOPHEN 500 MG TAB (TYLENOL) PO SCH ×3 (06:16→22:18)
[2022-09-13 07:28] VITALS: BP 176/78
--- NOTE | 2022-09-13 07:29 | Progress Note - Surgery ---
MANUEL SUN 09/13/22 0729: Subjective Date Seen by a Provider: Sep 13, 2022 Time Seen by a Provider: 07:24 Subjective/Events-last exam Pt minimally responsive this morning with only indicating she is not currently in pain via blinking. Audible crackles are heard with breathing. Pt was unable t o speak but was able to follow one command by squeezing my hand. Strength was decreased since last visit on Tuesday. NG tube in place with suction available. Phillips in place. Abdominal wound covered by dressings. Review of Systems unable to obtain to pt being minimally responsive Objective Exam Vital Signs Date Time Temp Pulse Resp B/P (MAP) Pulse Ox O2 Delivery O2 Flow Rate FiO2 09/13/22 03:42 36.8 109 16 140/63 (88) 96 High Flow N/C 3.00 09/13/22 01:00 103 09/12/22 23:25 37.8 104 16 123/72 (89) 95 High Flow N/C 2.00 09/12/22 21:00 Nasal Cannula 2.00 09/12/22 20:52 37.1 108 95 09/12/22 20:50 95 High Flow N/C 3.00 09/12/22 19:23 37.1 108 20 130/73 (92) 95 High Flow N/C 3.00 09/12/22 19:00 111 09/12/22 16:01 36.5 113 20 147/77 (100) 97 High Flow N/C 3.00 09/12/22 12:53 121 09/12/22 12:00 36.3 113 20 139/80 (99) 96 High Flow N/C 3.00 09/12/22 09:00 Nasal Cannula 2.00 09/12/22 08:33 36.2 99 24 150/84 (106) 96 High Flow N/C 3.00 I & O 09/13/22 07:00 Intake Total 275 ml Output Total 2808 ml Balance -2533 ml Capillary Refill : Less Than 3 Seconds General Appearance: No Apparent Distress, Chronically ill HEENT: Moist Mucous Membranes, Other ( NGT in place) Neck: Supple; No Lymphadenopathy (L), No Lymphadenopathy (R) Respiratory: Accessory Muscle Use, Other (Ronchi diffusley across lung fiels, audible crackels heard on expiration, decreased breath sounds in Lt lower lobe) Cardiovascular: No Murmur, Normal Peripheral Pulses, Tachycardia Peripheral Pulses: 2+ Dorsalis Pedis (R), 2+ Left Dors-Pedis (L), 2+ Radial Pulses (R), 2+ Radial Pulses (L) Gastrointestinal: normal bowel sounds, soft, other (Wound vac in place with no signs of infection) Extremity: No Inflammation; Pedal Edema (2+ BL) Neurologic/Psychiatric: Other (minimally responsive, appears very lethargic and weak ) Skin: Normal Color, Warm/Dry Lymphatic: Other (no cervical or axillary LAD ) Results Lab Laboratory Tests 09/12/22 11:24: Glucometer 116H 09/12/22 14:24: Urine Color YELLOW, Urine Clarity CLEAR, Urine pH 6.0, Urine Specific [place] 1.015L, Urine Protein TRACEH, Urine Glucose (UA) NEGATIVE, Urine Ketones NEGATIVE, Urine Nitrite NEGATIVE, Urine Bilirubin NEGATIVE, Urine Urobilinogen 0.2, Urine Leukocyte Esterase NEGATIVE, Urine RBC (Auto) TRACE-IH, Urine RBC NONE, Urine WBC 0-2, Urine Crystals NONE, Urine Bacteria TRACE, Urine Casts PRESENT, Urine Granular Casts RARE, Urine Mucus NEGATIVE, Urine Yeast FEWH, Urine Culture Indicated YES 09/12/22 17:55: Glucometer 108 09/12/22 23:24: Glucometer 98 09/13/22 04:10: White Blood Count 11.6H, Red Blood Count 3.60L, Hemoglobin 9.0L, Hematocrit 29L, Mean Corpuscular Volume 81, Mean Corpuscular Hemoglobin 25, Mean Corpuscular Hemoglobin Concent 31L, Red Cell Distribution Width 25.0H, Platelet Count 361, Mean Platelet Volume 10.2, Immature Granulocyte % (Auto) 1, Neutrophils (%) (Auto) 68, Lymphocytes (%) (Auto) 12, Monocytes (%) (Auto) 13H, Eosinophils (%) (Auto) 7, Basophils (%) (Auto) 0, Neutrophils # (Auto) 7.9H, Lymphocytes # (Auto) 1.3, Monocytes # (Auto) 1.5H, Eosinophils # (Auto) 0.8H, Basophils # (Auto) 0.1, Immature Granulocyte # (Auto) 0.1, Sodium Level 139, Potassium Level 3.8, Chloride Level 103, Carbon Dioxide Level 28, Anion Gap 8, Blood Urea Nitrogen 22H, Creatinine 0.70, Estimat Glomerular Filtration Rate 89, BUN/Creatinine Ratio 31, Glucose Level 117H, Calcium Level 8.9, Corrected Calcium 10.3H, Phosphorus Level 3.6, Magnesium Level 1.8, Total Bilirubin 0.3, Aspartate Amino Transf (AST/SGOT) 17, Alanine Aminotransferase (ALT/SGPT) 17, Alkaline Phosphatase 46, Total Protein 5.3L, Albumin 2.3L 09/13/22 05:35: Glucometer 113H Microbiology 09/02/22 Catheter Tip Culture - Final, Complete No growth 09/02/22 Gram Stain - Final, Complete 09/02/22 Wound Culture - Final, Complete Pseudomonas aeruginosa YEAST 08/23/22 Gram Stain - Final, Complete 08/23/22 Sputum Culture - Final, Complete Pseudomonas aeruginosa Mixed Bacterial [place] 08/22/22 Urine Culture - Final, Complete NO GROWTH Assessment/Plan Assessment/Plan Assessment/Plan A 76 year old female with adenocarcinoma of right colon who is S/P Laparoscopic hand assisted right hemicolectomy (08/18) S/P Diagnostic lap with abd washout and colon resection and re-anastamosis ( 08/23) Dysphagia - continues to slowly improve per speech Hypertension- controlled Anemia - Hgb at 9, continue to monitor Leukocytosis - WBC down to 11.6 from 14.9 Thrombocythemia - resolved, Plt count 361 today PNA UTI Advanced diet as tolerated by speech, still continue nutrition via NG tube continue Abx therapy of levoquin and cefepime continue pain medication, continue IVF continue breathing treatments UA culture pending Repeat CXR tomorrow to access lower lobe consolidation and BL effusions Per [facility] to access pt today, continue to follow up NIKO TYSON DO 09/13/222006: Subjective Subjective/Events-last exam Patient alert sitting in bed. +tube feeds. No family at bedside. Wound vac in place. WBC slightly down. Objective Exam General Appearance: No Apparent Distress, Chronically ill HEENT: PERRL/EOMI, Moist Mucous Membranes, Other ( NGT in place) Neck: Non Tender, Supple Respiratory: Chest Non Tender, No Accessory Muscle Use, No Respiratory Distress Cardiovascular: No JVD, No Murmur, Tachycardia Gastrointestinal: soft, other (Wound vac in place with no signs of infection) Neurologic/Psychiatric: Alert, Oriented x3, Other (weak and fatigued. ) Skin: Normal Color, Warm/Dry Lymphatic: No Adenopathy Assessment/Plan Assessment/Plan Assessment/Plan S/P Diagnostic lap with abd washout and colon resection and re-anastamosis (08/23) Dysphagia - continues to slowly improve per speech Hypertension- controlled Anemia - Hgb at 9, continue to monitor Leukocytosis - WBC down to 11.6 from 14.9 Thrombocythemia - resolved, Plt count 361 today PNA UTI tube feeds through NG continue Abx continue pain medication, continue IVF continue breathing treatments UA culture pending Per , [facility] to evaluate pt today, continue to follow up Supervisory-Addendum Brief Verification & Attestation Participated in pt care: history, MDM, physical Personally performed: exam, history, MDM, supervision of care Care discussed with: Medical Student Procedures: n/a Results interpretation: Verified all documentation Verification and Attestation of Medical Student E/M Service A medical student performed and documented this service in my presence. I reviewed and verified all information documented by the medical student and made modifications to such information, when appropriate. I personally performed the physical exam and medical decision making. Niko Tyson, Sep 13, 2022,20:07 MANUEL SUN Sep 13, 2022 07:29 NIKO TYSON DO Sep 13, 2022 20:07
[2022-09-13] MEDS: RT-ALBUTEROL/IPRATROPIUM 3 ML (DUONEB) VIAL INH SCH ×2 (07:53→21:35)
[2022-09-13] MEDS: OXYBUTYNIN (DITROPAN) 5 MG TAB PO SCH ×2 (08:51→20:47)
[2022-09-13] MEDS: lisINopril 20 MG (PRINIVIL) TABLET PO SCH (08:51)
[2022-09-13] MEDS: ENOXAPARIN 40 MG/0.4 ML (LOVENOX) SYR SC SCH (08:51)
[2022-09-13] MEDS: VITAMIN D3 25 MCG (1,000 UNITS) TABLET PO SCH (08:51)
[2022-09-13] MEDS: PANTOPRAZOLE 40 MG (PROTONIX) VIAL IVP SCH (08:55)
[2022-09-13] MEDS: risperiDONE 0.5 MG (RisperDAL) TABLET PO SCH ×2 (08:55→20:47)
[2022-09-13] MEDS: MICONAZOLE 2% POWDER (DESENEX AF) 90 GM TOP SCH ×2 (08:58→20:42)
[2022-09-13] MEDS: levETIRAcetam 1000 mg/NS 100ml IVPB IV SCH ×2 (09:00→21:20)
[2022-09-13] MEDS: FLUCONAZOLE 100 MG/50 ML 50 ML IV SCH (09:21)
[2022-09-13] MEDS: CEFEPIME INJECTION 1,000 MG in NS (IVPB) 50 ML IV SCH ×3 (10:33→20:42)
--- NOTE | 2022-09-13 10:55 | Progress Note - Hospitalist ---
Subjective HPI/CC On Admission Date Seen by Provider: Sep 13, 2022 Time Seen by Provider: 09:00 Roseann had a very reassuring SBT yesterday. She lasted 2 hours with SBT. No overnight events, off pressors, on precedex currently for planned ct. Granddaughter reports that she and her sister spoke with Roseann yesterday and affirmed that Roseann herself does not want to do Trach/peg. 2.4L out yesterday after lasix dose, though +565cc on balance. Subjective/Events-last exam Patient appears more complicated Declined noted Reviewed CXR and labs Patient appears less alert Review of Systems General: Fatigue, Malaise Objective Exam Vital Signs Vital Signs Date Time Temp Pulse Resp B/P (MAP) Pulse Ox O2 Delivery O2 Flow Rate FiO2 09/14/22 04:07 36.4 96 18 138/76 (96) 96 High Flow N/C 3.00 Capillary Refill : Less Than 3 Seconds General Appearance: No Apparent Distress, WD/WN, Chronically ill Respiratory: Lungs Clear, Normal Breath Sounds, Decreased Breath Sounds Cardiovascular: Regular Rate, Rhythm Neurologic/Psychiatric: Alert, Depressed Affect, Disoriented Results/Procedures Lab Patient resulted labs reviewed. 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
[2022-09-13] MEDS: VANCOMYCIN 1250 MG/NS 250 ML PREMIX IV SCH ×2 (11:05→22:18)
--- NOTE | 2022-09-13 11:07 | Physical Therapy Daily Note ---
PT Daily Note-Current Subjective Patient less responsive on this date. PT/OT in to reposition for ST to assess. Pain Section J - Health Conditions 1. Rarely or not at all 2. Occasionally 3. Frequently 4. Almost constantly 8. Unable to answer Pain Effect on Sleep: 2 Pain Interference with Therapy: 2 Pain Interference w/Day-to-Day: 2 Mental Status Attachments: Central Line, NG Tube, Oxygen, Phillips Catheter (1) Transfers SCALE: Activities may be completed with or without assistive devices. 8-Eudboaryfd-dboigcm completes the activity by him/herself with no assistance from a helper. 5-Set-up or Clean-up Assistance-helper sets up or cleans up; patient completes activity. [place] assists only prior to or following the activity. 4-Supervision or Touching Assistance-helper provides verbal cues and/or touching/steadying and/or contact guard assistance as patient completes activity. Assistance may be provided throughout the activity or intermittently. 3-Partial/Moderate Assistance-helper does LESS THAN HALF the effort. [place] lifts, holds or supports trunk or limbs, but provides less than half the effort. 2-Substantial/Maximal Assistance-helper does MORE THAN HALF the effort. [place] lifts or holds trunk or limbs and provides more than half the effort. 4-Fpfuqvzqy-legqwy does ALL the effort. Patient does none of the effort to complete the activity. Or, the assistance of 2 or more helpers is required for the patient to complete the activity. If activity was not attempted, code reason: 7-Patient Refused. 9-Not Applicable-not attempted and the patient did not perform the activity before the current illness, exacerbation or injury. 10-Not Attempted due to Environmental Limitations-(lack of equipment, weather restraints, etc.). 88-Not Attempted due to Medical Conditions or Safety Concerns. Roll Left & Right (QC): 1 (x 2 to reposition up in bed with pillow placement to off load pressure) Weight Bearing Right Lower Extremity: Right Weight Bearing/Tolerated Left Lower Extremity: Left Weight Bearing/Tolerated Assessment Current Status: Poor Progress Patient tolerated repositioning then treatment ceased. ST in for assessment. PT Short Term Goals Short Term Goals Time Frame: Sep 18, 2022 Roll Left & Right: 2 Sit to lyin Lying to sitting on side of be: 2 Sit to stand: 2 Chair/pvf-mi-gvuov transfer: 2 PT Senior Living Goals Senior Living Goals PT Senior Living Goals Time Frame: Oct 09, 2022 Roll Left & Right (QC): 6 Sit to Lying (QC): 6 Lying-Sitting on Side/Bed(QC): 6 Sit to Stand (QC): 6 Chair/Ept-pq-Btwxz Xfer(QC): 6 Toilet Transfer (QC): 6 Walk 10 feet (QC): 6 Walk 50ft with 2 Turns (QC): 6 Walk 150 ft (QC): 6 PT Plan Treatment/Plan Treatment Plan: Continue Plan of Care Treatment Plan: Bed Mobility, Education, Functional Activity Earlene, Functional Strength, Gait, Safety, Therapeutic Exercise, Transfers Treatment Duration: Oct 09, 2022 Frequency: 6 times per week Estimated Hrs Per Day: .25 hour per day Patient and/or Family Agrees t: Yes Time Time In: 1012 Time Out: 1022 DATE: Sep 13, 2022 Total Billed Treatment Time: 10 Total Billed Treatment 1 visit FA 10 min BRIGETTE FRANCISCO PT Sep 13, 2022 11:07
--- NOTE | 2022-09-13 11:23 | Occupational Ther Daily Note ---
OT Current Status-Daily Note Subjective Patient in increased distress from last visit 09/10/22 Mental Status/Objective Patient Orientation: Situation Attachments: IV, NG Tube, Oxygen, SCD's, Telemetry, Other-See Comments (wound vac) ADL-Treatment Therapy Code Descriptions/Definitions Functional [place] Measure: 0=Not Assessed/NA 4=Minimal Assistance 1=Total Assistance 5=Supervision or Setup 2=Maximal Assistance 6=Modified [place] 3=Moderate Assistance 7=Complete IndependenceSCALE: Activities may be completed with or without assistive devices. 6-Okpupqhkyn-rtbppxu completes the activity by him/herself with no assistance from a helper. 5-Set-up or Clean-up Assistance-helper sets up or cleans up; patient completes activity. [place] assists only prior to or following the activity. 4-Supervision or Touching Assistance-helper provides verbal cues and/or touching/steadying and/or contact guard assistance as patient completes acti vity. Assistance may be provided throughout the activity or intermittently. 3-Partial/Moderate Assistance-helper does LESS THAN HALF the effort. [place] lifts, holds or supports trunk or limbs, but provides less than half the effort. 2-Substantial/Maximal Assistance-helper does MORE THAN HALF the effort. [place] lifts or holds trunk or limbs and provides more than half the effort. 1-Oscnziolf-fimtrm does ALL the effort. Patient does none of the effort to complete the activity. Or, the assistance of 2 or more helpers is required for the patient to complete the activity. If activity was not attempted, code reason: 7-Patient Refused. 9-Not Applicable-not attempted and the patient did not perform the activity before the current illness, exacerbation or injury. 10-Not Attempted due to Environmental Limitations-(lack of equipment, weather restraints, etc.). 88-Not Attempted due to Medical Conditions or Safety Concerns. Other Treatment Functional activity in supine, clear of suction tube and bed repositioning Education OT Patient Education: Correct positioning, Purpose of tx/functional activities, Reviewed precautions, Safety issues, Use of adapted equipment OT [facility] Goals Holter Technician Goals Eating (QC): 4 Oral Hygiene (QC): 4 Toileting Hygiene (QC): 4 Shower/Bathe Self (QC): 4 Upper Body Dressing (QC): 4 Lower Body Dressing (QC): 4 On/Off Footwear (QC): 4 1=Demonstrate adherence to instructed precautions during ADL tasks. 2=Patient will verbalize/demonstrate understanding of assistive devices/modifications for ADL. 3=Patient will improve strength/tolerance for activity to enable patient to perform ADL's. OT Education/Plan Discharge Recommendations Plan/Recommendations: Continue POC Treatment Plan/Plan of Care Patient would benefit from OT for education, treatment and training to promote independence in ADL's, mobility, safety and/or upper extremity function for ADL's. Plan of Care: ADL Retraining, Cognitive Retraining, Functional Mobility, Group Exercise/Act as Ind, UE Funct Exercise/Act Treatment Duration: Sep 11, 2022 Frequency: 3 times per week (3-5 times per week) Estimated Hrs Per Day: .25 hour per day Rehab Potential: Guarded LOW TOLERANCE TO ACTIVITY Time Start Time: 10:12 Stop Time: 10:22 DATE: Sep 13, 2022 Total Time Billed (hr/min): 10 Billed Treatment Time FA 1 10 HOLLIE Shah OT Sep 13, 2022 11:23
[2022-09-13 11:35] VITALS: BP 132/61
--- NOTE | 2022-09-13 13:39 | Speech Therapy Daily Note ---
Speech Daily Progress Note Subjective Date Seen by Provider: Sep 13, 2022 Time Seen by Provider: 10:10 The patient was lying in bed with the head elevated, eyes closed upon entrance to her room by the clinician. The patient would open her eyes when her name was spoken, however, promptly returned to eyes closed position. PT and OT present to complete repositioning of patient for increased patient comfort and to off load pressure. Objective The patient was positioned upright in bed for safe swallowing. The clinician attempted oral trials, however, the patient politely refused, shaking her head "no." With yes and no questions, the patient reported odynophagia upon the swal low. ST provided gentle verbal encouragement but the patient continued to report she did not want to attempt any oral trials on this date (water, ice chips, etc.). Additionally, the patient politely decline dysphagia exercises (effortful swallowing) on this date. The clinician offered oral care which was accepted by the patient. The patient's velum displays multiple red patches and the appearance of sores. Large accumulations of mucus were visualized on the velum surface and base of the tongue. The clinician provided thorough oral care with moist swabs, suction, toothbrush, and tissues. The suction did not appear to be providing adequate pull, therefore, the RN was notified. The patient verbalized satisfaction following the thorough cleaning. At completion of the session, the patient's head of bed was slightly declined and the RN was present. The clinician updated the RN on the treatment session and requested oral care for the patient frequently. The patient appears to have declined in progress on this date. Assessment Assessment Current Status: Regressing Treatment Plan Continue Plan of Care Speech Short Term Goals Short Term Goals Short Term Goals 1. The patient will tolerate trials of the least restrictive consistency without s/s of suspected aspiration. Time Frame-STG: Five Days. Speech Mcfp Goals Heater Operator Helper Goals 1. The patient will tolerate the least restrictive diet consistency without s/s of suspected aspiration. Time Frame: Two Weeks. Speech-Plan Treatment Plan Speech Therapy Treatment Plan: Continue Plan of Care Treatment Duration: Sep 24, 2022 Frequency: 4 times per week Estimated Hrs Per Day: .25 hour per day Rehab Potential: Guarded Safety Risks/Education Teaching Recipient: Patient Teaching Methods: Discussion Response to Teaching: Reinforcement Needed Education Topics Provided: Results, Recommendations Time Speech Therapy Time In: 10:22 Speech Therapy Time Out: 10:44 DATE: Sep 13, 2022 Total Billed Time: 22 Billed Treatment Time 1, DYST MELINA GASPAR Sep 13, 2022 13:39
[2022-09-13 16:07] VITALS: BP 138/63
--- NOTE | 2022-09-13 17:05 | Wound Care Assessment ---
Wound Care Assessment Date Seen by Provider: Sep 13, 2022 Time Seen by Provider: 15:30 Chief Complaint Surgical dehiscence HPI This 76 year old patient was admitted to the hospital and found to have numerous complex medical ailments. She had colonic resection for adenocarcinoma of asce nding colon on 08/18 (hemicolectomy) and revision on 08/23 for anastomotic leak. She did experience post-operative anemia. She does also exhibit signs of sepsis with pseudomonas on sputum culture (managed by primary team). She does also have PEM (see albumin). I was consulted to assist in wound vac management. She has had improvements in measurement and granulation since initiation of wound vac therapy. She is now off ventilator but with significant medical and cognitive ailments. Family in discussions about placement following discharge. Hospice is also in consideration. Past Medical History: Admits Cancer, Treaments Smoking Status: Never a Smoker Review of Systems Other systems Unable to assess due to mental status Exam Vital Signs Date Time Temp Pulse Resp B/P (MAP) Pulse Ox O2 Delivery O2 Flow Rate FiO2 09/13/22 16:07 36.4 95 18 138/63 (88) 93 High Flow N/C 3.00 Capillary Refill : Less Than 3 Seconds General Appearance: no apparent distress HEENT: other (hearing wnl. communication lacking) Cardiovascular: no edema Respiratory: no accessory muscle use Extremities: no pedal edema Neurologic/Psychiatric: alert, other (Unable to fully assess) Wound assessment: 19.8x4.5x1.5cm. The epithelalization is small. There is no tunneling or undermining. Drainage is large and serosanguinous. Granulation is large and pink. Necrotic is small and slough. The margins are flat. Results Laboratory Tests 09/12/22 17:55: Glucometer 108 09/12/22 23:24: Glucometer 98 09/13/22 04:10: White Blood Count 11.6H, Red Blood Count 3.60L, Hemoglobin 9.0L, Hematocrit 29L, Mean Corpuscular Volume 81, Mean Corpuscular Hemoglobin 25, Mean Corpuscular Hemoglobin Concent 31L, Red Cell Distribution Width 25.0H, Platelet Count 361, Mean Platelet Volume 10.2, Immature Granulocyte % (Auto) 1, Neutrophils (%) (Auto) 68, Lymphocytes (%) (Auto) 12, Monocytes (%) (Auto) 13H, Eosinophils (%) (Auto) 7, Basophils (%) (Auto) 0, Neutrophils # (Auto) 7.9H, Lymphocytes # (Auto) 1.3, Monocytes # (Auto) 1.5H, Eosinophils # (Auto) 0.8H, Basophils # (Auto) 0.1, Immature Granulocyte # (Auto) 0.1, Sodium Level 139, Potassium Level 3.8, Chloride Level 103, Carbon Dioxide Level 28, Anion Gap 8, Blood Urea Nitrogen 22H, Creatinine 0.70, Estimat Glomerular Filtration Rate 89, BUN/Creatinine Ratio 31, Glucose Level 117H, Calcium Level 8.9, Corrected Calcium 10.3H, Phosphorus Level 3.6, Magnesium Level 1.8, Total Bilirubin 0.3, Aspartate Amino Transf (AST/SGOT) 17, Alanine Aminotransferase (ALT/SGPT) 17, Alkaline Phosphatase 46, Total Protein 5.3L, Albumin 2.3L 09/13/22 05:35: Glucometer 113H 09/13/22 11:39: Glucometer 112H Microbiology 09/12/22 Urine Culture - Preliminary, Resulted Culture In Progress 09/02/22 Catheter Tip Culture - Final, Complete No growth 09/02/22 Gram Stain - Final, Complete 09/02/22 Wound Culture - Final, Complete Pseudomonas aeruginosa YEAST 08/23/22 Gram Stain - Final, Complete 08/23/22 Sputum Culture - Final, Complete Pseudomonas aeruginosa Mixed Bacterial [place] Microbiology 09/12/22 Urine Culture - Preliminary, Resulted Culture In Progress Assessment/Plan/Dx Assessment: 1. Surgical dehiscence 2. Adenocarcinoma s/p colonic resection 3. Acute kidney injury 4. Sepsis 5. Pneumonia (pseudomonal) 6. Post operative anemia 7. PEM Plan: 1. Continue wound vac at current settings. 2. Defer to Surgical team 3. Defer to Nephrology 4. Defer to primary team 5. Defer to primary team 6. Defer to primary team 7. Defer to primary team MARK DIANA MD Sep 13, 2022 17:05
[2022-09-13] MEDS: D5W 1000 ML IV SOLUTION 1,000 ML IV SCH (19:04)
[2022-09-13 19:29] VITALS: BP 146/65
[2022-09-13] MEDS: DONEPEZIL 10 MG (ARICEPT) TAB PO SCH (20:47)
[2022-09-13] MEDS: PRAMIPEXOLE 0.125 MG (MIRAPEX) TABLET PO SCH (20:47)
[2022-09-13 23:47] VITALS: BP 133/70
[2022-09-14] MEDS: CEFEPIME INJECTION 1,000 MG in NS (IVPB) 50 ML IV SCH ×4 (02:33→20:59)
[2022-09-14 04:07] VITALS: BP 138/76
--- NOTE | 2022-09-14 05:07 | PM&R Progress Note ---
Subjective HPI/CC On Admission Date Seen by Provider: Sep 14, 2022 Time Seen by Provider: 09:00 Roseann had a very reassuring SBT yesterday. She lasted 2 hours with SBT. No overnight events, off pressors, on precedex currently for planned ct. Granddaughter reports that she and her sister spoke with Roseann yesterday and affirmed that Roseann herself does not want to do Trach/peg. 2.4L out yesterday after lasix dose, though +565cc on balance. Subjective/Events-last exam Patient declining each day Hospice at home was the decision Pain reported and will be treated Review of Systems General: Fatigue, Malaise Objective Exam Vital Signs Vital Signs Date Time Temp Pulse Resp B/P (MAP) Pulse Ox O2 Delivery O2 Flow Rate FiO2 09/15/22 03:40 36.4 95 18 143/70 (94) 95 Room Air 3.00 3.00 Capillary Refill : Less Than 3 Seconds General Appearance: No Apparent Distress, WD/WN, Chronically ill HEENT: PERRL/EOMI, Moist Mucous Membranes, Other ( NGT in place) Neck: Non Tender, Supple Respiratory: Normal Breath Sounds, Crackles, Decreased Breath Sounds Cardiovascular: Regular Rate, Rhythm Gastrointestinal: Soft, Other (Bowel sounds absent) Genital/Rectal: Other (catheter in plae) Extremity: No Inflammation; Pedal Edema (2+ BL) Neurologic/Psychiatric: Alert, Depressed Affect, Disoriented Skin: Normal Color, Warm/Dry Lymphatic: No Adenopathy Results/Procedures Lab Laboratory Tests 09/14/22 10:30 Patient resulted labs reviewed. Imaging: Reviewed Imaging Films, Reviewed Imaging Report FIM Transfers Therapy Code Descriptions/Definitions Functional [place] Measure: 0=Not Assessed/NA 4=Minimal Assistance 1=Total Assistance 5=Supervision or Setup 2=Maximal Assistance 6=Modified [place] 3=Moderate Assistance 7=Complete IndependenceSCALE: Activities may be completed with or without assistive devices. 2-Vwqamwxuay-aljgeps completes the activity by him/herself with no assistance from a helper. 5-Set-up or Clean-up Assistance-helper sets up or cleans up; patient completes activity. [place] assists only prior to or following the activity. 4-Supervision or Touching Assistance-helper provides verbal cues and/or touching/steadying and/or contact guard assistance as patient completes activity. Assistance may be provided throughout the activity or intermittently. 3-Partial/Moderate Assistance-helper does LESS THAN HALF the effort. [place] lifts, holds or supports trunk or limbs, but provides less than half the effort. 2-Substantial/Maximal Assistance-helper does MORE THAN HALF the effort. [place] lifts or holds trunk or limbs and provides more than half the effort. 8-Nrvibgtpo-ltinof does ALL the effort. Patient does none of the effort to complete the activity. Or, the assistance of 2 or more helpers is required for the patient to complete the activity. If activity was not attempted, code reason: 7-Patient Refused. 9-Not Applicable-not attempted and the patient did not perform the activity before the current illness, exacerbation or injury. 10-Not Attempted due to Environmental Limitations-(lack of equipment, weather restraints, etc.). 88-Not Attempted due to Medical Conditions or Safety Concerns. Roll Left to Right (QC): 1 (x 2 to reposition up in bed with pillow placement to off load pressure) Sit to Lying (QC): 1 (x 2) Sit to Stand (QC): 88 Chair/Qhu-fo-Ozzki Xfer(QC): 88 Gait Training Does the Patient Walk?: No and Walking Goal IS indicated Distance: 300' Walk 10 feet (QC): 4 Walk 50 ft with 2 Turns(QC): 4 Walk 150 ft (QC): 4 Gait Assistive Device: FWW ADL-Treatment Eating (QC): 4 Oral Hygiene (QC): 3 Shower/Bathe Self (QC): 88 Upper Body Dressing (QC): 3 Lower Body Dressing (QC): 1 On/Off Footwear (QC): 1 Toileting Hygiene (QC): 1 Toilet Transfer (QC): 1 Assessment/Plan Assessment and Plan Assess & Plan/Chief Complaint Assess & Plan/Chief Complaint 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
[2022-09-14] MEDS: inSUlin ASPART (NovoLOG) 1 UNIT/0.01 ML (CHARGE PER UNIT) SC SCH ×4 (05:39→23:18)
[2022-09-14] MEDS: ACETAMINOPHEN 500 MG TAB (TYLENOL) PO SCH ×3 (06:09→22:18)
[2022-09-14] MEDS: RT-ALBUTEROL/IPRATROPIUM 3 ML (DUONEB) VIAL INH SCH ×2 (07:01→21:16)
--- NOTE | 2022-09-14 07:32 | Progress Note - Surgery ---
MANUEL SUN 09/14/22 0732: Subjective Date Seen by a Provider: Sep 14, 2022 Time Seen by a Provider: 07:26 Subjective/Events-last exam Pt resting in bed with no family at bedside. Pt appears more alert and responsive today compared to yesterday. Able to speak in 1-2 word sentences and respond to simple commands(hand squeeze and movement of extremities). Was able to stay awake for the majority of the encounter. Pt indicates she has some pleuritic chest pain that is exacerbated when she coughs. States no change in breathing compared to yesterday. NG tube in place. Denies any nausea or vomiting. Per SS, [facility] due [facility] Review of Systems General: No Chills, No Night Sweats HEENT: No Head Aches; Dysphasia Pulmonary: Cough, Pleuritic Chest Pain Cardiovascular: No: Chest Pain, Palpitations Gastrointestinal: No: Nausea, Vomiting Musculoskeletal: No: leg pain Neurological: Weakness limited information obtained do to pts responsiveness Objective Exam Vital Signs Date Time Temp Pulse Resp B/P (MAP) Pulse Ox O2 Delivery O2 Flow Rate FiO2 09/14/22 04:07 36.4 96 18 138/76 (96) 96 High Flow N/C 3.00 09/14/22 01:00 97 09/13/22 23:47 36.8 88 16 133/70 (91) 91 High Flow N/C 3.00 09/13/22 21:52 96 High Flow N/C 3.00 09/13/22 20:50 Nasal Cannula 2.00 09/13/22 19:29 36.5 102 18 146/65 (92) 97 Nasal Cannula 2.00 09/13/22 19:00 99 09/13/22 16:07 36.4 95 18 138/63 (88) 93 High Flow N/C 3.00 09/13/22 12:36 109 09/13/22 11:35 37.6 117 22 132/61 (84) 92 High Flow N/C 3.00 09/13/22 09:00 Nasal Cannula 2.00 09/13/22 07:58 97 High Flow N/C 3.00 09/13/22 07:28 36.1 108 20 176/78 (110) 94 Room Air I & O 09/14/22 07:00 Intake Total 1520 ml Output Total 1475 ml Balance 45 ml Capillary Refill : Less Than 3 Seconds General Appearance: Chronically ill HEENT: PERRL/EOMI, Moist Mucous Membranes, Other ( NGT in place) Neck: Supple; No Lymphadenopathy (L), No Lymphadenopathy (R) Respiratory: Decreased Breath Sounds (in LL lung field), Rhonci Cardiovascular: No Gallop, No Murmur, Tachycardia Peripheral Pulses: 2+ Dorsalis Pedis (R), 2+ Left Dors-Pedis (L), 2+ Radial Pulses (R), 2+ Radial Pulses (L) Gastrointestinal: soft, no pulsatile mass, other (Wound vac in place with no signs of infection) Extremity: No Inflammation; Pedal Edema (2+ BL) Neurologic/Psychiatric: Alert, Depressed Affect Skin: Normal Color, Warm/Dry Lymphatic: Other (no cervical or axillary LAD ) Results Lab Laboratory Tests 09/13/22 11:39: Glucometer 112H 09/13/22 17:41: Glucometer 125H 09/13/22 23:27: Glucometer 90 09/14/22 05:34: Glucometer 116H Microbiology 09/12/22 Urine Culture - Preliminary, Resulted Culture In Progress 09/02/22 Catheter Tip Culture - Final, Complete No growth 09/02/22 Gram Stain - Final, Complete 09/02/22 Wound Culture - Final, Complete Pseudomonas aeruginosa YEAST 08/23/22 Gram Stain - Final, Complete 08/23/22 Sputum Culture - Final, Complete Pseudomonas aeruginosa Mixed Bacterial Maida Assessment/Plan Assessment/Plan Assessment/Plan S/P Diagnostic lap with abd washout and colon resection and re-anastamosis (08/23) Dysphagia - worsening Hypertension- controlled Anemia Leukocytosis PNA UTI Obtain CBC and CMP today to monitor WBC, Hgb, and kidney function tube feeds through NG, continue to work with speech therapy on swallowing continue IV Abx increase PT/OT continue pain medication, continue IVF continue breathing treatments w/ RT UA culture pending Per [facility] denied pt. Via [employer] [facility] has been contacted, continue to follow up NIKO TYSON DO 09/14/221901: Subjective Subjective/Events-last exam Patient laying in bed. More alert and talking to me . Has some confusion. No family at bedside. NG tube clogged last night and had to be replaced for feeds. Objective Exam General Appearance: No Apparent Distress, Chronically ill HEENT: PERRL/EOMI, Normal ENT Inspection, Other ( NGT in place) Neck: Normal Inspection, Non Tender Respiratory: Chest Non Tender, No Accessory Muscle Use, No Respiratory Distress Cardiovascular: No Gallop, No JVD Gastrointestinal: soft, other (Wound vac in place with no signs of infection) Extremity: No Inflammation; Pedal Edema (2+ BL) Neurologic/Psychiatric: Alert; No Oriented x3; Depressed Affect Skin: Normal Color, Warm/Dry Lymphatic: No Adenopathy Assessment/Plan Assessment/Plan Assessment/Plan S/P Diagnostic lap with abd washout and colon resection and re-anastamosis (08/23) Dysphagia - worsening Hypertension- controlled Anemia Leukocytosis PNA UTI Obtain CBC and CMP today to monitor WBC, Hgb, and kidney function tube feeds through NG, continue to work with speech therapy on swallowing continue IV Abx increase PT/OT continue pain medication, continue IVF continue breathing treatments w/ RT UA culture pending Per , [facility] pt. Via [employer] [facility] has been contacted, continue to follow up Consider LTAC discussed with social work Supervisory-Addendum Brief Verification & Attestation Participated in pt care: history, MDM, physical Personally performed: exam, history, MDM, supervision of care Care discussed with: Medical Student Procedures: n/a Results interpretation: Verified all documentation Verification and Attestation of Medical Student E/M Service A medical student performed and documented this service in my presence. I reviewed and verified all information documented by the medical student and made modifications to such information, when appropriate. I personally performed the physical exam and medical decision making. Niko Tyson Sep 14, 2022,19:00 MANUEL SUN Sep 14, 2022 07:32 NIOK TYSON DO Sep 14, 2022 19:02
[2022-09-14 07:56] VITALS: BP 170/75
[2022-09-14] MEDS: levETIRAcetam 1000 mg/NS 100ml IVPB IV SCH ×2 (10:17→20:43)
[2022-09-14] MEDS: FLUCONAZOLE 100 MG/50 ML 50 ML IV SCH (10:17)
[2022-09-14] MEDS: PANTOPRAZOLE 40 MG (PROTONIX) VIAL IVP SCH (10:17)
[2022-09-14] MEDS: morphine INJ 4 MG/ML 1 ML (VIAL/SYRINGE) IVP PRN ×3 (10:18→18:31)
[2022-09-14] MEDS: ENOXAPARIN 40 MG/0.4 ML (LOVENOX) SYR SC SCH (10:18)
[2022-09-14] MEDS: risperiDONE 0.5 MG (RisperDAL) TABLET PO SCH ×2 (10:18→20:59)
[2022-09-14] MEDS: MICONAZOLE 2% POWDER (DESENEX AF) 90 GM TOP SCH ×2 (10:19→20:59)
[2022-09-14] MEDS: OXYBUTYNIN (DITROPAN) 5 MG TAB PO SCH ×2 (10:19→20:59)
[2022-09-14] MEDS: lisINopril 20 MG (PRINIVIL) TABLET PO SCH (10:19)
[2022-09-14] MEDS: VITAMIN D3 25 MCG (1,000 UNITS) TABLET PO SCH (10:19)
[2022-09-14 10:38] LABS: HEMATOCRIT 29 % (35-52); MEAN CORPUSCULAR HEMOGLOBIN 25 pg (25-34); MEAN CORPUSCULAR HGB CONC 31 g/dL (32-36); MEAN CORPUSCULAR VOLUME 80 fL (80-99); MEAN PLATELET VOLUME 10.6 fL (9.0-12.2); PLATELET COUNT 339 10^3/uL (130-400); WHITE BLOOD COUNT 11.5 10^3/uL (4.3-11.0)
[2022-09-14 10:45] LABS: ALBUMIN 2.3 GM/DL (3.2-4.5)
[2022-09-14 10:46] LABS: POTASSIUM 4.2 MMOL/L (3.6-5.0)
[2022-09-14 10:48] LABS: TOTAL PROTEIN 5.5 GM/DL (6.4-8.2)
[2022-09-14 10:50] LABS: BILIRUBIN,TOTAL 0.4 MG/DL (0.1-1.0)
[2022-09-14 10:52] LABS: CREATININE SERUM 0.62 MG/DL (0.60-1.30)
[2022-09-14 11:25] VITALS: BP 143/63
--- NOTE | 2022-09-14 11:41 | Physical Therapy Daily Note ---
PT Daily Note-Current Subjective Patient agrees to exercises and repositioning. Pain Section J - Health Conditions 1. Rarely or not at all 2. Occasionally 3. Frequently 4. Almost constantly 8. Unable to answer Pain Effect on Sleep: 2 Pain Interference with Therapy: 2 Pain Interference w/Day-to-Day: 2 Mental Status Patient Orientation: Person Transfers SCALE: Activities may be completed with or without assistive devices. 6-Xmwteurcoj-coiysfl completes the activity by him/herself with no assistance from a helper. 5-Set-up or Clean-up Assistance-helper sets up or cleans up; patient completes activity. [place] assists only prior to or following the activity. 4-Supervision or Touching Assistance-helper provides verbal cues and/or touching/steadying and/or contact guard assistance as patient completes activity. Assistance may be provided throughout the activity or intermittently. 3-Partial/Moderate Assistance-helper does LESS THAN HALF the effort. [place] lifts, holds or supports trunk or limbs, but provides less than half the effort. 2-Substantial/Maximal Assistance-helper does MORE THAN HALF the effort. [place] lifts or holds trunk or limbs and provides more than half the effort. 7-Xqybfitwg-dafgxt does ALL the effort. Patient does none of the effort to complete the activity. Or, the assistance of 2 or more helpers is required for the patient to complete the activity. If activity was not attempted, code reason: 7-Patient Refused. 9-Not Applicable-not attempted and the patient did not perform the activity before the current illness, exacerbation or injury. 10-Not Attempted due to Environmental Limitations-(lack of equipment, weather restraints, etc.). 88-Not Attempted due to Medical Conditions or Safety Concerns. Roll Left & Right (QC): 1 (x 2) Weight Bearing Right Lower Extremity: Right Weight Bearing/Tolerated Left Lower Extremity: Left Weight Bearing/Tolerated Exercises Supine Ex: Ankle pumps, Heel Slides, Straight leg raise, Hip abd/add Supine Reps: 15 (AAROM bilaterally) PT Short Term Goals Short Term Goals Time Frame: Sep 18, 2022 Roll Left & Right: 2 Sit to lyin Lying to sitting on side of be: 2 Sit to stand: 2 Chair/ivn-ip-rfinn transfer: 2 PT Custodial Goals Custodial Goals PT Sr Community Manager Goals Time Frame: Oct 09, 2022 Roll Left & Right (QC): 6 Sit to Lying (QC): 6 Lying-Sitting on Side/Bed(QC): 6 Sit to Stand (QC): 6 Chair/Hgl-kv-Vsdfx Xfer(QC): 6 Toilet Transfer (QC): 6 Walk 10 feet (QC): 6 Walk 50ft with 2 Turns (QC): 6 Walk 150 ft (QC): 6 PT Plan Treatment/Plan Treatment Plan: Continue Plan of Care Treatment Plan: Bed Mobility, Education, Functional Activity Earlene, Functional Strength, Gait, Safety, Therapeutic Exercise, Transfers Treatment Duration: Oct 09, 2022 Frequency: 6 times per week Estimated Hrs Per Day: .25 hour per day Patient and/or Family Agrees t: Yes Time Time In: 1020 Time Out: 1032 DATE: Sep 14, 2022 Total Billed Treatment Time: 12 Total Billed Treatment 1 visit EX 12 min BRIGETTE FRANCISCO PT Sep 14, 2022 11:41
[2022-09-14] MEDS: VANCOMYCIN 1250 MG/NS 250 ML PREMIX IV SCH ×2 (11:49→21:08)
[2022-09-14] MEDS: meTOprolol 5 MG/5 ML (LOPRESSOR) VIAL IV PRN (12:42)
--- NOTE | 2022-09-14 14:11 | Speech Therapy Daily Note ---
Speech Daily Progress Note Subjective Date Seen by Provider: Sep 14, 2022 Time Seen by Provider: 12:07 The patient was reclined in bed, sleeping, upon entrance to her room by the clinician. The patient had two staff members present, who were aiding the patient in improved positioning and comfort. The patient woke when her name was spoken by the clinician. The patient initially declined P.O. trials, however, was agreeable with encouragement from the clinician "No but I can try.". Objective The patient was seated upright in bed for a safe swallowing position. The patient requested and was agreeable to applesauce trials, only. The clinician provided the patient with oral trials of applesauce via half teaspoon. The patient accepted the bolus from the teaspoon and displayed tongue pumping behaviors in attempts to move the bolus posterior in the oral cavity. The patient completed five pharyngeal swallows for one half teaspoon. The patient displayed a delayed cough following the final swallow. The patient was provided a second teaspoon of applesauce by the clinician. Following the second teaspoon, the patient refused additional P.O. trials. The clinician provided verbal encouragement, however, the patient continued to decline. The patient displayed increased respiratory effort with each swallow. Once the patient had returned to baseline respiratory behavior, the patient stated, "I don't know why it makes me so tired." The clinician provided education to the patient regarding the swallow function and how the function does require many aspects of the body to be completed efficiently. Speech pathology will continue attempts at P.O. intake when the patient is agreeable. At this time, continue the current plan of care. Assessment Assessment Current Status: Poor Progress, Regressing Treatment Plan Continue Plan of Care Speech Short Term Goals Short Term Goals Short Term Goals 1. The patient will tolerate trials of the least restrictive consistency without s/s of suspected aspiration. Time Frame-STG: Five Days. Speech Automotive Diagnostic Technician Goals [facility] Goals 1. The patient will tolerate the least restrictive diet consistency without s/s of suspected aspiration. Time Frame: Two Weeks. Speech-Plan Treatment Plan Speech Therapy Treatment Plan: Continue Plan of Care Treatment Duration: Sep 24, 2022 Frequency: 4 times per week Estimated Hrs Per Day: .25 hour per day Rehab Potential: Guarded Pt/Family Agrees to Plan: Yes Safety Risks/Education Teaching Recipient: Patient Teaching Methods: Discussion Response to Teaching: Reinforcement Needed Time Speech Therapy Time In: 12:07 Speech Therapy Time Out: 12:25 DATE: Sep 14, 2022 Total Billed Time: 18 Billed Treatment Time 1, MELINA GALLARDO Sep 14, 2022 14:11
[2022-09-14 15:23] VITALS: BP 136/64
[2022-09-14] MEDS: D5W 1000 ML IV SOLUTION 1,000 ML IV SCH (18:02)
[2022-09-14 19:15] VITALS: BP 155/72
[2022-09-14] MEDS: PRAMIPEXOLE 0.125 MG (MIRAPEX) TABLET PO SCH (20:59)
[2022-09-14] MEDS: DONEPEZIL 10 MG (ARICEPT) TAB PO SCH (20:59)
[2022-09-14] MEDS ORDERED: TROUGH ORDER-PHARMACY XX NR (21:00)
[2022-09-14 23:24] VITALS: BP 139/65
[2022-09-15] MEDS: D5W 1000 ML IV SOLUTION 1,000 ML IV SCH (01:54)
[2022-09-15] MEDS: CEFEPIME INJECTION 1,000 MG in NS (IVPB) 50 ML IV SCH ×2 (02:59→09:28)
[2022-09-15 03:40] VITALS: BP 143/70
[2022-09-15] MEDS: inSUlin ASPART (NovoLOG) 1 UNIT/0.01 ML (CHARGE PER UNIT) SC SCH ×2 (05:25→12:24)
[2022-09-15] MEDS: ACETAMINOPHEN 500 MG TAB (TYLENOL) PO SCH (06:04)
[2022-09-15] MEDS: RT-ALBUTEROL/IPRATROPIUM 3 ML (DUONEB) VIAL INH SCH (07:28)
--- NOTE | 2022-09-15 07:32 | Progress Note - Surgery ---
MANUEL SUN 09/15/22 0732: Subjective Date Seen by a Provider: Sep 15, 2022 Time Seen by a Provider: 07:28 Subjective/Events-last exam Pt resting in bed comfortably during examination. Pt was able to follow simple commands and speak in 2-3 word sentences. States she is having some diffuse abdo nolberto pain. Denies having a BM or passing flatus. No nausea or vomiting. Per speech, pt is regressing in her ability to swallow. Nutrition via NG tube. Review of Systems General: Fatigue HEENT: Dysphasia Gastrointestinal: Abdominal Pain, Constipation; No: Nausea, Vomiting Genitourinary: No Dysuria, No Frequency Musculoskeletal: No: leg pain, foot pain Neurological: Weakness Objective Exam Vital Signs Date Time Temp Pulse Resp B/P (MAP) Pulse Ox O2 Delivery O2 Flow Rate FiO2 09/15/22 03:40 36.4 95 18 143/70 (94) 95 Room Air 3.00 3.00 09/15/22 01:00 96 09/14/22 23:24 36.4 92 18 139/65 (89) 97 Room Air 09/14/22 21:18 92 High Flow N/C 3.00 09/14/22 20:50 Nasal Cannula 2.00 09/14/22 19:15 37.3 108 20 155/72 (99) 92 Room Air 09/14/22 19:00 108 09/14/22 15:23 36.3 91 18 136/64 (88) 91 High Flow N/C 3.00 09/14/22 13:00 88 09/14/22 11:25 36.9 110 20 143/63 (89) 90 High Flow N/C 3.00 09/14/22 08:00 Nasal Cannula 2.00 09/14/22 07:56 37.2 100 22 170/75 (106) 93 High Flow N/C 3.00 I & O 09/15/22 07:00 Intake Total 2355 ml Output Total 2875 ml Balance -520 ml Capillary Refill : Less Than 3 Seconds General Appearance: No Apparent Distress, Chronically ill HEENT: Moist Mucous Membranes, Other ( NGT in place) Neck: Supple; No Lymphadenopathy (L), No Lymphadenopathy (R) Respiratory: No Accessory Muscle Use, Crackles, Decreased Breath Sounds Cardiovascular: Regular Rate, Rhythm, Normal Peripheral Pulses Peripheral Pulses: 2+ Dorsalis Pedis (R), 2+ Left Dors-Pedis (L), 2+ Radial Pulses (R), 2+ Radial Pulses (L) Gastrointestinal: soft, no organomegaly, no pulsatile mass, tenderness (diffuse ), other (Wound vac in place with no signs of infection) Extremity: No Inflammation; Pedal Edema (2+ BL) Neurologic/Psychiatric: Alert, Depressed Affect Skin: Warm/Dry, Pallor Lymphatic: No Adenopathy Results Lab Laboratory Tests 09/14/22 10:30: White Blood Count 11.5H, Red Blood Count 3.68L, Hemoglobin 9.0L, Hematocrit 29L, Mean Corpuscular Volume 80, Mean Corpuscular Hemoglobin 25, Mean Corpuscular Hemoglobin Concent 31L, Red Cell Distribution Width 24.9H, Platelet Count 339, Mean Platelet Volume 10.6, Sodium Level 140, Potassium Level 4.2, Chloride Level 103, Carbon Dioxide Level 27, Anion Gap 10, Blood Urea Nitrogen 22H, Creatinine 0.62, Estimat Glomerular Filtration Rate 92, BUN/Creatinine Ratio 35, Glucose Level 124H, Calcium Level 9.0, Corrected Calcium 10.4H, Total Bilirubin 0.4, Aspartate Amino Transf (AST/SGOT) 19, Alanine Aminotransferase (ALT/SGPT) 19, Alkaline Phosphatase 52, Total Protein 5.5L, Albumin 2.3L 09/14/22 11:29: Glucometer 148H 09/14/22 17:14: Glucometer 103 09/14/22 20:23: Vancomycin Level Trough 29.6*H 09/14/22 23:13: Glucometer 110 09/15/22 05:17: Glucometer 126H Microbiology 09/12/22 Urine Culture - Final, Complete YEAST Pseudomonas aeruginosa 09/02/22 Catheter Tip Culture - Final, Complete No growth 09/02/22 Gram Stain - Final, Complete 09/02/22 Wound Culture - Final, Complete Pseudomonas aeruginosa YEAST 08/23/22 Gram Stain - Final, Complete 08/23/22 Sputum Culture - Final, Complete Pseudomonas aeruginosa Mixed Bacterial [place] Assessment/Plan Assessment/Plan Assessment/Plan S/P Diagnostic lap with abd washout and colon resection and re-anastamosis (08/23) Dysphagia - regressing per speech therapy Hypertension- controlled Anemia- stabilized, continue to monitor Leukocytosis PNA UTI Abdominal pain constipation tube feeds through NG, continue to work with speech therapy on swallowing continue IV Abx continue supplemental O2 increase PT/OT increase pain medication to gain better control, continue IVF continue breathing treatments w/ RT, add ICS UA culture resulted in yeast (pending ID) and psuedemonas, noe in place Stool softeners PRN Per , [facility] to visit with pt and family today about post-hosp care. DILLAN TYSONTT Bong DO 09/15/225: Subjective Subjective/Events-last exam Patient unable to swallow. Ng tube feeds. Tired of the NG tube. Fatigued. Slight abdominal pain. No family at bedside at this time. Objective Exam General Appearance: Chronically ill, Thin HEENT: PERRL/EOMI, Normal ENT Inspection, Moist Mucous Membranes, Other ( NGT in place) Neck: Non Tender, Supple Respiratory: Chest Non Tender, No Accessory Muscle Use, Crackles, Decreased Breath Sounds Cardiovascular: Regular Rate, Rhythm, No JVD Gastrointestinal: soft, tenderness (diffuse minimal), other (Wound vac in place with no signs of infection) Extremity: No Inflammation; Pedal Edema (2+ BL) Neurologic/Psychiatric: Alert, Depressed Affect Skin: Warm/Dry, Pallor Lymphatic: No Adenopathy Assessment/Plan Assessment/Plan Assessment/Plan S/P Exploratory lap with abd washout and colon resection and re-anastamosis (08/23) for anastomotic leak Dysphagia - regressing per speech therapy Hypertension- controlled Anemia- stabilized, continue to monitor Leukocytosis PNA UTI Abdominal pain constipation colon cancer s/p resection tube feeds through NG, continue to work with speech therapy on swallowing continue IV Abx continue supplemental O2 increase PT/OT increase pain medication to gain better control, continue IVF continue breathing treatments w/ RT, add ICS UA culture resulted in yeast (pending ID) and psuedemonas, noe in place Stool softeners PRN Per , [facility] to visit with pt and family today about post-hosp care. Supervisory-Addendum Brief Verification & Attestation Participated in pt care: history, MDM, physical Personally performed: exam, history, MDM, supervision of care Care discussed with: Medical Student Procedures: n/a Results interpretation: Verified all documentation Verification and Attestation of Medical Student E/M Service A medical student performed and documented this service in my presence. I reviewed and verified all information documented by the medical student and made modifications to such information, when appropriate. I personally performed the physical exam and medical decision making. Niko Tyson, Sep 15, 2022,22:19 MANUEL SUN Sep 15, 2022 07:32 NIKO TYSON DO Sep 15, 2022 22:19
[2022-09-15 08:00] VITALS: BP 136/63
[2022-09-15] MEDS: levETIRAcetam 1000 mg/NS 100ml IVPB IV SCH (09:24)
[2022-09-15] MEDS: PANTOPRAZOLE 40 MG (PROTONIX) VIAL IVP SCH (09:24)
[2022-09-15] MEDS: morphine INJ 4 MG/ML 1 ML (VIAL/SYRINGE) IVP PRN (09:26)
[2022-09-15] MEDS: lisINopril 20 MG (PRINIVIL) TABLET PO SCH (09:27)
[2022-09-15] MEDS: VITAMIN D3 25 MCG (1,000 UNITS) TABLET PO SCH (09:27)
[2022-09-15] MEDS: OXYBUTYNIN (DITROPAN) 5 MG TAB PO SCH (09:27)
[2022-09-15] MEDS: risperiDONE 0.5 MG (RisperDAL) TABLET PO SCH (09:27)
[2022-09-15] MEDS: ENOXAPARIN 40 MG/0.4 ML (LOVENOX) SYR SC SCH (09:27)
[2022-09-15] MEDS: MICONAZOLE 2% POWDER (DESENEX AF) 90 GM TOP SCH (09:28)
--- NOTE | 2022-09-15 11:11 | Progress Note - Hospitalist ---
Subjective HPI/CC On Admission Date Seen by Provider: Sep 15, 2022 Time Seen by Provider: 11:00 Roseann had a very reassuring SBT yesterday. She lasted 2 hours with SBT. No overnight events, off pressors, on precedex currently for planned ct. Granddaughter reports that she and her sister spoke with Roseann yesterday and affirmed that Roseann herself does not want to do Trach/peg. 2.4L out yesterday after lasix dose, though +565cc on balance. Subjective/Events-last exam Nearly comatose End of life care to start Hospice at home tomorrow Review of Systems Neurological: Confusion Objective Exam Vital Signs Vital Signs Date Time Temp Pulse Resp B/P (MAP) Pulse Ox O2 Delivery O2 Flow Rate FiO2 09/15/22 20:25 Nasal Cannula 2.00 09/15/22 11:49 36.4 98 14 127/58 (81) 96 Capillary Refill : Less Than 3 Seconds General Appearance: Chronically ill, Other (semi-comatose) Cardiovascular: Regular Rate, Rhythm Results/Procedures Lab Patient resulted labs reviewed. 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
[2022-09-15] MEDS: FLUCONAZOLE 100 MG/50 ML 50 ML IV SCH (11:23)
[2022-09-15 11:49] VITALS: BP 127/58
[2022-09-15] MEDS ORDERED: ARTIFICAL TEARS 0.4 ML UNIT DOSE (REFRESH PLUS) OU PRN (12:45)
[2022-09-15] MEDS ORDERED: ACETAMINOPHEN 650 MG SUPP (TYLENOL) PR PRN (12:45)
[2022-09-15] MEDS ORDERED: SALIVA SUBSTITUTE 60 ML SPRAY(MOUTHKOTE) MM PRN (12:45)
[2022-09-15] MEDS ORDERED: LORazepam 1 MG (ATIVAN) TAB SL PRN (12:45)
[2022-09-15] MEDS ORDERED: BISACODYL 10 MG SUPP (DULCOLAX) PR PRN (12:45)
[2022-09-15] MEDS ORDERED: ATROPINE 1% OPHTHALMIC SOLN 2 ML SL PRN (12:45)
[2022-09-15] MEDS ORDERED: PROMETHAZINE INJ 25 MG/ML (PHENERGAN) AMP IVP PRN (12:45)
[2022-09-15] MEDS ORDERED: GLYCOPYRROLATE 0.2 MG/ML (ROBINUL) 2 ML VIAL IV PRN (12:45)
[2022-09-15] MEDS ORDERED: ONDANSETRON 4 MG/2 ML (SDV) Z0FRAN IVP PRN (12:45)
[2022-09-15] MEDS ORDERED: RT-ALBUTEROL/IPRATROPIUM 3 ML (DUONEB) VIAL INH PRN (12:45)
[2022-09-15] MEDS ORDERED: SCOPOLAMINE 1.5 MG (TRANSDERM-SCOP) PATCH TOP SCH (13:00)
[2022-09-15] MEDS ORDERED: TROUGH ORDER-PHARMACY XX NR (13:00)
--- NOTE | 2022-09-15 13:12 | Speech Therapy Daily Note ---
Speech Daily Progress Note Subjective Date Seen by Provider: Sep 15, 2022 Time Seen by Provider: 12:27 The patient was seated upright in bed, eyes opened, upon entrance to her room by the clinician. The patient has two family members present at bedside, who remain for completion of the skilled treatment session. The patient struggles with fatigue and remaining at an appropriate level of alertness, however, continues excellent effort. The patient is agreeable to participation in P.O. trials, requesting applesauce. Objective With rest breaks provided following approximately every two boluses, the patient consumed two ounces of puree (applesauce). Increased respiratory effort and fatigue were noted, as well as, eyes closed between boluses due to fatigue and necessary recovery. The patient displayed a delayed, rigorous cough following two swallows of applesauce. The patient was able to expectorate mucus and applesauce into the suction following the rigorous cough displayed. The patient was additionally provided four ice chips. The patient displayed a delayed cough following two of the four ice chips. While the patient improved minimally on this date, the patient's fatigue remains as the largest barrier for safe P.O. intake. The patient was able to consume two ounces of applesauce in 37 minutes. The clinician does not believe the patient could appropriately meet nutritional needs with P.O. intake due to fatigue and lethargy. At this time, the clinician agrees with the current plan of care as limited progress has been achieved (comfort care decision). Assessment Assessment Current Status: Poor Progress Treatment Plan Continue Plan of Care Speech Short Term Goals Short Term Goals Short Term Goals 1. The patient will tolerate trials of the least restrictive consistency without s/s of suspected aspiration. Time Frame-STG: Five Days. Speech Half-Way Goals Half-Way Goals 1. The patient will tolerate the least restrictive diet consistency without s/s of suspected aspiration. Time Frame: Two Weeks. Speech-Plan Treatment Plan Speech Therapy Treatment Plan: Continue Plan of Care Treatment Duration: Sep 24, 2022 Frequency: 4 times per week Estimated Hrs Per Day: .25 hour per day Rehab Potential: Guarded Pt/Family Agrees to Plan: Yes Safety Risks/Education Teaching Recipient: Patient, Family Teaching Methods: Demonstration, Discussion Response to Teaching: Verbalize Understanding (Family members.) Education Topics Provided: Results, Recommendations, Plan of Care, Safe Swallowing Precautions. Time Speech Therapy Time In: 12:27 Speech Therapy Time Out: 13:04 DATE: Sep 15, 2022 Total Billed Time: 37 Billed Treatment Time 1, CLAIRE MELINA GASPAR Sep 15, 2022 13:12
--- NOTE | 2022-09-15 13:18 | Physical Therapy Progress Note ---
Therapy Progress Note Nurse requested hold as patient is discussing progression of patients plan of care. Will continue to follow patient and advance PT plan of care as patient is able to tolerate. EDMUNDO GREGORY PT Sep 15, 2022 13:18
--- NOTE | 2022-09-15 14:19 | Speech Therapy Daily Note ---
Speech Daily Progress Note Subjective Date Seen by Provider: Sep 15, 2022 Time Seen by Provider: 13:30 The patient was lying in bed, sleeping, upon entrance to the room by the clinician. One family member remained in the room and at bedside for the skilled treatment session. The patient woke to a verbal greeting and participated in the therapy. Objective The patient and patient's family requested additional information from the clinician regarding appropriate and safe options for the patient to consume following discharge. The clinician provided education to the patient's family and patient regarding her current high aspiration risk with P.O. intake and the clinician could not provide a "safe" recommendation but a "least aspirated consistency." The patient's family verbalized comprehension of the discussed material. At this time, energy conservation would be beneficial for the patient. Due to this, the clinician would recommend water via teaspoon (for comfort and oral moisture), as well as, puree or soft solids to avoid large periods of masticati on. Most importantly, the clinician shared safe swallow precautions for a second time including: fully upright and alert, small single bites and sips, and allowing for rest breaks and recovery. The patient's family and the patient verbalized comprehension of the discussion and denied additional questions for the clinician at this time. Assessment Assessment Current Status: Poor Progress Treatment Plan Continue Plan of Care Speech Short Term Goals Short Term Goals Short Term Goals 1. The patient will tolerate trials of the least restrictive consistency without s/s of suspected aspiration. Time Frame-STG: Five Days. Speech Snf Goals School Aide Goals 1. The patient will tolerate the least restrictive diet consistency without s/s of suspected aspiration. Time Frame: Two Weeks. Speech-Plan Treatment Plan Speech Therapy Treatment Plan: Continue Plan of Care Treatment Duration: Sep 24, 2022 Frequency: 4 times per week Estimated Hrs Per Day: .25 hour per day Rehab Potential: Guarded Pt/Family Agrees to Plan: Yes Safety Risks/Education Teaching Recipient: Patient, Family Teaching Methods: Discussion Response to Teaching: Verbalize Understanding Education Topics Provided: Safe Swallowing Precautions Time Speech Therapy Time In: 13:30 Speech Therapy Time Out: 13:40 DATE: Sep 15, 2022 Total Billed Time: 10 Billed Treatment Time 1CLAIRE ELIZABETH ST Sep 15, 2022 14:19
[2022-09-15] MEDS: morphine INJ 4 MG/ML 1 ML (VIAL/SYRINGE) IV PRN (23:50)
[2022-09-16] MEDS: morphine INJ 4 MG/ML 1 ML (VIAL/SYRINGE) IV PRN ×3 (04:00→13:15)
--- NOTE | 2022-09-16 06:20 | Progress Note - Surgery ---
Subjective Date Seen by a Provider: Sep 16, 2022 Time Seen by a Provider: 06:15 Subjective/Events-last exam Roseann Mcnamara was seen at bedside this morning. She was alert and responsive to my questions, uncertain if she understands all of my questions due to some of her answers being repetitive or unrelated. Takes some time to answer my questions and intermittently falls asleep in interview. States she feels "very tired". Denies any chest or abdominal pain. NG tube out. She is currently on comfort care measures with plans for home hospice today. Review of Systems General: No Chills, No Night Sweats HEENT: No Head Aches, No Visual Changes Cardiovascular: No: Chest Pain, Palpitations Gastrointestinal: No: Vomiting, Abdominal Pain Neurological: Weakness; No: Change in speech limited ROS due to patient's inability to answer questions. Unsure if she understands my questions. Objective Exam Vital Signs Date Time Temp Pulse Resp B/P (MAP) Pulse Ox O2 Delivery O2 Flow Rate FiO2 09/15/22 20:25 Nasal Cannula 2.00 09/15/22 11:49 36.4 98 14 127/58 (81) 96 High Flow N/C 3.00 09/15/22 08:00 36.2 94 16 136/63 (87) 92 High Flow N/C 09/15/22 08:00 Nasal Cannula 2.00 09/15/22 07:29 96 High Flow N/C 3.00 09/15/22 07:00 96 I & O 09/16/22 07:00 Intake Total 50 ml Output Total 950 ml Balance -900 ml Capillary Refill : Less Than 3 Seconds General Appearance: No Apparent Distress, Chronically ill HEENT: PERRL/EOMI, Moist Mucous Membranes Neck: Non Tender, Supple Respiratory: Chest Non Tender, No Accessory Muscle Use, Crackles, Decreased Breath Sounds Cardiovascular: Regular Rate, Rhythm, Normal Peripheral Pulses Peripheral Pulses: 2+ Dorsalis Pedis (R), 2+ Left Dors-Pedis (L), 2+ Radial Pulses (R), 2+ Radial Pulses (L) Gastrointestinal: soft, other (Wound vac in place with no signs of infection) Extremity: No Inflammation; Pedal Edema (BL, similar to previous) Neurologic/Psychiatric: Alert, Normal Mood/Affect, Other (easily fatigable) Skin: Warm/Dry, Pallor Lymphatic: No Adenopathy Results Lab Laboratory Tests 09/15/22 11:45: Glucometer 123H Microbiology 09/12/22 Urine Culture - Final, Complete YEAST Pseudomonas aeruginosa 09/02/22 Catheter Tip Culture - Final, Complete No growth 09/02/22 Gram Stain - Final, Complete 09/02/22 Wound Culture - Final, Complete Pseudomonas aeruginosa YEAST 08/23/22 Gram Stain - Final, Complete 08/23/22 Sputum Culture - Final, Complete Pseudomonas aeruginosa Mixed Bacterial Maida Assessment/Plan Assessment/Plan Assessment/Plan S/P Exploratory lap with abd washout and colon resection and re-anastamosis (08/23) for anastomotic leak Dysphagia - regressing per speech therapy Hypertension- controlled Anemia- stabilized, continue to monitor Leukocytosis PNA UTI Abdominal pain constipation colon cancer s/p resection Comfort care measures NG tube removed IV abx DCed continue supplemental O2 Pain control, patient currently in no pain Plans for home hospice today ROCIO PEREA Sep 16, 2022 06:20
[2022-09-16] MEDS ORDERED: MORP100S7 PO (06:54)
[2022-09-16] MEDS ORDERED: LORA2ORA PO (06:54)
--- NOTE | 2022-09-16 06:54 | Discharge Summary ---
Discharge Summary Hospital Course Was the Problem List Reviewed?: Yes Problems/Dx: (1) Sepsis Status: Resolved Qualifiers: (2) Acute kidney injury Status: Resolved (3) Dysphasia Status: Acute (4) Anemia Status: Acute (5) CKD (chronic kidney disease) Status: Chronic Qualifiers: Qualified Codes: N18.31 - Chronic kidney disease, stage 3a (6) Alzheimer disease Status: Chronic (7) Hypertension Status: Chronic Qualifiers: Qualified Codes: I10 - Essential (primary) hypertension (8) GERD (gastroesophageal reflux disease) Status: Chronic (9) Colon cancer (10) Seizure disorder Status: Chronic Hospital Course Date of Admission: Aug 18, 2022 at 08:55 Admission Diagnosis : Family Physician/Provider: [place] Date of Discharge: 09/16/22 Discharge Diagnosis: [ ] Hospital Course: Lengthy course after she underwent colon cancer resection but had complications afterwards with respiratory failure requiring long intubation and RA requiring Nephrology consult which helped regain renal function. Overall she required extensive aggressive care with wound care and TF thru NGT and multiple rounds of PNA treatment and other modalities before the decision was made to place her DNR and comfort care and ultimately DC home on Hospice. Her prognosis remained extremely poor the entire hospital course given her dx of dementia and terminal colon cancer. Labs and Pending Lab Test: Laboratory Tests 09/15/22 11:45: Glucometer 123H Microbiology 09/12/22 Urine Culture - Final, Complete YEAST Pseudomonas aeruginosa 09/02/22 Catheter Tip Culture - Final, Complete No growth 09/02/22 Gram Stain - Final, Complete 09/02/22 Wound Culture - Final, Complete Pseudomonas aeruginosa YEAST 08/23/22 Gram Stain - Final, Complete 08/23/22 Sputum Culture - Final, Complete Pseudomonas aeruginosa Mixed Bacterial Ma[place] Home Meds Active Reported Pramipexole Dihydrochloride (Pramipexole Di-HCl) 0.25 Mg Tablet 0.25 Mg PO HS Ferrous Sulfate 220 Mg (44 Mg Iron)/5 Ml Elix 5 Ml PO MO,WE,FR MIX WITH CUP APPLE JUICE AND TAKE WITH FOOD Vitamin D3 (Cholecalciferol (Vitamin D3)) 25 Mcg (1000 Unit) Capsule 25 Mcg PO DAILY Oxybutynin Chloride 5 Mg Tablet 5 Mg PO BID Levetiracetam 1,000 Mg Tablet 1,000 Mg PO BID Omeprazole 20 Mg Tablet.dr 20 Mg PO BID LAST FILLED 02-17-2022 #180/90 DAY SUPPLY Risperidone 0.5 Mg Tablet 0.5 Mg PO BID Donepezil HCl 10 Mg Tablet 10 Mg PO HS Lisinopril 20 Mg Tablet 20 Mg PO DAILY Metoprolol Succinate 25 Mg Tab.er.24h 25 Mg PO DAILY Assessment/Pt Instructions Hospice Discharge Planning: <30 minutes discharge planning Discharge Instructions Discharge Diet: No Restrictions Discharge Physical Examination Vital Signs Vital Signs Date Time Temp Pulse Resp B/P (MAP) Pulse Ox O2 Delivery O2 Flow Rate FiO2 09/15/22 20:25 Nasal Cannula 2.00 09/15/22 11:49 36.4 98 14 127/58 (34) 96 Allergies: Coded Allergies: amoxicillin (Verified Allergy, Unknown, ENDS UP IN HOSPITAL DOESN'T KNOW FOR SURE, 08/12/22) moxifloxacin (Verified Allergy, Unknown, NOT SURE, 08/12/22) penicillin G (Unverified Allergy, Unknown, ?, 08/12/22) polyethylene glycol 3350 (Verified Allergy, Unknown, SKIN ISSUES TURNS BROWN, 08/12/22) Sulfa (Sulfonamide Antibiotics) (Verified Adverse Reaction, Unknown, EMESIS, 08/18/22) aspirin (Verified Adverse Reaction, Unknown, EMESIS, 08/18/22) Discharge Summary Date of Admission Aug 18, 2022 at 08:55 Date of Discharge Discharge Date: Sep 16, 2022 Comfort Measures/ End of Life Care: Comfort Measures Discharge Diagnosis Assess & Plan/Chief Complaint 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
--- NOTE | 2022-09-16 09:46 | Physical Therapy Progress Note ---
Therapy Progress Note Patient currently on comfort care. PT to dismiss patient from services at this time. BRIGETTE FRANCISCO PT Sep 16, 2022 09:46
[2022-09-16 14:21] VITALS: BP 127/58
[2022-09-18] MEDS ORDERED: SCOPOLAMINE PATCH REMOVAL TP SCH (12:59)
--- NOTE | 2022-09-20 11:58 | Physician Query Clarification ---
[facility] Path Diagnosis Admission/Discharge Admission Date: Aug 18, 2022 at 08:55 Discharge Date: Sep 16, 2022 at 14:12 Dr. Gerber, The medical record reflects the following: [insert the mass/tumor/lesion] The pathology report findings document: Ca ascending colon with 1/28 lymph nodes positive for adenocarcinoma and intraperitoneal mass showing benign lymphangioma Question: Do you agree with the pathology report findings of Ca ascending colon with lymph node metastasis and benign lymphangioma intraperitoneum? Please document a response in Progress Notes or Discharge Summary. 1. Agree with pathological diagnosis of Ca ascending colon with lymph node metastasis and benign lymphangioma intraperitoneum. 2. No - Do not agree with pathology findings of Ca ascending colon with lymph node metastasis and benign lymphangioma intraperitoneum. 3. Other, with explanation of the clinical findings. 4. Clinically undetermined, no explanation for the clinical findings. Is is appropriate for a provider to add additional documentation (addenda) to the record to explain the evaluation & care up to 30 days post-discharge. See [facility] and Patient Record Guidelines below. The [facility] Record of Care, Standard; [id number] 1: "The hospital has a written policy that required timely entry of information into the medical record." According to [facility] Patient Record Guidelines, ARTICLE XXI. CORRECTIONS AND ADDENDA, Modifications (addenda amendments, corrections and retractions) should be made timely and no later than regulatory requirements for record completion (i.e. 30 days post discharge). Official coding guidelines require coders to query the physician for agreement with pathology findings that occur during the encounter. Coders are not allowed to pull information directly from the path reports. PHYSICIAN RESPONSE Pathology Report Findings: Yes,agree w/path dx as documented In responding to this query, please exercise your independent professional judgment. The purpose of this communication is to more accurately reflect the complexity of your patients condition. The fact that a question is asked does not imply that any particular answer is desired or expected. Thank you for your timely response to this clarification. Requestors name: Luis M THIS PHYSICIAN QUERY FORM IS A PERMANENT PART OF THE MEDICAL RECORD LUIS M NEFF Sep 20, 2022 11:58 KOBY GERBER DO Sep 20, 2022 17:41
== END 2022-09-16 14:12 | disposition hospice, home (50) | DRG 329 ==
LOC: 4TH 08:55 → SURG 08:56 → 4TH 13:53 → ICU 08-22 08:03 → 4TH 09-07 10:25
PROVIDERS: ADMIT Surgery; ATTEND Internal Medicine
PROC: 0DBW0ZZ Excision of Peritoneum, Open Approach (ICD-10-PCS; 2022-08-18)
PROC: 0DTF0ZZ Resection of Right Large Intestine, Open Approach (ICD-10-PCS; principal; 2022-08-18 10:59)
PROC: 5A09357 Assistance with Respiratory Ventilation, Less than 24 Consecutive Hours, Continuous Positive Airway Pressure (ICD-10-PCS; 2022-08-22)
PROC: 0DBL0ZZ Excision of Transverse Colon, Open Approach (ICD-10-PCS; 2022-08-23)
PROC: 0DBB0ZZ Excision of Ileum, Open Approach (ICD-10-PCS; 2022-08-23)
PROC: 5A1955Z Respiratory Ventilation, Greater than 96 Consecutive Hours (ICD-10-PCS; 2022-08-23)
DX: C18.2 Malignant neoplasm of ascending colon (principal); A40.8 Other streptococcal sepsis; R65.21 Severe sepsis with septic shock; J96.01 Acute respiratory failure with hypoxia; J18.9 Pneumonia, unspecified organism; K91.89 Other postprocedural complications and disorders of digestive system; T81.32XA Disruption of internal operation (surgical) wound, not elsewhere classified, initial encounter; Z66 Do not resuscitate; Z51.5 Encounter for palliative care; T81.44XA Sepsis following a procedure, initial encounter; C77.2 Secondary and unspecified malignant neoplasm of intra-abdominal lymph nodes; N17.9 Acute kidney failure, unspecified; J98.11 Atelectasis; E46 Unspecified protein-calorie malnutrition; E87.1 Hypo-osmolality and hyponatremia; E87.20 Acidosis, unspecified; R13.12 Dysphagia, oropharyngeal phase; D69.6 Thrombocytopenia, unspecified; Z68.37 Body mass index [BMI] 37.0-37.9, adult; D18.1 Lymphangioma, any site; E87.70 Fluid overload, unspecified; E83.39 Other disorders of phosphorus metabolism; I12.9 Hypertensive chronic kidney disease with stage 1 through stage 4 chronic kidney disease, or unspecified chronic kidney disease; N18.9 Chronic kidney disease, unspecified; G30.9 Alzheimer's disease, unspecified; F02.80 Dementia in other diseases classified elsewhere, unspecified severity, without behavioral disturbance, psychotic disturbance, mood disturbance, and anxiety; G40.909 Epilepsy, unspecified, not intractable, without status epilepticus; E66.01 Morbid (severe) obesity due to excess calories; K21.9 Gastro-esophageal reflux disease without esophagitis; K57.90 Diverticulosis of intestine, part unspecified, without perforation or abscess without bleeding; K64.0 First degree hemorrhoids; D64.9 Anemia, unspecified; I27.20 Pulmonary hypertension, unspecified; Z79.899 Other long term (current) drug therapy; Z88.6 Allergy status to analgesic agent; Z88.1 Allergy status to other antibiotic agents; Z88.2 Allergy status to sulfonamides; Z91.09 Other allergy status, other than to drugs and biological substances
CPT/HCPCS: 36415; 36569; 36600; 71045; 71250; 71275; 74176; 76937; 80048; 80053; 80076; 80170; 80202; 81000; 82248; 82274; 82805; 82947; 83605; 83735; 84100; 84145; 84478; 85007; 85014; 85018; 85025; 85027; 86850; 86900; 86901; 86920; 87040; 87070; 87077; 87081; 87088; 87186; 87205; 88305; 88307; 88309; 93005; 94002; 94003; 94640; 94660; 94664; 94760; 94799